=== PATIENT | female | born 1935 | race Caucasian/White ===

== ENCOUNTER → 2016-10-16 | Outpatient (CLI) | payer BC ==
[~2016-10-16] MED LIST: ALLO100T PO; ASCO500T16 PO; ASPCH81X PO; CHOL100010 PO; DRON400T PO; EZET10TA63 PO; FAMO1TAB47 PO; FURO-85 PO; GLYCDRO6 OPB; LACTTAB7 PO; LORA-741 PO; LPR25 PO; MULT-190 PO; MULT-845 PO; PRLSR20 PO
--- NOTE | 2016-10-16 12:29 | DIAGNOSTIC IMAGING REPORT ---
RENAL ULTRASOUND HISTORY: Acute renal injury. Acute renal failure. COMPARISON: Abdomen and pelvis CT 03/02/2014. FINDINGS: Right kidney: 8.2 cm. No hydronephrosis. The renal cortex is echogenic. A 7 mm upper pole cyst. Mild to moderate cortical thinning. Left kidney: 8.8 cm. No hydronephrosis. The renal cortex is diffusely echogenic. Mild to moderate cortical thinning. Bladder: No bladder wall thickening. The bilateral ureteral jets were identified. IMPRESSION: 1. No hydronephrosis. 2. Echogenic kidneys consistent with medical renal disease. 3. Mild to moderate cortical renal thinning. Electronically signed by: Klaus Moreno M.D. 10/16/2016 12:27 PM Dictated Date/Time: 10/16/2016 12:26 PM
[2016-10-16 12:34] LABS: CALCIUM 9.6 mg/dl (8.5-10.1)
[2016-10-16 12:35] LABS: BLOOD UREA NITROGEN 35 mg/dl (7-18); BUN/CREATININE RATIO 21.9 (10-20); CARBON DIOXIDE 30 mmol/L (21-32); CHLORIDE 103 mmol/L (98-107); GLUCOSE 73 mg/dl (70-99); POTASSIUM 4.1 mmol/L (3.5-5.1); SODIUM 137 mmol/L (136-145)
== END | disposition home or self-care (01) ==
LOC: C.ULTR 11:33
PROVIDERS: ATTEND Family Medicine
DX: N17.9 Acute kidney failure, unspecified (principal)

== ENCOUNTER 2016-12-08 17:59 | Emergency (ER) | payer BC ==
[~2016-12-08] VITALS: Ht 157.5 cm; Wt 84.3 kg
[~2016-12-08 17:59] MED LIST changes: -FAMO1TAB47 PO
[2016-12-08 18:10] VITALS: TEMP 36.7; Ht 157.5 cm; Wt 84.3 kg
--- NOTE | 2016-12-08 20:07 | EMERGENCY ROOM VISIT NOTE ---
History Report prepared by Raghav: Helena Brownlee Under the Supervision of: Dr. Darrion Vasquez M.D. First contact with patient: 19:44 Chief Complaint: OTHER COMPLAINT Stated Complaint: COLOSTOMY BAG CLOGGED History of Present Illness The patient is an 81 year old female who presents to the Emergency Room with complaints of an episode of a possible clog in her colostomy bag starting two days ago. The patient reports that she had the colostomy placed 3 years ago because stool was coming out her vagina. She states that it was placed by a Pat Doctor. The patient states that she has had stool come out her vagina before, but they stated that it was normal and it went away. She states that it has started again and won't go in the bag. She reports that she is having intermittent abdominal pain. She describes it as "feeling full." She complains of excessive burping. Source of History: patient Onset: two days ago Position: other (global) Quality: other (fullness) Timing: other (episode) Associated Symptoms: + abdominal pain Note: The patient complains of excessive burping. Review of Systems See HPI for pertinent positives & negatives. A total of 10 systems reviewed and were otherwise negative. Past Medical & Surgical Medical Problems: (1) Appendectomy (2) Asthma (3) Carpal tunnel syndrome (4) Diab Reyna Wo Compl, Type Ii Or Unspec Type, Not Uncntrld (5) Diverticulitis Colon (W/O Ment Of Hemorrhage) (6) ESOPHAGEAL REFLUX (7) HYPERTENSION NOS (8) Hysterectomy (9) LUMBAR DISC DISPLACEMENT (10) Pacemaker Family History Diabetes mellitus Hypertension Kidney disease Kidney stones Social History Smoking Status: Never Smoker Alcohol Use: none Drug Use: none Marital Status: single Housing Status: lives alone Occupation Status: retired Current/Historical Medications Scheduled Allopurinol (Zyloprim), 100 MG PO QAM Aspirin (Aspirin Chewable), 81 MG PO QAM Dronedarone Hcl (Multaq), 1 TAB PO BID Ezetimibe (Zetia), 10 MG PO QPM Famotidine (Famotidine), 20 MG PO DAILY Qciezban-Nlewzwtmpslq-Zrgdblzq (Artificial Tears), 1 DROP OPB QID Lactobacillus (Acidophilus), 20 MG PO QAM Lorazepam (Ativan), 0.5 MG PO HS Metoprolol Tartrate (Lopressor), 25 MG PO BID Multiple Vitamins W/ Minerals (Centrum Silver Adult 50+), 1 TAB PO QAM Ocuvite Preservision (Ocuvite Preservision), 1 TAB PO BID Scheduled PRN Furosemide (Lasix), 20 MG PO DAILY PRN for LEG SWELLING Allergies Coded Allergies: Iodinated Contrast Media (Verified Allergy, Severe, Difficulty Breathing, Severe Hives, 09/23/15) Sulfa Drugs (Verified Allergy, Mild, 09/23/15) Cephalexin (Verified Allergy, Unknown, Unknown, 09/23/15) Diphenhydramine (Verified Allergy, Unknown, DOES NOT REMEMBER, 09/23/15) Potassium Chloride (Verified Allergy, Unknown, unknown, 09/23/15) Uncoded Allergies: MUSHROOMS (Allergy, Unknown, ., 05/23/15) Physical Exam Vital Signs Date Time Temp Pulse Resp B/P (MAP) Pulse Ox O2 Delivery O2 Flow Rate FiO2 12/08/16 23:15 73 18 178/81 96 Room Air 12/08/16 21:49 67 12/08/16 21:15 70 18 190/80 96 Room Air 12/08/16 18:10 36.7 68 17 180/92 96 Room Air Physical Exam GENERAL: Patient is a healthy-appearing well-nourished HEAD: Normocephalic atraumatic EYES: Ocular movements intact pupils equal and react to light OROPHARYNX mucous membranes are moist no exudates present no erythema or edema present NECK: Supple no nuchal rigidity CHEST: Good equal expansion LUNGS: Clear and equal to auscultation CARDIAC: Normal S1 and S2 ABDOMEN: Soft nontender no guarding. Colostomy in place. BACK: No CVA tenderness EXTREMITIES: No pain upon palpation normal muscle strength in all groups no clubbing cyanosis or edema NEURO: Patient is following commands and answering questions appropriately. Alert and oriented x3 Cranial Nerves 2-12 grossly intact Medical Decision & Procedures ER Provider Diagnostic Interpretation: Radiology results as stated below per my review and radiologist interpretation: ABD/PELVIS ORAL CONT ONLY CLINICAL HISTORY: Abdominal pain. COMPARISON STUDY: CT of the abdomen and pelvis May 02, 2013 and renal ultrasound October 16, 2016. FINDINGS: Evaluation of the abdomen and pelvis is suboptimal on this unenhanced exam. Unenhanced images of the liver, spleen, adrenal glands, kidneys and pancreas are unremarkable. There is no biliary or pancreatic ductal dilatation. There is no peripancreatic or pericholecystic infiltration. There are small gallstones within the gallbladder. No hydronephrosis is present. There are postoperative findings consistent with a sigmoid resection and Tanika pouch and end colostomy. Oral contrast reaches the colostomy bag. There is no evidence for a bowel obstruction. A fat-containing umbilical hernia is present. The appendix is not visualized. No pelvic lymphadenopathy is present. No abscess or ascites is identified. IMPRESSION: 1. Status post sigmoid colon resection with formation of a Tanika pouch and end colostomy. No evidence for a bowel obstruction. Oral contrast reaches the colostomy bag. Fat-containing parastomal hernia. 2. Cholelithiasis. 3. Fat-containing umbilical hernia. Electronically signed by: Mike Zuniga M.D. 12/08/2016 11:11 PM Dictated Date/Time: 12/08/2016 11:00 PM Laboratory Results 12/08/16 20:11 Red Blood Count 4.09, Mean Corpuscular Volume 91.7, Mean Corpuscular Hemoglobin 32.0, Mean Corpuscular Hemoglobin Concent 34.9, Mean Platelet Volume 9.6, Neutrophils (%) (Auto) 58.4, Lymphocytes (%) (Auto) 21.3, Monocytes (%) (Auto) 17.5, Eosinophils (%) (Auto) 2.4, Basophils (%) (Auto) 0.2, Neutrophils # (Auto ) 5.07, Lymphocytes # (Auto) 1.85, Monocytes # (Auto) 1.52, Eosinophils # (Auto ) 0.21, Basophils # (Auto) 0.02 12/08/16 20:11 Test 12/08/16 20:11 White Blood Count 8.69 K/uL (4.8-10.8) Red Blood Count 4.09 M/uL (4.2-5.4) Hemoglobin 13.1 g/dL (12.0-16.0) Hematocrit 37.5 % (37-47) Mean Corpuscular Volume 91.7 fL (80-100) Mean Corpuscular Hemoglobin 32.0 pg (25-34) Mean Corpuscular Hemoglobin Concent 34.9 g/dl (32-36) Platelet Count 218 K/uL (130-400) Mean Platelet Volume 9.6 fL (7.4-10.4) Neutrophils (%) (Auto) 58.4 % Lymphocytes (%) (Auto) 21.3 % Monocytes (%) (Auto) 17.5 % Eosinophils (%) (Auto) 2.4 % Basophils (%) (Auto) 0.2 % Neutrophils # (Auto) 5.07 K/uL (1.4-6.5) Lymphocytes # (Auto) 1.85 K/uL (1.2-3.4) Monocytes # (Auto) 1.52 K/uL (0.11-0.59) Eosinophils # (Auto) 0.21 K/uL (0-0.5) Basophils # (Auto) 0.02 K/uL (0-0.2) RDW Standard Deviation 47.5 fL (36.4-46.3) RDW Coefficient of Variation 14.2 % (11.5-14.5) Immature Granulocyte % (Auto) 0.2 % Immature Granulocyte # (Auto) 0.02 K/uL (0.00-0.02) Urine Color YELLOW Urine Appearance CLEAR (CLEAR) Urine pH 6.5 (4.5-7.5) Urine Specific Catlin 1.014 (1.000-1.030) Urine Protein NEG (NEG) Urine Glucose (UA) NEG (NEG) Urine Ketones NEG (NEG) Urine Occult Blood NEG (NEG) Urine Nitrite NEG (NEG) Urine Bilirubin NEG (NEG) Urine Urobilinogen NEG (NEG) Urine Leukocyte Esterase MODERATE (NEG) Urine WBC (Auto) 10-30 /hpf (0-5) Urine RBC (Auto) 0-4 /hpf (0-4) Urine Hyaline Casts (Auto) 0 /lpf (0-5) Urine Epithelial Cells (Auto) 10-20 /lpf (0-5) Urine Bacteria (Auto) NEG (NEG) Anion Gap 9.0 mmol/L (3-11) Est Creatinine Clear Calc Drug Dose 26.8 ml/min Estimated GFR () 34.2 Estimated GFR (Non- 29.5 BUN/Creatinine Ratio 19.8 (10-20) Calcium Level 9.3 mg/dl (8.5-10.1) Total Bilirubin 0.5 mg/dl (0.2-1) Direct Bilirubin < 0.1 mg/dl (0-0.2) Aspartate Amino Transf (AST/SGOT) 17 U/L (15-37) Alanine Aminotransferase (ALT/SGPT) 18 U/L (12-78) Alkaline Phosphatase 120 U/L (45-117) Total Protein 7.8 gm/dl (6.4-8.2) Albumin 3.8 gm/dl (3.4-5.0) Lipase 193 U/L (73-393) Labs reviewed by ED physician. ED Course 1946: Past medical records reviewed. The patient was evaluated in room B6. A complete history and physical examination was performed. 2120: I reevaluated the patient and she was doing well. 2323: Upon reexamination the patient is resting comfortably. I discussed results and treatment plan with the patient. She verbalizes agreement and understanding. The patient is ready for discharge. Medical Decision Differential diagnosis: Etiologies such as appendicitis, diverticulitis, PUD, biliary pathology, UTI, pancreatitis, obstruction, mesenteric ischemia, aortic pathology, infections, inflammatory bowel disease, renal colic, as well as others were entertained. This is an 81-year-old female who presents emergency department complaining of colostomy bag being blocked. The patient believes she hasn't obstruction however has a normal examination. She was sent for CAT scan of the abdomen and pelvis which shows the contrast going all the way through the colostomy bag. She does not have an elevation in her white blood cell count. Her renal profile liver profile all normal at this point. I do believe that the patient can be safely discharged home for follow-up with her primary care physician. Patient was in agreement with the treatment plan. Medication Reconcilliation Current Medication List: was personally reviewed by me Blood Pressure Screening Patient's blood pressure: Elevated blood pressure Blood pressure disposition: Referred to PCP Impression Primary Impression: Abdominal pain Scribe Attestation The scribe's documentation has been prepared under my direction and personally reviewed by me in its entirety. I confirm that the note above accurately reflects all work, treatment, procedures, and medical decision making performed by me. Departure Information Dispostion Home / Self-Care Referrals Patti James M.D. (PCP) Forms HOME CARE DOCUMENTATION FORM, IMPORTANT VISIT INFORMATION, WORK / SCHOOL INSTRUCTIONS Patient Instructions My [facility] [place] Additional Instructions Clear liquid diet next 48 hours Follow up with DR Tejeda's office You were found to have an elevated blood pressure today (>120 sytolic or >90 diastolic). Per medicare guidelines, you need to follow up with this blood pressure screening with your Primary Care Physician (PCP). For a new PCP call [phone]. You have been examined and treated today on an emergency basis only. This is not a substitute for, or an effort to provide, complete comprehensive medical care. It is impossible to recognize and treat all injuries or illnesses in a single emergency department visit. It is therefore important that you follow up closely with Dr James. Call as soon as possible for an appointment. Thank you for your time and consideration. I look forward to speaking with you again soon. Please don't hesitate to call us if you have any questions. Problem Qualifiers Primary Impression: Abdominal pain Abdominal location: generalized Qualified Codes: R10.84 - Generalized abdominal pain
[2016-12-08 20:31] LABS: BASO % 0.2 %; BASO ABS # 0.02 K/uL (0-0.2); COMPLETE YES; EOS % 2.4 %; HEMATOCRIT 37.5 % (37-47); IG% 0.2 %; LYMPH % 21.3 %; LYMPH ABS # 1.85 K/uL (1.2-3.4); MEAN CELL VOLUME 91.7 fL (80-100); MEAN CORPUSCULAR HGB CONC 34.9 g/dl (32-36); MEAN PLATELET VOLUME 9.6 fL (7.4-10.4); MONO % 17.5 %; NEUT % 58.4 %; PLATELET COUNT 218 K/uL (130-400); RED BLOOD COUNT 4.09 M/uL (4.2-5.4); WHITE BLOOD COUNT 8.69 K/uL (4.8-10.8)
[2016-12-08 20:43] LABS: URINE APPEARANCE CLEAR (CLEAR); URINE BILIRUBIN NEG (NEG); URINE COLOR YELLOW; URINE NITRITE NEG (NEG); URINE PH 6.5 (4.5-7.5); URINE SPECIFIC GRAVITY 1.014 (1.000-1.030); UROBILINOGEN NEG (NEG)
[2016-12-08 20:52] LABS: MANUAL MICROSCOPIC REQUIRED? NO; REVIEW REQ? NO
[2016-12-08 20:58] LABS: ALT/SGPT 18 U/L (12-78); BLOOD UREA NITROGEN 32 mg/dl (7-18); BUN/CREATININE RATIO 19.8 (10-20); CALCIUM 9.3 mg/dl (8.5-10.1); CARBON DIOXIDE 28 mmol/L (21-32); CHLORIDE 102 mmol/L (98-107); GLUCOSE 102 mg/dl (70-99); SODIUM 139 mmol/L (136-145)
[2016-12-08 21:01] LABS: ALKALINE PHOSPHATASE 120 U/L (45-117); AST/SGOT 17 U/L (15-37)
[2016-12-08] MEDS ORDERED: FAMO1TAB47 PO (21:04)
--- NOTE | 2016-12-08 23:12 | DIAGNOSTIC IMAGING REPORT ---
ABD/PELVIS ORAL CONT ONLY CLINICAL HISTORY: Abdominal pain. COMPARISON STUDY: CT of the abdomen and pelvis May 02, 2013 and renal ultrasound October 16, 2016. FINDINGS: Evaluation of the abdomen and pelvis is suboptimal on this unenhanced exam. Unenhanced images of the liver, spleen, adrenal glands, kidneys and pancreas are unremarkable. There is no biliary or pancreatic ductal dilatation. There is no peripancreatic or pericholecystic infiltration. There are small gallstones within the gallbladder. No hydronephrosis is present. There are postoperative findings consistent with a sigmoid resection and Tanika pouch and end colostomy. Oral contrast reaches the colostomy bag. There is no evidence for a bowel obstruction. A fat-containing umbilical hernia is present. The appendix is not visualized. No pelvic lymphadenopathy is present. No abscess or ascites is identified. IMPRESSION: 1. Status post sigmoid colon resection with formation of a Tanika pouch and end colostomy. No evidence for a bowel obstruction. Oral contrast reaches the colostomy bag. Fat-containing parastomal hernia. 2. Cholelithiasis. 3. Fat-containing umbilical hernia. Electronically signed by: Mike Zuniga M.D. 12/08/2016 11:11 PM Dictated Date/Time: 12/08/2016 11:00 PM
[2016-12-08 23:15] VITALS: BP 178/81; PULSE 73; O2SAT 96
== END 2016-12-08 23:38 | disposition home or self-care (01) ==
LOC: C.EDB 18:01
DX: R10.84 Generalized abdominal pain (principal); J45.909 Unspecified asthma, uncomplicated; E11.9 Type 2 diabetes mellitus without complications; K21.9 Gastro-esophageal reflux disease without esophagitis; I10 Essential (primary) hypertension; Z83.3 Family history of diabetes mellitus; Z82.49 Family history of ischemic heart disease and other diseases of the circulatory system; Z79.82 Long term (current) use of aspirin

== ENCOUNTER 2019-06-20 17:52 | Inpatient (IN) ==
[2019-06-20] MEDS ORDERED: ALBUT/IPRATROP 3MG/0.5MG NEB 3 ML VIAL NEB STA (18:17)
[2019-06-20] MEDS ORDERED: SODIUM CHLORIDE 0.9% 250 ML IV ONE (18:22)
[2019-06-20] MEDS ORDERED: DEXAMETHASONE SOD PHOSPHATE 10 MG in SYRINGE 0 ML IV STA (18:22)
--- NOTE | 2019-06-20 18:45 | XRay Report ---
XR chest 1V portable CLINICAL HISTORY: SEPSIS dyspnea COMPARISON STUDY: 02/08/2019 FINDINGS: Moderate stable cardiomegaly. Lungs are clear. Diaphragms are smooth. Permanent bipolar car diac pacemaker. IMPRESSION: Moderate stable cardiomegaly. Otherwise negative study. ACT 112: Negative or not required by law. The above report was generated using voice recognition software. It may contain grammatical, syntax or spelling errors. Electronically signed by: Max Alatorre M.D. 06/20/2019 6:44 PM
[2019-06-20] MEDS ORDERED: DEXAMETHASONE **PF** INJ 10 MG/ML VIAL ONE (18:58)
[2019-06-20 19:10] LABS: INR 1.2 (0.9-1.1); Partial Thromboplastin Ratio 0.9; Partial Thromboplastin Time 25.1 Seconds (21.0-31.0); Prothrombin Time 12.3 Seconds (9.0-12.0)
[2019-06-20 19:20] LABS: Alanine Aminotransferase 42 U/L (12-78); Albumin Level 3.3 gm/dl (3.4-5.0); Aspartate Aminotransferase 31 U/L (15-37); BUN Creatinine Ratio 20.1 (10-20); Blood Urea Nitrogen 34 mg/dl (7-18); Calcium 8.5 mg/dl (8.5-10.1); Carbon Dioxide 25 mmol/L (21-32); Chloride 105 mmol/L (98-107); Creatinine Clr Calc Pharmacy 24.5 ml/min; Est GFR (African American) 31.1; Est GFR (Non-African American) 26.8; Glucose 119 mg/dl (70-99); Magnesium 2.4 mg/dl (1.8-2.4); Potassium 3.8 mmol/L (3.5-5.1); Sodium 137 mmol/L (136-145)
[2019-06-20 19:25] LABS: Albumin Globulin Ratio 0.9 (0.9-2); Alkaline Phosphatase 98 U/L (45-117); Bilirubin,Total 0.6 mg/dl (0.2-1); Globulin 3.6 gm/dl (2.5-4.0); NT Pro B Type Natriuretic Pept 8417 pg/ml (0-1800); Phosphorus 3.5 mg/dl (2.5-4.9); Total Protein 6.9 gm/dl (6.4-8.2); Troponin I < 0.015 ng/ml (0-0.045)
[2019-06-20 19:27] LABS: Basophils # (auto) 0.02 K/uL (0-0.2); Basophils % (auto) 0.2 %; Eosinophils # (auto) 0.11 K/uL (0-0.5); Eosinophils % (auto) 1.3 %; Hematocrit (blood only) 33.1 % (37-47); Hemoglobin 10.9 g/dL (12.0-16.0); Immature Granulocytes # (auto) 0.02 K/uL (0.00-0.02); Immature Granulocytes % (auto) 0.2 %; Lymphocytes # (auto) 0.49 K/uL (1.2-3.4); Lymphocytes % (auto) 5.9 %; Mean Corpuscular Hemoglobin 29.6 pg (25-34); Mean Corpuscular Hgb Conc 32.9 g/dL (32-36); Mean Corpuscular Volume 89.9 fL (80-100); Mean Platelet Volume 10.7 fL (7.4-10.4); Monocytes % (auto) 16.9 %; Neutrophils # (auto) 6.26 K/uL (1.4-6.5); Neutrophils % (auto) 75.5 %; Platelet Count 188 K/uL (130-400); RDW Coefficient of Variation 15.9 % (11.5-14.5); RDW Standard Deviation 52.3 fL (36.4-46.3); Red Blood Count 3.68 M/uL (4.2-5.4)
[2019-06-20 19:53] LABS: Influenza A virus by PCR Neg for Influ A (Neg); Influenza B virus by PCR Neg for Influ B (Neg)
[2019-06-20] MEDS ORDERED: FUROSEMIDE 40 MG/4 ML VIAL IV STA (21:07)
[2019-06-20] MEDS ORDERED: DOXYCYCLINE HYCLATE 100 MG in DEXTROSE 5% 100 ML IV STA (21:07)
[2019-06-20 23:14] LABS: Appearance Urine Slightly Cloudy (Clear); Bilirubin Urine Negative (Negative); Blood Urine Negative (Negative); Color Urine Yellow; Glucose Urine UA Negative (Negative); Ketones Urine Negative (Negative); Leukocyte Esterase Urine Trace (Negative); Nitrite Urine Negative (Negative); Protein Urine 1+ (Negative); Urobilinogen Urine Negative (Negative)
[2019-06-20 23:30] LABS: RBC Urine 0-4 /hpf (0-4)
[2019-06-20 23:31] LABS: Bacteria Urine 1+ (Negative)
--- NOTE | 2019-06-21 03:10 | Emergency Department Note ---
Entered by Lily Khan acting as a scribe for Bhavin Desai MD History of Present Illness General Chief complaint: Illness Stated complaint: FLU LIKE SX Time Seen by Provider: 06/20/19 18:13 Source: patient History of Present Illness Provider complaint: illness Onset (ago): week(s) 1 Location: left and right Pain Consistency: + constant Quality: + other (illness) Associated symptoms: + cough and + other (Positive congestion; Positive leg swelling;); no fever/chills (Positive slight chills; Negative fever;), no loss of appetite and no nausea/vomiting Treatments prior to arrival: other (Negative inhaler;) The patient, who is a 83 year old female with a medical history of atrial fibrillation, DJD, and osteoarthritis, presents to the Emergency Room with complaints of a constant illness that started one week ago. The patient confirms that she is experiencing a cough and congestion. The patient notes that she has bilateral lower extremity swelling that she has never experienced before. The patient denies fevers but states that she has been slightly cold. The patient denies loss of appetite, nausea or vomiting. The patient denies any visits to her PCP for her current condition. The patient confirms that she has a colostomy bag due to her diverticulitis. The patient denies the use of inhalers. The patient states that she is on a blood thinner but is unsure of the name. The patient states that she lives by herself. Home Medications Home Medications Medication Instructions Recorded Confirmed Type allopurinol 100 mg PO QAM 06/20/19 06/20/19 History artificial tears(hypromellose) 1 drp OPHTHALMIC (EYE) QID PRN 06/20/19 06/20/19 History dronedarone [Multaq] 400 mg PO BID 06/20/19 06/20/19 History ezetimibe 10 mg PO QAM 06/20/19 06/20/19 History furosemide 20 mg PO DAILY PRN 06/20/19 06/20/19 History lorazepam 0.5 mg PO HS 06/20/19 06/20/19 History meclizine 12.5 mg PO Q6H PRN 06/20/19 06/20/19 History metoprolol tartrate 25 mg PO BID 06/20/19 06/20/19 History tuyflrqr-qpw-kpwf-FA-lutein 1 tab PO QAM 06/20/19 06/20/19 History [Centrum Silver Women] nitroglycerin [Nitrostat] 0.4 mg SUBLINGUAL DIRECTED PRN 06/20/19 06/20/19 History omeprazole 20 mg PO QAM 06/20/19 06/20/19 History sertraline 25 mg PO HS 06/20/19 06/20/19 History vit C,B-Ie-rkfyb-lutein-zeaxan 1 tab PO BID 06/20/19 06/20/19 History [PreserVision AREDS-2] Allergies Allergy/AdvReac Type Severity Reaction Status Date / Time Iodinated Contrast Media Allergy Severe Difficulty Verified 06/20/19 20:50 Breathing, Severe Hives Sulfa (Sulfonamide Allergy Mild . Verified 06/20/19 20:50 Antibiotics) cephalexin Allergy Unknown Unknown Verified 06/20/19 20:50 diphenhydramine Allergy Unknown DOES NOT Verified 06/20/19 20:50 REMEMBER potassium chloride Allergy Unknown unknown Verified 06/20/19 20:50 MUSHROOMS Allergy Unknown . Uncoded 06/20/19 20:50 Past Med/Surg History Medical History Abnormal stress test Ambulatory dysfunction (Acute) Atrial fibrillation (Acute 04/24/13) Chest pain Contusion of left hip (Acute) Degenerative arthritis of knee (Acute 03/16/14) Dizziness (Acute) DJD (degenerative joint disease) (Acute) GI bleed (Acute) Gouty arthritis (Acute) Head trauma (Acute) Headache (Acute) Hemarthrosis (Acute) Hip hematoma, left (Acute) Left knee DJD (Acute) Left knee pain (Acute) Osteoarthritis (Acute) Pacemaker (Resolved) Rib fracture (Acute) Right rib fracture (Acute) Scalp hematoma (Acute) UTI (urinary tract infection) (Acute) Weakness (Acute) Social History Preferred Language: Norwegian Communication Ability: Effective Procurement Coordinator Required: No Beliefs That Will Affect Care: None Current Living Situation: Alone Feels Safe at Home: Yes Smoking Status: Never smoker Hx Alcohol Use: No Hx Substance Use: No Review of Systems See HPI for pertinent positives & negatives. and A total of 10 systems reviewed and were otherwise negative Physical Exam Vital Signs Vital Signs - 24 hr 06/20/19 18:00 06/20/19 18:09 06/20/19 18:10 Temperature 36.4 C L Temperature Source Oral Pulse Rate 113 H 108 H 110 H Pulse Rate [Right Finger] Pulse Rate from SpO2 Sensor Respiratory Rate 22 20 18 Respiratory Effort / Characteristics Respiratory Depth Blood Pressure 171/107 H 171/107 H Blood Pressure [Right Arm] Blood Pressure Mean 128 128 Blood Pressure Mean [Right Arm] Blood Pressure Position [Right Arm] Pulse Oximetry 97 Oxygen Delivery Method Room Air Sepsis Recent Fever Within 48 Hours No Sepsis New/Unexplained Change in Mental Status No Sepsis Action Taken by Nursing No Action Required 06/20/19 18:15 06/20/19 18:30 06/20/19 18:31 Temperature Temperature Source Pulse Rate 115 H 111 H Pulse Rate [Right Finger] 112 H Pulse Rate from SpO2 Sensor Respiratory Rate 22 20 20 Respiratory Effort / Characteristics Non-Labored Spontaneous Respiratory Depth Blood Pressure Blood Pressure [Right Arm] Blood Pressure Mean Blood Pressure Mean [Right Arm] Blood Pressure Position [Right Arm] Pulse Oximetry 100 Oxygen Delivery Method Room Air Sepsis Recent Fever Within 48 Hours Sepsis New/Unexplained Change in Mental Status Sepsis Action Taken by Nursing 06/20/19 18:37 06/20/19 18:45 06/20/19 19:00 Temperature Temperature Source Pulse Rate 124 H 122 H Pulse Rate [Right Finger] Pulse Rate from SpO2 Sensor 121 H 120 H Respiratory Rate 22 20 Respiratory Effort / Characteristics Respiratory Depth Blood Pressure Blood Pressure [Right Arm] Blood Pressure Mean Blood Pressure Mean [Right Arm] Blood Pressure Position [Right Arm] Pulse Oximetry 94 94 99 Oxygen Delivery Method Sepsis Recent Fever Within 48 Hours Sepsis New/Unexplained Change in Mental Status Sepsis Action Taken by Nursing 06/20/19 19:07 06/20/19 19:08 06/20/19 19:15 Temperature Temperature Source Pulse Rate 106 H 111 H 115 H Pulse Rate [Right Finger] Pulse Rate from SpO2 Sensor 118 H 115 H 116 H Respiratory Rate 15 18 18 Respiratory Effort / Characteristics Respiratory Depth Blood Pressure 169/108 H Blood Pressure [Right Arm] Blood Pressure Mean 150 Blood Pressure Mean [Right Arm] Blood Pressure Position [Right Arm] Pulse Oximetry 98 97 94 Oxygen Delivery Method Sepsis Recent Fever Within 48 Hours Sepsis New/Unexplained Change in Mental Status Sepsis Action Taken by Nursing 06/20/19 19:30 06/20/19 19:31 06/20/19 19:45 Temperature Temperature Source Pulse Rate 121 H 110 H 109 H Pulse Rate [Right Finger] Pulse Rate from SpO2 Sensor 114 H 108 H 109 H Respiratory Rate 16 19 12 Respiratory Effort / Characteristics Respiratory Depth Blood Pressure 156/83 H Blood Pressure [Right Arm] Blood Pressure Mean 111 Blood Pressure Mean [Right Arm] Blood Pressure Position [Right Arm] Pulse Oximetry 98 98 96 Oxygen Delivery Method Sepsis Recent Fever Within 48 Hours Sepsis New/Unexplained Change in Mental Status Sepsis Action Taken by Nursing 06/20/19 20:00 06/20/19 20:01 06/20/19 20:15 Temperature Temperature Source Pulse Rate 121 H 119 H 115 H Pulse Rate [Right Finger] Pulse Rate from SpO2 Sensor 125 H 121 H 124 H Respiratory Rate 16 17 13 Respiratory Effort / Characteristics Respiratory Depth Blood Pressure 125/78 Blood Pressure [Right Arm] Blood Pressure Mean 84 Blood Pressure Mean [Right Arm] Blood Pressure Position [Right Arm] Pulse Oximetry 93 95 98 Oxygen Delivery Method Sepsis Recent Fever Within 48 Hours Sepsis New/Unexplained Change in Mental Status Sepsis Action Taken by Nursing 06/20/19 20:30 06/20/19 20:31 06/20/19 20:45 Temperature Temperature Source Pulse Rate 122 H 121 H 103 H Pulse Rate [Right Finger] Pulse Rate from SpO2 Sensor 123 H 115 H 114 H Respiratory Rate 13 14 20 Respiratory Effort / Characteristics Respiratory Depth Blood Pressure 136/97 Blood Pressure [Right Arm] Blood Pressure Mean 110 Blood Pressure Mean [Right Arm] Blood Pressure Position [Right Arm] Pulse Oximetry 96 95 95 Oxygen Delivery Method Sepsis Recent Fever Within 48 Hours Sepsis New/Unexplained Change in Mental Status Sepsis Action Taken by Nursing 06/20/19 21:00 06/20/19 21:01 06/20/19 21:15 Temperature Temperature Source Pulse Rate 114 H 112 H 111 H Pulse Rate [Right Finger] Pulse Rate from SpO2 Sensor 111 H 113 H 109 H Respiratory Rate 24 20 20 Respiratory Effort / Characteristics Respiratory Depth Blood Pressure 140/101 H Blood Pressure [Right Arm] Blood Pressure Mean 107 Blood Pressure Mean [Right Arm] Blood Pressure Position [Right Arm] Pulse Oximetry 94 95 96 Oxygen Delivery Method Sepsis Recent Fever Within 48 Hours Sepsis New/Unexplained Change in Mental Status Sepsis Action Taken by Nursing 06/20/19 21:30 06/20/19 21:31 06/20/19 21:45 Temperature Temperature Source Pulse Rate 117 H 113 H 111 H Pulse Rate [Right Finger] Pulse Rate from SpO2 Sensor 120 H 110 H 116 H Respiratory Rate 19 17 20 Respiratory Effort / Characteristics Respiratory Depth Blood Pressure 134/101 H Blood Pressure [Right Arm] Blood Pressure Mean 110 Blood Pressure Mean [Right Arm] Blood Pressure Position [Right Arm] Pulse Oximetry 96 94 94 Oxygen Delivery Method Sepsis Recent Fever Within 48 Hours Sepsis New/Unexplained Change in Mental Status Sepsis Action Taken by Nursing 06/20/19 22:00 06/20/19 22:01 06/20/19 22:22 Temperature Temperature Source Pulse Rate 112 H 122 H 128 H Pulse Rate [Right Finger] Pulse Rate from SpO2 Sensor 117 H 119 H Respiratory Rate 21 17 19 Respiratory Effort / Characteristics Respiratory Depth Blood Pressure 136/88 Blood Pressure [Right Arm] Blood Pressure Mean 96 Blood Pressure Mean [Right Arm] Blood Pressure Position [Right Arm] Pulse Oximetry 95 96 Oxygen Delivery Method Sepsis Recent Fever Within 48 Hours Sepsis New/Unexplained Change in Mental Status Sepsis Action Taken by Nursing 06/20/19 22:30 06/21/19 00:15 Temperature Temperature Source Pulse Rate 120 H Pulse Rate [Right Finger] 97 H Pulse Rate from SpO2 Sensor Respiratory Rate 22 18 Respiratory Effort / Characteristics Respiratory Depth Normal Blood Pressure Blood Pressure [Right Arm] 139/91 Blood Pressure Mean Blood Pressure Mean [Right Arm] 107 Blood Pressure Position [Right Arm] Lying Pulse Oximetry 96 Oxygen Delivery Method Room Air Sepsis Recent Fever Within 48 Hours Sepsis New/Unexplained Change in Mental Status Sepsis Action Taken by Nursing GENERAL: Awake, alert, fatigue-appearing, in no distress HENT: Normocephalic, atraumatic. Oropharynx with dry mucous membranes and otherwise unremarkable. EYES: Normal conjunctiva. Sclera non-icteric. NECK: Supple. No nuchal rigidity. FROM. Mild JVD. RESPIRATORY: Scattered wheezes and rhonchi, diminished at bases. CARDIAC: Regular rate, irregular rhythm. Extremities warm and well perfused. Pulses equal. ABDOMEN: Soft, non-distended. No tenderness to palpation. No rebound or guarding. No masses. RECTAL: Deferred. MUSCULOSKELETAL: Chest examination reveals no tenderness. The back is symmetrical on inspection without obvious abnormality. There is no CVA tenderne ss to palpation. No joint edema. LOWER EXTREMITIES: Calves are equal size bilaterally and non-tender. 2+ bilateral pedal edema. No discoloration. NEURO: Normal sensorium. No sensory or motor deficits noted. SKIN: No rash or jaundice noted. Course Course 1815: Past medical records reviewed. The patient was evaluated in room C10. A complete history and physical exam was performed. 2103: I reasessed the patient and informed her labs and results at this time. 2124: I reviewed the patient's case with Dr. Morrison, [facility] Hospitalist. He will evaluate the patient for further management. Consultations Consultation #1: I reviewed the patient's case with Dr. Morrison, [facility] Hospitalist. He will evaluate the patient for further management. Time: 21:25 Administered Medications Discontinued Medications Albuterol (Duoneb) 3 ml NEB NOW STA Stop: 06/20/19 18:18 Last Admin: 06/20/19 18:31 Dose: 3 ml Documented by: [id number] Dexamethasone Sodium Phosphate (Decadron Pf) Confirm Administered Dose 10 mg .ROUTE .STK-MED ONE Stop: 06/20/19 18:59 Last Admin: 06/20/19 19:01 Dose: 10 mg Documented by: [id number] Furosemide (Lasix) 20 mg IV NOW STA Stop: 06/20/19 21:08 Last Admin: 06/20/19 22:02 Dose: 20 mg Documented by: [id number] Dexamethasone Sodium Phosphate (10 mg/ Syringe) 2.5 mls @ 1 mls/min IV NOW STA Stop: 06/20/19 18:24 Last Admin: 06/20/19 19:01 Dose: Not Given Documented by: [id number] Sodium Chloride (Nss) 250 mls @ 999 mls/hr IV .Q16M ONE Stop: 06/20/19 18:37 Last Infusion: 06/20/19 20:36 Dose: 0 mls/hr Documented by: [id number] Admin: 06/20/19 19:02 Dose: 999 mls/hr Documented by: [id number] Doxycycline Hyclate 100 mg/ (Dextrose) 110 mls @ 50 mls/hr IV NOW STA Stop: 06/20/19 23:18 Last Infusion: 06/21/19 03:47 Dose: 0 mls/hr Documented by: [id number] Admin: 06/20/19 22:04 Dose: 50 mls/hr Documented by: [id number] Medical Decision Making Differential Diagnosis Differential diagnosis includes: viral syndrome, otitis, pharyngitis, pneumonia, influenza, meningitis, urinary tract infection, sepsis, bacteremia, as well as others were entertained. Medical Records Attestation: I reviewed the patient's medical records. Home Medications Current Medication List: was personally reviewed by me Laboratory Data Attestation: I reviewed the patient's lab results. Result diagrams: 06/20/19 18:03 06/20/19 18:03 Lab Results 06/20/19 06/20/19 06/20/19 Range/Units 18:03 18:03 18:03 WBC 8.30 (4.8-10.8) K/uL RBC 3.68 L (4.2-5.4) M/uL Hgb 10.9 L (12.0-16.0) g/dL Hct 33.1 L (37-47) % MCV 89.9 (80-100) fL MCH 29.6 (25-34) pg MCHC 32.9 (32-36) g/dL RDW Std Deviation 52.3 H (36.4-46.3) fL RDW Coeff of Thee 15.9 H (11.5-14.5) % Plt Count 188 (130-400) K/uL MPV 10.7 H (7.4-10.4) fL Immature Gran % (Auto) 0.2 % Neut % (Auto) 75.5 % Lymph % (Auto) 5.9 % Converse % (Auto) 16.9 % Eos % (Auto) 1.3 % Baso % (Auto) 0.2 % Immature Gran # (Auto) 0.02 (0.00-0.02) K/uL Neut # (Auto) 6.26 (1.4-6.5) K/uL Lymph # (Auto) 0.49 L (1.2-3.4) K/uL [place] # (Auto) 1.40 H (0.11-0.59) K/uL Eos # (Auto) 0.11 (0-0.5) K/uL Baso # (Auto) 0.02 (0-0.2) K/uL PT 12.3 H (9.0-12.0) Seconds INR 1.2 H (0.9-1.1) APTT 25.1 (21.0-31.0) Seconds PTT Ratio 0.9 Sodium 137 (136-145) mmol/L Potassium 3.8 (3.5-5.1) mmol/L Chloride 105 (98-107) mmol/L Carbon Dioxide 25 (21-32) mmol/L Anion Gap 7.0 (3-11) BUN 34 H (7-18) mg/dl Creatinine 1.71 H (0.6-1.2) mg/dl Est Cr Clr Drug Dosing 24.5 ml/min Est GFR ( Amer) 31.1 Est GFR (Non-Af Amer) 26.8 BUN/Creatinine Ratio 20.1 H (10-20) Glucose 119 H (70-99) mg/dl Lactate (0.4-2.0) mmol/L Calcium 8.5 (8.5-10.1) mg/dl Phosphorus 3.5 (2.5-4.9) mg/dl Magnesium 2.4 (1.8-2.4) mg/dl Total Bilirubin 0.6 (0.2-1) mg/dl AST 31 (15-37) U/L ALT 42 (12-78) U/L Alkaline Phosphatase 98 (45-117) U/L Troponin I < 0.015 (0-0.045) ng/ml NT-Pro-B Natriuret Pep 8417 H (0-1800) pg/ml Total Protein 6.9 (6.4-8.2) gm/dl Albumin 3.3 L (3.4-5.0) gm/dl Globulin 3.6 (2.5-4.0) gm/dl Albumin/Globulin Ratio 0.9 (0.9-2) Urine Color Urine Appearance (Clear) Urine pH (4.5-7.5) Ur Specific [place] (1.000-1.030) Urine Protein (Negative) Urine Glucose (UA) (Negative) Urine Ketones (Negative) Urine Blood (Negative) Urine Nitrite (Negative) Urine Bilirubin (Negative) Urine Urobilinogen (Negative) Ur Leukocyte Esterase (Negative) Urine RBC (0-4) /hpf Urine WBC (0-5) /hpf Ur Epithelial Cells (0-5) /lpf Urine Bacteria (Negative) Influenza Type A (PCR) (Neg) Influenza Type B (PCR) (Neg) 06/20/19 06/20/19 06/20/19 Range/Units 19:03 19:16 22:00 WBC (4.8-10.8) K/uL RBC (4.2-5.4) M/uL Hgb (12.0-16.0) g/dL Hct (37-47) % MCV (80-100) fL MCH (25-34) pg MCHC (32-36) g/dL RDW Std Deviation (36.4-46.3) fL RDW Coeff of Thee (11.5-14.5) % Plt Count (130-400) K/uL MPV (7.4-10.4) fL Immature Gran % (Auto) % Neut % (Auto) % Lymph % (Auto) % [place] % (Auto) % Eos % (Auto) % Baso % (Auto) % Immature Gran # (Auto) (0.00-0.02) K/uL Neut # (Auto) (1.4-6.5) K/uL Lymph # (Auto) (1.2-3.4) K/uL [place] # (Auto) (0.11-0.59) K/uL Eos # (Auto) (0-0.5) K/uL Baso # (Auto) (0-0.2) K/uL PT (9.0-12.0) Seconds INR (0.9-1.1) APTT (21.0-31.0) Seconds PTT Ratio Sodium (136-145) mmol/L Potassium (3.5-5.1) mmol/L Chloride (98-107) mmol/L Carbon Dioxide (21-32) mmol/L Anion Gap (3-11) BUN (7-18) mg/dl Creatinine (0.6-1.2) mg/dl Est Cr Clr Drug Dosing ml/min Est GFR ( Amer) Est GFR (Non-Af Amer) BUN/Creatinine Ratio (10-20) Glucose (70-99) mg/dl Lactate 1.2 (0.4-2.0) mmol/L Calcium (8.5-10.1) mg/dl Phosphorus (2.5-4.9) mg/dl Magnesium (1.8-2.4) mg/dl Total Bilirubin (0.2-1) mg/dl AST (15-37) U/L ALT (12-78) U/L Alkaline Phosphatase (45-117) U/L Troponin I (0-0.045) ng/ml NT-Pro-B Natriuret Pep (0-1800) pg/ml Total Protein (6.4-8.2) gm/dl Albumin (3.4-5.0) gm/dl Globulin (2.5-4.0) gm/dl Albumin/Globulin Ratio (0.9-2) Urine Color Yellow Urine Appearance Slightly Cloudy (Clear) Urine pH 6.0 (4.5-7.5) Ur Specific [place] 1.020 (1.000-1.030) Urine Protein 1+ H (Negative) Urine Glucose (UA) Negative (Negative) Urine Ketones Negative (Negative) Urine Blood Negative (Negative) Urine Nitrite Negative (Negative) Urine Bilirubin Negative (Negative) Urine Urobilinogen Negative (Negative) Ur Leukocyte Esterase Trace H (Negative) Urine RBC 0-4 (0-4) /hpf Urine WBC 5-10 H (0-5) /hpf Ur Epithelial Cells 5-10 H (0-5) /lpf Urine Bacteria 1+ H (Negative) Influenza Type A (PCR) Neg for Influ A (Neg) Influenza Type B (PCR) Neg for Influ B (Neg) Imaging Data Radiologist's Impression: Radiology results as stated below per my review and the radiologist's interpretation: XR chest 1V portable CLINICAL HISTORY: SEPSIS dyspnea COMPARISON STUDY: 02/08/2019 FINDINGS: Moderate stable cardiomegaly. Lungs are clear. Diaphragms are smooth. Permanent bipolar cardiac pacemaker. IMPRESSION: Moderate stable cardiomegaly. Otherwise negative study. ACT 112: Negative or not required by law. The above report was generated using voice recognition software. It may contain grammatical, syntax or spelling errors. Electronically signed by: Max Alatorre M.D. 06/20/2019 6:44 PM ECG Data Attestation: I personally reviewed and interpreted this ECG as follows: Indication: + weakness Rate (beats per minute): 117 Rhythm: + atrial fibrillation ECG Intervals/blocks: + Right Bundle branch block ECG [place]: + Left axis deviation ECG ST segments: no ST elevation ECG Findings: + LVH and + Other (RVR; T-wave abnormality laterally; QTC is 499; QRS is 122) Comparison ECG Date: from (09/18/2017) Change: the following changes noted (Conduction delay similar to prior; ) Blood Pressure Blood Pressure Findings: Elevated blood pressure Blood Pressure Disposition: further management by hospitalist MDM Narrative The patient is a pleasant 83-year-old woman with a past medical history of paroxysmal atrial fibrillation, status post PPM, hypertension, hyperlipidemia, stage IV CKD who presents emergency department with cough congestion and generalized fatigue over the past week per HPI. On arrival patient is fatigued appearing but no acute distress, afebrile stable vital signs. She has scant wheezes and rhonchi and is diminished at the bases. She has 2+ bilateral lower extremity edema. EKG demonstrates A. fib with right bundle branch block without overt acute ischemia and otherwise similar to prior. Chest x-ray negative for acute process. WBC and platelets within normal limits. H/H 10.9/33.1 without recent values for comparison. Creatinine 1.7 approximate 2 prior range of values in the setting of history of CKD. Lactate within normal limits. Electrolytes and LFTs unremarkable. Troponin negative/undetectable. BNP 8400 prior values for comparison. UA with 5-10 WBCs and 1+ bacteria albeit with e pithelial cells. Flu negative. Patient did report some improvement after dexamethasone and DuoNeb and small 250 cc IV fluid bolus. However, the patient does overall appear overloaded and so was given a one-time dose of Lasix. Symptoms possibly related to a component of a bronchitis as well as her volume overload. Patient did feel improved she did report she feels too weak to go home where she lives by herself and has been unable to contact her daughters, only one who lives locally.. Given the patient's flulike illness in the setting of this frail elderly patient with medical comorbidities reasonable to to admit for observation. Case was discussed with Dr. Morrison, [facility] hospitalist, who will evaluate the patient for admission. Impression & Plan Bronchitis, Weakness, Volume overload, CKD (chronic kidney disease), Elevated brain natriuretic peptide (BNP) level Discharge Plan Visit Data Chief Complaint: Illness Stated Complaint: FLU LIKE SX ED Provider: Bhavin Desai Discharge Problem: Bronchitis, Weakness, Volume overload, CKD (chronic kidney disease), Elevated brain natriuretic peptide (BNP) level Patient Disposition: Being Evaluated by Hospitalist Discharge Instructions Interventions: ED Discharge Assessment Last Done: 06/21/19 03:14 Discharge Problem: Volume overload Qualifiers: Hypervolemia type: unspecified Qualified Code(s): E87.70 - Fluid overload, unspecified The scribe's documentation has been prepared under my direction and personally reviewed by me in its entirety. I confirm that the note above accurately reflects all work, treatment, procedures, and medical decision making performed by me.
[2019-06-21] MEDS ORDERED: ONDANSETRON INJ 2 MG/ML 2 ML VIAL IV PRN (03:45)
[2019-06-21] MEDS ORDERED: ACETAMINOPHEN 325 MG TAB PO PRN (03:45)
[2019-06-21] MEDS ORDERED: ALUMINUM/MAGNESIUM SUSP 30 ML UDC PO PRN (03:45)
[2019-06-21] MEDS ORDERED: MECLIZINE 12.5 MG TAB PO PRN (03:45)
[2019-06-21] MEDS ORDERED: NITROGLYCERIN SL 0.4 MG/TAB TAB SL PRN (03:45)
[2019-06-21] MEDS ORDERED: MAGNESIUM HYDROXIDE SUSP 30 ML UDC PO PRN (03:45)
[2019-06-21] MEDS ORDERED: LEVOFLOXACIN/D5W 500 MG/100 ML BAG IV SCH (04:00)
[2019-06-21] MEDS ORDERED: ARTIFICIAL TEARS OP PRN (04:24)
[2019-06-21] MEDS: methylPREDNISolone 40 MG in SYRINGE 0 ML IV SCH ×2 (04:34→11:35)
[2019-06-21] MEDS: DRONEDARONE HCL 400 MG TAB PO SCH ×3 (04:36→21:36)
[2019-06-21] MEDS: METOPROLOL TARTRATE 25 MG TAB PO SCH ×3 (04:36→21:37)
--- NOTE | 2019-06-21 06:43 | History & Physical Report ---
Date of Service June 21, 2019 Assessment & Plan (1) Bronchitis: Admit to monitored bed. Methylprednisolone 40 mg IV every 8 hours Pulmicort Respules 0.5 mg inhaled twice daily Levofloxacin 500 mg IV daily Likely contributing to her generalized weakness and ambulatory dysfunction Present on Admission?: Yes (2) Weakness: Generalized weakness/ambulatory dysfunction- Patient reportedly is living by herself. I suspect this is something which should be looked into further, as patient may be having difficulty taking care of herself Present on Admission?: Yes (3) CKD (chronic kidney disease): Creatinine of 1.71, with normal range 1.58-1.70 Present on Admission?: Yes (4) Atrial fibrillation: Atrial fibrillation/pacemaker/hypertension- The patient will be admitted to telemetry for serial cardiac enzymes, serial EKG's, cardiac rhythm monitoring and a 2-D echocardiogram with Dopplers. Continue dronedarone, and metoprolol tartrate. Present on Admission?: Yes (5) Pacemaker: See above Present on Admission?: Yes (6) Ambulatory dysfunction: See above Present on Admission?: Yes (7) Depression: Continue sertraline 25 mg at bedtime. Patient is showing some signs of worsening depression, and may need to have medications adjusted. Again as noted above living by herself may be getting to be too much for her. Present on Admission?: Yes History of Present Illness Chief Complaint: The patient presents to the emergency department with shortness of breath, generalized fatigue and weakness, cough and congestion that began 1 week prior to arrival. Primary Care Provider: Patti James MD The patient is an 83-year-old female with a past medical history including CKD, generalized weakness, UTI, atrial fibrillation, status post pacemaker, history of GI bleed, ambulatory dysfunction, dizziness, rib fractures, osteoarthritis and gouty arthritis. She presents to the emergency department with symptoms as noted above. She denies any dysfunctionality of her colostomy bag which was placed secondary to diverticulitis. Of note, the patient lives by herself, which may need to be assessed if appropriate prior to discharge. Allergies Allergy/AdvReac Type Severity Reaction Status Date / Time Iodinated Contrast Media Allergy Severe Difficulty Verified 06/20/19 20:50 Breathing, Severe Hives Sulfa (Sulfonamide Allergy Mild . Verified 06/20/19 20:50 Antibiotics) cephalexin Allergy Unknown Unknown Verified 06/20/19 20:50 diphenhydramine Allergy Unknown DOES NOT Verified 06/20/19 20:50 REMEMBER potassium chloride Allergy Unknown unknown Verified 06/20/19 20:50 MUSHROOMS Allergy Unknown . Uncoded 06/20/19 20:50 Home Medications Home Medications Medication Instructions Recorded Confirmed Type allopurinol 100 mg PO QAM 06/20/19 06/20/19 History artificial tears(hypromellose) 1 drp OPHTHALMIC (EYE) QID PRN 06/20/19 06/20/19 History dronedarone [Multaq] 400 mg PO BID 06/20/19 06/20/19 History ezetimibe 10 mg PO QAM 06/20/19 06/20/19 History furosemide 20 mg PO DAILY PRN 06/20/19 06/20/19 History lorazepam 0.5 mg PO HS 06/20/19 06/20/19 History meclizine 12.5 mg PO Q6H PRN 06/20/19 06/20/19 History metoprolol tartrate 25 mg PO BID 06/20/19 06/20/19 History oidhwugz-ldk-lbjr-FA-lutein 1 tab PO QAM 06/20/19 06/20/19 History [Centrum Silver Women] nitroglycerin [Nitrostat] 0.4 mg SUBLINGUAL DIRECTED PRN 06/20/19 06/20/19 History omeprazole 20 mg PO QAM 06/20/19 06/20/19 History sertraline 25 mg PO HS 06/20/19 06/20/19 History vit C,G-Uo-urpes-lutein-zeaxan 1 tab PO BID 06/20/19 06/20/19 History [PreserVision AREDS-2] Past Med/Surg History Medical History Abnormal stress test Ambulatory dysfunction (Acute) Atrial fibrillation (Acute 04/24/13) Chest pain Contusion of left hip (Acute) Degenerative arthritis of knee (Acute 03/16/14) Dizziness (Acute) DJD (degenerative joint disease) (Acute) GI bleed (Acute) Gouty arthritis (Acute) Head trauma (Acute) Headache (Acute) Hemarthrosis (Acute) Hip hematoma, left (Acute) Left knee DJD (Acute) Left knee pain (Acute) Osteoarthritis (Acute) Pacemaker (Resolved) Rib fracture (Acute) Right rib fracture (Acute) Scalp hematoma (Acute) UTI (urinary tract infection) (Acute) Weakness (Acute) Social History Preferred Language: Slovenian Communication Ability: Effective Account Analyst Required: No Beliefs That Will Affect Care: None Current Living Situation: Alone Feels Safe at Home: Yes Smoking Status: Never smoker Hx Alcohol Use: No Hx Substance Use: No Review of Systems Review of Systems: The patient denies lower extremity swelling, sore throat, fevers, chills, sweats, vomiting, diarrhea , constipation, abdominal pain, pelvic pain, blood in urine or stool, dysuria, urinary frequency or urgency, lightheadedness, dizziness, headache, loss of consciousness, rash, abnormal bruising or bleeding, focal weakness, numbness or tingling in arms or legs, back or neck pain, or night sweats. The review of systems is otherwise negative other than for that already noted above, and at least 10 systems have been reviewed. Physical Exam Physical Exam: The patient is awake, alert and oriented 3, looks chronically ill and fatigued, normocephalic and atraumatic, lying in bed and in no acute distress. HEENT--PERRL, EOMI, mucous membranes and oropharynx dry. Neck--supple. No JVD. No bruits. Thyroid normal, trachea midline, no adenopathy. Heart--normal S1 and S2. No murmurs, rubs or gallops. Lungs--clear bilaterally, no respiratory distress, no accessory muscle use. Abdomen--normal bowel sounds and soft. Nontender. Nondistended. Extremities--no cyanosis or clubbing. No edema. There are good distal pulses b/l. Dermatologic--normal skin turgor, normal color, no abnormal lymph nodes, no rash. Neurologic--cranial nerves II through XII grossly intact. Rheumatologic--normal range of motion. Psychiatric--normal affect. Results & Data Vital Signs (Past 12 Hours) Vital Signs Pulse Pulse Resp BP BP Pulse Ox 06/21/19 03:14 105 H 18 149/90 H 96 06/21/19 03:01 96 H 16 143/90 H 95 06/21/19 01:30 93 H 16 125/85 97 06/21/19 00:15 97 H 18 139/91 96 06/20/19 22:30 120 H 22 06/20/19 22:22 128 H 19 06/20/19 22:01 122 H 17 96 06/20/19 22:00 112 H 21 136/88 95 06/20/19 21:45 111 H 20 94 06/20/19 21:31 113 H 17 94 06/20/19 21:30 117 H 19 134/101 H 96 06/20/19 21:15 111 H 20 96 06/20/19 21:01 112 H 20 95 06/20/19 21:00 114 H 24 140/101 H 94 06/20/19 20:45 103 H 20 95 06/20/19 20:31 121 H 14 95 06/20/19 20:30 122 H 13 136/97 96 06/20/19 20:15 115 H 13 98 06/20/19 20:01 119 H 17 95 06/20/19 20:00 121 H 16 125/78 93 06/20/19 19:45 109 H 12 96 06/20/19 19:31 110 H 19 98 06/20/19 19:30 121 H 16 156/83 H 98 06/20/19 19:15 115 H 18 94 06/20/19 19:08 111 H 18 97 06/20/19 19:07 106 H 15 169/108 H 98 06/20/19 19:00 122 H 20 99 06/20/19 18:45 124 H 22 94 06/20/19 18:37 94 06/20/19 18:31 112 H 20 100 Laboratory Results Laboratory Results WBC 8.30 K/uL (4.8-10.8) 06/20/19 18:03 RBC 3.68 M/uL (4.2-5.4) L 06/20/19 18:03 Hgb 10.9 g/dL (12.0-16.0) L 06/20/19 18:03 Hct 33.1 % (37-47) L 06/20/19 18:03 MCV 89.9 fL (80-100) 06/20/19 18:03 MCH 29.6 pg (25-34) 06/20/19 18:03 MCHC 32.9 g/dL (32-36) 06/20/19 18:03 RDW Std Deviation 52.3 fL (36.4-46.3) H 06/20/19 18:03 RDW Coeff of Thee 15.9 % (11.5-14.5) H 06/20/19 18:03 Plt Count 188 K/uL (130-400) 06/20/19 18:03 MPV 10.7 fL (7.4-10.4) H 06/20/19 18:03 Immature Gran % (Auto) 0.2 % 06/20/19 18:03 Neut % (Auto) 75.5 % 06/20/19 18:03 Lymph % (Auto) 5.9 % 06/20/19 18:03 Mccone % (Auto) 16.9 % 06/20/19 18:03 Eos % (Auto) 1.3 % 06/20/19 18:03 Baso % (Auto) 0.2 % 06/20/19 18:03 Immature Gran # (Auto) 0.02 K/uL (0.00-0.02) 06/20/19 18:03 Neut # (Auto) 6.26 K/uL (1.4-6.5) 06/20/19 18:03 Lymph # (Auto) 0.49 K/uL (1.2-3.4) L 06/20/19 18:03 Mccone # (Auto) 1.40 K/uL (0.11-0.59) H 06/20/19 18:03 Eos # (Auto) 0.11 K/uL (0-0.5) 06/20/19 18:03 Baso # (Auto) 0.02 K/uL (0-0.2) 06/20/19 18:03 PT 12.3 Seconds (9.0-12.0) H 06/20/19 18:03 INR 1.2 (0.9-1.1) H 06/20/19 18:03 APTT 25.1 Seconds (21.0-31.0) 06/20/19 18:03 PTT Ratio 0.9 06/20/19 18:03 Sodium 137 mmol/L (136-145) 06/20/19 18:03 Potassium 3.8 mmol/L (3.5-5.1) 06/20/19 18:03 Chloride 105 mmol/L (98-107) 06/20/19 18:03 Carbon Dioxide 25 mmol/L (21-32) 06/20/19 18:03 Anion Gap 7.0 (3-11) 06/20/19 18:03 BUN 34 mg/dl (7-18) H 06/20/19 18:03 Creatinine 1.71 mg/dl (0.6-1.2) H 06/20/19 18:03 Est Cr Clr Drug Dosing 24.5 ml/min 06/20/19 18:03 Est GFR ( Amer) 31.1 06/20/19 18:03 Est GFR (Non-Af Amer) 26.8 06/20/19 18:03 BUN/Creatinine Ratio 20.1 (10-20) H 06/20/19 18:03 Glucose 119 mg/dl (70-99) H 06/20/19 18:03 Lactate 1.2 mmol/L (0.4-2.0) 06/20/19 19:16 Calcium 8.5 mg/dl (8.5-10.1) 06/20/19 18:03 Phosphorus 3.5 mg/dl (2.5-4.9) 06/20/19 18:03 Magnesium 2.4 mg/dl (1.8-2.4) 06/20/19 18:03 Total Bilirubin 0.6 mg/dl (0.2-1) 06/20/19 18:03 AST 31 U/L (15-37) 06/20/19 18:03 ALT 42 U/L (12-78) 06/20/19 18:03 Alkaline Phosphatase 98 U/L (45-117) 06/20/19 18:03 Troponin I < 0.015 ng/ml (0-0.045) 06/20/19 18:03 NT-Pro-B Natriuret Pep 8417 pg/ml (0-1800) H 06/20/19 18:03 Total Protein 6.9 gm/dl (6.4-8.2) 06/20/19 18:03 Albumin 3.3 gm/dl (3.4-5.0) L 06/20/19 18:03 Globulin 3.6 gm/dl (2.5-4.0) 06/20/19 18:03 Albumin/Globulin Ratio 0.9 (0.9-2) 06/20/19 18:03 Urine Color Yellow 06/20/19 22:00 Urine Appearance Slightly Cloudy (Clear) 06/20/19 22:00 Urine pH 6.0 (4.5-7.5) 06/20/19 22:00 Ur Specific [place] 1.020 (1.000-1.030) 06/20/19 22:00 Urine Protein 1+ (Negative) H 06/20/19 22:00 Urine Glucose (UA) Negative (Negative) 06/20/19 22:00 Urine Ketones Negative (Negative) 06/20/19 22:00 Urine Blood Negative (Negative) 06/20/19 22:00 Urine Nitrite Negative (Negative) 06/20/19 22:00 Urine Bilirubin Negative (Negative) 06/20/19 22:00 Urine Urobilinogen Negative (Negative) 06/20/19 22:00 Ur Leukocyte Esterase Trace (Negative) H 06/20/19 22:00 Urine RBC 0-4 /hpf (0-4) 06/20/19 22:00 Urine WBC 5-10 /hpf (0-5) H 06/20/19 22:00 Ur Epithelial Cells 5-10 /lpf (0-5) H 06/20/19 22:00 Urine Bacteria 1+ (Negative) H 06/20/19 22:00 Influenza Type A (PCR) Neg for Influ A (Neg) 06/20/19 19:03 Influenza Type B (PCR) Neg for Influ B (Neg) 06/20/19 19:03 Diagnostic Findings [place], [place] [phone] XRay Report Patient: JERRY LI DAdmit Date: 06/20/19 MR#: [id number]: [id number] Acct ID:[id number]: [facility] Zip: [place] [address] Age: 83Location: ED Sex: F Room/Bed: Att Phy:Diagnosis: FLU SX, EDEMA TO LEGS, & COLOSTOMY BLEEDING Tessa Phy: Patti James MDService Date: 06/20/19 Fam Phy: Darío Milligan, DOInterpreting Phy: Max Alatorre MD Admit Phy: Ordering Phy: Bhavin Desai M.D. cc: ~ XR chest 1V portable CLINICAL HISTORY: SEPSIS dyspnea COMPARISON STUDY: 02/08/2019 FINDINGS: Moderate stable cardiomegaly. Lungs are clear. Diaphragms are smooth. Permanent bipolar cardiac pacemaker. IMPRESSION: Moderate stable cardiomegaly. Otherwise negative study. ACT 112: Negative or not required by law. The above report was generated using voice recognition software. It may contain grammatical, syntax or spelling errors. Electronically signed by: Max Alatorre M.D. 06/20/2019 6:44 PM Dictated: 06/20/191842 Transcribed: 06/20/19 184 Code Status & VTE Plan Code Status Full code VTE Prophylaxis Plan VTE Prophylaxis will be ordered: Yes PG Care Time/CCT Total # of Minutes Spent Total Time Spent with Patient: Total time spent is greater than 50% in coordination of care (as documented) at patient's floor/unit and/or counseling patient: Coding Level of Care Code 52630 Initial Inpt Care Lvl 3 Diagnoses Bronchitis J40 Weakness R53.1 CKD (chronic kidney disease) N18.9 Atrial fibrillation I48.91 Pacemaker Z95.0 Ambulatory dysfunction R26.2 Depression F32.9
[2019-06-21] MEDS ORDERED: BUDESONIDE 0.5 MG/2 ML VIAL (PULMICORT) NEB SCH (07:00)
[2019-06-21] MEDS: PANTOprazole 40 MG TAB PO SCH (08:37)
[2019-06-21] MEDS: CEROVITE ADV FORMULA TAB PO SCH ×2 (08:37→21:37)
[2019-06-21] MEDS: EZETIMIBE 10 MG TABLET PO SCH (08:37)
[2019-06-21] MEDS: allopurinoL 100 MG TAB PO SCH (08:37)
[2019-06-21] MEDS ORDERED: NON-FORMULARY MEDICATION (Multivit-Min-Iron-Fa-Lutein [Centrum Silver Women] 1 TAB) PO SCH (09:00)
[2019-06-21 11:06] LABS: BUN Creatinine Ratio 21.1 (10-20); Calcium 8.5 mg/dl (8.5-10.1); Creatinine Clr Calc Pharmacy 22.2 ml/min; Est GFR (African American) 27.7; Est GFR (Non-African American) 23.9; Potassium 3.8 mmol/L (3.5-5.1)
--- NOTE | 2019-06-21 15:51 | Electrocardiogram Report ---
Test Reason : Blood Pressure : / mmHG Vent. Rate : 117 BPM Atrial Rate : 110 BPM P-R Int : 000 ms QRS Dur : 122 ms QT Int : 358 ms P-R-T Axes : 000 -64 094 degrees QTc Int : 499 ms Atrial fibrillation with rapid ventricular response with premature ventricular or aberrantly conducte d complexes Left axis deviation Right bundle branch block Voltage criteria for left ventricular hypertrophy Inferior infarct (cited on or before 18-SEP-2017) T wave abnormality, consider lateral ischemia Abnormal ECG When compared with ECG of 18-SEP-2017 10:34, Atrial fibrillation has replaced Sinus rhythm Vent. rate has increased BY 45 BPM T wave inversion more evident in Anterior leads Confirmed by Cesar Coelho ([id number]) on 06/21/2019 3:50:56 PM Referred By: REFERRED SELF Confirmed By:Cesar Coelho
[2019-06-21] MEDS ORDERED: ALBUT/IPRATROP 3MG/0.5MG NEB 3 ML VIAL NEB ONE (16:20)
[2019-06-21] MEDS ORDERED: FUROSEMIDE 20 MG in SYRINGE 0 ML IV STA (16:34)
--- NOTE | 2019-06-21 17:53 | Communication Note ---
Date of Service: June 21, 2019 Patient was seen and examined. Admitted same day therefore I will not be billing for this encounter. Leg swelling and increasing shortness of breath for 2 weeks. 1 week of bronchitis symptoms without fevers or chills. Procalcitonin negative. Worsening renal function today after negative balance and 20mg IV lasix given in ER. Non smoker, no history of asthma/COPD, never needed inhaler at home O/E JVD up to ear lobe. 3+ edema up to abdomen, no wheezing on lung auscultation but bibasal crackles present. A&P Suspect CHF (unknown EF) rather than bronchitis primarily driving her shortness of breath and general deterioration. Will consult Dr Milligan her highway patrol officer. Will continue lasix IV and monitor response. Possible Cr increase from IV fluids and antibiotics given. I&Os, daily weights. TTE. B/l lower extremity edema - unclear cause of worsening HF, suspect secondary to above but given significant right and not left sided heart failure will get US doppler to r/o DVT PNA - ruled out, stop antibiotics Bronchitis - unclear on admission presentation but suspect this is from pulmonary edema rather than underlying lung disease, will reduce steroids to a short steroid burst.
[2019-06-21] MEDS ORDERED: METOPROLOL TARTRATE 1 MG/ML VIAL IV PRN (18:01)
[2019-06-21] MEDS ORDERED: FUROSEMIDE 20 MG in SYRINGE 0 ML IV ONE (18:30)
--- NOTE | 2019-06-21 21:30 | Ultrasound Report ---
BILATERAL LOWER EXTREMITY VENOUS DOPPLER HISTORY: b/l leg pain and extremity swelling ?DVT COMPARISON STUDY: None. FINDINGS: There is normal compressibility, flow, and augmentation within the bilateral lower extremit y deep venous systems. IMPRESSION: No DVT within the right or left lower extremity. ACT 112: Negative or not required by law. Electronically signed by: Klaus Moreno M.D. 06/21/2019 9:29 PM
[2019-06-21] MEDS: SERTRALINE HCL 50 MG TABLET PO SCH (21:36)
[2019-06-21] MEDS: LORazepam 0.5 MG TAB PO SCH (21:36)
[2019-06-22] MEDS: allopurinoL 100 MG TAB PO SCH (08:06)
[2019-06-22] MEDS: predniSONE 20 MG TAB PO SCH (08:06)
[2019-06-22] MEDS: DRONEDARONE HCL 400 MG TAB PO SCH (08:07)
[2019-06-22] MEDS: EZETIMIBE 10 MG TABLET PO SCH (08:07)
[2019-06-22] MEDS: CEROVITE ADV FORMULA TAB PO SCH ×2 (08:07→21:14)
[2019-06-22] MEDS: PANTOprazole 40 MG TAB PO SCH (08:07)
[2019-06-22] MEDS: METOPROLOL TARTRATE 25 MG TAB PO SCH ×4 (08:07→21:14)
[2019-06-22] MEDS ORDERED: FUROSEMIDE 40 MG in SYRINGE 0 ML IV SCH (09:00)
--- NOTE | 2019-06-22 09:44 | Cardiology Consultation ---
Date of Consultation Mishel is admitted with progressive shortness of breath and dyspnea on exertion. She also notes progressive fatigue and worsening lower extremity edema. She also have a cough with yellowish-green sputum. She denies any fevers or chills or sweats. Her appetite's been stable she has not been weighing herself. She is been taking her diuretics intermittently due to her concern over her kidney disease. She has any chest tightness or chest pressure. She had a hard time getting into bed given the swelling in her legs she is propping herself up. She eats TV dinners on a regular basis as it is easy for her to put a meal together this way. She notes going to the grocery store causes her to be significantly short of breath. She has any lightheadedness dizziness presyncope or syncope. She has had a very good diuresis with IV Lasix. She is tearful and she notes there is some friction between her children. She does have somebody at home who helps clean for her every 2 weeks but otherwise she is basically on her own. The rest of a complete review of systems otherwise negative June 22, 2019 History of Present Illness Attending Physician: Adalid Lambert MD Allergies Allergy/AdvReac Type Severity Reaction Status Date / Time Iodinated Contrast Media Allergy Severe Difficulty Verified 06/20/19 20:50 Breathing, Severe Hives Sulfa (Sulfonamide Allergy Mild . Verified 06/20/19 20:50 Antibiotics) cephalexin Allergy Unknown Unknown Verified 06/20/19 20:50 diphenhydramine Allergy Unknown DOES NOT Verified 06/20/19 20:50 REMEMBER potassium chloride Allergy Unknown unknown Verified 06/20/19 20:50 MUSHROOMS Allergy Unknown . Uncoded 06/20/19 20:50 Home Medications Home Medications Medication Instructions Recorded Confirmed Type allopurinol 100 mg PO QAM 06/20/19 06/20/19 History artificial tears(hypromellose) 1 drp OPHTHALMIC (EYE) QID PRN 06/20/19 06/20/19 History dronedarone [Multaq] 400 mg PO BID 06/20/19 06/20/19 History ezetimibe 10 mg PO QAM 06/20/19 06/20/19 History furosemide 20 mg PO DAILY PRN 06/20/19 06/20/19 History lorazepam 0.5 mg PO HS 06/20/19 06/20/19 History meclizine 12.5 mg PO Q6H PRN 06/20/19 06/20/19 History metoprolol tartrate 25 mg PO BID 06/20/19 06/20/19 History iqchpoxt-msa-zkkc-FA-lutein 1 tab PO QAM 06/20/19 06/20/19 History [Centrum Silver Women] nitroglycerin [Nitrostat] 0.4 mg SUBLINGUAL DIRECTED PRN 06/20/19 06/20/19 History omeprazole 20 mg PO QAM 06/20/19 06/20/19 History sertraline 25 mg PO HS 06/20/19 06/20/19 History vit C,J-Yy-rqrpg-lutein-zeaxan 1 tab PO BID 06/20/19 06/20/19 History [PreserVision AREDS-2] Patient History Medical History Abnormal stress test Ambulatory dysfunction (Acute) Atrial fibrillation (Acute 04/24/13) Chest pain Contusion of left hip (Acute) Degenerative arthritis of knee (Acute 03/16/14) Depression Dizziness (Acute) DJD (degenerative joint disease) (Acute) GI bleed (Acute) Gouty arthritis (Acute) Head trauma (Acute) Headache (Acute) Hemarthrosis (Acute) Hip hematoma, left (Acute) Left knee DJD (Acute) Left knee pain (Acute) Osteoarthritis (Acute) Pacemaker (Resolved) Rib fracture (Acute) Right rib fracture (Acute) Scalp hematoma (Acute) UTI (urinary tract infection) (Acute) Weakness (Acute) Social History Preferred Language: Micronesian Communication Ability: Effective Special Effects Technician Required: No Beliefs That Will Affect Care: None Current Living Situation: Alone Feels Safe at Home: Yes Smoking Status: Never smoker Hx Alcohol Use: No Hx Substance Use: No Results & Data ([facility]) Vital Signs (Past 12 Hours) Vital Signs Temp Pulse Pulse Resp BP BP Pulse Ox 06/22/19 09:07 92 H 06/22/19 08:00 37.1 C 106 H 18 129/69 95 06/22/19 04:00 37.1 C 92 H 122/73 95 06/22/19 00:00 37.0 C 114 H 109 H 20 120/78 95 She is awake alert and oriented x3 she did appear short of breath talking in sentences. HEENT mildly reduced carotid upstrokes (tachycardic) there were no carotid bruits appreciated her sclera was anicteric her hearing is mildly diminished Lungs: Decreased breath sounds in the bases bilaterally she had expiratory rhonchi Heart: Irregular rate and rhythm (tachycardic) no appreciable murmurs Abdomen: Soft nontender distended positive bowel sounds Extremities moderate pitting edema to the knee bilaterally Psychiatric she was tearful at times Impressions: 1. Acute on chronic diastolic heart failure 2. Chronic kidney disease with a baseline creatinine of 1.7 3. Paroxysmal atrial fibrillation and atrial flutter 4. Dual-chamber pacemaker secondary to Syncope 5. Stress test in 2018 with moderate inferior wall ischemia and preserved left ventricular systolic function with an EF in the range of 64% I would stop her Multitak given her progressive diastolic heart failure as this cannot be used in patients with heart failure. She seems asymptomatic with regards to her atrial fibrillation she is unaware of any palpitations or fluttering even with heart rates as high as the 1 teens and 120s. I would increase her metoprolol to 25 mg every 6 hours. Hopefully this will allow us to slow her heart rate down without lowering her blood pressure. Her blood pressure today is acceptable. She is had a very good diuresis she was -2 L yesterday. She received IV diuretics this morning. I will check a BMP in the morning and then make an assessment as to her diuretic needs. She is always had larger lower extremities that were not necessarily edematous. She is not on anticoagulation due to the fact that she had a hemarthrosis in the past. And at this point she remains off anticoagulation. Case management should be consulted the question remains can she live at home by herself. Does she have the financial resources to have help come in that allows her to remain independent. And how much can her daughter who lives locally help her.
--- NOTE | 2019-06-22 11:32 | XCELERA ---
[id number] \\[id number]
--- NOTE | 2019-06-22 17:58 | Electrocardiogram Report ---
Test Reason : Blood Pressure : / mmHG Vent. Rate : 101 BPM Atrial Rate : 000 BPM P-R Int : 000 ms QRS Dur : 124 ms QT Int : 392 ms P-R-T Axes : 000 -62 -39 degrees QTc Int : 508 ms Atrial fibrillation with rapid ventricular response Left axis deviation Right bundle branch block Minimal voltage criteria for LVH, may be normal variant Inferior infarct (cited on or before 18-SEP-2017) T wave abnormality, consider lateral ischemia Abnormal ECG When compared with ECG of 20-JUN-2019 17:56, Premature ventricular complexes are no longer Present Confirmed by Efrain Díaz ([id number]) on 06/22/2019 5:57:41 PM Referred By: REFERRED SELF Confirmed By:Efrain Díaz
--- NOTE | 2019-06-22 19:29 | Hospitalist Progress Note ---
Date of Service June 22, 2019 Assessment & Plan (1) Acute on chronic systolic (congestive) heart failure: Mainly right sided heart failure. Unclear why this is worse than normal as no know lung disease, ?due to a. fib with mildly elevated HR. TTE with normal estimated ventricular systolic pressure but severe tricuspid regurg and global hypokinesis suggests this is a primary heart failure issue rather than lung pathology Diuresis so far has just lead to increasing creatinine therefore suspect limited efficacy with ongoing diuretics. Had IV lasix 40mg IV before it was discontinued this morning therefore suspect Cr to rise again tomorrow. Trend BNP Will avoid ACEi/ARB in setting of CKD stage IV. Appreciate cardiology consult. Anti-arrhythmic therapy stopped and now with rate controlling strategy. I am unsure how much time she spends in a. fib and perhaps her rates in the 90s-100s is too fast for her and lead her into this heart failure. (2) Bilateral leg edema: US doppler negative. Unclear baseline, but patient reports large difference over the last 2 weeks. Patient to trial OSMANY hose. Will also consult orthotics to fit with lower extremity stockings as TEDs unlikely to fit properly. Suspect venous insufficiency in setting of right heart failure (3) Bronchitis: Suspect mainly from pulmonary edema. Yellow sputum may suggest underlying viral process. Procalcitonin negative 3/4. Will continue short course of steroid burst although unclear if this is truly helping given lack of effectiveness of duoneb Lungs clear to auscultation. (4) Weakness: Generalized weakness/ambulatory dysfunction- Patient reportedly is living by herself. PT/OT, caser shoe parts for discharge planning. (5) Atrial fibrillation: Atrial fibrillation/pacemaker/hypertension Stop dronedarone as per Dr Milligan Increased metoprolol tartrate for better rate control. (6) Pacemaker: Noted placed for a. fib (7) Ambulatory dysfunction: Continue PT/OT (8) Depression: Continue sertraline 25 mg at bedtime. Patient is showing some signs of worsening depression, and may need to have medications adjusted. Again as noted above living by herself may be getting to be too much for her. (9) Chronic kidney disease, stage IV (severe): Baseline in March Cr 1.59. Increased to 1.88 with IV lasix given. Additional dose given today and will monitor for pre-renal LOBITO. Mildly increasing BUn with Cr would suggest pre-renal with lasix use. (10) DVT prophylaxis: SCDs Not on anticoagulation due to hemarthrosis previously. Patient also reports many falls with her legs giving way. Admission and Anticipated Discharge Date Admission Date: June 21, 2019 Subjective Patient reports no real difference in her shortness of breath, cough or leg swelling. She reports a wish to get out of hospital but also notes she isn't much better than when she initially came in. Review of Systems Review of Systems: All systems reviewed & are unremarkable except as noted in HPI & below Physical Exam Constitutional: well developed; no acute distress Eyes: + anicteric sclerae; normal pupil size ENMT: external ear and nose normal, oropharynx normal Neck: trachea midline, no thyromegaly Respiratory: normal respiratory effort, lungs clear to auscultation Cardiovascular: Rate/Rhythm: + tachycardic and + irregularly irregular Heart Sounds: no murmur Vessels: + JVD (up to ear lobe) Extremities: normal capillary refill, + calf tenderness (b/l equal) and + pedal edema (3+ to knees) Gastrointestinal (Abdomen): normal bowel sounds, soft, nontender, no hepatosplenomegaly Musculoskeletal: no cyanosis or clubbing, extremities motor strength 5/5 Skin: no rashes, warm and dry (no cellulitis) Neurologic: moves all extremities and awake; no focal motor deficits and not confused Speech / Cognition: normal speech Motor/Sensory: no tremor and no pronator drift Psychiatric: A+Ox3, euthymic affect Results & Data ([facility]) Vital Signs (Past 12 Hours) Vital Signs Temp Pulse Pulse Pulse Resp BP Pulse Ox 06/22/19 16:01 94 H 06/22/19 15:30 37.0 C 97 H 19 107/74 95 06/22/19 12:00 36.7 C 99 H 18 122/77 93 06/22/19 09:07 92 H 06/22/19 08:00 37.1 C 106 H 18 129/69 95 PG Care Time/CCT Total # of Minutes Spent Total Time Spent with Patient: Total time spent is greater than 50% in coordination of care (as documented) at patient's floor/unit and/or counseling patient: Coding Level of Care Code 49708 Subseq Hosp Care Lvl 3 Diagnoses Acute on chronic systolic (congestive) heart failure I50.23 Bilateral leg edema R60.0 Bronchitis J40 Weakness R53.1 Atrial fibrillation I48.91 Atrial fibrillation type: unspecified Pacemaker Z95.0 Ambulatory dysfunction R26.2 Depression F32.9 Depression Type: unspecified Chronic kidney disease, stage IV (severe) N18.4 DVT prophylaxis Z29.9 (1) Atrial fibrillation Atrial fibrillation type: unspecified Qualified Code(s): I48.91 - Unspecified atrial fibrillation (2) Depression Depression Type: unspecified Qualified Code(s): F32.9 - Major depressive disorder, single episode, unspecified
[2019-06-22] MEDS: LORazepam 0.5 MG TAB PO SCH (21:14)
[2019-06-22] MEDS: SERTRALINE HCL 50 MG TABLET PO SCH (21:14)
[2019-06-23 06:25] LABS: BUN Creatinine Ratio 29.3 (10-20); Calcium 8.4 mg/dl (8.5-10.1); Creatinine Clr Calc Pharmacy 18.2 ml/min; Est GFR (African American) 22.8; Est GFR (Non-African American) 19.7; Potassium 3.5 mmol/L (3.5-5.1)
[2019-06-23] MEDS: PANTOprazole 40 MG TAB PO SCH (07:40)
[2019-06-23] MEDS: EZETIMIBE 10 MG TABLET PO SCH (07:40)
[2019-06-23] MEDS: allopurinoL 100 MG TAB PO SCH (07:41)
[2019-06-23] MEDS: CEROVITE ADV FORMULA TAB PO SCH ×2 (07:41→21:54)
[2019-06-23] MEDS: predniSONE 20 MG TAB PO SCH (07:41)
[2019-06-23] MEDS: METOPROLOL TARTRATE 25 MG TAB PO SCH (07:42)
[2019-06-23] MEDS ORDERED: LACTATED RINGER'S 1,000 ML IV SCH (08:30)
--- NOTE | 2019-06-23 09:15 | Cardiology Progress Note ---
Date of Service June 23, 2019 Subjective She still has a productive cough which is yellow. She notes the cough really is not much better since she came to the hospital. Her weight is down approximately 6 kg. Her legs still feel heavy and swollen to her. Her appetite is stable she denies any palpitations or fluttering even though her rates while in atrial fibrillation remain fast. She has any dizziness getting up out of a chair and moving to the bedside commode. She does note that she needs help as she feels like her legs are just heavy and she has a hard time walking. She is not short of breath talking in sentences this morning like she was yesterday. She looks more comfortable. She is less tearful today. Results & Data Vital Signs (Past 12 Hours) Vital Signs Temp Pulse Resp BP BP Pulse Ox 06/23/19 07:36 36.8 C 98 H 19 125/74 95 06/23/19 04:00 36.5 C 104 H 20 129/83 95 06/22/19 23:46 36.5 C 109 H 20 122/81 96 She is awake alert and oriented x3 she did appear short of breath talking in sen tences. HEENT mildly reduced carotid upstrokes (tachycardic) there were no carotid bruits appreciated her sclera was anicteric her hearing is mildly diminished Lungs: Decreased breath sounds in the bases bilaterally she had expiratory rhonchi Heart: Irregular rate and rhythm (tachycardic) no appreciable murmurs Abdomen: Soft nontender distended positive bowel sounds Extremities moderate pitting edema to the knee bilaterally Psychiatric she was tearful at times Impressions: 1. Acute on chronic diastolic heart failure 2. Acute on chronic kidney disease with a baseline creatinine of 1.7 3. Paroxysmal atrial fibrillation and atrial flutter 4. Dual-chamber pacemaker secondary to Syncope 5. Stress test in 2018 with moderate inferior wall ischemia and preserved left ventricular systolic function with an EF in the range of 64% 6. Echocardiogram this admission with a dilated right ventricle with moderate RV dysfunction and severe tricuspid regurgitation with normal pulmonary artery pressures; 7. Mild left ventricular dysfunction with moderate left ventricular hypertrophy and ejection fraction range of 45% with global hypokinesis Her creatinine is risen to 2.2 this morning. I would hold off in any additional diuretics and allow her to equilibrate on her own. Her heart rate remains fast. My hope is by slowing her down further we can increase her stroke-volume and her diastolic filling and actually improve her renal perfusion. the difficulty is with her dilated right ventricle and moderate RV dysfunction she will be very preload dependent. We will increase her metoprolol to 50 mg 3 times daily. She should remain off Multitak. She is not on anticoagulation due to her previous bleed. I will add Tessalon Perles to see if this helps her cough. I would reassess her creatinine tomorrow to determine whether we can give her additional diuretics. I did discuss its a balancing act between drying her out but not making her excessively prerenal. I remain concerned that she may not be able to go home as she is going to have difficulty caring for herself in light of the fact that it is hard for her to walk and her legs feel heavy. If there are any questions over the weekend [facility] is available to assist in her care.
--- NOTE | 2019-06-23 10:19 | XRay Report ---
XR chest 2V PA/lateral CLINICAL HISTORY: 83 years-old Female presenting with shortness of breath. TECHNIQUE: PA and lateral views of the chest were obtained. COMPARISON: 06/20/[address] of abdomen and pelvis from 02/08/2019. FINDINGS: Left subclavian pacer with leads to the right atrium and right ventricular apex. Atherosclerosis of t he aortic arch. Cardiac silhouette moderately enlarged. Diffusely coarsened lung markings. Few calcif ied granulomata may be present at the left lung base. Suspected eventration of the left hemidiaphragm . No new focal opacity. Lungs are mildly hyperinflated resulting in blunted costophrenic sulci. No si gnificant pleural effusion or pneumothorax. Advanced degenerative changes of the right glenohumeral j oint. Suspected underlying osteopenia. Upper abdomen normal. IMPRESSION: 1. Cardiomegaly without evidence of volume overload or congestive change. 2. No focal infiltrate. 3. Possible underlying emphysema. ACT 112: Negative or not required by law. Results electronically sent 06/23/2019 10:18 AM to: Adalid Lambert MD Electronically signed by: Berhane Irwin M.D. 06/23/2019 10:18 AM
[2019-06-23] MEDS: BENZONATATE 100 MG CAPSULE PO SCH ×3 (11:14→21:54)
[2019-06-23] MEDS: HEPARIN SOD 5,000 UNIT/0.5 ML VIAL SQ SCH ×2 (11:21→21:55)
[2019-06-23] MEDS: METOPROLOL TARTRATE 50 MG TAB PO SCH ×2 (14:35→21:54)
--- NOTE | 2019-06-23 15:52 | Electrocardiogram Report ---
Test Reason : Blood Pressure : / mmHG Vent. Rate : 096 BPM Atrial Rate : 000 BPM P-R Int : 000 ms QRS Dur : 130 ms QT Int : 348 ms P-R-T Axes : 000 -66 145 degrees QTc Int : 439 ms Atrial fibrillation with premature ventricular or aberrantly conducted complexes Right bundle branch block Left anterior fascicular block Bifascicular block Minimal voltage criteria for LVH, may be normal variant ( R in aVL ) T wave abnormality, consider lateral ischemia Abnormal ECG When compared with ECG of 22-JUN-2019 06:30, T wave inversion more evident in Lateral leads QT has shortened Confirmed by Cesar Coelho ([id number]) on 06/23/2019 3:52:14 PM Referred By: REFERRED SELF Confirmed By:Cesar Coelho
[2019-06-23] MEDS: guaiFENesin 600 MG TABCR PO SCH (21:53)
[2019-06-23] MEDS: SERTRALINE HCL 50 MG TABLET PO SCH (21:54)
[2019-06-23] MEDS: LORazepam 0.5 MG TAB PO SCH (21:54)
--- NOTE | 2019-06-23 23:49 | Hospitalist Progress Note ---
Date of Service June 23, 2019 Assessment & Plan (1) Acute on chronic systolic (congestive) heart failure: Mainly right sided heart failure. TTE with normal estimated ventricular systolic pressure but severe tricuspid regurg and global hypokinesis suggests this is a primary heart failure issue rather than lung pathology. Diuresis so far has just lead to increasing creatinine therefore suspect limited efficacy with ongoing diuretics. Given IV fluids slow initially due to rise in Cr. Trend BNP Will avoid ACEi/ARB in setting of CKD stage IV. Appreciate cardiology consult. Anti-arrhythmic therapy stopped and now with rate controlling strategy with increasing metoprolol dosing therefore will continue to increase as able throughout the weekend. (2) Atrial fibrillation with RVR: Suspect this is the main courtesy driver of heart failure and possible she spends most of her time in NSR prior to being in this for the last 2 weeks. Stop dronedarone as per Dr Milligan Increased metoprolol tartrate for better rate control. Not on anticoagulation secondary to hemarthrosis. (3) Bilateral leg edema: US doppler negative. Unclear baseline, but patient reports large difference over the last 2 weeks. Usually large but not edematous legs as per Dr Milligan's note. Appreciate compression stocking from orthotics which hopefully will help with some of the leg edema given lasix largely unsuccessful. Suspect secondary to venous insufficiency in setting of right heart failure (4) Bronchitis: Suspect mainly from pulmonary edema. Yellow sputum may suggest underlying viral process. Procalcitonin negative 3/4. Will continue with last prednisone dose today. Lungs clear to auscultation. Repeat CXR today clear. (5) Weakness: Generalized weakness/ambulatory dysfunction. Patient living by herself. PT/OT, manager rn case for discharge planning. ?[facility] once medically stable. 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 (9) Chronic kidney disease, stage IV (severe): Baseline in March Cr 1.59. Increased to 2.21 with IV lasix. Now d/c lasix and initially given slow IV fluids but stopped based on Dr Milligan's note (only had approx 370ml) Repeat BMP daily. (10) DVT prophylaxis: SCDs Discussed with patient and will start heparin for VTE prophylaxis, not full anticogulation. Admission and Anticipated Discharge Date Admission Date: June 21, 2019 Subjective No real change. She still feels generally fatigued in atrial fibrillation with RVR. Tolerating compression stockings but she doesn't feel she can wear these at home. Ongoing yellow sputum cough which has not changed with steroids or duonebs. No chest pain or dizziness. No orthopnea or PND. Her main concern is her leg edema. I am not clear she is fully understanding the cause as she asks me the same questions as yesterday. Review of Systems Review of Systems: All systems reviewed & are unremarkable except as noted in HPI & below Physical Exam Constitutional: well developed; no acute distress Eyes: + anicteric sclerae; normal pupil size ENMT: external ear and nose normal, oropharynx normal Neck: trachea midline, no thyromegaly Respiratory: normal respiratory effort, lungs clear to auscultation Cardiovascular: Rate/Rhythm: + tachycardic and + irregularly irregular Heart Sounds: no murmur Vessels: + JVD (up to ear lobe) Extremities: normal capillary refill, + calf tenderness (b/l equal) and + pedal edema (3+ to knees) Gastrointestinal (Abdomen): normal bowel sounds, soft, nontender, no hepatosplenomegaly Musculoskeletal: no cyanosis or clubbing, extremities motor strength 5/5 Skin: no rashes, warm and dry (no cellulitis) Neurologic: moves all extremities and awake; no focal motor deficits and not confused Speech / Cognition: normal speech Psychiatric: A+Ox3, euthymic affect Results & Data ([facility]) Vital Signs (Past 12 Hours) Vital Signs Temp Pulse Resp BP BP Pulse Ox 06/23/19 19:50 36.8 C 112 H 21 137/88 94 06/23/19 15:59 36.7 C 104 H 16 132/86 94 PG Care Time/CCT Total # of Minutes Spent Total Time Spent with Patient: Total time spent is greater than 50% in coordination of care (as documented) at patient's floor/unit and/or counseling patient: Coding Level of Care Code 05397 Subseq Hosp Care Lvl 3 Diagnoses Acute on chronic systolic (congestive) heart failure I50.23 Atrial fibrillation with RVR I48.91 Bilateral leg edema R60.0 Bronchitis J40 Weakness R53.1 Pacemaker Z95.0 Ambulatory dysfunction R26.2 Depression F32.9 Depression Type: unspecified Chronic kidney disease, stage IV (severe) N18.4 DVT prophylaxis Z29.9 (1) Depression Depression Type: unspecified Qualified Code(s): F32.9 - Major depressive disorder, single episode, unspecified
[2019-06-24 07:12] LABS: BUN Creatinine Ratio 35.7 (10-20); Calcium 8.1 mg/dl (8.5-10.1); Creatinine Clr Calc Pharmacy 22.9 ml/min; Est GFR (Non-African American) 25.9; Potassium 3.7 mmol/L (3.5-5.1)
[2019-06-24] MEDS: METOPROLOL TARTRATE 50 MG TAB PO SCH (08:10)
[2019-06-24] MEDS: CEROVITE ADV FORMULA TAB PO SCH ×2 (08:10→20:37)
[2019-06-24] MEDS: BENZONATATE 100 MG CAPSULE PO SCH ×3 (08:11→20:38)
[2019-06-24] MEDS: guaiFENesin 600 MG TABCR PO SCH ×2 (08:11→20:39)
[2019-06-24] MEDS: allopurinoL 100 MG TAB PO SCH (08:11)
[2019-06-24] MEDS: EZETIMIBE 10 MG TABLET PO SCH (08:12)
[2019-06-24] MEDS: PANTOprazole 40 MG TAB PO SCH (08:12)
[2019-06-24] MEDS: HEPARIN SOD 5,000 UNIT/0.5 ML VIAL SQ SCH ×2 (08:12→20:39)
--- NOTE | 2019-06-24 09:32 | Cardiology Progress Note ---
Date of Service June 24, 2019 Assessment & Plan (1) Atrial fibrillation: She presents in atrial fibrillation, her atrial fibrillation is paroxysmal. She has had increasing frequency of atrial fibrillation over the last 3 months, and has been in it steadily for about 2 weeks which coincides very closely with her symptoms. Sometimes atrial fibrillation is very poorly tolerated hemodynamically, especially in people with left ventricular dysfunction and therefore this likely contributed to her presentation. Unfortunately she is not anticoagulated and therefore cardioversion is not a good option, although consideration could be given to transesophageal echocardiography followed by anticoagulation despite her potential risk, versus starting anticoagulation and waiting a month and performing cardioversion. That is certainly not something I would do this weekend. Rate control is a little bit of an issue, but not much, as her rate is not terribly abnormal, averaging about 100 on telemetry here (which I believe is on increased beta-blockade) and a little over 100 prior to presentation. I think we should adjust her rate control and I am going to increase her beta-william to metoprolol 100 mg twice a day. I am going to continue the short acting preparation, but if she tolerates that she should be converted to metoprolol succinate for her left ventricular dysfunction. Digoxin would be my next choice on top of the beta-blockade. (2) Acute on chronic systolic (congestive) heart failure: She has a long history of heart failure, she has some degree of left ventricular dysfunction as well as right ventricular dysfunction and she also has renal insufficiency which may in part be due to decreased cardiac performance including her atrial irregularity. Returning her to sinus rhythm may help control her heart failure but that does not seem to be an option at the moment based on my note above. Rate control is probably the best option, although I am not sure will make much difference since her rate is not terribly fast. Her creatinine is increased slightly but I would go ahead and diuresis to the point where her creatinine clearly rises, there is some fluctuation but I do not see a clear rise recently and she has longstanding renal insufficiency. (3) Pacemaker: She has a pacemaker, it is a Medtronic Versa model [id number] and is working well but does not need to pace in her current rhythm and even before atrial fibrillation and was not pacing much. This appears appropriate. Battery longevity is excellent at 5.5 years. Admission and Anticipated Discharge Date Admission Date: June 21, 2019 Subjective I was asked to see patient because of ongoing difficulty with shortness of breath and edema possibly related to atrial fibrillation. She is a poor historian. Based on records it appears that she has paroxysmal atrial fibrillation but is not on an anticoagulant reportedly due to hemarthrosis. Not sure when that was. She does not recognize the names of the anticoagulants other than possibly Xarelto and actually thought she was on one. She presents with worsening shortness of breath as well as edema. She is generally unaware of whether she is in atrial fibrillation or not. She has a pacemaker, she does not know what kind it is and does not recognize any of the brands, however we did call [employer] and she does have a Medtronic device. Interrogation of her pacemaker may help determine the onset of the atrial fibrillation to see whether the arrhythmia times to the onset of her symptoms. Physical Exam Physical Exam: Constitutional: Alert, cooperative and in no distress. HEENT: Unremarkable Neck: No jugular venous distention, carotid pulses are irregular but otherwise normal and equal bilaterally without bruits. Pulmonary: Rhonchi on auscultation bilaterally. Cardiac: Irregular rhythm with no murmur, gallop or rub. Abdomen: Soft, nontender with normal bowel sounds. Extremities: Her legs are large, she does have at least +1 or +2 edema. Distal pulses intact. Neurologic: No focal findings. Gait was not tested. Skin: No rash, ecchymoses or petechiae. Results & Data ([facility]) Vital Signs (Past 12 Hours) Vital Signs Temp Pulse Pulse Resp BP Pulse Ox 06/24/19 07:56 36.8 C 98 H 22 132/88 94 06/24/19 03:48 36.7 C 102 H 20 136/81 96 06/24/19 00:00 98 H 06/23/19 23:15 37.0 C 102 H 16 145/82 H 94 Laboratory Results Comprehensive Metabolic Panel 06/24/19 Range/Units 06:29 Sodium 138 (136-145) mmol/L Potassium 3.7 (3.5-5.1) mmol/L Chloride 103 (98-107) mmol/L Carbon Dioxide 29 (21-32) mmol/L BUN 63 H (7-18) mg/dl Creatinine 1.76 H D (0.6-1.2) mg/dl Glucose 97 (70-99) mg/dl Calcium 8.1 L (8.5-10.1) mg/dl Intake and Output 06/23/19 06/24/19 06/24/19 22:59 06:59 14:59 Intake Total 611.333 / 1301.333 50 / 1301.333 Output Total 200 / 950 550 / 950 Balance 411.333 / 351.333 -500 / 351.333 Intake: IV 371.333 / 371.333 Lr 1,000 ml @ 40 mls/hr IV . 371.333 / 371.333 Q24H SACHA Rx#:[id number] Oral 240 / 930 50 / 930 Output: Urine 200 / 950 550 / 950 Other: Weight 76.4 kg Diagnostic Findings Telemetry: Atrial fibrillation throughout, the rate is reasonably well controlled averaging right around 100 and in a fairly narrow heart rate band between about 90 and 110 bpm Pacemaker evaluation: I performed pacemaker evaluation myself today, she has had increasing frequency of atrial fibrillation since March, before that she had only rare episodes. Her current episode appears to have started about 2 weeks ago and her rate during atrial fibrillation averaging slightly over 100 prior to admission. Battery voltage is excellent at 5.5 years and she is very rarely pacing which is appropriate. PG Care Time/CCT Total # of Minutes Spent Total Time Spent with Patient: Total time spent is greater than 50% in coordination of care (as documented) at patient's floor/unit and/or counseling patient: Coding Level of Care Code 59265 Subseq Hosp Care Lvl 3 Diagnoses Atrial fibrillation I48.91 Acute on chronic systolic (congestive) heart failure I50.23 Pacemaker Z95.0
[2019-06-24] MEDS ORDERED: METOPROLOL TARTRATE 50 MG TAB PO STA (09:40)
[2019-06-24] MEDS: METOPROLOL TARTRATE 100 MG TAB PO SCH (20:36)
[2019-06-24] MEDS: SERTRALINE HCL 50 MG TABLET PO SCH (20:37)
--- NOTE | 2019-06-24 20:40 | Hospitalist Progress Note ---
Date of Service June 24, 2019 Assessment & Plan (1) Acute on chronic systolic (congestive) heart failure: Mainly right sided heart failure in setting of a. fib with RVR. Discussed with Dr Kee and as suspected she has been having increasing episodes of a. fib more recently and therefore suspect current episode purely down to a. fib with RVR. TTE with normal estimated ventricular systolic pressure but severe tricuspid regurg and global hypokinesis supports this. Diuresis just caused increasing Cr, improved today off Lasix without change in her lung exam or leg edema. I&Os appear accurate and reflect this. Trend BNP Avoid ACEi/ARB in setting of CKD stage IV. Continue to increase BB as HR/BP allows (at some point will need to convert to XL for heart failure). (2) Atrial fibrillation with RVR: Discontinued dronedarone as per Dr Milligan Continue to increase metoprolol tartrate for better rate control -> 100mg BID. Discussed prior hemarthrosis with patient and agreeable to starting full anticoagulation. Given age > 80 and Cr > 1.5 will start on lower dose 2.5mg BID. (3) Bilateral leg edema: US doppler negative. Unclear baseline, but patient reports large difference over the last 2 weeks. Usually large but not edematous legs as per Dr Milligan's note. Appreciate compression stocking from orthotics which appear to be helping but unsure if patient able to wear these at home. Suspect secondary to venous insufficiency in setting of right heart failure (4) Bronchitis: Yellow sputum - suspect viral. No indication for antibiotics without suspected pertussis. Procalcitonin negative 06/20. No change with prednisone or duonebs despite emphysematous changes on CXR, therefore discontinued Lungs clear to auscultation. Repeat CXR / clear. (5) Weakness: Generalized weakness/ambulatory dysfunction. Secondary to weight of legs from swelling. Patient living by herself. PT/OT, patient case coordinator for discharge planning. ?[facility] once medically stable. 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 Appreciate pacemaker check by Dr Kee. (8) Depression: Continue sertraline 25 mg at bedtime. (9) Chronic kidney disease, stage IV (severe): Baseline in March Cr 1.59. Increased to 2.21 with IV lasix. Now back to Cr 1.76 however BUN still elevated. Holding further lasix at this time. Repeat BMP daily. (10) DVT prophylaxis: SCDs Will start on lower dose of Eliquis given renal function and age. Admission and Anticipated Discharge Date Admission Date: June 21, 2019 Subjective Patient remains the same. Only real change in leg edema due to the stockings provided. Ongoing yellow sputum cough which has not changed with steroids or duonebs. No chest pain or dizziness. No orthopnea or PND. Her main issue remains her leg edema. Despite increasing metoprolol dosing her HR does not appear to have changed on telemetry over the last few days. Called her daughter to update in the evening but no answer at this time. Review of Systems Review of Systems: All systems reviewed & are unremarkable except as noted in HPI & below Physical Exam Constitutional: well developed; no acute distress Eyes: + anicteric sclerae; normal pupil size ENMT: external ear and nose normal, oropharynx normal Neck: trachea midline, no thyromegaly Respiratory: normal respiratory effort, lungs clear to auscultation Cardiovascular: Rate/Rhythm: + tachycardic and + irregularly irregular Heart Sounds: no murmur Vessels: + JVD (half way up to ear lobe) Extremities: normal capillary refill, + calf tenderness (b/l equal) and + pedal edema (2+ to knees, under stockings) Gastrointestinal (Abdomen): normal bowel sounds, soft, nontender, no hepatosplenomegaly Musculoskeletal: no cyanosis or clubbing, extremities motor strength 5/5 Skin: no rashes, warm and dry (no cellulitis) Neurologic: moves all extremities and awake; no focal motor deficits and not confused Speech / Cognition: normal speech Psychiatric: A+Ox3, euthymic affect Results & Data ([facility]) Vital Signs (Past 12 Hours) Vital Signs Temp Pulse Resp BP BP Pulse Ox 06/24/19 19:43 36.7 C 99 H 16 128/82 95 06/24/19 15:56 36.8 C 101 H 18 127/86 97 06/24/19 15:38 36.8 C 87 17 102/67 92 06/24/19 11:51 36.6 C 93 H 20 111/74 94 PG Care Time/CCT Total # of Minutes Spent Total Time Spent with Patient: Total time spent is greater than 50% in coordination of care (as documented) at patient's floor/unit and/or counseling patient: Coding Level of Care Code 64130 Subseq Hosp Care Lvl 3 Diagnoses Acute on chronic systolic (congestive) heart failure I50.23 Atrial fibrillation with RVR I48.91 Bilateral leg edema R60.0 Bronchitis J40 Weakness R53.1 Ambulatory dysfunction R26.2 Pacemaker Z95.0 Depression F32.9 Depression Type: unspecified Chronic kidney disease, stage IV (severe) N18.4 DVT prophylaxis Z29.9 (1) Depression Depression Type: unspecified Qualified Code(s): F32.9 - Major depressive disorder, single episode, unspecified
[2019-06-24] MEDS: LORazepam 0.5 MG TAB PO SCH (20:43)
[2019-06-25 06:43] LABS: Hemoglobin 10.6 g/dL (12.0-16.0); Mean Corpuscular Hemoglobin 29.9 pg (25-34); Mean Corpuscular Hgb Conc 33.1 g/dL (32-36); Mean Corpuscular Volume 90.1 fL (80-100); Mean Platelet Volume 9.9 fL (7.4-10.4); Platelet Count 195 K/uL (130-400); RDW Coefficient of Variation 15.5 % (11.5-14.5); RDW Standard Deviation 51.2 fL (36.4-46.3); Red Blood Count 3.55 M/uL (4.2-5.4); White Blood Count 7.53 K/uL (4.8-10.8)
[2019-06-25 07:24] LABS: BUN Creatinine Ratio 36.3 (10-20); Calcium 8.4 mg/dl (8.5-10.1); Creatinine Clr Calc Pharmacy 24.9 ml/min; Est GFR (African American) 33.2; Est GFR (Non-African American) 28.6; Potassium 3.9 mmol/L (3.5-5.1)
[2019-06-25] MEDS: APIXABAN 2.5 MG TAB PO SCH ×2 (08:31→21:31)
[2019-06-25] MEDS: guaiFENesin 600 MG TABCR PO SCH ×2 (08:32→21:30)
[2019-06-25] MEDS: PANTOprazole 40 MG TAB PO SCH (08:39)
[2019-06-25] MEDS: METOPROLOL TARTRATE 100 MG TAB PO SCH ×2 (08:39→21:28)
[2019-06-25] MEDS: BENZONATATE 100 MG CAPSULE PO SCH ×2 (08:40→13:35)
[2019-06-25] MEDS: EZETIMIBE 10 MG TABLET PO SCH (08:40)
[2019-06-25] MEDS: CEROVITE ADV FORMULA TAB PO SCH ×2 (08:41→21:28)
[2019-06-25] MEDS: allopurinoL 100 MG TAB PO SCH (08:41)
--- NOTE | 2019-06-25 11:43 | Cardiology Progress Note ---
Date of Service June 25, 2019 Assessment & Plan (1) Atrial fibrillation: She presents in atrial fibrillation, her atrial fibrillation has been paroxysmal. She has had increasing frequency of atrial fibrillation over the last 3 months based on pacemaker monitoring, and she has been in it continuously for about 2 weeks which coincides very closely with her symptoms. Sometimes atrial fibrillation is very poorly tolerated hemodynamically, especially in people with left ventricular dysfunction and therefore this likely contributed to her presentation. Unfortunately she was not anticoagulated and therefore cardioversion is not a good option, although consideration could be given to transesophageal echocardiography followed by anticoagulation despite her potential risk, versus starting anticoagulation and waiting a month and performing cardioversion. That is certainly not something I would do this weekend. Rate control is a little bit of an issue, but not much, as her rate is not terribly abnormal, averaging about 90-100 on telemetry here (on 100 mg twice daily of metoprolol) and a little over 100 prior to presentation based on pacemaker diagnostics. I think we should adjust her rate control and I did increase her beta-william to metoprolol 100 mg twice a day but she remains somewhat elevated. I am going to continue the short acting preparation, but if she tolerates that she should be converted to metoprolol succinate for her left ventricular dysfunction. I am going to add digoxin as a loading dose today, but not put her on a daily regimen as yet. (2) Acute on chronic systolic (congestive) heart failure: She has a long history of heart failure, she has some degree of left ventricular dysfunction as well as right ventricular dysfunction and she also has renal insufficiency which may in part be due to decreased cardiac performance including her atrial irregularity. Returning her to sinus rhythm may help control her heart failure but that does not seem to be an option at the moment based on my note above. Rate control is probably the best option, although I am not sure will make much difference since her rate is not terribly fast. Her creatinine is increased slightly but I would go ahead and diuresis to the point where her creatinine clearly rises, there is some fluctuation but I do not see a clear rise recently and she has longstanding renal insufficiency. (3) Pacemaker: She has a pacemaker, it is a [employer] Versa model [id number] and is working well but does not need to pace in her current rhythm and even before atrial fibrillation and was not pacing much. This appears appropriate. Battery longevity is excellent at 5.5 years. Admission and Anticipated Discharge Date Admission Date: June 21, 2019 Subjective She thinks she is feeling a little bit better today, she feels her breathing is still not normal. No cardiovascular complaints. No bleeding on anticoagulation. Physical Exam Physical Exam: Constitutional: Alert, cooperative and in no distress. HEENT: Unremarkable Neck: No jugular venous distention, carotid pulses are irregular but otherwise normal and equal bilaterally without bruits. Pulmonary: Rhonchi on auscultation bilaterally. Cardiac: Irregular rhythm with no murmur, gallop or rub. Abdomen: Soft, nontender with normal bowel sounds. Extremities: Her legs are large, she does have at least +1 or +2 edema. Distal pulses intact. Neurologic: No focal findings. Gait was not tested. Skin: No rash, ecchymoses or petechiae. Results & Data ([facility]) Vital Signs (Past 12 Hours) Vital Signs Temp Pulse Pulse Resp BP Pulse Ox 06/25/19 09:45 105 H 06/25/19 08:00 36.9 C 91 H 20 125/84 97 06/25/19 03:22 36.9 C 97 H 22 125/74 96 06/25/19 00:19 83 06/24/19 23:04 36.5 C 95 H 18 120/72 96 Laboratory Results CBC 06/25/19 Range/Units 06:17 WBC 7.53 (4.8-10.8) K/uL RBC 3.55 L (4.2-5.4) M/uL Hgb 10.6 L (12.0-16.0) g/dL Hct 32.0 L (37-47) % Plt Count 195 (130-400) K/uL Comprehensive Metabolic Panel 06/25/19 Range/Units 06:17 Sodium 138 (136-145) mmol/L Potassium 3.9 (3.5-5.1) mmol/L Chloride 103 (98-107) mmol/L Carbon Dioxide 29 (21-32) mmol/L BUN 59 H (7-18) mg/dl Creatinine 1.62 H (0.6-1.2) mg/dl Glucose 86 (70-99) mg/dl Calcium 8.4 L (8.5-10.1) mg/dl Intake and Output 06/24/19 06/25/19 06/25/19 21:59 06:59 14:59 Intake Total Output Total Balance Intake: Oral Output: Urine Other: Weight Diagnostic Findings Telemetry: Atrial fibrillation, heart rate generally 90-100 PG Care Time/CCT Total # of Minutes Spent Total Time Spent with Patient: Total time spent is greater than 50% in coordination of care (as documented) at patient's floor/unit and/or counseling patient: Coding Level of Care Code 28391 Subseq Hosp Care Lvl 2 Diagnoses Atrial fibrillation I48.91 Acute on chronic systolic (congestive) heart failure I50.23 Pacemaker Z95.0
[2019-06-25] MEDS ORDERED: DIGOXIN 0.125 MG TAB PO ONE ×2 (12:52→16:00)
[2019-06-25] MEDS: SERTRALINE HCL 50 MG TABLET PO SCH (21:29)
[2019-06-25] MEDS: LORazepam 0.5 MG TAB PO SCH (21:33)
--- NOTE | 2019-06-25 23:19 | Hospitalist Progress Note ---
Date of Service June 25, 2019 Assessment & Plan (1) Acute on chronic systolic (congestive) heart failure: Mainly right sided heart failure in setting of a. fib with RVR which has been having with increased frequency and now persistent. Currently undertaking rate control strategy although rate is not changing substantially and she may need cardioversion at some point. Will start digoxin today. TTE with normal estimated ventricular systolic pressure but severe tricuspid regurg and global hypokinesis supports this. Diuresis just caused increasing Cr. Cr continues to improve off lasix. Will go back to 20mg PO lasix daily. Trend BNP Avoid ACEi/ARB in setting of CKD stage IV. Continue to increase BB as HR/BP allows (at some point will need to convert to XL for heart failure). (2) Atrial fibrillation with RVR: Discontinued dronedarone as per Dr Milligan Continue to increase metoprolol tartrate for better rate control -> 100mg BID. Now adding digoxin as discussed with Dr Kee. Discussed prior hemarthrosis with patient and agreeable to starting full anticoagulation. Given age > 80 and Cr > 1.5 will start on lower dose 2.5mg BID. Uric acid normal therefore less concerned about gout occurring again as she is now on allopurinol. (3) Bilateral leg edema: US doppler negative. Unclear baseline, but patient reports large difference over the last 2 weeks. Usually large but not edematous legs as per Dr Milligan's note. Appreciate compression stocking from orthotics which appear to be helping but unsure if patient able to wear these at home. Suspect secondary to venous insufficiency in setting of right heart failure (4) Bronchitis: Yellow sputum - suspect viral. No indication for antibiotics without suspected pertussis. Will repeat CXR in AM given worsening lung auscultation. Procalcitonin negative 3/4. No change with prednisone or duonebs despite emphysematous changes on CXR, therefore discontinued (5) Weakness: Generalized weakness/ambulatory dysfunction. Secondary to weight of legs from swelling. Patient living by herself. PT/OT, telehealth case manager for discharge planning. ?[facility] once medically stable. 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 Appreciate pacemaker check by Dr Kee. (8) Depression: Continue sertraline 25 mg at bedtime. (9) Chronic kidney disease, stage IV (severe): Baseline in March Cr 1.59. Increased to 2.21 with IV lasix. Now back to Cr 1.76 however BUN still elevated. Holding further lasix at this time. Repeat BMP daily. (10) DVT prophylaxis: SCDs Started on lower dose of Eliquis given renal function and age 3/7. Admission and Anticipated Discharge Date Admission Date: June 21, 2019 Subjective Patient feels much the same. Still short of breath. No chest pain. Yellow sputum cough continues, she is adamant the duonebs did not help at all. Leg edema mildly improved just due to . No real change in heart rate on telemetry. No orthopnea or PND. Review of Systems Review of Systems: All systems reviewed & are unremarkable except as noted in HPI & below Physical Exam Constitutional: well developed; no acute distress Eyes: + anicteric sclerae; normal pupil size ENMT: external ear and nose normal, oropharynx normal Neck: trachea midline, no thyromegaly Respiratory: normal respiratory effort Auscultation: + crackles (bibasal R > L) and + wheezes (mild expiratory) Cardiovascular: Rate/Rhythm: + tachycardic and + irregularly irregular Heart Sounds: no murmur Vessels: + JVD (half way up to ear lobe) Extremities: normal capillary refill and + pedal edema (2+ to knees, under stockings) Gastrointestinal (Abdomen): normal bowel sounds, soft, nontender, no hepatosplenomegaly Musculoskeletal: no cyanosis or clubbing, extremities motor strength 5/5 Skin: no rashes, warm and dry (no cellulitis) Neurologic: moves all extremities and awake; not confused Psychiatric: A+Ox3, euthymic affect Results & Data ([facility]) Vital Signs (Past 12 Hours) Vital Signs Temp Pulse Pulse Resp BP BP Pulse Ox 06/25/19 19:17 36.6 C 109 H 22 134/74 94 06/25/19 16:28 92 H 06/25/19 15:11 36.6 C 99 H 19 117/80 98 06/25/19 13:35 94 H 06/25/19 11:53 36.8 C 85 20 121/78 95 PG Care Time/CCT Total # of Minutes Spent Total Time Spent with Patient: Total time spent is greater than 50% in coordin ation of care (as documented) at patient's floor/unit and/or counseling patient: Coding Level of Care Code 31873 Subseq Hosp Care Lvl 2 Diagnoses Acute on chronic systolic (congestive) heart failure I50.23 Atrial fibrillation with RVR I48.91 Bilateral leg edema R60.0 Bronchitis J40 Weakness R53.1 Ambulatory dysfunction R26.2 Pacemaker Z95.0 Depression F32.9 Depression Type: unspecified Chronic kidney disease, stage IV (severe) N18.4 DVT prophylaxis Z29.9 (1) Depression Depression Type: unspecified Qualified Code(s): F32.9 - Major depressive disorder, single episode, unspecified
[2019-06-26 06:15] LABS: Hematocrit (blood only) 33.2 % (37-47); Hemoglobin 11.1 g/dL (12.0-16.0); Mean Corpuscular Hgb Conc 33.4 g/dL (32-36); Mean Corpuscular Volume 89.7 fL (80-100); Mean Platelet Volume 9.5 fL (7.4-10.4); Platelet Count 195 K/uL (130-400); RDW Coefficient of Variation 15.4 % (11.5-14.5); RDW Standard Deviation 50.6 fL (36.4-46.3); White Blood Count 8.55 K/uL (4.8-10.8)
[2019-06-26 06:45] LABS: BUN Creatinine Ratio 31.6 (10-20); Calcium 8.6 mg/dl (8.5-10.1); Creatinine Clr Calc Pharmacy 25.4 ml/min; Est GFR (Non-African American) 29.3; Potassium 4.1 mmol/L (3.5-5.1)
[2019-06-26] MEDS: CEROVITE ADV FORMULA TAB PO SCH ×2 (08:38→20:30)
[2019-06-26] MEDS: FUROSEMIDE 20 MG TAB PO SCH (08:38)
[2019-06-26] MEDS: guaiFENesin 600 MG TABCR PO SCH ×2 (08:39→20:30)
[2019-06-26] MEDS: PANTOprazole 40 MG TAB PO SCH (08:39)
[2019-06-26] MEDS: APIXABAN 2.5 MG TAB PO SCH ×2 (08:39→20:29)
[2019-06-26] MEDS: METOPROLOL TARTRATE 100 MG TAB PO SCH ×2 (08:40→20:30)
[2019-06-26] MEDS: EZETIMIBE 10 MG TABLET PO SCH (08:41)
[2019-06-26] MEDS: allopurinoL 100 MG TAB PO SCH (08:41)
--- NOTE | 2019-06-26 09:11 | XRay Report ---
XR chest 2V PA/lateral CLINICAL HISTORY: productive cough, shortness of breath dyspnea COMPARISON STUDY: 06/23/2019 FINDINGS: Mild stable cardiomegaly. Bipolar cardiac pacemaker with leads in good position. Lungs are clear. Diaphragms are smooth but slightly flattened. IMPRESSION: Chronic and postoperative change. No acute process. ACT 112: Negative or not required by law. The above report was generated using voice recognition software. It may contain grammatical, syntax or spelling errors. Electronically signed by: Max Alatorre M.D. 06/26/2019 9:10 AM
--- NOTE | 2019-06-26 17:52 | Hospitalist Progress Note ---
Date of Service June 26, 2019 Assessment & Plan (1) Acute on chronic systolic (congestive) heart failure: Difficult to discern if her edema is from venous stasis/chronic, versus from predominantly right-sided CHF. She does not appear to have much of a decompensation of left-sided CHF given that she does not show or examine like pulmonary edema, she is not having significant orthopnea, and she is on room air. That said, neither right-sided CHF nor venous stasis would respond well to diuresisand I would anticipate a significant uptick in her creatinine if we try to fix the problem predominantly with diuresis. Given that she does have a low EF, we will add Entresto given that it seems to be very helpful in patients with a low EF, in the hopes that reducing afterload may allow better forward flow throughout her entire circulatory system. Start this tonight and follow cautiously. Low threshold to stop Lasix. Follow basic metabolic panel closely. Given that she does not have palpitations, and given that her symptoms mostly seem to be that of leg swelling, I doubt that the A. fib is the problem. Follow closely otherwise. (2) Atrial fibrillation with RVR: Rates are now reasonably controlled, continue anticoagulation. (3) Bilateral leg edema: US doppler negative. Unclear baseline, but patient reports large difference over the last 3-[address] Hines in todayshe notes that what he recalls is baseline her having fairly large legs. That said, in any acuity certainly could relate to her excess sodium intake which I educated her extensively about as far as how sodium leads to fluid retention, as well as some strategies on how to minimize salt intake. Set a goal of less than 1500 to 2000 mg. (4) Bronchitis: Yellow sputum - suspect viral. No indication for antibiotics without suspected pertussis. Pro-Fransisco reassuring, chest x-ray yet again negative. Continue off of antibiotics. Supportive care. (5) Weakness: Generalized weakness/ambulatory dysfunction. PT/OT eval and treat, possibly needing rehab. Long discussion about getting more help at home. 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 Appreciate pacemaker check by Dr Kee. (8) Depression: Continue sertraline 25 mg at bedtime. (9) Chronic kidney disease, stage IV (severe): Baseline in March Cr 1.59. Increased to 2.21 with IV lasix. No closer to baseline rangecontinue to follow closely with above-noted medications. (10) DVT prophylaxis: SCDs Started on lower dose of Eliquis given renal function and age 3/7. (11) Discharge planning issues: Continue med management as above, PT/OT eval and treat, home versus rehab as she continues to improve clinically. Admission and Anticipated Discharge Date Admission Date: June 21, 2019 Subjective Time in approximately 250, time out approximately 330, approximately 40 minutes [id number]. Patient notes her breathing feels better than when she first came in, overall she feels better than when she first came in. Does still have a yellow productive cough, no fevers chills or sweats. She denies any orthopnea, sleeps on 2 pillows but this is a chronic thing for her, notes legs are still swollen. Daughter notes that without extreme motivation/encouragement patient will not get up and do much of anything, daughter has been trying to get her to take a few walks, and she has at least done so twice today. Patient herself gets tearful and notes that she feels like she is not doing as well at home as she could be and would like to have more help at home. She does not want to give up her independence, but seems loosely interested in trying to hire more help. No palpitations. Extensive discussions with patient and daughter in regards to diagnoses, etiologies, differentials, and ongoing work-up. Review of Systems Review of Systems: All systems reviewed & are unremarkable except as noted in HPI & below Physical Exam Physical Exam: In general she is awake and alert pleasant no distress. HEENT normocephalic atraumatic mucous membranes moist. Cardio is rate controlled, lungs are clear to auscultation bilaterally no rales rhonchi or wheeze with good effort. Extremities show no cyanosis or clubbing, her legs are bilateral diffusely enlargedshe notes that they were not this big 3 or 4 weeks ago, she has scattered varicosities, it is difficult to truly gauge the edema degree because she is exquisitely tender to palpation of bilateral shins which she notes is chronic. Results & Data ([facility]) Vital Signs (Past 12 Hours) Vital Signs Temp Pulse Pulse Resp BP BP Pulse Ox 06/26/19 15:45 97.9 F 99 H 22 158/92 H 97 03/09/20 11:42 97.9 F 94 H 19 123/75 93 06/26/19 07:30 89 06/26/19 07:02 98.1 F 88 17 141/76 H 92 PG Care Time/CCT Total # of Minutes Spent Total Time Spent with Patient: Total time spent is greater than 50% in coordination of care (as documented) at patient's floor/unit and/or counseling patient: Coding Level of Care Code 86949 Subseq Hosp Care Lvl 3 Diagnoses Acute on chronic systolic (congestive) heart failure I50.23 Atrial fibrillation with RVR I48.91 Bilateral leg edema R60.0 Bronchitis J40 Weakness R53.1 Ambulatory dysfunction R26.2 Pacemaker Z95.0 Depression F32.9 Depression Type: unspecified Chronic kidney disease, stage IV (severe) N18.4 DVT prophylaxis Z29.9 Discharge planning issues Z02.9 (1) Depression Depression Type: unspecified Qualified Code(s): F32.9 - Major depressive disorder, single episode, unspecified
--- NOTE | 2019-06-26 17:53 | Billing Data ---
Date of Service June 26, 2019 Coding Level of Care Code 01800 Prolonged Care (int'l)
[2019-06-26] MEDS: SERTRALINE HCL 50 MG TABLET PO SCH (20:31)
[2019-06-26] MEDS: LORazepam 0.5 MG TAB PO SCH (20:33)
[2019-06-26] MEDS: SACUBITRIL-VALSARTAN 24-26 MG TAB PO SCH (21:15)
[2019-06-27 08:13] LABS: BUN Creatinine Ratio 30.6 (10-20); Calcium 8.8 mg/dl (8.5-10.1); Creatinine Clr Calc Pharmacy 28.6 ml/min; Est GFR (African American) 39.6; Est GFR (Non-African American) 34.2; Potassium 3.9 mmol/L (3.5-5.1)
[2019-06-27] MEDS: SACUBITRIL-VALSARTAN 24-26 MG TAB PO SCH ×2 (09:26→20:33)
[2019-06-27] MEDS: guaiFENesin 600 MG TABCR PO SCH ×2 (09:26→20:34)
[2019-06-27] MEDS: allopurinoL 100 MG TAB PO SCH (09:27)
[2019-06-27] MEDS: CEROVITE ADV FORMULA TAB PO SCH ×2 (09:27→20:35)
[2019-06-27] MEDS: FUROSEMIDE 20 MG TAB PO SCH (09:27)
[2019-06-27] MEDS: APIXABAN 2.5 MG TAB PO SCH ×2 (09:27→20:33)
[2019-06-27] MEDS: PANTOprazole 40 MG TAB PO SCH (09:27)
[2019-06-27] MEDS: METOPROLOL TARTRATE 100 MG TAB PO SCH ×2 (09:27→20:34)
[2019-06-27] MEDS: EZETIMIBE 10 MG TABLET PO SCH (09:27)
--- NOTE | 2019-06-27 10:10 | Internal Medicine Consult Note ---
Date of Consultation June 27, 2019 Assessment & Plan (1) Encounter for rehabilitation evaluation: She is a good candidate for the rehab hospital. Medical targets are moving in the right direction. We can continue close medical oversight during additional recovery before returning home. History of Present Illness Reason for Consultation: Rehab Hospital Medical Evaluation Attending Physician: Clovis Barrios DO History of Present Illness Admitted with decompensated CHF/Atrial Fib. Underlying chronic renal insu fficiency noted. Recovering from viral bronchial infection. She is weak and needs time to recover before return to independent living. She lives alone in her own home and desires to return. Her respiratory status is improved. Allergies Allergy/AdvReac Type Severity Reaction Status Date / Time Iodinated Contrast Media Allergy Severe Difficulty Verified 06/20/19 20:50 Breathing, Severe Hives Sulfa (Sulfonamide Allergy Mild . Verified 06/20/19 20:50 Antibiotics) cephalexin Allergy Unknown Unknown Verified 06/20/19 20:50 diphenhydramine Allergy Unknown DOES NOT Verified 06/20/19 20:50 REMEMBER potassium chloride Allergy Unknown unknown Verified 06/20/19 20:50 MUSHROOMS Allergy Unknown . Uncoded 06/20/19 20:50 Home Medications Home Medications Medication Instructions Recorded Confirmed Type allopurinol 100 mg PO QAM 06/20/19 06/20/19 History artificial tears(hypromellose) 1 drp OPHTHALMIC (EYE) QID PRN 06/20/19 06/20/19 History dronedarone [Multaq] 400 mg PO BID 06/20/19 06/20/19 History ezetimibe 10 mg PO QAM 06/20/19 06/20/19 History furosemide 20 mg PO DAILY PRN 06/20/19 06/20/19 History lorazepam 0.5 mg PO HS 06/20/19 06/20/19 History meclizine 12.5 mg PO Q6H PRN 06/20/19 06/20/19 History metoprolol tartrate 25 mg PO BID 06/20/19 06/20/19 History fyfhwvvl-ldh-qdht-FA-lutein 1 tab PO QAM 06/20/19 06/20/19 History [Centrum Silver Women] nitroglycerin [Nitrostat] 0.4 mg SUBLINGUAL DIRECTED PRN 06/20/19 06/20/19 History omeprazole 20 mg PO QAM 06/20/19 06/20/19 History sertraline 25 mg PO HS 06/20/19 06/20/19 History vit C,D-Ks-xljiq-lutein-zeaxan 1 tab PO BID 06/20/19 06/20/19 History [PreserVision AREDS-2] Patient History Medical History Abnormal stress test Ambulatory dysfunction (Acute) Atrial fibrillation (Acute 04/24/13) Chest pain Contusion of left hip (Acute) Degenerative arthritis of knee (Acute 03/16/14) Depression Dizziness (Acute) DJD (degenerative joint disease) (Acute) GI bleed (Acute) Gouty arthritis (Acute) Head trauma (Acute) Headache (Acute) Hemarthrosis (Acute) Hip hematoma, left (Acute) Left knee DJD (Acute) Left knee pain (Acute) Osteoarthritis (Acute) Pacemaker (Resolved) Rib fracture (Acute) Right rib fracture (Acute) Scalp hematoma (Acute) UTI (urinary tract infection) (Acute) Weakness (Acute) Social History Preferred Language: Korean Communication Ability: Effective Quality System Manager Required: No Beliefs That Will Affect Care: None Current Living Situation: Alone Feels Safe at Home: Yes Smoking Status: Never smoker Hx Alcohol Use: No Hx Substance Use: No Review of Systems Review of Systems: No new targets Physical Exam Physical Exam: Vitals stable. Weight is improved Exchange is comfortable Volume status looking ok GI--benign neuro--no focal Results & Data Vital Signs (Past 12 Hours) Vital Signs Temp Pulse Pulse Resp BP Pulse Ox 06/27/19 09:53 95 H 06/27/19 07:01 36.5 C 91 H 18 127/74 92 06/27/19 03:12 36.8 C 88 20 145/83 H 94 06/26/19 23:55 36.8 C 92 H 20 157/78 H 97
--- NOTE | 2019-06-27 19:05 | Hospitalist Progress Note ---
Date of Service June 27, 2019 Assessment & Plan (1) Acute on chronic systolic (congestive) heart failure: Difficult to discern if her edema is from venous stasis/chronic, versus from predominantly right-sided CHF. She does not appear to have much of a decompensation of left-sided CHF given that she does not show or examine like pulmonary edema, she is not having significant orthopnea, and she is on room air. That said, neither right-sided CHF nor venous stasis would respond well to diuresisand I would anticipate a significant uptick in her creatinine if we try to fix the problem predominantly with diuresis. Given that she does have a low EF, gave trial to Entresto given that it seems to be very helpful in patients with a low EF, in the hopes that reducing afterload may allow better forward flow throughout her entire circulatory system. seems to have affected a reasonable degree of improvement. Low threshold to stop Lasix. Follow basic metabolic panel closely. slowly titrate entresto up as tolerated. Given that she does not have palpitations, and given that her symptoms mostly seem to be that of leg swelling, I doubt that the A. fib is the problem as long as rate control stays reasonable. Follow closely otherwise. (2) Atrial fibrillation with RVR: Rates are now staying reasonably controlled, continue anticoagulation. (3) Bilateral leg edema: US doppler negative. Unclear baseline, but patient reports large difference over the last 3-4 weeks. Cardiology did note that she has relatively large legs at baseline. That said, in any acuity certainly could relate to her excess sodium intake which I educated her extensively about as far as how sodium leads to fluid retention, as well as some strategies on how to minimize salt intake. Set a goal of less than 1500 to 2000 mg. asked pumper gauger apprentice to help educate in this respect as well. (4) Bronchitis: Yellow sputum - suspect viral. No indication for antibiotics without suspected pertussis. Pro-Fransisco reassuring, chest x-ray yet again negative. Continue off of antibiotics. Supportive care. no complaints of this today - seems to be resolving (5) Weakness: Generalized weakness/ambulatory dysfunction. 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 Appreciate pacemaker check by Dr Kee. (8) Depression: Continue sertraline 25 mg at bedtime. (9) Chronic kidney disease, stage IV (severe): continue to follow BMP closely titrate lasix/entresto (10) DVT prophylaxis: SCDs Started on lower dose of Eliquis given renal function and age 3/7. (11) Discharge planning issues: Continue med management as above, PT/OT eval and treat, stable for med/surg, rehab once bed available Admission and Anticipated Discharge Date Admission Date: June 21, 2019 Anticipated date of discharge: 06/28/19 Subjective feeling ok - leg swelling down some although at first she notes they feel about the same. breathing is reasonable. no new complaints otherwise. amenable to rehab Review of Systems Review of Systems: All systems reviewed & are unremarkable except as noted in HPI & below Physical Exam Physical Exam: gen aao pleasant nad heent nc at mmm lungs cta b/l no rrw good effort cardio rates controlled neuro cn 2-12 grossly intact gross motor intact. good recent and remote recall, moderately anxious mood Results & Data ([facility]) Vital Signs (Past 12 Hours) Vital Signs Temp Pulse Pulse Pulse Resp BP BP 06/27/19 15:00 97.7 F 98 H 16 105/68 06/27/19 11:09 97.9 F 85 18 81/50 L 93/61 L 06/27/19 09:53 95 H 06/27/19 07:01 97.7 F 91 H 18 127/74 Pulse Ox 06/27/19 15:00 93 06/27/19 11:09 95 06/27/19 09:53 06/27/19 07:01 92 PG Care Time/CCT Total # of Minutes Spent Total Time Spent with Patient: Total time spent is greater than 50% in coordination of care (as documented) at patient's floor/unit and/or counseling patient: Coding Level of Care Code 50141 Subseq Hosp Care Lvl 3 Diagnoses Acute on chronic systolic (congestive) heart failure I50.23 Atrial fibrillation with RVR I48.91 Bilateral leg edema R60.0 Bronchitis J40 Weakness R53.1 Ambulatory dysfunction R26.2 Pacemaker Z95.0 Depression F32.9 Depression Type: unspecified Chronic kidney disease, stage IV (severe) N18.4 DVT prophylaxis Z29.9 Discharge planning issues Z02.9 (1) Depression Depression Type: unspecified Qualified Code(s): F32.9 - Major depressive disorder, single episode, unspecified
[2019-06-27] MEDS: LORazepam 0.5 MG TAB PO SCH (20:33)
[2019-06-27] MEDS: SERTRALINE HCL 50 MG TABLET PO SCH (20:35)
[2019-06-28 07:00] LABS: BUN Creatinine Ratio 24.8 (10-20); Calcium 8.6 mg/dl (8.5-10.1); Creatinine Clr Calc Pharmacy 22.2 ml/min; Est GFR (African American) 29.2; Est GFR (Non-African American) 25.2; Potassium 4.1 mmol/L (3.5-5.1)
[2019-06-28] MEDS: allopurinoL 100 MG TAB PO SCH (08:06)
[2019-06-28] MEDS: PANTOprazole 40 MG TAB PO SCH (08:06)
[2019-06-28] MEDS: FUROSEMIDE 20 MG TAB PO SCH (08:06)
[2019-06-28] MEDS: EZETIMIBE 10 MG TABLET PO SCH (08:06)
[2019-06-28] MEDS: CEROVITE ADV FORMULA TAB PO SCH ×2 (08:06→20:13)
[2019-06-28] MEDS: METOPROLOL TARTRATE 100 MG TAB PO SCH ×2 (08:07→20:13)
[2019-06-28] MEDS: APIXABAN 2.5 MG TAB PO SCH ×2 (08:07→20:14)
[2019-06-28] MEDS: SACUBITRIL-VALSARTAN 24-26 MG TAB PO SCH ×2 (08:07→20:16)
[2019-06-28] MEDS: guaiFENesin 600 MG TABCR PO SCH ×2 (08:07→20:15)
[2019-06-28] MEDS: SERTRALINE HCL 50 MG TABLET PO SCH (20:15)
--- NOTE | 2019-06-28 20:33 | Hospitalist Progress Note ---
Date of Service June 28, 2019 Assessment & Plan (1) Acute on chronic systolic (congestive) heart failure: Difficult to discern if her edema is from venous stasis/chronic, versus from predominantly right-sided CHF. I agree with previous provider that she does not appear to be decompensated left-sided CHF given that she does not show or examine like pulmonary edema, as she is not having significant orthopnea, and she is on room air. Will continue lasix at this time and monitor her creatinine closely Slowly titrate entresto up as tolerated. Given that she does not have palpitations, and given that her symptoms mostly seem to be that of leg swelling, I doubt that the A. fib is the problem as long as rate control stays reasonable. Follow closely otherwise. (2) Atrial fibrillation with RVR: Rates are now staying reasonably controlled, continue anticoagulation. (3) Bilateral leg edema: US doppler negative. Unclear baseline, but patient reports large difference over the last 3-4 weeks. Cardiology did note that she has relatively large legs at baseline. That said, in any acuity certainly could relate to her excess sodium intake which I educated her extensively about as far as how sodium leads to fluid retention, as well as some strategies on how to minimize salt intake. Set a goal of less than 1500 to 2000 mg. asked help desk intern to help educate in this respect as well. (4) Bronchitis: Yellow sputum - suspect viral. No indication for antibiotics without suspected pertussis. Pro-Fransisco reassuring, chest x-ray yet again negative. Continue off of antibiotics. Supportive care. no complaints of this today - seems to be resolving (5) Weakness: Generalized weakness/ambulatory dysfunction. 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 Appreciate pacemaker check by Dr Kee. (8) Depression: Continue sertraline 25 mg at bedtime. (9) Chronic kidney disease, stage IV (severe): continue to follow BMP closely titrate lasix/entresto (10) DVT prophylaxis: SCDs Started on lower dose of Eliquis given renal function and age 3/7. (11) Discharge planning issues: Continue med management as above, PT/OT eval and treat, stable for med/surg, rehab once bed available Awaiting insurance auth. Admission and Anticipated Discharge Date Admission Date: June 21, 2019 Subjective Patient reports no new symptoms at this time. Review of Systems Review of Systems: The patient denies lower extremity swelling, sore throat, fevers, chills, sweats, vomiting, diarrhea , constipation, abdominal pain, pelvic pain, blood in urine or stool, dysuria, urinary frequency or urgency, lightheadedness, dizziness, headache, loss of consciousness, rash, abnormal bruising or bleeding, focal weakness, numbness or tingling in arms or legs, back or neck pain, or night sweats. The review of systems is otherwise negative other than for that already noted above, and at least 10 systems have been reviewed. Physical Exam Physical Exam: Constitutional: well developed; no acute distress Eyes: + anicteric sclerae; normal pupil size ENMT: external ear and nose normal, oropharynx normal Neck: trachea midline, no thyromegaly Respiratory: normal respiratory effort Auscultation: decreased bibasilar breath sounds. Cardiovascular: Rate/Rhythm: + tachycardic and + irregularly irregular Heart Sounds: no murmur Vessels: no JVD. Extremities: normal capillary refill and + pedal edema (2+ to knees, under stockings) Gastrointestinal (Abdomen): normal bowel sounds, soft, nontender, no hepatosplenomegaly Musculoskeletal: no cyanosis or clubbing, extremities motor strength 5/5 Skin: no rashes, warm and dry (no cellulitis) Neurologic: moves all extremities and awake; not confused Psychiatric: A+Ox3, euthymic affect Results & Data ([facility]) Vital Signs (Past 12 Hours) Vital Signs Temp Pulse Resp BP Pulse Ox 06/28/19 15:09 36.5 C 96 H 18 118/63 95 PG Care Time/CCT Total # of Minutes Spent Total Time Spent with Patient: Total time spent is greater than 50% in coordination of care (as documented) at patient's floor/unit and/or counseling patient: Coding Level of Care Code 47360 Subseq Hosp Care Lvl 3 Diagnoses Acute on chronic systolic (congestive) heart failure I50.23 Atrial fibrillation with RVR I48.91 Bilateral leg edema R60.0 Bronchitis J40 Weakness R53.1 Ambulatory dysfunction R26.2 Pacemaker Z95.0 Depression F32.9 Depression Type: unspecified Chronic kidney disease, stage IV (severe) N18.4 DVT prophylaxis Z29.9 Discharge planning issues Z02.9 Time Spent (min) 35 (1) Depression Depression Type: unspecified Qualified Code(s): F32.9 - Major depressive disorder, single episode, unspecified
[2019-06-28] MEDS: LORazepam 0.5 MG TAB PO SCH (21:21)
[2019-06-29 05:50] LABS: Hematocrit (blood only) 35.8 % (37-47); Hemoglobin 11.7 g/dL (12.0-16.0); Mean Corpuscular Hemoglobin 29.4 pg (25-34); Mean Corpuscular Hgb Conc 32.7 g/dL (32-36); Mean Corpuscular Volume 89.9 fL (80-100); Mean Platelet Volume 9.6 fL (7.4-10.4); Platelet Count 268 K/uL (130-400); RDW Standard Deviation 49.5 fL (36.4-46.3); Red Blood Count 3.98 M/uL (4.2-5.4); White Blood Count 9.44 K/uL (4.8-10.8)
[2019-06-29] MEDS: SACUBITRIL-VALSARTAN 24-26 MG TAB PO SCH ×2 (09:13→20:11)
[2019-06-29] MEDS: APIXABAN 2.5 MG TAB PO SCH ×2 (09:13→20:10)
[2019-06-29] MEDS: FUROSEMIDE 20 MG TAB PO SCH (09:13)
[2019-06-29] MEDS: METOPROLOL TARTRATE 100 MG TAB PO SCH ×2 (09:13→20:11)
[2019-06-29] MEDS: guaiFENesin 600 MG TABCR PO SCH ×2 (09:14→20:10)
[2019-06-29] MEDS: EZETIMIBE 10 MG TABLET PO SCH (09:14)
[2019-06-29] MEDS: CEROVITE ADV FORMULA TAB PO SCH ×2 (09:14→20:11)
[2019-06-29] MEDS: PANTOprazole 40 MG TAB PO SCH (09:14)
[2019-06-29] MEDS: allopurinoL 100 MG TAB PO SCH (09:14)
[2019-06-29 10:44] LABS: BUN Creatinine Ratio 25.9 (10-20); Calcium 8.7 mg/dl (8.5-10.1); Creatinine Clr Calc Pharmacy 21.7 ml/min; Est GFR (African American) 28.5; Est GFR (Non-African American) 24.6; Potassium 4.3 mmol/L (3.5-5.1)
[2019-06-29] MEDS: SERTRALINE HCL 50 MG TABLET PO SCH (20:12)
[2019-06-29] MEDS: LORazepam 0.5 MG TAB PO SCH (20:15)
--- NOTE | 2019-06-29 22:55 | Hospitalist Progress Note ---
Date of Service June 29, 2019 Assessment & Plan (1) Acute on chronic systolic (congestive) heart failure: Difficult to discern if her edema is from venous stasis/chronic, versus from predominantly right-sided CHF. I agree with previous provider that she does not appear to be decompensated left-sided CHF given that she does not show or examine like pulmonary edema, as she is not having significant orthopnea, and she is on room air. Will continue lasix at this time and monitor her creatinine closely Slowly titrate entresto up as tolerated. Given that she does not have palpitations, and given that her symptoms mostly seem to be that of leg swelling, I doubt that the A. fib is the problem as long as rate control stays reasonable. Follow closely otherwise. (2) Atrial fibrillation with RVR: Rates are now staying reasonably controlled, continue anticoagulation. (3) Bilateral leg edema: US doppler negative. Unclear baseline, but patient reports large difference over the last 3-4 weeks. Cardiology did note that she has relatively large legs at baseline. That said, in any acuity certainly could relate to her excess sodium intake which I educated her extensively about as far as how sodium leads to fluid retention, as well as some strategies on how to minimize salt intake. Set a goal of less than 1500 to 2000 mg. asked petroleum geologist to help educate in this respect as well. (4) Bronchitis: Yellow sputum - suspect viral. No indication for antibiotics without suspected pertussis. Pro-Fransisco reassuring, chest x-ray yet again negative. Continue off of antibiotics. Supportive care. resolved. (5) Weakness: Generalized weakness/ambulatory dysfunction. 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 Appreciate pacemaker check by Dr Kee. (8) Depression: Continue sertraline 25 mg at bedtime. (9) Chronic kidney disease, stage IV (severe): continue to follow BMP closely titrate lasix/entresto (10) DVT prophylaxis: SCDs Started on lower dose of Eliquis given renal function and age 3/7. (11) Discharge planning issues: Continue med management as above, PT/OT eval and treat, stable for med/surg, rehab once bed available Awaiting insurance auth. Rehab was dneied after peer to peer review. SNF insurance auth is pending. Admission and Anticipated Discharge Date Admission Date: June 21, 2019 Anticipated date of discharge: 06/28/19 Subjective 83 yo female reports no new symptoms. Her swelling in her lower extremities has not worsened. Review of Systems Review of Systems: All systems reviewed & are unremarkable except as noted in HPI & below Physical Exam Physical Exam: Constitutional: well developed; no acute distress Eyes: + anicteric sclerae; normal pupil size ENMT: external ear and nose normal, oropharynx normal Neck: trachea midline, no thyromegaly Respiratory: normal respiratory effort Auscultation: decreased bibasilar breath sounds. Cardiovascular: Rate/Rhythm: + tachycardic and + irregularly irregular Heart Sounds: no murmur Vessels: no JVD. Extremities: normal capillary refill and + pedal edema (2+ to knees, under stockings) Gastrointestinal (Abdomen): normal bowel sounds, soft, nontender, no hepatosplenomegaly Musculoskeletal: no cyanosis or clubbing, extremities motor strength 5/5 Skin: no rashes, warm and dry (no cellulitis) Neurologic: moves all extremities and awake; not confused Psychiatric: A+Ox3, euthymic affect Results & Data ([facility]) Vital Signs (Past 12 Hours) Vital Signs Temp Pulse Resp BP Pulse Ox 06/29/19 20:15 66 116/74 06/29/19 19:20 36.7 C 98 H 16 102/67 92 06/29/19 16:01 36.6 C 99 H 20 100/58 L 99 06/29/19 10:58 36.3 C L 104 H 18 102/57 L 95 PG Care Time/CCT Total # of Minutes Spent Total Time Spent with Patient: Total time spent is greater than 50% in coordination of care (as documented) at patient's floor/unit and/or counseling patient: Coding Level of Care Code 50438 Subseq Hosp Care Lvl 2 Diagnoses Acute on chronic systolic (congestive) heart failure I50.23 Atrial fibrillation with RVR I48.91 Bilateral leg edema R60.0 Bronchitis J40 Weakness R53.1 Ambulatory dysfunction R26.2 Pacemaker Z95.0 Depression F32.9 Depression Type: unspecified Chronic kidney disease, stage IV (severe) N18.4 DVT prophylaxis Z29.9 Discharge planning issues Z02.9 Time Spent (min) 25 (1) Depression Depression Type: unspecified Qualified Code(s): F32.9 - Major depressive disorder, single episode, unspecified
[2019-06-30] MEDS: SACUBITRIL-VALSARTAN 24-26 MG TAB PO SCH ×2 (08:49→21:14)
[2019-06-30] MEDS: APIXABAN 2.5 MG TAB PO SCH ×2 (08:49→21:14)
[2019-06-30] MEDS: CEROVITE ADV FORMULA TAB PO SCH ×2 (08:50→21:14)
[2019-06-30] MEDS: allopurinoL 100 MG TAB PO SCH (08:50)
[2019-06-30] MEDS: PANTOprazole 40 MG TAB PO SCH (08:50)
[2019-06-30] MEDS: EZETIMIBE 10 MG TABLET PO SCH (08:50)
[2019-06-30] MEDS: guaiFENesin 600 MG TABCR PO SCH ×2 (08:50→21:14)
[2019-06-30] MEDS: METOPROLOL TARTRATE 100 MG TAB PO SCH ×2 (08:54→21:14)
[2019-06-30] MEDS: LORazepam 0.5 MG TAB PO SCH (21:14)
[2019-06-30] MEDS: SERTRALINE HCL 50 MG TABLET PO SCH (21:14)
--- NOTE | 2019-06-30 23:14 | Hospitalist Progress Note ---
Date of Service June 30, 2019 Assessment & Plan (1) Acute on chronic systolic (congestive) heart failure: Difficult to discern if her edema is from venous stasis/chronic, versus from predominantly right-sided CHF. I agree with previous provider that she does not appear to be decompensated left-sided CHF given that she does not show or examine like pulmonary edema, as she is not having significant orthopnea, and she is on room air. BP has been low, will hold lasix on 06/29 Slowly titrate entresto up as tolerated. Given that she does not have palpitations, and given that her symptoms mostly seem to be that of leg swelling, I doubt that the A. fib is the problem as long as rate control stays reasonable. Follow closely otherwise. (2) Atrial fibrillation with RVR: Rates are now staying reasonably controlled, continue anticoagulation. (3) Bilateral leg edema: US doppler negative. Unclear baseline, but patient reports large difference over the last 3-4 weeks. Cardiology did note that she has relatively large legs at baseline. That said, in any acuity certainly could relate to her excess sodium intake which I educated her extensively about as far as how sodium leads to fluid retention, as well as some strategies on how to minimize salt intake. Set a goal of less than 1500 to 2000 mg. asked group contract analyst to help educate in this respect as well. (4) Bronchitis: Yellow sputum - suspect viral. No indication for antibiotics without suspected pertussis. Pro-Fransisco reassuring, chest x-ray yet again negative. Continue off of antibiotics. Supportive care. resolved. (5) Weakness: Generalized weakness/ambulatory dysfunction. 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 Appreciate pacemaker check by Dr Kee. (8) Depression: Continue sertraline 25 mg at bedtime. (9) Chronic kidney disease, stage IV (severe): continue to follow BMP closely titrate lasix/entresto (10) DVT prophylaxis: SCDs Started on lower dose of Eliquis given renal function and age 3/7. (11) Discharge planning issues: Continue med management as above, PT/OT eval and treat, stable for med/surg, rehab once bed available Awaiting insurance auth. Rehab was dneied after peer to peer review. SNF insurance auth required a peer to peer. Waiting determination. Admission and Anticipated Discharge Date Admission Date: June 21, 2019 Anticipated date of discharge: 06/28/19 Subjective Patient reports no new symptoms. Review of Systems Review of Systems: All systems reviewed & are unremarkable except as noted in HPI & below Physical Exam Physical Exam: Constitutional: well developed; no acute distress Eyes: + anicteric sclerae; normal pupil size ENMT: external ear and nose normal, oropharynx normal Neck: trachea midline, no thyromegaly Respiratory: normal respiratory effort Auscultation: decreased bibasilar breath sounds. Cardiovascular: Rate/Rhythm: + tachycardic and + irregularly irregular Heart Sounds: no murmur Vessels: no JVD. Extremities: normal capillary refill and + pedal edema (2+ to knees, under stockings) Gastrointestinal (Abdomen): normal bowel sounds, soft, nontender, no hepatosplenomegaly Musculoskeletal: no cyanosis or clubbing, extremities motor strength 5/5 Skin: no rashes, warm and dry (no cellulitis) Neurologic: moves all extremities and awake; not confused Psychiatric: A+Ox3, euthymic affect Results & Data ([facility]) Vital Signs (Past 12 Hours) Vital Signs Temp Pulse Resp BP BP Pulse Ox 06/30/19 15:52 36.6 C 112 H 18 103/65 90 06/30/19 11:50 35.7 C L 98 H 20 105/51 L 92 PG Care Time/CCT Total # of Minutes Spent Total Time Spent with Patient: Total time spent is greater than 50% in coordination of care (as documented) at patient's floor/unit and/or counseling patient: Coding Level of Care Code 47469 Subseq Hosp Care Lvl 2 Diagnoses Acute on chronic systolic (congestive) heart failure I50.23 Atrial fibrillation with RVR I48.91 Bilateral leg edema R60.0 Bronchitis J40 Weakness R53.1 Ambulatory dysfunction R26.2 Pacemaker Z95.0 Depression F32.9 Depression Type: unspecified Chronic kidney disease, stage IV (severe) N18.4 DVT prophylaxis Z29.9 Discharge planning issues Z02.9 Time Spent (min) 25 (1) Depression Depression Type: unspecified Qualified Code(s): F32.9 - Major depressive disorder, single episode, unspecified
[2019-07-01] MEDS: METOPROLOL TARTRATE 100 MG TAB PO SCH ×2 (08:42→20:58)
[2019-07-01] MEDS: CEROVITE ADV FORMULA TAB PO SCH ×2 (08:42→21:00)
[2019-07-01] MEDS: SACUBITRIL-VALSARTAN 24-26 MG TAB PO SCH (08:42)
[2019-07-01] MEDS: APIXABAN 2.5 MG TAB PO SCH ×2 (08:42→20:59)
[2019-07-01] MEDS: guaiFENesin 600 MG TABCR PO SCH ×2 (08:42→20:59)
[2019-07-01] MEDS: PANTOprazole 40 MG TAB PO SCH (08:42)
[2019-07-01] MEDS: allopurinoL 100 MG TAB PO SCH (08:42)
[2019-07-01] MEDS: EZETIMIBE 10 MG TABLET PO SCH (08:42)
[2019-07-01] MEDS: LORazepam 0.5 MG TAB PO SCH (20:54)
[2019-07-01] MEDS: SERTRALINE HCL 50 MG TABLET PO SCH (20:59)
--- NOTE | 2019-07-01 22:19 | Hospitalist Progress Note ---
Date of Service July 01, 2019 Assessment & Plan (1) Acute on chronic systolic (congestive) heart failure: Difficult to discern if her edema is from venous stasis/chronic, versus from predominantly right-sided CHF. I agree with previous provider that she does not appear to be decompensated left-sided CHF given that she does not show or examine like pulmonary edema, as she is not having significant orthopnea, and she is on room air. resumed lasix. Slowly titrate entresto up as tolerated. Given that she does not have palpitations, and given that her symptoms mostly seem to be that of leg swelling, I doubt that the A. fib is the problem as long as rate control stays reasonable. Follow closely otherwise. (2) Atrial fibrillation with RVR: Rates are now staying reasonably controlled, continue anticoagulation. (3) Bilateral leg edema: US doppler negative. Unclear baseline, but patient reports large difference over the last 3-4 weeks. Cardiology did note that she has relatively large legs at baseline. That said, in any acuity certainly could relate to her excess sodium intake which I educated her extensively about as far as how sodium leads to fluid retention, as well as some strategies on how to minimize salt intake. Set a goal of less than 1500 to 2000 mg. asked calender let off helper to help educate in this respect as well. (4) Bronchitis: Yellow sputum - suspect viral. No indication for antibiotics without suspected pertussis. Pro-Fransisco reassuring, chest x-ray yet again negative. Continue off of antibiotics. Supportive care. resolved. (5) Weakness: Generalized weakness/ambulatory dysfunction. 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 Appreciate pacemaker check by Dr Kee. (8) Depression: Continue sertraline 25 mg at bedtime. (9) Chronic kidney disease, stage IV (severe): continue to follow BMP closely titrate lasix/entresto (10) DVT prophylaxis: SCDs Started on lower dose of Eliquis given renal function and age 3/7. (11) Discharge planning issues: Continue med management as above, PT/OT eval and treat, stable for med/surg, rehab once bed available Awaiting insurance auth. Rehab was dneied after peer to peer review. SNF insurance auth required a peer to peer. Waiting determination. Admission and Anticipated Discharge Date Admission Date: June 21, 2019 Anticipated date of discharge: 06/28/19 Subjective Patient has no new symptoms. Review of Systems Review of Systems: All systems reviewed & are unremarkable except as noted in HPI & below Physical Exam Physical Exam: Constitutional: well developed; no acute distress Eyes: + anicteric sclerae; normal pupil size ENMT: external ear and nose normal, oropharynx normal Neck: trachea midline, no thyromegaly Respiratory: normal respiratory effort Auscultation: decreased bibasilar breath sounds. Cardiovascular: Rate/Rhythm: + tachycardic and + irregularly irregular Heart Sounds: no murmur Vessels: no JVD. Extremities: normal capillary refill and + pedal edema (2+ to knees, under stockings) Gastrointestinal (Abdomen): normal bowel sounds, soft, nontender, no hepatosplenomegaly Musculoskeletal: no cyanosis or clubbing, extremities motor strength 5/5 Skin: no rashes, warm and dry (no cellulitis) Neurologic: moves all extremities and awake; not confused Psychiatric: A+Ox3, euthymic affect Results & Data ([facility]) Vital Signs (Past 12 Hours) Vital Signs Temp Pulse Resp BP BP Pulse Ox 07/01/19 21:03 101 H 105/58 L 07/01/19 14:40 36.3 C L 95 H 20 93/56 L 95 PG Care Time/CCT Total # of Minutes Spent Total Time Spent with Patient: Total time spent is greater than 50% in coordination of care (as documented) at patient's floor/unit and/or counseling patient: Coding Level of Care Code 45335 Subseq Hosp Care Lvl 1 Diagnoses Acute on chronic systolic (congestive) heart failure I50.23 Atrial fibrillation with RVR I48.91 Bilateral leg edema R60.0 Bronchitis J40 Weakness R53.1 Ambulatory dysfunction R26.2 Pacemaker Z95.0 Depression F32.9 Depression Type: unspecified Chronic kidney disease, stage IV (severe) N18.4 DVT prophylaxis Z29.9 Discharge planning issues Z02.9 (1) Depression Depression Type: unspecified Qualified Code(s): F32.9 - Major depressive disorder, single episode, unspecified
[2019-07-02 07:01] LABS: Hematocrit (blood only) 32.9 % (37-47); Hemoglobin 10.8 g/dL (12.0-16.0); Mean Corpuscular Hemoglobin 29.7 pg (25-34); Mean Corpuscular Hgb Conc 32.8 g/dL (32-36); Mean Corpuscular Volume 90.4 fL (80-100); Mean Platelet Volume 9.3 fL (7.4-10.4); Platelet Count 246 K/uL (130-400); RDW Coefficient of Variation 15.2 % (11.5-14.5); Red Blood Count 3.64 M/uL (4.2-5.4); White Blood Count 7.98 K/uL (4.8-10.8)
[2019-07-02] MEDS: METOPROLOL TARTRATE 100 MG TAB PO SCH ×2 (09:21→20:24)
[2019-07-02] MEDS: CEROVITE ADV FORMULA TAB PO SCH ×2 (09:21→20:24)
[2019-07-02] MEDS: guaiFENesin 600 MG TABCR PO SCH ×2 (09:21→20:22)
[2019-07-02] MEDS: APIXABAN 2.5 MG TAB PO SCH ×2 (09:21→20:22)
[2019-07-02] MEDS: EZETIMIBE 10 MG TABLET PO SCH (09:21)
[2019-07-02] MEDS: PANTOprazole 40 MG TAB PO SCH (09:21)
[2019-07-02] MEDS: allopurinoL 100 MG TAB PO SCH (09:22)
[2019-07-02] MEDS: FUROSEMIDE 20 MG TAB PO SCH (10:24)
--- NOTE | 2019-07-02 18:51 | XRay Report ---
XR chest 2V PA/lateral CLINICAL HISTORY: cough/ bilateral rhonchi COMPARISON STUDY: 06/26/2019 FINDINGS: The heart is mildly enlarged. There is a left subclavian dual-chamber central venous pacema ker. There is no failure. There is no focal pulmonary consolidation. There are no significant pleural effusions.[ IMPRESSION: No active disease in the chest. ACT 112: Negative or not required by law. Electronically signed by: Duglas Gambino M.D. 07/02/2019 6:49 PM
[2019-07-02] MEDS: LORazepam 0.5 MG TAB PO SCH (20:21)
[2019-07-02] MEDS: SERTRALINE HCL 50 MG TABLET PO SCH (20:23)
[2019-07-02] MEDS: LEVALBUTEROL HCL 1.25 MG/3 ML NEB NEB SCH (20:33)
--- NOTE | 2019-07-02 22:15 | Hospitalist Progress Note ---
Date of Service July 02, 2019 Assessment & Plan (1) Acute on chronic systolic (congestive) heart failure: Difficult to discern if her edema is from venous stasis/chronic, versus from predominantly right-sided CHF. I agree with previous provider that she does not appear to be decompensated left-sided CHF given that she does not show or examine like pulmonary edema, as she is not having significant orthopnea, and she is on room air. resumed her home dose of lasix. Initiallly she was on entresto, but this will be switched to a low dose of lisinopril given that her BP was low. Will need to monitor her cough, May just be due to her viral illness that is resolving (this appears to be more likely). First dose of lisinopril will be on 07/01 (so this wouldn't explain cough.) Given that she does not have palpitations, and given that her symptoms mostly seem to be that of leg swelling, I doubt that the A. fib is the problem as long as rate control stays reasonable. Follow closely otherwise. order nebs x2 and chest x ray. Chest x-ray was negative. (2) Atrial fibrillation with RVR: Rates are now staying reasonably controlled, continue anticoagulation. (3) Bilateral leg edema: US doppler negative. Unclear baseline, but patient reports large difference over the last 3-4 weeks. Cardiology did note that she has relatively large legs at baseline. That said, in any acuity certainly could relate to her excess sodium intake which I educated her extensively about as far as how sodium leads to fluid retention, as well as some strategies on how to minimize salt intake. Set a goal of less than 1500 to 2000 mg. asked gas station service attendant to help educate in this respect as well. (4) Bronchitis: Yellow sputum - suspect viral. No indication for antibiotics without suspected pertussis. Pro-Fransisco reassuring, chest x-ray yet again negative. Continue off of antibiotics. Supportive care. resolved. (5) Weakness: Generalized weakness/ambulatory dysfunction. 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 Appreciate pacemaker check by Dr Kee. (8) Depression: Continue sertraline 25 mg at bedtime. (9) Chronic kidney disease, stage IV (severe): continue to follow BMP closely (10) DVT prophylaxis: SCDs Started on lower dose of Eliquis given renal function and age 3/7. (11) Discharge planning issues: Continue med management as above, PT/OT eval and treat, stable for med/surg, rehab once bed available Awaiting insurance auth. Rehab was dneied after peer to peer review. SNF insurance auth required a peer to peer. Denied, awaiting family appeal.. Admission and Anticipated Discharge Date Admission Date: June 21, 2019 Anticipated date of discharge: 06/28/19 Subjective Patient reports feeling well. She has no new complaints. She states she is nlonger coughing today, but did have a "bad" bout of coughing the previous night (06/30). Thankfully, she states this is no longer the case. Review of Systems Review of Systems: All systems reviewed & are unremarkable except as noted in HPI & below Physical Exam Physical Exam: Constitutional: well developed; no acute distress Eyes: + anicteric sclerae; normal pupil size ENMT: external ear and nose normal, oropharynx normal Neck: trachea midline, no thyromegaly Respiratory: normal respiratory effort Auscultation: decreased bibasilar breath sounds with bilateral rhonichi. Cardiovascular: Rate/Rhythm: + tachycardic and + irregularly irregular Heart Sounds: no murmur Vessels: no JVD. Extremities: normal capillary refill and + pedal edema (2+ to knees, under stockings) Gastrointestinal (Abdomen): normal bowel sounds, soft, nontender, no hepatosplenomegaly Musculoskeletal: no cyanosis or clubbing, extremities motor strength 5/5 Skin: no rashes, warm and dry (no cellulitis) Neurologic: moves all extremities and awake; not confused Psychiatric: A+Ox3, euthymic affect Results & Data ([facility]) Vital Signs (Past 12 Hours) Vital Signs Temp Pulse Resp BP BP Pulse Ox 07/02/19 20:21 110 H 111/64 07/02/19 15:49 36.7 C 106 H 18 114/65 95 PG Care Time/CCT Total # of Minutes Spent Total Time Spent with Patient: Total time spent is greater than 50% in coordination of care (as documented) at patient's floor/unit and/or counseling patient: Coding Level of Care Code 78662 Subseq Hosp Care Lvl 2 Diagnoses Acute on chronic systolic (congestive) heart failure I50.23 Atrial fibrillation with RVR I48.91 Bilateral leg edema R60.0 Bronchitis J40 Weakness R53.1 Ambulatory dysfunction R26.2 Pacemaker Z95.0 Depression F32.9 Depression Type: unspecified Chronic kidney disease, stage IV (severe) N18.4 DVT prophylaxis Z29.9 Discharge planning issues Z02.9 Time Spent (min) 25 (1) Depression Depression Type: unspecified Qualified Code(s): F32.9 - Major depressive disorder, single episode, unspecified
[2019-07-03] MEDS: LEVALBUTEROL HCL 1.25 MG/3 ML NEB NEB SCH (00:52)
[2019-07-03] MEDS: METOPROLOL TARTRATE 100 MG TAB PO SCH ×2 (08:46→20:15)
[2019-07-03] MEDS: allopurinoL 100 MG TAB PO SCH (08:46)
[2019-07-03] MEDS: EZETIMIBE 10 MG TABLET PO SCH (08:46)
[2019-07-03] MEDS: guaiFENesin 600 MG TABCR PO SCH ×2 (08:46→20:16)
[2019-07-03] MEDS: FUROSEMIDE 20 MG TAB PO SCH (08:46)
[2019-07-03] MEDS: CEROVITE ADV FORMULA TAB PO SCH ×2 (08:46→20:16)
[2019-07-03] MEDS: APIXABAN 2.5 MG TAB PO SCH ×2 (08:46→20:15)
[2019-07-03] MEDS: PANTOprazole 40 MG TAB PO SCH (08:46)
--- NOTE | 2019-07-03 16:46 | Hospitalist Progress Note ---
Date of Service July 03, 2019 Assessment & Plan (1) Acute on chronic systolic (congestive) heart failure: - Her lower extremity edema is probably multifactorial - has a lymphedema appearance but some may be from venous stasis/maybe some right-sided CHF -- Overall does not appear to have much decompensation of L sided CHF - minus her legs she seems rather euvolemic/maybe slightly hypovolemic - She had an initial good response to diuresis however feel this will give minimal benefit at this point and likely contributing to the lower BPs - will hold Lasix at this time - likely can continue this PRN on D/C as previously prescribed - She was trialed on Entresto - as given her low EF this could reduce afterload allowing better forward flow however was having lower BPs - this was stopped and she was converted to Lisinopril 2.5 mg daily however given her CKD and low BP will hold this - maybe in the future some titration could occur pending BP readings/monitoring - She is about 7 Kg down from admission - Cardiology following - discussed briefly with Dr. Milligan - appreciate any further adjustments/recommendations (2) Atrial fibrillation with RVR: - Rates improved from beginning of admission - still ranging from 90-110 - Currently on Metoprolol 100 mg BID - possibility of conversion to Toprol XL on D/C? - Was restarted on renal/age adjusted Apixaban 2.5 mg BID this admission - no signs of bleeding (3) Bilateral leg edema: - U/S doppler negative for DVT - Appears baseline lower extremity edema - patient reporting the seemed improved since admission; may partially be due to dietary indiscretion however she does live at home alone and does report processed food intake given ease of prep - Discussed if she utilizes stockings however states she can't do this at home due to inability to put them on/off herself (4) Bronchitis: - IMPROVING - Reports her cough is lessening and denies SOB - Recent CXR negative for pneumonia; procalcitonin negative - no indication for Abx at this time (5) Weakness: - Likely multifactorial - Continue PT/OT - awaiting appeal process for SNF, patient is ambulating floors but reports multiple steps to get into her place and fatigues very easily (6) Ambulatory dysfunction: - As above (7) 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 Miller (8) Depression: - Continue sertraline 25 mg at bedtime. (9) Chronic kidney disease, stage IV (severe): - STABLE - baseline appears around 1.7 - Was higher during admission and possibly related to diuresis - Continue to monitor; avoid nephrotoxic agens (10) Discharge planning issues: -- Awaiting appeal for SNF - patient lives alone and multiple providers have expressed concern for her ability to independently care for herself adequately; especially in the setting of increased weakness/fatigue - Peer to peers have been denied; awaiting appeal Disposition: Will monitor BP now with medications adjustments; Await decision for safe disposition Admission and Anticipated Discharge Date Admission Date: June 21, 2019 Subjective Reports feeling well today. Feels that her legs are less edematous today. She also feels like your cough is improving and nursing reports her lungs sound better today compared to yesterday. She did have a lower BP this morning however asymptomatic. Reviewed her medications and she has had a few changes. Discussed with her mail processing equipment mechanic Dr. Milligan. Will continue the Metoprolol but will remove the ACEI; will hold Lasix right now as she does not appear in overt failure. She does endorse some weakness and awaiting to see if rehab will be approved. Review of Systems Constitutional: no fever and no chills Respiratory: + cough (improving); no dyspnea Cardiovascular: + edema (chronic - b/l legs but improving); no chest pain and no lightheadedness Gastrointestinal: no abdominal pain, no nausea, no vomiting, no constipation and no diarrhea/loose stools Genitourinary: no dysuria Integumentary: no rash Physical Exam Constitutional: WD/WN, vitals as above Eyes: + anicteric sclerae Neck: trachea midline Respiratory: normal respiratory effort Auscultation: + crackles (minimal in bases - seems to improve with further deep breaths); no wheezes Cardiovascular: Rate/Rhythm: regular rate and + irregularly irregular b/l lower extremity edema most prevelant in ankles/shins and non-pitting - more of a lymphedema appearance Gastrointestinal (Abdomen): Inspection/Auscultation: normal bowel sounds Percussion/Palpation: abdomen soft; abdomen nontender Musculoskeletal: Head/Neck/Chest: normocephalic and head atraumatic Skin: no rashes, warm and dry Neurologic: moves all extremities Psychiatric: A+Ox3, euthymic affect Results & Data ([facility]) Vital Signs (Past 12 Hours) Vital Signs Temp Pulse Resp BP Pulse Ox 07/03/19 11:22 36.3 C L 109 H 16 95/56 L 96 07/03/19 07:12 36.6 C 108 H 16 119/74 95 PG Care Time/CCT Total # of Minutes Spent Total Time Spent with Patient: Total time spent is greater than 50% in coordination of care (as documented) at patient's floor/unit and/or counseling patient: Coding Level of Care Code 45041 Subseq Hosp Care Lvl 2 Diagnoses Acute on chronic systolic (congestive) heart failure I50.23 Atrial fibrillation with RVR I48.91 Bilateral leg edema R60.0 Bronchitis J40 Weakness R53.1 Ambulatory dysfunction R26.2 Pacemaker Z95.0 Depression F32.9 Depression Type: unspecified Chronic kidney disease, stage IV (severe) N18.4 Discharge planning issues Z02.9 (1) Depression Depression Type: unspecified Qualified Code(s): F32.9 - Major depressive disorder, single episode, unspecified
[2019-07-03] MEDS: LORazepam 0.5 MG TAB PO SCH (20:15)
[2019-07-03] MEDS: SERTRALINE HCL 50 MG TABLET PO SCH (20:16)
[2019-07-04] MEDS: APIXABAN 2.5 MG TAB PO SCH ×2 (08:05→20:13)
[2019-07-04] MEDS: guaiFENesin 600 MG TABCR PO SCH ×2 (08:05→20:14)
[2019-07-04] MEDS: allopurinoL 100 MG TAB PO SCH (08:05)
[2019-07-04] MEDS: METOPROLOL TARTRATE 100 MG TAB PO SCH ×2 (08:05→20:13)
[2019-07-04] MEDS: EZETIMIBE 10 MG TABLET PO SCH (08:05)
[2019-07-04] MEDS: CEROVITE ADV FORMULA TAB PO SCH ×2 (08:05→20:14)
[2019-07-04] MEDS: PANTOprazole 40 MG TAB PO SCH (08:05)
[2019-07-04 09:00] LABS: Hematocrit (blood only) 34.8 % (37-47); Hemoglobin 11.5 g/dL (12.0-16.0); Mean Corpuscular Volume 90.9 fL (80-100); Mean Platelet Volume 9.6 fL (7.4-10.4); Platelet Count 270 K/uL (130-400); RDW Standard Deviation 49.5 fL (36.4-46.3); Red Blood Count 3.83 M/uL (4.2-5.4); White Blood Count 7.33 K/uL (4.8-10.8)
[2019-07-04 09:24] LABS: BUN Creatinine Ratio 30.1 (10-20); Calcium 9.1 mg/dl (8.5-10.1); Est GFR (African American) 27.4; Est GFR (Non-African American) 23.6; Potassium 4.2 mmol/L (3.5-5.1)
--- NOTE | 2019-07-04 16:20 | Hospitalist Progress Note ---
Date of Service July 04, 2019 Assessment & Plan (1) Acute on chronic systolic (congestive) heart failure: - Her lower extremity edema is probably multifactorial - has a lymphedema appearance but some may be from venous stasis/maybe some right-sided CHF -- Overall does not appear to have much decompensation of L sided CHF - minus her legs she seems rather euvolemic - She had an initial good response to diuresis however feel this will give minimal benefit at this point and likely contributing to the lower BPs - will hold Lasix at this time - likely can continue this PRN on D/C as previously prescribed - She was trialed on Entresto - as given her low EF this could reduce afterload allowing better forward flow however was having lower BPs - this was stopped and she was converted to Lisinopril 2.5 mg daily however given her CKD and low BP will hold this - maybe in the future some titration could occur pending BP readings/monitoring - She is about 7 Kg down from admission - Cardiology following - - appreciate any further adjustments/recommendations (2) Atrial fibrillation with RVR: - Rates improved from beginning of admission - still ranging from 90-110 denies symptoms with this - Currently on Metoprolol 100 mg BID - will convert to Toprol XL 100 mg BID as a little hesitant to do 200 mg daily given the BP however if BP stays stable with monitoring can continue - Was restarted on renal/age adjusted Apixaban 2.5 mg BID this admission - no signs of bleeding (3) Bilateral leg edema: - U/S doppler negative for DVT - Appears baseline lower extremity edema - patient reporting the seemed improved since admission; may partially be due to dietary indiscretion however she does live at home alone and does report processed food intake given ease of prep - Discussed if she utilizes stockings however states she can't do this at home due to inability to put them on/off herself (4) Bronchitis: - IMPROVING - Reports her cough is lessening and denies SOB - Recent CXR negative for pneumonia; procalcitonin negative - no indication for Abx at this time (5) Weakness: - Likely multifactorial - Continue PT/OT - awaiting appeal process for SNF, patient is ambulating floors but reports multiple steps to get into her place and fatigues very easily (6) Ambulatory dysfunction: - As above (7) 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 Miller (8) Depression: - Continue sertraline 25 mg at bedtime. (9) Chronic kidney disease, stage IV (severe): - STABLE - baseline appears around 1.7 - Was higher during admission and possibly related to diuresis - Continue to monitor; avoid nephrotoxic agens (10) Discharge planning issues: - Approved for rehab and planning on D/C tomorrow to [facility] Admission and Anticipated Discharge Date Admission Date: June 21, 2019 Anticipated date of discharge: 06/28/19 Subjective Reports feeling well today. Reports cough seems to be improving and no complaints of SOB. Continues with lower extremity edema. She was approved for a short rehab stay and [facility] can accept tomorrow. BP improved today. HR staying mostly low 100s and asymptomatic. BP limiting much titration. Will convert to Toprol XL and trial this BID and if tolerated can likely convert to daily dosing just want to be cautious with BP. Review of Systems Constitutional: no fever and no chills Respiratory: + cough; no dyspnea Cardiovascular: + edema; no chest pain, no palpitations and no lightheadedness Gastrointestinal: no abdominal pain, no nausea, no vomiting, no constipation and no diarrhea/loose stools Genitourinary: no dysuria Musculoskeletal: no body aches Integumentary: no rash Physical Exam Constitutional: WD/WN, vitals as above Eyes: + anicteric sclerae Neck: trachea midline Respiratory: normal respiratory effort Auscultation: + diminished lung sounds Cardiovascular: Rate/Rhythm: regular rate and + irregularly irregular Gastrointestinal (Abdomen): Inspection/Auscultation: normal bowel sounds Percussion/Palpation: abdomen soft; abdomen nontender Musculoskeletal: Head/Neck/Chest: normocephalic and head atraumatic Skin: no rashes, warm and dry Neurologic: moves all extremities Psychiatric: A+Ox3, euthymic affect Results & Data ([facility]) Vital Signs (Past 12 Hours) Vital Signs Temp Resp BP Pulse Ox 07/04/19 07:07 36.5 C 20 124/75 95 PG Care Time/CCT Total # of Minutes Spent Total Time Spent with Patient: Total time spent is greater than 50% in coordination of care (as documented) at patient's floor/unit and/or counseling patient: Coding Level of Care Code 05137 Subseq Hosp Care Lvl 2 Diagnoses Acute on chronic systolic (congestive) heart failure I50.23 Atrial fibrillation with RVR I48.91 Bilateral leg edema R60.0 Bronchitis J40 Weakness R53.1 Ambulatory dysfunction R26.2 Pacemaker Z95.0 Depression F32.9 Depression Type: unspecified Chronic kidney disease, stage IV (severe) N18.4 Discharge planning issues Z02.9 (1) Depression Depression Type: unspecified Qualified Code(s): F32.9 - Major depressive disorder, single episode, unspecified
[2019-07-04] MEDS: SERTRALINE HCL 50 MG TABLET PO SCH (20:14)
[2019-07-04] MEDS ORDERED: DIGOXIN 0.125 MG TAB PO ONE (20:15)
[2019-07-04] MEDS: LORazepam 0.5 MG TAB PO SCH (20:17)
[2019-07-05] MEDS: allopurinoL 100 MG TAB PO SCH (07:55)
[2019-07-05] MEDS: EZETIMIBE 10 MG TABLET PO SCH (07:55)
[2019-07-05] MEDS: CEROVITE ADV FORMULA TAB PO SCH (07:55)
[2019-07-05] MEDS: guaiFENesin 600 MG TABCR PO SCH (07:55)
[2019-07-05] MEDS: PANTOprazole 40 MG TAB PO SCH (07:55)
[2019-07-05] MEDS: APIXABAN 2.5 MG TAB PO SCH (07:55)
[2019-07-05 08:07] LABS: Hematocrit (blood only) 34.1 % (37-47); Hemoglobin 11.2 g/dL (12.0-16.0); Mean Corpuscular Hemoglobin 29.6 pg (25-34); Mean Corpuscular Hgb Conc 32.8 g/dL (32-36); Mean Corpuscular Volume 90.2 fL (80-100); Mean Platelet Volume 9.6 fL (7.4-10.4); Platelet Count 262 K/uL (130-400); RDW Standard Deviation 49.4 fL (36.4-46.3); Red Blood Count 3.78 M/uL (4.2-5.4); White Blood Count 7.05 K/uL (4.8-10.8)
[2019-07-05 08:36] LABS: BUN Creatinine Ratio 35.4 (10-20); Calcium 9.2 mg/dl (8.5-10.1); Creatinine Clr Calc Pharmacy 24.2 ml/min; Est GFR (African American) 32.5; Potassium 4.5 mmol/L (3.5-5.1)
[2019-07-05] MEDS ORDERED: METOPROLOL SUCC 50MG EXT REL TAB PO SCH (09:00)
--- NOTE | 2019-07-05 10:05 | Discharge Summary ---
Date of Service July 05, 2019 Admission HPI Per Admitting Provider The patient is an 83-year-old female with a past medical history including CKD, generalized weakness, UTI, atrial fibrillation, status post pacemaker, history of GI bleed, ambulatory dysfunction, dizziness, rib fractures, osteoarthritis and gouty arthritis. She presents to the emergency department with symptoms as noted above. She denies any dysfunctionality of her colostomy bag which was placed secondary to diverticulitis. Of note, the patient lives by herself, which may need to be assessed if appropriate prior to discharge. Principal Diagnosis Bronchitis/A Fib RVR Discharge Exam Constitutional WD/WN, vitals as above Eyes + anicteric sclerae Neck trachea midline Respiratory normal respiratory effort Auscultation: + diminished lung sounds Cardiovascular Rate/Rhythm: regular rate and + irregularly irregular Gastrointestinal (Abdomen) Inspection/Auscultation: normal bowel sounds Percussion/Palpation: abdomen soft; abdomen nontender Musculoskeletal Head/Neck/Chest: normocephalic and head atraumatic Skin no rashes, warm and dry Neurologic moves all extremities Psychiatric A+Ox3, euthymic affect Discharge Data Allergies Allergy/AdvReac Type Severity Reaction Status Date / Time Iodinated Contrast Media Allergy Severe Difficulty Verified 06/20/19 20:50 Breathing, Severe Hives Sulfa (Sulfonamide Allergy Mild . Verified 06/20/19 20:50 Antibiotics) cephalexin Allergy Unknown Unknown Verified 06/20/19 20:50 diphenhydramine Allergy Unknown DOES NOT Verified 06/20/19 20:50 REMEMBER potassium chloride Allergy Unknown unknown Verified 06/20/19 20:50 MUSHROOMS Allergy Unknown . Uncoded 06/20/19 20:50 Consultations 06/20/19 21:07 ED Decision to Admit Stat 06/21/19 03:45 Consult Case Management - Discharge Planning Routine 06/21/19 16:33 Consult Cardiology Routine Ordered Studies 06/21/19 19:17 US venous doppler [facility] Urgent Hospital Course (1) Acute on chronic systolic (congestive) heart failure: - Her lower extremity edema is probably multifactorial - has a lymphedema appearance but some may be from venous stasis/maybe some right-sided CHF -- Overall does not appear to have much decompensation of L sided CHF - minus her legs she seems rather euvolemic - She had an initial good response to diuresis however feel this will give minimal benefit at this point and likely contributing to the lower BPs - will continue this PRN on D/C as previously prescribed - She was trialed on Entresto - as given her low EF this could reduce afterload allowing better forward flow however was having lower BPs - this was stopped and she was converted to Lisinopril 2.5 mg daily however given her CKD and continued low BP will hold this - maybe in the future some titration could occur pending BP readings/monitoring - She is about 7 Kg down from admission - Cardiology followed - - appreciate any further adjustments/recommendations and outpatient F/U (2) Atrial fibrillation with RVR: - Rates improved from beginning of admission - still ranging from 90-110 denies symptoms with this - Currently on Metoprolol 100 mg BID - will convert to Toprol XL 100 mg BID as a little hesitant to do 200 mg daily given the BP however if BP stays stable with monitoring can convert possibly to the daily dosing - There were talks of possible [place] [facility] [place] they were [place] however would defer to her primary sole stapler welt - Did add Digoxin 0.125 mg Wednesday, , Wednesday with BMP and Dig level in 2 weeks - Was restarted on renal/age adjusted Apixaban 2.5 mg BID this admission - no signs of bleeding - discussed this with patient and daughter (3) Bilateral leg edema: - U/S doppler negative for DVT - Appears baseline lower extremity edema - patient reporting the seemed improved since admission; may partially be due to unintentional dietary indiscretion however she does live at home alone and does report processed food intake given ease of prep - discussed possibly adding frozen microwaveable vegetables to remove some processed foods - Discussed if she utilizes stockings however states she can't do this at home due to inability to put them on/off herself (4) Bronchitis: - IMPROVING - Reports her cough is lessening and denies SOB; had limited benefit from steroids or duonebs - could consider PRN albuterol in the future if needed - Recent CXR negative for pneumonia; procalcitonin negative - no indication for Abx at this time (5) Weakness: - Likely multifactorial - going to [facility] for rehab (6) Ambulatory dysfunction: - As above (7) 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 Miller (8) Depression: - Continue sertraline 25 mg at bedtime. (9) Chronic kidney disease, stage IV (severe): - STABLE - baseline appears around 1.7 - Was higher during admission and possibly related to diuresis (10) Discharge planning issues: - Approved for rehab and planning on D/C tomorrow to [facility]. Recommend PCP and Cardiology F/U Total Time Total Time Spent Total Time Spent (In Minutes): Greater than 30 minutes Discharge Plan Discharge Items Patient Disposition[facility] Reason For Visit: ACUTE RESP FAILURE W/ HYPOXIA, CHF, BRONCHITIS Discharge Diagnosis: Bronchitis; Atrial Fibrillation with RVR Activity: Resume your previous activity Non-emergency contact: Primary Care Provider Call non-emergency contact if: you have any medication questions, your symptoms worsen and you have a fever Follow-up/Referrals: Darío Milligan DO [Family Provider] - (Follow-up in 2-3 weeks) Patti James MD [Primary Care Provider] - (Prefer to be seen in 7-10 days if possible) Diet: Heart Healthy Addtl Attending Provider Instructions: Acute on chronic systolic (congestive) heart failure: - Her lower extremity edema is probably multifactorial - has a lymphedema appearance but some may be from venous stasis/maybe some right-sided CHF -- Overall does not appear to have much decompensation of L sided CHF - minus her legs she seems rather euvolemic - She had an initial good response to diuresis however feel this will give minimal benefit at this point and likely contributing to the lower BPs -- She is on PRN Lasix at home and would recommend that at this time given her renal function and likely daily use will dry her out more then lessen the swelling of the legs -- Recommend daily weights and monitoring output - She is about 7 Kg down from admission - Cardiology followed - recommend follow-up with Dr. Milligan in 2-3 weeks if able Atrial fibrillation with RVR: - Rates improved from beginning of admission - still ranging from 90-105 denies symptoms with this. Her HRs have been running like this and higher on pacemaker interrogation. Some changes have been made in regards to her medications to control this however some limitations due to normal/low normal blood pressures - Her beta william was titrated up and converted to Toprol XL 100 mg twice a day. Normally this is dosed daily but recommend monitoring blood pressure with this twice daily first as I would not want to cause a drop in blood pressure with once daily dosing. If this is tolerated moving to a Toprol XL 200 mg daily dose would be warranted. - She was resumed on Apixaban 2.5 mg twice a day (adjusted for renal/age) and tolerating. She has a history of hemarthosis but no issues so far with bleeding.. - There have been discussions about possible need for cardioversion in the future as it is possible she just doesn't tolerate this rhythm as well. Anticoagulation would help to safely do this if it is needed in the future. - Also started Digoxin 0.125 mg on Wednesday, , and Wednesday. Recommend digoxin level and BMP in two weeks to assess. Bilateral leg edema: - U/S doppler negative for DVT - Appears baseline lower extremity edema - patient reporting the seemed improved since admission; may partially be due to dietary indiscretion however she does live at home alone and does report processed food intake given ease of prep - Discussed if she utilizes stockings however states she can't do this at home due to inability to put them on/off herself but this would likely help Bronchitis: - IMPROVING - Reports her cough is lessening and denies SOB - Recent CXR negative for pneumonia; procalcitonin negative - no indication for Abx at this time - Had little response with Nebs/steroids. If needed could consider as needed Albuterol inhaler if wheezing would occur Weakness: - Likely multifactorial - Planning on rehab prior to return home. 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 Miller Depression: - Continue sertraline 25 mg at bedtime. Chronic kidney disease, stage IV (severe): - STABLE - baseline appears around 1.7 - Was higher during admission and possibly related to diuresis but stabilized - BMP in 2 weeks given addition of digoxin Disposition: - Recommend PCP F/U in 7-10 days if possible given closures as she does have multiple comorbidities - Recommend Dr. Milligan F/U in 2-3 weeks - Recommend Digoxin level and BMP in 2 weeks Pending Studies at Discharge: No Stand-Alone Forms: My [facility] Skilled Items Patient informed of condition?: Yes DNR: No Discharge Level of Care: Skilled Communicable Disease: No Discharge Prognosis: Stable Lines: None Urinary Catheter: No Medications and DC Order Prescriptions: New metoprolol succinate 50 mg Tablet Extended Release 24 Hr 100 mg PO BID 30 Days Qty: 120 RF: 0 Eliquis 2.5 mg Tablet 2.5 mg PO BID 30 Days Qty: 60 RF: 0 digoxin 125 mcg (0.125 mg) tablet 125 mcg PO DIRECTED 30 Days Qty: 12 RF: 0 lorazepam 0.5 mg tablet 0.5 mg PO HS 3 Days Qty: 3 RF: 0 Continued furosemide 20 mg tablet 20 mg PO DAILY PRN (Reason: Swelling) RF: 0 allopurinol 100 mg tablet 100 mg PO QAM RF: 0 omeprazole 20 mg capsule,delayed release(DR/EC) 20 mg PO QAM RF: 0 ezetimibe 10 mg tablet 10 mg PO QAM RF: 0 sertraline 50 mg tablet 25 mg PO HS RF: 0 meclizine 12.5 mg Tablet 12.5 mg PO Q6H PRN (Reason: Dizziness) RF: 0 Centrum Silver Women 8 mg iron-400 mcg-300 mcg Tablet 1 tab PO QAM RF: 0 PreserVision AREDS-2 [id number] Capsule 1 tab PO BID RF: 0 nitroglycerin [Nitrostat] 0.4 mg Tablet, Sublingual 0.4 mg sublingual DIRECTED PRN (Reason: Chest Pain) RF: 0 artificial tears(hypromellose) 0.3 % Drops 1 drp OPHTHALMIC (EYE) QID PRN (Reason: Dry Eye(S)) RF: 0 Discontinued metoprolol tartrate 25 mg tablet 25 mg PO BID RF: 0 Multaq 400 mg tablet 400 mg PO BID RF: 0 Discharge Orders: Discharge Order (Routine); Ordered 07/05/19 Ordered By: Petra Moody Admission Data Admit Date/Time: 06/21/19 00:59 Attending Provider: Alessandro Norton Admit Provider: López Morrison Primary Care Provider: Patti James Other Providers: [facility] ; Adalid Lambert ; López Morrison ; Darío Milligan ; Shelly Archer [facility] Other Interventions: Discharge Summary Assessment (RN) Last Done: 07/05/19 10:10 DC Date/Time DO NOT enter until pt leaves facility: 07/05/19 10:54 Supervising Physician Co-Signing Physician Notes Attending note: patient seen and examined with Petra Moody PA-C. I agree with her discharge summary. I personally reviewed the labs and imaging findings. patient doing well, breathing comfortably, eating well HR in the 90-100 range, appreciate cardiology input ready to go to SNF - Atrial fibrillation, periods of RVR: d/c on Digoxin and Toprol 100mg BID, HR in the 90-100 range, follow up closely with cardiology - Acute on chronic systolic heart failure: resolved with aggressive diuresis, examines euvolemic Coding Level of Care Code D/C Day Management >30 mins Diagnoses Acute on chronic systolic (congestive) heart failure I50.23 Atrial fibrillation with RVR I48.91 Bilateral leg edema R60.0 Bronchitis J40 Weakness R53.1 Ambulatory dysfunction R26.2 Pacemaker Z95.0 Depression F32.9 Depression Type: unspecified Chronic kidney disease, stage IV (severe) N18.4 Discharge planning issues Z02.9
== END 2019-07-05 10:54 | DRG 291 ==
LOC: ED 17:52 → 2S 06-21 00:59 → SUATTDRO 06-21 00:59 → 2S 06-21 03:14 → 2N 06-27 13:58 → 2W 06-29 10:34

== ENCOUNTER 2019-10-06 11:04 | Inpatient (IN) ==
[2019-10-06] MEDS ORDERED: ACETAMINOPHEN 500 MG TAB PO STA (11:52)
--- NOTE | 2019-10-06 12:28 | XRay Report ---
XR ankle RT min 3V routine CLINICAL HISTORY: pain fall trauma. Pain. COMPARISON: None. DISCUSSION: Generalized osteopenia/osteoporosis. Oblique nondisplaced fracture distal fibular shaft. Ankle mortise is aligned anatomically. Generalized soft tissue edema. Heel spur. IMPRESSION: 1. Oblique nondisplaced fracture distal fibular shaft. 2. Heel spur. 3. Generalized soft tissue edema. ACT 112: Negative or not required by law. The above report was generated using voice recognition software. It may contain grammatical, syntax or spelling errors. Electronically signed by: Max Alatorre M.D. 10/06/2019 12:27 PM
--- NOTE | 2019-10-06 12:30 | XRay Report ---
XR tibia fibula RT 2V CLINICAL HISTORY: pain fall COMPARISON: None. DISCUSSION: Nondisplaced oblique fracture distal fibular shaft. All remaining bony structures are neg ative for an additional acute bony abnormality. Generalized soft tissue edematous change. Degenerative change of the knee as well as ankle. IMPRESSION: 1. Oblique fracture distal fibular shaft considered nondisplaced. 2. Moderate generalized soft tissue edema. ACT 112: Negative or not required by law. The above report was generated using voice recognition software. It may contain grammatical, syntax or spelling errors. Electronically signed by: Max Alatorre M.D. 10/06/2019 12:28 PM
--- NOTE | 2019-10-06 13:46 | History & Physical Report ---
Date of Service October 06, 2019 Assessment & Plan (1) Nondisplaced fracture of right fibula: - Admit to med surg - Imaging reviewed showing RLE nondisplaced distal fibular fracture - Ortho consulted for splinting/immobilizer, patient reports she would not want surgical procedure if possible - Pain control with tylenol aneudy, tramadol 5- mg Q4H and morphine 2 mg IV prn - Bowel regimen - Checking cbc and bmp now (2) Systolic CHF, chronic: - Appears euvolemic, no changes in weight - Edema in the RLE appears to be due to acute trauma and fracture, nonpitting, LLE without significant pitting edema - last Echo 06/22/2019 with EF =30 to 35%, moderate concentric LVH, moderate MR, severe TR, mild pulmonic insufficiency, trace aortic regurg - Continue metoprolol succinate 100 mg BID, digoxin 125 mcg TuThSat (3) Atrial fibrillation: -Permanent, rate controlled on admission -Continue rate controlling agents including digoxin and metoprolol as above -Anticoagulated on Eliquis (4) Pacemaker: - Follows with Dr. Miller as outpatient - [employer] versa model, last check was in June 2019, battery longevity was 5.5 years at the time (5) Chronic kidney disease, stage IV (severe): - appears her baseline is 1.6-1.9 - Checking BMP now (6) Depression: -History of such, continue Zoloft 25 mg HS, very anxious on exam, consider sleep aid this evening (7) Osteoarthritis: -Noted, stable (8) Gouty arthritis: -Noted, continue allopurinol 100 mg daily (9) Ambulatory dysfunction: -PT/OT consults -Uses a walker at baseline, fall precautions, as above (10) DVT prophylaxis: -Eliquis 2.5 mg BID CODE: DNR Dispo: From home, likely to remain in the hospital x 1-2 days. Called both daughters and left messages, will try again later today. Left main hospital number on both voice mail. History of Present Illness Primary Care Provider: Patti James MD This is an 84 yo F with PMhx of CKD, generalized weakness, UTI, atrial fibrillation, status post pacemaker, history of GI bleed, ambulatory dysfunction, dizziness, rib fractures, osteoarthritis and gouty arthritis who presents 3 days after a fall she sustained while trying to get out of bed. She reports today her pain was so bad, that she couldn't walk and called EMS. In the past 3 days she has taken tylenol for pain relief. Today she was scheduled to see her PCP at [facility], but was unable to due to pain. She has been using a walker at baseline to get about her home, lives alone, and has a cleaning person come in every other week. She denies any other acute complaints but wants to eat something as she is starving, and would like her daughters to be made aware that she is here. Allergies Allergy/AdvReac Type Severity Reaction Status Date / Time Iodinated Contrast Media Allergy Severe Difficulty Verified 10/06/19 13:25 Breathing, Severe Hives Sulfa (Sulfonamide Allergy Mild . Verified 10/06/19 13:25 Antibiotics) cephalexin Allergy Unknown Unknown Verified 10/06/19 13:25 diphenhydramine Allergy Unknown DOES NOT Verified 10/06/19 13:25 REMEMBER potassium chloride Allergy Unknown unknown Verified 10/06/19 13:25 mushroom Allergy Unknown Verified 10/06/19 15:49 Home Medications Home Medications Medication Instructions Recorded Confirmed Type Centrum Silver Women 1 tab PO QAM 06/20/19 10/06/19 History PreserVision AREDS-2 1 tab PO BID 06/20/19 10/06/19 History allopurinol 100 mg PO QAM 06/20/19 10/06/19 History artificial tears(hypromellose) 1 drp OPB QID PRN 06/20/19 10/06/19 History nitroglycerin [Nitrostat] 0.4 mg SUBLINGUAL DIRECTED PRN 06/20/19 10/06/19 History omeprazole 20 mg PO QAM 06/20/19 10/06/19 History lorazepam 0.5 mg PO HS 3 Days #3 tab 07/05/19 10/06/19 Rx apixaban [Eliquis] 2.5 mg PO BID 10/06/19 10/06/19 History digoxin 125 mcg PO TUTHSA 10/06/19 10/06/19 History furosemide 20 mg PO DAILY PRN 10/06/19 10/06/19 History metoprolol succinate 100 mg PO BID 10/06/19 10/06/19 History sertraline 25 mg PO HS 10/06/19 10/06/19 History Past Med/Surg History Medical History Abnormal stress test Ambulatory dysfunction (Acute) Atrial fibrillation (Acute 04/24/13) Chest pain Contusion of left hip (Acute) Degenerative arthritis of knee (Acute 03/16/14) Depression Dizziness (Acute) DJD (degenerative joint disease) (Acute) GI bleed (Acute) Gouty arthritis (Acute) Head trauma (Acute) Headache (Acute) Hemarthrosis (Acute) Hip hematoma, left (Acute) Left knee DJD (Acute) Left knee pain (Acute) Osteoarthritis (Acute) Pacemaker (Resolved) Rib fracture (Acute) Right rib fracture (Acute) Scalp hematoma (Acute) UTI (urinary tract infection) (Acute) Weakness (Acute) Social History Preferred Language: Danish Communication Ability: Effective Environmental Health Aide Required: No Beliefs That Will Affect Care: None Current Living Situation: Alone Other Information That Helps Us Care for You: Yes Feels Safe at Home: Yes Safety Concerns: Feels Safe At This Time Smoking Status: Never smoker Hx Alcohol Use: No Hx Substance Use: No Review of Systems Review of Systems: Constitutional: No fever, sweats or chills Eyes: No diplopia, no worsening or blurred vision ENT: normal hearing, no trouble swallowing Respiratory: No cough, sputum, dyspnea at rest or on exertion Cardiovascular: No chest pain, tightness or palpitations Abdomen: No pain, nausea, vomiting, diarrhea or constipation Musculoskeletal: + RLE pain in foot and ankle, increased bruising and swelling, + toenails long and requested cutting, Otherwise no calf pain, swelling Neurologic: No weakness, + RLE numbness compared to the left, uses a walker at baseline, + falls Psychiatric: No anxiety or depression Skin: No rash or itch Physical Exam Physical Exam: General: awake, alert, tearful at times and anxious throughout exam Head: Normocephalic, atraumatic ENT: PERRL, EOMI, no pharyngeal exudate, mucous membranes moist Chest: Clear to auscultation, on room air, no adventitious breath sounds Cardiac: Irregularly irregular, + JAMAAL, no JVD, normal peripheral pulses, good capillary refill Abdominal: NABS x 4 quadrants, soft, nondistended, + colostomy LLQ, nontender to palpation, no rebound, guarding or tenderness Extremities: +RLE with increased erythema and edema involving the foot, ankle and up middle of the calf, tenderness with palpation, nonpitting edema, + toe nails are long, Otherwise normal inspection, no peripheral edema or erythema, calfs nontender to palpation Psych: anxious mood and tearful affect Neuro: AAO x 3, strength intact bilaterally in LE and rated 4/5 BLE, 3/4 in RLE ankle and foot, no gross motor deficits, speech is clear, + sensory deficit in RLE to light touch Results & Data Results & Data ([facility]) Vital Signs (Past 12 Hours) Vital Signs Temp Pulse Resp BP Pulse Ox 10/06/19 13:01 104 H 21 133/90 96 10/06/19 13:00 102 H 20 98 10/06/19 12:31 101 H 18 145/89 H 96 10/06/19 12:30 101 H 24 97 10/06/19 12:01 101 H 18 133/99 96 10/06/19 12:00 95 H 14 96 10/06/19 11:31 101 H 12 136/81 98 10/06/19 11:30 96 H 23 97 10/06/19 11:08 37.3 C 109 H 20 143/86 H 98 10/06/19 11:07 103 H 22 97 10/06/19 11:05 110 H 19 143/86 H 98 Diagnostic Findings XR ankle RT min 3V routine CLINICAL HISTORY: pain fall trauma. Pain. COMPARISON: None. DISCUSSION: Generalized osteopenia/osteoporosis. Oblique nondisplaced fracture distal fibular shaft. Ankle mortise is aligned anatomically. Generalized soft tissue edema. Heel spur. IMPRESSION: 1. Oblique nondisplaced fracture distal fibular shaft. 2. Heel spur. 3. Generalized soft tissue edema. ACT 112: Negative or not required by law. The above report was generated using voice recognition software. It may contain grammatical, syntax or spelling errors. Electronically signed by: Max Alatorre M.D. 10/06/2019 12:27 PM XR tibia fibula RT 2V CLINICAL HISTORY: pain fall COMPARISON: None. DISCUSSION: Nondisplaced oblique fracture distal fibular shaft. All remaining bony structures are negative for an additional acute bony abnormality. Generalized soft tissue edematous change. Degenerative change of the knee as well as ankle. IMPRESSION: 1. Oblique fracture distal fibular shaft considered nondisplaced. 2. Moderate generalized soft tissue edema. ACT 112: Negative or not required by law. The above report was generated using voice recognition software. It may contain grammatical, syntax or spelling errors. Electronically signed by: Max Alatorre M.D. 10/06/2019 12:28 PM Code Status & VTE Plan Code Status DNR - discussed with pt at bedside Supervising Physician Co-Signing Physician Notes I personally saw and examined the patient. I verified all rodriguez points and agree with KEENA Webster with the following exceptions and/or additions: 84 yo F well known to me from her last admission in June for CHF. Distal fibula # after falling out of bed 2 nights previously. Unable to currently manage at home and possible need for placement. O/E Chest CTAB, HS Irregularly irregular rhythm, regular rate, systolic ejection murmur present, 2+ b/l LE swelling (similar to previous in June), ecchymosis around lateral ankle, NV intact distally. Skin intact. A/P Distal fib # - suspect conservative management, consult orthopedics Chronic CHF - previously weight decreased from 82 to 75kg with diuresis and mildly improved rate control last admission with addition of digoxin and metoprolol succinate. Will likely need some lasix dosing in AM but will defer this to next physician after repeating BMP in AM as her leg edema is mostly felt to be venous stasis rather than heart failure as attempts at diuresis usually makes her renal function worse. Persistent a. fib - consider increasing digoxin dosing if rate doesn't improve, continue anticoagulation with reduced dosing of apixaban Chronic gout - no acute flare, continue allopurinol PG Care Time/CCT Total # of Minutes Spent Total Time Spent with Patient: Total time spent is greater than 50% in coordination of care (as documented) at patient's floor/unit and/or counseling patient: Coding Level of Care Code 09691 Initial Inpt Care Lvl 3 Diagnoses Nondisplaced fracture of right fibula S82.401A Systolic CHF, chronic I50.22 Atrial fibrillation I48.91 Pacemaker Z95.0 Chronic kidney disease, stage IV (severe) N18.4 Depression F32.9 Depression Type: unspecified Osteoarthritis M19.90 Gouty arthritis M10.9 Ambulatory dysfunction R26.2 DVT prophylaxis Z29.9 (1) Depression Depression Type: unspecified Qualified Code(s): F32.9 - Major depressive disorder, single episode, unspecified
--- NOTE | 2019-10-06 15:27 | Emergency Department Note ---
Impression & Plan Closed fracture of right distal fibula, Ambulatory dysfunction, Fall ED Provider Note NAME: JERRY LI AGE: 84 SEX: F ARRIVES VIA: Ambulance INFORMANT: [Patient][, ] ED PROVIDER(S): Bhavin Desai MD CHIEF COMPLAINT: Fall, Right ankle pain. PLAN: Disposition: Admit MEDICAL DECISION MAKING: The patient is a pleasant 84-year-old woman with a past medical history of systolic heart failure, history of A. fib, s/p PPM, CKD, arthritis, h/o colectomy s/p colostomy who presents emergency department with right ankle pain for the past several days after she reports slipping out of her bed several days ago and catching her leg underneath her with subsequent pain with movement and ambulation though she has been able to get by at home however today her pain became worse and so presented to the emergency department for evaluation. She denies head strike or LOC.She reports almost having another fall yesterday related to the pain but she caught herself. Denies fevers, chills, cough, congestion, CP, SOB, n/v, change in ostomy output, urinary sx. On arrival the patient is uncomfortable no acute distress, afebrile stable vital signs. On exam the patient has mild swelling and ecchymosis, and tenderness to the lateral malleolus. She does have range of motion intact. Distal PMS intact. Range of motion of the knee is preserved. Pelvis is stable with full range of motion of the hips bilaterally. Plain films were performed and does demonstrate a nondisplaced fracture of the distal fibula. Patient was ordered for a fracture boot. However, given the patient's discomfort in the setting of this fracture and the fact that she lives alone she is considered to be a fall risk. Therefore we did attempt to see if we could obtain placement and rehab/long term facility directly from the ED but this is not possible due to her insurance. Therefore will need admission for pain control with PT OT evaluation and placement. She is agreeable with this plan. I also reviewed the plan with her daughter over the phone. Case was d/w CALVIN Rust PAC, with ARISTEO Cameron hospitalist who will evaluate the patient for admission. Will defer additional testing to admitting team. Triage Nursing notes reviewed and agree them. [Prior medical records reviewed] [] Vital Signs: reviewed and remarkable for hypertension. Differential diagnosis: Fracture, subluxation, dislocation, contusion, ligamentous injury, neurovascular, compartment syndrome, rhabdomyolysis, as well as other pathologies. ER treatment provided: See below. Imaging studies: XR tibia fibula RT 2V CLINICAL HISTORY: pain fall COMPARISON: None. DISCUSSION: Nondisplaced oblique fracture distal fibular shaft. All remaining bony structures are negative for an additional acute bony abnormality. Generalized soft tissue edematous change. Degenerative change of the knee as well as ankle. IMPRESSION: 1. Oblique fracture distal fibular shaft considered nondisplaced. 2. Moderate generalized soft tissue edema. -- XR ankle RT min 3V routine CLINICAL HISTORY: pain fall trauma. Pain. COMPARISON: None. DISCUSSION: Generalized osteopenia/osteoporosis. Oblique nondisplaced fracture distal fibular shaft. Ankle mortise is aligned anatomically. Generalized soft tissue edema. Heel spur. IMPRESSION: 1. Oblique nondisplaced fracture distal fibular shaft. Consultation(s): Case was d/w Steffany Webster [facility], with Dr. Lambert, [place] hospitalist who will evaluate the patient for admission. HPI: The patient is a pleasant 84-year-old woman with a past medical history of systolic heart failure, history of A. fib, s/p PPM, CKD, arthritis, h/o colectomy s/p colostomy who presents emergency department with right ankle pain for the past several days after she reports slipping out of her bed several days ago and catching her leg underneath her with subsequent pain with movement and ambulation though she has been able to get by at home however today her pain became worse and so presented to the emergency department for evaluation. She denies head strike or LOC. She reports almost having another fall yesterday related to the pain but she caught herself. Denies fevers, chills, cough, congestion, CP, SOB, n/v, change in ostomy output, urinary sx. ROS: See above HPI for pertinent positives & negatives. A total of [10] systems reviewed and were otherwise negative. PAST MEDICAL HISTORY:[See Below] PAST SURGICAL HISTORY:[See Below] FAMILY HISTORY:[See Below] SOCIAL HISTORY:[See Below] HOME MEDICATIONS:[See Below] ALLERGIES:[See Below] VITALS:[See Below] PHYSICAL EXAMINATION: GENERAL: Awake, alert, uncomfortable-appearing, in no distress HENT: Normocephalic, atraumatic. Oropharynx with dry mucous membranes and otherwise unremarkable. EYES: Normal conjunctiva. Sclera non-icteric. NECK: Supple. No nuchal rigidity. FROM. No JVD. RESPIRATORY: Clear to auscultation. CARDIAC: Regular rate, normal rhythm. Extremities warm and well perfused. Pulses equal. ABDOMEN: Soft, non-distended. No tenderness to palpation. No rebound or guarding. No masses. RECTAL: Deferred. MUSCULOSKELETAL: Chest examination reveals no tenderness. The back is symmetrical on inspection without obvious abnormality. There is no CVA tenderness to palpation. Pelvis stable. Bilateral hips with FROM. LOWER EXTREMITIES: LLE 1+ edema with no discoloration. RLE with 2+ distal lower leg/ankle edema with ecchymosis and tenderness of lateral malleolus without bony crepitus or gross deformity. Distal PMS intact. NEURO: Normal sensorium. No sensory or motor deficits noted. SKIN: No rash or jaundice noted. Bhavin Desai MD Past Med/Surg History Medical History Abnormal stress test Ambulatory dysfunction (Acute) Atrial fibrillation (Acute 04/24/13) Chest pain Contusion of left hip (Acute) Degenerative arthritis of knee (Acute 03/16/14) Depression Dizziness (Acute) DJD (degenerative joint disease) (Acute) GI bleed (Acute) Gouty arthritis (Acute) Head trauma (Acute) Headache (Acute) Hemarthrosis (Acute) Hip hematoma, left (Acute) Left knee DJD (Acute) Left knee pain (Acute) Osteoarthritis (Acute) Pacemaker (Resolved) Rib fracture (Acute) Right rib fracture (Acute) Scalp hematoma (Acute) UTI (urinary tract infection) (Acute) Weakness (Acute) Social History Preferred Language: Bulgarian Communication Ability: Effective 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 Verified 10/06/19 13:25 Antibiotics) cephalexin Allergy Unknown Unknown Verified 10/06/19 13:25 diphenhydramine Allergy Unknown DOES NOT Verified 10/06/19 13:25 REMEMBER potassium chloride Allergy Unknown unknown Verified 10/06/19 13:25 mushroom Allergy Unknown Verified 10/06/19 15:49 Home Meds Home Medications Medication Instructions Recorded Confirmed Centrum Silver Women 1 tab PO QAM 06/20/19 10/06/19 PreserVision AREDS-2 1 tab PO BID 06/20/19 10/06/19 allopurinol 100 mg PO QAM 06/20/19 10/06/19 artificial tears(hypromellose) 1 drp OPB QID PRN 06/20/19 10/06/19 nitroglycerin [Nitrostat] 0.4 mg SUBLINGUAL DIRECTED PRN 06/20/19 10/06/19 omeprazole 20 mg PO QAM 06/20/19 10/06/19 apixaban [Eliquis] 2.5 mg PO BID 10/06/19 10/06/19 digoxin 125 mcg PO TUTHSA 10/06/19 10/06/19 furosemide 20 mg PO DAILY PRN 10/06/19 10/06/19 metoprolol succinate 100 mg PO BID 10/06/19 10/06/19 sertraline 25 mg PO HS 10/06/19 10/06/19 Previous Rx's Medication Instructions Recorded lorazepam 0.5 mg PO HS 3 Days #3 tab 07/05/19 Results & Data (ED) Vital Signs Vital Signs - 24 hr 10/06/19 11:05 10/06/19 11:07 10/06/19 11:08 Temperature 37.3 C Temperature Source Oral Pulse Rate 110 H 103 H 109 H Pulse Rate from SpO2 Sensor 110 H 110 H Respiratory Rate 19 22 20 Respiratory Effort / Characteristics Non-Labored Spontaneous Respiratory Depth Normal Respiratory Pattern Regular Blood Pressure 143/86 H 143/86 H Blood Pressure Mean 92 105 Pulse Oximetry 98 97 98 Oxygen Delivery Method Room Air Sepsis Recent Fever Within 48 Hours No Sepsis Action Taken by Nursing No Action Required 10/06/19 11:30 10/06/19 11:31 10/06/19 12:00 Temperature Temperature Source Pulse Rate 96 H 101 H 95 H Pulse Rate from SpO2 Sensor 103 H 100 H 95 H Respiratory Rate 23 12 14 Respiratory Effort / Characteristics Respiratory Depth Respiratory Pattern Blood Pressure 136/81 Blood Pressure Mean 98 Pulse Oximetry 97 98 96 Oxygen Delivery Method Sepsis Recent Fever Within 48 Hours Sepsis Action Taken by Nursing 10/06/19 12:01 10/06/19 12:30 10/06/19 12:31 Temperature Temperature Source Pulse Rate 101 H 101 H 101 H Pulse Rate from SpO2 Sensor 103 H 103 H 99 H Respiratory Rate 18 24 18 Respiratory Effort / Characteristics Respiratory Depth Respiratory Pattern Blood Pressure 133/99 145/89 H Blood Pressure Mean 118 116 Pulse Oximetry 96 97 96 Oxygen Delivery Method Sepsis Recent Fever Within 48 Hours Sepsis Action Taken by Nursing 10/06/19 13:00 10/06/19 13:01 10/06/19 13:02 Temperature Temperature Source Pulse Rate 102 H 104 H 106 H Pulse Rate from SpO2 Sensor 103 H 103 H 107 H Respiratory Rate 20 21 30 H Respiratory Effort / Characteristics Respiratory Depth Respiratory Pattern Blood Pressure 133/90 Blood Pressure Mean 97 Pulse Oximetry 98 96 98 Oxygen Delivery Method Sepsis Recent Fever Within 48 Hours Sepsis Action Taken by Nursing 10/06/19 13:30 10/06/19 13:31 10/06/19 13:32 Temperature Temperature Source Pulse Rate 97 H 108 H 95 H Pulse Rate from SpO2 Sensor 98 H 98 H 100 H Respiratory Rate 19 19 22 Respiratory Effort / Characteristics Respiratory Depth Respiratory Pattern Blood Pressure 153/89 H Blood Pressure Mean 114 Pulse Oximetry 95 95 96 Oxygen Delivery Method Sepsis Recent Fever Within 48 Hours Sepsis Action Taken by Nursing Laboratory Data Result diagrams: 10/06/19 15:34 10/06/19 15:34 Administered Medications Acetaminophen (Tylenol) 1,000 mg PO Q8H [facility] Stop: 11/05/19 21:59 Last Admin: 10/06/19 21:23 Dose: 1,000 mg Documented by: [id number] Apixaban (Eliquis) 2.5 mg PO BID [facility] Stop: 11/05/19 20:59 Last Admin: 10/06/19 21:21 Dose: 2.5 mg Documented by: [id number] Lorazepam (Ativan) 0.5 mg PO HS [facility]ACHA Stop: 11/05/19 20:59 Last Admin: 10/06/19 21:25 Dose: 0.5 mg Documented by: [id number] Metoprolol Succinate (Toprol Xl) 100 mg PO BID SACHA Stop: 11/05/19 20:59 Last Admin: 10/06/19 21:22 Dose: 100 mg Documented by: [id number] Miscellaneous (Order Awaiting Action) 1 ea N/A QS [facility] Stop: 11/05/19 15:59 Last Admin: 10/06/19 20:42 Dose: Not Given Documented by: [id number] Sertraline HCl (Zoloft) 25 mg PO HS SACHA Stop: 11/05/19 20:59 Last Admin: 10/06/19 21:22 Dose: 25 mg Documented by: [id number] Discontinued Medications Acetaminophen (Tylenol) 1,000 mg PO NOW STA Stop: 10/06/19 11:53 Last Admin: 10/06/19 12:41 Dose: 1,000 mg Documented by: [id number] Blood Pressure Blood Pressure Findings: Elevated blood pressure Discharge Plan Visit Data *Final* Discharge Date/Time: 10/06/19 14:42 Chief Complaint: Ankle Pain Stated Complaint: fall/ R ankle pain, swelling ED Provider: Bhavin Desai Discharge Problem: Closed fracture of right distal fibula, Ambulatory dysfunction, Fall Patient Disposition: Admitted As Inpatient Discharge Instructions Interventions: ED Discharge Assessment Last Done: 10/06/19 14:42 Discharge Problem: Closed fracture of right distal fibula Qualifiers: Encounter type: initial encounter Fracture morphology: unspecified fracture morphology Qualified Code(s): S82.831A - Other fracture of upper and lower end of right fibula, initial encounter for closed fracture
[2019-10-06] MEDS ORDERED: SENNOSIDES 8.8 MG/5 ML UDC PO PRN (15:34)
[2019-10-06] MEDS ORDERED: bisacodyL 5 MG TABEC PO PRN (15:34)
[2019-10-06] MEDS ORDERED: NITROGLYCERIN SL 0.4 MG/TAB TAB SL PRN (15:34)
[2019-10-06] MEDS ORDERED: MoRPHine SULFATE 2 MG/ML CARP IV PRN (15:34)
[2019-10-06] MEDS ORDERED: FUROSEMIDE 20 MG TAB PO PRN (15:34)
[2019-10-06] MEDS ORDERED: TRAMADOL HCL 50 MG TABLET PO PRN (15:34)
[2019-10-06] MEDS ORDERED: ONDANSETRON INJ 2 MG/ML 2 ML VIAL IV PRN (15:34)
[2019-10-06 15:51] LABS: White Blood Count 8.13 K/uL (4.8-10.8)
[2019-10-06] MEDS ORDERED: ARTIFICIAL TEARS OP PRN (15:57)
[2019-10-06 16:11] LABS: Albumin Level 3.3 gm/dl (3.4-5.0); BUN Creatinine Ratio 21.9 (10-20); Calcium 8.8 mg/dl (8.5-10.1); Creatinine Clr Calc Pharmacy 25.4 ml/min; Est GFR (African American) 34.8; Potassium 3.5 mmol/L (3.5-5.1)
[2019-10-06 16:14] LABS: Albumin Globulin Ratio 0.8 (0.9-2); Bilirubin,Total 1.3 mg/dl (0.2-1); Globulin 4.1 gm/dl (2.5-4.0); Total Protein 7.4 gm/dl (6.4-8.2)
[2019-10-06 16:17] LABS: Basophils # (auto) 0.01 K/uL (0-0.2); Basophils % (auto) 0.1 %; Eosinophils # (auto) 0.08 K/uL (0-0.5); Hematocrit (blood only) 35.6 % (37-47); Hemoglobin 11.7 g/dL (12.0-16.0); Immature Granulocytes # (auto) 0.03 K/uL (0.00-0.02); Immature Granulocytes % (auto) 0.4 %; Lymphocytes # (auto) 0.99 K/uL (1.2-3.4); Lymphocytes % (auto) 12.6 %; Mean Corpuscular Hemoglobin 29.7 pg (25-34); Mean Platelet Volume 10.7 fL (7.4-10.4); Monocytes # (auto) 1.62 K/uL (0.11-0.59); Monocytes % (auto) 20.6 %; Neutrophils # (auto) 5.15 K/uL (1.4-6.5); Neutrophils % (auto) 65.3 %; Platelet Count 156 K/uL (130-400); RDW Coefficient of Variation 15.8 % (11.5-14.5); RDW Standard Deviation 52.7 fL (36.4-46.3); Red Blood Count 3.94 M/uL (4.2-5.4)
[2019-10-06 16:35] LABS: Mean Corpuscular Hgb Conc 33.1 g/dL (32-36); Mean Corpuscular Volume 90.5 fL (80-100)
--- NOTE | 2019-10-06 17:05 | Orthopedic Consultation ---
Date of Consultation October 06, 2019 Assessment & Plan (1) Closed fracture of right distal fibula: She was seen and examined by Dr. Harper today. Would recommend continued conservative management. She has a walking boot that had been ordered already we attempted to place her in this but this boot did not fit her appropriately. After discussion with the patient we decided to place her into a short leg cast. A well-padded cast was applied. We will order a cast shoe for her. She can be touch weightbearing in the cast shoe on the right lower extremity. We did cut the toenails on the third and fourth toes for her some but we will also order a podiatry consult for this per the patient's request. We should see her back in clinic in approximately 2 weeks for x-rays of the right ankle. Present on Admission?: Yes History of Present Illness Reason for Consultation: Right ankle fracture Attending Physician: Adalid Lambert MD History of Present Illness 84-year-old female who we are asked to see regarding right ankle fracture. She states that she fell out of bed 2 or 3 days ago injuring her ankle. She has been admitted for due to the ankle pain as well as edema in her lower extremities. She normally ambulates with the use of a walker. She describes pain in the medial and lateral aspects of her ankle. She has a remote history of an ankle fracture that was treated in a cast. She has no other orthopedic complaints at this time. She does have a toenail that is rubbing against another toe and irritating it. She normally sees [facility] for this. Allergies Allergy/AdvReac Type Severity Reaction Status Date / Time Iodinated Contrast Media Allergy Severe Difficulty Verified 10/06/19 13:25 Breathing, Severe Hives Sulfa (Sulfonamide Allergy Mild . Verified 10/06/19 13:25 Antibiotics) cephalexin Allergy Unknown Unknown Verified 10/06/19 13:25 diphenhydramine Allergy Unknown DOES NOT Verified 10/06/19 13:25 REMEMBER potassium chloride Allergy Unknown unknown Verified 10/06/19 13:25 mushroom Allergy Unknown Verified 10/06/19 15:49 Home Medications Home Medications Medication Instructions Recorded Confirmed Type Centrum Silver Women 1 tab PO QAM 06/20/19 10/06/19 History PreserVision AREDS-2 1 tab PO BID 06/20/19 10/06/19 History allopurinol 100 mg PO QAM 06/20/19 10/06/19 History artificial tears(hypromellose) 1 drp OPB QID PRN 06/20/19 10/06/19 History nitroglycerin [Nitrostat] 0.4 mg SUBLINGUAL DIRECTED PRN 06/20/19 10/06/19 History omeprazole 20 mg PO QAM 06/20/19 10/06/19 History lorazepam 0.5 mg PO HS 3 Days #3 tab 07/05/19 10/06/19 Rx apixaban [Eliquis] 2.5 mg PO BID 10/06/19 10/06/19 History digoxin 125 mcg PO TUTHSA 10/06/19 10/06/19 History furosemide 20 mg PO DAILY PRN 10/06/19 10/06/19 History metoprolol succinate 100 mg PO BID 10/06/19 10/06/19 History sertraline 25 mg PO HS 10/06/19 10/06/19 History Patient History Medical History Abnormal stress test Ambulatory dysfunction (Acute) Atrial fibrillation (Acute 04/24/13) Chest pain Contusion of left hip (Acute) Degenerative arthritis of knee (Acute 03/16/14) Depression Dizziness (Acute) DJD (degenerative joint disease) (Acute) GI bleed (Acute) Gouty arthritis (Acute) Head trauma (Acute) Headache (Acute) Hemarthrosis (Acute) Hip hematoma, left (Acute) Left knee DJD (Acute) Left knee pain (Acute) Osteoarthritis (Acute) Pacemaker (Resolved) Rib fracture (Acute) Right rib fracture (Acute) Scalp hematoma (Acute) UTI (urinary tract infection) (Acute) Weakness (Acute) Social History Preferred Language: Kittitian Communication Ability: Effective Activity Coordinator Required: No Beliefs That Will Affect Care: None Current Living Situation: Alone Other Information That Helps Us Care for You: Yes Feels Safe at Home: Yes Safety Concerns: Feels Safe At This Time Smoking Status: Never smoker Hx Alcohol Use: No Hx Substance Use: No Review of Systems Musculoskeletal: as per Subjective / HPI Integumentary: no wounds Neurologic: no loss of sensation and no tingling Physical Exam Physical Exam: Elderly female in no distress. She is alert and oriented. On exam of the right lower extremity, she does have diffuse edema throughout her lower leg. She has ecchymosis around the lateral aspect of the ankle mostly. She is tender to palpation around the medial and lateral aspects of her ankle. She is able to dorsiflex and plantar flex appropriately. She is neurovascular intact. Her toenails are fairly long particularly on the third and fourth toes and rubbing against her other adjacent toes.No open areas, wounds or rashes noted. Skin is intact. Results & Data ([facility]) Vital Signs (Past 12 Hours) Vital Signs Temp Pulse Pulse Resp BP BP Pulse Ox 10/06/19 15:35 36.5 C 102 H 14 146/94 H 96 10/06/19 14:31 95 H 19 160/94 H 96 10/06/19 14:30 98 H 17 95 10/06/19 14:01 94 H 22 152/91 H 97 10/06/19 14:00 97 H 23 97 10/06/19 13:32 95 H 22 96 10/06/19 13:31 108 H 19 153/89 H 95 10/06/19 13:30 97 H 19 95 10/06/19 13:02 106 H 30 H 98 10/06/19 13:01 104 H 21 133/90 96 10/06/19 13:00 102 H 20 98 10/06/19 12:31 101 H 18 145/89 H 96 10/06/19 12:30 101 H 24 97 10/06/19 12:01 101 H 18 133/99 96 10/06/19 12:00 95 H 14 96 10/06/19 11:31 101 H 12 136/81 98 10/06/19 11:30 96 H 23 97 10/06/19 11:08 37.3 C 109 H 20 143/86 H 98 10/06/19 11:07 103 H 22 97 10/06/19 11:05 110 H 19 143/86 H 98 Diagnostic Findings Right ankle x-rays were reviewed taken here at [facility] which shows a minimally displaced distal fibula fracture. Ankle mortise is fairly well maintained on the oblique film. On the lateral there is some joint space narrowing posteriorly of the tibiotalar joint. PG Care Time/CCT Total # of Minutes Spent Total Time Spent with Patient: Total time spent is greater than 50% in coordination of care (as documented) at patient's floor/unit and/or counseling patient: Coding Level of Care Code 44438 Initial Inpt Care Lvl 3 Diagnoses Closed fracture of right distal fibula S82.831A
[2019-10-06] MEDS: [UNRECOGNIZED DRUG - REMARK] SCH ×2 (20:42→23:58)
[2019-10-06] MEDS: APIXABAN 2.5 MG TAB PO SCH (21:21)
[2019-10-06] MEDS: SERTRALINE HCL 50 MG TABLET PO SCH (21:22)
[2019-10-06] MEDS: METOPROLOL SUCC 50MG EXT REL TAB PO SCH (21:22)
[2019-10-06] MEDS: ACETAMINOPHEN 500 MG TAB PO SCH (21:23)
[2019-10-06] MEDS: LORazepam 0.5 MG TAB PO SCH (21:25)
[2019-10-07] MEDS: ACETAMINOPHEN 500 MG TAB PO SCH ×3 (05:58→21:03)
[2019-10-07 05:59] LABS: Hematocrit (blood only) 33.9 % (37-47); Hemoglobin 11.1 g/dL (12.0-16.0); Mean Corpuscular Hemoglobin 29.8 pg (25-34); Mean Corpuscular Hgb Conc 32.7 g/dL (32-36); Mean Corpuscular Volume 90.9 fL (80-100); Mean Platelet Volume 10.4 fL (7.4-10.4); Platelet Count 137 K/uL (130-400); RDW Coefficient of Variation 15.9 % (11.5-14.5); RDW Standard Deviation 52.8 fL (36.4-46.3); Red Blood Count 3.73 M/uL (4.2-5.4); White Blood Count 5.86 K/uL (4.8-10.8)
[2019-10-07 06:25] LABS: Albumin Level 2.9 gm/dl (3.4-5.0); BUN Creatinine Ratio 19.4 (10-20); Calcium 8.4 mg/dl (8.5-10.1); Creatinine Clr Calc Pharmacy 25.3 ml/min; Est GFR (African American) 29.4; Est GFR (Non-African American) 25.4; Potassium 3.4 mmol/L (3.5-5.1)
[2019-10-07 06:28] LABS: Albumin Globulin Ratio 0.8 (0.9-2); Bilirubin,Total 0.9 mg/dl (0.2-1); Globulin 3.9 gm/dl (2.5-4.0); Total Protein 6.8 gm/dl (6.4-8.2)
[2019-10-07] MEDS ORDERED: CEROVITE ADV FORMULA TAB PO SCH ×2 (09:00→21:00)
[2019-10-07] MEDS: PANTOprazole 40 MG TAB PO SCH (09:00)
[2019-10-07] MEDS: APIXABAN 2.5 MG TAB PO SCH ×2 (09:00→21:05)
[2019-10-07] MEDS: allopurinoL 100 MG TAB PO SCH (09:00)
[2019-10-07] MEDS: [UNRECOGNIZED DRUG - REMARK] SCH (09:00)
[2019-10-07] MEDS: METOPROLOL SUCC 50MG EXT REL TAB PO SCH ×2 (09:00→21:04)
--- NOTE | 2019-10-07 11:25 | Electrocardiogram Report ---
Test Reason : Blood Pressure : / mmHG Vent. Rate : 091 BPM Atrial Rate : 208 BPM P-R Int : 000 ms QRS Dur : 124 ms QT Int : 380 ms P-R-T Axes : 000 -65 253 degrees QTc Int : 467 ms Atrial fibrillation Left axis deviation Right bundle branch block with repolarization abnormality Voltage criteria for left ventricular hypertrophy Inferior infarct , age undetermined T wave abnormality, consider lateral ischemia Abnormal ECG When compared with ECG of 23-JUN-2019 06:25, Nonspecific T wave abnormality, worse in Inferior leads Confirmed by Cesar Coelho ([id number]) on 10/07/2019 11:25:19 AM Referred By: REFERRED SELF Confirmed By:Cesar Coelho
[2019-10-07] MEDS ORDERED: DIGOXIN 0.125 MG TAB PO SCH (16:00)
--- NOTE | 2019-10-07 17:59 | Hospitalist Progress Note ---
Date of Service October 07, 2019 Assessment & Plan (1) Nondisplaced fracture of right fibula: - Imaging showed right nondisplaced distal fibular fracture - Ortho consulted-appreciate recommendations-and short cast, toe-touch weightbearing, follow-up with Ortho in 2 weeks -Pain control as needed (2) Atrial fibrillation: -Paroxysmal, has pacemaker in place With mild tachycardia here-review of the chart shows that this has been a chronic issue for her -Continue rate controlling agents with Toprol-XL 100 mg p.o. twice daily, digoxin 0.125 mcg is ordered for 3 times a week-may increase to daily but cautious due to renal function being impaired given uncontrolled rates -Anticoagulated on Eliquis, renally dosed (3) Pacemaker: - Follows with Dr. Miller as outpatient - [employer] versa model, last check was in June 2019, battery longevity was 5.5 years at the time (4) Chronic kidney disease, stage IV (severe): - appears her baseline is 1.6-1.9 -At baseline today at 1.78 -Avoid nephrotoxins -renally dose meds when appropriate -follow BMP (5) Acute on chronic systolic (congestive) heart failure: Acute on chronic diastolic heart failure with mildly low LVEF Echo performed in 06/2019 with EF 40-45%, diastolic heart failure With JVD, lower extremity edema here, with rapid A. fib. Difficult to assess weight as her weight is now being done with a heavy cast on her right leg and weight is inaccurate -We will give Lasix 40 mg p.o. x1 now Potassium mildly low, but has an allergy to potassium chloride due to an adverse reaction while receiving IV potassium at hospitalization many years ago as per granddaughter -We will avoid giving potassium pills at this point and replace with dietary potassium as much as possible -Follow BMP -Daily weights -I's and O's (6) Depression: Doing well -Continue Zoloft 25 mg HS (7) Osteoarthritis: -Noted, stable (8) Gouty arthritis: -Noted, continue allopurinol 100 mg daily (9) Ambulatory dysfunction: -PT/OT consults appreciated-having great difficulty ambulating due to pre- existing general deconditioning and now with heavy cast on right foot Toe-touch weightbearing on the right due to fracture -Highly recommend acute rehab placement especially given that she has a tendency for rapid A. fib, volume overload from CHF -Uses a walker at baseline, fall precautions (10) DVT prophylaxis: -Eliquis 2.5 mg BID CODE: DNR Dispo: Continued stay, awaiting rehab placement COVID 19 test sent away for screening purposes for rehab placement Admission and Anticipated Discharge Date Admission Date: October 06, 2019 Subjective Patient feeling well today. She has no pain in the right ankle. She was placed in a short cast of the right leg yesterday by orthopedic surgery. She denies chest pain or shortness of breath. No nausea and is eating well. She is making urine. Review of Systems Review of Systems: All systems reviewed & are unremarkable except as noted in HPI & below Physical Exam Constitutional: WD/WN, vitals as above Eyes: + anicteric sclerae Neck: trachea midline, no thyromegaly Respiratory: normal respiratory effort, lungs clear to auscultation Cardiovascular: Rate/Rhythm: + tachycardic and + irregularly irregular Heart Sounds: + murmur (2/6 systolic murmur at the apex) Vessels: + JVD Extremities: + edema (Left leg with 2+ edema, right leg not visible due to cast) Chest (Breasts): Chest: normal inspection of chest Gastrointestinal (Abdomen): normal bowel sounds, soft, nontender, no hepatosplenomegaly Inspection/Auscultation: + abdomen abnormal to inspection (Colostomy bag in place with gas and stool) Musculoskeletal: Extremities: + extremities abnormal to inspection (Right leg with short cast in place), no cyanosis and no clubbing Skin: no rashes, warm and dry Neurologic: awake; no focal motor deficits Psychiatric: A+Ox3, euthymic affect Lymphatic: no lymphedema Results & Data Results & Data ([facility]) Vital Signs (Past 12 Hours) Vital Signs Temp Pulse Pulse Resp BP Pulse Ox 10/07/19 16:34 108 H 10/07/19 16:29 36.4 C L 108 H 18 129/78 95 10/07/19 10:08 93 H 133/99 10/07/19 07:26 36.6 C 85 16 149/83 H 96 Laboratory Results 10/07/19 10/07/19 10/07/19 Range/Units 14:32 05:37 05:37 WBC (4.8-10.8) K/uL RBC (4.2-5.4) M/uL Hgb (12.0-16.0) g/dL Hct (37-47) % MCV (80-100) fL MCH (25-34) pg MCHC (32-36) g/dL RDW Std Deviation (36.4-46.3) fL RDW Coeff of Thee (11.5-14.5) % Plt Count (130-400) K/uL MPV (7.4-10.4) fL Sodium 138 (136-145) mmol/L Potassium 3.4 L (3.5-5.1) mmol/L Chloride 104 (98-107) mmol/L Carbon Dioxide 28 (21-32) mmol/L Anion Gap 6.0 (3-11) BUN 35 H (7-18) mg/dl Creatinine 1.78 H (0.6-1.2) mg/dl Est Cr Clr Drug Dosing 25.3 ml/min Est GFR ( Amer) 29.4 Est GFR (Non-Af Amer) 25.4 BUN/Creatinine Ratio 19.4 (10-20) Glucose 105 H (70-99) mg/dl Calcium 8.4 L (8.5-10.1) mg/dl Total Bilirubin 0.9 (0.2-1) mg/dl AST 18 (15-37) U/L ALT 18 (12-78) U/L Alkaline Phosphatase 89 (45-117) U/L Total Protein 6.8 (6.4-8.2) gm/dl Albumin 2.9 L (3.4-5.0) gm/dl Globulin 3.9 (2.5-4.0) gm/dl Albumin/Globulin Ratio 0.8 L (0.9-2) 25-OH Vitamin D Total 43.0 (30-100) ng/ml SARS-CoV-2 RNA (RT-PCR) Pending 10/07/19 Range/Units 05:37 WBC 5.86 (4.8-10.8) K/uL RBC 3.73 L (4.2-5.4) M/uL Hgb 11.1 L (12.0-16.0) g/dL Hct 33.9 L (37-47) % MCV 90.9 (80-100) fL MCH 29.8 (25-34) pg MCHC 32.7 (32-36) g/dL RDW Std Deviation 52.8 H (36.4-46.3) fL RDW Coeff of Thee 15.9 H (11.5-14.5) % Plt Count 137 (130-400) K/uL MPV 10.4 (7.4-10.4) fL Sodium (136-145) mmol/L Potassium (3.5-5.1) mmol/L Chloride (98-107) mmol/L Carbon Dioxide (21-32) mmol/L Anion Gap (3-11) BUN (7-18) mg/dl Creatinine (0.6-1.2) mg/dl Est Cr Clr Drug Dosing ml/min Est GFR ( Amer) Est GFR (Non-Af Amer) BUN/Creatinine Ratio (10-20) Glucose (70-99) mg/dl Calcium (8.5-10.1) mg/dl Total Bilirubin (0.2-1) mg/dl AST (15-37) U/L ALT (12-78) U/L Alkaline Phosphatase (45-117) U/L Total Protein (6.4-8.2) gm/dl Albumin (3.4-5.0) gm/dl Globulin (2.5-4.0) gm/dl Albumin/Globulin Ratio (0.9-2) 25-OH Vitamin D Total (30-100) ng/ml SARS-CoV-2 RNA (RT-PCR) PG Care Time/CCT Total # of Minutes Spent Total Time Spent with Patient: Total time spent is greater than 50% in coordination of care (as documented) at patient's floor/unit and/or counseling patient: Coding Level of Care Code 60740 Subseq Hosp Care Lvl 3 Diagnoses Nondisplaced fracture of right fibula S82.401A Atrial fibrillation I48.91 Pacemaker Z95.0 Chronic kidney disease, stage IV (severe) N18.4 Acute on chronic systolic (congestive) heart failure I50.23 Depression F32.9 Depression Type: unspecified Osteoarthritis M19.90 Gouty arthritis M10.9 Ambulatory dysfunction R26.2 DVT prophylaxis Z29.9 (1) Depression Depression Type: unspecified Qualified Code(s): F32.9 - Major depressive disorder, single episode, unspecified
[2019-10-07] MEDS ORDERED: FUROSEMIDE 40 MG TAB PO ONE (18:05)
[2019-10-07] MEDS: SERTRALINE HCL 50 MG TABLET PO SCH (21:05)
[2019-10-07] MEDS: LORazepam 0.5 MG TAB PO SCH (21:08)
[2019-10-07] MEDS: PRESERVISION AREDS PO SCH (21:08)
[2019-10-08] MEDS: ACETAMINOPHEN 500 MG TAB PO SCH ×3 (05:46→21:08)
[2019-10-08 06:26] LABS: Calcium 8.2 mg/dl (8.5-10.1); Creatinine Clr Calc Pharmacy 24.8 ml/min; Est GFR (African American) 28.3; Est GFR (Non-African American) 24.4; Potassium 3.6 mmol/L (3.5-5.1)
--- NOTE | 2019-10-08 08:26 | Progress Notes ---
DATE: 10/08/2019 SUBJECTIVE: An 84-year-old white female admitted with a right ankle fracture from a fall. She is doing pretty well this morning. She is saying she has got some global pain, but seems to be improved in the cast. The cast seems to be fitting okay. OBJECTIVE: VITAL SIGNS: Temperature 36.5. Vital signs stable. GENERAL: Shows a pleasant elderly female. I had to awake her this morning. EXTREMITIES: Examination of the right leg reveals the cast is fitting reasonably well. Her swelling has actually decreased some, so the cast is a little bit loose. She can flex and extend her toes appropriately. ASSESSMENT: An 84-year-old white female with multiple medical comorbidities and lower extremity edema with a right stable ankle fracture. She is doing okay in the cast. We do need to be very careful to prevent heel ulcers. PLAN: At this point, we will keep her in the cast. We are going to keep her touch weightbearing for the first 2 weeks. We will change her cast likely in 2 weeks. We need to keep all pressure off her heel. I will need to see her back in 2 weeks. Any orthopedic questions can be directed to me at [phone].
[2019-10-08] MEDS: PRESERVISION AREDS PO SCH ×2 (08:49→21:08)
[2019-10-08] MEDS: APIXABAN 2.5 MG TAB PO SCH ×2 (08:50→21:09)
[2019-10-08] MEDS: PANTOprazole 40 MG TAB PO SCH (08:50)
[2019-10-08] MEDS: allopurinoL 100 MG TAB PO SCH (08:50)
[2019-10-08] MEDS: METOPROLOL SUCC 50MG EXT REL TAB PO SCH ×2 (08:51→21:10)
--- NOTE | 2019-10-08 15:16 | Hospitalist Progress Note ---
Date of Service October 08, 2019 Assessment & Plan (1) Nondisplaced fracture of right fibula: - Imaging showed right nondisplaced distal fibular fracture - Ortho consulted-appreciate recommendations-and short cast, toe-touch weightbearing, follow-up with Ortho in 2 weeks -Pain control as needed but really not having much pain at all PT/OT recommending rehab placement (2) Atrial fibrillation: -Paroxysmal, has pacemaker in place With mild tachycardia here-review of the chart shows that this has been a chronic issue for her -Continue rate controlling agents with Toprol-XL 100 mg p.o. twice daily, digoxin 0.125 mcg is ordered for 3 times a week -could consider increasing digoxin to daily dosing for better rate control, however will hold off on doing this due to renal function being impaired -Anticoagulated on Eliquis, renally dosed (3) Pacemaker: - Follows with Dr. Miller as outpatient - [employer] versa model, last check was in June 2019, battery longevity was 5.5 years at the time (4) Chronic kidney disease, stage IV (severe): - appears her baseline is 1.6-1.9 -Slightly increased today at 1.84 from previous after giving p.o. Lasix for volume overload -Avoid nephrotoxins -renally dose meds when appropriate -follow BMP (5) Acute on chronic systolic (congestive) heart failure: Acute on chronic diastolic heart failure with mildly low LVEF Echo performed in 06/2019 with EF 40-45%, diastolic heart failure With JVD, lower extremity edema here, with rapid A. fib. On hospital day #1 Now much improved clinically after giving her a one-time dose of Lasix 40 mg p.o. x1 on 10/06 Difficult to assess weight as her weight is now being done with a heavy cast on her right leg and weight is inaccurate Potassium was mildly low, but has an allergy to potassium chloride due to an adverse reaction while receiving IV potassium at hospitalization many years ago as per granddaughter. Patient also absolutely refuses to take any potassium orally. -We will avoid giving potassium pills at this point and replace with dietary potassium as much as possible with bananas with each meal -Follow BMP -Daily weights -I's and O's (6) Depression: Doing well -Continue Zoloft 25 mg HS (7) Osteoarthritis: -Noted, stable (8) Gouty arthritis: -Noted, continue allopurinol 100 mg daily (9) Ambulatory dysfunction: -PT/OT consults appreciated-having great difficulty ambulating due to pre- existing general deconditioning and now with heavy cast on right foot Toe-touch weightbearing on the right due to fracture -Highly recommend acute rehab placement especially given that she has a tendency for rapid A. fib, volume overload from CHF -Uses a walker at baseline, fall precautions (10) DVT prophylaxis: -Eliquis 2.5 mg BID CODE: DNR Dispo: Continued stay, awaiting rehab placement COVID 19 test sent away for screening purposes for rehab placement-still pending Admission and Anticipated Discharge Date Admission Date: October 06, 2019 Subjective Patient was urinating frequently last night after receiving Lasix and is very tired today. She was out of bed to chair all day. She only has some pain in the ankle when she is out of bed, but currently lying in bed and has no pain. She denies chest pain or shortness of breath. She is eating well. No other concerns. Review of Systems Review of Systems: All systems reviewed & are unremarkable except as noted in HPI & below Physical Exam Constitutional: WD/WN, vitals as above Eyes: + anicteric sclerae Neck: trachea midline, no thyromegaly Respiratory: normal respiratory effort, lungs clear to auscultation Cardiovascular: Rate/Rhythm: regular rate (To mildly tachycardic at times) and + irregularly irregular Heart Sounds: + murmur (2/6 systolic murmur at the apex) Vessels: no JVD Extremities: + edema (Left leg with 1+ edema, right leg not visible due to cast, improved from previous) Chest (Breasts): Chest: normal inspection of chest Gastrointestinal (Abdomen): normal bowel sounds, soft, nontender, no hepatosplenomegaly Inspection/Auscultation: + abdomen abnormal to inspection (Colostomy bag in place with gas and stool) Musculoskeletal: Extremities: + extremities abnormal to inspection (Right leg with short cast in place), no cyanosis and no clubbing Skin: no rashes, warm and dry Neurologic: awake; no focal motor deficits (Can wiggle toes on the right, sensation in right toes is intact compared to left) Psychiatric: A+Ox3, euthymic affect Lymphatic: no lymphedema Results & Data Results & Data ([facility]) Vital Signs (Past 12 Hours) Vital Signs Temp Pulse Resp BP BP Pulse Ox 10/08/19 10:41 99 H 122/67 10/08/19 06:30 36.5 C 92 H 21 153/90 H 97 Laboratory Results 10/08/19 Range/Units 05:40 Sodium 139 (136-145) mmol/L Potassium 3.6 (3.5-5.1) mmol/L Chloride 103 (98-107) mmol/L Carbon Dioxide 32 (21-32) mmol/L Anion Gap 4.0 (3-11) BUN 42 H (7-18) mg/dl Creatinine 1.84 H (0.6-1.2) mg/dl Est Cr Clr Drug Dosing 24.8 ml/min Est GFR ( Amer) 28.3 Est GFR (Non-Af Amer) 24.4 BUN/Creatinine Ratio 23.0 H (10-20) Glucose 104 H (70-99) mg/dl Calcium 8.2 L (8.5-10.1) mg/dl PG Care Time/CCT Total # of Minutes Spent Total Time Spent with Patient: Total time spent is greater than 50% in coordination of care (as documented) at patient's floor/unit and/or counseling patient: Coding Level of Care Code 78043 Subseq Hosp Care Lvl 2 Diagnoses Nondisplaced fracture of right fibula S82.401A Atrial fibrillation I48.91 Pacemaker Z95.0 Chronic kidney disease, stage IV (severe) N18.4 Acute on chronic systolic (congestive) heart failure I50.23 Depression F32.9 Depression Type: unspecified Osteoarthritis M19.90 Gouty arthritis M10.9 Ambulatory dysfunction R26.2 DVT prophylaxis Z29.9 (1) Depression Depression Type: unspecified Qualified Code(s): F32.9 - Major depressive disorder, single episode, unspecified
[2019-10-08] MEDS: SERTRALINE HCL 50 MG TABLET PO SCH (21:09)
[2019-10-08] MEDS: LORazepam 0.5 MG TAB PO SCH (21:27)
[2019-10-09] MEDS: ACETAMINOPHEN 500 MG TAB PO SCH ×3 (04:42→21:20)
[2019-10-09 05:51] LABS: BUN Creatinine Ratio 25.2 (10-20); Calcium 8.2 mg/dl (8.5-10.1); Creatinine Clr Calc Pharmacy 29.7 ml/min; Est GFR (African American) 35.6; Est GFR (Non-African American) 30.7; Potassium 4.1 mmol/L (3.5-5.1)
[2019-10-09] MEDS: PANTOprazole 40 MG TAB PO SCH (09:25)
[2019-10-09] MEDS: METOPROLOL SUCC 50MG EXT REL TAB PO SCH ×2 (09:25→21:19)
[2019-10-09] MEDS: APIXABAN 2.5 MG TAB PO SCH ×2 (09:26→21:17)
[2019-10-09] MEDS: PRESERVISION AREDS PO SCH ×2 (09:26→21:18)
[2019-10-09] MEDS: allopurinoL 100 MG TAB PO SCH (09:26)
--- NOTE | 2019-10-09 13:44 | Hospitalist Progress Note ---
Date of Service October 09, 2019 Assessment & Plan (1) Nondisplaced fracture of right fibula: X-ray of tib/fib on 10/05 showed right nondisplaced distal fibular fracture. - Ortho consulted - appreciate recommendations -> short cast, toe-touch weightbearing, follow-up with ortho in 2 weeks. - Pain control as needed but really not having much pain at all. - PT/OT recommending rehab placement -> Insurance rejected acute rehab; will work on SNF tomorrow. (2) Acute on chronic systolic (congestive) heart failure: Acute on chronic diastolic heart failure with mildly low LVEF. Echo performed in 06/2019 with EF 40-45%, diastolic heart failure. - With JVD, lower extremity edema here, with rapid A. fib. On hospital day #1. - Now much improved clinically after giving her a one-time dose of Lasix 40 mg p.o. x1 on 10/06. - On 10/08, weight is 98.5 kg which is dramatically higher than earlier this year, but with heavy cast on. Appears near euvolemic from symptoms and exam. - Daily weights - I's and O's (3) Atrial fibrillation: Paroxysmal, has pacemaker in place. With mild tachycardia here - review of the chart shows that this has been a chronic issue for her. - Continue rate controlling agents with Toprol XL 100 mg PO BID & digoxin 0.125 mcg PO 3XWK - Could consider increasing digoxin to daily dosing for better rate control, however will hold off on doing this due to renal function being impaired. - Anticoagulated on Eliquis, renally dosed (4) Pacemaker: Follows with Dr. Miller as outpatient. [employer] Versa model, last check was in June 2019, battery longevity was 5.5 years at the time. - No inpatient needs (5) Chronic kidney disease, stage IV (severe): Appears her baseline is 1.6-1.9. - Cr today is 1.5. - Follow BMP (6) Depression: Doing well. - Continue Zoloft 25 mg HS (7) Gouty arthritis: - Continue allopurinol 100 mg daily (8) DVT prophylaxis: Eliquis 2.5 mg PO BID Admission and Anticipated Discharge Date Admission Date: October 06, 2019 Subjective Relatively little pain today. Reports no fevers/chills, chest pain, shortness of breath, abdominal pain, nausea, or vomiting. Physical Exam Constitutional: WD/WN, vitals as above Eyes: EOM intact bilaterally; no conjunctival abnormality ENMT: external ear and nose normal, oropharynx normal Neck: trachea midline, no thyromegaly normal visual inspection Respiratory: normal respiratory effort, lungs clear to auscultation no respiratory distress Cardiovascular: Rate/Rhythm: + irregularly irregular Heart Sounds: normal S1 and normal S2 Gastrointestinal (Abdomen): Inspection/Auscultation: abdomen normal to inspection; abdomen not distended Musculoskeletal: no cyanosis or clubbing, extremities motor strength 5/5 Skin: no rashes, warm and dry Neurologic: moves all extremities and awake Psychiatric: Orientation: alert, oriented to person and cooperative Results & Data Results & Data ([facility]) Vital Signs (Past 12 Hours) Vital Signs Temp Pulse Resp BP Pulse Ox 10/09/19 07:46 36.5 C 106 H 16 133/83 95 PG Care Time/CCT Total # of Minutes Spent Total Time Spent with Patient: Total time spent is greater than 50% in coordination of care (as documented) at patient's floor/unit and/or counseling patient: Coding Level of Care Code 34149 Subseq Hosp Care Lvl 2 Diagnoses Nondisplaced fracture of right fibula S82.401A Acute on chronic systolic (congestive) heart failure I50.23 Atrial fibrillation I48.91 Pacemaker Z95.0 Chronic kidney disease, stage IV (severe) N18.4 Depression F32.9 Depression Type: unspecified Gouty arthritis M10.9 DVT prophylaxis Z29.9 (1) Depression Depression Type: unspecified Qualified Code(s): F32.9 - Major depressive disorder, single episode, unspecified
[2019-10-09] MEDS: SERTRALINE HCL 50 MG TABLET PO SCH (21:17)
[2019-10-09] MEDS: LORazepam 0.5 MG TAB PO SCH (21:22)
[2019-10-10] MEDS: ACETAMINOPHEN 500 MG TAB PO SCH ×2 (07:04→15:47)
[2019-10-10] MEDS: allopurinoL 100 MG TAB PO SCH (08:57)
[2019-10-10] MEDS: APIXABAN 2.5 MG TAB PO SCH (08:57)
[2019-10-10] MEDS: PANTOprazole 40 MG TAB PO SCH (08:58)
[2019-10-10] MEDS: PRESERVISION AREDS PO SCH (08:58)
[2019-10-10] MEDS: METOPROLOL SUCC 50MG EXT REL TAB PO SCH (09:02)
--- NOTE | 2019-10-10 15:54 | Discharge Summary ---
Date of Service October 10, 2019 Admission HPI Per Admitting Provider This is an 84 yo F with PMhx of CKD, generalized weakness, UTI, atrial fibrillation, status post pacemaker, history of GI bleed, ambulatory dysfunction, dizziness, rib fractures, osteoarthritis and gouty arthritis who pr esents 3 days after a fall she sustained while trying to get out of bed. She reports today her pain was so bad, that she couldn't walk and called EMS. In the past 3 days she has taken tylenol for pain relief. Today she was scheduled to see her PCP at [facility], but was unable to due to pain. She has been using a walker at baseline to get about her home, lives alone, and has a cleaning person come in every other week. She denies any other acute complaints but wants to eat something as she is starving, and would like her daughters to be made aware that she is here. Principal Diagnosis Right fibula fracture Discharge Exam Constitutional WD/WN, vitals as above Eyes EOM intact bilaterally; no conjunctival abnormality ENMT external ear and nose normal, oropharynx normal Neck trachea midline, no thyromegaly normal visual inspection Respiratory normal respiratory effort, lungs clear to auscultation no respiratory distress Cardiovascular Rate/Rhythm: + irregularly irregular Heart Sounds: normal S1 and normal S2 Gastrointestinal (Abdomen) Inspection/Auscultation: abdomen normal to inspection; abdomen not distended Musculoskeletal no cyanosis or clubbing, extremities motor strength 5/5 Skin no rashes, warm and dry Neurologic moves all extremities and awake Psychiatric Orientation: alert, oriented to person and cooperative Discharge Data Allergies Allergy/AdvReac Type Severity Reaction Status Date / Time Iodinated Contrast Media Allergy Severe Difficulty Verified 10/06/19 13:25 Breathing, Severe Hives Sulfa (Sulfonamide Allergy Mild . Verified 10/06/19 13:25 Antibiotics) cephalexin Allergy Unknown Unknown Verified 10/06/19 13:25 diphenhydramine Allergy Unknown DOES NOT Verified 10/06/19 13:25 REMEMBER potassium chloride Allergy Unknown unknown Verified 10/06/19 13:25 mushroom Allergy Unknown Verified 10/06/19 15:49 Consultations 10/06/19 13:49 Consult Case Management - Discharge Planning Routine 10/06/19 14:03 ED Decision to Admit Stat 10/06/19 14:18 Consult Orthopedic Surgery Routine 10/06/19 15:34 Consult Case Management - Discharge Planning Routine Hospital Course (1) Nondisplaced fracture of right fibula: X-ray of tib/fib on 10/05 showed right non-displaced distal fibular fracture. - Ortho consulted - appreciate recommendations -> short cast, toe-touch weightbearing, follow-up with ortho in 2 weeks. See discharge instructions for instructions. (2) Acute on chronic systolic (congestive) heart failure: Acute on chronic diastolic heart failure with mildly low LVEF. Echo performed in 06/2019 with EF 40-45%, diastolic heart failure. - With JVD, lower extremity edema here, with rapid A. fib. On hospital day #1. - Now much improved clinically after giving her a one-time dose of Lasix 40 mg p.o. x1 on 10/06. - On 10/08, weight is 98.5 kg which is dramatically higher than earlier this year, but with heavy cast on. Appears near euvolemic from symptoms and exam. - Daily weights -> Will need weight at [facility] daily and adjust Lasix if she starts to gain weight. (3) Atrial fibrillation: Paroxysmal, has pacemaker in place. With mild tachycardia here - review of the chart shows that this has been a chronic issue for her. - Continue rate controlling agents with Toprol XL 100 mg PO BID & digoxin 0.125 mcg PO 3XWK - Anticoagulated on Eliquis, renally dosed (4) Pacemaker: Follows with Dr. Miller as outpatient. [employer] Versa model, last check was in June 2019, battery longevity was 5.5 years at the time. - No inpatient needs (5) Chronic kidney disease, stage IV (severe): Appears her baseline is 1.6-1.9. - Cr was 1.5 on 10/08 - Follow BMP in a week or two. (6) Depression: Doing well. - Continue Zoloft 25 mg HS (7) Gouty arthritis: - Continue allopurinol 100 mg daily (8) DVT prophylaxis: Eliquis 2.5 mg PO BID Total Time Total Time Spent Total Time Spent (In Minutes): 35 Discharge Plan Discharge Items Patient Disposition: Transfer [facility] Fac Reason For Visit: RT FIBULAR FRACTURE Discharge Diagnosis: Right fibular fracture Activity: Per Instructions section Activity Comment: Toe-touch WB right Leg Bathing Comment: Keep cast clean and dry at all times. Weightbearing: Right toe touch Non-emergency contact: Primary Care Provider and Surgeon Call non-emergency contact if: your symptoms worsen Follow-up/Referrals: George Harper MD [Physician] - (Follow-up with Orthopedics in 2 weeks.) Patti James MD [Primary Care Provider] - Diet: Heart Healthy and Low Sodium (2gm) Addtl Attending Provider Instructions: Keep all pressure off heel while in bed. Please weigh daily. If she starts to gain weight (> 2 lbs in 2 days), please give Lasix 20 mg PO daily until her weight returns to baseline. Our hospital scale showed 222 lbs on discharge. Pending Studies at Discharge: No Stand-Alone Forms: My [facility] Skilled Items Patient informed of condition?: Yes DNR: Yes Discharge Level of Care: Skilled Communicable Disease: No Discharge Prognosis: Stable Lines: None Urinary Catheter: No Medications and DC Order Prescriptions: Continued allopurinol 100 mg tablet 100 mg PO QAM RF: 0 omeprazole 20 mg capsule,delayed release(DR/EC) 20 mg PO QAM RF: 0 Centrum Silver Women 8 mg iron-400 mcg-300 mcg Tablet 1 tab PO QAM RF: 0 PreserVision AREDS-2 [id number] Capsule 1 tab PO BID RF: 0 nitroglycerin [Nitrostat] 0.4 mg Tablet, Sublingual 0.4 mg sublingual DIRECTED PRN (Reason: Chest Pain) RF: 0 artificial tears(hypromellose) 0.3 % Drops 1 drp OPB QID PRN (Reason: Dry Eye(S)) RF: 0 metoprolol succinate 100 mg tablet extended release 24 hr 100 mg PO BID RF: 0 sertraline 25 mg tablet 25 mg PO HS RF: 0 digoxin 125 mcg (0.125 mg) tablet 125 mcg PO TUTHSA RF: 0 Eliquis 2.5 mg tablet 2.5 mg PO BID RF: 0 furosemide 20 mg tablet 20 mg PO DAILY PRN (Reason: Edema) RF: 0 lorazepam 0.5 mg tablet 0.5 mg PO HS 3 Days Qty: 3 RF: 0 Discharge Orders: Discharge Order (Routine); Ordered 10/10/19 Ordered By: Andre Miranda Admission Data Admit Date/Time: 10/06/19 13:48 Attending Provider: Andre Miranda Admit Provider: Adalid Lambert Primary Care Provider: Patti James Other Providers: Joby Lopez ; [facility] ; Andre Miranda ; Kaleigh Benton ; Shelly Archer at [facility] Other Interventions: Discharge Summary Assessment (RN) Last Done: 10/10/19 13:55 Coding Level of Care Code D/C Day Management >30 mins Diagnoses Nondisplaced fracture of right fibula S82.401A Acute on chronic systolic (congestive) heart failure I50.23 Atrial fibrillation I48.91 Pacemaker Z95.0 Chronic kidney disease, stage IV (severe) N18.4 Depression F32.9 Depression Type: unspecified Gouty arthritis M10.9 DVT prophylaxis Z29.9
== END 2019-10-10 16:54 | DRG 542 ==
LOC: ED 11:04 → SUATTDRO 13:48 → 3E 13:48

== ENCOUNTER 2020-11-19 14:43 | Inpatient (IN) ==
[2020-11-19] MEDS ORDERED: SODIUM CHLORIDE 0.9% 500 ML IV SCH (15:30)
[2020-11-19 16:04] LABS: Basophils # (auto) 0.01 K/uL (0-0.2); Basophils % (auto) 0.2 %; Eosinophils # (auto) 0.11 K/uL (0-0.5); Eosinophils % (auto) 1.7 %; Hematocrit (blood only) 43.2 % (37-47); Hemoglobin 14.9 g/dL (12.0-16.0); Immature Granulocytes # (auto) 0.06 K/uL (0.00-0.02); Immature Granulocytes % (auto) 0.9 %; Lymphocytes # (auto) 1.07 K/uL (1.2-3.4); Lymphocytes % (auto) 16.4 %; Mean Corpuscular Hgb Conc 34.5 g/dL (32-36); Mean Corpuscular Volume 92.7 fL (80-100); Mean Platelet Volume 10.7 fL (7.4-10.4); Monocytes # (auto) 1.13 K/uL (0.11-0.59); Monocytes % (auto) 17.3 %; Neutrophils # (auto) 4.16 K/uL (1.4-6.5); Neutrophils % (auto) 63.5 %; Platelet Count 209 K/uL (130-400); RDW Coefficient of Variation 14.2 % (11.5-14.5); Red Blood Count 4.66 M/uL (4.2-5.4); White Blood Count 6.54 K/uL (4.8-10.8)
[2020-11-19 16:21] LABS: Albumin Level 3.9 gm/dl (3.4-5.0); BUN Creatinine Ratio 27.7 (10-20); Calcium 9.7 mg/dl (8.5-10.1); Creatinine Clr Calc Pharmacy 24.4 ml/min; Est GFR (African American) 37.7 ml/min; Est GFR (Non-African American) 32.6 ml/min; Magnesium 2.6 mg/dl (1.8-2.4); Potassium 4.2 mmol/L (3.5-5.1)
[2020-11-19 16:22] LABS: Appearance Urine Clear (Clear); Bacteria Urine Automated Negative (Negative); Bilirubin Urine Negative (Negative); Blood Urine Negative (Negative); Color Urine Yellow; Glucose Urine UA Negative (Negative); Ketones Urine Negative (Negative); Leukocyte Esterase Urine Negative (Negative); Nitrite Urine Negative (Negative); Protein Urine Trace (Negative); RBC Urine Automated 0-4 /hpf (0-4); Specific Gravity Urine 1.011 (1.000-1.030); Urobilinogen Urine Negative (Negative); pH Urine 6.5 (4.5-7.5)
--- NOTE | 2020-11-19 16:22 | Emergency Department Note ---
Impression & Plan Syncope, Fall, Contusion of knee, right ED Provider Note NAME: JERRY LI AGE: 85 SEX: F : 1935 ARRIVES VIA: Ambulance INFORMANT: Patient, ED PROVIDER(S): Cesar Sumner DO CHIEF COMPLAINT: Fall HPI: The patient is an 85-year-old female who presented to the emergency department by ambulance after having a fall. The patient had fallen. She does relate that she was on the ground with her walker on top of her but she is not completely sure what exactly happened. She denies having any nausea or vomiting. She does complain of headache as well as pain in both legs. She has most pain in her right knee. She was not able to stand. She denies having any nausea or vomiting. She is awake and alert at this time. She normally lives at home alone. She states that she has been compliant with all of her usual out patient medications. She does have a history of kidney disease as well as frequent falls. The patient uses a walker. She states her pain is moderate at this time. She states pain is worsened with trying to ambulate but relieves mostly with holding still. She does take antiplatelet medication. ROS: See above HPI for pertinent positives & negatives. A total of 10 systems reviewed and were otherwise negative. PAST MEDICAL HISTORY: See Below PAST SURGICAL HISTORY: See Below FAMILY HISTORY: See Below SOCIAL HISTORY: See Below HOME MEDICATIONS: See Below ALLERGIES: See Below VITALS: See Below PHYSICAL EXAMINATION: GENERAL: Patient is awake and alert. She is somewhat anxious appearing but overall comfortable. EYES: The conjunctivae are clear. The pupils are round and reactive. EARS, NOSE, MOUTH AND THROAT: The nose is without any evidence of any deformity. NECK: The neck is nontender and supple. RESPIRATORY: Normal respiratory effort is noted there is no evidence of wheezing rhonchi or rales CARDIOVASCULAR: Regular rate and rhythm was noted to auscultation. Systolic murmur was suggested. GASTROINTESTINAL: The abdomen is soft. Abdomen is nontender. BACK: Tenderness was noted. MUSCULOSKELETAL/EXTREMITIES: There is diffuse tenderness over both lower e xtremities. Most of the pain appears to be over the right knee and right femur. There is ecchymosis over the right lower leg. SKIN: There is no obvious evidence of any rash. Pedal edema was noted b ilaterally. NEUROLOGIC: Patient is awake alert and oriented x3 strength is symmetric. MEDICAL DECISION MAKING: The patient is an 85-year-old female who presented to the emergency department for evaluation of leg pain. The patient describes an episode where she fell. She is unsure exactly what happened and I do feel it is possible the patient may have had a syncopal episode. The patient states that she was on the floor after her legs gave way and patient's walker was on top of her. The patient was reevaluated multiple times. She appeared to have some musculoskeletal injuries. I discussed the patient's laboratory and radiographic studies with her. She does have a pacemaker which was interrogated. No dysrhythmia was noted but the patient was found to have a detectable troponin. I discussed the patient's condition with her. At this time I would feel unsafe if the patient went home alone so we tried to contact the patient's family member to see if somebody can stay with her until she can follow-up with her family doctor for outpatient w ork-up. The patient was unable to find a family number that would be willing to stay with her. For this reason I [facility] have agreed to evaluate the patient in the emergency department for further management and disposition. The patient was able to ambulate with a walker. Triage Nursing notes reviewed. Prior medical records reviewed Vital Signs: reviewed and remarkable for elevated blood pressure. Differential diagnosis: Vasovagal event, dehydration, infection, hypoglycemia, electrolyte abnormalities, cardiac sources, intracerebral event, pulmonary embolism, seizure, toxicologic, neurologic, as well as other pathologies. ER treatment provided: See below Diagnostics interpreted by me: ECG: EKG was obtained in the emergency department. My interpretation is dual- chamber pacemaker at 60 bpm. There were no [place] beats. Left bundle branch block pattern was noted. LVH was noted by voltage criteria. This was compared to a tracing from October 06, 2019. The pacemaker is new and has replaced atrial fibrillation. Cardiac Monitoring: An order was placed for continuous cardiac monitoring. The monitor shows a rate of 60 bpm with Paced rhythm. Laboratory studies: As stated above and show below. Imaging studies: See below Consultation(s): I discussed this case with Dr. Hicks who [facility]. Past Med/Surg History Medical History (Updated 11/19/20 @ 21:29 by Daphnie Jain MD) Abnormal stress test Ambulatory dysfunction Atrial fibrillation Bilateral leg edema Chronic kidney disease, stage IV (severe) Closed fracture of right distal fibula Depression Dizziness DJD (degenerative joint disease) Fall GI bleed Gouty arthritis Hemarthrosis Hip hematoma, left Left knee DJD Osteoarthritis Pacemaker Right rib fracture Systolic CHF, chronic Weakness Social History Smoking Status: Never smoker Hx Alcohol Use: No Hx Substance Use: No Preferred Language: Georgian Communication Ability: Effective 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 Verified 11/19/20 16:34 Antibiotics) cephalexin Allergy Unknown Unknown Verified 11/19/20 16:34 diphenhydramine Allergy Unknown DOES NOT Verified 11/19/20 16:34 REMEMBER potassium chloride Allergy Unknown unknown Verified 11/19/20 16:34 mushroom Allergy Unknown Verified 11/19/20 16:34 Home Meds Home Medications Medication Instructions Recorded Confirmed allopurinol 100 mg tablet 100 mg PO QAM 06/20/19 11/19/20 artificial tears(hypromellose) 0.3 1 drp OPB QID PRN 06/20/19 11/19/20 % eye drops multivit with 1 tab PO QAM 06/20/19 11/19/20 tvldltwo-whlc-AU-lutein 8 mg iron-400 mcg-300 mcg tablet (Centrum Silver Women) nitroglycerin 0.4 mg sublingual 0.4 mg SUBLINGUAL DIRECTED PRN 06/20/19 11/19/20 tablet (Nitrostat) omeprazole 20 mg capsule,delayed 20 mg PO QAM 06/20/19 11/19/20 release vit C 250 mg-vit E 90 mg-zinc 40 1 tab PO BID 06/20/19 11/19/20 mg-copper 1 [id number]-thqoks capsule (PreserVision AREDS-2) apixaban 2.5 mg tablet (Eliquis) 2.5 mg PO BID 10/06/19 11/19/20 digoxin 125 mcg (0.125 mg) tablet 125 mcg PO 3XWK 10/06/19 11/19/20 furosemide 20 mg tablet 20 mg PO Q OTHER DAY 10/06/19 11/19/20 metoprolol succinate 100 mg 100 mg PO BID 10/06/19 11/19/20 tablet,extended release 24 hr sertraline 25 mg tablet 25 mg PO HS 10/06/19 11/19/20 metoprolol succinate 25 mg 25 mg PO AMPM 11/19/20 11/19/20 tablet,extended release 24 hr Previous Rx's Medication Instructions Recorded lorazepam 0.5 mg tablet 0.5 mg PO HS 3 Days #3 tab 10/10/19 Results & Data (ED) Vital Signs Vital Signs - 24 hr 11/19/20 14:58 11/19/20 15:44 11/19/20 17:33 Temperature 36.7 C Temperature Source Oral Pulse Rate 60 68 Pulse Rate [Apical] 60 60 Pulse Rhythm Regular Regular Pulse Strength Normal Respiratory Rate 21 20 20 Respiratory Effort / Characteristics Non-Labored Spontaneous Respiratory Depth Normal Respiratory Pattern Regular Blood Pressure 193/84 H Blood Pressure [Left Arm] 193/84 H 210/91 H Blood Pressure Mean 120 Blood Pressure Mean [Left Arm] 120 130 Blood Pressure Position Lying Pulse Oximetry 94 90 95 Oxygen Delivery Method Room Air Room Air Room Air Sepsis Recent Fever Within 48 Hours No Sepsis New/Unexplained Change in Mental Status N/A Sepsis Action Taken by Nursing No Action Required 11/19/20 20:38 Temperature Temperature Source Pulse Rate Pulse Rate [Apical] 60 Pulse Rhythm Pulse Strength Respiratory Rate 20 Respiratory Effort / Characteristics Respiratory Depth Respiratory Pattern Blood Pressure Blood Pressure [Left Arm] Blood Pressure Mean Blood Pressure Mean [Left Arm] Blood Pressure Position Pulse Oximetry 95 Oxygen Delivery Method Room Air Sepsis Recent Fever Within 48 Hours Sepsis New/Unexplained Change in Mental Status Sepsis Action Taken by [facility] Medications Current Medication List: was personally reviewed by me Laboratory Data Attestation: I reviewed the patient's lab results. Result diagrams: 11/19/20 15:41 11/19/20 15:41 Lab Results 11/19/20 11/19/20 11/19/20 Range/Units 15:41 15:41 15:41 WBC 6.54 (4.8-10.8) K/uL RBC 4.66 (4.2-5.4) M/uL Hgb 14.9 (12.0-16.0) g/dL Hct 43.2 (37-47) % MCV 92.7 (80-100) fL MCH 32.0 (25-34) pg MCHC 34.5 (32-36) g/dL RDW Std Deviation 48.0 H (36.4-46.3) fL RDW Coeff of Thee 14.2 (11.5-14.5) % Plt Count 209 (130-400) K/uL MPV 10.7 H (7.4-10.4) fL Immature Gran % (Auto) 0.9 % Neut % (Auto) 63.5 % Lymph % (Auto) 16.4 % Bent % (Auto) 17.3 % Eos % (Auto) 1.7 % Baso % (Auto) 0.2 % Neut # (Auto) 4.16 (1.4-6.5) K/uL Lymph # (Auto) 1.07 L (1.2-3.4) K/uL Bent # (Auto) 1.13 H (0.11-0.59) K/uL Eos # (Auto) 0.11 (0-0.5) K/uL Baso # (Auto) 0.01 (0-0.2) K/uL Immature Gran # (Auto) 0.06 H (0.00-0.02) K/uL PT 10.5 (9.0-12.0) Seconds INR 1.0 (0.9-1.1) APTT 30.6 (21.0-31.0) Seconds PTT Ratio 1.2 Sodium 135 L (136-145) mmol/L Potassium 4.2 (3.5-5.1) mmol/L Chloride 101 (98-107) mmol/L Carbon Dioxide 30 (21-32) mmol/L Anion Gap 4.0 (3-11) BUN 40 H (7-18) mg/dl Creatinine 1.44 H (0.6-1.2) mg/dl Est Cr Clr Drug Dosing 24.4 ml/min Est GFR ( Amer) 37.7 ml/min Est GFR (Non-Af Amer) 32.6 ml/min BUN/Creatinine Ratio 27.7 H (10-20) Glucose 77 (70-99) mg/dl Calcium 9.7 (8.5-10.1) mg/dl Magnesium 2.6 H (1.8-2.4) mg/dl Total Bilirubin 0.7 (0.2-1) mg/dl AST 31 (15-37) U/L ALT 25 (12-78) U/L Alkaline Phosphatase 123 H (45-117) U/L Troponin I 0.038 (0-0.045) ng/ml Total Protein 8.8 H (6.4-8.2) gm/dl Albumin 3.9 (3.4-5.0) gm/dl Globulin 4.9 H (2.5-4.0) gm/dl Albumin/Globulin Ratio 0.8 L (0.9-2) TSH 2.940 (0.300-4.500) uIu/ml Urine Color Urine Appearance (Clear) Urine pH (4.5-7.5) Ur Specific [place] (1.000-1.030) Urine Protein (Negative) Urine Glucose (UA) (Negative) Urine Ketones (Negative) Urine Blood (Negative) Urine Nitrite (Negative) Urine Bilirubin (Negative) Urine Urobilinogen (Negative) Ur Leukocyte Esterase (Negative) Urine WBC (Auto) (0-5) /hpf Urine RBC (Auto) (0-4) /hpf U Hyaline Cast (Auto) (0-5) /lpf U Epithel Cells (Auto) (0-5) /lpf Urine Bacteria (Auto) (Negative) Digoxin (0.8-2.0) ng/ml COVID-19 Eval Order SARS-CoV-2 (PCR) (Negative) 11/19/20 11/19/20 11/19/20 Range/Units 15:41 16:06 17:31 WBC (4.8-10.8) K/uL RBC (4.2-5.4) M/uL Hgb (12.0-16.0) g/dL Hct (37-47) % MCV (80-100) fL MCH (25-34) pg MCHC (32-36) g/dL RDW Std Deviation (36.4-46.3) fL RDW Coeff of Thee (11.5-14.5) % Plt Count (130-400) K/uL MPV (7.4-10.4) fL Immature Gran % (Auto) % Neut % (Auto) % Lymph % (Auto) % Bent % (Auto) % Eos % (Auto) % Baso % (Auto) % Neut # (Auto) (1.4-6.5) K/uL Lymph # (Auto) (1.2-3.4) K/uL Bent # (Auto) (0.11-0.59) K/uL Eos # (Auto) (0-0.5) K/uL Baso # (Auto) (0-0.2) K/uL Immature Gran # (Auto) (0.00-0.02) K/uL PT (9.0-12.0) Seconds INR (0.9-1.1) APTT (21.0-31.0) Seconds PTT Ratio Sodium (136-145) mmol/L Potassium (3.5-5.1) mmol/L Chloride (98-107) mmol/L Carbon Dioxide (21-32) mmol/L Anion Gap (3-11) BUN (7-18) mg/dl Creatinine (0.6-1.2) mg/dl Est Cr Clr Drug Dosing ml/min Est GFR ( Amer) ml/min Est GFR (Non-Af Amer) ml/min BUN/Creatinine Ratio (10-20) Glucose (70-99) mg/dl Calcium (8.5-10.1) mg/dl Magnesium (1.8-2.4) mg/dl Total Bilirubin (0.2-1) mg/dl AST (15-37) U/L ALT (12-78) U/L Alkaline Phosphatase (45-117) U/L Troponin I (0-0.045) ng/ml Total Protein (6.4-8.2) gm/dl Albumin (3.4-5.0) gm/dl Globulin (2.5-4.0) gm/dl Albumin/Globulin Ratio (0.9-2) TSH (0.300-4.500) uIu/ml Urine Color Yellow Urine Appearance Clear (Clear) Urine pH 6.5 (4.5-7.5) Ur Specific [place] 1.011 (1.000-1.030) Urine Protein Trace H (Negative) Urine Glucose (UA) Negative (Negative) Urine Ketones Negative (Negative) Urine Blood Negative (Negative) Urine Nitrite Negative (Negative) Urine Bilirubin Negative (Negative) Urine Urobilinogen Negative (Negative) Ur Leukocyte Esterase Negative (Negative) Urine WBC (Auto) 1-5 (0-5) /hpf Urine RBC (Auto) 0-4 (0-4) /hpf U Hyaline Cast (Auto) 1-5 (0-5) /lpf U Epithel Cells (Auto) 5-10 H (0-5) /lpf Urine Bacteria (Auto) Negative (Negative) Digoxin 1.1 (0.8-2.0) ng/ml COVID-19 Eval Order Covid19 at [facility] SARS-CoV-2 (PCR) (Negative) 11/19/20 Range/Units 17:31 WBC (4.8-10.8) K/uL RBC (4.2-5.4) M/uL Hgb (12.0-16.0) g/dL Hct (37-47) % MCV (80-100) fL MCH (25-34) pg MCHC (32-36) g/dL RDW Std Deviation (36.4-46.3) fL RDW Coeff of Thee (11.5-14.5) % Plt Count (130-400) K/uL MPV (7.4-10.4) fL Immature Gran % (Auto) % Neut % (Auto) % Lymph % (Auto) % Bent % (Auto) % Eos % (Auto) % Baso % (Auto) % Neut # (Auto) (1.4-6.5) K/uL Lymph # (Auto) (1.2-3.4) K/uL Bent # (Auto) (0.11-0.59) K/uL Eos # (Auto) (0-0.5) K/uL Baso # (Auto) (0-0.2) K/uL Immature Gran # (Auto) (0.00-0.02) K/uL PT (9.0-12.0) Seconds INR (0.9-1.1) APTT (21.0-31.0) Seconds PTT Ratio Sodium (136-145) mmol/L Potassium (3.5-5.1) mmol/L Chloride (98-107) mmol/L Carbon Dioxide (21-32) mmol/L Anion Gap (3-11) BUN (7-18) mg/dl Creatinine (0.6-1.2) mg/dl Est Cr Clr Drug Dosing ml/min Est GFR ( Amer) ml/min Est GFR (Non-Af Amer) ml/min BUN/Creatinine Ratio (10-20) Glucose (70-99) mg/dl Calcium (8.5-10.1) mg/dl Magnesium (1.8-2.4) mg/dl Total Bilirubin (0.2-1) mg/dl AST (15-37) U/L ALT (12-78) U/L Alkaline Phosphatase (45-117) U/L Troponin I (0-0.045) ng/ml Total Protein (6.4-8.2) gm/dl Albumin (3.4-5.0) gm/dl Globulin (2.5-4.0) gm/dl Albumin/Globulin Ratio (0.9-2) TSH (0.300-4.500) uIu/ml Urine Color Urine Appearance (Clear) Urine pH (4.5-7.5) Ur Specific [place] (1.000-1.030) Urine Protein (Negative) Urine Glucose (UA) (Negative) Urine Ketones (Negative) Urine Blood (Negative) Urine Nitrite (Negative) Urine Bilirubin (Negative) Urine Urobilinogen (Negative) Ur Leukocyte Esterase (Negative) Urine WBC (Auto) (0-5) /hpf Urine RBC (Auto) (0-4) /hpf U Hyaline Cast (Auto) (0-5) /lpf U Epithel Cells (Auto) (0-5) /lpf Urine Bacteria (Auto) (Negative) Digoxin (0.8-2.0) ng/ml COVID-19 Eval Order SARS-CoV-2 (PCR) NEGATIVE (Negative) Administered Medications Discontinued Medications Acetaminophen (Acetaminophen 325 Mg Tab) 650 mg PO NOW STA Stop: 11/19/20 20:10 Last Admin: 11/19/20 20:21 Dose: 650 mg Documented by: [id number] Sodium Chloride (Nss) 500 mls @ 999 mls/hr IV .Q31M SACHA Stop: 11/19/20 16:00 Last Infusion: 11/19/20 16:37 Dose: 0 mls/hr Documented by: [id number] Admin: 11/19/20 15:43 Dose: 999 mls/hr Documented by: [id number] Imaging Data Radiologist's Impression: Cervical Spine CT 11/19/20 15:22 CT OF THE CERVICAL SPINE WITHOUT CONTRAST CLINICAL HISTORY: Fall. COMPARISON STUDY: Cervical spine CT August 19, 2014. TECHNIQUE: Helical axial images of the cervical spine were obtained without IV contrast. Sagittal and coronal reconstructions were viewed. Automated exposure control was utilized for the study. A dose lowering technique was utilized adhering to the principles of ALARA. FINDINGS: Mild reversal the normal cervical lordosis is unchanged since prior CT. Vertebral body heights are maintained. No acute cervical spine fracture or subluxation is present. There is no prevertebral edema. Facet joints are intact. Severe degenerative changes at the C1-C2 articulation are noted as well as severe multilevel facet arthrosis and moderate multilevel degenerative disc disease. This exam is mildly compromised by artifact. IMPRESSION: No acute cervical spine fracture or subluxation. ACT 112: Negative or not required by law. Electronically signed by: Mike Zuniga M.D. 11/19/2020 4:43 PM Femur X-Ray 11/19/20 15:22 SINGLE VIEW PELVIS; 3 VIEWS RIGHT FEMUR CLINICAL HISTORY: Fall with right leg pain. FINDINGS: An AP view of the pelvis with AP, frog-leg, and lateral views of the right femur are compared to pelvic x-ray dated 03/29/2015. The skeletal structures are osteopenic. There is no radiographic evidence of acute fracture involving the hips or bony pelvis. There is no radiographic evidence of right femoral fracture. Moderate degenerative joint space narrowing is present in both hips. Degenerative sclerosis is seen in the sacroiliac joints. Lumbosacral spondylosis is partially visualized. Arthritic change is noted in the right knee. The overlying soft tissues are normal as imaged. Advanced atherosclerotic calcification is seen in the femoral arteries. There is no evidence of bowel obstruction. An ostomy is suggested in the left lower quadrant. IMPRESSION: 1. There is no radiographic evidence of acute fracture involving the hips or bony pelvis. 2. There is no radiographic evidence of right femoral fracture. Electronically signed by: Jose Rodrigues M.D. 11/19/2020 4:[address] 11/19/20 15:22 CT OF THE HEAD WITHOUT CONTRAST CLINICAL HISTORY: syncope COMPARISON STUDY: Head CT September 18, 2017. CT DOSE: 638.56 mGycm TECHNIQUE: Helical axial images of the head were obtained without IV contrast. Automated exposure control was utilized for the study. A dose lowering techn ique was utilized adhering to the principles of ALARA. FINDINGS: No acute intracranial hemorrhage, midline shift or mass effect is present. White matter hypodensities are similar to exam of September 18, 2017. The appearance of the brain is unchanged. The ventricular system is unremarkable. The basal cisterns are patent. No extra-axial collections are present. There are no findings to suggest acute dural sinus thrombosis or acute territorial infarct. No significant calvarial abnormalities are present. Visualized portions of the sinuses and mastoid air cells are clear. IMPRESSION: 1. No acute intracranial findings. No change in appearance of the brain. 2. No calvarial fracture. ACT 112: Negative or not required by law. Electronically signed by: Mike Zuniga M.D. 11/19/2020 4:40 PM Knee X-Ray 11/19/20 15:22 XR knee RT 1 or 2V routine CLINICAL HISTORY: fall COMPARISON: Knee radiographs January 22, 2014. FINDINGS: No acute fracture is noted. There is no joint effusion. There is severe lateral compartment and medial compartment osteoarthritis of the right knee. There is valgus deformity. Extensive vascular calcification is noted. IMPRESSION: 1. No acute fracture or joint effusion of the right knee. 2. Severe lateral and patellofemoral compartment osteoarthritis of the right knee. ACT 112: Negative or not required by law. Electronically signed by: Mike Zuniga M.D. 11/19/2020 4:57 PM Pelvis X-Ray 11/19/20 15:22 SINGLE VIEW PELVIS; 3 VIEWS RIGHT FEMUR CLINICAL HISTORY: Fall with right leg pain. FINDINGS: An AP view of the pelvis with AP, frog-leg, and lateral views of the right femur are compared to pelvic x-ray dated 03/29/2015. The skeletal structures are osteopenic. There is no radiographic evidence of acute fracture involving the hips or bony pelvis. There is no radiographic evidence of right femoral fracture. Moderate degenerative joint space narrowing is present in both hips. Degenerative sclerosis is seen in the sacroiliac joints. Lumbosacral spondylosis is partially visualized. Arthritic change is noted in the right knee. The overlying soft tissues are normal as imaged. Advanced atherosclerotic calcification is seen in the femoral arteries. There is no evidence of bowel obs truction. An ostomy is suggested in the left lower quadrant. IMPRESSION: 1. There is no radiographic evidence of acute fracture involving the hips or bony pelvis. 2. There is no radiographic evidence of right femoral fracture. Electronically signed by: Jose Rodrigues M.D. 11/19/2020 4:58 PM Tibia/Fibula X-Ray 11/19/20 15:22 RIGHT TIBIA AND FIBULA 2 VIEWS CLINICAL HISTORY: Fall with right leg injury. FINDINGS: AP and lateral views of the right tibia and fibula are compared to study dated 10/06/2019. The skeletal structures are osteopenic. There is no radiographic evidence of right tibial or fibular fracture. The knee and ankle joints are grossly maintained noting degenerative change. Soft tissue edema is present in the right calf. There are numerous small phleboliths, as well as atherosclerotic calcification of the regional arteries. IMPRESSION: Soft tissue swelling with no radiographic evidence of right tibial or fibular fracture. Electronically signed by: Jose Rodrigues M.D. 11/19/2020 4:59 PM Tibia/Fibula X-Ray 11/19/20 15:22 LEFT TIBIA AND FIBULA 2 VIEWS CLINICAL HISTORY: Fall with left leg injury. FINDINGS: AP and lateral views of the left tibia and fibula are correlated with radiographs of the left knee dated 03/29/2015. The skeletal structures are osteopenic. There is no radiographic evidence of left tibial or fibular fracture. The knee and ankle joints are grossly maintained noting degenerative change. Soft tissue edema is present in the calf. There is atherosclerotic calcification of the regional arteries. IMPRESSION: Soft tissue swelling with no radiographic evidence of left tibial or fibular fracture. Electronically signed by: Jose Rodrigues M.D. 11/19/2020 5:01 PM Chest X-Ray 11/19/20 17:20 XR chest 1V portable CLINICAL HISTORY: fall COMPARISON STUDY: Chest radiograph July 02, 2019. FINDINGS: Dual-lead left subclavian pacemaker is in place. Moderate cardiomegaly is unchanged. No evidence for pulmonary edema. No consolidation is present. Degenerative changes of both shoulders are incidentally noted. There is no pneumothorax. Possible trace right pleural effusion. IMPRESSION: No acute cardiopulmonary findings. Irregular. ACT 112: Negative or not required by law. Electronically signed by: Mike Zuniga M.D. 11/19/2020 5:37 PM Discharge Plan Visit Data Chief Complaint: Fall Stated Complaint: FALL ED Provider: Cesar Sumner Discharge Problem: Syncope, Fall, Contusion of knee, right Patient Disposition: Being Evaluated by Hospitalist Condition: Good Forms Stand Alone Forms: My [facility] Prescriptions Prescriptions: No Action allopurinol 100 mg tablet 100 mg PO QAM RF: 0 omeprazole 20 mg capsule,delayed release(DR/EC) 20 mg PO QAM RF: 0 Centrum Silver Women 8 mg iron-400 mcg-300 mcg Tablet 1 tab PO QAM RF: 0 PreserVision AREDS-2 [phone] gm-txqn-zp-mg Capsule 1 tab PO BID RF: 0 nitroglycerin [Nitrostat] 0.4 mg Tablet, Sublingual 0.4 mg sublingual DIRECTED PRN (Reason: Chest Pain) RF: 0 artificial tears(hypromellose) 0.3 % Drops 1 drp OPB QID PRN (Reason: Dry Eye(S)) RF: 0 metoprolol succinate 100 mg tablet extended release 24 hr 100 mg PO BID RF: 0 sertraline 25 mg tablet 25 mg PO HS RF: 0 digoxin 125 mcg (0.125 mg) tablet 125 mcg PO 3XWK RF: 0 Eliquis 2.5 mg tablet 2.5 mg PO BID RF: 0 furosemide 20 mg tablet 20 mg PO Q OTHER DAY RF: 0 lorazepam 0.5 mg tablet 0.5 mg PO HS 3 Days Qty: 3 RF: 0 metoprolol succinate 25 mg tablet extended release 24 hr 25 mg PO AMPM RF: 0 Referrals Referrals: Patti James MD [Primary Care Provider] -
[2020-11-19 16:24] LABS: Partial Thromboplastin Ratio 1.2; Partial Thromboplastin Time 30.6 Seconds (21.0-31.0); Prothrombin Time 10.5 Seconds (9.0-12.0)
[2020-11-19 16:32] LABS: Albumin Globulin Ratio 0.8 (0.9-2); Bilirubin,Total 0.7 mg/dl (0.2-1); Globulin 4.9 gm/dl (2.5-4.0); Thyroid Stimulating Hormone 2.94 uIu/ml (0.300-4.500); Total Protein 8.8 gm/dl (6.4-8.2); Troponin I 0.038 ng/ml (0-0.045)
--- NOTE | 2020-11-19 16:41 | CT Scan Report ---
CT OF THE HEAD WITHOUT CONTRAST CLINICAL HISTORY: syncope COMPARISON STUDY: Head CT September 18, 2017. CT DOSE: 638.56 mGycm TECHNIQUE: Helical axial images of the head were obtained without IV contrast. Automated exposure con trol was utilized for the study. A dose lowering technique was utilized adhering to the principles o f ALARA. FINDINGS: No acute intracranial hemorrhage, midline shift or mass effect is present. White matter hyp odensities are similar to exam of September 18, 2017. The appearance of the brain is unchanged. The ventric ular system is unremarkable. The basal cisterns are patent. No extra-axial collections are present. T here are no findings to suggest acute dural sinus thrombosis or acute territorial infarct. No signifi cant calvarial abnormalities are present. Visualized portions of the sinuses and mastoid air cells ar e clear. IMPRESSION: 1. No acute intracranial findings. No change in appearance of the brain. 2. No calvarial fracture. ACT 112: Negative or not required by law. Electronically signed by: Mike Zuniga M.D. 11/19/2020 4:40 PM
--- NOTE | 2020-11-19 16:44 | CT Scan Report ---
CT OF THE CERVICAL SPINE WITHOUT CONTRAST CLINICAL HISTORY: Fall. COMPARISON STUDY: Cervical spine CT August 19, 2014. TECHNIQUE: Helical axial images of the cervical spine were obtained without IV contrast. Sagittal a nd coronal reconstructions were viewed. Automated exposure control was utilized for the study. A do se lowering technique was utilized adhering to the principles of ALARA. FINDINGS: Mild reversal the normal cervical lordosis is unchanged since prior CT. Vertebral body heig hts are maintained. No acute cervical spine fracture or subluxation is present. There is no preverteb ral edema. Facet joints are intact. Severe degenerative changes at the C1-C2 articulation are noted as well as severe multilevel facet arthrosis and moderate multilevel degenerative disc disease. This exam is mildly compromised by artifact. IMPRESSION: No acute cervical spine fracture or subluxation. ACT 112: Negative or not required by law. Electronically signed by: Mike Zuniga M.D. 11/19/2020 4:43 PM
--- NOTE | 2020-11-19 16:58 | XRay Report ---
XR knee RT 1 or 2V routine CLINICAL HISTORY: fall COMPARISON: Knee radiographs January 22, 2014. FINDINGS: No acute fracture is noted. There is no joint effusion. There is severe lateral compartmen t and medial compartment osteoarthritis of the right knee. There is valgus deformity. Extensive vascu lar calcification is noted. IMPRESSION: 1. No acute fracture or joint effusion of the right knee. 2. Severe lateral and patellofemoral compartment osteoarthritis of the right knee. ACT 112: Negative or not required by law. Electronically signed by: Mike Zuniga M.D. 11/19/2020 4:57 PM
--- NOTE | 2020-11-19 16:59 | XRay Report ---
SINGLE VIEW PELVIS; 3 VIEWS RIGHT FEMUR CLINICAL HISTORY: Fall with right leg pain. FINDINGS: An AP view of the pelvis with AP, frog-leg, and lateral views of the right femur are compar ed to pelvic x-ray dated 03/29/2015. The skeletal structures are osteopenic. There is no radiographic evidence of acute fracture involving the hips or bony pelvis. There is no radiographic evidence of r ight femoral fracture. Moderate degenerative joint space narrowing is present in both hips. Degenerat consuelo sclerosis is seen in the sacroiliac joints. Lumbosacral spondylosis is partially visualized. Arth ritic change is noted in the right knee. The overlying soft tissues are normal as imaged. Advanced at herosclerotic calcification is seen in the femoral arteries. There is no evidence of bowel obstructio n. An ostomy is suggested in the left lower quadrant. IMPRESSION: 1. There is no radiographic evidence of acute fracture involving the hips or bony pelvis. 2. There is no radiographic evidence of right femoral fracture. Electronically signed by: Jose Rodrigues M.D. 11/19/2020 4:58 PM
--- NOTE | 2020-11-19 17:01 | XRay Report ---
RIGHT TIBIA AND FIBULA 2 VIEWS CLINICAL HISTORY: Fall with right leg injury. FINDINGS: AP and lateral views of the right tibia and fibula are compared to study dated 10/06/2019. T he skeletal structures are osteopenic. There is no radiographic evidence of right tibial or fibular f racture. The knee and ankle joints are grossly maintained noting degenerative change. Soft tissue emerson ma is present in the right calf. There are numerous small phleboliths, as well as atherosclerotic abby cification of the regional arteries. IMPRESSION: Soft tissue swelling with no radiographic evidence of right tibial or fibular fracture. Electronically signed by: Jose Rodrigues M.D. 11/19/2020 4:59 PM
--- NOTE | 2020-11-19 17:02 | XRay Report ---
LEFT TIBIA AND FIBULA 2 VIEWS CLINICAL HISTORY: Fall with left leg injury. FINDINGS: AP and lateral views of the left tibia and fibula are correlated with radiographs of the le ft knee dated 03/29/2015. The skeletal structures are osteopenic. There is no radiographic evidence o f left tibial or fibular fracture. The knee and ankle joints are grossly maintained noting degenerati ve change. Soft tissue edema is present in the calf. There is atherosclerotic calcification of the re gional arteries. IMPRESSION: Soft tissue swelling with no radiographic evidence of left tibial or fibular fracture. Electronically signed by: Jose Rodrigues M.D. 11/19/2020 5:01 PM
--- NOTE | 2020-11-19 17:38 | XRay Report ---
XR chest 1V portable CLINICAL HISTORY: fall COMPARISON STUDY: Chest radiograph July 02, 2019. FINDINGS: Dual-lead left subclavian pacemaker is in place. Moderate cardiomegaly is unchanged. No svitlana dence for pulmonary edema. No consolidation is present. Degenerative changes of both shoulders are in cidentally noted. There is no pneumothorax. Possible trace right pleural effusion. IMPRESSION: No acute cardiopulmonary findings. Irregular. ACT 112: Negative or not required by law. Electronically signed by: Mike Zuniga M.D. 11/19/2020 5:37 PM
[2020-11-19] MEDS ORDERED: ACETAMINOPHEN 325 MG TAB PO STA (20:09)
--- NOTE | 2020-11-19 20:15 | History & Physical Report ---
Date of Service November 19, 2020 Assessment & Plan (1) Fall: Plan: Mrs. Truong is an 85 yo woman with a PHMx of atrial fibrillation who presented to [facility] after sustaining a fall in her home. - As for the etiology of the fall, mechanical seems to be unlikely. - Likely represents a syncopal episode. - Given history of A-fib, transient arrhythmia is possible. Pacer Interrogation ordered. Cardiac Monitoring. - Hypotension unlikley, as patient's BP was elevated on arrival to department - Orthostasis is possible, however patient denied any preceding lightheadedness, graying of vision - QT interval was not prolonged - No apparent post-ictal state on exam, no seizure history. Neurologic syncope unlikely - BG was slightly low at 77 on admission -patient is not on any anti- glycemics, although she reported no having consumed any food prior to falling - fortunately imaging was all negative, no acute injuries sustained - PT/OT consults ordered - suspect patient has a great deal of underlying deconditioning and may benefit from rehab stay vs. personal fci placement, as she currently lives alone. - Recommend [facility]. (2) Chronic kidney disease, stage IV (severe): Plan: - Cr 1.44 on admission; baseline value Cr 1.5-1.8 - renally dose meds as appropriate (3) Atrial fibrillation: Plan: - not in RVR; pacemaker in place - anticoagulated on Eliquis - rate controlled with metoprolol succinate - digoxin level WNL, continue home dose (4) Systolic CHF, chronic: Plan: - continue home lasix and beta william - conservative IV hydration (5) Troponin level elevated: Plan: - trop level detectable (but not above normal threshold) at 0.038 on admission - patient denied chest pain - EKG showing some ST segment depression and T wave inversions, however this appears unchanged from EKG on 10/14/20 - trend levels (6) Elevated serum protein level: Plan: - serum protein level elevated to 8.8 - consider work up for multiple myeloma as outpatient (7) Depression: Plan: - continue home dose sertraline DVT ppx: on Eliquis Diet: Low sodium Dispo: Med/Surg with tele Code: DNR/DNI, I discussed with patient History of Present Illness Primary Care Provider: Patti James MD Mrs. Truong is an 85 yo F with a PMHx of A-fib on anticoagulation with Lydia who was brought to the [facility] ED after falling in her home today. She was making lunch for herself in the kitchen, and the next instant she realized she had fallen to the ground and her walker was laying atop her. She does not recall tripping over anything. She does not recall being lightheaded or dizzy; she did not notice any graying of her vision, nor did she feel any palpitations prior to going down. She is unsure if she lost consciousness. She did strike her head, and reported bilateral leg pain on arrival to the ED. She insists she was in her usual state of health leading up until this fall - no cold symptoms. Her legs did feel heavy for the past few days - she believes they simply gave way on her. She has a PMHx of frequent falls - she does use a walker for ambulation around her house. She lives alone at home; she denies any sick contacts. She was fully vaccinated against COVID 19. In the ED, she was afebrile; HR was 60, BP was elevated to 193/84. RR was 20, O2 sat 95% on room air. Her blood sugar was 77. Her CBC and coags were normal. Her Na was mildly low at 135. Her Cr was 1.44, BUN at 40. Trop was detectable at 0.038. Total protein was elevated to 8.8. TSH was normal. UA was not concerning for infection. Digoxin level was WNL. COVID neg. Her EKG did show a LBBB with some ST segment depression and T wave inversions - however it appears to be unchanged from study on 10/14/20. CXR showed a possible trace R pleural effusion. Head CT was negative for acute bleed or fracture. C-spine CT showing no acute fracture or dislocation. Femur, knee, pelvis, and b/l tib/fib xrays showed no evidence of acute fractures or dislocations. Patient was given a 500ml normal saline bolus and 650mg tylenol. Allergies Allergy/AdvReac Type Severity Reaction Status Date / Time Iodinated Contrast Media Allergy Severe Difficulty Verified 11/19/20 16:34 Breathing, Severe Hives Sulfa (Sulfonamide Allergy Mild . Verified 11/19/20 16:34 Antibiotics) cephalexin Allergy Unknown Unknown Verified 11/19/20 16:34 diphenhydramine Allergy Unknown DOES NOT Verified 11/19/20 16:34 REMEMBER potassium chloride Allergy Unknown unknown Verified 11/19/20 16:34 mushroom Allergy Unknown Verified 11/19/20 16:34 Home Medications Medication Instructions Recorded Confirmed Type allopurinol 100 mg tablet 100 mg PO QAM 06/20/19 11/19/20 History artificial tears(hypromellose) 0.3 1 drp OPB QID PRN 06/20/19 11/19/20 History % eye drops multivit with 1 tab PO QAM 06/20/19 11/19/20 History zhasnxhk-fzyf-GA-lutein 8 mg iron-400 mcg-300 mcg tablet (Centrum Silver Women) nitroglycerin 0.4 mg sublingual 0.4 mg SUBLINGUAL DIRECTED PRN 06/20/19 11/19/20 History tablet (Nitrostat) omeprazole 20 mg capsule,delayed 20 mg PO QAM 06/20/19 11/19/20 History release vit C 250 mg-vit E 90 mg-zinc 40 1 tab PO BID 06/20/19 11/19/20 History mg-copper 1 vv-jkyiho-rfjoql capsule (PreserVision AREDS-2) apixaban 2.5 mg tablet (Eliquis) 2.5 mg PO BID 10/06/19 11/19/20 History digoxin 125 mcg (0.125 mg) tablet 125 mcg PO 3XWK 10/06/19 11/19/20 History furosemide 20 mg tablet 20 mg PO Q OTHER DAY 10/06/19 11/19/20 History metoprolol succinate 100 mg 100 mg PO BID 10/06/19 11/19/20 History tablet,extended release 24 hr sertraline 25 mg tablet 25 mg PO HS 10/06/19 11/19/20 History lorazepam 0.5 mg tablet 0.5 mg PO HS 3 Days #3 tab 10/10/19 11/19/20 Rx metoprolol succinate 25 mg 25 mg PO AMPM 11/19/20 11/19/20 History tablet,extended release 24 hr Past Med/Surg History Medical History (Updated 11/19/20 @ 21:56 by Daphnie Jain MD) Abnormal stress test Ambulatory dysfunction Atrial fibrillation Bilateral leg edema Chronic kidney disease, stage IV (severe) Closed fracture of right distal fibula Depression Dizziness DJD (degenerative joint disease) Fall GI bleed Gouty arthritis Hemarthrosis Hip hematoma, left Left knee DJD Osteoarthritis Pacemaker Right rib fracture Systolic CHF, chronic Weakness Social History Smoking Status: Never smoker Hx Alcohol Use: No Hx Substance Use: No Preferred Language: Welsh Communication Ability: Effective College Director Required: No Beliefs That Will Affect Care: None marital status: / Current Living Situation: Alone Other Information That Helps Us Care for You: No Feels Safe at Home: Yes Safety Concerns: Feels Safe At This Time Assistive Devices: Walker Review of Systems Musculoskeletal: + bilateral leg pain Neurologic: + headache Physical Exam Constitutional: WD/WN, vitals as above cooperative; no acute distress Eyes: + anicteric sclerae ENMT: external ear and nose normal, oropharynx normal Neck: trachea midline Respiratory: normal respiratory effort, lungs clear to auscultation no cough Auscultation: + crackles (fine, RLL) Cardiovascular: Rate/Rhythm: regular rate and regular rhythm Heart Sounds: normal S1, normal S2 and + murmur (systolic ejection) Extremities: + pedal edema (trace, b/l) Chest (Breasts): Chest: + pacemaker Gastrointestinal (Abdomen): normal bowel sounds, soft, nontender, no hepatosplenomegaly + Colostomy bag in place, functioning Musculoskeletal: Head/Neck/Chest: normocephalic and head atraumatic b/l lower extremities tender to palpation Skin: no rashes, warm and dry Psychiatric: A+Ox3, euthymic affect Results & Data Results & Data ([facility]) Vital Signs (Past 12 Hours) Vital Signs Temp Pulse Pulse Resp BP BP Pulse Ox 11/19/20 17:33 60 20 210/91 H 95 11/19/20 15:44 68 60 20 193/84 H 90 11/19/20 14:58 36.7 C 60 21 193/84 H 94 Supervising Physician Co-Signing Physician Notes Attending addendum: I have physically seen this patient, have supervised the medical residents activities, and agree with the H&P unless as otherwise noted. Assessment and Plan: Status post fall/generalized weakness- Mechanical fall versus syncope The patient will be admitted to telemetry for serial cardiac enzymes, serial EKG's, cardiac rhythm monitoring and a 2-D echocardiogram with Dopplers. Pacer interrogation pending, history of A. fib Hypoglycemia as potential cause, with entrance blood sugar 77, will follow serially Consult PT and OT micrographics services supervisor consult to assess current living situation whether he she would be acceptable to return CKD stage IV- Creatinine 1.44 upon admission, slightly better than baseline of 1.5-1.8 Follow serially Chronic HFrEF/atrial fibrillation/detectable troponin level- The patient will be admitted to telemetry for serial cardiac enzymes, serial EKG's, cardiac rhythm monitoring and a 2-D echocardiogram with Dopplers. Continue Eliquis, metoprolol succinate, digoxin, furosemide. Follow serial laboratories Remaining orders and notations as noted Resident Activity Tracking Resident Involvement: Resident Care Provided Care Provided: Adult Hospital Medicine (1) Depression Depression Type: unspecified Qualified Code(s): F32.9 - Major depressive disorder, single episode, unspecified
[2020-11-19] MEDS ORDERED: ONDANSETRON INJ 2 MG/ML 2 ML VIAL IV PRN (23:07)
[2020-11-19] MEDS ORDERED: POLYETHYLENE (MIRALAX) 17 GM PACK PO PRN (23:07)
[2020-11-20] MEDS: LORazepam 0.5 MG TAB PO SCH ×2 (00:36→21:34)
[2020-11-20] MEDS: APIXABAN 2.5 MG TAB PO SCH ×3 (00:37→21:34)
[2020-11-20] MEDS: METOPROLOL SUCC 50MG EXT REL TAB PO SCH ×3 (00:39→21:34)
[2020-11-20] MEDS: METOPROLOL SUCC 25MG EXT REL TAB PO SCH ×3 (00:40→21:34)
[2020-11-20] MEDS: SERTRALINE HCL 50 MG TABLET PO SCH ×2 (00:41→21:34)
[2020-11-20] MEDS: DICLOFENAC SOD 1% GEL 100 GM TUBE EXT PRN (02:45)
[2020-11-20 06:59] LABS: BUN Creatinine Ratio 32.4 (10-20); Calcium 8.7 mg/dl (8.5-10.1); Creatinine Clr Calc Pharmacy 27.6 ml/min; Est GFR (African American) 42.7 ml/min; Est GFR (Non-African American) 36.9 ml/min; Potassium 3.9 mmol/L (3.5-5.1)
[2020-11-20 07:15] LABS: Troponin I 0.052 ng/ml (0-0.045)
[2020-11-20] MEDS: FUROSEMIDE 20 MG TAB PO SCH (08:57)
[2020-11-20] MEDS: allopurinoL 100 MG TAB PO SCH (08:57)
[2020-11-20] MEDS: PANTOprazole 40 MG TAB PO SCH (08:59)
[2020-11-20] MEDS: ACETAMINOPHEN 325 MG TAB PO PRN (08:59)
[2020-11-20] MEDS ORDERED: DIGOXIN 0.125 MG TAB PO SCH (09:00)
--- NOTE | 2020-11-20 14:15 | Hospitalist Progress Note ---
Date of Service November 20, 2020 Assessment & Plan (1) Fall: Plan: Sounds mechanical in nature to me. She can describe the fall to me, reports getting tangled in her walker at home. She remembers striking her head. Possible short loss of consciousness after that, but patient isn't sure. No prodrome to indicate arrhythmia, vasovagal. - PT/OT recommend SNF or inpatient rehab. (2) Atrial fibrillation: Plan: HR presently on the lower end of normal (but paced). I do wonder if her HR may not be elevating appropriately with exertion. - Continue beta-william for now - Continue digoxin (3) Systolic CHF, chronic: Plan: Echo in 06/2019 showed EF 40 - 45% with global hypokinesis. Moderate LVH. - Presently appears euvolemic. - Continue furosemide 20 mg PO every other day (4) Chronic kidney disease, stage IV (severe): Plan: Baseline Cr is ~ 1.4 - 1.8. - Presently at/better than baseline at 1.3. - Monitor (5) Depression: Plan: - Continue sertraline (6) DVT prophylaxis: Plan: Apixaban Admission and Anticipated Discharge Date Admission Date: November 19, 2020 Subjective Very pleasant. No major pain at this time. Reports no fevers/chills, chest pain, shortness of breath, abdominal pain, nausea, or vomiting. Physical Exam Constitutional: WD/WN, vitals as above Eyes: EOM intact bilaterally; no conjunctival abnormality ENMT: external ear and nose normal, oropharynx normal Neck: trachea midline, no thyromegaly normal visual inspection Respiratory: normal respiratory effort, lungs clear to auscultation no respiratory distress Cardiovascular: RRR, no murmur, no edema Gastrointestinal (Abdomen): Inspection/Auscultation: abdomen normal to inspection; abdomen not distended Musculoskeletal: no cyanosis or clubbing, extremities motor strength 5/5 Skin: no rashes, warm and dry Neurologic: moves all extremities and awake Psychiatric: Orientation: alert, oriented to person and cooperative Results & Data Results & Data ([facility]) Vital Signs (Past 12 Hours) Vital Signs Temp Pulse Pulse Pulse Resp BP BP 11/20/20 12:00 36.7 C 59 L 18 164/76 H 11/20/20 11:20 60 11/20/20 08:57 60 08/04/21 07:50 36.6 C 60 18 184/78 H 185/81 H 11/20/20 03:07 36.3 C L 60 144/68 H Pulse Ox 11/20/20 12:00 97 11/20/20 11:20 11/20/20 08:57 11/20/20 07:50 95 11/20/20 03:07 96 PG Care Time/CCT Total # of Minutes Spent Total Time Spent with Patient: Total time spent is greater than 50% in coordination of care (as documented) at patient's floor/unit and/or counseling patient: Coding Level of Care Code 87526 Subseq Hosp Care Lvl 3 Diagnoses Fall W19.XXXA Atrial fibrillation I48.91 Systolic CHF, chronic I50.22 Chronic kidney disease, stage IV (severe) N18.4 Depression F32.9 Depression Type: unspecified DVT prophylaxis Z29.9 (1) Depression Depression Type: unspecified Qualified Code(s): F32.9 - Major depressive disorder, single episode, unspecified
--- NOTE | 2020-11-20 22:53 | Billing Data ---
Date of Service November 20, 2020 Coding Level of Care Code INT OBSERVATION CARE 70M LVL 3
[2020-11-21] MEDS: allopurinoL 100 MG TAB PO SCH (08:28)
[2020-11-21] MEDS: APIXABAN 2.5 MG TAB PO SCH ×2 (08:28→20:54)
[2020-11-21] MEDS: METOPROLOL SUCC 50MG EXT REL TAB PO SCH ×2 (08:29→20:54)
[2020-11-21] MEDS: METOPROLOL SUCC 25MG EXT REL TAB PO SCH ×2 (08:29→20:54)
[2020-11-21] MEDS: PANTOprazole 40 MG TAB PO SCH (08:30)
--- NOTE | 2020-11-21 14:33 | Hospitalist Progress Note ---
Date of Service November 21, 2020 Assessment & Plan (1) Fall: Plan: Sounds mechanical in nature to me. She can describe the fall to me, reports getting tangled in her walker at home. She remembers striking her head. Remembers her cup of water not spilling. Possible short loss of consciousness after that, but patient isn't sure. No prodrome to indicate arrhythmia, vasovagal. - PT/OT recommend SNF or inpatient rehab. (2) Atrial fibrillation: Plan: HR presently on the lower end of normal (but paced). I do wonder if her HR may not be elevating appropriately with exertion. - Continue beta-william for now - Hold digoxin (3) Systolic CHF, chronic: Plan: Echo in 06/2019 showed EF 40 - 45% with global hypokinesis. Moderate LVH. - Presently appears euvolemic. - Continue furosemide 20 mg PO every other day (4) Chronic kidney disease, stage IV (severe): Plan: Baseline Cr is ~ 1.4 - 1.8. - Presently at/better than baseline at 1.3. - Monitor (5) Depression: Plan: - Continue sertraline (6) DVT prophylaxis: Plan: Apixaban Admission and Anticipated Discharge Date Admission Date: November 21, 2020 Subjective Doing well today. No major pain today. Reports no fevers/chills, chest pain, shortness of breath, abdominal pain, nausea, or vomiting. Physical Exam Constitutional: WD/WN, vitals as above Eyes: EOM intact bilaterally; no conjunctival abnormality ENMT: external ear and nose normal, oropharynx normal Neck: trachea midline, no thyromegaly normal visual inspection Respiratory: normal respiratory effort, lungs clear to auscultation no respiratory distress Cardiovascular: RRR, no murmur, no edema Gastrointestinal (Abdomen): Inspection/Auscultation: abdomen normal to inspection; abdomen not distended Musculoskeletal: no cyanosis or clubbing, extremities motor strength 5/5 Skin: no rashes, warm and dry Neurologic: moves all extremities and awake Psychiatric: Orientation: alert, oriented to person and cooperative Results & Data Results & Data ([facility]) Vital Signs (Past 12 Hours) Vital Signs Temp Pulse Pulse Resp BP BP Pulse Ox 11/21/20 11:34 36.5 C 60 18 174/75 H 97 11/21/20 07:55 60 11/21/20 07:42 36.8 C 63 18 181/85 H 182/81 H 96 11/21/20 04:00 36.5 C 59 L 18 177/76 H 95 PG Care Time/CCT Total # of Minutes Spent Total Time Spent with Patient: Total time spent is greater than 50% in coordination of care (as documented) at patient's floor/unit and/or counseling patient: Coding Level of Care Code 82168 Subseq Hosp Care Lvl 2 Diagnoses Fall W19.XXXA Atrial fibrillation I48.91 Systolic CHF, chronic I50.22 Chronic kidney disease, stage IV (severe) N18.4 Depression F32.9 Depression Type: unspecified DVT prophylaxis Z29.9 (1) Depression Depression Type: unspecified Qualified Code(s): F32.9 - Major depressive disorder, single episode, unspecified
[2020-11-21] MEDS: LORazepam 0.5 MG TAB PO SCH (20:54)
[2020-11-21] MEDS: SERTRALINE HCL 50 MG TABLET PO SCH (20:55)
[2020-11-21] MEDS: ACETAMINOPHEN 325 MG TAB PO PRN (20:55)
[2020-11-22] MEDS: DICLOFENAC SOD 1% GEL 100 GM TUBE EXT PRN ×2 (01:02→20:50)
[2020-11-22] MEDS: ACETAMINOPHEN 325 MG TAB PO PRN (01:02)
--- NOTE | 2020-11-22 06:11 | Electrocardiogram Report ---
Test Reason : Blood Pressure : / mmHG Vent. Rate : 060 BPM Atrial Rate : 060 BPM P-R Int : 186 ms QRS Dur : 160 ms QT Int : 446 ms P-R-T Axes : 118 -69 100 degrees QTc Int : 446 ms AV dual-paced rhythm Abnormal ECG When compared with ECG of 06-OCT-2019 21:57, AV dual-paced rhythm has replaced Atrial fibrillation Vent. rate has decreased BY 31 BPM Confirmed by Efrain Díaz ([id number]) on 11/22/2020 6:11:20 AM Referred By: Confirmed By:Efrain Díaz
[2020-11-22] MEDS: FUROSEMIDE 20 MG TAB PO SCH (08:05)
[2020-11-22] MEDS: METOPROLOL SUCC 50MG EXT REL TAB PO SCH ×2 (08:05→20:47)
[2020-11-22] MEDS: allopurinoL 100 MG TAB PO SCH (08:05)
[2020-11-22] MEDS: PANTOprazole 40 MG TAB PO SCH (08:05)
[2020-11-22] MEDS: METOPROLOL SUCC 25MG EXT REL TAB PO SCH (08:05)
[2020-11-22] MEDS: APIXABAN 2.5 MG TAB PO SCH ×2 (08:05→20:46)
--- NOTE | 2020-11-22 09:48 | Cardiology Consultation ---
Date of Consultation November 22, 2020 History of Present Illness Reason for Consultation: Syncope versus fall history of pacemaker and atrial arrhythmias Attending Physician: Andre Miranda MD History of Present Illness Patient was admitted with what appears to be a fall as best we can tell. She was walking with her walker she had a cup of water in her hand she put the cup of water down she believes in the next thing she knows she was on the floor with a walker on top of her. Interestingly the couple water did not spill at all. She had no prodrome that she is aware of prior to the episode she denies any seizure activity. She denies any tunnel vision prior to the episode palpitations or fluttering. We did interrogate her pacemaker which is working normally her heart rate h istograms look appropriate for someone who really does not do a lot during the day in fact she sits most of the day. She notes occasional orthostatic symptoms when she gets up out of bed at night. But during the day she denies any significant lightheadedness or dizziness on a regular basis. She denies any increasing shortness of breath. She has any chest pain. She does have significant pain in her legs which she describes as [id number] and a burning sensation. This was present even before she came in the hospital. She denies any bleeding bruising dark stools or black stools on low-dose anticoagulation. Her appetites been stable her weight has been stable. She does live at home by herself and does not wish to consider assisted living. She does have a woman who comes in every other week who does her laundry and cleans for her. Her daughter does her grocery shopping. She does not leave the house otherwise. The rest of a complete review of systems is otherwise negative Allergies Allergy/AdvReac Type Severity Reaction Status Date / Time Iodinated Contrast Media Allergy Severe Difficulty Verified 11/19/20 16:34 Breathing, Severe Hives Sulfa (Sulfonamide Allergy Mild . Verified 11/19/20 16:34 Antibiotics) cephalexin Allergy Unknown Unknown Verified 11/19/20 16:34 diphenhydramine Allergy Unknown DOES NOT Verified 11/19/20 16:34 REMEMBER potassium chloride Allergy Unknown unknown Verified 11/19/20 16:34 mushroom Allergy Unknown Verified 11/19/20 16:34 Home Medications Medication Instructions Recorded Confirmed Type allopurinol 100 mg tablet 100 mg PO QAM 06/20/19 11/19/20 History artificial tears(hypromellose) 0.3 1 drp OPB QID PRN 06/20/19 11/19/20 History % eye drops multivit with 1 tab PO QAM 06/20/19 11/19/20 History yryvjjyn-irib-CE-lutein 8 mg iron-400 mcg-300 mcg tablet (Centrum Silver Women) nitroglycerin 0.4 mg sublingual 0.4 mg SUBLINGUAL DIRECTED PRN 06/20/19 11/19/20 History tablet (Nitrostat) omeprazole 20 mg capsule,delayed 20 mg PO QAM 06/20/19 11/19/20 History release vit C 250 mg-vit E 90 mg-zinc 40 1 tab PO BID 06/20/19 11/19/20 History mg-copper 1 [id number]-[id number] capsule (PreserVision AREDS-2) apixaban 2.5 mg tablet (Eliquis) 2.5 mg PO BID 10/06/19 11/19/20 History digoxin 125 mcg (0.125 mg) tablet 125 mcg PO 3XWK 10/06/19 11/19/20 History furosemide 20 mg tablet 20 mg PO Q OTHER DAY 10/06/19 11/19/20 History metoprolol succinate 100 mg 100 mg PO BID 10/06/19 11/19/20 History tablet,extended release 24 hr sertraline 25 mg tablet 25 mg PO HS 10/06/19 11/19/20 History lorazepam 0.5 mg tablet 0.5 mg PO HS 3 Days #3 tab 10/10/19 11/19/20 Rx metoprolol succinate 25 mg 25 mg PO AMPM 11/19/20 11/19/20 History tablet,extended release 24 hr Patient History Medical History Abnormal stress test Ambulatory dysfunction Atrial fibrillation Bilateral leg edema Chronic kidney disease, stage IV (severe) Closed fracture of right distal fibula Depression Dizziness DJD (degenerative joint disease) Fall GI bleed Gouty arthritis Hemarthrosis Hip hematoma, left Left knee DJD Osteoarthritis Pacemaker Right rib fracture Systolic CHF, chronic Weakness Social History Smoking Status: Never smoker Hx Alcohol Use: No Hx Substance Use: No Preferred Language: [place] Citizen Communication Ability: Effective Document Control Associate Required: No Beliefs That Will Affect Care: None marital status: / Current Living Situation: Alone Other Information That Helps Us Care for You: No Feels Safe at Home: Yes Safety Concerns: Feels Safe At This Time Assistive Devices: Walker Results & Data ([facility]) Vital Signs (Past 12 Hours) Vital Signs Temp Pulse Pulse Resp BP Pulse Ox 11/22/20 07:40 60 11/22/20 04:00 36.6 C 60 20 180/77 H 94 11/21/20 23:51 60 11/21/20 22:46 36.5 C 60 20 184/75 H 93 She is awake alert and oriented x3. She was in no acute distress HEENT 2+ carotid upstrokes Lungs: Clear to auscultation bilaterally no rales rhonchi or wheezing Heart: Regular rate and rhythm no appreciable murmurs rubs or gallops Abdomen: Soft nontender distended positive bowel sounds Extremities trace bilateral lower extremity edema Impressions: 1A. Syncope versus fall 1b. chronic diastolic heart failure 2. Chronic kidney disease with a baseline creatinine of 1.7 3. Paroxysmal atrial fibrillation and atrial flutter 4. Dual-chamber pacemaker secondary to Syncope 5. Stress test in 2018 with moderate inferior wall ischemia and preserved left ventricular systolic function with an EF in the range of 64% 6. Mild LV dysfunction in 2020 but today her carotid upstrokes feel normal I did review her device interrogation she had no significant arrhythmias her heart rate histograms look appropriate given the fact she does not do a lot of activity the device is otherwise functioning normally. On teletypesetter monitor she is AV paced. There is been no documented atrial arrhythmias since she has been here in the hospital. I did discuss with Dr. Miranda that we could increase her heart rate from a paced rhythm of 60 bpm to a paced rhythm of 70 bpm. [employer] to do this while she is in the hospital if not we can do it as an outpatient. She has had some episodes of hypertension in the hospital I think this is related to anxiety. Outside of the hospital her blood pressures tend to be well controlled and I would avoid aggressively lowering her blood pressure given the concern that we would make her orthostatic. The plan is for her to go to rehab I also discussed with her that she may benefit from a walker with a seat such that if she has any lightheadedness or dizziness she can sit down. She remains on low-dose apixaban. This is the first fall she has had an extended period of time. I do wonder if the peripheral neuropathy in her legs is not substantially contributing to her gait instability. Dr. Miranda and I discussed stopping her digoxin and I feel that is appropriate. She can otherwise remain on Toprol 100 mg twice daily. Thank you for allowing us to participate in her care
--- NOTE | 2020-11-22 16:09 | Hospitalist Progress Note ---
Date of Service November 22, 2020 Assessment & Plan (1) Fall: Plan: Sounds mechanical in nature to me. She can describe the fall to me, reports getting tangled in her walker at home. She remembers striking her head. Remembers her cup of water not spilling. Possible short loss of consciousness after that, but patient isn't sure. No prodrome to indicate arrhythmia, vasovagal. - PT/OT recommend SNF or inpatient rehab. (2) Atrial fibrillation: Plan: HR presently on the lower end of normal (but paced). I do wonder if her HR may not be elevating appropriately with exertion. - Continue beta-william (Toprol XL 100 mg PO BID) - Hold digoxin - Discussed with Dr. Milligan. Will have [employer] rep increase baseline rate to 70 bpm. (3) Systolic CHF, chronic: Plan: Echo in 06/2019 showed EF 40 - 45% with global hypokinesis. Moderate LVH. - Presently appears euvolemic. - Continue furosemide 20 mg PO every other day (4) Chronic kidney disease, stage IV (severe): Plan: Baseline Cr is ~ 1.4 - 1.8. - Presently at/better than baseline at 1.3. - Monitor (5) Depression: Plan: - Continue sertraline (6) DVT prophylaxis: Plan: Apixaban Admission and Anticipated Discharge Date Admission Date: November 21, 2020 Subjective Doing well today. No major issues. Reports no fevers/chills, chest pain, shortness of breath, abdominal pain, nausea, or vomiting. Physical Exam Constitutional: WD/WN, vitals as above Eyes: EOM intact bilaterally; no conjunctival abnormality ENMT: external ear and nose normal, oropharynx normal Neck: trachea midline, no thyromegaly normal visual inspection Respiratory: normal respiratory effort, lungs clear to auscultation no respiratory distress Cardiovascular: RRR, no murmur, no edema Gastrointestinal (Abdomen): Inspection/Auscultation: abdomen normal to inspection; abdomen not distended Musculoskeletal: no cyanosis or clubbing, extremities motor strength 5/5 Skin: no rashes, warm and dry Neurologic: moves all extremities and awake Psychiatric: Orientation: alert, oriented to person and cooperative Results & Data Results & Data ([facility]) Vital Signs (Past 12 Hours) Vital Signs Temp Pulse Pulse Resp BP BP Pulse Ox 11/22/20 15:03 60 11/22/20 14:55 36.5 C 60 20 169/71 H 93 11/22/20 11:30 36.5 C 60 18 128/76 96 11/22/20 07:40 60 PG Care Time/CCT Total # of Minutes Spent Total Time Spent with Patient: Total time spent is greater than 50% in coordination of care (as documented) at patient's floor/unit and/or counseling patient: Coding Level of Care Code 42524 Subseq Hosp Care Lvl 3 Diagnoses Fall W19.XXXA Atrial fibrillation I48.91 Systolic CHF, chronic I50.22 Chronic kidney disease, stage IV (severe) N18.4 Depression F32.9 Depression Type: unspecified DVT prophylaxis Z29.9 (1) Depression Depression Type: unspecified Qualified Code(s): F32.9 - Major depressive disorder, single episode, unspecified
[2020-11-22] MEDS: LORazepam 0.5 MG TAB PO SCH (20:46)
[2020-11-22] MEDS: SERTRALINE HCL 50 MG TABLET PO SCH (20:48)
[2020-11-23 06:59] LABS: Hematocrit (blood only) 39.9 % (37-47); Hemoglobin 13.6 g/dL (12.0-16.0); Mean Corpuscular Hemoglobin 31.6 pg (25-34); Mean Corpuscular Hgb Conc 34.1 g/dL (32-36); Mean Corpuscular Volume 92.6 fL (80-100); Mean Platelet Volume 10.1 fL (7.4-10.4); Platelet Count 185 K/uL (130-400); RDW Coefficient of Variation 14.3 % (11.5-14.5); RDW Standard Deviation 48.3 fL (36.4-46.3); Red Blood Count 4.31 M/uL (4.2-5.4); White Blood Count 6.96 K/uL (4.8-10.8)
[2020-11-23 07:26] LABS: Creatinine Clr Calc Pharmacy 24.1 ml/min; Est GFR (African American) 38.4 ml/min; Est GFR (Non-African American) 33.1 ml/min; Magnesium 1.7 mg/dl (1.8-2.4); Potassium 3.9 mmol/L (3.5-5.1)
[2020-11-23] MEDS: PANTOprazole 40 MG TAB PO SCH (08:17)
[2020-11-23] MEDS: allopurinoL 100 MG TAB PO SCH (08:17)
[2020-11-23] MEDS: METOPROLOL SUCC 50MG EXT REL TAB PO SCH (08:17)
[2020-11-23] MEDS: APIXABAN 2.5 MG TAB PO SCH (08:17)
--- NOTE | 2020-11-23 09:20 | Discharge Summary ---
Date of Service November 23, 2020 Admission HPI Per Admitting Provider Mrs. Truong is an 85 yo F with a PMHx of A-fib on anticoagulation with Lydia who was brought to the [facility] ED after falling in her home today. She was making lunch for herself in the kitchen, and the next instant she realized she had fallen to the ground and her walker was laying atop her. She does not recall tripping over anything. She does not recall being lightheaded or dizzy; she did not notice any graying of her vision, nor did she feel any palpitations prior to going down. She is unsure if she lost consciousness. She did strike her head, and reported bilateral leg pain on arrival to the ED. She insists she was in her usual state of health leading up until this fall - no cold symptoms. Her legs did feel heavy for the past few days - she believes they simply gave way on her. She has a PMHx of frequent falls - she does use a walker for ambulation around her house. She lives alone at home; she denies any sick contacts. She was fully vaccinated against COVID 19. In the ED, she was afebrile; HR was 60, BP was elevated to 193/84. RR was 20, O2 sat 95% on room air. Her blood sugar was 77. Her CBC and coags were normal. Her Na was mildly low at 135. Her Cr was 1.44, BUN at 40. Trop was detectable at 0.038. Total protein was elevated to 8.8. TSH was normal. UA was not concerning for infection. Digoxin level was WNL. COVID neg. Her EKG did show a LBBB with some ST segment depression and T wave inversions - however it appears to be unchanged from study on 10/14/20. CXR showed a possible trace R pleural effusion. Head CT was negative for acute bleed or fracture. C-spine CT showing no acute fracture or dislocation. Femur, knee, pelvis, and b/l tib/fib xrays showed no evidence of acute fractures or dislocations. Patient was given a 500ml normal saline bolus and 650mg tylenol. Admission Exam Per Admitting Provider Constitutional: WD/WN, vitals as above cooperative; no acute distress Eyes: + anicteric sclerae ENMT: external ear and nose normal, oropharynx normal Neck: trachea midline Respiratory: normal respiratory effort, lungs clear to auscultation no cough Auscultation: + crackles (fine, RLL) Cardiovascular: Rate/Rhythm: regular rate and regular rhythm Heart Sounds: normal S1, normal S2 and + murmur (systolic ejection) Extremities: + pedal edema (trace, b/l) Chest (Breasts): Chest: + pacemaker Gastrointestinal (Abdomen): normal bowel sounds, soft, nontender, no hepatosplenomegaly + Colostomy bag in place, functioning Musculoskeletal: Head/Neck/Chest: normocephalic and head atraumatic b/l lower extremities tender to palpation Skin: no rashes, warm and dry Psychiatric: A+Ox3, euthymic affect Principal Diagnosis mechanical fall Discharge Exam Temp Pulse Resp BP Pulse Ox 36.4 C L 60 20 157/76 H 96 11/23/20 02:55 11/23/20 07:19 11/23/20 02:55 11/23/20 02:55 11/23/20 02:55 Patient is afebrile. She is hypertensive at 157/76, but is asymptomatic. Constitutional average body habitus; no acute distress ENMT Ears: no hearing impairment Neck normal visual inspection Respiratory normal respiratory effort, lungs clear to auscultation Cardiovascular Rate/Rhythm: regular rate and regular rhythm Vessels: no JVD Extremities: + edema (non-pitting BLE ) Gastrointestinal (Abdomen) Inspection/Auscultation: normal bowel sounds Percussion/Palpation: abdomen soft; abdomen nontender stoma is red with liquid brown stool output Musculoskeletal Head/Neck/Chest: normocephalic Skin no rashes, warm and dry Psychiatric A+Ox3, euthymic affect Discharge Data Allergies Allergy/AdvReac Type Severity Reaction Status Date / Time Iodinated Contrast Media Allergy Severe Difficulty Verified 11/19/20 16:34 Breathing, Severe Hives Sulfa (Sulfonamide Allergy Mild . Verified 11/19/20 16:34 Antibiotics) cephalexin Allergy Unknown Unknown Verified 11/19/20 16:34 diphenhydramine Allergy Unknown DOES NOT Verified 11/19/20 16:34 REMEMBER potassium chloride Allergy Unknown unknown Verified 11/19/20 16:34 mushroom Allergy Unknown Verified 11/19/20 16:34 Consultations 11/19/20 19:55 ED Decision to Admit Stat 11/21/20 17:02 Consult Cardiology Routine Ordered Studies 11/19/20 15:22 CT cervical spine wo con Stat CT head/brain wo con Stat Hospital Course (1) Fall: Sounds mechanical in nature to me. Patient reports getting tangled in her walker at home. She remembers striking her head. Remembers her cup of water not spilling. Possible short loss of consciousness after that, but patient isn't sure. No prodrome to indicate arrhythmia, vasovagal. - PT/OT recommend SNF or inpatient rehab. Plan for discharge to [facility] today for rehab. (2) Atrial fibrillation: HR presently on the lower end of normal (but paced). HR ? may not be elevating appropriately with exertion. - Continue beta-william (Toprol XL 100 mg PO BID) - Hold digoxin on discharge. Defer to Dr. Milligan as an outpatient if patient is to resume. - Discussed with Dr. Milligan. Will have [employer] rep increase baseline rate to 70 bpm. If cannot be done prior to discharge, will plan for outpatient follow-up at his office for rate change. (3) Systolic CHF, chronic: Echo in 06/2019 showed EF 40 - 45% with global hypokinesis. Moderate LVH. - Presently appears euvolemic. - Continue furosemide 20 mg PO every other day - Does have some baseline non-pitting BLE edema. Discussed elevating her legs several times daily throughout the daily. Would probably benefit from compression stockings, but she lives alone and would likely have difficulty getting them on herself. (4) Chronic kidney disease, stage IV (severe): Baseline Cr is ~ 1.4 - 1.8. - at baseline - 1.42 today (5) Depression: - Continue sertraline (6) DVT prophylaxis: Apixaban Discharge to [facility] today for rehab. Follow-up with event host Dr. Milligan and PCP Dr. James in 1 week. Total Time Total Time Spent Total Time Spent (In Minutes): >30 minutes Total Time Includes: Examination of the Patient, Discharge Planning, Medication Reconciliation and Communication With Other Providers Discharge Plan Discharge Items Patient Disposition: Transfer Inpatient Rehab Fac Reason For Visit: FALL Discharge Diagnosis: Fall Condition on Discharge: Good Activity: Resume your previous activity Activity Comment: Per PT recommendations Bathing: No limitations Exercise/Sports: Gradually increase as tolerated Weightbearing: Full weightbearing Non-emergency contact: Primary Care Provider Call non-emergency contact if: you have any medication questions and your symptoms worsen Follow-up/Referrals: Patti James MD [Primary Care Provider] - Diet: Low Sodium (2gm) Addtl Attending Provider Instructions: Follow-up with Dr. Milligan in 1 week. Follow-up with Dr. James in 1 week. Pending Studies at Discharge: No Stand-Alone Forms: [facility] Skilled Items Patient informed of condition?: Yes DNR: Yes Discharge Level of Care: Acute rehab Communicable Disease: No Discharge Prognosis: Improving Lines: None Urinary Catheter: No Medications and DC Order Prescriptions: New lorazepam 0.5 mg Tablet 0.5 mg PO HS 14 Days Qty: 14 RF: 0 Continued allopurinol 100 mg tablet 100 mg PO QAM RF: 0 omeprazole 20 mg capsule,delayed release(DR/EC) 20 mg PO QAM RF: 0 Centrum Silver Women 8 mg iron-400 mcg-300 mcg Tablet 1 tab PO QAM RF: 0 PreserVision AREDS-2 [id number] xj-vdeu-[id number]-mg Capsule 1 tab PO BID RF: 0 nitroglycerin [Nitrostat] 0.4 mg Tablet, Sublingual 0.4 mg sublingual DIRECTED PRN (Reason: Chest Pain) RF: 0 artificial tears(hypromellose) 0.3 % Drops 1 drp OPB QID PRN (Reason: Dry Eye(S)) RF: 0 metoprolol succinate 100 mg tablet extended release 24 hr 100 mg PO BID RF: 0 sertraline 25 mg tablet 25 mg PO HS RF: 0 Eliquis 2.5 mg tablet 2.5 mg PO BID RF: 0 furosemide 20 mg tablet 20 mg PO Q OTHER DAY RF: 0 lorazepam 0.5 mg tablet 0.5 mg PO HS 3 Days Qty: 3 RF: 0 Discontinued digoxin 125 mcg (0.125 mg) tablet 125 mcg PO 3XWK RF: 0 metoprolol succinate 25 mg tablet extended release 24 hr 25 mg PO AMPM RF: 0 Discharge Orders: Discharge Order (Routine); Ordered 11/23/20 Ordered By: Miri Dawson Admission Data Admit Date/Time: 11/21/20 12:12 Attending Provider: Alessandro Norton Admit Provider: Daphnie Jain Primary Care Provider: Patti James Other Providers: Andre Miranda ; [facility] ; [facility] ; Shelly [facility] at [place] ; Darío Milligan Supervising Physician Co-Signing Physician Notes Patient seen and examined on the day of discharge. I agree with the discharge summary by Miri MILLS. I have reviewed the chart including labs, imaging and plans for discharge. patient has done fine while here, no syncope, no falls likely a mechanical fall with her tripping plans made for SNF rehab - Fall: likely mechanical, never lost consciousness, go to SNF rehab - Atrial fibrillation: continue Toprol, will have pacemaker adjusted to 70bpm as outpatient to provide faster rates when walking follow up with Dr. Milligan Coding Level of Care Code D/C DAY MANAGEMENT >30 MINS Medical Decision Making Moderate Complexity Diagnoses Fall W19.XXXA Atrial fibrillation I48.91 Systolic CHF, chronic I50.22 Chronic kidney disease, stage IV (severe) N18.4 Depression F32.9 Depression Type: unspecified DVT prophylaxis Z29.9
--- NOTE | 2020-12-04 10:38 | Coding Query ---
CODING QUERY To promote full compliance with coding requirements relating to patient care, provider participation is requested in all cases of sand wheeler uncertainty. Please assist us with the question(s) below: Coding Question(s): The Discharge Summary documents in the Principal Diagnosis area, "mechanical fall" with documentation in the Hospital Course of, "Fall: Sounds mechanical in nature to me. Patient reports getting tangled in her walker at home. She remembers striking her head. Remembers her cup of water not spilling. Possible short loss of consciousness after that, but patient isn't sure. No prodrome to indicate arrhythmia, vasovagal. - PT/OT recommend SNF or inpatient rehab. Plan for discharge to [facility] for rehab". Please specify below, in your clinical opinion. ( x ) Mechanical Fall - Admission for patient who had recently fallen and the reason for the fall was investigated ( ) Mechanical Fall - Other: Please specify ( ) Fall due to Other: Please Specify ( ) Other: Please Specify Physician's Response(s): Thank you Jeannine Williamson Principal Diagnosis: "that condition established after study, to be chiefly responsible for occasioning the admission of the patient to the hospital for care." Co-Existing Principal Diagnosis: "when two or more diagnoses equally meet the criteria for principal diagnosis as determined by the circumstances of admission, diagnostic work up, and/or therapy provided, and the Alphabetic Index, Tabular List, or another coding guideline does not provide sequencing direction, any one of the diagnoses may be sequenced first." "When the physician has documented what appears to be a current diagnosis in the body of the record, but has not included the diagnosis in the final diagnostic statement, the physician should be asked whether the diagnosis should be added." (Source Coding Clinic 2 QTR90. p3-4) [place]
== END 2020-11-23 10:17 | DRG 92 ==
LOC: ED 14:43 → 2N 14:43 → SUATTDRO 20:09 → 2N 21:41 → SUATTDRO 11-21 12:12
DX: Z95.0 Presence of cardiac pacemaker; Z79.899 Other long term (current) drug therapy; Z79.01 Long term (current) use of anticoagulants; I50.22 Chronic systolic (congestive) heart failure; Y92.010 Kitchen of single-family (private) house as the place of occurrence of the external cause; Z88.1 Allergy status to other antibiotic agents; W18.39XA Other fall on same level, initial encounter; Z91.041 Radiographic dye allergy status; R79.89 Other specified abnormal findings of blood chemistry; Z88.8 Allergy status to other drugs, medicaments and biological substances; R51.9 Headache, unspecified; Z91.81 History of falling; Z51.81 Encounter for therapeutic drug level monitoring; F32.9 Major depressive disorder, single episode, unspecified; E16.2 Hypoglycemia, unspecified; S80.01XA Contusion of right knee, initial encounter; R29.6 Repeated falls; N18.4 Chronic kidney disease, stage 4 (severe); G62.9 Polyneuropathy, unspecified; Z66 Do not resuscitate; I48.0 Paroxysmal atrial fibrillation; Z91.018 Allergy to other foods; R55 Syncope and collapse; Y99.8 Other external cause status; I15.8 Other secondary hypertension; Z60.2 Problems related to living alone; M10.9 Gout, unspecified; Z88.2 Allergy status to sulfonamides

== ENCOUNTER 2021-05-16 11:17 | Observation (INO) ==
[2021-05-16] MEDS ORDERED: ACETAMINOPHEN 500 MG TAB PO STA (11:36)
--- NOTE | 2021-05-16 11:52 | Emergency Department Note ---
Impression & Plan Hematoma of left lower extremity, Frequent falls ED Provider Note CHIEF COMPLAINT: Fall HISTORY OF PRESENT ILLNESS: Mishel Truong is an 85 year old female with history of a-fib on Eliquis, pacer in situ, CHF, CKD4, GI bleed, colostomy, OA among others listed below who presents to the Emergency Department via EMS for evaluation after suffering a fall 6 days prior to arrival. At the time of onset, the patient was attempting to pull herself up a step into her home when she states that her legs gave out on her causing her to twist and fall on the cement. The patient states that she struck her right head but denies losing consciousness. She mainly injured her legs and was unable to get up until EMS arrived to help her. After being helped back inside, the patient declined transport for additional medical evaluation. The patient lives alone, and since then, she states that she has been using her walker to ambulate about her home, however the pain to her legs has continued to worsen and she has since developed large bruises to her left holland which has made it harder for her to get around. Due to her worsening symptoms, she called EMS to bring her to the ED for further evaluation today. Currently, the patient is noting pain to her entire bilateral legs, especially over her left holland. She otherwise denies pain to her head, neck, chest, abdomen, pelvis, back, or BUE. No numbness/tingling. She also denies recent fevers/chills, lightheadedness, dizziness, cough, shortness of breath, nausea, vomiting, diarrhea or urinary symptoms. REVIEW OF SYSTEMS: 10 systems were reviewed and were negative unless otherwise stated in HPI as above PHYSICAL EXAM: VITALS: Vitals are noted on the nurse's note and reviewed by myself. Hypertensive, additional vital signs stable. General: Resting in bed, no acute distress HEENT: Normocephalic, atraumatic, pupils 2mm and reactive to light with EOMI bilaterally, mucous membranes moist, oropharynx clear Neck: No mid-line cervical tenderness, ROM intact without pain Resp: Good inspiratory effort on room air, lung sounds clear bilaterally, no tenderness to palpation of the chest wall CV: Regular rate and rhythm, peripheral pulses palpated Back: No midline tenderness to the thoracic spine, no midline tenderness to the lumbar spine, no obvious step-offs or deformities Abd: Colostomy in place, soft, non-tender to palpation MSK/Integumentary: Large areas of ecchymosis and edema to the anterior, medial and lateral left holland with tenderness to palpation. Also with tenderness to palpation over the bilateral thighs, knees and right holland. ROM of the BLE intact but limited secondary to pain. Sensation and d/p pulses intact bilaterally. No tenderness (above baseline hx of arthritis) to the BUE, ROM, sensation and radial pulses intact Neuro: Awake, alert and oriented x 3, interacting and answering questions appropriately Differential diagnosis includes skull fracture, intracranial hemorrhage, cervical spine injury, intrathoracic injury, hematoma, musculoskeletal among others were considered EMERGENCY DEPARTMENT COURSE: Physical exam and history were performed. Nursing triage notes, EMR, and medication list were personally reviewed. Patient is an 85 year old female with history of a-fib on Eliquis, pacer in situ, CHF, CKD4, GI bleed, colostomy, OA among others listed below who presents to the Emergency Department via EMS for evaluation after suffering a fall 6 days prior to arrival with complaints of bilateral leg pain, especially over the left holland. On exam she did have large areas of ecchymosis and edema to the anterior, medial, and lateral left holland with tenderness to palpation. Also with tenderness to palpation over the bilateral thighs, knees and right holland. Range of motion of the BLE intact but limited secondary to pain. Sensation and d/p pulses intact bilaterally. No other significant findings on exam. The patient was offered pain medication and was given Tylenol 1000 mg. EKG was performed and did show an atrial paced rhythm competing with a sinus rhythm with first-degree AV block and PACs. Left axis deviation. Right bundle branch block. When compared to study from 11/19/2020, sinus rhythm has replaced pacing. The patient's pacemaker was interrogated and did not show any acute problems. Labs were obtained and reviewed by myself as below. Of note, no leukocytosis with a WBC of 8.18. No concern for anemia with hemoglobin 12.2. Coagulation studies WNL. Very mild hyponatremia at 135 and hypochloremia at 97, potassium WNL. Elevation in creatinine at 1.53 and BUN at 44 consistent with history of CKD 4. LFTs nondiagnostic. Troponin not elevated at 0.03. UA was obtained and was likely contaminated with >30 epithelial cells, no concern for acute infection. CT head and C-spine were obtained and reviewed by radiologist and myself as below. Images were negative for acute fractures, subluxation or intracranial abnormality. X-rays were also obtained of the chest, pelvis, bilateral femurs, knees and tib/fibs. Images were reviewed by radiologist and myself as below, negative for acute bony abnormalities. Upon reevaluation, the patient was more resting comfortably in bed. I discussed the results of the above findings with her as well as my attending, Dr. Sumner, who was involved throughout the patient's course of care. The patient states that she lives alone and does not have anybody to help care for her. She states that she has suffered frequent falls. I am worried that if she does suffer a fall, she is going to sustain additional injury. I am also concerned that if she bumps the hematoma on her left holland it will open up and she will not be able to control the bleeding by herself at home. This wound should also be monitored very closely as there are also risks of developing a possible infection here as well. For these reasons, I do not feel that the patient is safe to return home by herself without additional assistance. I did contact Dr. River who agreed to evaluate the patient for further management and disposition. The patient verbalized understanding and agreement with this treatment plan. The chart was completed utilizing [employer] Speech Voice Recognition Software. Grammatical errors, random word insertions, pronoun errors, and incomplete sentences are an occasional consequence of this system due to software limitations, ambient noise, and hardware issues. Any formal questions or concerns about the content, text, or information contained within the body of this dictation should be directly addressed to the provider for clarification. 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) Dizziness DJD (degenerative joint disease) Fall GI bleed Gouty arthritis Hemarthrosis Hip hematoma, left Left knee DJD Osteoarthritis Pacemaker Right rib fracture Systolic CHF, chronic Weakness Surgical History H/O: hysterectomy (03/28/12) Social History Smoking Status: Never smoker Hx Alcohol Use: No Hx Substance Use: No Preferred Language: Marshallese Communication Ability: Effective Conference Planning Manager Required: No Beliefs That Will Affect Care: None marital status: / Current Living Situation: Alone Feels Safe at Home: Yes Assistive Devices: Walker Allergies Allergies Allergy/AdvReac Type Severity Reaction Status Date / Time Iodinated Contrast Media Allergy Severe Difficulty Verified 05/16/21 14:33 Breathing, Severe Hives Sulfa (Sulfonamide Allergy Mild . Verified 05/16/21 14:33 Antibiotics) cephalexin Allergy Unknown Unknown Verified 05/16/21 14:33 diphenhydramine Allergy Unknown DOES NOT Verified 05/16/21 14:33 REMEMBER potassium chloride Allergy Unknown unknown Verified 05/16/21 14:33 mushroom Allergy Unknown Verified 05/16/21 14:33 Home Meds Home Medications Medication Instructions Recorded Confirmed allopurinol 100 mg tablet 100 mg PO QAM 06/20/19 05/16/21 multivit with 1 tab PO QAM 06/20/19 05/16/21 [id number]-lutein 8 mg iron-400 mcg-300 mcg tablet (Centrum Silver Women) nitroglycerin 0.4 mg sublingual 0.4 mg SUBLINGUAL DIRECTED PRN 06/20/19 05/16/21 tablet (Nitrostat) omeprazole 20 mg capsule,delayed 20 mg PO QAM 06/20/19 05/16/21 release vit C 250 mg-vit E 90 mg-zinc 40 1 tab PO BID 06/20/19 05/16/21 mg-copper 1 [id number]-[id number] capsule (PreserVision AREDS-2) apixaban 2.5 mg tablet (Eliquis) 2.5 mg PO BID 10/06/19 05/16/21 furosemide 20 mg tablet 20 mg PO Q OTHER DAY 10/06/19 05/16/21 metoprolol succinate 100 mg 100 mg PO BID 10/06/19 05/16/21 tablet,extended release 24 hr sertraline 25 mg tablet 25 mg PO HS 10/06/19 05/16/21 Previous Rx's Medication Instructions Recorded lorazepam 0.5 mg tablet 0.5 mg PO HS 3 Days #3 tab 10/10/19 Results & Data (ED) Vital Signs Vital Signs - 24 hr 05/16/21 11:55 05/16/21 14:19 05/16/21 16:00 Temperature 36.8 C Temperature Source Oral Pulse Rate 73 Pulse Rate [Apical] 60 61 Pulse Rhythm Regular Pulse Rhythm [Apical] Regular Regular Pulse Strength Normal Pulse Strength [Apical] Normal Respiratory Rate 20 18 16 Respiratory Effort / Characteristics Non-Labored Non-Labored Non-Labored Respiratory Depth Normal Normal Normal Respiratory Pattern Regular Blood Pressure 197/77 H Blood Pressure [Left Arm] 184/99 H 192/87 H Blood Pressure Mean 117 Blood Pressure Mean [Left Arm] 127 122 Blood Pressure Position Lying Blood Pressure Position [Left Arm] Lying Lying Pulse Oximetry 100 98 98 Oxygen Delivery Method Room Air Room Air Room Air Sepsis Recent Fever Within 48 Hours No Sepsis New/Unexplained Change in Mental Status No Sepsis Action Taken by Nursing No Action Required Laboratory Data Result diagrams: 05/16/21 11:56 05/16/21 11:56 Lab Results 05/16/21 05/16/21 05/16/21 Range/Units 11:56 11:56 11:56 WBC 8.18 (4.8-10.8) K/uL RBC 3.88 L (4.2-5.4) M/uL Hgb 12.2 (12.0-16.0) g/dL Hct 36.9 L (37-47) % MCV 95.1 (80-100) fL MCH 31.4 (25-34) pg MCHC 33.1 (32-36) g/dL RDW Std Deviation 49.8 H (36.4-46.3) fL RDW Coeff of Thee 14.5 (11.5-14.5) % Plt Count 217 (130-400) K/uL MPV 10.1 (7.4-10.4) fL Immature Gran % (Auto) 0.5 % Neut % (Auto) 75.9 % Lymph % (Auto) 8.4 % [place] % (Auto) 14.1 % Eos % (Auto) 0.9 % Baso % (Auto) 0.2 % Neut # (Auto) 6.21 (1.4-6.5) K/uL Lymph # (Auto) 0.69 L (1.2-3.4) K/uL [place] # (Auto) 1.15 H (0.11-0.59) K/uL Eos # (Auto) 0.07 (0-0.5) K/uL Baso # (Auto) 0.02 (0-0.2) K/uL Immature Gran # (Auto) 0.04 H (0.00-0.02) K/uL PT 10.4 (9.0-12.0) Seconds INR 1.0 (0.9-1.1) APTT 30.3 (21.0-31.0) Seconds PTT Ratio 1.2 Sodium 135 L (136-145) mmol/L Potassium 4.1 (3.5-5.1) mmol/L Chloride 97 L (98-107) mmol/L Carbon Dioxide 32 (21-32) mmol/L Anion Gap 6 (3-11) BUN 44 H (6-23) mg/dl Creatinine 1.53 H (0.6-1.2) mg/dl Est Cr Clr Drug Dosing 23.9 ml/min Est GFR ( Amer) 35.1 ml/min Est GFR (Non-Af Amer) 30.3 ml/min BUN/Creatinine Ratio 28.8 H (10-20) Glucose 196 H (70-99(Fasting)) mg/dl Calcium 9.7 (8.5-10.1) mg/dl Total Bilirubin 1.0 (0.2-1.0) mg/dl AST 19 (13-39) U/L ALT 9 (7-52) U/L Alkaline Phosphatase 100 (34-104) U/L Troponin I 0.03 (0-0.04) ng/ml Total Protein 8.1 (6.0-8.3) gm/dl Albumin 4.1 (3.4-5.0) gm/dl Globulin 4.0 (2.5-4.0) gm/dl Albumin/Globulin Ratio 1.0 (0.9-2) Urine Color Urine Appearance (Clear) Urine pH (4.5-7.5) Ur Specific [place] (1.000-1.030) Urine Protein (Negative) Urine Glucose (UA) (Negative) Urine Ketones (Negative) Urine Blood (Negative) Urine Nitrite (Negative) Urine Bilirubin (Negative) Urine Urobilinogen (Negative) Ur Leukocyte Esterase (Negative) Urine WBC (Auto) (0-5) /hpf Urine RBC (Auto) (0-4) /hpf U Hyaline Cast (Auto) (0-5) /lpf U Epithel Cells (Auto) (0-5) /lpf Urine Bacteria (Auto) (Negative) Waxy Casts (0) /lpf Urine Yeast SARS-CoV-2, RNA, NAAT (NEGATIVE) 05/16/21 05/16/21 Range/Units 12:38 16:15 WBC (4.8-10.8) K/uL RBC (4.2-5.4) M/uL Hgb (12.0-16.0) g/dL Hct (37-47) % MCV (80-100) fL MCH (25-34) pg MCHC (32-36) g/dL RDW Std Deviation (36.4-46.3) fL RDW Coeff of Thee (11.5-14.5) % Plt Count (130-400) K/uL MPV (7.4-10.4) fL Immature Gran % (Auto) % Neut % (Auto) % Lymph % (Auto) % [place] % (Auto) % Eos % (Auto) % Baso % (Auto) % Neut # (Auto) (1.4-6.5) K/uL Lymph # (Auto) (1.2-3.4) K/uL [place] # (Auto) (0.11-0.59) K/uL Eos # (Auto) (0-0.5) K/uL Baso # (Auto) (0-0.2) K/uL Immature Gran # (Auto) (0.00-0.02) K/uL PT (9.0-12.0) Seconds INR (0.9-1.1) APTT (21.0-31.0) Seconds PTT Ratio Sodium (136-145) mmol/L Potassium (3.5-5.1) mmol/L Chloride (98-107) mmol/L Carbon Dioxide (21-32) mmol/L Anion Gap (3-11) BUN (6-23) mg/dl Creatinine (0.6-1.2) mg/dl Est Cr Clr Drug Dosing ml/min Est GFR ( Amer) ml/min Est GFR (Non-Af Amer) ml/min BUN/Creatinine Ratio (10-20) Glucose (70-99(Fasting)) mg/dl Calcium (8.5-10.1) mg/dl Total Bilirubin (0.2-1.0) mg/dl AST (13-39) U/L ALT (7-52) U/L Alkaline Phosphatase (34-104) U/L Troponin I (0-0.04) ng/ml Total Protein (6.0-8.3) gm/dl Albumin (3.4-5.0) gm/dl Globulin (2.5-4.0) gm/dl Albumin/Globulin Ratio (0.9-2) Urine Color Yellow Urine Appearance Clear (Clear) Urine pH 7.0 (4.5-7.5) Ur Specific [place] 1.013 (1.000-1.030) Urine Protein Trace H (Negative) Urine Glucose (UA) Negative (Negative) Urine Ketones Negative (Negative) Urine Blood Negative (Negative) Urine Nitrite Negative (Negative) Urine Bilirubin Negative (Negative) Urine Urobilinogen Negative (Negative) Ur Leukocyte Esterase Trace H (Negative) Urine WBC (Auto) 5-10 H (0-5) /hpf Urine RBC (Auto) 0-4 (0-4) /hpf U Hyaline Cast (Auto) 1-5 (0-5) /lpf U Epithel Cells (Auto) >30 H (0-5) /lpf Urine Bacteria (Auto) Negative (Negative) Waxy Casts 5-10 H (0) /lpf Urine Yeast Not Reportable SARS-CoV-2, RNA, NAAT NEGATIVE (NEGATIVE) Administered Medications Discontinued Medications Acetaminophen (Acetaminophen 500 Mg Tab) 1,000 mg PO NOW STA Stop: 05/16/21 11:37 Last Admin: 05/16/21 12:24 Dose: 1,000 mg Documented by: [id number] Imaging Data Radiologist's Impression: Cervical Spine CT 05/16/21 11:36 CT OF THE CERVICAL SPINE WITHOUT CONTRAST CLINICAL HISTORY: Fall on eliquis. COMPARISON STUDY: Cervical spine CT November 19, 2020. TECHNIQUE: Helical axial images of the cervical spine were obtained without IV contrast. Sagittal and coronal reconstructions were viewed. Automated exposure control was utilized for the study. A dose lowering technique was utilized adhering to the principles of ALARA. FINDINGS: Reversal of the normal cervical lordosis is unchanged. Craniocervical junction is intact. Degenerative changes at the C1-C2 articulation are noted. There is severe multilevel facet arthrosis and moderate to severe multilevel degenerative disc disease. No acute cervical spine fracture is identified. The appearance of the cervical spine is similar to prior exam. IMPRESSION: No acute cervical spine fracture or subluxation. ACT 112: Negative or not required by law. Electronically signed by: Mike Zuniga M.D. 05/16/2021 1:26 PM Chest X-Ray 05/16/21 11:36 XR chest 1V not portable HISTORY: 85 years-old Female Fall acute chest trauma status post fall COMPARISON: Chest radiograph 11/19/2020, CT abdomen and pelvis 02/08/2019 TECHNIQUE: Portable upright AP view of the chest FINDINGS: Cardiac silhouette is enlarged. Left subclavian pacer. Atherosclerotic plaque of the thoracic aorta. Chronic blunting of the costophrenic angles with chronic interstitial coarsening. No pneumothorax, large pleural effusion or overt pulmonary edema. Degenerative changes of the shoulders and spine. 5.6 cm round retrocardiac opacity correlates with the previously seen Bochdalek hernia. IMPRESSION: 1. Cardiomegaly without acute process. 2. Left Bochdalek hernia. ACT 112: Negative or not required by law. The above report was generated using voice recognition software. It may contain grammatical, syntax or spelling errors. Electronically signed by: Doc Gordon M.D. 05/16/2021 2:05 PM Femur X-Ray 05/16/21 11:36 XR femur RT 2V routine, XR tibia fibula RT 2V, XR pelvis 1-2V routine, XR femur LT 2V routine, XR knee LT 3V, XR tibia fibula LT 2V CLINICAL HISTORY: Fall, pain TECHNIQUE: 2 radiographic views of the bilateral femurs were obtained. Single frontal view of the pelvis was obtained. Radiographs of the bilateral knees and tibia/fibulas were obtained. Comparison: None available at the time of this dictation. FINDINGS: Severe degenerative changes are seen in the bilateral knees most prominent in the patellofemoral and lateral compartments. Degenerative changes are also seen in the bilateral ankles. There is irregularity in the distal right fibula. There is normal anatomic alignment of the bones. The visualized portion of the hip and knee joints are unremarkable. There is normal bone mineralization. Vascular calcifications are noted. Bilateral soft tissue swelling is seen most prominent in the ankles. IMPRESSION: No evidence of acute fracture in the pelvis, bilateral femurs, bilateral knees, and bilateral lower legs. Soft tissue swelling is seen most prominently about the bilateral ankles. If there is concern for ankle fracture, dedicated radiographs of the ankle are recommended. Severe degenerative changes are seen in the knees and ankles. ACT 112: Negative or not required by law. Electronically signed by: Alessandro Castro M.D. 05/16/2021 2:08 PM Femur X-Ray 05/16/21 11:36 XR femur RT 2V routine, XR tibia fibula RT 2V, XR pelvis 1-2V routine, XR femur LT 2V routine, XR knee LT 3V, XR tibia fibula LT 2V CLINICAL HISTORY: Fall, pain TECHNIQUE: 2 radiographic views of the bilateral femurs were obtained. Single frontal view of the pelvis was obtained. Radiographs of the bilateral knees and tibia/fibulas were obtained. Comparison: None available at the time of this dictation. FINDINGS: Severe degenerative changes are seen in the bilateral knees most prominent in the patellofemoral and lateral compartments. Degenerative changes are also seen in the bilateral ankles. There is irregularity in the distal right fibula. There is normal anatomic alignment of the bones. The visualized portion of the hip and knee joints are unremarkable. There is normal bone mineralization. Vascular calcifications are noted. Bilateral soft tissue swelling is seen most prominent in the ankles. IMPRESSION: No evidence of acute fracture in the pelvis, bilateral femurs, bilateral knees, and bilateral lower legs. Soft tissue swelling is seen most prominently about the bilateral ankles. If there is concern for ankle fracture, dedicated ra diographs of the ankle are recommended. Severe degenerative changes are seen in the knees and ankles. ACT 112: Negative or not required by law. Electronically signed by: Alessandro Castro M.D. 05/16/2021 2:[address] 05/16/21 11:36 CT OF THE HEAD WITHOUT CONTRAST CLINICAL HISTORY: Fall on Eliquis. COMPARISON STUDY: Head CT November 19, 2020. TECHNIQUE: Helical axial images of the head were obtained without IV contrast. Automated exposure control was utilized for the study. A dose lowering technique was utilized adhering to the principles of ALARA. FINDINGS: No acute intracranial hemorrhage, midline shift or mass effect is present. White matter hypodensities are unchanged and suggest small vessel disease. The ventricular system is unremarkable. The basal cisterns are patent. No extra-axial collections are present. There are no findings to suggest acute dural sinus thrombosis or acute territorial infarct. No significant calvarial abnormalities are present. Visualized portions of the sinuses and mastoid air cells are clear. IMPRESSION: 1. No acute intracranial findings. No change in appearance of the brain. 2. No calvarial fracture. ACT 112: Negative or not required by law. Electronically signed by: Mike Zuniga M.D. 05/16/2021 1:18 PM Knee X-Ray 05/16/21 11:36 XR femur RT 2V routine, XR tibia fibula RT 2V, XR pelvis 1-2V routine, XR femur LT 2V routine, XR knee LT 3V, XR tibia fibula LT 2V CLINICAL HISTORY: Fall, pain TECHNIQUE: 2 radiographic views of the bilateral femurs were obtained. Single f rontal view of the pelvis was obtained. Radiographs of the bilateral knees and tibia/fibulas were obtained. Comparison: None available at the time of this dictation. FINDINGS: Severe degenerative changes are seen in the bilateral knees most prominent in the patellofemoral and lateral compartments. Degenerative changes are also seen in the bilateral ankles. There is irregularity in the distal right fibula. There is normal anatomic alignment of the bones. The visualized portion of the hip and knee joints are unremarkable. There is normal bone mineralization. Vascular calcifications are noted. Bilateral soft tissue swelling is seen most prominent in the ankles. IMPRESSION: No evidence of acute fracture in the pelvis, bilateral femurs, bilateral knees, and bilateral lower legs. Soft tissue swelling is seen most prominently about the bilateral ankles. If there is concern for ankle fracture, dedicated radiographs of the ankle are recommended. Severe degenerative changes are seen in the knees and ankles. ACT 112: Negative or not required by law. Electronically signed by: Alessandro Castro M.D. 05/16/2021 2:08 PM Knee X-Ray 05/16/21 11:36 XR knee RT 3V HISTORY: 85 years-old Female Fall, pain acute right knee pain status post fall COMPARISON: Right tibia and fibula radiographs of same day TECHNIQUE: [place] views of the bilateral knees with crosstable lateral and AP views of the right knee FINDINGS: Demineralized appearance of the bones. No acute fracture or dislocation identified. Tricompartmental osteoarthritis of the knee is severe within the patellofemoral joint, moderate within the lateral compartment and mild within the medial compartment. Vascular calcifications are noted. IMPRESSION: No acute fracture identified. ACT 112: Negative or not required by law. The above report was generated using voice recognition software. It may contain grammatical, syntax or spelling errors. Electronically signed by: Doc Gordon M.D. 05/16/2021 2:02 PM Pelvis X-Ray 05/16/21 11:36 XR femur RT 2V routine, XR tibia fibula RT 2V, XR pelvis 1-2V routine, XR femur LT 2V routine, XR knee LT 3V, XR tibia fibula LT 2V CLINICAL HISTORY: Fall, pain TECHNIQUE: 2 radiographic views of the bilateral femurs were obtained. Single frontal view of the pelvis was obtained. Radiographs of the bilateral knees and tibia/fibulas were obtained. Comparison: None available at the time of this dictation. FINDINGS: Severe degenerative changes are seen in the bilateral knees most prominent in the patellofemoral and lateral compartments. Degenerative changes are also seen in the bilateral ankles. There is irregularity in the distal right fibula. There is normal anatomic alignment of the bones. The visualized portion of the hip and knee joints are unremarkable. There is normal bone mineralization. Vascular calcifications are noted. Bilateral soft tissue swelling is seen most prominent in the ankles. IMPRESSION: No evidence of acute fracture in the pelvis, bilateral femurs, bilateral knees, and bilateral lower legs. Soft tissue swelling is seen most prominently about the bilateral ankles. If there is concern for ankle fracture, dedicated radiographs of the ankle are recommended. Severe degenerative changes are seen in the knees and ankles. ACT 112: Negative or not required by law. Electronically signed by: Alessandro Castro M.D. 05/16/2021 2:08 PM Tibia/Fibula X-Ray 05/16/21 11:36 XR femur RT 2V routine, XR tibia fibula RT 2V, XR pelvis 1-2V routine, XR femur LT 2V routine, XR knee LT 3V, XR tibia fibula LT 2V CLINICAL HISTORY: Fall, pain TECHNIQUE: 2 radiographic views of the bilateral femurs were obtained. Single frontal view of the pelvis was obtained. Radiographs of the bilateral knees and tibia/fibulas were obtained. Comparison: None available at the time of this dictation. FINDINGS: Severe degenerative changes are seen in the bilateral knees most prominent in the patellofemoral and lateral compartments. Degenerative changes are also seen in the bilateral ankles. There is irregularity in the distal right fibula. There is normal anatomic alignment of the bones. The visualized portion of the hip and knee joints are unremarkable. There is normal bone mineralization. Vascular calcifications are noted. Bilateral soft tissue swelling is seen most prominent in the ankles. IMPRESSION: No evidence of acute fracture in the pelvis, bilateral femurs, bilateral knees, and bilateral lower legs. Soft tissue swelling is seen most prominently about the bilateral ankles. If there is concern for ankle fracture, dedicated radiographs of the ankle are recommended. Severe degenerative changes are seen in the knees and ankles. ACT 112: Negative or not required by law. Electronically signed by: Alessandro Castro M.D. 05/16/2021 2:08 PM Tibia/Fibula X-Ray 05/16/21 11:36 XR femur RT 2V routine, XR tibia fibula RT 2V, XR pelvis 1-2V routine, XR femur LT 2V routine, XR knee LT 3V, XR tibia fibula LT 2V CLINICAL HISTORY: Fall, pain TECHNIQUE: 2 radiographic views of the bilateral femurs were obtained. Single frontal view of the pelvis was obtained. Radiographs of the bilateral knees and tibia/fibulas were obtained. Comparison: None available at the time of this dictation. FINDINGS: Severe degenerative changes are seen in the bilateral knees most prominent in the patellofemoral and lateral compartments. Degenerative changes are also seen in the bilateral ankles. There is irregularity in the distal right fibula. There is normal anatomic alignment of the bones. The visualized portion of the hip and knee joints are unremarkable. There is normal bone mineralization. Vascular calcifications are noted. Bilateral soft tissue swelling is seen most prominent in the ankles. IMPRESSION: No evidence of acute fracture in the pelvis, bilateral femurs, bilateral knees, and bilateral lower legs. Soft tissue swelling is seen most prominently about the bilateral ankles. If there is concern for ankle fracture, dedicated radiographs of the ankle are recommended. Severe degenerative changes are seen in the knees and ankles. ACT 112: Negative or not required by law. Electronically signed by: Alessandro Castro M.D. 05/16/2021 2:08 PM Discharge Plan Visit Data Chief Complaint: Leg Injury/Pain ED Provider: Cesar Sumner ED Midlevel Provider: Kirstie Mann Discharge Problem: Hematoma of left lower extremity, Frequent falls Patient Disposition: Admitted As Inpatient Discharge Instructions Interventions: ED Discharge Assessment Last Done: 05/16/21 17:40
[2021-05-16 12:05] LABS: Basophils # (auto) 0.02 K/uL (0-0.2); Basophils % (auto) 0.2 %; Eosinophils # (auto) 0.07 K/uL (0-0.5); Eosinophils % (auto) 0.9 %; Hematocrit (blood only) 36.9 % (37-47); Hemoglobin 12.2 g/dL (12.0-16.0); Immature Granulocytes # (auto) 0.04 K/uL (0.00-0.02); Immature Granulocytes % (auto) 0.5 %; Lymphocytes # (auto) 0.69 K/uL (1.2-3.4); Lymphocytes % (auto) 8.4 %; Mean Corpuscular Hemoglobin 31.4 pg (25-34); Mean Corpuscular Hgb Conc 33.1 g/dL (32-36); Mean Corpuscular Volume 95.1 fL (80-100); Mean Platelet Volume 10.1 fL (7.4-10.4); Monocytes # (auto) 1.15 K/uL (0.11-0.59); Monocytes % (auto) 14.1 %; Neutrophils # (auto) 6.21 K/uL (1.4-6.5); Neutrophils % (auto) 75.9 %; Platelet Count 217 K/uL (130-400); RDW Coefficient of Variation 14.5 % (11.5-14.5); RDW Standard Deviation 49.8 fL (36.4-46.3); Red Blood Count 3.88 M/uL (4.2-5.4); White Blood Count 8.18 K/uL (4.8-10.8)
[2021-05-16 12:16] LABS: Partial Thromboplastin Ratio 1.2; Partial Thromboplastin Time 30.3 Seconds (21.0-31.0); Prothrombin Time 10.4 Seconds (9.0-12.0)
[2021-05-16 12:28] LABS: Albumin Level 4.1 gm/dl (3.4-5.0); BUN Creatinine Ratio 28.8 (10-20); Calcium 9.7 mg/dl (8.5-10.1); Creatinine Clr Calc Pharmacy 23.9 ml/min; Est GFR (African American) 35.1 ml/min; Est GFR (Non-African American) 30.3 ml/min; Potassium 4.1 mmol/L (3.5-5.1); Total Protein 8.1 gm/dl (6.0-8.3); Troponin I 0.03 ng/ml (0-0.04)
--- NOTE | 2021-05-16 13:19 | CT Scan Report ---
CT OF THE HEAD WITHOUT CONTRAST CLINICAL HISTORY: Fall on Eliquis. COMPARISON STUDY: Head CT November 19, 2020. TECHNIQUE: Helical axial images of the head were obtained without IV contrast. Automated exposure con trol was utilized for the study. A dose lowering technique was utilized adhering to the principles o f ALARA. FINDINGS: No acute intracranial hemorrhage, midline shift or mass effect is present. White matter hyp odensities are unchanged and suggest small vessel disease. The ventricular system is unremarkable. Th e basal cisterns are patent. No extra-axial collections are present. There are no findings to suggest acute dural sinus thrombosis or acute territorial infarct. No significant calvarial abnormalities ar e present. Visualized portions of the sinuses and mastoid air cells are clear. IMPRESSION: 1. No acute intracranial findings. No change in appearance of the brain. 2. No calvarial fracture. ACT 112: Negative or not required by law. Electronically signed by: Mike Zuniga M.D. 05/16/2021 1:18 PM
--- NOTE | 2021-05-16 13:27 | CT Scan Report ---
CT OF THE CERVICAL SPINE WITHOUT CONTRAST CLINICAL HISTORY: Fall on eliquis. COMPARISON STUDY: Cervical spine CT November 19, 2020. TECHNIQUE: Helical axial images of the cervical spine were obtained without IV contrast. Sagittal a nd coronal reconstructions were viewed. Automated exposure control was utilized for the study. A do se lowering technique was utilized adhering to the principles of ALARA. FINDINGS: Reversal of the normal cervical lordosis is unchanged. Craniocervical junction is intact. D egenerative changes at the C1-C2 articulation are noted. There is severe multilevel facet arthrosis a nd moderate to severe multilevel degenerative disc disease. No acute cervical spine fracture is ident ified. The appearance of the cervical spine is similar to prior exam. IMPRESSION: No acute cervical spine fracture or subluxation. ACT 112: Negative or not required by law. Electronically signed by: Mike Zuniga M.D. 05/16/2021 1:26 PM
--- NOTE | 2021-05-16 14:03 | XRay Report ---
XR knee RT 3V HISTORY: 85 years-old Female Fall, pain acute right knee pain status post fall COMPARISON: Right tibia and fibula radiographs of same day TECHNIQUE: [place] views of the bilateral knees with crosstable lateral and AP views of the right kne e FINDINGS: Demineralized appearance of the bones. No acute fracture or dislocation identified. Tricompartmental osteoarthritis of the knee is severe within the patellofemoral joint, moderate within the lateral com partment and mild within the medial compartment. Vascular calcifications are noted. IMPRESSION: No acute fracture identified. ACT 112: Negative or not required by law. The above report was generated using voice recognition software. It may contain grammatical, syntax o r spelling errors. Electronically signed by: Doc Gordon M.D. 05/16/2021 2:02 PM
--- NOTE | 2021-05-16 14:07 | XRay Report ---
XR chest 1V not portable HISTORY: 85 years-old Female Fall acute chest trauma status post fall COMPARISON: Chest radiograph 11/19/2020, CT abdomen and pelvis 02/08/2019 TECHNIQUE: Portable upright AP view of the chest FINDINGS: Cardiac silhouette is enlarged. Left subclavian pacer. Atherosclerotic plaque of the thoracic aorta. Chronic blunting of the costophrenic angles with chronic interstitial coarsening. No pneumothorax, la rge pleural effusion or overt pulmonary edema. Degenerative changes of the shoulders and spine. 5.6 c m round retrocardiac opacity correlates with the previously seen Bochdalek hernia. IMPRESSION: 1. Cardiomegaly without acute process. 2. Left Bochdalek hernia. ACT 112: Negative or not required by law. The above report was generated using voice recognition software. It may contain grammatical, syntax o r spelling errors. Electronically signed by: Doc Gordon M.D. 05/16/2021 2:05 PM
--- NOTE | 2021-05-16 14:10 | XRay Report ---
XR femur RT 2V routine, XR tibia fibula RT 2V, XR pelvis 1-2V routine, XR femur LT 2V routine, XR kne e LT 3V, XR tibia fibula LT 2V CLINICAL HISTORY: Fall, pain TECHNIQUE: 2 radiographic views of the bilateral femurs were obtained. Single frontal view of the pel vis was obtained. Radiographs of the bilateral knees and tibia/fibulas were obtained. Comparison: None available at the time of this dictation. FINDINGS: Severe degenerative changes are seen in the bilateral knees most prominent in the patellofemoral and lateral compartments. Degenerative changes are also seen in the bilateral ankles. There is irregulari ty in the distal right fibula. There is normal anatomic alignment of the bones. The visualized portio n of the hip and knee joints are unremarkable. There is normal bone mineralization. Vascular calcific ations are noted. Bilateral soft tissue swelling is seen most prominent in the ankles. IMPRESSION: No evidence of acute fracture in the pelvis, bilateral femurs, bilateral knees, and bilateral lower l egs. Soft tissue swelling is seen most prominently about the bilateral ankles. If there is concern fo r ankle fracture, dedicated radiographs of the ankle are recommended. Severe degenerative changes are seen in the knees and ankles. ACT 112: Negative or not required by law. Electronically signed by: Alessandro Castro M.D. 05/16/2021 2:08 PM
--- NOTE | 2021-05-16 14:10 | Electrocardiogram Report ---
Test Reason : Blood Pressure : / mmHG Vent. Rate : 066 BPM Atrial Rate : 066 BPM P-R Int : 260 ms QRS Dur : 154 ms QT Int : 450 ms P-R-T Axes : 095 -61 021 degrees QTc Int : 471 ms Atrial paced rhythm competing with Sinus rhythm with 1st degree A-V block with Premature atrial complexes Left axis deviation Right bundle branch block Abnormal ECG When compared with ECG of 19-NOV-2020 15:26, Sinus rhythm has replaced Electronic ventricular pacemaker Confirmed by Gelacio Duke ([id number]) on 05/16/2021 2:09:43 PM Referred By: Confirmed By:John Duke
[2021-05-16 14:33] LABS: Appearance Urine Clear (Clear); Bacteria Urine Automated Negative (Negative); Bilirubin Urine Negative (Negative); Blood Urine Negative (Negative); Color Urine Yellow; Epithelial Cell Urine Auto >30 /lpf (0-5); Glucose Urine UA Negative (Negative); Ketones Urine Negative (Negative); Leukocyte Esterase Urine Trace (Negative); Nitrite Urine Negative (Negative); Protein Urine Trace (Negative); RBC Urine Automated 0-4 /hpf (0-4); Specific Gravity Urine 1.013 (1.000-1.030); Urobilinogen Urine Negative (Negative)
[2021-05-16] MEDS ORDERED: NITROGLYCERIN SL 0.4 MG/TAB TAB SL PRN (16:50)
[2021-05-16] MEDS ORDERED: NON-FORMULARY MEDICATION (Vit C,E-Zn-Coppr-Lutein-Zeaxan [Preservision Areds-2] 250-200-40 PO SCH (21:00)
[2021-05-16] MEDS: LORazepam 0.5 MG TAB PO SCH (21:47)
[2021-05-16] MEDS: ACETAMINOPHEN 325 MG TAB PO PRN (21:47)
[2021-05-16] MEDS: SERTRALINE HCL 50 MG TABLET PO SCH (21:48)
[2021-05-16] MEDS: APIXABAN 2.5 MG TAB PO SCH (21:48)
[2021-05-16] MEDS: METOPROLOL SUCC 50MG EXT REL TAB PO SCH (21:51)
--- NOTE | 2021-05-16 23:57 | History & Physical Report ---
Date of Service May 16, 2021 Assessment & Plan (1) Hematoma of left lower extremity: Plan: No fracture on x ray will check CK in AM. will monitor overnight. for now will continue Eliquis for stroke prevention as patient has elevated CHADVASC 2 score. will obtain PT E and OT E consults. may consider ortho consult in AM. (2) Fall: Plan: -PT/OT consults -Uses a walker at baseline, fall precautions, as above (3) Chronic kidney disease, stage IV (severe): Plan: - appears her baseline is 1.6-1.9 - Checking BMP (4) Atrial fibrillation: Plan: -Permanent, rate controlled on admission -Continue rate controlling agents including digoxin and metoprolol as above -Anticoagulated on Eliquis Admission and Anticipated Discharge Date Admission Date: May 16, 2021 History of Present Illness Chief Complaint: fall Primary Care Provider: Patti James MD 85 yo female presents after sustaining a fall where her left leg hit a step of he rstaircase. This occured last Wednesday. Since then her leg has been painful and has been brusing. Allergies Allergy/AdvReac Type Severity Reaction Status Date / Time Iodinated Contrast Media Allergy Severe Difficulty Verified 05/16/21 14:33 Breathing, Severe Hives Sulfa (Sulfonamide Allergy Mild . Verified 05/16/21 14:33 Antibiotics) cephalexin Allergy Unknown Unknown Verified 05/16/21 14:33 diphenhydramine Allergy Unknown DOES NOT Verified 05/16/21 14:33 REMEMBER potassium chloride Allergy Unknown unknown Verified 05/16/21 14:33 mushroom Allergy Unknown Verified 05/16/21 14:33 Home Medications Medication Instructions Recorded Confirmed Type allopurinol 100 mg tablet 100 mg PO QAM 06/20/19 05/16/21 History multivit with 1 tab PO QAM 06/20/19 05/16/21 History vwgubfef-buhq-DE-lutein 8 mg iron-400 mcg-300 mcg tablet (Centrum Silver Women) nitroglycerin 0.4 mg sublingual 0.4 mg SUBLINGUAL DIRECTED PRN 06/20/19 05/16/21 History tablet (Nitrostat) omeprazole 20 mg capsule,delayed 20 mg PO QAM 06/20/19 05/16/21 History release vit C 250 mg-vit E 90 mg-zinc 40 1 tab PO BID 06/20/19 05/16/21 History mg-copper 1 pp-uqbfxe-mwaujy capsule (PreserVision AREDS-2) apixaban 2.5 mg tablet (Eliquis) 2.5 mg PO BID 10/06/19 05/16/21 History furosemide 20 mg tablet 20 mg PO Q OTHER DAY 10/06/19 05/16/21 History metoprolol succinate 100 mg 100 mg PO BID 10/06/19 05/16/21 History tablet,extended release 24 hr sertraline 25 mg tablet 25 mg PO HS 10/06/19 05/16/21 History lorazepam 0.5 mg tablet 0.5 mg PO HS 3 Days #3 tab 10/10/19 05/16/21 Rx 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) Dizziness DJD (degenerative joint disease) Fall GI bleed Gouty arthritis Hemarthrosis Hip hematoma, left Left knee DJD Osteoarthritis Pacemaker Right rib fracture Systolic CHF, chronic Weakness Surgical History H/O: hysterectomy (03/28/12) Social History Smoking Status: Never smoker Hx Alcohol Use: No Hx Substance Use: No Preferred Language: Yoruba Communication Ability: Effective Lens Inserter Required: No Beliefs That Will Affect Care: None marital status: / Current Living Situation: Alone Other Information That Helps Us Care for You: No Feels Safe at Home: Yes Safety Concerns: Feels Safe At This Time Assistive Devices: Glasses and Walker Review of Systems Review of Systems: All systems reviewed & are unremarkable except as noted in HPI & below Physical Exam Physical Exam: General: awake, alert Head: Normocephalic, atraumatic ENT: PERRL, EOMI, no pharyngeal exudate, mucous membranes moist Chest: Clear to auscultation, on room air, no adventitious breath sounds Cardiac: Irregularly irregular, + JAMAAL, no JVD, normal peripheral pulses, good capillary refill Abdominal: NABS x 4 quadrants, soft, nondistended, + colostomy LLQ, nontender to palpation, no rebound, guarding or tenderness Extremities: large ecchymosis noted on anterior left lower leg Psych: normal affect Neuro: AAO x 3, Results & Data Results & Data ([facility]) Vital Signs (Past 12 Hours) Vital Signs Temp Pulse Pulse Resp BP BP BP 05/16/21 22:16 36.3 C L 17 164/72 H 05/16/21 19:40 36.8 C 60 16 170/75 H 05/16/21 18:24 60 18 185/63 H 05/16/21 17:38 60 16 185/63 H 05/16/21 16:00 61 16 192/87 H 05/16/21 14:19 60 18 184/99 H 05/16/21 11:55 36.8 C 73 20 197/77 H Pulse Ox 05/16/21 22:16 96 05/16/21 19:40 97 05/16/21 18:24 98 05/16/21 17:38 98 05/16/21 16:00 98 05/16/21 14:19 98 05/16/21 11:55 100 PG Care Time/CCT Total # of Minutes Spent Total Time Spent with Patient: Total time spent is greater than 50% in coordination of care (as documented) at patient's floor/unit and/or counseling patient: Coding Level of Care Code 87813 Initial Inpt Care Lvl 3 Diagnoses Hematoma of left lower extremity S80.12XA Fall W19.XXXA Chronic kidney disease, stage IV (severe) N18.4 Atrial fibrillation I48.91 Atrial fibrillation type: unspecified (1) Atrial fibrillation Atrial fibrillation type: unspecified Qualified Code(s): I48.91 - Unspecified atrial fibrillation
[2021-05-17] MEDS: DICLOFENAC SOD 1% GEL 100 GM TUBE EXT PRN ×2 (00:33→20:00)
[2021-05-17] MEDS: HYDROCORTISONE 1% OINT 30 GM TUBE EXT PRN ×2 (00:36→19:59)
--- NOTE | 2021-05-17 07:35 | Hospitalist Progress Note ---
Date of Service May 17, 2021 Assessment & Plan (1) Hematoma of left lower extremity: Plan: (1) Hematoma of left lower extremity: Plan: No fracture on x ray for b/l knee, tibia/fibula, femur, pelvis Pain present on palpation, movement, hematoma in stages of healing -ordered ice pack (2) Fall: Plan: Heat CT neg -PT/OT consulted --> recommend SNF rehab -Uses a walker at baseline, fall precautions, as above -had extensive discussion with patient regarding her fall risk, risk of readmission and possible should she go home without supervision. Patient adamant she does not want SNF rehab, wants home PT, lives alone at home. Daughter lives nearby but is currently on vacation for 3 wks -patient had discussion with case management, is now ok with going to [facility] (3) Chronic kidney disease, stage IV (severe): - appears her baseline is 1.6-1.9 -current creat 1.53 - Checking BMP (4) Atrial fibrillation: -Permanent, rate controlled on admission -Continue rate controlling agents metoprolol -Anticoagulated on Eliquis (5) CHF -continue lasix every other day ()Gout -continue allopurinol ()Depression -continue sertraline, ativan FENa: regular Code Status: DNR/DNI DVT PPX: eliquis PT/OT: recommend SNF Case Management: [facility] Dispo: med/Lis Murray Do PGY 1, FCM (2) Frequent falls: (3) Chronic kidney disease, stage IV (severe): (4) Atrial fibrillation: (5) Systolic CHF, chronic: (6) Depression: Admission and Anticipated Discharge Date Admission Date: May 16, 2021 Supervising Physician Co-Signing Physician Notes Attending attestation Pt seen and examined in concert with Dr. Willson. In agreement with the documented findings as noted in the resident documentation with any exceptions or additions as noted here. Resting in chair with ongoing aching pain of the LLE well controlled on present medication with activity modification. On examination, S1/S2 nl IRR. CTAB. LLE with diffuse swelling and ecchymosis c/w hematoma with considerable TTP and gait hesitance. Hematoma of the LLE with recurrent falls - no sign of fracture or overyling infection. PT assessment recs rehabilitation with strong medical agreement to prevent further injury. 35 minutes spent at bedside with this patient reviewing the indications for rehab, supporting therapy, need for ongoing support during return of strength and stability in the setting of injury. Discussion with case management to follow. CKD IV - at baseline, daily BMP, avoid nephrotoxic medications Atrial fibrillation - continue Eliquis, metoprolol Else see resident documentation as noted. Subjective 85yo Female here for left leg hematoma, weakness and recurrent falls, seen at bedside calm comfortable cooperative. Patient states she did not want to come to the hospital, her insurance made her some to check for fracture, she would like to go home. Patient injured her leg last wednesday after a sudden bought of weakness on the stairs, may have tripped on the stairs, fell but did not hit her head, she was able to ambulate afterwards but the pain in her leg got worse and she developed a large hematoma. Patient states she lives at home alone, her daughter lives nearby but is gone on a 3 week vacation. Patient states she has beent o [facility] for SNF rehab 4 times in the past and states she does not want to return, says they are understaffed. Patient is adament she wants to continue living in her own house, she is open to home PT. Patient understands she is a large fall risk, she states home assistance is expensive, patient agreeable to speak with case management regarding possibility of home assistance. She states her left leg is painful on light touch, denies calf tenderness, denies weakness at foot, sensation is intact. She denies any recent illness or weakness in other extremities, states she does not drive, has a chair lift inside her house. She states she broke her right leg last year. Review of Systems Review of Systems: Negative fever chills Negative headache dizziness Negative chest pain palpitations SOB Negative nausea vomitting diarrhea constipation Physical Exam Constitutional: WD/WN, vitals as above cooperative and comfortable Eyes: PERRL, conjunctivae normal, anicteric sclerae ENMT: external ear and nose normal, oropharynx normal Neck: trachea midline, no thyromegaly Respiratory: normal respiratory effort, lungs clear to auscultation Cardiovascular: Rate/Rhythm: regular rate and regular rhythm Heart Sounds: + murmur (systolic) Chest (Breasts): Chest: normal inspection of chest Gastrointestinal (Abdomen): Inspection/Auscultation: abdomen normal to inspection (colostomy bag present no erythema) Percussion/Palpation: abdomen soft; abdomen nontender Musculoskeletal: b/l dorsiflexion of foot 4/5, plantarflexion 5/5, sensation intact throughout. Hematoma across anterior left leg sparing foot, knee and calf in stages of healing, swollen and tender, skin intact Skin: no rashes, warm and dry Results & Data Results & Data ([facility]) Vital Signs (Past 12 Hours) Vital Signs Temp Pulse Resp BP BP Pulse Ox 05/16/21 22:16 36.3 C L 17 164/72 H 96 05/16/21 19:40 36.8 C 60 16 170/75 H 97 Laboratory Results 05/17/21 05/17/21 05/16/21 Range/Units 07:40 07:40 16:15 WBC 7.45 (4.8-10.8) K/uL RBC 3.51 L (4.2-5.4) M/uL Hgb 11.0 L (12.0-16.0) g/dL Hct 33.1 L (37-47) % MCV 94.3 (80-100) fL MCH 31.3 (25-34) pg MCHC 33.2 (32-36) g/dL RDW Std Deviation 49.5 H (36.4-46.3) fL RDW Coeff of Thee 14.4 (11.5-14.5) % Plt Count 186 (130-400) K/uL MPV 9.8 (7.4-10.4) fL Immature Gran % (Auto) 0.4 % Neut % (Auto) 67.7 % Lymph % (Auto) 11.4 % [place] % (Auto) 19.1 % Eos % (Auto) 1.3 % Baso % (Auto) 0.1 % Neut # (Auto) 5.04 (1.4-6.5) K/uL Lymph # (Auto) 0.85 L (1.2-3.4) K/uL [place] # (Auto) 1.42 H (0.11-0.59) K/uL Eos # (Auto) 0.10 (0-0.5) K/uL Baso # (Auto) 0.01 (0-0.2) K/uL Immature Gran # (Auto) 0.03 H (0.00-0.02) K/uL Sodium 134 L (136-145) mmol/L Potassium 4.0 (3.5-5.1) mmol/L Chloride 98 (98-107) mmol/L Carbon Dioxide 29 (21-32) mmol/L Anion Gap 7 (3-11) BUN 43 H (6-23) mg/dl Creatinine 1.45 H (0.6-1.2) mg/dl Est Cr Clr Drug Dosing 25.3 ml/min Est GFR ( Amer) 37.4 ml/min Est GFR (Non-Af Amer) 32.3 ml/min BUN/Creatinine Ratio 29.7 H (10-20) Glucose 106 H (70-99(Fasting)) mg/dl Calcium 9.0 (8.5-10.1) mg/dl SARS-CoV-2, RNA, NAAT NEGATIVE (NEGATIVE) Diagnostic Findings Impressions Cervical Spine CT 05/16/21 11:36 CT OF THE CERVICAL SPINE WITHOUT CONTRAST CLINICAL HISTORY: Fall on eliquis. COMPARISON STUDY: Cervical spine CT November 19, 2020. TECHNIQUE: Helical axial images of the cervical spine were obtained without IV contrast. Sagittal and coronal reconstructions were viewed. Automated exposure control was utilized for the study. A dose lowering technique was utilized adhering to the principles of ALARA. FINDINGS: Reversal of the normal cervical lordosis is unchanged. Craniocervical junction is intact. Degenerative changes at the C1-C2 articulation are noted. There is severe multilevel facet arthrosis and moderate to severe multilevel degenerative disc disease. No acute cervical spine fracture is identified. The appearance of the cervical spine is similar to prior exam. IMPRESSION: No acute cervical spine fracture or subluxation. ACT 112: Negative or not required by law. Electronically signed by: Mike Zuniga M.D. 05/16/2021 1:26 PM Chest X-Ray 05/16/21 11:36 XR chest 1V not portable HISTORY: 85 years-old Female Fall acute chest trauma status post fall COMPARISON: Chest radiograph 11/19/2020, CT abdomen and pelvis 02/08/2019 TECHNIQUE: Portable upright AP view of the chest FINDINGS: Cardiac silhouette is enlarged. Left subclavian pacer. Atherosclerotic plaque of the thoracic aorta. Chronic blunting of the costophrenic angles with chronic interstitial coarsening. No pneumothorax, large pleural effusion or overt pulmonary edema. Degenerative changes of the shoulders and spine. 5.6 cm round retrocardiac opacity correlates with the previously seen Bochdalek hernia. IMPRESSION: 1. Cardiomegaly without acute process. 2. Left Bochdalek hernia. ACT 112: Negative or not required by law. The above report was generated using voice recognition software. It may contain grammatical, syntax or spelling errors. Electronically signed by: Doc Gordon M.D. 05/16/2021 2:05 PM Femur X-Ray 05/16/21 11:36 XR femur RT 2V routine, XR tibia fibula RT 2V, XR pelvis 1-2V routine, XR femur LT 2V routine, XR knee LT 3V, XR tibia fibula LT 2V CLINICAL HISTORY: Fall, pain TECHNIQUE: 2 radiographic views of the bilateral femurs were obtained. Single frontal view of the pelvis was obtained. Radiographs of the bilateral knees and tibia/fibulas were obtained. Comparison: None available at the time of this dictation. FINDINGS: Severe degenerative changes are seen in the bilateral knees most prominent in the patellofemoral and lateral compartments. Degenerative changes are also seen in the bilateral ankles. There is irregularity in the distal right fibula. There is normal anatomic alignment of the bones. The visualized portion of the hip and knee joints are unremarkable. There is normal bone mineralization. Vascular calcifications are noted. Bilateral soft tissue swelling is seen most prominent in the ankles. IMPRESSION: No evidence of acute fracture in the pelvis, bilateral femurs, bilateral knees, and bilateral lower legs. Soft tissue swelling is seen most prominently about the bilateral ankles. If there is concern for ankle fracture, dedicated radiographs of the ankle are recommended. Severe degenerative changes are seen in the knees and ankles. ACT 112: Negative or not required by law. Electronically signed by: Alessandro Castro M.D. 05/16/2021 2:[address] 05/16/21 11:36 CT OF THE HEAD WITHOUT CONTRAST CLINICAL HISTORY: Fall on Eliquis. COMPARISON STUDY: Head CT November 19, 2020. TECHNIQUE: Helical axial images of the head were obtained without IV contrast. Automated exposure control was utilized for the study. A dose lowering technique was utilized adhering to the principles of ALARA. FINDINGS: No acute intracranial hemorrhage, midline shift or mass effect is present. White matter hypodensities are unchanged and suggest small vessel disease. The ventricular system is unremarkable. The basal cisterns are patent. No extra-axial collections are present. There are no findings to suggest acute dural sinus thrombosis or acute territorial infarct. No significant calvarial abnormalities are present. Visualized portions of the sinuses and mastoid air cells are clear. IMPRESSION: 1. No acute intracranial findings. No change in appearance of the brain. 2. No calvarial fracture. ACT 112: Negative or not required by law. Electronically signed by: Mike Zuniga M.D. 05/16/2021 1:18 PM Knee X-Ray 05/16/21 11:36 XR femur RT 2V routine, XR tibia fibula RT 2V, XR pelvis 1-2V routine, XR femur LT 2V routine, XR knee LT 3V, XR tibia fibula LT 2V CLINICAL HISTORY: Fall, pain TECHNIQUE: 2 radiographic views of the bilateral femurs were obtained. Single frontal view of the pelvis was obtained. Radiographs of the bilateral knees and tibia/fibulas were obtained. Comparison: None available at the time of this dictation. FINDINGS: Severe degenerative changes are seen in the bilateral knees most prominent in the patellofemoral and lateral compartments. Degenerative changes are also seen in the bilateral ankles. There is irregularity in the distal right fibula. There is normal anatomic alignment of the bones. The visualized portion of the hip and knee joints are unremarkable. There is normal bone mineralization. Vascular calcifications are noted. Bilateral soft tissue swelling is seen most prominent in the ankles. IMPRESSION: No evidence of acute fracture in the pelvis, bilateral femurs, bilateral knees, and bilateral lower legs. Soft tissue swelling is seen most prominently about the bilateral ankles. If there is concern for ankle fracture, dedicated radiographs of the ankle are recommended. Severe degenerative changes are seen in the knees and ankles. ACT 112: Negative or not required by law. Electronically signed by: Alessandro Castro M.D. 05/16/2021 2:08 PM Pelvis X-Ray 05/16/21 11:36 XR femur RT 2V routine, XR tibia fibula RT 2V, XR pelvis 1-2V routine, XR femur LT 2V routine, XR knee LT 3V, XR tibia fibula LT 2V CLINICAL HISTORY: Fall, pain TECHNIQUE: 2 radiographic views of the bilateral femurs were obtained. Single frontal view of the pelvis was obtained. Radiographs of the bilateral knees and tibia/fibulas were obtained. Comparison: None available at the time of this dictation. FINDINGS: Severe degenerative changes are seen in the bilateral knees most prominent in the patellofemoral and lateral compartments. Degenerative changes are also seen in the bilateral ankles. There is irregularity in the distal right fibula. There is normal anatomic alignment of the bones. The visualized portion of the hip and knee joints are unremarkable. There is normal bone mineralization. Vascular calcifications are noted. Bilateral soft tissue swelling is seen most prominent in the ankles. IMPRESSION: No evidence of acute fracture in the pelvis, bilateral femurs, bilateral knees, and bilateral lower legs. Soft tissue swelling is seen most prominently about the bilateral ankles. If there is concern for ankle fracture, dedicated radiographs of the ankle are recommended. Severe degenerative changes are seen in the knees and ankles. ACT 112: Negative or not required by law. Electronically signed by: Alessandro Castro M.D. 05/16/2021 2:08 PM Tibia/Fibula X-Ray 05/16/21 11:36 XR femur RT 2V routine, XR tibia fibula RT 2V, XR pelvis 1-2V routine, XR femur LT 2V routine, XR knee LT 3V, XR tibia fibula LT 2V CLINICAL HISTORY: Fall, pain TECHNIQUE: 2 radiographic views of the bilateral femurs were obtained. Single frontal view of the pelvis was obtained. Radiographs of the bilateral knees and tibia/fibulas were obtained. Comparison: None available at the time of this dictation. FINDINGS: Severe degenerative changes are seen in the bilateral knees most prominent in the patellofemoral and lateral compartments. Degenerative changes are also seen in the bilateral ankles. There is irregularity in the distal right fibula. There is normal anatomic alignment of the bones. The visualized portion of the hip and knee joints are unremarkable. There is normal bone mineralization. Vascular calcifications are noted. Bilateral soft tissue swelling is seen most prominent in the ankles. IMPRESSION: No evidence of acute fracture in the pelvis, bilateral femurs, bilateral knees, and bilateral lower legs. Soft tissue swelling is seen most prominently about the bilateral ankles. If there is concern for ankle fracture, dedicated radiographs of the ankle are recommended. Severe degenerative changes are seen in the knees and ankles. ACT 112: Negative or not required by law. Electronically signed by: Alessandro Castro M.D. 05/16/2021 2:08 PM Medications Administered Current Inpatient Medications Acetaminophen (Acetaminophen 325 Mg Tab) 650 mg PO Q4H PRN PRN Reason: pain/fever Stop: 06/15/21 16:28 Last Admin: 05/16/21 21:47 Dose: 325 mg Documented by: Allopurinol (Allopurinol 100 Mg Tab) 100 mg PO QAM [facility] Stop: 06/16/21 08:59 Last Admin: 05/17/21 08:48 Dose: 100 mg Documented by: Apixaban (Apixaban 2.5 Mg Tab) 2.5 mg PO BID [facility] Stop: 06/15/21 20:59 Last Admin: 05/17/21 08:47 Dose: 2.5 mg Documented by: Diclofenac Sodium (Diclofenac Sod 1% Gel 100 Gm Tube) 2 gm EXT Q4H PRN PRN Reason: shoulder pain Stop: 06/15/21 22:29 Last Admin: 05/17/21 00:33 Dose: 2 gm Documented by: Furosemide (Furosemide 20 Mg Tab) 20 mg PO Q2D@0900 [facility] Stop: 06/16/21 08:59 Last Admin: 05/17/21 08:47 Dose: 20 mg Documented by: Hydrocortisone (Hydrocortisone 1% Oint 30 Gm Tube) 1 appln EXT Q4H PRN PRN Reason: Itching Stop: 06/15/21 21:42 Last Admin: 05/17/21 00:36 Dose: 1 appln Documented by: Lorazepam (Lorazepam 0.5 Mg Tab) 0.5 mg PO HS [facility] Stop: 06/15/21 20:59 Last Admin: 05/16/21 21:47 Dose: 0.5 mg Documented by: Metoprolol Succinate (Metoprolol Succ 50mg Ext Rel Tab) 100 mg PO BID [facility] Stop: 06/15/21 20:59 Last Admin: 05/17/21 08:47 Dose: 100 mg Documented by: Multivitamins/Minerals (Cerovite Adv Formula Tab) [facility] [place]: 06/16/21 08:59 Last Admin: 05/17/21 08:48 Dose: 1 tab Documented by: Nitroglycerin (Nitroglycerin Sl 0.4 Mg/Tab Tab) 0.4 mg SL UD PRN PRN Reason: Chest Pain Stop: 06/15/21 16:49 Pantoprazole Sodium (Pantoprazole 40 Mg Tab) 40 mg PO [facility] Stop: 06/16/21 08:59 Last Admin: 05/17/21 08:48 Dose: 40 mg Documented by: Sertraline HCl (Sertraline Hcl 50 Mg Tablet) 25 mg PO HS [facility] Stop: 06/15/21 20:59 Last Admin: 05/16/21 21:48 Dose: 25 mg Documented by: Resident Activity Tracking Resident Involvement: Resident Care Provided Care Provided: Adult Hospital Medicine (1) Depression Depression Type: unspecified Qualified Code(s): F32.9 - Major depressive disorder, single episode, unspecified
[2021-05-17 07:53] LABS: Basophils # (auto) 0.01 K/uL (0-0.2); Basophils % (auto) 0.1 %; Eosinophils % (auto) 1.3 %; Hematocrit (blood only) 33.1 % (37-47); Immature Granulocytes # (auto) 0.03 K/uL (0.00-0.02); Immature Granulocytes % (auto) 0.4 %; Lymphocytes # (auto) 0.85 K/uL (1.2-3.4); Lymphocytes % (auto) 11.4 %; Mean Corpuscular Hemoglobin 31.3 pg (25-34); Mean Corpuscular Hgb Conc 33.2 g/dL (32-36); Mean Corpuscular Volume 94.3 fL (80-100); Mean Platelet Volume 9.8 fL (7.4-10.4); Monocytes # (auto) 1.42 K/uL (0.11-0.59); Monocytes % (auto) 19.1 %; Neutrophils # (auto) 5.04 K/uL (1.4-6.5); Neutrophils % (auto) 67.7 %; Platelet Count 186 K/uL (130-400); RDW Coefficient of Variation 14.4 % (11.5-14.5); RDW Standard Deviation 49.5 fL (36.4-46.3); Red Blood Count 3.51 M/uL (4.2-5.4); White Blood Count 7.45 K/uL (4.8-10.8)
[2021-05-17 08:15] LABS: BUN Creatinine Ratio 29.7 (10-20); Creatinine Clr Calc Pharmacy 25.3 ml/min; Est GFR (African American) 37.4 ml/min; Est GFR (Non-African American) 32.3 ml/min
[2021-05-17] MEDS: METOPROLOL SUCC 50MG EXT REL TAB PO SCH ×2 (08:47→19:58)
[2021-05-17] MEDS: APIXABAN 2.5 MG TAB PO SCH ×2 (08:47→20:58)
[2021-05-17] MEDS: FUROSEMIDE 20 MG TAB PO SCH (08:47)
[2021-05-17] MEDS: allopurinoL 100 MG TAB PO SCH (08:48)
[2021-05-17] MEDS: PANTOprazole 40 MG TAB PO SCH (08:48)
[2021-05-17] MEDS: CEROVITE ADV FORMULA TAB PO SCH (08:48)
[2021-05-17] MEDS: LORazepam 0.5 MG TAB PO SCH (19:57)
[2021-05-17] MEDS: SERTRALINE HCL 50 MG TABLET PO SCH (19:58)
[2021-05-18 05:53] LABS: Hemoglobin 10.7 g/dL (12.0-16.0); Mean Corpuscular Hemoglobin 31.4 pg (25-34); Mean Corpuscular Hgb Conc 33.4 g/dL (32-36); Mean Corpuscular Volume 93.8 fL (80-100); Mean Platelet Volume 9.9 fL (7.4-10.4); Platelet Count 193 K/uL (130-400); RDW Coefficient of Variation 14.3 % (11.5-14.5); RDW Standard Deviation 48.7 fL (36.4-46.3); Red Blood Count 3.41 M/uL (4.2-5.4); White Blood Count 7.43 K/uL (4.8-10.8)
[2021-05-18 06:20] LABS: BUN Creatinine Ratio 32.3 (10-20); Calcium 8.8 mg/dl (8.5-10.1); Creatinine Clr Calc Pharmacy 23.2 ml/min; Est GFR (African American) 33.7 ml/min; Est GFR (Non-African American) 29.1 ml/min; Potassium 3.9 mmol/L (3.5-5.1)
--- NOTE | 2021-05-18 07:40 | Hospitalist Progress Note ---
Date of Service May 18, 2021 Assessment & Plan (1) Hematoma of left lower extremity: Plan: (1) Hematoma of left lower extremity: Plan: Obtained after fall on the single step to her front door No fracture on x ray for b/l knee, tibia/fibula, femur, pelvis Pain present on palpation, movement, hematoma in stages of healing Ordered ice pack (2) Fall: Plan: Patient has history of multiple falls, last year fell broke her right leg, this time fell on 1st step to house due to weakness/tripped -Baseline weakness severe osteoarthritis with limited mobility, requires chair lift to go upstairs, lives alone -Head CT neg -PT/OT consulted --> recommend SNF rehab -Uses a walker at baseline, fall precautions, as above -had extensive discussion with patient regarding her fall risk, risk of readmission and possible should she go home without supervision. Patient adamant she does not want SNF rehab, wants home PT, lives alone at home. Daughter lives nearby but is currently on vacation for 3 wks, other daughter lives in [facility] -patient had discussion with case management, is now ok with going to [facility] --> next day changed her mind denying inpatient rehab -after extensive discussion, patient to go home with daughter on Wednesday, will have home health and home PT -Case management updated (3) Chronic kidney disease, stage IV (severe): - appears her baseline is 1.6-1.9 - current creat 1.58 - Checking BMP (4) Atrial fibrillation: -Permanent, rate controlled on admission -Continue rate controlling agents metoprolol -Anticoagulated on Eliquis (5) CHF -continue lasix every other day ()Gout -continue allopurinol ()Depression -continue sertraline, ativan FENa: regular Code Status: DNR/DNI DVT PPX: eliquis PT/OT: recommend SNF Case Management: home with home health and home PT, daughter to bring her home Wednesday Dispo: med/tele Lis Willson Do PGY 1, FCM (2) Frequent falls: (3) Chronic kidney disease, stage IV (severe): (4) Atrial fibrillation: (5) Systolic CHF, chronic: (6) Depression: Admission and Anticipated Discharge Date Admission Date: May 16, 2021 Supervising Physician Co-Signing Physician Notes Attending attestation Pt seen and examined in concert with Dr. Willson. In agreement with the documented findings as noted in the resident documentation with any exceptions or additions as noted here. Resting in chair with improvement in LLE pain with elevation, ice, pain medications. Worsens with ambulation/standing with requirement of assist. On examination, S1/S2 nl IRR. CTAB. LLE with diffuse swelling and ecchymosis c/w hematoma with considerable TTP and gait hesitance. Hematoma of the LLE with recurrent falls - no sign of fracture or overlying infection. PT assessment recs rehabilitation with strong medical agreement to prevent further injury. Yesterday, patient agreed to rehab in what she reports was "a moment of weakness". 35 ADDITIONAL minutes spent at bedside with this patient reviewing the indications for rehab, supporting therapy, need for support during return of strength and stability in the setting of injury as well as the potential home barriers including - step to get into the house (same one she fell on prompting this injury and discussion) and tasks to do. No family local to help out, though daughter may be available for a short stint this week. No available transport through friends/family. Despite strong recommendations towards medical support, patient continues to refuse placement. Medical team will d/w case management re: options for appropriate levels of home care. CKD IV - at baseline, daily BMP, avoid nephrotoxic medications Atrial fibrillation - continue Eliquis, metoprolol Else see resident documentation as noted. Subjective 85yo Female here for left leg hematoma, weakness and recurrent falls, seen at bedside. Patient states she slept poorly last night and has changed her mind regarding inpatient rehab, states her decision yesterday was made in a moment of weakness and now insists upon returning home, she refuses inpatient rehab. Discussed with patient her plan of getting home, patient states she expected the hospital to provide transportation home, she will get in the house by using a house rodriguez and will ride her chairlift to get to the upper floor of the house where she expects her walker to be. Discussed with patient how she will navigate the single step to her front door that she initially tripped on to cause her current injury, patient does not recognize this as a problem despite lengthy discussion. Discussed with patient what she expects to do when she inevitably falls again, patient states "if it's my time, I'll go", otherwise states she will call 911 to help her get off the floor. Discussed with patient what she will do if she gets stuck on the toilet, patient states she has a chair nearby to help her get up. Per PT note and her history she does not have the arm strength to pull herself up. When questioned, patient states she is very independent and does not want inpatient rehab. Patient states she has life a lert but does not wear it because it goes off too easily, states she carries her phone everywhere with her. Discussed with patient we feel unsafe letting her go home alone but patient could go home against medical advice if she found her own transportation, patient is less interested in that option. Discussed with patient we would be more comfortable if she had family or friends bring her home and ensure her house is in order for her to navigate. Patient agreeable to home health, when asked repeatedly about getting family assistance she states they are too busy. Had extensive conversation regarding contacting family for assistance, case management has reached out to daughter in [place] who can pick her up on Wednesday. Patient later became tearful about being troublesome but insists not wanting inpatient facility. Review of Systems Review of Systems: Negative fever chills Negative headache dizziness Negative chest pain palpitations SOB Negative nausea vomitting diarrhea constipation Physical Exam Constitutional: WD/WN, vitals as above cooperative and comfortable Eyes: PERRL, conjunctivae normal, anicteric sclerae ENMT: external ear and nose normal, oropharynx normal Neck: trachea midline, no thyromegaly Respiratory: normal respiratory effort, lungs clear to auscultation Cardiovascular: Rate/Rhythm: regular rate and regular rhythm Heart Sounds: + murmur (systolic) Chest (Breasts): Chest: normal inspection of chest Gastrointestinal (Abdomen): Inspection/Auscultation: abdomen normal to inspection (colostomy bag present no erythema) Percussion/Palpation: abdomen soft; abdomen nontender Skin: no rashes, warm and dry Results & Data Results & Data ([facility]) Vital Signs (Past 12 Hours) Vital Signs Temp Pulse Pulse Resp BP Pulse Ox 05/17/21 22:51 36.7 C 61 17 165/71 H 96 05/17/21 19:56 62 146/57 H Laboratory Results 05/18/21 05/18/21 Range/Units 05:37 05:37 WBC 7.43 (4.8-10.8) K/uL RBC 3.41 L (4.2-5.4) M/uL Hgb 10.7 L (12.0-16.0) g/dL Hct 32.0 L (37-47) % MCV 93.8 (80-100) fL MCH 31.4 (25-34) pg MCHC 33.4 (32-36) g/dL RDW Std Deviation 48.7 H (36.4-46.3) fL RDW Coeff of Thee 14.3 (11.5-14.5) % Plt Count 193 (130-400) K/uL MPV 9.9 (7.4-10.4) fL Sodium 133 L (136-145) mmol/L Potassium 3.9 (3.5-5.1) mmol/L Chloride 96 L (98-107) mmol/L Carbon Dioxide 28 (21-32) mmol/L Anion Gap 9 (3-11) BUN 51 H (6-23) mg/dl Creatinine 1.58 H (0.6-1.2) mg/dl Est Cr Clr Drug Dosing 23.2 ml/min Est GFR ( Amer) 33.7 ml/min Est GFR (Non-Af Amer) 29.1 ml/min BUN/Creatinine Ratio 32.3 H (10-20) Glucose 116 H (70-99(Fasting)) mg/dl Calcium 8.8 (8.5-10.1) mg/dl Medications Administered Current Inpatient Medications Acetaminophen (Acetaminophen 325 Mg Tab) 650 mg PO Q4H PRN PRN Reason: pain/fever Stop: 06/15/21 16:28 Last Admin: 05/16/21 21:47 Dose: 325 mg Documented by: Allopurinol (Allopurinol 100 Mg Tab) 100 mg PO QAM [facility] Stop: 06/16/21 08:59 Last Admin: 05/18/21 08:11 Dose: 100 mg Documented by: Apixaban (Apixaban 2.5 Mg Tab) 2.5 mg PO BID [facility] Stop: 06/15/21 20:59 Last Admin: 05/18/21 08:10 Dose: 2.5 mg Documented by: Diclofenac Sodium (Diclofenac Sod 1% Gel 100 Gm Tube) 2 gm EXT Q4H PRN PRN Reason: shoulder pain Stop: 06/15/21 22:29 Last Admin: 05/17/21 20:00 Dose: 2 gm Documented by: Furosemide (Furosemide 20 Mg Tab) 20 mg PO Q2D@0900 [facility] Stop: 06/16/21 08:59 Last Admin: 05/17/21 08:47 Dose: 20 mg Documented by: Hydrocortisone (Hydrocortisone 1% Oint 30 Gm Tube) 1 appln EXT Q4H PRN PRN Reason: Itching Stop: 06/15/21 21:42 Last Admin: 05/17/21 19:59 Dose: 1 appln Documented by: Lorazepam (Lorazepam 0.5 Mg Tab) 0.5 mg PO [facility] Stop: 06/15/21 20:59 Last Admin: 05/17/21 19:57 Dose: 0.5 mg Documented by: Metoprolol Succinate (Metoprolol Succ 50mg Ext Rel Tab) 100 mg PO BID [facility] Stop: 06/15/21 20:59 Last Admin: 05/18/21 08:12 Dose: 100 mg Documented by: Multivitamins/Minerals (Cerovite Adv Formula Tab) 1 tab PO QAM [facility] Stop: 06/16/21 08:59 Last Admin: 05/18/21 08:10 Dose: 1 tab Documented by: Nitroglycerin (Nitroglycerin Sl 0.4 Mg/Tab Tab) 0.4 mg SL UD PRN PRN Reason: Chest Pain Stop: 06/15/21 16:49 Pantoprazole Sodium (Pantoprazole 40 Mg Tab) 40 mg PO QAM [facility] Stop: 06/16/21 08:59 Last Admin: 05/18/21 08:10 Dose: 40 mg Documented by: Sertraline HCl (Sertraline Hcl 50 Mg Tablet) 25 mg PO [facility] Stop: 06/15/21 20:59 Last Admin: 05/17/21 19:58 Dose: 25 mg Documented by: Resident Activity Tracking Resident Involvement: Resident Care Provided Care Provided: Adult Hospital Medicine (1) Depression Depression Type: unspecified Qualified Code(s): F32.9 - Major depressive disorder, single episode, unspecified
[2021-05-18] MEDS: PANTOprazole 40 MG TAB PO SCH (08:10)
[2021-05-18] MEDS: APIXABAN 2.5 MG TAB PO SCH ×2 (08:10→21:27)
[2021-05-18] MEDS: CEROVITE ADV FORMULA TAB PO SCH (08:10)
[2021-05-18] MEDS: allopurinoL 100 MG TAB PO SCH (08:11)
[2021-05-18] MEDS: METOPROLOL SUCC 50MG EXT REL TAB PO SCH ×2 (08:12→21:28)
[2021-05-18] MEDS: LORazepam 0.5 MG TAB PO SCH (21:27)
[2021-05-18] MEDS: SERTRALINE HCL 50 MG TABLET PO SCH (21:27)
[2021-05-19 07:10] LABS: BUN Creatinine Ratio 32.3 (10-20); Creatinine Clr Calc Pharmacy 23.6 ml/min; Est GFR (African American) 34.5 ml/min; Est GFR (Non-African American) 29.8 ml/min; Potassium 3.9 mmol/L (3.5-5.1)
[2021-05-19] MEDS: APIXABAN 2.5 MG TAB PO SCH ×2 (08:21→20:18)
[2021-05-19] MEDS: allopurinoL 100 MG TAB PO SCH (08:21)
[2021-05-19] MEDS: CEROVITE ADV FORMULA TAB PO SCH (08:21)
[2021-05-19] MEDS: METOPROLOL SUCC 50MG EXT REL TAB PO SCH ×2 (08:21→20:19)
[2021-05-19] MEDS: FUROSEMIDE 20 MG TAB PO SCH (08:21)
[2021-05-19] MEDS: PANTOprazole 40 MG TAB PO SCH (08:21)
--- NOTE | 2021-05-19 10:29 | Hospitalist Progress Note ---
Date of Service May 19, 2021 Assessment & Plan (1) Hematoma of left lower extremity: Plan: (1) Fall, ambulatory dysfunction -H/o multiple falls; fell on steps to house due to weakness/tripped -Baseline weakness severe osteoarthritis with limited mobility, requires chair lift to go upstairs, lives alone -Head CT neg -XR negative for fracture -PT/OT --> recommend SNF -Uses a walker at baseline, fall precautions -Patient adamant she does not want SNF rehab, wants home PT, lives alone at home. 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 Case management following. (2) Hematoma of left lower extremity -s/p fall on the single step to her front door, see above -Pain present on palpation, movement, hematoma in stages of healing -Can use ice packs treatment (3) Chronic kidney disease, stage IV (severe), stable - appears her baseline is 1.6-1.9 - current creat 1.55 - monitor BMP (4) Atrial fibrillation -Permanent, rate controlled on admission -Cont. rate controlling agents metoprolol -Anticoagulated on Eliquis (5) CHF -continue lasix every other day (6) Gout -continue allopurinol (7) Depression -continue sertraline, ativan FENa: regular Code Status: DNR/DNI DVT PPX: Eliquis PT/OT: recommend SNF Case Management: home with home health and home PT, daughter to bring her home Wednesday Dispo: med/tele (2) Frequent falls: (3) Chronic kidney disease, stage IV (severe): (4) Atrial fibrillation: (5) Systolic CHF, chronic: (6) Depression: Admission and Anticipated Discharge Date Admission Date: May 18, 2021 Supervising Physician Co-Signing Physician Notes I personally examined the patient and verified all rodriguez points of history and exam, discussed case, and agree with decision making with Dr Lakia shah. for home w dtr tomorrow as she refuses placement/rehab vitals noted nad breathing unlabored no accessory muscles good effort skin no rashes no pallor or icterus fall/weakness/leg hematoma - ideally would go to inpt facility for PT/OT and ultimate goal for return home more safely but refuses. fortunately at least dtr coming so for short term pt will not be alone; possibly dtr will make more headway on convincing her that rehab might be a better option otherwise as above Subjective No overnight events. Laying comfortably in bed. She is adamant about plan of going home tomorrow with daughter with home health. She would like some more PT/OT before begin discharged. She thinks the hematoma on her left lower leg is improving. Review of Systems Review of Systems: Constitutional: denies fevers, chills CV: denies chest pain Resp: denies shortness of breath, cough GI: denies abdominal pain, nausea, vomiting, constipation, diarrhea Physical Exam Physical Exam: General: awake, alert Head: Normocephalic Chest: Lungs clear to auscultation Cardiac: Irregularly irregular, +systolic murmur, no JVD Abdominal: soft, nondistended, +colostomy LLQ, no guarding Extremities: large ecchymosis on anterior left lower leg with mild tenderness to palpation, not warm to touch, calf soft; no signs of compartment syndrome Neuro: AAO x 3 Results & Data Results & [facility] ([facility]) Vital Signs (Past 12 Hours) Vital Signs Temp Pulse Resp BP Pulse Ox 05/19/21 07:39 36.6 C 67 18 181/75 H 69 L Resident Activity Tracking Resident Involvement: Resident Care Provided Care Provided: Adult Hospital Medicine (1) Depression Depression Type: unspecified Qualified Code(s): F32.9 - Major depressive disorder, single episode, unspecified
[2021-05-19] MEDS: ACETAMINOPHEN 325 MG TAB PO PRN (11:39)
--- NOTE | 2021-05-19 16:34 | Billing Data ---
Date of Service May 19, 2021 Coding Level of Care Code 60911 Subseq Hosp Care Lvl 1
[2021-05-19] MEDS: LORazepam 0.5 MG TAB PO SCH (20:12)
[2021-05-19] MEDS: SERTRALINE HCL 50 MG TABLET PO SCH (20:18)
[2021-05-19] MEDS: DICLOFENAC SOD 1% GEL 100 GM TUBE EXT PRN (20:28)
[2021-05-20 06:43] LABS: BUN Creatinine Ratio 42.6 (10-20); Est GFR (African American) 38.7 ml/min; Est GFR (Non-African American) 33.4 ml/min; Potassium 4.2 mmol/L (3.5-5.1)
[2021-05-20] MEDS: METOPROLOL SUCC 50MG EXT REL TAB PO SCH (07:52)
[2021-05-20] MEDS: APIXABAN 2.5 MG TAB PO SCH (07:52)
[2021-05-20] MEDS: allopurinoL 100 MG TAB PO SCH (07:53)
[2021-05-20] MEDS: CEROVITE ADV FORMULA TAB PO SCH (07:53)
[2021-05-20] MEDS: PANTOprazole 40 MG TAB PO SCH (07:53)
--- NOTE | 2021-05-20 16:31 | Discharge Summary ---
Date of Service May 20, 2021 Admission HPI Per Admitting Provider 85 yo female presents after sustaining a fall where her left leg hit a step of the staircase. This occurred last Wednesday. Since then her leg has been painful and has been bruising. Principal Diagnosis Fall, Ambulatory Dysfunction Discharge Exam General: awake, alert Head: Normocephalic Chest: Lungs clear to auscultation Cardiac: Irregularly irregular, +systolic murmur, no JVD Abdominal: soft, nondistended, +colostomy LLQ, no guarding Extremities: large ecchymosis on anterior left lower leg with mild tenderness to palpation, not warm to touch, calf soft; no signs of compartment syndrome Neuro: AAO x 3 Discharge Data Allergies Allergy/AdvReac Type Severity Reaction Status Date / Time Iodinated Contrast Media Allergy Severe Difficulty Verified 05/16/21 14:33 Breathing, Severe Hives Sulfa (Sulfonamide Allergy Mild . Verified 05/16/21 14:33 Antibiotics) cephalexin Allergy Unknown Unknown Verified 05/16/21 14:33 diphenhydramine Allergy Unknown DOES NOT Verified 05/16/21 14:33 REMEMBER potassium chloride Allergy Unknown unknown Verified 05/16/21 14:33 mushroom Allergy Unknown Verified 05/16/21 14:33 Consultations 05/16/21 16:03 ED Decision to Admit Stat Ordered Studies Laboratory Results WBC 7.43 K/uL (4.8-10.8) 05/18/21 05:37 RBC 3.41 M/uL (4.2-5.4) L 05/18/21 05:37 Hgb 10.7 g/dL (12.0-16.0) L 05/18/21 05:37 Hct 32.0 % (37-47) L 05/18/21 05:37 MCV 93.8 fL (80-100) 05/18/21 05:37 MCH 31.4 pg (25-34) 05/18/21 05:37 MCHC 33.4 g/dL (32-36) 05/18/21 05:37 RDW Std Deviation 48.7 fL (36.4-46.3) H 05/18/21 05:37 RDW Coeff of Thee 14.3 % (11.5-14.5) 05/18/21 05:37 Plt Count 193 K/uL (130-400) 05/18/21 05:37 MPV 9.9 fL (7.4-10.4) 05/18/21 05:37 Immature Gran % (Auto) 0.4 % 05/17/21 07:40 Neut % (Auto) 67.7 % 05/17/21 07:40 Lymph % (Auto) 11.4 % 05/17/21 07:40 [place] % (Auto) 19.1 % 05/17/21 07:40 Eos % (Auto) 1.3 % 05/17/21 07:40 Baso % (Auto) 0.1 % 05/17/21 07:40 Neut # (Auto) 5.04 K/uL (1.4-6.5) 05/17/21 07:40 Lymph # (Auto) 0.85 K/uL (1.2-3.4) L 05/17/21 07:40 [place] # (Auto) 1.42 K/uL (0.11-0.59) H 05/17/21 07:40 Eos # (Auto) 0.10 K/uL (0-0.5) 05/17/21 07:40 Baso # (Auto) 0.01 K/uL (0-0.2) 05/17/21 07:40 Immature Gran # (Auto) 0.03 K/uL (0.00-0.02) H 05/17/21 07:40 PT 10.4 Seconds (9.0-12.0) 05/16/21 11:56 INR 1.0 (0.9-1.1) 05/16/21 11:56 APTT 30.3 Seconds (21.0-31.0) 05/16/21 11:56 PTT Ratio 1.2 05/16/21 11:56 Sodium 134 mmol/L (136-145) L 05/20/21 05:22 Potassium 4.2 mmol/L (3.5-5.1) 05/20/21 05:22 Chloride 100 mmol/L (98-107) 05/20/21 05:22 Carbon Dioxide 27 mmol/L (21-32) 05/20/21 05:22 Anion Gap 7 (3-11) 05/20/21 05:22 BUN 60 mg/dl (6-23) H 05/20/21 05:22 Creatinine 1.41 mg/dl (0.6-1.2) H 05/20/21 05:22 Est Cr Clr Drug Dosing 26.0 ml/min 05/20/21 05:22 Est GFR ( Amer) 38.7 ml/min 05/20/21 05:22 Est GFR (Non-Af Amer) 33.4 ml/min 05/20/21 05:22 BUN/Creatinine Ratio 42.6 (10-20) H 05/20/21 05:22 Glucose 96 mg/dl (70-99(Fasting)) 05/20/21 05:22 Calcium 9.0 mg/dl (8.5-10.1) 05/20/21 05:22 Total Bilirubin 1.0 mg/dl (0.2-1.0) 05/16/21 11:56 AST 19 U/L (13-39) 05/16/21 11:56 ALT 9 U/L (7-52) 05/16/21 11:56 Alkaline Phosphatase 100 U/L (34-104) 05/16/21 11:56 Troponin I 0.03 ng/ml (0-0.04) 05/16/21 11:56 Total Protein 8.1 gm/dl (6.0-8.3) 05/16/21 11:56 Albumin 4.1 gm/dl (3.4-5.0) 05/16/21 11:56 Globulin 4.0 gm/dl (2.5-4.0) 05/16/21 11:56 Albumin/Globulin Ratio 1.0 (0.9-2) 05/16/21 11:56 Urine Color Yellow 05/16/21 12:38 Urine Appearance Clear (Clear) 05/16/21 12:38 Urine pH 7.0 (4.5-7.5) 05/16/21 12:38 Ur Specific [place] 1.013 (1.000-1.030) 05/16/21 12:38 Urine Protein Trace (Negative) H 05/16/21 12:38 Urine Glucose (UA) Negative (Negative) 05/16/21 12:38 Urine Ketones Negative (Negative) 05/16/21 12:38 Urine Blood Negative (Negative) 05/16/21 12:38 Urine Nitrite Negative (Negative) 05/16/21 12:38 Urine Bilirubin Negative (Negative) 05/16/21 12:38 Urine Urobilinogen Negative (Negative) 05/16/21 12:38 Ur Leukocyte Esterase Trace (Negative) H 05/16/21 12:38 Urine WBC (Auto) 5-10 /hpf (0-5) H 05/16/21 12:38 Urine RBC (Auto) 0-4 /hpf (0-4) 05/16/21 12:38 U Hyaline Cast (Auto) 1-5 /lpf (0-5) 05/16/21 12:38 U Epithel Cells (Auto) >30 /lpf (0-5) H 05/16/21 12:38 Urine Bacteria (Auto) Negative (Negative) 05/16/21 12:38 Waxy Casts 5-10 /lpf (0) H 05/16/21 12:38 Urine Yeast Not Reportable 05/16/21 12:38 SARS-CoV-2, RNA, NAAT NEGATIVE (NEGATIVE) 05/16/21 16:[address] 05/16/21 11:36 CT OF THE CERVICAL SPINE WITHOUT CONTRAST CLINICAL HISTORY: Fall on eliquis. COMPARISON STUDY: Cervical spine CT November 19, 2020. TECHNIQUE: Helical axial images of the cervical spine were obtained without IV contrast. Sagittal and coronal reconstructions were viewed. Automated exposure control was utilized for the study. A dose lowering technique was utilized adhering to the principles of ALARA. FINDINGS: Reversal of the normal cervical lordosis is unchanged. Craniocervical junction is intact. Degenerative changes at the C1-C2 articulation are noted. There is severe multilevel facet arthrosis and moderate to severe multilevel degenerative disc disease. No acute cervical spine fracture is identified. The appearance of the cervical spine is similar to prior exam. IMPRESSION: No acute cervical spine fracture or subluxation. ACT 112: Negative or not required by law. Electronically signed by: Mike Zuniga M.D. 05/16/2021 1:26 PM Chest X-Ray 05/16/21 11:36 XR chest 1V not portable HISTORY: 85 years-old Female Fall acute chest trauma status post fall COMPARISON: Chest radiograph 11/19/2020, CT abdomen and pelvis 02/08/2019 TECHNIQUE: Portable upright AP view of the chest FINDINGS: Cardiac silhouette is enlarged. Left subclavian pacer. Atherosclerotic plaque of the thoracic aorta. Chronic blunting of the costophrenic angles with chronic interstitial coarsening. No pneumothorax, large pleural effusion or overt pulmonary edema. Degenerative changes of the shoulders and spine. 5.6 cm round retrocardiac opacity correlates with the previously seen Bochdalek hernia. IMPRESSION: 1. Cardiomegaly without acute process. 2. Left Bochdalek hernia. ACT 112: Negative or not required by law. The above report was generated using voice recognition software. It may contain grammatical, syntax or spelling errors. Electronically signed by: Doc Gordon M.D. 05/16/2021 2:05 PM Femur X-Ray 05/16/21 11:36 XR femur RT 2V routine, XR tibia fibula RT 2V, XR pelvis 1-2V routine, XR femur LT 2V routine, XR knee LT 3V, XR tibia fibula LT 2V CLINICAL HISTORY: Fall, pain TECHNIQUE: 2 radiographic views of the bilateral femurs were obtained. Single frontal view of the pelvis was obtained. Radiographs of the bilateral knees and tibia/fibulas were obtained. Comparison: None available at the time of this dictation. FINDINGS: Severe degenerative changes are seen in the bilateral knees most prominent in the patellofemoral and lateral compartments. Degenerative changes are also seen in the bilateral ankles. There is irregularity in the distal right fibula. There is normal anatomic alignment of the bones. The visualized portion of the hip and knee joints are unremarkable. There is normal bone mineralization. Vascular calcifications are noted. Bilateral soft tissue swelling is seen most prominent in the ankles. IMPRESSION: No evidence of acute fracture in the pelvis, bilateral femurs, bilateral knees, and bilateral lower legs. Soft tissue swelling is seen most prominently about the bilateral ankles. If there is concern for ankle fracture, dedicated radiographs of the ankle are recommended. Severe degenerative changes are seen in the knees and ankles. ACT 112: Negative or not required by law. Electronically signed by: Alessandro Castro M.D. 05/16/2021 2:[address] 05/16/21 11:36 CT OF THE HEAD WITHOUT CONTRAST CLINICAL HISTORY: Fall on Eliquis. COMPARISON STUDY: Head CT November 19, 2020. TECHNIQUE: Helical axial images of the head were obtained without IV contrast. Automated exposure control was utilized for the study. A dose lowering technique was utilized adhering to the principles of ALARA. FINDINGS: No acute intracranial hemorrhage, midline shift or mass effect is present. White matter hypodensities are unchanged and suggest small vessel disease. The ventricular system is unremarkable. The basal cisterns are patent. No extra-axial collections are present. There are no findings to suggest acute dural sinus thrombosis or acute territorial infarct. No significant calvarial abnormalities are present. Visualized portions of the sinuses and mastoid air cells are clear. IMPRESSION: 1. No acute intracranial findings. No change in appearance of the brain. 2. No calvarial fracture. ACT 112: Negative or not required by law. Electronically signed by: Mike Zuniga M.D. 05/16/2021 1:18 PM Knee X-Ray 05/16/21 11:36 XR femur RT 2V routine, XR tibia fibula RT 2V, XR pelvis 1-2V routine, XR femur LT 2V routine, XR knee LT 3V, XR tibia fibula LT 2V CLINICAL HISTORY: Fall, pain TECHNIQUE: 2 radiographic views of the bilateral femurs were obtained. Single frontal view of the pelvis was obtained. Radiographs of the bilateral knees and tibia/fibulas were obtained. Comparison: None available at the time of this dictation. FINDINGS: Severe degenerative changes are seen in the bilateral knees most prominent in the patellofemoral and lateral compartments. Degenerative changes are also seen in the bilateral ankles. There is irregularity in the distal right fibula. There is normal anatomic alignment of the bones. The visualized portion of the hip and knee joints are unremarkable. There is normal bone mineralization. Vascular calcifications are noted. Bilateral soft tissue swelling is seen most prominent in the ankles. IMPRESSION: No evidence of acute fracture in the pelvis, bilateral femurs, bilateral knees, and bilateral lower legs. Soft tissue swelling is seen most prominently about the bilateral ankles. If there is concern for ankle fracture, dedicated radiographs of the ankle are recommended. Severe degenerative changes are seen in the knees and ankles. ACT 112: Negative or not required by law. Electronically signed by: Alessandro Castro M.D. 05/16/2021 2:08 PM Pelvis X-Ray 05/16/21 11:36 XR femur RT 2V routine, XR tibia fibula RT 2V, XR pelvis 1-2V routine, XR femur LT 2V routine, XR knee LT 3V, XR tibia fibula LT 2V CLINICAL HISTORY: Fall, pain TECHNIQUE: 2 radiographic views of the bilateral femurs were obtained. Single frontal view of the pelvis was obtained. Radiographs of the bilateral knees and tibia/fibulas were obtained. Comparison: None available at the time of this dictation. FINDINGS: Severe degenerative changes are seen in the bilateral knees most prominent in the patellofemoral and lateral compartments. Degenerative changes are also seen in the bilateral ankles. There is irregularity in the distal right fibula. There is normal anatomic alignment of the bones. The visualized portion of the hip and knee joints are unremarkable. There is normal bone mineralization. Vascular calcifications are noted. Bilateral soft tissue swelling is seen most prominent in the ankles. IMPRESSION: No evidence of acute fracture in the pelvis, bilateral femurs, bilateral knees, and bilateral lower legs. Soft tissue swelling is seen most prominently about the bilateral ankles. If there is concern for ankle fracture, dedicated radiographs of the ankle are recommended. Severe degenerative changes are seen in the knees and ankles. ACT 112: Negative or not required by law. Electronically signed by: Alessandro Castro M.D. 05/16/2021 2:08 PM Tibia/Fibula X-Ray 05/16/21 11:36 XR femur RT 2V routine, XR tibia fibula RT 2V, XR pelvis 1-2V routine, XR femur LT 2V routine, XR knee LT 3V, XR tibia fibula LT 2V CLINICAL HISTORY: Fall, pain TECHNIQUE: 2 radiographic views of the bilateral femurs were obtained. Single frontal view of the pelvis was obtained. Radiographs of the bilateral knees and tibia/fibulas were obtained. Comparison: None available at the time of this dictation. FINDINGS: Severe degenerative changes are seen in the bilateral knees most prominent in the patellofemoral and lateral compartments. Degenerative changes are also seen in the bilateral ankles. There is irregularity in the distal right fibula. There is normal anatomic alignment of the bones. The visualized portion of the hip and knee joints are unremarkable. There is normal bone mineralization. Vascular calcifications are noted. Bilateral soft tissue swelling is seen most prominent in the ankles. IMPRESSION: No evidence of acute fracture in the pelvis, bilateral femurs, bilateral knees, and bilateral lower legs. Soft tissue swelling is seen most prominently about the bilateral ankles. If there is concern for ankle fracture, dedicated radiographs of the ankle are recommended. Severe degenerative changes are seen in the knees and ankles. ACT 112: Negative or not required by law. Electronically signed by: Alessandro Castro M.D. 05/16/2021 2:08 PM Hospital Course (1) Hematoma of left lower extremity: (1) Fall, ambulatory dysfunction -H/o multiple falls; fell on steps to house due to weakness/tripped on step -Baseline weakness severe osteoarthritis with limited mobility, requires chair lift to go upstairs, lives alone, uses a walker at baseline -Head CT neg -XR negative for fracture -PT/OT --> recommended SNF -Patient adamant she does not want SNF or acute rehab, wants home health and PT, lives alone at home. It was at large discussed with the patient several times that her current condition puts her at risk for more falls in the future and that her best option would be SNF. Patient still declines and would rather be at home. 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 (2) Hematoma of left lower extremity -s/p fall on the single step to her front door, see above -mild pain present on palpation, movement, hematoma in stages of healing; no signs of compartment syndrome -Can use ice packs treatment (3) Chronic kidney disease, stage IV (severe), stable - appears her baseline is 1.6-1.9 - current creat 1.41 (4) Atrial fibrillation -Permanent, rate controlled on admission -Cont. rate controlling agents metoprolol -cont. anticoagulation with Eliquis (5) CHF -continue lasix every other day (6) Gout -continue allopurinol (7) Depression -continue sertraline, Ativan (2) Frequent falls: (3) Chronic kidney disease, stage IV (severe): (4) Atrial fibrillation: (5) Systolic CHF, chronic: (6) Depression: Total Time Total Time Spent Total Time Spent (In Minutes): 30 Discharge Plan Discharge Items Patient Disposition: Home - Home Health Services Reason For Visit: FALL Discharge Diagnosis: Fall, Ambulatory Dysfunction Activity: Per Instructions section Non-emergency contact: Primary Care Provider Call non-emergency contact if: you have any medication questions and your symptoms worsen Follow-up/Referrals: Patti James MD [Primary Care Provider] - 05/28/21 3:00 pm (You will be seeing Dr. Bosch) Diet: Regular Addtl Attending Provider Instructions: You were admitted to the hospital for a fall. No fractures were present on imaging. You were mainly treated with PT/OT in the hospital. As discussed, we highly recommended you participate in acute rehab or a senior living facility where you could get physical therapy and 24 hour care. You have requested to be discharged home instead with transportation from your daughter. You will be set up with home health and home PT for treatment going forward. Please be extremely careful when ambulating around your house especially going up that single step which you originally fell from. Do not be afraid to ask for help and know that if you feel that you can no longer live on your own, there are resources readily available in the area. A discharge summary will be sent to your primary care physician to ensure continuity of care. Please bring this discharge summary with you to your next office appointment so that your provider can review it at that time. Follow-up appointments: Make a follow-up appointment with your PCP within the next week. It is very important that you follow up with them shortly after discharge from the hospital. We have requested a follow-up appointment with your primary care physician within one week of discharge. Please call their office if you do not hear from them. Keep all your follow-up appointments as already scheduled. If you cannot make an appointment, notify your provider. Medications: Your medication list has been reviewed and reconciled upon discharge to ensure accuracy and continuity of care. An updated list of all your medications is included with your hospital discharge paperwork. Please review this list closely,and make note of any changes. Take your medications as instructed; do not skip a dose of your medicines. Make sure all of your doctors know every medicine you are taking (including [id number] medicines, vitamins,and supplements). Call your primary care provider before taking any new medicines (including [id number] medicines, vitamins, and supplements),because some of these may interact with your current medications, or may make your symptoms worse. Tell your primary care provider if you cannot afford your medications. CONTACT YOUR PRIMARY CARE PROVIDER if you experience any of the following: Fever Left lower leg becomes extremely painful, hot, or red Difficulty following your treatment plan, or difficulty taking medications. CALL 911 OR GO TO THE EMERGENCY DEPARTMENT if you experience any of the following: Sudden, severe abdominal pain or nausea/vomiting Severe chest pain, or chest pain that radiates (moves)to your jaw or arm Sudden, severe shortness of breath or difficulty breathing Thank you for allowing us to participate in your care. Pending Studies at Discharge: No Stand-Alone Forms: My [facility] Medications and DC Order Prescriptions: Continued allopurinol 100 mg tablet 100 mg PO QAM RF: 0 omeprazole 20 mg capsule,delayed release(DR/EC) 20 mg PO QAM RF: 0 Centrum Silver Women 8 mg iron-400 mcg-300 mcg Tablet 1 tab PO QAM RF: 0 PreserVision AREDS-2 [id number] Capsule 1 tab PO BID RF: 0 nitroglycerin [Nitrostat] 0.4 mg Tablet, Sublingual 0.4 mg sublingual DIRECTED PRN (Reason: Chest Pain) RF: 0 metoprolol succinate 100 mg tablet extended release 24 hr 100 mg PO BID RF: 0 sertraline 25 mg tablet 25 mg PO HS RF: 0 Eliquis 2.5 mg tablet 2.5 mg PO BID RF: 0 furosemide 20 mg tablet 20 mg PO Q OTHER DAY RF: 0 lorazepam 0.5 mg tablet 0.5 mg PO HS 3 Days Qty: 3 RF: 0 Discharge Orders: Discharge Order (Routine); Ordered 05/20/21 Ordered By: Getachew Sykes/Other Patient Handouts: Preventing Deep Vein Thrombosis Admission Data Admit Date/Time: 05/18/21 08:44 Attending Provider: Clovis Barrios Admit Provider: [place] Primary Care Provider: Patti James Other Providers: [place] ; [place],[facility], [place] ; [facility] Other Interventions: Discharge Summary Assessment (RN) Last Done: 05/20/21 16:26 Supervising Physician Co-Signing Physician Notes I personally examined the patient and verified all rodriguez points of history and exam, discussed case, and agree with decision making with Dr Dorman wants to go home. no acute complaints vitals noted nad nc at mmm breathing unlabored no accessory muscles good effort skin no rashes no pallor or icterus fall/weakness/leg hematoma - ideally would go to inpt facility for PT/OT and ultimate goal for return home more safely but refuses. for home w dtr today. cautioned about prioritizing safety / using caution to minimize fall risk; risk of fx and forever-loss of independence and/or risk of catastrophic fall and reviewed -- for home cautiously - also outlined if she gets home and does not feel safe, we are open / able to care for her and work on rehab rather than her risking catastrophe at home otherwise as above Resident Activity Tracking Resident Involvement: Resident Care Provided Care Provided: Adult Hospital Medicine
--- NOTE | 2021-05-20 17:09 | Billing Data ---
Date of Service May 20, 2021 Coding Level of Care Code D/C DAY MANAGEMENT <30 MINS
== END 2021-05-20 18:25 | disposition home health service (06) ==
LOC: EDINP 11:17 → ED 11:17 → SUATTDRO 16:35 → 3N 17:40 → SUATTDRO 05-18 08:44

== ENCOUNTER 2021-07-26 00:35 | Observation (INO) ==
--- NOTE | 2021-07-26 00:44 | Emergency Department Note ---
Impression & Plan Fall, Ankle injury ADMIT ED Provider Note HPI: The patient is a very pleasant 85-year-old female with history of atrial fibrillation, on Eliquis, who presents emergency department tonight after a fall. Patient states that she was using her walker to ambulate to the restroom tonight when she lost control of her walker and fell. She complains of right ankle and foot pain on arrival where she does have some mild swelling. Patient denies any hip pain, maintains flexion at the hips bilaterally, denies hitting her head, she is otherwise alert and oriented on arrival, she is in no acute distress on my initial assessment. She arrives via EMS in stable condition. ROS: -MSK: Right foot and ankle pain/swelling status post mechanical fall *10 point review systems was conducted and is otherwise negative unless stated above *Outpatient medications and allergy history reviewed PE: General: Alert, NAD HEENT: Normocephalic, atraumatic Eyes: Extraocular eye movement is intact, no scleral erythema Pulmonary: Clear to auscultation bilaterally, no wheezing Cardio: Regular rate and rhythm GI: Abdomen is soft, nontender : No suprapubic tenderness MSK: Moderate swelling of the right ankle/foot area, range of motion is intact distally in the digits of the right foot, palpable dorsalis pedis pulse in the right foot is appreciated Skin: No evidence of rash Neuro: Alert, no focal deficits 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 CT imaging of the head is unremarkable, x-ray imaging of the right lower extremity including tibia and fibula as well as right ankle and right foot do not show any evidence of obvious fracture per my interpretation. Patient is however having a fairly significant amount of pain with attempted ambulation, she has some ambulatory dysfunction at baseline, she will be placed in an Aircast over concern for a suspected soft tissue injury, lab work shows a slight elevation in creatinine above baseline at 1.62, otherwise her lab work is generally unremarkable, medically I do not feel that she needs to be admitted however she is 85 years old, has ambulatory dysfunction and multiple falls, I feel that she is not safe for discharge back home tonight, I did discuss this with the patient's daughter, Madeline, on the phone, at this time it is thought that the patient would benefit from admission with PT/OT services and possible placement in a rehabilitation facility if her ambulatory dysfunction continues. Patient was advised of the above, she is in agreement for admission, case was discussed with the on-call hospitalist Dr. Harper and the patient was admitted in stable condition. Diagnosis: 1. Ambulatory dysfunction, mechanical fall 2. Right ankle injury 3. Pain with ambulation/difficulty with ambulation 4. 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) Dizziness DJD (degenerative joint disease) Fall GI bleed Gouty arthritis Hemarthrosis Hip hematoma, left Left knee DJD Osteoarthritis Pacemaker Right rib fracture Systolic CHF, chronic Weakness Surgical History H/O: hysterectomy (03/28/12) Social History Smoking Status: Never smoker Hx Alcohol Use: No Hx Substance Use: No Preferred Language: Azeri Communication Ability: Effective 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 Verified 05/16/21 14:33 Antibiotics) cephalexin Allergy Unknown Unknown Verified 05/16/21 14:33 diphenhydramine Allergy Unknown DOES NOT Verified 05/16/21 14:33 REMEMBER potassium chloride Allergy Unknown unknown Verified 05/16/21 14:33 mushroom Allergy Unknown Verified 05/16/21 14:33 Home Meds Home Medications Medication Instructions Recorded Confirmed allopurinol 100 mg tablet 100 mg PO QAM 06/20/19 05/16/21 multivit with 1 tab PO QAM 06/20/19 05/16/21 owxyxddl-kkjy-ZN-lutein 8 mg iron-400 mcg-300 mcg tablet (Centrum Silver Women) nitroglycerin 0.4 mg sublingual 0.4 mg SUBLINGUAL DIRECTED PRN 06/20/19 05/16/21 tablet (Nitrostat) omeprazole 20 mg capsule,delayed 20 mg PO QAM 06/20/19 05/16/21 release vit C 250 mg-vit E 90 mg-zinc 40 1 tab PO BID 06/20/19 05/16/21 mg-copper 1 fu-poiubl-txxvgn capsule (PreserVision AREDS-2) apixaban 2.5 mg tablet (Eliquis) 2.5 mg PO BID 10/06/19 05/16/21 furosemide 20 mg tablet 20 mg PO Q OTHER DAY 10/06/19 05/16/21 metoprolol succinate 100 mg 100 mg PO BID 10/06/19 05/16/21 tablet,extended release 24 hr sertraline 25 mg tablet 25 mg PO HS 10/06/19 05/16/21 Previous Rx's Medication Instructions Recorded lorazepam 0.5 mg tablet 0.5 mg PO HS 3 Days #3 tab 10/10/19 Results & Data (ED) Vital Signs Vital Signs - 24 hr 07/26/21 00:40 07/26/21 01:05 07/26/21 02:31 Temperature 36.6 C Temperature Source Oral Pulse Rate 66 68 Pulse Rate [Apical] 67 66 Pulse Rhythm Regular Regular Pulse Rhythm [Apical] Regular Regular Pulse Strength Normal Pulse Strength [Apical] Normal Normal Respiratory Rate 18 18 18 Respiratory Effort / Characteristics Non-Labored Spontaneous Non-Labored Spontaneous Respiratory Depth Normal Normal Respiratory Pattern Regular Blood Pressure 193/89 H Blood Pressure [Left Arm] 193/89 H 182/73 H Blood Pressure Mean 123 Blood Pressure Mean [Left Arm] 123 109 Blood Pressure Position Lying Blood Pressure Position [Left Arm] Lying Lying Pulse Oximetry 99 98 96 Oxygen Delivery Method Room Air Room Air Room Air Sepsis Recent Fever Within 48 Hours No Sepsis New/Unexplained Change in Mental Status No Sepsis Action Taken by Nursing No Action Required Laboratory Data Result diagrams: 07/26/21 01:16 07/26/21 01:16 Lab Results 07/26/21 07/26/2107/26/22 Range/Units 01:16 01:16 01:16 WBC 6.61 (4.8-10.8) K/uL RBC 4.04 L (4.2-5.4) M/uL Hgb 12.7 (12.0-16.0) g/dL Hct 37.5 (37-47) % MCV 92.8 (80-100) fL MCH 31.4 (25-34) pg MCHC 33.9 (32-36) g/dL RDW Std Deviation 48.5 H (36.4-46.3) fL RDW Coeff of Thee 14.2 (11.5-14.5) % Plt Count 242 (130-400) K/uL MPV 10.4 (7.4-10.4) fL Immature Gran % (Auto) 0.5 % Neut % (Auto) 63.6 % Lymph % (Auto) 14.2 % [place] % (Auto) 19.1 % Eos % (Auto) 2.3 % Baso % (Auto) 0.3 % Neut # (Auto) 4.21 (1.4-6.5) K/uL Lymph # (Auto) 0.94 L (1.2-3.4) K/uL [place] # (Auto) 1.26 H (0.11-0.59) K/uL Eos # (Auto) 0.15 (0-0.5) K/uL Baso # (Auto) 0.02 (0-0.2) K/uL Immature Gran # (Auto) 0.03 H (0.00-0.02) K/uL PT 11.1 (9.0-12.0) Seconds INR 1.0 (0.9-1.1) Sodium 135 L (136-145) mmol/L Potassium 4.7 (3.5-5.1) mmol/L Chloride 99 (98-107) mmol/L Carbon Dioxide 30 (21-32) mmol/L Anion Gap 6 (3-11) BUN 52 H (6-23) mg/dl Creatinine 1.62 H (0.6-1.2) mg/dl Est Cr Clr Drug Dosing 19.3 ml/min Est GFR ( Amer) 32.7 ml/min Est GFR (Non-Af Amer) 28.2 ml/min BUN/Creatinine Ratio 32.1 H (10-20) Glucose 80 (70-99(Fasting)) mg/dl Calcium 9.3 (8.5-10.1) mg/dl Total Bilirubin 0.5 (0.2-1.0) mg/dl AST 23 (13-39) U/L ALT 10 (7-52) U/L Alkaline Phosphatase 101 (34-104) U/L Total Protein 7.8 (6.0-8.3) gm/dl Albumin 3.9 (3.4-5.0) gm/dl Globulin 3.9 (2.5-4.0) gm/dl Albumin/Globulin Ratio 1.0 (0.9-2) Administered Medications Discontinued Medications Acetaminophen (Acetaminophen 500 Mg Tab) 1,000 mg PO NOW STA Stop: 07/26/21 01:34 Last Admin: 07/26/21 02:04 Dose: 1,000 mg Documented by: [id number] Discharge Plan Visit Data Chief Complaint: Fall Stated Complaint: Fall ED Provider: Max Quintanilla Discharge Problem: Fall, Ankle injury Forms Stand Alone Forms: [facility] Prescriptions Prescriptions: No Action allopurinol 100 mg tablet 100 mg PO QAM RF: 0 omeprazole 20 mg capsule,delayed release(DR/EC) 20 mg PO QAM RF: 0 Centrum Silver Women 8 mg iron-400 mcg-300 mcg Tablet 1 tab PO QAM RF: 0 PreserVision AREDS-2 [phone] mr-wudr-bk-mg Capsule 1 tab PO BID RF: 0 nitroglycerin [Nitrostat] 0.4 mg Tablet, Sublingual 0.4 mg sublingual DIRECTED PRN (Reason: Chest Pain) RF: 0 metoprolol succinate 100 mg tablet extended release 24 hr 100 mg PO BID RF: 0 sertraline 25 mg tablet 25 mg PO HS RF: 0 Eliquis 2.5 mg tablet 2.5 mg PO BID RF: 0 furosemide 20 mg tablet 20 mg PO Q OTHER DAY RF: 0 lorazepam 0.5 mg tablet 0.5 mg PO HS 3 Days Qty: 3 RF: 0 Referrals Referrals: Patti James MD [Primary Care Provider] - Discharge Problem: Fall Qualifiers: Encounter type: initial encounter Qualified Code(s): W19.XXXA - Unspecified fall, initial encounter Ankle injury Qualifiers: Encounter type: initial encounter Laterality: right Qualified Code(s): S99.911A - Unspecified injury of right ankle, initial encounter
[2021-07-26 01:25] LABS: Basophils # (auto) 0.02 K/uL (0-0.2); Basophils % (auto) 0.3 %; Eosinophils # (auto) 0.15 K/uL (0-0.5); Eosinophils % (auto) 2.3 %; Hematocrit (blood only) 37.5 % (37-47); Hemoglobin 12.7 g/dL (12.0-16.0); Immature Granulocytes # (auto) 0.03 K/uL (0.00-0.02); Immature Granulocytes % (auto) 0.5 %; Lymphocytes # (auto) 0.94 K/uL (1.2-3.4); Lymphocytes % (auto) 14.2 %; Mean Corpuscular Hemoglobin 31.4 pg (25-34); Mean Corpuscular Hgb Conc 33.9 g/dL (32-36); Mean Corpuscular Volume 92.8 fL (80-100); Mean Platelet Volume 10.4 fL (7.4-10.4); Monocytes # (auto) 1.26 K/uL (0.11-0.59); Monocytes % (auto) 19.1 %; Neutrophils # (auto) 4.21 K/uL (1.4-6.5); Neutrophils % (auto) 63.6 %; Platelet Count 242 K/uL (130-400); RDW Coefficient of Variation 14.2 % (11.5-14.5); RDW Standard Deviation 48.5 fL (36.4-46.3); Red Blood Count 4.04 M/uL (4.2-5.4); White Blood Count 6.61 K/uL (4.8-10.8)
[2021-07-26] MEDS ORDERED: ACETAMINOPHEN 500 MG TAB PO STA (01:33)
[2021-07-26 01:50] LABS: Albumin Level 3.9 gm/dl (3.4-5.0); BUN Creatinine Ratio 32.1 (10-20); Bilirubin,Total 0.5 mg/dl (0.2-1.0); Calcium 9.3 mg/dl (8.5-10.1); Creatinine Clr Calc Pharmacy 19.3 ml/min; Est GFR (African American) 32.7 ml/min; Est GFR (Non-African American) 28.2 ml/min; Globulin 3.9 gm/dl (2.5-4.0); Potassium 4.7 mmol/L (3.5-5.1); Total Protein 7.8 gm/dl (6.0-8.3)
[2021-07-26 01:54] LABS: Prothrombin Time 11.1 Seconds (9.0-12.0)
[2021-07-26] MEDS ORDERED: SODIUM CHLORIDE 0.9% 1000ML 250 ML IV ONE (03:01)
--- NOTE | 2021-07-26 03:08 | History & Physical Report ---
Date of Service July 26, 2021 Assessment & Plan (1) Fall: Plan: 85yo female presenting after ground level fall resulting in left ankle injury. No obvious fracture on imaging. Pain well controlled after PO Tylenol. Patient denies head/neck trauma or LOC, fully recalls the event. No CP/Palpitations/Syncope. She lives alone and frequently falls. -Observation to medical -PT/OT evaluation -Maintain ankle splint for comfort -Tylenol as needed for pain -Will hold PM Ativan - may contribute to falls (2) Atrial fibrillation: Plan: Rate controlled. Patient anticoagulated on Eliquis 2.5mg po BID -Continue Eliquis -Continue Metoprolol 100mg po BID (3) Chronic kidney disease, stage IV (severe): Plan: BUN and Cr near baseline -Avoid nephrotoxic agents -LR at 75mL/hr x 1 liter (4) Depression: Plan: Stable. Well controlled with medications -Continue Sertraline 25mg po qHS Plan: F/E/N - LR at 75mL/hr x 1 liter, electrolytes WNL, regular diet with aspiration precautions as needed Ppx - On Eliquis for AF - will continue Code - DNR/DNI per discussion with patient Dispo - Observation to medical History of Present Illness Chief Complaint: fall, right ankle injury Primary Care Provider: Patti James MD Mishel Truong is an 85yo female with history of AF on Eliquis, CKD-IV, CHF presenting from home after a fall. Patient was recently hospitalized following a fall from 05/18/21 - 05/20/21. This evening she got up to use the bathroom. She ambulates with her walker. She tripped and the walker "went flying". Patient was unable to get up so she scooted to her bed and called 911. She denies head or neck trauma, loss of c onsciousness, she has full recollection of the entire event. She denies chest pain, palpitations, cough, SOB, abdominal pain, nausea, vomiting, diarrhea, constipation. She does get dizzy occasionally. Otherwise, no complaints. Pain in the ankle is well controlled. In the ER she is afebrile, Hypertensive otherwise HD stable. No respiratory complaints. Imaging is NEGATIVE for acute fracture. Labs are largely unremarkable and at baseline values. Patient lives alone. Has a daughter that lives locally. ER Course: Tylenol Allergies Allergy/AdvReac Type Severity Reaction Status Date / Time Iodinated Contrast Media Allergy Severe Difficulty Verified 05/16/21 14:33 Breathing, Severe Hives Sulfa (Sulfonamide Allergy Mild . Verified 05/16/21 14:33 Antibiotics) cephalexin Allergy Unknown Unknown Verified 05/16/21 14:33 diphenhydramine Allergy Unknown DOES NOT Verified 05/16/21 14:33 REMEMBER potassium chloride Allergy Unknown unknown Verified 05/16/21 14:33 mushroom Allergy Unknown Verified 05/16/21 14:33 Home Medications Medication Instructions Recorded Confirmed Type allopurinol 100 mg tablet 100 mg PO QAM 06/20/19 07/26/21 History multivit with 1 tab PO QAM 06/20/19 07/26/21 History rfbiyepi-asbc-VU-lutein 8 mg iron-400 mcg-300 mcg tablet (Centrum Silver Women) nitroglycerin 0.4 mg sublingual 0.4 mg SUBLINGUAL DIRECTED PRN 06/20/19 07/26/21 History tablet (Nitrostat) omeprazole 20 mg capsule,delayed 20 mg PO QAM 06/20/19 07/26/21 History release vit C 250 mg-vit E 90 mg-zinc 40 1 tab PO BID 06/20/19 07/26/21 History mg-copper 1 cc-pyhbtc-jbtcaf capsule (PreserVision AREDS-2) apixaban 2.5 mg tablet (Eliquis) 2.5 mg PO BID 10/06/19 07/26/21 History furosemide 20 mg tablet 20 mg PO Q OTHER DAY 10/06/19 07/26/21 History metoprolol succinate 100 mg 100 mg PO BID 10/06/19 07/26/21 History tablet,extended release 24 hr sertraline 25 mg tablet 25 mg PO HS 10/06/19 07/26/21 History lorazepam 0.5 mg tablet 0.5 mg PO HS 3 Days #3 tab 10/10/19 07/26/21 Rx 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) Dizziness DJD (degenerative joint disease) Fall GI bleed Gouty arthritis Hemarthrosis Hip hematoma, left Left knee DJD Osteoarthritis Pacemaker Right rib fracture Systolic CHF, chronic Weakness Surgical History H/O: hysterectomy (03/28/12) Social History Smoking Status: Never smoker Hx Alcohol Use: No Hx Substance Use: No Preferred Language: Yakut Communication Ability: Effective Donation Specialist Required: No Beliefs That Will Affect Care: None marital status: / Current Living Situation: Alone Feels Safe at Home: Yes Assistive Devices: Glasses and Walker Review of Systems Review of Systems: All systems reviewed & are unremarkable except as noted in HPI & below Physical Exam Physical Exam: General: elderly female patient resting comfortably, NAD, non- toxic in appearance, AA&O x 4 Skin: warm, dry, small lesion on left holland with a small amount of purulent drainage HEENT: NC/AT, PERRL, EOMI, anicteric sclera, conjunctiva without injection, external ear normal to inspection and nontender, nares patent, moist mucus membranes, dentition intact, no oropharyngeal lesions, neck supple, trachea midline, no LAD, no thyromegaly, no JVD Heart: +S1/S2, irregularly irregular, 3/6 JAMAAL across precordium Lungs: equal air entry bilaterally, no rales/rhonchi/wheezes Abd: +BS, soft, NT/ND, no masses/organomegaly/ascites, +colostomy in place Ext: RLE in immobilizer, LLE with wound as above Neuro: nonfocal, patient AA&O x 4, speech intact, no facial droop, moving all extremities on command with equal strength 5/5 Results & Data Results & Data (MN) Vital Signs (Past 12 Hours) Vital Signs Temp Pulse Pulse Resp BP BP Pulse Ox 07/26/21 02:31 66 18 182/73 H 96 07/26/21 01:05 68 18 98 07/26/21 00:40 36.6 C 66 67 18 193/89 H 193/89 H 99 Laboratory Results Laboratory Results WBC 6.61 K/uL (4.8-10.8) 07/26/21 01:16 RBC 4.04 M/uL (4.2-5.4) L 04/09/22 01:16 Hgb 12.7 g/dL (12.0-16.0) 07/26/21 01:16 Hct 37.5 % (37-47) 07/26/21 01:16 MCV 92.8 fL (80-100) 07/26/21 01:16 MCH 31.4 pg (25-34) 07/26/21 01:16 MCHC 33.9 g/dL (32-36) 07/26/21 01:16 RDW Std Deviation 48.5 fL (36.4-46.3) H 07/26/21 01:16 RDW Coeff of Thee 14.2 % (11.5-14.5) 07/26/21 01:16 Plt Count 242 K/uL (130-400) 07/26/21 01:16 MPV 10.4 fL (7.4-10.4) 07/26/21 01:16 Immature Gran % (Auto) 0.5 % 07/26/21 01:16 Neut % (Auto) 63.6 % 07/26/21 01:16 Lymph % (Auto) 14.2 % 07/26/21 01:16 [place] % (Auto) 19.1 % 07/26/21 01:16 Eos % (Auto) 2.3 % 07/26/21 01:16 Baso % (Auto) 0.3 % 07/26/21 01:16 Neut # (Auto) 4.21 K/uL (1.4-6.5) 07/26/21 01:16 Lymph # (Auto) 0.94 K/uL (1.2-3.4) L 07/26/21 01:16 [place] # (Auto) 1.26 K/uL (0.11-0.59) H 07/26/21 01:16 Eos # (Auto) 0.15 K/uL (0-0.5) 07/26/21 01:16 Baso # (Auto) 0.02 K/uL (0-0.2) 07/26/21 01:16 Immature Gran # (Auto) 0.03 K/uL (0.00-0.02) H 07/26/21 01:16 PT 11.1 Seconds (9.0-12.0) 07/26/21 01:16 INR 1.0 (0.9-1.1) 07/26/21 01:16 Sodium 135 mmol/L (136-145) L 07/26/21 01:16 Potassium 4.7 mmol/L (3.5-5.1) 07/26/21 01:16 Chloride 99 mmol/L (98-107) 07/26/21 01:16 Carbon Dioxide 30 mmol/L (21-32) 07/26/21 01:16 Anion Gap 6 (3-11) 07/26/21 01:16 BUN 52 mg/dl (6-23) H 07/26/21 01:16 Creatinine 1.62 mg/dl (0.6-1.2) H 07/26/21 01:16 Est Cr Clr Drug Dosing 19.3 ml/min 07/26/21 01:16 Est GFR ( Amer) 32.7 ml/min 07/26/21 01:16 Est GFR (Non-Af Amer) 28.2 ml/min 07/26/21 01:16 BUN/Creatinine Ratio 32.1 (10-20) H 07/26/21 01:16 Glucose 80 mg/dl (70-99(Fasting)) 07/26/21 01:16 Calcium 9.3 mg/dl (8.5-10.1) 07/26/21 01:16 Total Bilirubin 0.5 mg/dl (0.2-1.0) 07/26/21 01:16 AST 23 U/L (13-39) 07/26/21 01:16 ALT 10 U/L (7-52) 07/26/21 01:16 Alkaline Phosphatase 101 U/L (34-104) 07/26/21 01:16 Total Protein 7.8 gm/dl (6.0-8.3) 07/26/21 01:16 Albumin 3.9 gm/dl (3.4-5.0) 07/26/21 01:16 Globulin 3.9 gm/dl (2.5-4.0) 07/26/21 01:16 Albumin/Globulin Ratio 1.0 (0.9-2) 07/26/21 01:16 Diagnostic Findings Per STAT rad: CT Head - no acute intracranial abnormality Right foot x-ray/ Right Tib/fib x-ray/Right ankle - by my interpretation, no acute fractures Code Status & VTE Plan VTE Prophylaxis Plan VTE Prophylaxis will be ordered: Yes PG Care Time/CCT Total # of Minutes Spent Total Time Spent with Patient: Total time spent is greater than 50% in coordination of care (as documented) at patient's floor/unit and/or counseling patient: Coding Level of Care Code INT OBSERVATION CARE 50M LVL 2 Diagnoses Fall W19.XXXA Encounter type: initial encounter Atrial fibrillation I48.91 Atrial fibrillation type: unspecified Chronic kidney disease, stage IV (severe) N18.4 Depression F32.9 Depression Type: unspecified (1) Atrial fibrillation Atrial fibrillation type: unspecified Qualified Code(s): I48.91 - Unspecified atrial fibrillation (2) Depression Depression Type: unspecified Qualified Code(s): F32.9 - Major depressive disorder, single episode, unspecified (3) Fall Encounter type: initial encounter Qualified Code(s): W19.XXXA - Unspecified fall, initial encounter
[2021-07-26] MEDS ORDERED: LACTATED RINGER'S 1,000 ML IV SCH (06:40)
[2021-07-26] MEDS ORDERED: DOCUSATE SODIUM 100 MG CAP PO PRN (06:40)
[2021-07-26] MEDS ORDERED: ONDANSETRON INJ 2 MG/ML 2 ML VIAL IV PRN (06:40)
--- NOTE | 2021-07-26 07:05 | XRay Report ---
XR ankle RT min 3V routine, XR foot RT min 3V routine, XR tibia fibula RT 2V CLINICAL HISTORY: Fall. Right lower leg, ankle, and foot pain. COMPARISON STUDY: Right tibia 05/16/2021. FINDINGS: Old, healed distal right fibular fracture, unchanged. No acute fracture or dislocation with in the right tibia, fibula, ankle, or right foot. There is soft tissue swelling within the ankle. Chantel ntar and posterior calcaneal spurs are noted. Vascular calcifications are present. Severe osteoarthri tis within the lateral right knee. The bones are osteopenic. Soft tissue swelling within the dorsum o f the foot. Questionable slight offset at the second and third tarsometatarsal joints. IMPRESSION: 1. Questionable slight offset at the second and third tarsometatarsal joints. This could be chronic. If the patient is complaining of mid foot pain then consider repeat radiograph to evaluate for the pr esence of a Lisfranc injury. 2. No acute fractures within the right lower leg or right ankle. ACT 112: Negative or not required by law. Electronically signed by: Klaus Moreno M.D. 07/26/2021 7:03 AM
--- NOTE | 2021-07-26 07:33 | CT Scan Report ---
HEAD CT NONCONTRAST CT DOSE: 537.48 mGy.cm HISTORY: Fall. Trauma TECHNIQUE: Multiaxial CT images of the head were performed without the use of intravenous contrast. A utomated exposure control was utilized for this study. A dose lowering technique was utilized adheri ng to the principles of ALARA. Comparison: Head CT 05/16/2021. Findings: The paranasal sinuses and mastoid air cells are clear. The calvarium and skull base are int act. There is no mass, hematoma, midline shift, acute infarct. White matter hypodensity is nonspecifi c but suggestive of microvascular ischemic change. The ventricles and sulci demonstrate mild age-rela checo involutional changes. Impression: No acute intracranial abnormality. ACT 112: Negative or not required by law. Electronically signed by: Klaus Moreno M.D. 07/26/2021 7:31 AM
[2021-07-26] MEDS: FUROSEMIDE 20 MG TAB PO SCH (07:42)
[2021-07-26] MEDS: allopurinoL 100 MG TAB PO SCH (07:42)
[2021-07-26] MEDS: METOPROLOL SUCC 50MG EXT REL TAB PO SCH ×2 (07:42→21:13)
[2021-07-26] MEDS: PANTOprazole 40 MG TAB PO SCH (07:43)
[2021-07-26] MEDS ORDERED: APIXABAN 2.5 MG TAB PO SCH (09:00)
--- NOTE | 2021-07-26 11:27 | CT Scan Report ---
LEFT TIBIA/FIBULA CT CT DOSE: 362.60 mGy.cm HISTORY: Left lower leg wound - ? osteo TECHNIQUE: Multiaxial CT images of the left lower leg were performed and reformatted in the sagittal and coronal plane without the use of contrast. A dose lowering technique was utilized adhering to e principles of ALARA. COMPARISON: Left tibia/fibula 05/16/2021. FINDINGS: No acute fracture or dislocation within the left tibia or fibula. Small left knee effusion. Degenerative changes again noted within the left knee. No cortical destruction or erosions identifie d within the left lower leg to suggest an osteomyelitis. Vascular calcifications are present. There i s mild skin thickening within the lower leg and multiple superficial varicosities. Mild pretibial sub cutaneous fat stranding proximally. There is a focal skin ulceration within the anterolateral mid low er leg measuring approximately 1.8 cm. No underlying fluid collections to suggest an abscess. No radi opaque foreign bodies. IMPRESSION: 1. A 1.8 cm focal skin ulceration within the anterolateral mid left lower leg. No underlying abscess. 2. No evidence for osteomyelitis within the left lower leg. ACT 112: Negative or not required by law. Electronically signed by: Klaus Moreno M.D. 07/26/2021 11:26 AM
--- NOTE | 2021-07-26 13:17 | Electrocardiogram Report ---
Test Reason : Blood Pressure : / mmHG Vent. Rate : 067 BPM Atrial Rate : 067 BPM P-R Int : 266 ms QRS Dur : 134 ms QT Int : 430 ms P-R-T Axes : 077 -60 016 degrees QTc Int : 454 ms Sinus rhythm with 1st degree A-V block Right bundle branch block Left anterior fascicular block Bifascicular block Voltage criteria for left ventricular hypertrophy Abnormal ECG When compared with ECG of 16-MAY-2021 11:55, Premature atrial complexes are no longer Present Confirmed by Andrew Kee ([id number]) on 07/26/2021 1:17:26 PM Referred By: REFERRED SELF Confirmed By:Andrew Kee
[2021-07-26 13:21] LABS: Appearance Urine Clear (Clear); Bacteria Urine Automated Negative (Negative); Bilirubin Urine Negative (Negative); Blood Urine Negative (Negative); Color Urine Yellow; Glucose Urine UA Negative (Negative); Ketones Urine Negative (Negative); Leukocyte Esterase Urine Trace (Negative); Nitrite Urine Negative (Negative); Protein Urine Negative (Negative); RBC Urine Automated 0-4 /hpf (0-4); Specific Gravity Urine 1.012 (1.000-1.030); Urobilinogen Urine Negative (Negative); pH Urine 5.5 (4.5-7.5)
[2021-07-26] MEDS: ACETAMINOPHEN 325 MG TAB PO PRN ×2 (14:10→21:17)
--- NOTE | 2021-07-26 15:05 | Hospitalist Progress Note ---
Date of Service July 26, 2021 Assessment & Plan (1) Fall: Plan: 85yo female presenting after ground level fall and right foot pain -In talking with patient, she has had frequent falls. She lives alone in a two- story home. Is independent. Utilizes a wheeled walker -Sounds as if she has a history of orthostatic hypotension as she states she supposed to "stand after sitting and let her blood pressure can drop before walking" -Did not do this yesterday and attributes this to her fall -Patient reports intermittent dizziness (described as lightheadedness)-- see below (2) Near syncope: Plan: -Exact etiology unclear -Moved to patient monitor -Obtain pacemaker interrogation -Obtain urinalysis -Obtain carotid Dopplers -Obtain echocardiogram -Obtain orthostatic vital signs -Described as lightheaded feeling. Not vertigo. Continue to follow clinically (3) Right foot pain: Plan: -Right foot pain s/p fall -Radiographic concern for offset of the second and third metatarsalquestionable Lisfranc fracture -Nonweightbearing status to right lower extremity -Consult orthopedicsappreciate recommendations (4) Venous stasis ulcer: Plan: -Some drainagequestion mucopurulent drainage versus granulation sloughing -No superimposed or surrounding cellulitis. Patient afebrile with a normal white blood cell count -Hold off on IV/oral antibiotics -Wound culture obtained -Consult wound nurseappreciate recommendations -CT ordered given undermining and tunneling when obtaining culture data. No evidence of abscess or osteomyelitis seen (5) Atrial fibrillation: Plan: Currently in a normal sinus rhythm with controlled ventricular rate -Continue metoprolol as prior to hospitalization -Hold Eliquis. Fractures unlikely surgical but hold for now until seen by orthopedics. In addition, risk of hematoma/bleeding. Last, would like recommendations from physical therapy given frequent falls, advanced age and risk of intracranial hemorrhage (6) Chronic kidney disease, stage IV (severe): Plan: BUN and Cr near baseline -Avoid nephrotoxic agents -LR at 75mL/hr x 1 liter (7) Depression: Plan: Stable. Well controlled with medications -Continue Sertraline 25mg po qHS Plan: d/w Dr. Driver Admission and Anticipated Discharge Date Admission Date: July 26, 2021 Subjective Patient seen on daily rounds today. Hospitalized in the overnight hours with r ight foot pain after a fall. Is a good historian. Reports falling while walking to the bathroom yesterday. She has been feeling dizzy over the past week. Seems to come and go. Describes it as a lightheaded feeling rather than spinning. Claims that she is to stand slowly and pause before walking but did not do this yesterday. She started walking to the bathroom as she had to urinate and sustained a ground-level fall. She did not trip over anything or lose consciousness but reports she was dizzy and her "walker came out from under her" causing her to fall. She was unable to stand but scooted herself over towards her bed and grabbed her phone to call EMS services. She is now complaining of right foot pain and an inability to bear weight. Work-up in the ED showed questionable offset of the second and third metatarsal concerning for a Lisfranc's fracture. Patient denies fevers, chills, any change in her vision, headache, vertigo, sinus congestion/pain, chest pain, respiratory symptoms, chest pain, shortness of breath, abdominal pain, nausea or vomiting. Denies dysuria, hematuria or frequency. She lives alone in a two-story home and is fairly independent. She takes her medications independently. Her daughter fills her pill funeral planner once a week and she independently takes from the pill funeral planner 3 times daily. She denies missing any of her medications. Review of Systems Review of Systems: All systems reviewed and are unremarkable except as noted in HPI and below Denies fevers, chills, headache, nasal congestion, sore throat, cough, chest pain, shortness of breath, palpitations, orthopnea, PND, abdominal pain, nausea, vomiting, diarrhea, constipation, dysuria, hematuria, frequency, back pain, joint pain or swelling, easy bruising or bleeding, Physical Exam Physical Exam: General: Resting comfortably in her hospital bed. Pleasant. NAD. HEENT: Head is AT/NC. Buccal mucosa is moist and pink Neck: No JVD. Negative hepatojugular reflex Cardiac: currently in a NSR with 2/6 JAMAAL Lungs: CTA without W/R/R Abdomen: Normoactive X4. Soft and nontender in all quadrants. Extremities: Bilateral lower extremities are very edematous but more so adiposity than true pitting edema. Vascular changes noted bilaterally. Patient has edema over the top of her right foot with exquisite tenderness. Pulses are palpable. Capillary refill +2. Her left anterior holland has a dime size open wound with some mucopurulent drainage/sloughing but no periwound erythema. Chronic vascular changes noted but no superimposed cellulitis apparent Neuro: A&O X4. Cranial nerves II through XII are grossly intact. No focal neuro deficits Skin: No obvious skin lesions or rashes Psych: Appropriate affect. Pleasant and cooperative Results & Data Results & Data ([facility]) Vital Signs (Past 12 Hours) Vital Signs Temp Pulse Resp BP BP Pulse Ox 07/26/21 11:33 36.5 C 60 18 124/64 97 07/26/21 09:59 115/62 07/26/21 07:51 36.4 C L 70 16 211/75 H 98 07/26/21 06:00 36.9 C 62 16 184/77 H 97 07/26/21 04:00 36.8 C 60 16 182/73 H 96 Laboratory Results 07/26/21 01:16 07/26/21 01:16 PG Care Time/CCT Total # of Minutes Spent Total Time Spent with Patient: Total time spent is greater than 50% in coordination of care (as documented) at patient's floor/unit and/or counseling patient: Coding Level of Care Code None Diagnoses Fall W19.XXXA Encounter type: initial encounter Atrial fibrillation I48.91 Atrial fibrillation type: unspecified Chronic kidney disease, stage IV (severe) N18.4 Depression F32.9 Depression Type: unspecified Near syncope R55 Venous stasis ulcer I83.009; L97.909 Right foot pain M79.671 (1) Fall Encounter type: initial encounter Qualified Code(s): W19.XXXA - Unspecified fall, initial encounter (2) Atrial fibrillation Atrial fibrillation type: unspecified Qualified Code(s): I48.91 - Unspecified atrial fibrillation (3) Depression Depression Type: unspecified Qualified Code(s): F32.9 - Major depressive disorder, single episode, unspecified
--- NOTE | 2021-07-26 16:33 | XCELERA ---
[id number]
--- NOTE | 2021-07-26 18:39 | Orthopedic Consultation ---
Date of Consultation July 26, 2021 Assessment & Plan (1) Lisfranc fracture: I discussed with the patient that she does appear to have a Lisfranc injury with of her foot and likely fracture. She has hematoma in her foot and ankle secondary to the injury as well as her being on anticoagulation with Eliquis. Treatment options were discussed. Because of her age medical comorbidities and the minimal amount of displacement nonsurgical treatment is recommended. Patient agrees with this stating that she does not want surgery anyways. She will need to be nonweightbearing on this right lower extremity for 6 weeks. Because of her recent left ankle injury which appears to be a left ankle sprain I do not think she is going to be able to tolerate anything other than a wheelchair. I do think she can bear weight on her left lower extremity for transfers. Because of her social situation of living alone I strongly recommend she go to a [facility] facility for at least 6 to 8 weeks because I do not think it safe for her to return to her previous living situation of being at home alone in a wheelchair. In terms of immobilization at present I recommend we keep her bed rest and elevate her foot. Because of her blood blister I do not want to put her into a cast right away. We may want to consider a cam boot instead. We will see how her swelling evolves over the next couple days with elevation, ice, and bedrest. She can resume her Eliquis from an orthopedic standpoint for DVT prophylaxis so long as her foot and ankle hematoma are not enlarging. We will plan on placing her into a cast or a walking boot on Wednesday or Wednesday of this week. Feel free to contact orthopedics with any questions. History of Present Illness Reason for Consultation: Right foot and ankle pain Attending Physician: Errol Driver MD History of Present Illness Mishel Truong is an 85yo female with history of AF on Eliquis, CKD-IV, CHF presenting from home after a fall. Patient was recently hospitalized following a fall from 05/18/21 - 05/20/21. This evening she got up to use the bathroom. She ambulates with her walker. She tripped and the walker "went flying". Patient was unable to get up so she scooted to her bed and called 911. She denies head or neck trauma, loss of consciousness, she has full recollection of the entire event. She denies chest pain, palpitations, cough, SOB, abdominal pain, nausea, vomiting, diarrhea, constipation. She does get dizzy occasionally. Otherwise, no complaints. Pain in the ankle is well controlled with Tylenol. Orthopedics was consulted given x-ray findings concerning for possible Lisfranc fracture of her right foot. Patient was seen and examined on the floor. She currently has an ankle splint in place. She says she is relatively comfortable at rest. She reports that her left ankle is still bothering her from her previous fall that resulted in her h ospitalization from May 18 to May 20. However she was able to walk on the left ankle. She has not been able to bear any weight on the right lower extremity. Denies numbness and tingling. Patient points to her midfoot is where she feels the pain. Allergies Allergy/AdvReac Type Severity Reaction Status Date / Time Iodinated Contrast Media Allergy Severe Difficulty Verified 05/16/21 14:33 Breathing, Severe Hives Sulfa (Sulfonamide Allergy Mild . Verified 05/16/21 14:33 Antibiotics) cephalexin Allergy Unknown Unknown Verified 05/16/21 14:33 diphenhydramine Allergy Unknown DOES NOT Verified 05/16/21 14:33 REMEMBER potassium chloride Allergy Unknown unknown Verified 05/16/21 14:33 mushroom Allergy Unknown Verified 05/16/21 14:33 Home Medications Medication Instructions Recorded Confirmed Type allopurinol 100 mg tablet 100 mg PO QAM 06/20/19 07/26/21 History multivit with 1 tab PO QAM 06/20/19 07/26/21 History eqvfdnqi-nfhh-KB-lutein 8 mg iron-400 mcg-300 mcg tablet (Centrum [place] [facility]) nitroglycerin 0.4 mg sublingual 0.4 mg SUBLINGUAL DIRECTED PRN 06/20/19 07/26/21 History tablet (Nitrostat) omeprazole 20 mg capsule,delayed 20 mg PO QAM 06/20/19 07/26/21 History release vit C 250 mg-vit E 90 mg-zinc 40 1 tab PO BID 06/20/19 07/26/21 History mg-copper 1 tv-msmibq-upaoen capsule (PreserVision AREDS-2) apixaban 2.5 mg tablet (Eliquis) 2.5 mg PO BID 10/06/19 07/26/21 History furosemide 20 mg tablet 20 mg PO Q OTHER DAY 10/06/19 07/26/21 History metoprolol succinate 100 mg 100 mg PO BID 10/06/19 07/26/21 History tablet,extended release 24 hr sertraline 25 mg tablet 25 mg PO HS 10/06/19 07/26/21 History lorazepam 0.5 mg tablet 0.5 mg PO HS 3 Days #3 tab 10/10/19 07/26/21 Rx Patient History Medical History Abnormal stress test Ambulatory dysfunction Atrial fibrillation Atrial fibrillation (04/24/13) Bilateral leg edema Chronic kidney disease, stage IV (severe) Closed fracture of right distal fibula Depression Disc displacement, 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) Dizziness DJD (degenerative joint disease) Fall GI bleed Gouty arthritis Hemarthrosis Hip hematoma, left Left knee DJD Osteoarthritis Pacemaker Right rib fracture Systolic CHF, chronic Weakness Surgical History H/O: hysterectomy (03/28/12) Social History Smoking Status: Never smoker Hx Alcohol Use: No Hx Substance Use: No Preferred Language: [place] Communication Ability: Effective Velvet Steamer Required: No Beliefs That Will Affect Care: None marital status: / Current Living Situation: Alone Feels Safe at Home: Yes Assistive Devices: Walker Physical Exam Physical Exam: Pleasant female, resting comfortably in bed in no acute distress. Appropriately conversant and answers all questions. Right foot and ankle exam reveals the patient have significant swelling in her bilateral lower extremities. She has significant bruising noted over the lateral aspect of the right ankle approximately 7 cm x 10 cm. She also has a blood blister on the dorsal aspect of her foot oval-shaped approximately 4 x 2- 1/2 cm overlying her second through fourth metatarsals. The skin is not broken however it is very thin overlying this blood blister. No abrasions or lacerations to the skin. She is able to wiggle her toes. She fires ankle dorsi and plantar flexors although with limited ankle range of motion secondary to pain. Not able to invert and grace her ankle secondary to pain. She is maxim ally tender to palpation over the Lisfranc joint but also has tenderness diffusely around her foot and ankle including medial lateral malleoli deltoid and ATFL ligaments, CFL ligament, as well as some mild tenderness over toes. I did not forcibly palpate over the blood blister for concern of rupturing it. Results & Data ([facility]) Vital Signs (Past 12 Hours) Vital Signs Temp Pulse Pulse Pulse Resp BP BP 07/26/21 16:46 62 07/26/21 15:00 36.4 C 60 18 138/70 07/26/21 11:33 36.5 C 60 18 124/64 07/26/21 09:59 115/62 07/26/21 07:51 36.4 C L 70 16 211/75 H Pulse Ox 07/26/21 16:46 07/26/21 15:00 97 07/26/21 11:33 97 07/26/21 09:59 07/26/21 07:51 98 Diagnostic Findings Results reviewed: Foot x-rays that were done earlier today are reviewed. I agree with the radiologist interpretation that there is some small step-off of the second and third metatarsals seen on the oblique view. On my read there may be a small nondisplaced fracture of the second and possibly third metatarsals. No displacement is noted on the lateral view although the blood blister overlying the metatarsals and MTP joints is readily visible. Soft tissue swelling about the ankles also visible on her ankle films.
[2021-07-26] MEDS: SERTRALINE HCL 50 MG TABLET PO SCH (21:13)
--- NOTE | 2021-07-26 21:33 | Ultrasound Report ---
ULTRASOUND OF THE CAROTID ARTERIES CLINICAL HISTORY: near syncope COMPARISON: None available at the time of this dictation. TECHNIQUE: Real-time, grayscale, and color Doppler sonography of the carotid arteries is performed. I mages are reviewed in the transverse and longitudinal planes. FINDINGS: The carotid arteries are patent bilaterally and demonstrate antegrade flow. There is large atheroscle rotic plaque on the right and moderate atherosclerotic plaque on the left. Normal doppler arterial wa veforms are seen throughout. Velocity measurements are listed below. Common carotid peak systolic velocity (cm/sec): RIGHT: 69 LEFT: 75 ICA peak systolic velocity (cm/sec): RIGHT: 114 LEFT: 161 ICA/CC peak systolic ratio: RIGHT: 1.7 LEFT: 2.1 Antegrade flow was shown in the vertebral arteries. The external carotid arteries are patent. IMPRESSION: 1. The right carotid artery demonstrates less than 50% stenosis. The left carotid artery demonstrate s 50-69% stenosis. Bilateral atherosclerotic disease is seen. 2. Antegrade flow is shown in the vertebral arteries. Society of Radiologists in Ultrasound consensus guidelines: Normal: ICA PSV is <125 cm/sec and no plaque or intimal thickening is visible sonographically additional criteria include ICA/CCA PSV ratio <2.0 and ICA EDV <40 cm/sec <50% ICA stenosis: ICA PSV is <125 cm/sec and plaque or intimal thickening is visible sonographically additional criteria include ICA/CCA PSV ratio <2.0 and ICA EDV <40 cm/sec 50-69% ICA stenosis: ICA PSV is 125-230 cm/sec and plaque is visible sonographically additional criteria include ICA/CCA PSV ratio of 2.0-4.0 and ICA EDV of 40-100 cm/sec ?70% ICA stenosis but less than near occlusion: ICA PSV is >230 cm/sec and visible plaque and luminal narrowing are seen at [place]-scale and color Dopp ler ultrasound (the higher the Doppler parameters lie above the threshold of 230 cm/sec, the greater the likelihood of severe disease) additional criteria include ICA/CCA PSV ratio >4 and ICA EDV >100 cm/sec ACT 112: Negative or not required by law. Electronically signed by: Alessandro Castro M.D. 07/26/2021 9:31 PM
[2021-07-27 06:54] LABS: Basophils # (auto) 0.01 K/uL (0-0.2); Basophils % (auto) 0.1 %; Eosinophils # (auto) 0.18 K/uL (0-0.5); Eosinophils % (auto) 2.5 %; Hematocrit (blood only) 32.3 % (37-47); Hemoglobin 10.8 g/dL (12.0-16.0); Immature Granulocytes # (auto) 0.04 K/uL (0.00-0.02); Immature Granulocytes % (auto) 0.6 %; Lymphocytes # (auto) 0.71 K/uL (1.2-3.4); Lymphocytes % (auto) 9.8 %; Mean Corpuscular Hemoglobin 31.1 pg (25-34); Mean Corpuscular Hgb Conc 33.4 g/dL (32-36); Mean Corpuscular Volume 93.1 fL (80-100); Mean Platelet Volume 10.4 fL (7.4-10.4); Monocytes # (auto) 1.12 K/uL (0.11-0.59); Monocytes % (auto) 15.4 %; Neutrophils % (auto) 71.6 %; Platelet Count 176 K/uL (130-400); RDW Coefficient of Variation 14.1 % (11.5-14.5); Red Blood Count 3.47 M/uL (4.2-5.4); White Blood Count 7.26 K/uL (4.8-10.8)
[2021-07-27 07:10] LABS: BUN Creatinine Ratio 30.3 (10-20); Calcium 8.7 mg/dl (8.5-10.1); Creatinine Clr Calc Pharmacy 25.1 ml/min; Est GFR (African American) 37.4 ml/min; Est GFR (Non-African American) 32.3 ml/min; Potassium 3.9 mmol/L (3.5-5.1)
--- NOTE | 2021-07-27 08:18 | Hospitalist Progress Note ---
Date of Service July 27, 2021 Assessment & Plan (1) Fall: Plan: 85yo female presenting after ground level fall and right foot pain - In talking with patient, she has had frequent falls. She lives alone in a two-story home. Is independent. Utilizes a wheeled walker - has been c/o intermittent dizziness without syncope and reports this was the cause of her fall (without LOC-- see below) - This GLF has resulted in a Lisfranc fracture of the right foot and sprained left ankle. Is now NWB. CM on board looking into placement/rehab (2) Near syncope: Plan: -Exact etiology unclear but suspect d/t her A.Fib with variable rate control - patient has been on a cardiac monitoring showing variable response and tachycardia with limited exertion (sitting up in bed or getting washed). Adjust meds as outlined below - pacemaker interrogation ordered-- not done yet - not vertiginous in its description - carotid doppler: Right- 50% stenosis. Left 50-69% stenosis. No HD significant stenosis with patent flow. --not on any antiplatelet agents. Does take Eliquis for A.Fib. With frequent falls and current hematoma in the foot, would stop Eliquis. With Carotid Stenosis, will consider addition of ASA --can consider vascular referral as an OP; however, guidlines for repair are >/=70% with stroke like symptoms or 50-70% with TIA symptoms. - echocardiogram: concentric LVH. Normal systolic function. Mild-mod MR. No - Orthostatic VS ordered, no yet obtained. (3) Lisfranc fracture: Plan: - 2/2 to recent fall with associated hematoma (mild) - splint in place (by ED) - Ortho on board: appreciate assistance. --recommendations are for NWB status to RLE x6 weeks. Avoiding cast right away given the hematoma. May consider cam boot instead. Will reassess and place Wednesday or Wednesday (4) Carotid stenosis: Plan: - carotid doppler: Right- 50% stenosis. Left 50-69% stenosis. No HD significant stenosis with patent flow. - takes chronic Eliquis for her A.Fib (however, consider stopping this given frequent falls) - would not add ASA in addition to the Eliquis on board but with consideration of stopping the Eliquis all together, would consider starting ASA (5) Venous stasis ulcer: Plan: - Some drainagequestion mucopurulent drainage versus granulation sloughing - No superimposed or surrounding cellulitis. Patient afebrile with a normal white blood cell count - Wound culture obtained but myself (wound with some undermining). WC showing 2 different gram negative organisms - start Rocephin. Does have reported allergy to keflex but uncertain of reaction. Would prefer to avoid Quinolones in her given her age and risk of AMS with this - Consult wound nurseappreciate recommendations - CT ordered given undermining and tunneling when obtaining culture data. No evidence of abscess or osteomyelitis seen (6) Atrial fibrillation: Plan: Currently in a normal sinus rhythm with controlled ventricular rate at rest but variable reponse in the monitor (up to 110's with limited exertion such as leaning foward) - Continue metoprolol as prior to hospitalization (this is maxed out as she is taking Succinate 100mg BID) - given variable response, suspect that this may be contributing to her near syncope. - will add cardizem (EF normal and there is room with BP) for added HR control. Ideally, she would be permanently placed (does have PPM) --start Cardizem 30mg q6h with plan to transition to long acting if she tolerated this - Holding Eliquis. Fractures nonsurgical but does have small hematoma - consider stopping Eliquis permanently and transitioning to ASA given frequent falls --HASBLED score=3. ChadVasc2 score=3 (7) Chronic kidney disease, stage IV (severe): Plan: BUN and Cr near baseline -Avoid nephrotoxic agents (8) Depression: Plan: Stable. Well controlled with medications -Continue Sertraline 25mg po qHS Plan: d/w Dr. Driver Admission and Anticipated Discharge Date Admission Date: July 26, 2021 Subjective Patient seen on daily rounds today. Has since been seen by Ortho for the Lisfranc fracture and is to be NWB x6 weeks. Also, because of a recent falls s everal weeks ago resulting in a sprain of the Left ankle, ambulation is a struggle. Patient lives alone. Also, since being placed on the monitor, she has had intermittent A.Fib/Sinus with variable response. HR for the most part at rest is in the 70's. She has been mostly bedbound and with limited exertion (such as leaning forward or the nurse helping her get washed up), she is getting slightly tachycardic into the 110's. BP has remained elevated (165/68) Review of Systems Review of Systems: All systems reviewed and are unremarkable except as noted in HPI and below Denies fevers, chills, headache, nasal congestion, sore throat, cough, chest pain, shortness of breath, palpitations, orthopnea, PND, abdominal pain, nausea, vomiting, diarrhea, constipation, dysuria, hematuria, frequency, back pain, joint pain or swelling, easy bruising or bleeding, Physical Exam Physical Exam: General: Resting comfortably in her hospital bed. Pleasant. NAD. HEENT: Head is AT/NC. Buccal mucosa is moist and pink Neck: No JVD. Negative hepatojugular reflex Cardiac: currently in a NSR with 2/6 JAMAAL Lungs: CTA without W/R/R Abdomen: Normoactive X4. Soft and nontender in all quadrants. Extremities: Bilateral lower extremities are very edematous but more so adiposity than true pitting edema. Vascular changes noted bilaterally. Wound on the left holland is covered. Right foot remains in a splint. Small hematoma over the top of the foot. DP and PT pulses intact and symmetrical. Neuro: A&O X4. Cranial nerves II through XII are grossly intact. No focal neuro deficits Skin: No obvious skin lesions or rashes Psych: Appropriate affect. Pleasant and cooperative Results & Data Results & Data ([facility]) Vital Signs (Past 12 Hours) Vital Signs Temp Pulse Pulse Resp BP BP Pulse Ox 07/27/21 07:19 75 07/27/21 07:12 36.7 C 66 16 165/68 H 96 07/27/21 03:15 36.9 C 65 16 172/67 H 96 07/26/21 22:44 36.7 C 67 20 147/73 H 91 07/26/21 22:17 68 Laboratory Results 07/27/21 06:20 07/27/21 06:20 Gram Stain Final 07/26/21-1236 Gram Stain Result Many Polys Moderate Gram Positive Cocci Few Gram Negative Bacilli Deep Wound Culture Preliminary 07/27/21-31 Organism 1 Gram negative bacilli Quantity Moderate Sens Sensitivities to Follow Organism 2 Gram negative bacilli#2 Quantity Moderate Sens Sensitivities to Follow PG Care Time/CCT Total # of Minutes Spent Total Time Spent with Patient: Total time spent is greater than 50% in coordination of care (as documented) at patient's floor/unit and/or counseling patient: Coding Level of Care Code 09244 Subseq Hosp Care Lvl 3 Diagnoses Fall W19.XXXA Encounter type: initial encounter Near syncope R55 Venous stasis ulcer I83.009; L97.909 Atrial fibrillation I48.91 Atrial fibrillation type: unspecified Chronic kidney disease, stage IV (severe) N18.4 Depression F32.9 Depression Type: unspecified Carotid stenosis I65.29 Lisfranc fracture (1) Atrial fibrillation Atrial fibrillation type: unspecified Qualified Code(s): I48.91 - Unspecified atrial fibrillation (2) Depression Depression Type: unspecified Qualified Code(s): F32.9 - Major depressive disorder, single episode, unspecified (3) Fall Encounter type: initial encounter Qualified Code(s): W19.XXXA - Unspecified fall, initial encounter
[2021-07-27] MEDS ORDERED: cefTRIAXone SODIUM 1,000 MG in DEXTROSE 5% 50 ML IV SCH (09:00)
[2021-07-27] MEDS: ACETAMINOPHEN 325 MG TAB PO PRN (09:56)
[2021-07-27] MEDS: dilTIAZem HCL 30 MG TAB PO SCH ×3 (09:57→20:41)
[2021-07-27] MEDS: METOPROLOL SUCC 50MG EXT REL TAB PO SCH ×2 (09:57→20:41)
[2021-07-27] MEDS: allopurinoL 100 MG TAB PO SCH (09:57)
[2021-07-27] MEDS: PANTOprazole 40 MG TAB PO SCH (09:58)
[2021-07-27] MEDS: SERTRALINE HCL 50 MG TABLET PO SCH (20:41)
[2021-07-28 07:08] LABS: Hematocrit (blood only) 30.9 % (37-47); Hemoglobin 10.2 g/dL (12.0-16.0); Mean Corpuscular Hemoglobin 30.7 pg (25-34); Mean Corpuscular Volume 93.1 fL (80-100); Mean Platelet Volume 9.8 fL (7.4-10.4); Platelet Count 162 K/uL (130-400); RDW Coefficient of Variation 14.1 % (11.5-14.5); RDW Standard Deviation 48.4 fL (36.4-46.3); Red Blood Count 3.32 M/uL (4.2-5.4); White Blood Count 9.49 K/uL (4.8-10.8)
[2021-07-28 07:35] LABS: BUN Creatinine Ratio 26.9 (10-20); Calcium 8.7 mg/dl (8.5-10.1); Creatinine Clr Calc Pharmacy 25.1 ml/min; Est GFR (African American) 37.4 ml/min; Est GFR (Non-African American) 32.3 ml/min; Potassium 4.2 mmol/L (3.5-5.1)
[2021-07-28] MEDS ORDERED: cefTRIAXone SODIUM 1,000 MG in DEXTROSE 5% 50 ML IV SCH (09:00)
--- NOTE | 2021-07-28 09:17 | Orthopedic Progress Note ---
Date of Service July 28, 2021 Assessment & Plan (1) Lisfranc fracture: Plan: - NWB x 6 weeks - Posterior U splint applied today - Xeroform placed over fracture blister - Change dressing on left holland today and reinforce as needed, last changed by RN on 07/26 - Bed rest with RLE elevated - Ice RLE - Pt will need wheelchair due to her left ankle sprain and NWB status on RLE - Strongly recommend long term facility for at least 6 to 8 weeks - She can resume her Eliquis from an orthopedic standpoint for DVT prophylaxis so long as her foot and ankle hematoma are not enlarging Admission and Anticipated Discharge Date Admission Date: July 27, 2021 Subjective Pt seen and examined bedside. She says that she had a rough night and was unable to sleep. She says that her pain is overall controlled. She denies any numbness or tingling in her right foot. Physical Exam Physical Exam: General: Pt laying in hospital bed AA&O, in NAD, calm and cooperative during exam Lower Extremity: Moderate amount of swelling and ecchymosis noted on right dist al extremity. Fracture blister measuring approx 2.5 inches in diameter on distal aspect of forefoot. Pt has full ROM of all 5 digits. Strength deferred due to injury. SLR in tact. Calf supple and non tender. NVI with sensation to light touch distally and good distal pulses present. Lower extremity noted to have good color and temperature with no signs of vascular or lymphatic insufficiency. Posterior U splint was applied to right lower extremity. NV status unchanged after splint application. Pt reports splint is comfortable and fitting appropriately. Results & Data ([facility]) Vital Signs (Past 12 Hours) Vital Signs Temp Pulse Pulse Pulse Resp BP Pulse Ox 07/28/21 07:35 37.2 C 66 18 149/69 H 91 07/28/21 03:58 37.1 C 61 18 136/67 94 07/27/21 23:07 36.9 C 67 18 152/63 H 91 07/27/21 22:17 67 Laboratory Results 07/28/21 07/28/21 Range/Units 06:43 06:43 WBC 9.49 (4.8-10.8) K/uL RBC 3.32 L (4.2-5.4) M/uL Hgb 10.2 L (12.0-16.0) g/dL Hct 30.9 L (37-47) % MCV 93.1 (80-100) fL MCH 30.7 (25-34) pg MCHC 33.0 (32-36) g/dL RDW Std Deviation 48.4 H (36.4-46.3) fL RDW Coeff of Thee 14.1 (11.5-14.5) % Plt Count 162 (130-400) K/uL MPV 9.8 (7.4-10.4) fL Sodium 134 L (136-145) mmol/L Potassium 4.2 (3.5-5.1) mmol/L Chloride 100 (98-107) mmol/L Carbon Dioxide 29 (21-32) mmol/L Anion Gap 5 (3-11) BUN 39 H (6-23) mg/dl Creatinine 1.45 H (0.6-1.2) mg/dl Est Cr Clr Drug Dosing 25.1 ml/min Est GFR ( Amer) 37.4 ml/min Est GFR (Non-Af Amer) 32.3 ml/min BUN/Creatinine Ratio 26.9 H (10-20) Glucose 119 H (70-99(Fasting)) mg/dl Calcium 8.7 (8.5-10.1) mg/dl
[2021-07-28] MEDS: ACETAMINOPHEN 325 MG TAB PO PRN ×2 (09:31→18:39)
[2021-07-28] MEDS: dilTIAZem HCL 30 MG TAB PO SCH ×3 (09:32→20:24)
[2021-07-28] MEDS: ENOXAPARIN INJ 30 MG/0.3 ML SYR SQ SCH (09:32)
[2021-07-28] MEDS: allopurinoL 100 MG TAB PO SCH (09:32)
[2021-07-28] MEDS: PANTOprazole 40 MG TAB PO SCH (09:33)
[2021-07-28] MEDS: METOPROLOL SUCC 50MG EXT REL TAB PO SCH ×2 (09:33→20:24)
[2021-07-28] MEDS: FUROSEMIDE 20 MG TAB PO SCH (09:33)
[2021-07-28] MEDS ORDERED: CEFEPIME 2,000 MG in SYRINGE 0 ML IV SCH (11:00)
--- NOTE | 2021-07-28 16:22 | Hospitalist Progress Note ---
Date of Service July 28, 2021 Assessment & Plan (1) Fall: Plan: 85yo female presenting after ground level fall and right foot pain - In talking with patient, she has had frequent falls. She lives alone in a two-story home. Is independent. Utilizes a wheeled walker - has been c/o intermittent dizziness without syncope and reports this was the cause of her fall (without LOC-- see below) - This GLF has resulted in a Lisfranc fracture of the right foot and sprained left ankle. Is now NWB. CM on board looking into placement/rehab (2) Near syncope: Plan: -Exact etiology unclear but suspect d/t her A.Fib with variable rate control - patient has been on a cardiac monitoring showing variable response and tachycardia with limited exertion (sitting up in bed or getting washed). Adjust meds as outlined below - pacemaker interrogation ordered-- not done yet - not vertiginous in its description - carotid doppler: Right- 50% stenosis. Left 50-69% stenosis. No HD significant stenosis with patent flow. --not on any antiplatelet agents. Does take Eliquis for A.Fib. With frequent falls and current hematoma in the foot, would stop Eliquis. With Carotid Stenosis, add ASA --can consider vascular referral as an OP; however, guidlines for repair are >/=70% with stroke like symptoms or 50-70% with TIA symptoms With advanced age, would not recommend surgery - echocardiogram: concentric LVH. Normal systolic function. Mild-mod MR. No - Orthostatic VS ordered: no evidence of orthostatic hypotension (3) Lisfranc fracture: Plan: - 2/2 to recent fall with associated hematoma (mild) - initial splint placed by ED with subsequent splint today by ortho - Ortho on board: appreciate assistance. --recommendations are for NWB status to RLE x6 weeks. Avoiding cast right away given the hematoma. --given NBW status, ideally would have something on board for DVT prophylaxis. 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 --currently has lovenox ordered for DVT prophylaxis while monitoring the hematoma. May consider placing back on Eliquis SHORT TERM just for prophylaxis with plan to stop given frequent falls (4) SunDown syndrome: Plan: - overnight (07/27 - 07/28) awoke ~0200 confused. Thought she was home and called 911 as she was confused. - after fully awake and reoriented, did well. Completely aware of the situation and not confused today - add melatonin. Can consider Seroquel (5) Carotid stenosis: Plan: - carotid doppler: Right- 50% stenosis. Left 50-69% stenosis. No HD significant stenosis with patent flow. 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 Patient afebrile with a normal white blood cell count - Wound culture showing Enterobacter and Acinetobacterboth sensitive to Cipro. Transition Rocephin to Cipro with renal adjustment for creatinine clearance of 23 --watch mentation closely but limited oral options. Needs 7 days of Tx - wound nurse on board-- appreciate recommendations --Discharge recommendations include: Aquacel Ag, cover with Optifoam. Change every other day and as needed. Follow-up with wound clinic if does not close in 1 week (7) Atrial fibrillation: Plan: Currently in a normal sinus rhythm with controlled ventricular rate at rest but variable reponse in the monitor (up to 110's with limited exertion such as leaning foward) - Continue metoprolol as prior to hospitalization (this is maxed out as she is taking Succinate 100mg BID) - given variable response, suspect that this may be contributing to her near syncope. - added Cardizem (EF normal and there is room with BP) for added HR control. Since this addition, has been mostly paced - Holding Eliquis. Fractures nonsurgical but does have small hematoma --on lovenox for DVT prophyl to ensure stability of hematoma. can resume Eliquis TEMPORARILY for DVT prophylaxis but uncertain if this should be continue [facility] given frequent falls. Can FU with Cardiology --HASBLED score=3. ChadVasc2 score=3 (8) Chronic kidney disease, stage IV (severe): Plan: BUN and Cr near baseline -Avoid nephrotoxic agents (9) Depression: Plan: Stable. Well controlled with medications -Continue Sertraline 25mg po qHS Plan: plan of care to be d/w Dr. 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 Vocalizes no complaints or concerns. Is able to tell me that last evening she felt somewhat confused. Awoke around 2 AM and thought she was at home. Got very paranoid and called the police. Then later realized that she was in the hospital. She is awake and alert. Oriented to details of last night. Orthopedics did place a splint on the right foot. She does have a blood blister/hematoma to the top of the foot. since addition of Cardizem-- has been mostly paced. Review of Systems Review of Systems: All systems reviewed and are unremarkable except as noted in HPI and below Denies fevers, chills, headache, nasal congestion, sore throat, cough, chest pain, shortness of breath, palpitations, orthopnea, PND, abdominal pain, nausea, vomiting, diarrhea, constipation, dysuria, hematuria, frequency, back pain, joint pain or swelling, easy bruising or bleeding, skin lesions or rashes. Physical Exam Physical Exam: General: Resting comfortably in her hospital bed. Pleasant. NAD. HEENT: Head is AT/NC. Buccal mucosa is moist and pink Neck: No JVD. Negative hepatojugular reflex Cardiac: currently in a NSR with 2/6 JAMAAL Lungs: CTA without W/R/R Abdomen: Normoactive X4. Soft and nontender in all quadrants. Extremities: + adiposity. blood blister and hematoma to the top of the right feet. Cap RF +2. Neuro: A&O X4. Cranial nerves II through XII are grossly intact. No focal neuro deficits Skin:left holland wound covered. Psych: Appropriate affect. Pleasant and cooperative Results & Data Results & Data ([facility]) Vital Signs (Past 12 Hours) Vital Signs Temp Pulse Pulse Resp BP Pulse Ox 07/28/21 15:34 36.8 C 62 18 128/69 95 07/28/21 10:57 36.8 C 60 18 121/62 91 07/28/21 08:00 62 04/11/22 07:35 37.2 C 66 18 149/69 H 91 07/28/21 03:58 37.1 C 61 18 136/67 94 Laboratory Results 07/28/21 06:43 07/28/21 06:43 Deep Wound Culture Preliminary 07/28/21-1214 Organism 1 Enterobacter cloacae Quantity Moderate Sens Sensitivities to Follow +MixWound Plus Moderate Counts of Probable Skin Agnieszka Organism 2 Acinetobacter baumannii/haemol Quantity Moderate Sens Sensitivities to Follow E cloacae Ac bau/hae RX M.I.C. RX M.I.C. --- --------- --- --------- Amp/Sul S <=8/4 Cefepime S <=2 S <=2 Ceftazidime S 4 Ceftriaxone S <=1 Ciprofloxacin S <=0.25 S <=0.25 Ertapenem S <=0.5 Gentamicin S <=4 S <=4 Levofloxacin S <=0.5 S <=0.5 Meropenem S <=1 S <=1 Tobramycin S <=4 S <=4 Trimeth/Sulfa S <=2/38 S <=2/38 Pip/Tazo R >64 S = SENSITIVE I = INTERMEDIATE R = RESISTANT PG Care Time/CCT Total # of Minutes Spent Total Time Spent with Patient: Total time spent is greater than 50% in coordination of care (as documented) at patient's floor/unit and/or counseling patient: Coding Level of Care Code 99061 Subseq Hosp Care Lvl 2 Diagnoses Fall W19.XXXA Encounter type: initial encounter Near syncope R55 Lisfranc fracture Carotid stenosis I65.29 Venous stasis ulcer I83.009; L97.909 Atrial fibrillation I48.91 Atrial fibrillation type: unspecified Chronic kidney disease, stage IV (severe) N18.4 Depression F32.9 Depression Type: unspecified SunDown syndrome F05 (1) Fall Encounter type: initial encounter Qualified Code(s): W19.XXXA - Unspecified fall, initial encounter (2) Atrial fibrillation Atrial fibrillation type: unspecified Qualified Code(s): I48.91 - Unspecified atrial fibrillation (3) Depression Depression Type: unspecified Qualified Code(s): F32.9 - Major depressive disorder, single episode, unspecified
[2021-07-28] MEDS ORDERED: DICLOFENAC SOD 1% GEL 100 GM TUBE EXT PRN (18:46)
[2021-07-28] MEDS: MELATONIN 3 MG TAB PO SCH (20:23)
[2021-07-28] MEDS: SERTRALINE HCL 50 MG TABLET PO SCH (20:24)
[2021-07-29 07:29] LABS: Creatinine Clr Calc Pharmacy 19.7 ml/min; Est GFR (African American) 27.9 ml/min; Est GFR (Non-African American) 24.1 ml/min
[2021-07-29] MEDS: allopurinoL 100 MG TAB PO SCH (08:41)
[2021-07-29] MEDS: METOPROLOL SUCC 50MG EXT REL TAB PO SCH ×2 (08:42→21:09)
[2021-07-29] MEDS: ASPIRIN 81 MG ECTAB PO SCH (08:42)
[2021-07-29] MEDS: dilTIAZem HCL 120 MG CAPCR PO SCH (08:42)
[2021-07-29] MEDS: PANTOprazole 40 MG TAB PO SCH (08:42)
[2021-07-29] MEDS: CIPROFLOXACIN 500 MG TAB PO SCH (08:42)
[2021-07-29] MEDS: ENOXAPARIN INJ 30 MG/0.3 ML SYR SQ SCH ×2 (08:43→08:44)
[2021-07-29] MEDS ORDERED: PANTOprazole 40 MG TAB PO SCH (09:00)
--- NOTE | 2021-07-29 10:21 | Orthopedic Progress Note ---
Date of Service July 29, 2021 Assessment & Plan (1) Lisfranc fracture: Plan: - NWB x 6 weeks - Posterior U splint Is comfortable clean dry and intact - Patient has a small piece of Xeroform lying over the fracture blister. - Ice, elevate RLE - Pt will need wheelchair due to her left ankle sprain and NWB status on RLE - Strongly recommend senior living facility for at least 6 to 8 weeks - She can resume her Eliquis from an orthopedic standpoint for DVT prophylaxis so long as her foot and ankle hematoma are not enlarging - Patient will need a follow-up at [facility] orthopedics in [address] West or ANDREW Hyman PA-C. Admission and Anticipated Discharge Date Admission Date: July 27, 2021 Subjective This pleasant 85-year-old female was seen this morning during rounds for a Lisfranc injury to her right foot. Patient states she had a splint placed on it yesterday. She states it is very comfortable. She states that she does have some pain in the foot but states it is much better than yesterday. She denies any numbness or tingling. She denies chest pain, shortness of breath, fever, chills, sweats, lethargy, nausea, vomiting or diarrhea. Review of Systems Review of Systems: All systems reviewed & are unremarkable except as noted in Subjective Physical Exam Physical Exam: Right foot: Splint is clean dry and intact. Patient has a significant Fracture blister on the dorsum of the foot that is approximately 2- 1/2 inches x 1 and three-quarter inches just proximal to the base of her digits. There is no drainage from the blister. Patient does have some tenderness to palpation just distal to the talus on the dorsum of the foot. She is able to detect light sensation to touch over the pads of her digits. She is able to move the digits. Capillary refill is slightly greater than 2 seconds. Patient has no tenderness over the anterior lower leg. She is able to perform a straight leg raise test. She is able to flex her knee to 90 degrees. She is neurovascularly intact in the right lower extremity. Results & Data ([facility]) Vital Signs (Past 12 Hours) Vital Signs Temp Pulse Pulse Pulse Resp BP Pulse Ox 07/29/21 07:52 36.4 C L 58 L 20 167/69 H 97 04/12/22 06:15 60 07/29/21 03:04 36.5 C 60 18 150/70 H 94 07/28/21 23:08 36.5 C 61 18 122/50 L 94 07/28/21 22:18 61 Diagnostic Findings Laboratory Results WBC 9.49 K/uL (4.8-10.8) 07/28/21 06:43 RBC 3.32 M/uL (4.2-5.4) L 07/28/21 06:43 Hgb 10.2 g/dL (12.0-16.0) L 07/28/21 06:43 Hct 30.9 % (37-47) L 07/28/21 06:43 MCV 93.1 fL (80-100) 07/28/21 06:43 MCH 30.7 pg (25-34) 07/28/21 06:43 MCHC 33.0 g/dL (32-36) 07/28/21 06:43 RDW Std Deviation 48.4 fL (36.4-46.3) H 07/28/21 06:43 RDW Coeff of Thee 14.1 % (11.5-14.5) 07/28/21 06:43 Plt Count 162 K/uL (130-400) 07/28/21 06:43 MPV 9.8 fL (7.4-10.4) 07/28/21 06:43 Immature Gran % (Auto) 0.6 % 07/27/21 06:20 Neut % (Auto) 71.6 % 07/27/21 06:20 Lymph % (Auto) 9.8 % 07/27/21 06:20 Wise % (Auto) 15.4 % 07/27/21 06:20 Eos % (Auto) 2.5 % 07/27/21 06:20 Baso % (Auto) 0.1 % 07/27/21 06:20 Neut # (Auto) 5.20 K/uL (1.4-6.5) 07/27/21 06:20 Lymph # (Auto) 0.71 K/uL (1.2-3.4) L 07/27/21 06:20 Wise # (Auto) 1.12 K/uL (0.11-0.59) H 07/27/21 06:20 Eos # (Auto) 0.18 K/uL (0-0.5) 07/27/21 06:20 Baso # (Auto) 0.01 K/uL (0-0.2) 07/27/21 06:20 Immature Gran # (Auto) 0.04 K/uL (0.00-0.02) H 07/27/21 06:20 ESR 65 mm/hr (0-30) H 07/26/21 09:28 PT 11.1 Seconds (9.0-12.0) 07/26/21 01:16 INR 1.0 (0.9-1.1) 07/26/21 01:16 Sodium 134 mmol/L (136-145) L 07/28/21 06:43 Potassium 4.2 mmol/L (3.5-5.1) 07/28/21 06:43 Chloride 100 mmol/L (98-107) 07/28/21 06:43 Carbon Dioxide 29 mmol/L (21-32) 07/28/21 06:43 Anion Gap 5 (3-11) 07/28/21 06:43 BUN 39 mg/dl (6-23) H 07/28/21 06:43 Creatinine 1.85 mg/dl (0.6-1.2) H D 07/29/21 06:25 Est Cr Clr Drug Dosing 19.7 ml/min 07/29/21 06:25 Est GFR ( Amer) 27.9 ml/min 07/29/21 06:25 Est GFR (Non-Af Amer) 24.1 ml/min 07/29/21 06:25 BUN/Creatinine Ratio 26.9 (10-20) H 07/28/21 06:43 Glucose 119 mg/dl (70-99(Fasting)) H 07/28/21 06:43 Calcium 8.7 mg/dl (8.5-10.1) 07/28/21 06:43 Magnesium 2.0 mg/dl (1.7-2.4) 07/27/21 06:20 Total Bilirubin 0.5 mg/dl (0.2-1.0) 07/26/21 01:16 AST 23 U/L (13-39) 07/26/21 01:16 ALT 10 U/L (7-52) 07/26/21 01:16 Alkaline Phosphatase 101 U/L (34-104) 07/26/21 01:16 C-Reactive Protein < 0.50 mg/dl (0-0.5) 07/26/21 09:28 Total Protein 7.8 gm/dl (6.0-8.3) 07/26/21 01:16 Albumin 3.9 gm/dl (3.4-5.0) 07/26/21 01:16 Globulin 3.9 gm/dl (2.5-4.0) 07/26/21 01:16 Albumin/Globulin Ratio 1.0 (0.9-2) 07/26/21 01:16 Urine Color Yellow 07/26/21 12:45 Urine Appearance Clear (Clear) 07/26/21 12:45 Urine pH 5.5 (4.5-7.5) 07/26/21 12:45 Ur Specific Kyle 1.012 (1.000-1.030) 07/26/21 12:45 Urine Protein Negative (Negative) 07/26/21 12:45 Urine Glucose (UA) Negative (Negative) 07/26/21 12:45 Urine Ketones Negative (Negative) 07/26/21 12:45 Urine Blood Negative (Negative) 07/26/21 12:45 Urine Nitrite Negative (Negative) 07/26/21 12:45 Urine Bilirubin Negative (Negative) 07/26/21 12:45 Urine Urobilinogen Negative (Negative) 07/26/21 12:45 Ur Leukocyte Esterase Trace (Negative) H 07/26/21 12:45 Urine WBC (Auto) 1-5 /hpf (0-5) 07/26/21 12:45 Urine RBC (Auto) 0-4 /hpf (0-4) 07/26/21 12:45 U Hyaline Cast (Auto) 1-5 /lpf (0-5) 07/26/21 12:45 U Epithel Cells (Auto) 10-20 /lpf (0-5) H 07/26/21 12:45 Urine Bacteria (Auto) Negative (Negative) 07/26/21 12:45 SARS-CoV-2, RNA, NAAT NEGATIVE (NEGATIVE) 07/26/21 02:40 Impressions Ankle X-Ray 07/26/21 00:40 XR ankle RT min 3V routine, XR foot RT min 3V routine, XR tibia fibula RT 2V CLINICAL HISTORY: Fall. Right lower leg, ankle, and foot pain. COMPARISON STUDY: Right tibia 05/16/2021. FINDINGS: Old, healed distal right fibular fracture, unchanged. No acute fracture or dislocation within the right tibia, fibula, ankle, or right foot. There is soft tissue swelling within the ankle. Plantar and posterior calcaneal spurs are noted. Vascular calcifications are present. Severe osteoarthritis within the lateral right knee. The bones are osteopenic. Soft tissue swelling within the dorsum of the foot. Questionable slight offset at the second and third tarsometatarsal joints. IMPRESSION: 1. Questionable slight offset at the second and third tarsometatarsal joints. This could be chronic. If the patient is complaining of mid foot pain then consider repeat radiograph to evaluate for the presence of a Lisfranc injury. 2. No acute fractures within the right lower leg or right ankle. ACT 112: Negative or not required by law. Electronically signed by: Klaus Moreno M.D. 07/26/2021 7:03 AM Foot X-Ray 07/26/21 00:40 XR ankle RT min 3V routine, XR foot RT min 3V routine, XR tibia fibula RT 2V CLINICAL HISTORY: Fall. Right lower leg, ankle, and foot pain. COMPARISON STUDY: Right tibia 05/16/2021. FINDINGS: Old, healed distal right fibular fracture, unchanged. No acute fracture or dislocation within the right tibia, fibula, ankle, or right foot. There is soft tissue swelling within the ankle. Plantar and posterior calcaneal spurs are noted. Vascular calcifications are present. Severe osteoarthritis within the lateral right knee. The bones are osteopenic. Soft tissue swelling within the dorsum of the foot. Questionable slight offset at the second and third tarsometatarsal joints. IMPRESSION: 1. Questionable slight offset at the second and third tarsometatarsal joints. This could be chronic. If the patient is complaining of mid foot pain then consider repeat radiograph to evaluate for the presence of a Lisfranc injury. 2. No acute fractures within the right lower leg or right ankle. ACT 112: Negative or not required by law. Electronically signed by: Klaus Moreno M.D. 07/26/2021 7:03 AM Tibia/Fibula X-Ray 07/26/21 00:40 XR ankle RT min 3V routine, XR foot RT min 3V routine, XR tibia fibula RT 2V CLINICAL HISTORY: Fall. Right lower leg, ankle, and foot pain. COMPARISON STUDY: Right tibia 05/16/2021. FINDINGS: Old, healed distal right fibular fracture, unchanged. No acute fracture or dislocation within the right tibia, fibula, ankle, or right foot. There is soft tissue swelling within the ankle. Plantar and posterior calcaneal spurs are noted. Vascular calcifications are present. Severe osteoarthritis within the lateral right knee. The bones are osteopenic. Soft tissue swelling within the dorsum of the foot. Questionable slight offset at the second and third tarsometatarsal joints. IMPRESSION: 1. Questionable slight offset at the second and third tarsometatarsal joints. This could be chronic. If the patient is complaining of mid foot pain then consider repeat radiograph to evaluate for the presence of a Lisfranc injury. 2. No acute fractures within the right lower leg or right ankle. ACT 112: Negative or not required by law. Electronically signed by: Klaus Moreno M.D. 07/26/2021 7:[address] 07/26/21 00:[address] DOSE: 537.48 mGy.cm HISTORY: Fall. Trauma TECHNIQUE: Multiaxial CT images of the head were performed without the use of intravenous contrast. Automated exposure control was utilized for this study. A dose lowering technique was utilized adhering to the principles of ALARA. Comparison: Head CT 05/16/2021. Findings: The paranasal sinuses and mastoid air cells are clear. The calvarium and skull base are intact. There is no mass, hematoma, midline shift, acute infarct. White matter hypodensity is nonspecific but suggestive of microvascular ischemic change. The ventricles and sulci demonstrate mild age-related involutional changes. Impression: No acute intracranial abnormality. ACT 112: Negative or not required by law. Electronically signed by: Klaus Moreno M.D. 07/26/2021 7:[address] 07/26/21 09:17 LEFT TIBIA/FIBULA CT CT DOSE: 362.60 mGy.cm HISTORY: Left lower leg wound - ? osteo TECHNIQUE: Multiaxial CT images of the left lower leg were performed and reformatted in the sagittal and coronal plane without the use of contrast. A dose lowering technique was utilized adhering to the principles of ALARA. COMPARISON: Left tibia/fibula 05/16/2021. FINDINGS: No acute fracture or dislocation within the left tibia or fibula. Small left knee effusion. Degenerative changes again noted within the left knee. No cortical destruction or erosions identified within the left lower leg to suggest an osteomyelitis. Vascular calcifications are present. There is mild skin thickening within the lower leg and multiple superficial varicosities. Mild pretibial subcutaneous fat stranding proximally. There is a focal skin ulceration within the anterolateral mid lower leg measuring approximately 1.8 cm. No underlying fluid collections to suggest an abscess. No radiopaque foreign bodies. IMPRESSION: 1. A 1.8 cm focal skin ulceration within the anterolateral mid left lower leg. No underlying abscess. 2. No evidence for osteomyelitis within the left lower leg. ACT 112: Negative or not required by law. Electronically signed by: Klaus Moreno M.D. 07/26/2021 11:26 AM Carotid Doppler Study 07/26/21 12:32 ULTRASOUND OF THE CAROTID ARTERIES CLINICAL HISTORY: near syncope COMPARISON: None available at the time of this dictation. TECHNIQUE: Real-time, grayscale, and color Doppler sonography of the carotid arteries is performed. Images are reviewed in the transverse and longitudinal planes. FINDINGS: The carotid arteries are patent bilaterally and demonstrate antegrade flow. There is large atherosclerotic plaque on the right and moderate atherosclerotic plaque on the left. Normal doppler arterial waveforms are seen throughout. Velocity measurements are listed below. Common carotid peak systolic velocity (cm/sec): RIGHT: 69 LEFT: 75 ICA peak systolic velocity (cm/sec): RIGHT: 114 LEFT: 161 ICA/CC peak systolic ratio: RIGHT: 1.7 LEFT: 2.1 Antegrade flow was shown in the vertebral arteries. The external carotid arteries are patent. IMPRESSION: 1. The right carotid artery demonstrates less than 50% stenosis. The left carotid artery demonstrates 50-69% stenosis. Bilateral atherosclerotic disease is seen. 2. Antegrade flow is shown in the vertebral arteries. Society of Radiologists in Ultrasound consensus guidelines: Normal: ICA PSV is <125 cm/sec and no plaque or intimal thickening is visible sonographically additional criteria include ICA/CCA PSV ratio <2.0 and ICA EDV <40 cm/sec <50% ICA stenosis: ICA PSV is <125 cm/sec and plaque or intimal thickening is visible sonographically additional criteria include ICA/CCA PSV ratio <2.0 and ICA EDV <40 cm/sec 50-69% ICA stenosis: ICA PSV is 125-230 cm/sec and plaque is visible sonographically additional criteria include ICA/CCA PSV ratio of 2.0-4.0 and ICA EDV of 40-100 cm/sec ?70% ICA stenosis but less than near occlusion: ICA PSV is >230 cm/sec and visible plaque and luminal narrowing are seen at [place]-scale and color Doppler ultrasound (the higher the Doppler parameters lie above the threshold of 230 cm/sec, the greater the likelihood of severe disease) additional criteria include ICA/CCA PSV ratio >4 and ICA EDV >100 cm/sec ACT 112: Negative or not required by law. Electronically signed by: Alessandro Castro M.D. 07/26/2021 9:31 PM
[2021-07-29] MEDS ORDERED: SODIUM CHLORIDE 0.9% 500 ML IV SCH (14:45)
--- NOTE | 2021-07-29 15:06 | Hospitalist Progress Note ---
Date of Service July 29, 2021 Assessment & Plan (1) Fall: Plan: 85yo female presenting after ground level fall and right foot pain - In talking with patient, she has had frequent falls. She lives alone in a two-story home. Is independent. Utilizes a wheeled walker - has been c/o intermittent dizziness without syncope and reports this was the cause of her fall (without LOC-- see below) - This GLF has resulted in a Lisfranc fracture of the right foot and sprained left ankle. Is now NWB. CM on board looking into placement/rehab (2) Near syncope: Plan: -Exact etiology unclear but suspect d/t her A.Fib with variable rate control - patient has been on a cardiac monitoring showing variable response and tachycardia with limited exertion (sitting up in bed or getting washed). Adjusted medication as outlined below. Has been primarily paced now - pacemaker interrogation ordered-- not done yet - not vertiginous in its description - carotid doppler: Right- 50% stenosis. Left 50-69% stenosis. No HD significant stenosis with patent flow. --not on any antiplatelet agents. Does take Eliquis for A.Fib. With frequent falls and current hematoma in the foot-- Eliquis held. With Carotid Stenosis, added ASA (not ideal to have on both ASA and Eliquis) --can consider vascular referral as an OP; however, guidelines for repair are >/=70% with stroke like symptoms or 50-70% with TIA symptoms. With advanced age, would not recommend surgery - echocardiogram: concentric LVH. Normal systolic function. Mild-mod MR. No - Orthostatic VS : no evidence of orthostatic hypotension (3) Lisfranc fracture: Plan: - 2/2 to recent fall with associated hematoma (mild) - initial splint placed by ED with subsequent splint done 07/28 by ortho - Ortho on board: appreciate assistance. --recommendations are for NWB status to RLE x6 weeks. Avoiding cast right away given the hematoma. --given NBW status, ideally would have something on board for DVT prophylaxis. Was on Eliquis prior to this hospitalization which was stopped given frequent falls and hematoma/blood blister --currently has lovenox ordered for DVT prophylaxis while monitoring the hematoma/bleeding but she refuses. hematoma/blood blister stable. can resume Eliquis for DVT prophyl SHORT TERM. WOULD NOT USE ANESTHESIOLOGY PHYSICIAN ASSISTANT. (4) SunDown syndrome: Plan: - overnight (07/27 - 07/28) awoke ~0200 confused. Thought she was home and called 911 as she was confused. - after fully awake and reoriented, did well. Completely aware of the situation and not confused today - added melatonin. Can consider Seroquel (5) Carotid stenosis: Plan: - carotid doppler: Right- 50% stenosis. Left 50-69% stenosis. No HD significant stenosis with patent flow. - takes chronic Eliquis for her A.Fib (however, on hold given hematoma/blood blister and frequent falls) - added ASA 81mg daily - would not utilize ASA in addition to the Eliquis ocean transportation intermediary given age (again, Eliquis on hold) --This was D/W her established canning machine operator (who denotes CAD) and agrees with this plan --add Protonix for GI prophylaxis (6) Venous stasis ulcer: Plan: - infected venous stasis ulcer with undermining and tunneling - CT shows no evidence of abscess or osteomyelitis - No superimposed or surrounding cellulitis. Patient afebrile with a normal white blood cell count - Wound culture showing Enterobacter and Acinetobacterboth sensitive to Cipro. Transitioned Rocephin to Cipro with renal adjustment for creatinine clearance of 23 --watch mentation closely but limited oral options given allergies and sensitivities. Needs 7 days of Tx (to complete 08/03) - wound nurse on board-- appreciate recommendations --Discharge recommendations include: Aquacel Ag, cover with Optifoam. Change every other day and as needed. Follow-up with wound clinic if does not close in 1 week (7) Atrial fibrillation: Plan: variable response on the monitor up front (up to 110's with limited exertion such as leaning forward) - Continue metoprolol as prior to hospitalization (this is maxed out as she is taking Succinate 100mg BID) - given variable response, suspected that this may be contributing to her near syncope. - PPM interrogation ordered days ago-- still awaiting this - added Cardizem (EF normal and there is room with BP) for added HR control. Since this addition, has been mostly paced - Holding Eliquis. Fractures nonsurgical but does have small hematoma/blood blister --on lovenox for DVT prophyl to ensure stability of hematoma. can resume Eliquis TEMPORARILY for DVT prophylaxis but uncertain if this should be continue ocean transportation intermediary given frequent falls. Can FU with Cardiology --HASBLED score=3. ChadVasc2 score=3 (8) Chronic kidney disease, stage IV (severe): Plan: BUN and Cr uptrending slightly (1.83 with baseline on 1.3-1.8) - suspect related to Lasix and Abx on board - start gentle IV hydration with FU labs tomorrow (9) Depression: Plan: Stable. Well controlled with medications -Continue Sertraline 25mg po qHS patient also has anxiety, now asking for her Ativan that she takes at night. This is not an ideal medication given her advanced age. Did investigate the [place] drug monitoring system and it seems as if she does take this routinely at bedtime. Will resume but should consider down taper of this medication and discontinuation in the near future as benzodiazepines not ideal in elderly. Plan: plan of care to be d/w Dr. Driver Case management on board. Patient is medically and hemodynamically stable for discharge[facility] and Anticipated Discharge Date Admission Date: July 27, 2021 Subjective Patient seen on daily rounds today. Vocalizes no significant medical complaints or concerns. She is upset that her family doctor has not been in to visit. She is upset that her canning machine operator has not been in to visit. I assured her that Dr. James (her PCP) was in to see her on Wednesday and I have discussed her care with her. In addition, I reached out to her canning machine operator and spoke to the [employer] SUPERVISOR. Despite this, she feels as if her canning machine operator and family doctor should begin daily to visit. She was given melatonin last night and slept well. Despite that, she is having increased anxiety. She does take lorazepam at night and is requesting this be resumed. I did investigate the [place] drug monitoring system and she does take this medication pretty routine. She is frustrated that she is in the hospital awaiting placement and "she has n ot gone anywhere yet". Otherwise, she denies fevers, chills, chest pain, shortness breath, abdominal pain, nausea or vomiting. Review of Systems Review of Systems: All systems reviewed and are unremarkable except as noted in HPI and below Denies fevers, chills, headache, nasal congestion, sore throat, cough, chest pain, shortness of breath, palpitations, orthopnea, PND, abdominal pain, nausea, vomiting, diarrhea, constipation, dysuria, hematuria, frequency, back pain, joint pain or swelling, easy bruising or bleeding, skin lesions or rashes. Physical Exam Physical Exam: General: Resting comfortably in her hospital bed. Pleasant. NAD. HEENT: Head is AT/NC. Buccal mucosa is moist and pink Neck: No JVD. Negative hepatojugular reflex Cardiac: currently in a NSR with 2/6 JAMAAL Lungs: CTA without W/R/R Abdomen: Normoactive X4. Soft and nontender in all quadrants. Extremities: + adiposity. blood blister and hematoma to the top of the right feet. Cap RF +2. Neuro: A&O X4. Cranial nerves II through XII are grossly intact. No focal neuro deficits Skin: left holland wound covered. Psych: Appropriate affect. Pleasant and cooperative Results & Data Results & Data ([facility]) Vital Signs (Past 12 Hours) Vital Signs Temp Pulse Pulse Pulse Resp BP BP 07/29/21 11:43 36.4 C L 60 20 168/69 H 07/29/21 07:52 36.4 C L 58 L 20 167/69 H 07/29/21 06:15 60 07/29/21 03:04 36.5 C 60 18 150/70 H Pulse Ox 07/29/21 11:43 96 07/29/21 07:52 97 07/29/21 06:15 07/29/21 03:04 94 Laboratory Results Deep Wound Culture Preliminary 07/29/21-1225 Organism 1 Enterobacter cloacae Quantity Moderate Sens Sensitivities to Follow +MixWound Plus Moderate Counts of Probable Skin Agnieszka Organism 2 Acinetobacter baumannii/haemol Quantity Moderate Sens Sensitivities to Follow E cloacae Ac bau/hae RX M.I.C. RX M.I.C. --- --------- --- --------- Amp/Sul S <=8/4 Cefepime S <=2 S <=2 Ceftazidime S 4 Ceftriaxone S <=1 Ciprofloxacin S <=0.25 S <=0.25 Ertapenem S <=0.5 Gentamicin S <=4 S <=4 Levofloxacin S <=0.5 S <=0.5 Meropenem S <=1 S <=1 Tobramycin S <=4 S <=4 Trimeth/Sulfa S <=2/38 S <=2/38 Pip/Tazo R >64 S = SENSITIVE I = INTERMEDIATE R = RESISTANT 07/28/21 06:43 07/29/21 06:25 PG Care Time/CCT Total # of Minutes Spent Total Time Spent with Patient: Total time spent is greater than 50% in coordination of care (as documented) at patient's floor/unit and/or counseling patient: Coding Level of Care Code 06342 Subseq Hosp Care Lvl 2 Diagnoses Fall W19.XXXA Encounter type: initial encounter Near syncope R55 Lisfranc fracture SunDown syndrome F05 Carotid stenosis I65.29 Venous stasis ulcer I83.009; L97.909 Atrial fibrillation I48.91 Atrial fibrillation type: unspecified Chronic kidney disease, stage IV (severe) N18.4 Depression F32.9 Depression Type: unspecified (1) Fall Encounter type: initial encounter Qualified Code(s): W19.XXXA - Unspecified fall, initial encounter (2) Atrial fibrillation Atrial fibrillation type: unspecified Qualified Code(s): I48.91 - Unspecified atrial fibrillation (3) Depression Depression Type: unspecified Qualified Code(s): F32.9 - Major depressive disorder, single episode, unspecified
[2021-07-29] MEDS: APIXABAN 2.5 MG TAB PO SCH (21:07)
[2021-07-29] MEDS: LORazepam 0.5 MG TAB PO PRN (21:07)
[2021-07-29] MEDS: SERTRALINE HCL 50 MG TABLET PO SCH (21:08)
[2021-07-29] MEDS: MELATONIN 3 MG TAB PO SCH (21:09)
[2021-07-30] MEDS: ACETAMINOPHEN 325 MG TAB PO PRN ×3 (00:51→21:17)
[2021-07-30] MEDS ORDERED: ALBUT/IPRATROP 3MG/0.5MG NEB 3 ML VIAL ONE (06:56)
[2021-07-30] MEDS: PANTOprazole 40 MG TAB PO SCH (07:51)
[2021-07-30] MEDS: dilTIAZem HCL 120 MG CAPCR PO SCH (07:51)
[2021-07-30] MEDS: CIPROFLOXACIN 500 MG TAB PO SCH (07:51)
[2021-07-30] MEDS: ASPIRIN 81 MG ECTAB PO SCH (07:51)
[2021-07-30] MEDS: allopurinoL 100 MG TAB PO SCH (07:51)
[2021-07-30 07:55] LABS: Anion Gap 4 (3-11); BUN Creatinine Ratio 27.6 (10-20); Blood Urea Nitrogen 40 mg/dl (6-23); Calcium 9.4 mg/dl (8.5-10.1); Carbon Dioxide 33 mmol/L (21-32); Chloride 99 mmol/L (98-107); Creatinine Clr Calc Pharmacy 25.9 ml/min; Est GFR (African American) 37.4 ml/min; Est GFR (Non-African American) 32.3 ml/min; Glucose 98 mg/dl (70-99(Fasting)); Sodium 136 mmol/L (136-145)
[2021-07-30] MEDS: METOPROLOL SUCC 50MG EXT REL TAB PO SCH ×2 (08:35→21:14)
[2021-07-30] MEDS: APIXABAN 2.5 MG TAB PO SCH ×2 (08:35→21:14)
--- NOTE | 2021-07-30 11:56 | Orthopedic Progress Note ---
Date of Service July 30, 2021 Assessment & Plan (1) Lisfranc fracture: Plan: - NWB x 6 weeks - Posterior U splint Is comfortable clean dry and intact, Padded the proximal end of the splint. Opened up to the web roll and Paulino bandage and rewrapped loosely to help with some of the pressure. - Patient has a small piece of Xeroform lying over the fracture blister. - Ice, elevate RLE - Pt will need wheelchair due to her left ankle sprain and NWB status on RLE - Strongly recommend senior care facility for at least 6 to 8 weeks - Plan for discharge to [facility] medically stable and bed available. Possibly today. - She can resume her Eliquis from an orthopedic standpoint for DVT prophylaxis so long as her foot and ankle hematoma are not enlarging - Patient will need a follow-up at [facility] orthopedics in [address] West or ANDREW Hyman PA-C. Admission and Anticipated Discharge Date Admission Date: July 27, 2021 Subjective Patient is resting in bed today. She states that her pain and tightness of the splint has drastically increased since last night. She states that everything just feel so tight. She says that she has been keeping it elevated but just feels very swollen. She is concerned about the blister and thinks it needs to be "opened up." She states that she is most likely going to [facility] today. Physical Exam Musculoskeletal: Splint clean, dry and intact. There is a superficial blood fracture blister on the top of her right foot. It is not tense. It is soft. Toes move well with some increased pain in the midfoot. Capillary fill is brisk. Distal sensation is normal. Her splint and web roll was opened up throughout the middle. The top of the splint was padded with some ABDs. Calf is supple. She has some mild tenderness around the splint edges proximally. No skin breakdown. The splint and dressings were rewrapped with an Paulino bandage loosely. Distal pulses of her foot are 1+. She has positive skin wrinkles with no significant tense edema into her foot. She does have some edema, As expected. Results & Data ([facility]) Vital Signs (Past 12 Hours) Vital Signs Temp Pulse Pulse Resp BP BP Pulse Ox 07/30/21 11:02 36.8 C 65 18 151/63 H 96 07/30/21 07:22 73 07/30/21 07:00 37.0 C 73 16 184/78 H 171/77 H 96 07/30/21 04:44 169/78 H 07/30/21 03:33 36.6 C 87 18 182/75 H 96
--- NOTE | 2021-07-30 12:12 | Hospitalist Progress Note ---
Date of Service July 30, 2021 Assessment & Plan (1) Fall: Plan: 85yo female presenting after ground level fall and right foot pain - In talking with patient, she has had frequent falls. She lives alone in a two-story home. Is independent. Utilizes a wheeled walker - has been c/o intermittent dizziness without syncope and reports this was the cause of her fall (without LOC-- see below) - This GLF has resulted in a Lisfranc fracture of the right foot and sprained left ankle. Is now NWB to right lower extremity. CM on board looking into placement/rehab (2) Near syncope: Plan: -Exact etiology unclear but suspect d/t her A.Fib with variable rate control - patient has been on a cardiac monitoring showing variable response and tachycardia with limited exertion (sitting up in bed or getting washed). Adjusted medication as outlined below. Has been primarily paced now without further complaints of near syncope - pacemaker interrogation ordered--done. not yet scanned in computer. no report for me to look at. payroll secretary asking for it to be re-faxed. - not vertiginous in its description - carotid doppler: carotid stenosis noted-- see below - echocardiogram: concentric LVH. Normal systolic function. Mild-mod MR. No - Orthostatic VS : no evidence of orthostatic hypotension (3) Lisfranc fracture: Plan: - 2/2 to recent fall with associated hematoma (mild) - initial splint placed by ED with subsequent splint done 07/28 by ortho - Ortho on board: appreciate assistance. --recommendations are for NWB status to RLE x6 weeks. Avoiding cast right away given the hematoma. --given NBW status, ideally would have something on board for DVT prophylaxis. Was on Eliquis prior to this hospitalization which was held given frequent falls and hematoma/blood blister --was going to utilize lovenox for DVT prophl given NBW status and fracture but she refused. at this time, hematoma/blood blister stable. can resumed Eliquis for DVT prophyl SHORT TERM. WOULD NOT USE BASS SINGER. (Ortho gave blessing despite this hematoma and blood blister) (4) SunDown syndrome: Plan: - overnight (07/27 - 07/28) awoke ~0200 confused. Thought she was home and called 911 as she was confused. - after fully awake and reoriented, did well. Completely aware of the situation and not confused today - added melatonin. Can consider Seroquel (5) Carotid stenosis: Plan: - carotid doppler: Right- 50% stenosis. Left 50-69% stenosis. No HD significant stenosis with patent flow. --not on any antiplatelet agents prior to this hospitalization. Does take Eliquis for A.Fib which was on hold upfront given hematoma/blood blister in the foot-- Eliquis was held but has since been resumed SHORT TERM for DVT prophylaxis --can consider vascular referral as an OP; however, guidelines for repair are >/=70% with stroke like symptoms or 50-70% with TIA symptoms. With advanced age, would not recommend surgery - takes chronic Eliquis for her A.Fib (which I would use in the short term for DVT prophylaxis but then stop given advanced age and frequent falls) - Ideally would add ASA but do not want to have her on ASA and Eliquis concurrently - would add ASA after completion of the Eliquis for DVT prophylaxis --This was D/W her established bagger meat (who denotes CAD) and agrees with this plan --added Protonix for GI prophylaxis (given age and risk of GI irritation) (6) Venous stasis ulcer: Plan: - infected venous stasis ulcer with undermining and tunneling - CT shows no evidence of abscess or osteomyelitis - No superimposed or surrounding cellulitis. Patient afebrile with a normal white blood cell count - Wound culture showing Enterobacter and Acinetobacterboth sensitive to Cipro. Transitioned Rocephin to Cipro with renal adjustment for creatinine clearance of 23 --watch mentation closely but limited oral options given allergies and sensitivities. Needs 7 days of Tx (to complete 08/03) - wound nurse on board-- appreciate recommendations --Discharge recommendations include: Aquacel Ag, cover with Optifoam. Change every other day and as needed. Follow-up with wound clinic if does not close in 1 week (7) Atrial fibrillation: Plan: variable response on the monitor up front (up to 110's with limited exertion such as leaning forward) - Continue metoprolol as prior to hospitalization (this is maxed out as she is taking Succinate 100mg BID) - given variable response, suspected that this may be contributing to her near syncope. - PPM interrogation ordered days ago-- still awaiting this - added Cardizem (EF normal and room in BP for this) for added HR control. Since this addition, has been mostly paced - Does take Eliquis long-term. Held upfront given hematoma/blood blister but has since been resumed mostly for DVT prophylaxis. --Would recommend continuation of Eliquis X 30 days for DVT prophylaxis given these fractures and her nonweightbearing status. Following 30 days, would transition to aspirin --HASBLED score=3. ChadVasc2 score=3 (8) Chronic kidney disease, stage IV (severe): Plan: baseline on 1.3-1.8 -Slight increase in creatinine to 1.8 on 07/29. Suspect this was secondary to antibiotics and her chronic Lasix -She was given very gentle IV hydration and her Lasix dose held X1. Follow-up creatinine is back to baseline at 1.4 (9) Depression: Plan: Stable. Well controlled with medications -Continue Sertraline 25mg po qHS patient also has anxiety, takes chronic Ativan at bedtime. This is not an ideal medication given her advanced age. Did investigate the [place] drug monitoring system and it seems as if she does take this routinely at bedtime. This has been continued throughout this hospital stay but would consider down taper of this medication and discontinuation in the near future as benzodiazepines not ideal in elderly. Plan: plan of care to be d/w Dr River Case management on board. Patient is medically and hemodynamically stable for discharge. [facility] and Anticipated Discharge Date Admission Date: July 27, 2021 Subjective Patient seen on daily rounds today. Vocalizes no complaints or concerns. Denies fevers, chills, chest pain, shortness breath, abdominal pain, nausea or vomiting. Seen by orthopedics this morning. No change in treatment plan At this point, has been medically and hemodynamically stable for discharge. Awaiting authorization for placement. Has been accepted to [facility]. Review of Systems Review of Systems: All systems reviewed and are unremarkable except as noted in HPI and below Denies fevers, chills, headache, nasal congestion, sore throat, cough, chest pain, shortness of breath, palpitations, orthopnea, PND, abdominal pain, nausea, vomiting, diarrhea, constipation, dysuria, hematuria, frequency, back pain, joint pain or swelling, easy bruising or bleeding, skin lesions or rashes. Physical Exam Physical Exam: General: Resting comfortably in her hospital bed. Pleasant. NAD. HEENT: Head is AT/NC. Buccal mucosa is moist and pink Neck: No JVD. Negative hepatojugular reflex Cardiac: currently in a NSR with 2/6 JAMAAL Lungs: CTA without W/R/R Abdomen: Normoactive X4. Soft and nontender in all quadrants. Extremities: + adiposity. blood blister and hematoma to the top of the right feet. Cap RF +2. Neuro: A&O X4. Cranial nerves II through XII are grossly intact. No focal neuro deficits Skin: left holland wound covered. Psych: Appropriate affect. Pleasant and cooperative Results & Data Results & Data ([facility]) Vital Signs (Past 12 Hours) Vital Signs Temp Pulse Pulse Resp BP BP Pulse Ox 07/30/21 11:02 36.8 C 65 18 151/63 H 96 07/30/21 07:22 73 07/30/21 07:00 37.0 C 73 16 184/78 H 171/77 H 96 07/30/21 04:44 169/78 H 07/30/21 03:33 36.6 C 87 18 182/75 H 96 Laboratory Results 07/28/21 06:43 07/30/21 07:58 PG Care Time/CCT Total # of Minutes Spent Total Time Spent with Patient: Total time spent is greater than 50% in coordination of care (as documented) at patient's floor/unit and/or counseling patient: Coding Level of Care Code 56744 Subseq Hosp Care Lvl 2 Diagnoses Fall W19.XXXA Encounter type: initial encounter Near syncope R55 Lisfranc fracture SunDown syndrome F05 Carotid stenosis I65.29 Venous stasis ulcer I83.009; L97.909 Atrial fibrillation I48.91 Atrial fibrillation type: unspecified Chronic kidney disease, stage IV (severe) N18.4 Depression F32.9 Depression Type: unspecified (1) Atrial fibrillation Atrial fibrillation type: unspecified Qualified Code(s): I48.91 - Unspecified atrial fibrillation (2) Depression Depression Type: unspecified Qualified Code(s): F32.9 - Major depressive disorder, single episode, unspecified (3) Fall Encounter type: initial encounter Qualified Code(s): W19.XXXA - Unspecified fall, initial encounter
[2021-07-30] MEDS: traMADol HCL 50 MG TABLET PO PRN ×2 (13:26→21:17)
[2021-07-30] MEDS: SERTRALINE HCL 50 MG TABLET PO SCH (21:14)
[2021-07-30] MEDS: MELATONIN 3 MG TAB PO SCH (21:17)
[2021-07-30] MEDS: LORazepam 0.5 MG TAB PO PRN (21:17)
[2021-07-31] MEDS: CIPROFLOXACIN 500 MG TAB PO SCH (08:24)
[2021-07-31] MEDS: METOPROLOL SUCC 50MG EXT REL TAB PO SCH (08:24)
[2021-07-31] MEDS: APIXABAN 2.5 MG TAB PO SCH (08:24)
[2021-07-31] MEDS: PANTOprazole 40 MG TAB PO SCH (08:24)
[2021-07-31] MEDS: allopurinoL 100 MG TAB PO SCH (08:24)
[2021-07-31] MEDS: dilTIAZem HCL 120 MG CAPCR PO SCH (08:24)
--- NOTE | 2021-07-31 16:47 | Discharge Summary ---
Date of Service July 31, 2021 Admission HPI Per Admitting Provider Mishel Truong is an 85yo female with history of AF on Eliquis, CKD-IV, CHF presenting from home after a fall. Patient was recently hospitalized following a fall from 05/18/21 - 05/20/21. This evening she got up to use the bathroom. She ambulates with her walker. She tripped and the walker "went flying". Patient was unable to get up so she scooted to her bed and called 911. She denies head or neck trauma, loss of consciousness, she has full recollection of the entire event. She denies chest pain, palpitations, cough, SOB, abdominal pain, nausea, vomiting, diarrhea, constipation. She does get dizzy occasionally. Otherwise, no complaints. Pain in the ankle is well controlled. In the ER she is afebrile, Hypertensive otherwise HD stable. No respiratory complaints. Imaging is NEGATIVE for acute fracture. Labs are largely unremarkable and at baseline values. Patient lives alone. Has a daughter that lives locally. ER Course: Tylenol Principal Diagnosis 1. Lisfranc right lower extremity secondary to fall 2. Near syncopelikely due to A. fib with variable responsenow mostly paced 3. Venous stasis wound of the left lower extremityAcinetobacter/Enterobacter 4. AKIback to baseline 5. Carotid artery stenosis Discharge Exam General: Resting comfortably in her hospital bed. Pleasant. NAD. HEENT: Head is AT/NC. Buccal mucosa is moist and pink Neck: No JVD. Negative hepatojugular reflex Cardiac: currently in a NSR with 2/6 JAMAAL Lungs: CTA without W/R/R Abdomen: Normoactive X4. Soft and nontender in all quadrants. Extremities: + adiposity. blood blister and hematoma to the top of the right feet. Cap RF +2. Neuro: A&O X4. Cranial nerves II through XII are grossly intact. No focal neuro deficits Skin: left holland wound covered. Psych: Appropriate affect. Pleasant and cooperative Discharge Data Allergies Allergy/AdvReac Type Severity Reaction Status Date / Time Iodinated Contrast Media Allergy Severe Difficulty Verified 05/16/21 14:33 Breathing, Severe Hives Sulfa (Sulfonamide Allergy Mild . Verified 05/16/21 14:33 Antibiotics) cephalexin Allergy Unknown Unknown Verified 05/16/21 14:33 diphenhydramine Allergy Unknown DOES NOT Verified 05/16/21 14:33 REMEMBER potassium chloride Allergy Unknown unknown Verified 05/16/21 14:33 mushroom Allergy Unknown Verified 05/16/21 14:33 Consultations 07/26/21 02:39 ED Decision to Admit Stat 07/26/21 08:56 Consult Orthopedic Surgery Routine Ordered Studies 07/26/21 00:41 CT head/brain wo con Urgent 07/26/21 09:17 CT tib/fib LT wo con Routine 07/26/21 12:32 US carotid doppler BI Routine Hospital Course (1) Fall: 85yo female presenting after ground level fall and right foot pain - In talking with patient, she has had frequent falls. She lives alone in a two-story home. Is independent. Utilizes a wheeled walker - has been c/o intermittent dizziness without syncope and reports this was the cause of her fall (without LOC-- see below) - This GLF has resulted in a Lisfranc fracture of the right foot and sprained left ankle. Is now NWB to right lower extremity. CM on board --to [facility] today for continued inpatient rehabilitation (2) Near syncope: -Exact etiology unclear but suspect d/t her A.Fib with variable rate control - patient has been on a cardiac monitoring showing variable response and tachycardia with limited exertion (sitting up in bed or getting washed). Adjusted medication as outlined below. Has been primarily paced now without further complaints of near syncope - pacemaker interrogation ordered--done. not yet scanned in computer. no report for me to look at. confidential secretary asking for it to be re-faxed. - not vertiginous in its description - carotid doppler: carotid stenosis noted-- see below - echocardiogram: concentric LVH. Normal systolic function. Mild-mod MR. No - Orthostatic VS : no evidence of orthostatic hypotension (3) Lisfranc fracture: - 2/2 to recent fall with associated hematoma (mild) - initial splint placed by ED with subsequent splint done 07/28 by ortho - Ortho on board: appreciate assistance. --recommendations are for NWB status to RLE x6 weeks. Avoiding cast right away given the hematoma. --given NBW status, ideally would have something on board for DVT prophylaxis. Was on Eliquis prior to this hospitalization which was held given frequent falls and hematoma/blood blister --was going to utilize lovenox for DVT prophl given NBW status and fracture but she refused. at this time, hematoma/blood blister stable. can resumed Eliquis for DVT prophyl SHORT TERM. WOULD NOT USE [facility]. (Ortho gave blessing despite this hematoma and blood blister) -Temporary splint in place for now. Will follow up with orthopedics and either convert to cast or cam boot depending on blood blister/hematoma. In discussion with orthopedics, this may rupture. Would watch closely for signs and symptoms of infection if it does. (4) SunDown syndrome: - overnight (07/27 - 07/28) awoke ~0200 confused. Thought she was home and called 911 as she was confused. - after fully awake and reoriented, did well. Completely aware of the situation and not confused today - added melatonin. Can consider Seroquel (5) Carotid stenosis: - carotid doppler: Right- 50% stenosis. Left 50-69% stenosis. No HD significant stenosis with patent flow. --not on any antiplatelet agents prior to this hospitalization. Does take Eliquis for A.Fib which was on hold upfront given hematoma/blood blister in the foot-- Eliquis was held but has since been resumed SHORT TERM for DVT prophylaxis --can consider vascular referral as an OP; however, guidelines for repair are >/=70% with stroke like symptoms or 50-70% with TIA symptoms. With advanced age, would not recommend surgery - takes chronic Eliquis for her A.Fib (which I would use in the short term for DVT prophylaxis but then stop given advanced age and frequent falls) - Ideally would add ASA but do not want to have her on ASA and Eliquis concurrently - would add ASA after completion of the Eliquis for DVT prophylaxis --This was D/W her established publicity agent (who denotes CAD) and agrees with this plan --added Protonix for GI prophylaxis (given age and risk of GI irritation) (6) Venous stasis ulcer: - infected venous stasis ulcer with undermining and tunneling - CT shows no evidence of abscess or osteomyelitis - No superimposed or surrounding cellulitis. Patient afebrile with a normal white blood cell count - Wound culture showing Enterobacter and Acinetobacterboth sensitive to Cipro. Transitioned Rocephin to Cipro with renal adjustment for creatinine clearance of 23 --watch mentation closely but limited oral options given allergies and sensitivities. Needs 7 days of Tx (to complete 08/03) - wound nurse on board-- appreciate recommendations --Discharge recommendations include: Aquacel Ag, cover with Optifoam. Change every other day and as needed. Follow-up with wound clinic if does not close in 1 week (7) Atrial fibrillation: variable response on the monitor up front (up to 110's with limited exertion such as leaning forward) - Continue metoprolol as prior to hospitalization (this is maxed out as she is taking Succinate 100mg BID) - given variable response, suspected that this may be contributing to her near syncope. - PPM interrogation ordered days ago-- still awaiting this - added Cardizem (EF normal and room in BP for this) for added HR control. Since this addition, has been mostly paced - Does take Eliquis long-term. Held upfront given hematoma/blood blister but has since been resumed mostly for DVT prophylaxis. --Would recommend continuation of Eliquis X 30 days for DVT prophylaxis given these fractures and her nonweightbearing status. Following 30 days, would transition to aspirin --HASBLED score=3. ChadVasc2 score=3 (8) Chronic kidney disease, stage IV (severe): baseline on 1.3-1.8 -Slight increase in creatinine to 1.8 on 07/29. Suspect this was secondary to antibiotics and her chronic Lasix -She was given very gentle IV hydration and her Lasix dose held X1. Follow-up creatinine is back to baseline at 1.4 (9) Depression: Stable. Well controlled with medications -Continue Sertraline 25mg po qHS patient also has anxiety, takes chronic Ativan at bedtime. This is not an ideal medication given her advanced age. Did investigate the [place] drug monitoring system and it seems as if she does take this routinely at bedtime. This has been continued throughout this hospital stay but would consider down taper of this medication and discontinuation in the near future as benzodiazepines not ideal in elderly. plan of care to be d/w Dr. Barrios Total Time Total Time Spent Total Time Spent (In Minutes): 45 minutes including time spent with patient, coordination of care, preparation of documentation, discussion with attending provider Discharge Plan Discharge Items Patient Disposition: Transfer Inpatient Rehab Fac Reason For Visit: FALL, RIGHT ANKLE PAIN Discharge Diagnosis: 1. Lisfranc fracture of the right lower extremity secondary to fall 2. Near syncopelikely due to A. fib with variable responsenow mostly paced 3. Venous stasis wound of the left lower extremityAcinetobacter/Enterobacter 4. AKIback to baseline 5. Carotid artery stenosis Activity: As commented below Activity Comment: Nonweightbearing to Right LE until cleared by ortho Non-emergency contact: Primary Care Provider and Specialist Call non-emergency contact if: you have any medication questions and your symptoms worsen Follow-up/Referrals: Darío Milligan DO [Physician] - Patti James MD [Primary Care Provider] - Berhane West MD [Physician] - 08/12/21 11:00 am Diet: Heart Healthy Addtl Attending Provider Instructions: You presented to the hospital following a ground-level fall that occurred secondary to dizziness. You were found to have a fracture of your right foot (Lisfranc fracture) and need to remain nonweightbearing to the right lower extremity X 6 weeks and until cleared by orthopedics. You have a temporary splint to the right lower extremity given the amount of swelling in the blood blister to the top of the foot. He will follow up with Ortho on 08/12 (as scheduled) and potentially be transitioned to a cast or walking boot at that time. Continue to utilize Ultram as needed for pain. You reported intermittent dizziness as the cause of your fall. You were worked up extensively and found to have elevated heart rates on the monitor and your pacemaker interrogation. Continue to take metoprolol 100 mg twice daily as prior to hospitalization. We have added Cardizem 120 mg daily. Your heart rate has improved greatly as did your symptoms of dizziness. During the work-up for dizziness, you were found to have carotid stenosis (blockages in the carotid arteries in your neck). Ideally, you would be started on aspirin but we are holding off on this for now as we do not want to have you on both aspirin and Eliquis at your age given your risk of bleeding. Would continue Eliquis 2.5 mg twice daily X 30 days to help prevent blood clots in the lower extremities given this recent fracture and your nonweightbearing status. Consider transition from Eliquis to a baby aspirin at that time. You were on Eliquis longstanding prior to this hospitalization but given your frequent falls and your advanced age, I do not feel it safe for you to be on this medication long-term. You can follow-up with your publicity agent regarding this. You have a wound of your left leg. A CT scan was done showing no underlying abscess or bone infection. You are on antibiotics based on the bacteria growing in the wound. You need to complete Cipro 500 mg once daily (next dose due 08/01, to conclude on 08/07). I recommend follow-up wound care at the facility. Wound care recommendations: Clean with soap and water. Pat dry. Apply Aquacel Ag. Cover with Optifoam. Change every other day and as needed If wound does not heal/close within 7 to 10 days, follow-up with wound clinic. Follow-up with house physician within 24 to 48 hours Follow-up with orthopedics on 08/10 as scheduled Consider wound clinic follow-upas outlined above Follow-up with Dr. Milligan within 2 to 4 weeks Return to the emergency department for any new or worsening symptoms Addtl [employer] Provider Instructions: Nonweightbearing right lower extremity. Use walker, wheelchair to assist with ambulation. May be out of bed as tolerated with assistance. Keep splint and dressings on right foot at all times.Encourage wiggling her toes and bending Ice and elevation of her right ankle frequently throughout the day to help with swelling. Follow-up with Dr. Scott as scheduled on August 13 at 11 AM. Call [phone] To reschedule or change appointment if necessary. Pending Studies at Discharge: No Stand-Alone Forms: My [facility] Skilled Items Patient informed of condition?: Yes DNR: Yes Discharge Level of Care: Skilled Communicable Disease: No Discharge Prognosis: Stable Lines: None Urinary Catheter: No Medications and DC Order Prescriptions: New melatonin 3 mg Tablet 3 mg PO HS Qty: 30 RF: 0 ciprofloxacin HCl 500 mg Tablet 500 mg PO DAILY Qty: 7 RF: 0 tramadol 50 mg Tablet 50 mg PO Q4H PRN (Reason: pain) Qty: 30 RF: 0 diltiazem HCl 120 mg Capsule,Extended Release 24hr 120 mg PO QAM Qty: 30 RF: 0 diclofenac sodium [Voltaren Arthritis Pain] 1 % Gel 4 g EXT Q6 PRN (Reason: pain) Qty: 100 RF: 0 Continued allopurinol 100 mg tablet 100 mg PO QAM RF: 0 omeprazole 20 mg capsule,delayed release(DR/EC) 20 mg PO QAM RF: 0 Centrum Silver Women 8 mg iron-400 mcg-300 mcg Tablet 1 tab PO QAM RF: 0 PreserVision AREDS-2 [id number]-[id number]-mg Capsule 1 tab PO BID RF: 0 nitroglycerin [Nitrostat] 0.4 mg Tablet, Sublingual 0.4 mg sublingual DIRECTED PRN (Reason: Chest Pain) RF: 0 metoprolol succinate 100 mg tablet extended release 24 hr 100 mg PO BID RF: 0 sertraline 25 mg tablet 25 mg PO HS RF: 0 Eliquis 2.5 mg tablet 2.5 mg PO BID RF: 0 furosemide 20 mg tablet 20 mg PO Q OTHER DAY RF: 0 lorazepam 0.5 mg tablet 0.5 mg PO HS 3 Days Qty: 3 RF: 0 Discharge Orders: Discharge Order (Routine); Ordered 07/31/21 Ordered By: Radha Reyes Admission Data Admit Date/Time: 07/27/21 08:30 Attending Provider: Berhane Oscar Admit Provider: Aria Harper Primary Care Provider: Patti James Other Providers: Aria Harper ; Berhane West ; Shelly Archer [facility] ; [facility] Other Interventions: Discharge Summary Assessment (RN) Last Done: 07/31/21 13:11 Supervising Physician Co-Signing Physician Notes I personally examined the patient and verified all rodriguez points of history and exam, discussed case, and agree with decision making with Stephen Reyes PAC feels up to going to SNF vitals noted nad heent nc at mmm breathing unlabored no accessory muscles R leg wrapped for rehab, as above Coding Level of Care Code D/C DAY MANAGEMENT >30 MINS Diagnoses Fall W19.XXXA Encounter type: initial encounter Near syncope R55 Lisfranc fracture SunDown syndrome F05 Carotid stenosis I65.29 Venous stasis ulcer I83.009; L97.909 Atrial fibrillation I48.91 Atrial fibrillation type: unspecified Chronic kidney disease, stage IV (severe) N18.4 Depression F32.9 Depression Type: unspecified
== END 2021-07-31 13:16 | DRG 563 ==
LOC: 3E 00:35 → ED 00:35 → SUATTDRO 02:55 → 3E 06:49 → 2N 09:20 → SUATTDRO 07-27 08:30 → 2N 07-29 22:10

== ENCOUNTER 2022-05-12 15:06 | Inpatient (IN) ==
[2022-05-12] MEDS ORDERED: ACETAMINOPHEN 1,000 MG/100 ML VIAL IV STA (15:22)
--- NOTE | 2022-05-12 15:29 | Emergency Department Note ---
Impression & Plan Weakness, Anemia, Lower extremity pain, Coagulopathy, Hematoma of lower leg ED Provider Note NAME: JERRY LI AGE: 86 SEX: F : 1935 ARRIVES VIA: Ambulance INFORMANT: [Patient][ems, nursing] ED PROVIDER(S): [Jose Mcmahon MD] CHIEF COMPLAINT: Leg pain, needs rehab HISTORY OF PRESENT ILLNESS: The patient is an 86-year-old female who fell on the , 3 days ago. She suf fered hematomas to both legs, the left leg is quite a bit worse. She reported back to the ED yesterday for increasing pain and swelling. She refused inpatient rehab and only wanted outpatient care. Despite all attempts, outpatient care has not been arranged. There is no company able to take on a new patient. Patient's doctor did speak with her today and she is now at our hospital asking for inpatient rehab and care. She cannot function at home in her current condition. There has been no fever, no cough or congestion or shortness of breath. No abdominal pain. The leg pain is moderate to severity and worse on the left. PMHx/PSHx: See Below SOCIAL HISTORY: See Below. PHYSICAL EXAM: GENERAL: Patient is in no acute distress. HEENT: No acute trauma, normocephalic atraumatic, mucous membranes moist, no nasal congestion. NECK: No stridor, no adenopathy, no meningismus, trachea is midline. LUNGS: Clear to auscultation bilaterally, no wheeze, no rhonchi, breath sounds equal. HEART: Irregular, no obvious murmur, normal rate ABDOMEN: Soft, nontender, bowel sounds positive, no peritonitis. Left-sided colostomy noted. EXTREMITIES: No cyanosis. The patient has bilateral pedal edema worse on the left. There are contusions and hematomas to both lower legs, worse on the left. There is some bloody drainage noted to the left leg hematoma. No significant erythema to the lower extremities. NEUROLOGIC: Oriented x 3, no acute motor or sensory deficits, no focal weakness. SKIN: No jaundice, no diaphoresis. DIFFERENTIAL DIAGNOSIS: Hematoma, cellulitis, abscess, debilitation, anemia, electrolyte imbalance, rehab need, among others. EMERGENCY DEPARTMENT COURSE/PROCEDURES: Prior/Outside records reviewed: Previous ED visit, EMS records. MEDICAL DECISION MAKING: There is no leukocytosis. The patient is anemic. She has been anemic before but this value is below her baseline and likely a result of all her lower extremity hematomas. There is a normal platelet count. INR is elevated at 1.2 likely from her Eliquis use. Creatinine was elevated at 1.78, this appears baseline for the patient. There were a few subtle liver enzyme elevations. The TSH was elevated however, the T4 was normal. There was a negative COVID result. On exam, the patient had significantly large hematomas to her lower extrem ities. The hematoma on the left was leaking some bloody fluid. The patient was given IV Tylenol for pain, she is currently resting comfortably. The patient is in need of a hospital stay, possibly a blood transfusion if her hemoglobin were to drop further, she will eventually require rehab. I do think the hematomas are large enough that an orthopedic or surgical consult would be warranted, drainage may be required. I spoke with the patient and case management, the on-call hospitalist was con sulted. Patient is in no condition for discharge home. DISPOSITION: The patient's findings and presentation warrant a hospital stay. 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) Dizziness DJD (degenerative joint disease) Fall GI bleed Gouty arthritis Hemarthrosis Hip hematoma, left Left knee DJD Osteoarthritis Pacemaker Right rib fracture Systolic CHF, chronic Weakness Surgical History H/O: hysterectomy (03/28/12) Family History Other Family history non-contributory Social History Smoking Status: Never smoker Hx Alcohol Use: No Hx Substance Use: No Preferred Language: Samoan Communication Ability: Effective [employer] Required: No Beliefs That Will Affect Care: None marital status: / Current Living Situation: Alone Feels Safe at Home: Yes Assistive Devices: Walker Allergies Allergies Allergy/AdvReac Type Severity Reaction Status Date / Time Iodinated Contrast Media Allergy Severe Difficulty Verified 05/12/22 16:49 Breathing, Severe Hives cephalexin Allergy Unknown Unknown Verified 05/12/22 16:49 diphenhydramine Allergy Unknown DOES NOT Verified 05/12/22 16:49 REMEMBER mushroom Allergy Unknown Unknown Verified 05/12/22 16:49 potassium chloride Allergy Unknown unknown Verified 05/12/22 16:49 Sulfa (Sulfonamide Allergy Unknown Unknown Verified 05/12/22 16:49 Antibiotics) Home Meds Home Medications Medication Instructions Recorded Confirmed allopurinol 100 mg tablet 100 mg PO QAM 06/20/19 05/12/22 multivit with 1 tab PO QAM 06/20/19 05/12/22 [id number]-OB-lutein 8 mg iron-400 mcg-300 mcg tablet (Centrum Silver Women) nitroglycerin 0.4 mg sublingual 0.4 mg sublingual DIRECTED PRN 06/20/19 05/12/22 tablet (Nitrostat) Chest Pain omeprazole 20 mg capsule,delayed 20 mg PO QAM 06/20/19 05/12/22 release vit C 250 mg-vit E 90 mg-zinc 40 1 tab PO BID 06/20/19 05/12/22 mg-copper 1 [id number] capsule (PreserVision AREDS-2) apixaban 2.5 mg tablet (Eliquis) 2.5 mg PO BID 10/06/19 05/12/22 furosemide 20 mg tablet 20 mg PO 2XWK 10/06/19 05/12/22 sertraline 25 mg tablet 25 mg PO HS 10/06/19 05/12/22 metoprolol succinate 50 mg 50 mg PO BID 05/09/22 05/12/22 tablet,extended release 24 hr Previous Rx's Medication Instructions Recorded lorazepam 0.5 mg tablet 0.5 mg PO HS 3 days #3 tabs 10/10/19 diclofenac sodium 1 % topical gel 4 g EXT Q6 PRN pain #100 grams 07/31/21 (Voltaren Arthritis Pain) diltiazem HCl 120 mg 120 mg PO QAM #30 caps 07/31/21 capsule,extended release 24 hr melatonin 3 mg tablet 3 mg PO HS #30 tabs 07/31/21 Results & Data (ED) Vital Signs Vital Signs - 24 hr 05/12/22 15:21 05/12/22 15:21 05/12/22 15:26 Temperature 37.3 C Temperature Source Oral Oral Pulse Rate 99 H 98 H Pulse Rate from SpO2 Sensor 99 H Respiratory Rate 16 16 Respiratory Effort / Characteristics Non-Labored Respiratory Depth Normal Blood Pressure 128/74 Blood Pressure Mean 92 Blood Pressure Position Sitting Pulse Oximetry 98 99 Oxygen Delivery Method Room Air Sepsis Recent Fever Within 48 Hours No Sepsis New/Unexplained Change in Mental Status No Sepsis Action Taken by Nursing No Action Required 05/12/22 15:30 05/12/22 15:30 05/12/22 15:40 Temperature Temperature Source Pulse Rate 95 H 101 H Pulse Rate from SpO2 Sensor 96 H 101 H Respiratory Rate 16 22 Respiratory Effort / Characteristics Respiratory Depth Blood Pressure 137/75 Blood Pressure Mean 95 Blood Pressure Position Pulse Oximetry 99 99 Oxygen Delivery Method Sepsis Recent Fever Within 48 Hours Sepsis New/Unexplained Change in Mental Status Sepsis Action Taken by Nursing 05/12/22 15:50 05/12/22 16:00 05/12/22 16:00 Temperature Temperature Source Pulse Rate 98 H 93 H Pulse Rate from SpO2 Sensor 99 H 93 H Respiratory Rate 19 20 Respiratory Effort / Characteristics Respiratory Depth Blood Pressure 140/89 Blood Pressure Mean 106 Blood Pressure Position Pulse Oximetry 99 99 Oxygen Delivery Method Sepsis Recent Fever Within 48 Hours Sepsis New/Unexplained Change in Mental Status Sepsis Action Taken by Nursing 05/12/22 16:10 05/12/22 16:20 05/12/22 16:30 Temperature Temperature Source Pulse Rate 88 91 H Pulse Rate from SpO2 Sensor 92 H 86 Respiratory Rate 15 17 Respiratory Effort / Characteristics Respiratory Depth Blood Pressure 143/81 H Blood Pressure Mean 101 Blood Pressure Position Pulse Oximetry 97 92 Oxygen Delivery Method Sepsis Recent Fever Within 48 Hours Sepsis New/Unexplained Change in Mental Status Sepsis Action Taken by Nursing 05/12/22 16:30 05/12/22 16:40 Temperature Temperature Source Pulse Rate 91 H 94 H Pulse Rate from SpO2 Sensor 98 H Respiratory Rate 21 17 Respiratory Effort / Characteristics Respiratory Depth Blood Pressure Blood Pressure Mean Blood Pressure Position Pulse Oximetry 95 Oxygen Delivery Method Sepsis Recent Fever Within 48 Hours Sepsis New/Unexplained Change in Mental Status Sepsis Action Taken by Detention Medications Current Medication List: was personally reviewed by me Laboratory Data Attestation: I reviewed the patient's lab results. 05/12/22 19:51 05/12/22 17:00 Lab Results 05/12/22 05/12/22 05/12/22 Range/Units 15:40 15:40 15:40 WBC 10.58 (4.8-10.8) K/ul RBC 2.49 L (3.93-5.22) M/uL Hgb 7.4 L (12.0-16.0) g/dl Hct 22.2 L (34.1-44.9) % MCV 89.2 (80.0-100.0) fL MCH 29.7 (25.0-34.0) pg MCHC 33.3 (32.0-36.0) g/dL RDW Std Deviation 46.7 H (36.4-46.3) fL RDW Coeff of Thee 14.5 (11.5-14.5) % Plt Count 206 (130-400) K/uL MPV 10.2 (9.4-12.3) fL Immature Gran % (Auto) 0.9 % Neut % (Auto) 73.7 % Lymph % (Auto) 7.0 % Waldo % (Auto) 17.9 % Eos % (Auto) 0.2 % Baso % (Auto) 0.3 % Neut # (Auto) 7.81 H (1.4-6.5) K/uL Lymph # (Auto) 0.74 L (1.2-3.4) K/uL Waldo # (Auto) 1.89 H (0.24-0.82) K/uL Eos # (Auto) 0.02 (0-0.50) K/uL Baso # (Auto) 0.03 (0-0.2) K/uL Immature Gran # (Auto) 0.09 H (0.00-0.02) K/uL Polychromasia 1+ Hypochromasia Present PT Cancelled INR Cancelled APTT Cancelled PTT Ratio Cancelled Sodium 136 (136-145) mmol/L Potassium TNP Chloride 100 (98-107) mmol/L Carbon Dioxide 28 (21-32) mmol/L Anion Gap 8 (3-11) BUN 39 H (6-23) mg/dl Creatinine 1.78 H (0.6-1.2) mg/dl Est Cr Clr Drug Dosing Not Reportable Est GFR ( Amer) 29.0 ml/min Est GFR (Non-Af Amer) 25.0 ml/min BUN/Creatinine Ratio 21.9 H (10-20) Glucose 121 H (70-99(Fasting)) mg/dl Calcium 9.0 (8.5-10.1) mg/dl Magnesium 2.2 (1.7-2.4) mg/dl Total Bilirubin 1.1 H (0.2-1.0) mg/dl AST TNP ALT 14 (7-52) U/L Alkaline Phosphatase 130 H (34-104) U/L Total Protein 7.4 (6.0-8.3) gm/dl Albumin 3.8 (3.4-5.0) gm/dl Globulin 3.6 (2.5-4.0) gm/dl Albumin/Globulin Ratio 1.1 (0.9-2) TSH (0.300-4.500) uIu/ml Free T4 (0.61-1.60) ng/dl SARS-CoV-2, RNA, NAAT (NEGATIVE) 05/12/22 05/12/22 Range/Units 15:40 15:40 WBC (4.8-10.8) K/ul RBC (3.93-5.22) M/uL Hgb (12.0-16.0) g/dl Hct (34.1-44.9) % MCV (80.0-100.0) fL MCH (25.0-34.0) pg MCHC (32.0-36.0) g/dL RDW Std Deviation (36.4-46.3) fL RDW Coeff of Thee (11.5-14.5) % Plt Count (130-400) K/uL MPV (9.4-12.3) fL Immature Gran % (Auto) % Neut % (Auto) % Lymph % (Auto) % Waldo % (Auto) % Eos % (Auto) % Baso % (Auto) % Neut # (Auto) (1.4-6.5) K/uL Lymph # (Auto) (1.2-3.4) K/uL Waldo # (Auto) (0.24-0.82) K/uL Eos # (Auto) (0-0.50) K/uL Baso # (Auto) (0-0.2) K/uL Immature Gran # (Auto) (0.00-0.02) K/uL Polychromasia Hypochromasia PT INR APTT PTT Ratio Sodium (136-145) mmol/L Potassium Chloride (98-107) mmol/L Carbon Dioxide (21-32) mmol/L Anion Gap (3-11) BUN (6-23) mg/dl Creatinine (0.6-1.2) mg/dl Est Cr Clr Drug Dosing Est GFR ( Amer) ml/min Est GFR (Non-Af Amer) ml/min BUN/Creatinine Ratio (10-20) Glucose (70-99(Fasting)) mg/dl Calcium (8.5-10.1) mg/dl Magnesium (1.7-2.4) mg/dl Total Bilirubin (0.2-1.0) mg/dl AST ALT (7-52) U/L Alkaline Phosphatase (34-104) U/L Total Protein (6.0-8.3) gm/dl Albumin (3.4-5.0) gm/dl Globulin (2.5-4.0) gm/dl Albumin/Globulin Ratio (0.9-2) TSH 4.661 H (0.300-4.500) uIu/ml Free T4 1.32 (0.61-1.60) ng/dl SARS-CoV-2, RNA, NAAT NEGATIVE (NEGATIVE) Administered Medications Lactated Ringer's (Lr) 1,000 mls @ 80 mls/hr IV .[id number] [facility] Stop: 05/13/22 07:56 Last Admin: 05/12/22 21:55 Dose: 80 mls/hr Documented By: DMAngelina Lorazepam (Lorazepam 0.5 Mg Tab) 0.5 mg PO HS [facility] Stop: 06/11/22 20:59 Last Admin: 05/12/22 22:08 Dose: 0.5 mg Documented By: DMM Melatonin (Melatonin 3 Mg Tab) 3 mg PO HS [facility] Stop: 06/11/22 20:59 Last Admin: 05/12/22 22:08 Dose: 3 mg Documented By: DMM Metoprolol Succinate (Metoprolol Succ 50mg Ext Rel Tab) 50 mg PO BID [facility] Stop: 06/11/22 20:59 Last Admin: 05/12/22 22:07 Dose: 50 mg Documented By: ABBY Sertraline HCl (Sertraline Hcl 50 Mg Tablet) 25 mg PO HS [facility] Stop: 06/11/22 20:59 Last Admin: 05/12/22 22:08 Dose: 25 mg Documented By: ABBY Discontinued Medications Acetaminophen (Ofirmev) 1,000 mg in 100 mls @ 400 mls/hr IV NOW STA Stop: 05/12/22 15:36 Last Infusion: 05/12/22 16:04 Dose: 0 mls/hr Documented By: Admin: 05/12/22 15:49 Dose: 400 mls/hr Documented By: MARYANNE Discharge Plan Visit Data Chief Complaint: Referred by Doctor Stated Complaint: S/P FALL, NEED OF PLACEMENT ED Provider: Jose Mcmahon Discharge Problem: Weakness, Anemia, Lower extremity pain, Coagulopathy, Hematoma of lower leg Patient Disposition: Admitted As Inpatient Condition: Fair Discharge Instructions Interventions: ED Discharge Assessment Last Done: 05/12/22 19:28
[2022-05-12 16:02] LABS: Basophils # (auto) 0.03 K/uL (0-0.2); Basophils % (auto) 0.3 %; Eosinophils # (auto) 0.02 K/uL (0-0.50); Eosinophils % (auto) 0.2 %; Hematocrit (blood only) 22.2 % (34.1-44.9); Hemoglobin 7.4 g/dl (12.0-16.0); Immature Granulocytes # (auto) 0.09 K/uL (0.00-0.02); Immature Granulocytes % (auto) 0.9 %; Lymphocytes # (auto) 0.74 K/uL (1.2-3.4); Mean Corpuscular Hemoglobin 29.7 pg (25.0-34.0); Mean Corpuscular Hgb Conc 33.3 g/dL (32.0-36.0); Mean Corpuscular Volume 89.2 fL (80.0-100.0); Mean Platelet Volume 10.2 fL (9.4-12.3); Monocytes # (auto) 1.89 K/uL (0.24-0.82); Monocytes % (auto) 17.9 %; Neutrophils # (auto) 7.81 K/uL (1.4-6.5); Neutrophils % (auto) 73.7 %; Platelet Count 206 K/uL (130-400); RDW Coefficient of Variation 14.5 % (11.5-14.5); RDW Standard Deviation 46.7 fL (36.4-46.3); Red Blood Count 2.49 M/uL (3.93-5.22); White Blood Count 10.58 K/ul (4.8-10.8)
[2022-05-12 16:20] LABS: Alanine Aminotransferase 14 U/L (7-52); Albumin Globulin Ratio 1.1 (0.9-2); Albumin Level 3.8 gm/dl (3.4-5.0); Alkaline Phosphatase 130 U/L (34-104); Anion Gap 8 (3-11); BUN Creatinine Ratio 21.9 (10-20); Bilirubin,Total 1.1 mg/dl (0.2-1.0); Blood Urea Nitrogen 39 mg/dl (6-23); Carbon Dioxide 28 mmol/L (21-32); Chloride 100 mmol/L (98-107); Globulin 3.6 gm/dl (2.5-4.0); Glucose 121 mg/dl (70-99(Fasting)); Magnesium 2.2 mg/dl (1.7-2.4); Sodium 136 mmol/L (136-145); Total Protein 7.4 gm/dl (6.0-8.3)
--- NOTE | 2022-05-12 16:25 | History & Physical Report ---
Date of Service May 12, 2022 Assessment & Plan (1) Hematoma of left lower leg: Plan: Anemia Suspect due to continued bleeding from left lower extremity hematoma Hemoglobin on admission 7.4, prior was 9.6. Suspect left lower extremity hematoma as source of bleeding. General surgery consulted for potential evacuation and treatment Hemoglobin trended every 6 hours Transfuse for hemoglobin less than 7 Currently hemodynamically stable, BP normotensive and pulse 99 - Iron studies pending Frequent falls Patient was alone, previously used a wheeled walker PT/OT consulted. CM consulted. Previously recommended for placement which patient is now agreeable, would prefer encompass Fall precautions Patient has had no additional falls since returning home this past week Carotid stenosis 50% right, left 50-70%. No hemodynamically significant stenosis Patient not on aspirin therapy due to hematomas and bleeding, has been on Eliquis this is been held in the setting of anemia with hemoglobin near 7 Once hematomas are stable, can resume Eliquis +/- aspirin Atrial fibrillation Continue metoprolol Continue diltiazem Eliquis held due to hematomas and anemia. Patient last took this approximately 9 days ago CKD Baseline 1.31.8 Admitting creatinine 1.78, at baseline Renally adjust medications for kidney function Depression Continue sertraline 25 mg p.o. nightly S/p pacemaker placement Patient reports this was more than 10 years ago, thinks was due to slow heart rate. No problems since. DVT prophylaxis: Pharmacal prophylaxis deferred due to active bleeding, SCDs not able to be used due to hematomas on legs. Follow clinically for signs of DVT, resume PPx as soon as able Disposition: Telemetry for active bleeding/anemia Diet: N.p.o. pending surgical eval for hematomas CODE STATUS: DNR/DNI discussed with patient (2) Anemia: (3) Atrial fibrillation: (4) Chronic kidney disease, stage IV (severe): (5) Atrial fibrillation: (6) Systolic CHF, chronic: (7) Acute on chronic systolic (congestive) heart failure: (8) Pacemaker: History of Present Illness Primary Care Provider: Patti James MD Mishel is an 86-year-old female with past medical history of A. fib on Eliquis, CHF, anemia, pacemaker placement, and arthritis who presents to the emergency department on recommendation of her primary care provider who reportedly saw patient in her home and found patient with large hematomas, difficulty ambulating, and who has not been able to have home health services set up for care. She had previously refused discharge to rehab/SNFWas discharged home to hopefully get set up with [facility], however no services have been available with no local companies able to take on new patients. Patient had a fall on the and her hematomas on both legs continue to worsen. Left hematoma is oozing and at high risk of infection, although no erythema has been noted to date. Patient is continued on Eliquis for A. fib stroke prophylaxis. Patient reports she is not able to function with her legs the way they are at home, and is now agreeable to admission for additional care and placement. Has also been re commended for surgical evaluation of hematomas with potential drainage. On eliquis fell on Hematomas to both legs Back yesterday with increasing hematoma and more pain Told woaurelio dneed rehab, refused Homecare unable to take her and was denied on multiple attempts PCP went to her house an dcalled EMS for care through the hospital Pt now consents to rehab Bilat lower L>R extremities. Left draining fluid and blood. No active cellulitis Hgb 7.4 Ortho: Needs to see for hematomas Patient seen at bedside. She reports that she has not been able to function at home and since returning to home has been weaker, unable to ambulate, and feels globally washed out. Her left leg is continued to ooze although has not had any sudden gush of bleeding. No other bleeding other than her left leg, continues to have a large hematoma on her right leg which is not as bad. She has not had shortness of breath, dizziness, syncope, presyncope, or chest pain. She has not felt her heart racing. She is agreeable to rehab, risk/benefits of blood were also discussed and patient consented to blood should her levels fall below 7. Otherwise patient confirms history as noted above Medical History: Reviewed Medications: Reviewed Surgical History: Reviewed Allergies: Reviewed Social History: No tobacco/etoh Code Status: DNR Allergies Allergy/AdvReac Type Severity Reaction Status Date / Time Iodinated Contrast Media Allergy Severe Difficulty Verified 05/09/22 18:39 Breathing, Severe Hives cephalexin Allergy Unknown Unknown Verified 05/09/22 18:39 diphenhydramine Allergy Unknown DOES NOT Verified 05/09/22 18:39 REMEMBER mushroom Allergy Unknown Unknown Verified 05/09/22 18:39 potassium chloride Allergy Unknown unknown Verified 05/09/22 18:39 Sulfa (Sulfonamide Allergy Unknown Unknown Verified 05/09/22 18:39 Antibiotics) Home Medications Medication Instructions Recorded Confirmed Type allopurinol 100 mg tablet 100 mg PO QAM 06/20/19 05/09/22 History multivit with 1 tab PO QAM 06/20/19 05/09/22 History rqaspkyt-nhju-DH-lutein 8 mg iron-400 mcg-300 mcg tablet (Centrum Silver Women) nitroglycerin 0.4 mg sublingual 0.4 mg sublingual DIRECTED PRN 06/20/19 05/09/22 History tablet (Nitrostat) Chest Pain omeprazole 20 mg capsule,delayed 20 mg PO QAM 06/20/19 05/09/22 History release vit C 250 mg-vit E 90 mg-zinc 40 1 tab PO BID 06/20/19 05/09/22 History mg-copper 1 [id number]-oaibsw-ybwrqs capsule (PreserVision AREDS-2) apixaban 2.5 mg tablet (Eliquis) 2.5 mg PO BID 10/06/19 05/09/22 History furosemide 20 mg tablet 20 mg PO 2XWK 10/06/19 05/09/22 History sertraline 25 mg tablet 25 mg PO HS 10/06/19 05/09/22 History lorazepam 0.5 mg tablet 0.5 mg PO HS 3 days #3 tabs 10/10/19 05/09/22 Rx diclofenac sodium 1 % topical gel 4 g EXT Q6 PRN pain #100 grams 07/31/2105/09 Rx (Voltaren Arthritis Pain) diltiazem HCl 120 mg 120 mg PO QAM #30 caps 07/31/21 05/09/22 Rx capsule,extended release 24 hr melatonin 3 mg tablet 3 mg PO HS #30 tabs 07/31/21 05/09/22 Rx metoprolol succinate 50 mg 50 mg PO BID 05/09/22 05/09/22 History tablet,extended release 24 hr 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) Dizziness DJD (degenerative joint disease) Fall GI bleed Gouty arthritis Hemarthrosis Hip hematoma, left Left knee DJD Osteoarthritis Pacemaker Right rib fracture Systolic CHF, chronic Weakness Surgical History H/O: hysterectomy (03/28/12) Family History Other Family history non-contributory Social History Smoking Status: Never smoker Hx Alcohol Use: No Hx Substance Use: No Preferred Language: Bangladeshi Communication Ability: Effective [employer] Required: No Beliefs That Will Affect Care: None marital status: / Current Living Situation: Alone Feels Safe at Home: Yes Assistive Devices: Walker Review of Systems Review of Systems: All systems reviewed & are unremarkable except as noted in HPI & below Physical Exam Physical Exam: General: A&Ox3. NAD. Cooperative. HEENT: Atraumatic, normocephalic. Pulm: CTAB A&P. -wheezes, -rales, -rhonchi. Symmetrical chest rise. No increased work of breathing. No respiratory distress. Cardiac: Irregularly irregular, mildly tachycardic, soft systolic murmur. Radial pulses intact and symmetrical. Abdominal: Nontender, nondistended, soft. BS present. Extremities: Left lower extremity with anterior holland large hematoma draining dark red blood. Sensation soft touch is intact in feet bilaterally. Right lower extremity anterior holland with closed hematoma not actively draining. Neither leg with any surrounding warmth/erythema Results & Data Results & Data ([facility]) Vital Signs (Past 12 Hours) Vital Signs Temp Pulse Resp BP Pulse Ox O2 Del Method 05/12/22 15:21 37.3 C 99 H 16 128/74 98 Room Air PG Care Time/CCT Total # of Minutes Spent Total Time Spent with Patient: Total time spent is greater than 50% in coordination of care (as documented) at patient's floor/unit and/or counseling patient: Coding Level of Care Code 85862 INT INP/OBS CARE 2/55MIN Diagnoses Hematoma of left lower leg S80.12XA Anemia D64.9 Atrial fibrillation I48.91 Atrial fibrillation type: unspecified Chronic kidney disease, stage IV (severe) N18.4 Atrial fibrillation I48.91 Systolic CHF, chronic I50.22 Acute on chronic systolic (congestive) heart failure I50.23 Pacemaker Z95.0 (1) Atrial fibrillation Atrial fibrillation type: unspecified Qualified Code(s): I48.91 - Unspecified atrial fibrillation
[2022-05-12 16:27] LABS: Hypochromasia Present; Polychromasia 1+
[2022-05-12 16:33] LABS: Thyroid Stimulating Hormone 4.661 uIu/ml (0.300-4.500)
[2022-05-12 17:10] LABS: T4 Free Thyroxine 1.32 ng/dl (0.61-1.60)
[2022-05-12 17:37] LABS: Potassium 4.1 mmol/L (3.5-5.1)
[2022-05-12 17:51] LABS: INR 1.2 (0.9-1.1); Partial Thromboplastin Ratio 1.1; Partial Thromboplastin Time 31.1 Seconds (21.0-31.0); Prothrombin Time 12.8 Seconds (9.0-12.0)
[2022-05-12] MEDS ORDERED: LACTATED RINGER'S 1,000 ML IV SCH (19:27)
--- NOTE | 2022-05-12 19:36 | Surgery Consultation ---
Date of Consultation May 12, 2022 Assessment & Plan (1) Hematoma of left lower leg: The patient has been admitted on the hospitalist service. Concerning patient's lower extremity hematomas we recommend proceeding as follows: The patient takes Eliquis as an outpatient. She believes that she has not taken in 3 days. Would recommend continuing to hold this medication Continue to follow serial hemoglobin and hematocrits as you are doing with transfusion as clinically indicated At the present time there is no role for surgical drainage of the patient's hematomas particularly in the setting of recent recent Eliquis use. There is no evidence of compartment syndrome as patient has palpable pulses she does not have any numbness or tingling of the lower extremities and there is no pain with passive or active range of motion of her ankle. Patient is also afebrile with no leukocytosis which argues against the possibility that the hematomas are infected.At the present time we would recommend local wound care with loose bandages placed around the patient's hematomas. The patient be followed closely for the need for surgical drainage should this arise. Further care as directed by the primary service (2) Hematoma of right lower leg: History of Present Illness History of Present Illness This is an 86-year-old female who presented to the emergency department for the third time since 05/09/2022. During the patient's initial visit on 05/09/2022 she presented secondary to a fall. During this visit the patient was noted to have a contusion to the left anterior holland. In addition she had a CT scan of the head that was negative for acute intracranial hemorrhage or skull fracture. An x-ray of the left knee did not show any acute injuries. Patient also had a left tib/fib x-ray that did not show any evidence of fracture. The patient was discharged home from the emergency department with instructions to apply an Paulino bandage to patient's left lower extremity hematoma. The patient was again discharged from the emergency department. After this visit was instructed to the patient that she not take her Eliquis for approximately 1 week. The patient represented to the emergency department today at the recommendation of her primary care physician as the patient was noted to have ambulatory dysfunction along with the large hematomas of her left lower and right lower extremity as noted previously. Patient notes that she has been unable to have home health services arranged and was felt the patient would require rehab or detention facility for ongoing care. The patient reports that she fell several days ago as noted above by the emergency department visits and was instructed to hold her Eliquis. She believes that she has not taken her Eliquis in approximately 3 days. She was unable to delineate how she fell but notes that since she has fallen she has had a great deal of difficulty caring for self. At the time of my interview she did not have any abdominal pain. She denied any nausea or vomiting. She denied any fevers, shakes, or chills. She does note that her legs are more swollen and somewhat painful. The patient represented to the emergency department on 05/11/2022 secondary to worsening swelling of the lower extremities. During this visit the patient was noted to have large hematomas to both legs with the left being worse than the right. Since arrival to the emergency department the patient has had labs with a CBC revealed white blood cell count was normal. The patient's hemoglobin and hematocrit are 7.4 and 22.2. (Review of patient's records show that her hemoglobin was 9.63 days ago) the patient's platelet count is noted to be normal. Chemistry profile showed sodium and potassium are normal. Her BUN and creatinine are 39 and 1.7. (Review of records show the patient's baseline creatinine runs between 1.3 and 1.8) coagulation studies show the INR is 1.2. A COVID test was performed and was negative. At the time of my interview the patient was resting comfortably in bed and she was in no distress. Allergies Allergy/AdvReac Type Severity Reaction Status Date / Time Iodinated Contrast Media Allergy Severe Difficulty Verified 05/12/22 16:49 Breathing, Severe Hives cephalexin Allergy Unknown Unknown Verified 05/12/22 16:49 diphenhydramine Allergy Unknown DOES NOT Verified 05/12/22 16:49 REMEMBER mushroom Allergy Unknown Unknown Verified 05/12/22 16:49 potassium chloride Allergy Unknown unknown Verified 05/12/22 16:49 Sulfa (Sulfonamide Allergy Unknown Unknown Verified 05/12/22 16:49 Antibiotics) Home Medications Medication Instructions Recorded Confirmed Type allopurinol 100 mg tablet 100 mg PO QAM 06/20/19 05/12/22 History multivit with 1 tab PO QAM 06/20/19 05/12/22 History cjhxqzbb-iwez-FQ-lutein 8 mg iron-400 mcg-300 mcg tablet (Centrum Silver Women) nitroglycerin 0.4 mg sublingual 0.4 mg sublingual DIRECTED PRN 06/20/19 05/12/22 History tablet (Nitrostat) Chest Pain omeprazole 20 mg capsule,delayed 20 mg PO QAM 06/20/19 05/12/22 History release vit C 250 mg-vit E 90 mg-zinc 40 1 tab PO BID 06/20/19 05/12/22 History mg-copper 1 [id number] capsule (PreserVision AREDS-2) apixaban 2.5 mg tablet (Eliquis) 2.5 mg PO BID 10/06/19 05/12/22 History furosemide 20 mg tablet 20 mg PO 2XWK 10/06/19 05/12/22 History sertraline 25 mg tablet 25 mg PO HS 10/06/19 05/12/22 History lorazepam 0.5 mg tablet 0.5 mg PO HS 3 days #3 tabs 10/10/19 05/12/22 Rx diclofenac sodium 1 % topical gel 4 g EXT Q6 PRN pain #100 grams 07/31/21 05/12/22 Rx (Voltaren Arthritis Pain) diltiazem HCl 120 mg 120 mg PO QAM #30 caps 07/31/21 05/12/22 Rx capsule,extended release 24 hr melatonin 3 mg tablet 3 mg PO HS #30 tabs 07/31/21 05/12/22 Rx metoprolol succinate 50 mg 50 mg PO BID 05/09/22 05/12/22 History tablet,extended release 24 hr Patient History Medical History Abnormal stress test Ambulatory dysfunction Atrial fibrillation Atrial fibrillation (04/24/13) Bilateral leg edema Chronic kidney disease, stage IV (severe) Closed fracture of right distal fibula Depression Disc displacement, 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) Dizziness DJD (degenerative joint disease) Fall GI bleed Gouty arthritis Hemarthrosis Hip hematoma, left Left knee DJD Osteoarthritis Pacemaker Right rib fracture Systolic CHF, chronic Weakness Surgical History H/O: hysterectomy (03/28/12) Family History Other Family history non-contributory Social History Smoking Status: Never smoker Hx Alcohol Use: No Hx Substance Use: No Preferred Language: Cameroonian Communication Ability: Effective 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 Required: No Beliefs That Will Affect Care: None marital status: / Current Living Situation: Alone Feels Safe at Home: Yes Safety Concerns: Feels Safe At This Time Assistive Devices: Glasses and Walker Assistive Devices Comment: chair lift Review of Systems Constitutional: no fever and no chills Eyes: + corrective lenses Ear, Nose, Mouth, Throat: no ear pain Respiratory: no cough and no dyspnea Cardiovascular: no chest pain Gastrointestinal: no abdominal pain, no nausea and no vomiting Genitourinary: no dysuria Musculoskeletal: no back pain Integumentary: no rash Neurologic: + generalized weakness Physical Exam Constitutional: well developed and well nourished; no acute distress Eyes: no conjunctival abnormality Wears glasses ENMT: Ears: no hearing impairment and no external ear abnormality Mouth: no oropharynx abnormality Neck: trachea midline Respiratory: normal respiratory effort; no respiratory distress and no labored breathing Cardiovascular: Rate/Rhythm: regular rate and regular rhythm Gastrointestinal (Abdomen): Soft and nonrigid. There is no tenderness to palpation Musculoskeletal: Patient's lower extremities were examined bilaterally. The patient had a large hematoma encompassing almost the entire aspect of the anterior lateral aspect of the left holland. On this extremity there is a small amount of serous drainage but no open areas of bleeding she had a smaller hematoma on the anterior lateral aspect of her right holland. On this side there were no open areas of bleeding. The patient's dorsalis pedis pulses were palpable bilaterally with the right being greater than the left. There is no pain with active or passive dorsi or plantarflexion of the feet. The hematomas in question were both soft and non-tense. There is also no areas of tense muscle compartments by palpation on the lower extremities bilaterally Skin: no rashes Neurologic: moves all extremities Psychiatric: A+Ox3, euthymic affect Results & Data ([place]) Vital Signs (Past 12 Hours) Vital Signs Temp Pulse Resp BP Pulse Ox O2 Del Method 05/12/22 18:30 92 H 21 95 05/12/22 18:30 146/79 H 05/12/22 18:20 104 H 21 05/12/22 18:10 88 20 96 05/12/22 18:00 89 22 98 05/12/22 18:00 151/80 H 05/12/22 17:50 94 H 19 97 05/12/22 17:40 86 26 H 96 05/12/22 17:30 95 H 19 96 05/12/22 17:30 150/83 H 05/12/22 17:20 96 H 19 98 05/12/22 17:10 90 17 99 05/12/22 17:00 93 H 18 98 05/12/22 17:00 155/92 H 05/12/22 16:50 95 H 20 05/12/22 16:40 94 H 17 05/12/22 16:30 91 H 21 95 05/12/22 16:30 143/81 H 05/12/22 16:20 91 H 17 92 05/12/22 16:10 88 15 97 05/12/22 16:00 93 H 20 99 05/12/22 16:00 140/89 05/12/22 15:50 98 H 19 99 05/12/22 15:40 101 H 22 99 05/12/22 15:30 95 H 16 99 05/12/22 15:30 137/75 05/12/22 15:26 98 H 16 99 05/12/22 15:21 37.3 C 99 H 16 128/74 98 Room Air PG Care Time/CCT Total # of Minutes Spent Total Time Spent with Patient: Total time spent is greater than 50% in coordination of care (as documented) at patient's floor/unit and/or counseling patient: Coding Level of Care Code 94591 INT INP/OBS CARE 75MIN Diagnoses Hematoma of left lower leg S80.12XA Hematoma of right lower leg S80.11XA
[2022-05-12] MEDS ORDERED: SODIUM CHLORIDE 0.9% 250 ML IV PRN (21:12)
[2022-05-12 21:17] LABS: Hematocrit (blood only) 20.9 % (34.1-44.9)
[2022-05-12] MEDS: METOPROLOL SUCC 50MG EXT REL TAB PO SCH (22:07)
[2022-05-12] MEDS: MELATONIN 3 MG TAB PO SCH (22:08)
[2022-05-12] MEDS: LORazepam 0.5 MG TAB PO SCH (22:08)
[2022-05-12] MEDS: SERTRALINE HCL 50 MG TABLET PO SCH (22:08)
[2022-05-13 05:14] LABS: Basophils # (auto) 0.02 K/uL (0-0.2); Basophils % (auto) 0.3 %; Eosinophils # (auto) 0.07 K/uL (0-0.50); Eosinophils % (auto) 1.1 %; Hematocrit (blood only) 22.1 % (34.1-44.9); Hemoglobin 7.7 g/dl (12.0-16.0); Immature Granulocytes # (auto) 0.05 K/uL (0.00-0.02); Immature Granulocytes % (auto) 0.8 %; Lymphocytes # (auto) 0.48 K/uL (1.2-3.4); Lymphocytes % (auto) 7.5 %; Mean Corpuscular Hemoglobin 29.6 pg (25.0-34.0); Mean Corpuscular Hgb Conc 34.8 g/dL (32.0-36.0); Monocytes % (auto) 20.2 %; Neutrophils % (auto) 70.1 %; Platelet Count 172 K/uL (130-400); RDW Coefficient of Variation 14.5 % (11.5-14.5); RDW Standard Deviation 44.7 fL (36.4-46.3); White Blood Count 6.42 K/ul (4.8-10.8)
[2022-05-13 05:32] LABS: Anion Gap 8 (3-11); BUN Creatinine Ratio 21.8 (10-20); Blood Urea Nitrogen 37 mg/dl (6-23); Calcium 8.6 mg/dl (8.5-10.1); Carbon Dioxide 26 mmol/L (21-32); Chloride 103 mmol/L (98-107); Est GFR (African American) 30.7 ml/min; Est GFR (Non-African American) 26.5 ml/min; Glucose 112 mg/dl (70-99(Fasting)); Potassium 3.9 mmol/L (3.5-5.1); Sodium 137 mmol/L (136-145)
[2022-05-13 06:33] LABS: RBC Morphology Unremarkable
[2022-05-13] MEDS: METOPROLOL SUCC 50MG EXT REL TAB PO SCH ×2 (07:50→21:22)
[2022-05-13] MEDS: dilTIAZem HCL 120 MG CAPCR PO SCH (07:50)
[2022-05-13] MEDS: PANTOprazole 40 MG TAB PO SCH (07:51)
[2022-05-13] MEDS: allopurinoL 100 MG TAB PO SCH (07:51)
[2022-05-13] MEDS: ACETAMINOPHEN 325 MG TAB PO PRN ×2 (07:56→22:07)
--- NOTE | 2022-05-13 08:43 | Hospitalist Progress Note ---
Date of Service May 13, 2022 Assessment & Plan (1) Hematoma of left lower leg: Plan: Hematoma of Left Lower Leg/Anemia/Falls -- suspect Hematoma 2nd to falls, anemia from bleeding from such. Denied any lightheadedness/dizziness prior to falls and tripped on a step through threshold in door * Eliquis on hold (has been on hold ~10 days currently) * Surgery on consult -- continue to hold eliquis * Wound RN consult -- see imaging/recs * Per discussion with general surgery/concerns for needing I&D evacuation for healing -- deferring need for intervention currently but they will follow along to monitor for any need/infection Hgb stable 7.7 (7.0 last evening, 7.4 on admit) -- baseline appears in the 10-12s Checking iron studies/B12 given falls/folate as well Transfuse PRBC for Hgb <7 or if hemodynamically unstable PT/OT consulted -- likely will need some degree of rehab, official consults pending. Fall precautions Continue to monitor Carotid stenosis 50% right, left 50-70%. No hemodynamically significant stenosis Patient not on aspirin therapy due to hematomas and bleeding, has been on Eliquis this is been held in the setting of anemia with hemoglobin near 7 Once hematomas are stable, can resume Eliquis +/- aspirin -- prior notes HAASBLED score 3, CHADsvasc 3 -- consider continued discussions/discussion w/ cards (she states it has been a while since seen) Atrial fibrillation Continue metoprolol 50mg BID, diltiazem 120mg daily Eliquis on hold given bleeding/hematomas as above (held x 10 days thus far) TSH is elevated, ?reactive from bleeding. T4 wnl. Will check t3 w/ AM labs for completeness - rec repeat TFT outpatient w/ PCP Continue to monitor on telemetry keep K~4, mag ~2 CKD Baseline 1.31.8 Cr 1.78 on admit, currently 1.7 Renal dose meds/avoid nephrotoxic agents BMP in AM Depression Continue sertraline 25 mg p.o. nightly S/p pacemaker placement Patient reports this was more than 10 years ago, thinks was due to slow heart rate. No problems since. DVT prophylaxis Pharmacal prophylaxis deferred due to active bleeding, SCDs not able to be used due to hematomas on legs. Follow clinically for signs of DVT, resume PPx as soon as able (2) Anemia: Plan: check iron/b12/folate levels, monitor CBC (3) Atrial fibrillation: (4) Chronic kidney disease, stage IV (severe): (5) Systolic CHF, chronic: (6) Acute on chronic systolic (congestive) heart failure: (7) Pacemaker: Admission and Anticipated Discharge Date Admission Date: May 12, 2022 Supervising Physician Co-Signing Physician Notes PA Supervision Note: I did not personally see or examine the patient today, but I verified all rodriguez points of KEENA Valdes's assessment and plan with the following exceptions/additions: Should be on a statin for TONYA-will see if reason why not on statin for TONYA Continue to follow Hgb. If drops lower would transfuse given tachycardia Subjective Evaluated this morning. Doing alright, she states she had been dealing w/ the hematomas for a while and was told to be off her eliquis for about a week, which she did. Continues to have weeping from the left leg, wound currently to see. Discussed with surgery PA, no plans for I&D at present unless develops infection, but they will continue to monitor. No fever/chills, chest pain, shortness of breath, abdominal pain, nausea or vomiting. She notes no prior discussion about stopping her eliquis and continuing just aspirin daily given bleeding risk, but remains on eliquis given her afib. Does have carotid stenosis as well, but denied lightheaded/dizziness prior to falls (frequently at home). Needs PT/OT evals as well as likely to need some degree of rehab. Denies bleeding in stool/urine. Discussed hemoglobin levels lower likely from bleeding, but will check iron studies for completeness as well as B12 given neuropathy. Questions/concerns addressed at this time. Review of Systems Review of Systems: All systems reviewed & are unremarkable except as noted in HPI & below Physical Exam Physical Exam: General: WD chronically ill appearing female sitting up in bed, no acute distress HEENT: head normocephalic, trachea midline Resp: CTA, no w/c, diminished in the bases, on room air CV: irregularly irregular, +systolic murmur, pulses diminished but palpable GI: +BS, soft/NT MSK/Neuro/skin: moves extremities on command, no facial droop/slurred speech, hematoma to bilateral LE, significant hematoma to lateral left lower leg with serous seepage on chucks pad, sensation intact to light touch Psych: AOx3, pleasant and cooperative, fatigued appearing Results & Data Results & Data ([facility]) Vital Signs (Past 12 Hours) Vital Signs Temp Pulse Pulse Pulse Resp BP BP 05/13/22 07:56 37.0 C 65 18 134/76 05/12/22 22:59 87 05/13/22 03:14 36.8 C 89 18 05/12/22 21:20 05/12/22 21:20 37.2 C 97 H 97 H 18 05/13/22 02:44 36.8 C 89 18 126/76 05/13/22 02:10 36.8 C 86 18 121/71 05/13/22 01:10 36.9 C 83 18 119/74 05/13/22 00:10 36.7 C 91 H 18 122/74 05/12/22 23:40 37.0 C 95 H 18 117/72 05/12/22 23:25 36.7 C 91 H 18 124/75 05/12/22 23:05 37.0 C 90 18 135/77 05/12/22 22:50 37.2 C 97 H 18 BP Pulse Ox O2 Del Method 05/13/22 07:56 94 Room Air 05/12/22 22:59 05/13/22 03:14 126/76 96 Room Air 05/12/22 21:20 Room Air 05/12/22 21:20 150/76 H 97 Room Air 05/13/22 02:44 96 05/13/22 02:10 95 05/13/22 01:10 93 05/13/22 00:10 95 05/12/22 23:40 93 05/12/22 23:25 94 05/12/22 23:05 96 05/12/22 22:50 150/76 H 97 Room Air Laboratory Results 05/13/22 05/13/22 05/12/22 Range/Units 04:19 04:19 21:49 WBC 6.42 (4.8-10.8) K/ul RBC 2.60 L (3.93-5.22) M/uL Hgb 7.7 L (12.0-16.0) g/dl Hct 22.1 L (34.1-44.9) % MCV 85.0 (80.0-100.0) fL MCH 29.6 (25.0-34.0) pg MCHC 34.8 (32.0-36.0) g/dL RDW Std Deviation 44.7 (36.4-46.3) fL RDW Coeff of Thee 14.5 (11.5-14.5) % Plt Count 172 (130-400) K/uL MPV 10.0 (9.4-12.3) fL Immature Gran % (Auto) 0.8 % Neut % (Auto) 70.1 % Lymph % (Auto) 7.5 % Clark % (Auto) 20.2 % Eos % (Auto) 1.1 % Baso % (Auto) 0.3 % Neut # (Auto) 4.50 (1.4-6.5) K/uL Lymph # (Auto) 0.48 L (1.2-3.4) K/uL Clark # (Auto) 1.30 H (0.24-0.82) K/uL Eos # (Auto) 0.07 (0-0.50) K/uL Baso # (Auto) 0.02 (0-0.2) K/uL Immature Gran # (Auto) 0.05 H (0.00-0.02) K/uL RBC Morphology Unremarkable Polychromasia Hypochromasia PT INR APTT PTT Ratio Sodium 137 (136-145) mmol/L Potassium 3.9 Chloride 103 (98-107) mmol/L Carbon Dioxide 26 (21-32) mmol/L Anion Gap 8 (3-11) BUN 37 H (6-23) mg/dl Creatinine 1.70 H (0.6-1.2) mg/dl Est Cr Clr Drug Dosing Not Reportable Est GFR ( Amer) 30.7 ml/min Est GFR (Non-Af Amer) 26.5 ml/min BUN/Creatinine Ratio 21.8 H (10-20) Glucose 112 H (70-99(Fasting)) mg/dl Calcium 8.6 (8.5-10.1) mg/dl Magnesium (1.7-2.4) mg/dl Total Bilirubin (0.2-1.0) mg/dl AST ALT (7-52) U/L Alkaline Phosphatase (34-104) U/L Total Protein (6.0-8.3) gm/dl Albumin (3.4-5.0) gm/dl Globulin (2.5-4.0) gm/dl Albumin/Globulin Ratio (0.9-2) TSH (0.300-4.500) uIu/ml Free T4 (0.61-1.60) ng/dl SARS-CoV-2, RNA, NAAT (NEGATIVE) Blood Type Blood Type Recheck A Positive Antibody Screen Crossmatch 05/12/22 05/12/22 05/12/22 Range/Units 19:51 17:01 17:00 WBC (4.8-10.8) K/ul RBC (3.93-5.22) M/uL Hgb 7.0 L (12.0-16.0) g/dl Hct 20.9 L* (34.1-44.9) % MCV (80.0-100.0) fL MCH (25.0-34.0) pg MCHC (32.0-36.0) g/dL RDW Std Deviation (36.4-46.3) fL RDW Coeff of Thee (11.5-14.5) % Plt Count (130-400) K/uL MPV (9.4-12.3) fL Immature Gran % (Auto) % Neut % (Auto) % Lymph % (Auto) % Clark % (Auto) % Eos % (Auto) % Baso % (Auto) % Neut # (Auto) (1.4-6.5) K/uL Lymph # (Auto) (1.2-3.4) K/uL Clark # (Auto) (0.24-0.82) K/uL Eos # (Auto) (0-0.50) K/uL Baso # (Auto) (0-0.2) K/uL Immature Gran # (Auto) (0.00-0.02) K/uL RBC Morphology Polychromasia Hypochromasia PT 12.8 H INR 1.2 H APTT 31.1 H PTT Ratio 1.1 Sodium (136-145) mmol/L Potassium Chloride (98-107) mmol/L Carbon Dioxide (21-32) mmol/L Anion Gap (3-11) BUN (6-23) mg/dl Creatinine (0.6-1.2) mg/dl Est Cr Clr Drug Dosing Est GFR ( Amer) ml/min Est GFR (Non-Af Amer) ml/min BUN/Creatinine Ratio (10-20) Glucose (70-99(Fasting)) mg/dl Calcium (8.5-10.1) mg/dl Magnesium (1.7-2.4) mg/dl Total Bilirubin (0.2-1.0) mg/dl AST ALT (7-52) U/L Alkaline Phosphatase (34-104) U/L Total Protein (6.0-8.3) gm/dl Albumin (3.4-5.0) gm/dl Globulin (2.5-4.0) gm/dl Albumin/Globulin Ratio (0.9-2) TSH (0.300-4.500) uIu/ml Free T4 (0.61-1.60) ng/dl SARS-CoV-2, RNA, NAAT (NEGATIVE) Blood Type A Positive Blood Type Recheck Antibody Screen NEGATIVE Crossmatch See Detail 05/12/22 05/12/22 05/12/22 Range/Units 17:00 15:40 15:40 WBC (4.8-10.8) K/ul RBC (3.93-5.22) M/uL Hgb (12.0-16.0) g/dl Hct (34.1-44.9) % MCV (80.0-100.0) fL MCH (25.0-34.0) pg MCHC (32.0-36.0) g/dL RDW Std Deviation (36.4-46.3) fL RDW Coeff of Thee (11.5-14.5) % Plt Count (130-400) K/uL MPV (9.4-12.3) fL Immature Gran % (Auto) % Neut % (Auto) % Lymph % (Auto) % Clark % (Auto) % Eos % (Auto) % Baso % (Auto) % Neut # (Auto) (1.4-6.5) K/uL Lymph # (Auto) (1.2-3.4) K/uL Clark # (Auto) (0.24-0.82) K/uL Eos # (Auto) (0-0.50) K/uL Baso # (Auto) (0-0.2) K/uL Immature Gran # (Auto) (0.00-0.02) K/uL RBC Morphology Polychromasia Hypochromasia PT INR APTT PTT Ratio Sodium (136-145) mmol/L Potassium 4.1 Chloride (98-107) mmol/L Carbon Dioxide (21-32) mmol/L Anion Gap (3-11) BUN (6-23) mg/dl Creatinine (0.6-1.2) mg/dl Est Cr Clr Drug Dosing Est GFR ( Amer) ml/min Est GFR (Non-Af Amer) ml/min BUN/Creatinine Ratio (10-20) Glucose (70-99(Fasting)) mg/dl Calcium (8.5-10.1) mg/dl Magnesium (1.7-2.4) mg/dl Total Bilirubin (0.2-1.0) mg/dl AST 19 ALT (7-52) U/L Alkaline Phosphatase (34-104) U/L Total Protein (6.0-8.3) gm/dl Albumin (3.4-5.0) gm/dl Globulin (2.5-4.0) gm/dl Albumin/Globulin Ratio (0.9-2) TSH 4.661 H (0.300-4.500) uIu/ml Free T4 1.32 (0.61-1.60) ng/dl SARS-CoV-2, RNA, NAAT NEGATIVE (NEGATIVE) Blood Type Blood Type Recheck Antibody Screen Crossmatch 05/12/22 05/12/22 05/12/22 Range/Units 15:40 15:40 15:40 WBC 10.58 (4.8-10.8) K/ul RBC 2.49 L (3.93-5.22) M/uL Hgb 7.4 L (12.0-16.0) g/dl Hct 22.2 L (34.1-44.9) % MCV 89.2 (80.0-100.0) fL MCH 29.7 (25.0-34.0) pg MCHC 33.3 (32.0-36.0) g/dL RDW Std Deviation 46.7 H (36.4-46.3) fL RDW Coeff of Thee 14.5 (11.5-14.5) % Plt Count 206 (130-400) K/uL MPV 10.2 (9.4-12.3) fL Immature Gran % (Auto) 0.9 % Neut % (Auto) 73.7 % Lymph % (Auto) 7.0 % Clark % (Auto) 17.9 % Eos % (Auto) 0.2 % Baso % (Auto) 0.3 % Neut # (Auto) 7.81 H (1.4-6.5) K/uL Lymph # (Auto) 0.74 L (1.2-3.4) K/uL Clark # (Auto) 1.89 H (0.24-0.82) K/uL Eos # (Auto) 0.02 (0-0.50) K/uL Baso # (Auto) 0.03 (0-0.2) K/uL Immature Gran # (Auto) 0.09 H (0.00-0.02) K/uL RBC Morphology Polychromasia 1+ Hypochromasia Present PT Cancelled INR Cancelled APTT Cancelled PTT Ratio Cancelled Sodium 136 (136-145) mmol/L Potassium TNP Chloride 100 (98-107) mmol/L Carbon Dioxide 28 (21-32) mmol/L Anion Gap 8 (3-11) BUN 39 H (6-23) mg/dl Creatinine 1.78 H (0.6-1.2) mg/dl Est Cr Clr Drug Dosing Not Reportable Est GFR ( Amer) 29.0 ml/min Est GFR (Non-Af Amer) 25.0 ml/min BUN/Creatinine Ratio 21.9 H (10-20) Glucose 121 H (70-99(Fasting)) mg/dl Calcium 9.0 (8.5-10.1) mg/dl Magnesium 2.2 (1.7-2.4) mg/dl Total Bilirubin 1.1 H (0.2-1.0) mg/dl AST TNP ALT 14 (7-52) U/L Alkaline Phosphatase 130 H (34-104) U/L Total Protein 7.4 (6.0-8.3) gm/dl Albumin 3.8 (3.4-5.0) gm/dl Globulin 3.6 (2.5-4.0) gm/dl Albumin/Globulin Ratio 1.1 (0.9-2) TSH (0.300-4.500) uIu/ml Free T4 (0.61-1.60) ng/dl SARS-CoV-2, RNA, NAAT (NEGATIVE) Blood Type Blood Type Recheck Antibody Screen Crossmatch PG Care Time/CCT Total # of Minutes Spent Total Time Spent with Patient: Total time spent is greater than 50% in coordination of care (as documented) at patient's floor/unit and/or counseling patient: Coding Level of Care Code 95627 SUB INP/OBS CARE 3/50MIN Diagnoses Hematoma of left lower leg S80.12XA Anemia D64.9 Atrial fibrillation I48.91 Atrial fibrillation type: unspecified Chronic kidney disease, stage IV (severe) N18.4 Systolic CHF, chronic I50.22 Acute on chronic systolic (congestive) heart failure I50.23 Pacemaker Z95.0 (1) Atrial fibrillation Atrial fibrillation type: unspecified Qualified Code(s): I48.91 - Unspecified atrial fibrillation
[2022-05-13 12:30] LABS: Hemoglobin 7.5 g/dl (12.0-16.0)
--- NOTE | 2022-05-13 12:43 | Surgery Progress Note ---
Date of Service May 13, 2022 Assessment & Plan (1) Hematoma of lower leg: Plan: Patient here with bilateral lower extremity hematoma's, L>R hbg 7.7 (7). WBC 6.4. vitals stable and patient afebrile no plans for surgical I&D of these at this time unless become infected continue local wound care, can dress with dry gauze/loose kerlex wrapping unless wound care has any other opinions Continue to hold blood thinner for now PT/OT for disposition planning given history of recent falls We will continue to follow along as above. large ecchymotic area with hematoma. pain manageable. no sign of infection. opening what is essentially a sterile blister type hematoma would likely result in more bleeding/potential infection. will follow along. I & D if pain worsens or signs of infection. Admission and Anticipated Discharge Date Admission Date: May 12, 2022 Subjective Patient doing okay. Offers no complaints. Sitting up in bed eating breakfast Physical Exam Physical Exam: awake/alert, no distress Skin: bilateral lower extremities with hematoma's noted on anterior shins; Left side greater than R. some bloody drainage noted on chucks. Results & Data ([facility]) Vital Signs (Past 12 Hours) Vital Signs Temp Pulse Pulse Resp BP BP BP 05/13/22 11:27 36.4 C L 76 18 104/63 05/13/22 07:56 37.0 C 65 18 134/76 05/13/22 03:14 36.8 C 89 18 126/76 05/13/22 02:44 36.8 C 89 18 126/76 05/13/22 02:10 36.8 C 86 18 121/71 05/13/22 01:10 36.9 C 83 18 119/74 Pulse Ox O2 Del Method 05/13/22 11:27 97 Room Air 05/13/22 07:56 94 Room Air 05/13/22 03:14 96 Room Air 05/13/22 02:44 96 05/13/22 02:10 95 05/13/22 01:10 93 PG Care Time/CCT Total # of Minutes Spent Total Time Spent with Patient: Total time spent is greater than 50% in coordination of care (as documented) at patient's floor/unit and/or counseling patient: Coding Level of Care Code 96630 SUB INP/OBS CARE 2/35MIN Diagnoses Hematoma of lower leg S80.10XA
[2022-05-13 12:59] LABS: Vitamin B12 1466 pg/ml (180-914)
[2022-05-13] MEDS ORDERED: NYSTATIN POWDER 15GM BTL EXT PRN (13:56)
[2022-05-13 15:59] LABS: Hemoglobin 8.1 g/dl (12.0-16.0)
--- NOTE | 2022-05-13 19:53 | Communication Note ---
Date of Service: May 13, 2022 Addendum to progress note: Also will trend troponin this evening given elevated trop of 18 on admission
[2022-05-13] MEDS: LORazepam 0.5 MG TAB PO SCH (21:21)
[2022-05-13] MEDS: MELATONIN 3 MG TAB PO SCH (21:22)
[2022-05-13] MEDS: SERTRALINE HCL 50 MG TABLET PO SCH (21:23)
[2022-05-14 06:47] LABS: Basophils # (auto) 0.02 K/uL (0-0.2); Basophils % (auto) 0.2 %; Eosinophils # (auto) 0.08 K/uL (0-0.50); Hematocrit (blood only) 23.3 % (37.0-47.0); Hemoglobin 7.9 g/dl (12.0-16.0); Immature Granulocytes # (auto) 0.09 K/uL (0.01-0.20); Immature Granulocytes % (auto) 1.1 %; Lymphocytes % (auto) 7.2 %; Mean Corpuscular Hemoglobin 29.3 pg (25.0-34.0); Mean Corpuscular Hgb Conc 33.9 g/dL (32.0-36.0); Mean Corpuscular Volume 86.3 fL (80.0-100.0); Mean Platelet Volume 10.2 fL (9.4-12.4); Monocytes # (auto) 1.54 K/uL (0.11-0.59); Monocytes % (auto) 18.4 %; Neutrophils # (auto) 6.02 K/uL (1.40-6.50); Neutrophils % (auto) 72.1 %; Platelet Count 192 K/uL (130-400); RDW Coefficient of Variation 14.8 % (11.5-14.5); White Blood Count 8.35 K/ul (4.8-10.8)
[2022-05-14 06:57] LABS: Albumin Level 3.1 gm/dl (3.4-5.0); BUN Creatinine Ratio 24.4 (10-20); Bilirubin,Total 1.2 mg/dl (0.2-1.0); Calcium 8.3 mg/dl (8.5-10.1); Creatinine Clr Calc Pharmacy 23.3 ml/min; Est GFR (Non-African American) 28.5 ml/min; Magnesium 1.9 mg/dl (1.7-2.4); Potassium 3.9 mmol/L (3.5-5.1); Total Protein 6.1 gm/dl (6.0-8.3)
--- NOTE | 2022-05-14 08:20 | Hospitalist Progress Note ---
Date of Service May 14, 2022 Assessment & Plan (1) Hematoma of left lower leg: Plan: Hematoma of Left Lower Leg/Anemia/Falls suspect Hematoma 2nd to falls, anemia from bleeding from such. Denied any lightheadedness/dizziness prior to falls and tripped on a step through threshold in door Eliquis on hold (has been on hold ~11 days currently) Wound RN consult -- see imaging/recs Surgery on consult Per discussion with general surgery/concerns for needing I&D evacuation for healing -- deferring need for intervention currently but they will follow along to monitor for any need/infection Hgb 7.9 and stable (7.4 on admit down to 7.0), baseline in 10-12s Iron studies w/o acute iron deficiency, more chronic disease Type/screen ordered, no transfusion currently (she denies ever having transfusion, would like to hold off) Transfuse if having any worsening tachycardia/SOB, or for hgb drop further PT/OT consulted -- likely needing some rehab. CM to follow up tomorrow Heart Failure Reported history of such, on furosemide 20mg 2x/week listed in chart, patient states she takes this every other day Weight UP --> 77-79kg on admit, appears was in the upper 58-67kg last year around this time -- Will order lasix 20mg IV x 1, check BNP w/ labs, also repeating ECHO Prior echo 55-60%, grade II diastolic dysfunction Discussed w/ PCP, her gas inspector is Dr Milligan, will consult while inpatient Carotid stenosis 50% right, left 50-70%. No hemodynamically significant stenosis Patient not on aspirin therapy due to hematomas and bleeding, has been on Eliquis this is been held in the setting of anemia with hemoglobin near 7 Once hematomas are stable, can resume Eliquis +/- aspirin -- prior notes HAASBLED score 3, CHADsvasc 3 -- consider continued discussions/discussion w/ cards (she states it has been a while since seen) -- do not see any recent cards office visits. Will ask CM to help arrange outpt f/u with [facility] Should be on a statin Atrial fibrillation Continue metoprolol 50mg BID, diltiazem 120mg daily Eliquis on hold given bleeding/hematomas as above TSH is elevated, ?reactive from bleeding. T4/t3 wnl Rec repeat TFT outpatient w/ PCP Monitor on telemetry Keep mag ~2/K~4 CKD Baseline 1.31.8 Cr 1.78 on admit, currently 1.6 Renal dose meds/avoid nephrotoxic agents BMP in AM Depression Continue sertraline 25 mg p.o. nightly S/p pacemaker placement Patient reports this was more than 10 years ago, thinks was due to slow heart rate. No problems since. Pacemaker interrogation ordered DVT prophylaxis Pharmacal prophylaxis deferred due to active bleeding, SCDs not able to be used due to hematomas on legs. Follow clinically for signs of DVT, resume PPx as soon as able (2) Anemia: (3) Atrial fibrillation: (4) Chronic kidney disease, stage IV (severe): (5) Systolic CHF, chronic: (6) Acute on chronic systolic (congestive) heart failure: (7) Pacemaker: Admission and Anticipated Discharge Date Admission Date: May 12, 2022 Supervising Physician Co-Signing Physician Notes PA Supervision Note: I did not personally see or examine the patient today, but I verified all rodriguez points of KEENA Valdes's assessment and plan with the following exceptions/additions: None Subjective evaluated this morning, has not seen surgery yet reports she is doing well, no increased shortness of breath, no chest pain. HR 90-100s afib, denies palpitations. Discussed lower leg/hematomas -- she states pain controlled, but occasional sharp jab. On exam, having increased drainage/some bloody, some yellowish. Discussed possibility of needing I&D and evacuation/possible need for wound vac but will contact surgery to see their thoughts once seen today. Denies fever/chills, abdominal pain, nausea or vomiting. Reports moving her bowels without issues. [place] able to take, she asked about place in [place]. Will ask CM to discuss. Of note, some increased LE edema, takes lasix per patient "every other day". She notes she doesn't recall any issues with oral potassium replacement, as listed on her medication list. Questions/concerns addressed at this time. Review of Systems Review of Systems: All systems reviewed & are unremarkable except as noted in HPI & below Physical Exam Physical Exam: General: WD chronically ill appearing female sitting up in bed, no acute distress HEENT: head normocephalic, trachea midline Resp: CTA, no w/c, diminished in the bases, on room air CV: irregularly irregular, +systolic murmur, pulses diminished but palpable, 1+ LE edema GI: +BS, soft/NT, colostomy w/ thickened brown stool LLQ MSK/Neuro/skin: moves extremities on command, no facial droop/slurred speech, hematoma to bilateral LE, significant hematoma to lateral left lower leg with serous seepage, purulent yellow drainage on gauze, sensation intact, painful to palpation Psych: AOx3, pleasant and cooperative, fatigued appearing Results & Data Results & Data ([facility]) Vital Signs (Past 12 Hours) Vital Signs Temp Pulse Pulse Resp BP Pulse Ox O2 Del Method 05/14/22 06:15 36.7 C 90 18 128/63 95 Room Air 05/14/22 04:14 36.8 C 80 20 127/63 96 Room Air 05/14/22 00:48 88 05/13/22 22:51 36.8 C 89 18 129/61 95 Room Air Laboratory Results 05/14/22 05/14/22 05/14/22 Range/Units 05:35 05:35 05:35 WBC 8.35 (4.8-10.8) K/ul RBC 2.70 L (4.20-5.40) M/uL Hgb 7.9 L (12.0-16.0) g/dl Hct 23.3 L (37.0-47.0) % MCV 86.3 (80.0-100.0) fL MCH 29.3 (25.0-34.0) pg MCHC 33.9 (32.0-36.0) g/dL RDW Std Deviation 46.0 (36.4-46.3) fL RDW Coeff of Thee 14.8 H (11.5-14.5) % Plt Count 192 (130-400) K/uL MPV 10.2 (9.4-12.4) fL Immature Gran % (Auto) 1.1 % Neut % (Auto) 72.1 % Lymph % (Auto) 7.2 % Ulster % (Auto) 18.4 % Eos % (Auto) 1.0 % Baso % (Auto) 0.2 % Neut # (Auto) 6.02 (1.40-6.50) K/uL Lymph # (Auto) 0.60 L (1.2-3.4) K/uL Ulster # (Auto) 1.54 H (0.11-0.59) K/uL Eos # (Auto) 0.08 (0-0.50) K/uL Baso # (Auto) 0.02 (0-0.2) K/uL Immature Gran # (Auto) 0.09 (0.01-0.20) K/uL Polychromasia 1+ Sodium 137 (136-145) mmol/L Potassium 3.9 (3.5-5.1) mmol/L Chloride 104 (98-107) mmol/L Carbon Dioxide 28 (21-32) mmol/L Anion Gap 5 (3-11) BUN 39 H (6-23) mg/dl Creatinine 1.60 H (0.6-1.2) mg/dl Est Cr Clr Drug Dosing 23.3 ml/min Est GFR ( Amer) 33.0 ml/min Est GFR (Non-Af Amer) 28.5 ml/min BUN/Creatinine Ratio 24.4 H (10-20) Glucose 125 H (70-99(Fasting)) mg/dl Calcium 8.3 L (8.5-10.1) mg/dl Magnesium 1.9 (1.7-2.4) mg/dl Total Bilirubin 1.2 H (0.2-1.0) mg/dl AST 14 (13-39) U/L ALT 9 (7-52) U/L Alkaline Phosphatase 107 H (34-104) U/L Troponin I High Sens (0-14) pg/ml Total Protein 6.1 (6.0-8.3) gm/dl Albumin 3.1 L (3.4-5.0) gm/dl Globulin 3.0 (2.5-4.0) gm/dl Albumin/Globulin Ratio 1.0 (0.9-2) Free T3 2.45 (2.3-4.2) pg/ml 05/13/22 Range/Units 20:24 WBC (4.8-10.8) K/ul RBC (4.20-5.40) M/uL Hgb (12.0-16.0) g/dl Hct (37.0-47.0) % MCV (80.0-100.0) fL MCH (25.0-34.0) pg MCHC (32.0-36.0) g/dL RDW Std Deviation (36.4-46.3) fL RDW Coeff of Thee (11.5-14.5) % Plt Count (130-400) K/uL MPV (9.4-12.4) fL Immature Gran % (Auto) % Neut % (Auto) % Lymph % (Auto) % Ulster % (Auto) % Eos % (Auto) % Baso % (Auto) % Neut # (Auto) (1.40-6.50) K/uL Lymph # (Auto) (1.2-3.4) K/uL Ulster # (Auto) (0.11-0.59) K/uL Eos # (Auto) (0-0.50) K/uL Baso # (Auto) (0-0.2) K/uL Immature Gran # (Auto) (0.01-0.20) K/uL Polychromasia Sodium (136-145) mmol/L Potassium (3.5-5.1) mmol/L Chloride (98-107) mmol/L Carbon Dioxide (21-32) mmol/L Anion Gap (3-11) BUN (6-23) mg/dl Creatinine (0.6-1.2) mg/dl Est Cr Clr Drug Dosing ml/min Est GFR ( Amer) ml/min Est GFR (Non-Af Amer) ml/min BUN/Creatinine Ratio (10-20) Glucose (70-99(Fasting)) mg/dl Calcium (8.5-10.1) mg/dl Magnesium (1.7-2.4) mg/dl Total Bilirubin (0.2-1.0) mg/dl AST (13-39) U/L ALT (7-52) U/L Alkaline Phosphatase (34-104) U/L Troponin I High Sens 19.0 H (0-14) pg/ml Total Protein (6.0-8.3) gm/dl Albumin (3.4-5.0) gm/dl Globulin (2.5-4.0) gm/dl Albumin/Globulin Ratio (0.9-2) Free T3 (2.3-4.2) pg/ml PG Care Time/CCT Total # of Minutes Spent Total Time Spent with Patient: Total time spent is greater than 50% in coordination of care (as documented) at patient's floor/unit and/or counseling patient: Coding Level of Care Code 44542 SUB INP/OBS CARE 3/50MIN Diagnoses Hematoma of left lower leg S80.12XA Anemia D64.9 Atrial fibrillation I48.91 Atrial fibrillation type: unspecified Chronic kidney disease, stage IV (severe) N18.4 Systolic CHF, chronic I50.22 Acute on chronic systolic (congestive) heart failure I50.23 Pacemaker Z95.0 (1) Atrial fibrillation Atrial fibrillation type: unspecified Qualified Code(s): I48.91 - Unspecified atrial fibrillation
--- NOTE | 2022-05-14 09:06 | Electrocardiogram Report ---
Test Reason : Blood Pressure : / mmHG Vent. Rate : 108 BPM Atrial Rate : 110 BPM P-R Int : 000 ms QRS Dur : 118 ms QT Int : 304 ms P-R-T Axes : 000 -55 135 degrees QTc Int : 407 ms Atrial fibrillation with rapid ventricular response Left axis deviation Left ventricular hypertrophy with QRS widening Incomplete right bundle branch block Abnormal ECG Confirmed by Gelacio Duke ([id number] on 05/14/2022 9:06:18 AM Referred By: REFERRED SELF Confirmed By:John Duke
[2022-05-14 09:27] LABS: Polychromasia 1+
[2022-05-14] MEDS: dilTIAZem HCL 120 MG CAPCR PO SCH (09:37)
[2022-05-14] MEDS: allopurinoL 100 MG TAB PO SCH (09:38)
[2022-05-14] MEDS: METOPROLOL SUCC 50MG EXT REL TAB PO SCH ×2 (09:38→21:10)
[2022-05-14] MEDS: PANTOprazole 40 MG TAB PO SCH (09:38)
--- NOTE | 2022-05-14 14:10 | Surgery Progress Note ---
Date of Service May 14, 2022 Assessment & Plan (1) Hematoma of lower leg: Plan: Patient here with bilateral lower extremity hematoma's, L>R hbg 7.9. WBC 8. Vitals stable and she is afebrile R LE hematoma unchanged. L LE hematoma with some superficial skin sloughing w/ mild serous/bloody drainage. Adaptic dressing overtop. no expansion of hematoma size no plans for surgical I&D of these at this time continue local wound care blood thinner is on hold PT/OT for disposition planning given history of recent falls We will continue to follow along as above. afebrile. normal wbc. continue current care. if develops into an abcess will drain...currently drainage not indicated. will continue to follow along. Admission and Anticipated Discharge Date Admission Date: May 12, 2022 Subjective Patient appears to be doing well. No new complaints. Said her wounds we just re- dressed. Physical Exam Physical Exam: awake/alert, no distress Respiratory: normal respiratory effort Skin: Right lower extremity hematoma stable without change. Left lower extremity hematoma with some superficial skin sloughing. adaptic dressing overtop with ABD pads. minimal serous/bloody drainage noted. Results & Data ([facility]) Vital Signs (Past 12 Hours) Vital Signs Temp Pulse Pulse Resp BP Pulse Ox O2 Del Method 05/14/22 07:00 94 H 05/14/22 06:15 36.7 C 90 18 128/63 95 Room Air 05/14/22 04:14 36.8 C 80 20 127/63 96 Room Air PG Care Time/CCT Total # of Minutes Spent Total Time Spent with Patient: Total time spent is greater than 50% in coordination of care (as documented) at patient's floor/unit and/or counseling patient: Coding Level of Care Code 26622 SUB INP/OBS CARE 05/13MIN Diagnoses Hematoma of lower leg S80.10XA
[2022-05-14] MEDS ORDERED: MAGNESIUM SULFATE / D5W 1 GM/100 ML BAG IV ONE (17:29)
[2022-05-14] MEDS ORDERED: POTASSIUM CHLORIDE CRTAB 20 MEQ TABCR PO STA (17:32)
[2022-05-14] MEDS ORDERED: FUROSEMIDE INJ 20 MG/2 ML VIAL IV ONE (17:40)
[2022-05-14] MEDS ORDERED: FUROSEMIDE 20 MG TAB PO SCH (17:45)
[2022-05-14] MEDS: LORazepam 0.5 MG TAB PO SCH (21:10)
[2022-05-14] MEDS: ACETAMINOPHEN 325 MG TAB PO PRN (21:10)
[2022-05-14] MEDS: MELATONIN 3 MG TAB PO SCH (21:10)
[2022-05-14] MEDS: SERTRALINE HCL 50 MG TABLET PO SCH (21:11)
[2022-05-15 06:00] LABS: Hematocrit (blood only) 24.1 % (37.0-47.0); Hemoglobin 8.3 g/dl (12.0-16.0); Mean Corpuscular Hemoglobin 29.6 pg (25.0-34.0); Mean Corpuscular Hgb Conc 34.4 g/dL (32.0-36.0); Mean Corpuscular Volume 86.1 fL (80.0-100.0); Mean Platelet Volume 9.8 fL (9.4-12.4); Platelet Count 204 K/uL (130-400); RDW Coefficient of Variation 14.8 % (11.5-14.5)
[2022-05-15 06:19] LABS: Calcium 8.7 mg/dl (8.5-10.1); Magnesium 1.9 mg/dl (1.7-2.4)
[2022-05-15 06:25] LABS: BUN Creatinine Ratio 24.1 (10-20); Creatinine Clr Calc Pharmacy 23.6 ml/min; Est GFR (African American) 33.5 ml/min; Est GFR (Non-African American) 28.9 ml/min
--- NOTE | 2022-05-15 08:01 | Hospitalist Progress Note ---
Date of Service May 15, 2022 Assessment & Plan (1) Hematoma of left lower leg: Plan: Hematoma of Left Lower Leg/Anemia/Falls suspect Hematoma 2nd to falls, anemia from bleeding from such. Denied any lightheadedness/dizziness prior to falls and tripped on a step through threshold in door Wound RN consult -- see imaging/recs Surgery on consult Per discussion with general surgery/concerns for needing I&D evacuation for healing -- deferring need for intervention currently but they will follow along to monitor for any need/infection. Wound RN following -- seen w/ RN 05/15, surgery to see this afternoon given concerns necrotic tissue --> per surgery, no intervention unless WBC elevation/fever, will monitor Hgb down to 7.0 on admit, did actually get 1U PRBC on admit Iron studies w/o acute EUFEMIA, chronic in nature Transfuse additional if needed Given dose IV lasix 20mg last evening -- see below Hgb currently stable 8.3 Remains off her Eliquis (~11-12 days at this point) -- discussed w/ janae and given falls, would NOT resume this at discharge Monitor CBC PT/OT consulted -- likely needing some rehab. CM to follow up/send for auth which should be good for 4-5 days Heart Failure Reported history of such, on furosemide 20mg 2x/week listed in chart, patient states she takes this every other day Weight UP --> 77-79kg on admit, appears was in the upper 58-67kg last year around this time -- Ordered lasix 20mg IV x 1 evening 05/14, scheduled for daily given BNP 652 Repeat ECHO pending (Prior echo 55-60%, grade II diastolic dysfunction) Per discussion w/ [employer], to see this afternoon from cards office, prior BNPs actually much higher Discussed w/ PCP, her chief lending officer is Dr Blandon, will consult while inpatient Carotid stenosis 50% right, left 50-70%. No hemodynamically significant stenosis Patient not on aspirin therapy due to hematomas and bleeding, has been on Eliquis this is been held in the setting of anemia with hemoglobin near 7 Once hematomas are stable, can resume Eliquis +/- aspirin -- prior notes HAASBLED score 3, CHADsvasc 3 -- consider continued discussions/discussion w/ cards (she states it has been a while since seen) -- do not see any recent cards office visits. Will ask CM to help arrange outpt f/u with [facility] Should be on a statin, discussed w/ dr blandon, doubts benefit for begining in 86yo patient, will await consult Atrial fibrillation Continue metoprolol 50mg BID, diltiazem 120mg daily Eliquis on hold given bleeding/hematomas as above --per discussion w/ cards, would not resume TSH is elevated, ?reactive from bleeding. T4/t3 wnl Rec repeat TFT outpatient w/ PCP Monitor on telemetry Keep mag ~2/K~4 CKD Baseline 1.31.8 Cr 1.78 on admit, currently 1.6 Lasix 20mg IV evening 05/14, Cr 1.58 this AM, BUN 39-->38 Additional 20mg IV this morning Renal dose meds/avoid nephrotoxic agents as able BMP in AM Depression Continue sertraline 25 mg p.o. nightly S/p pacemaker placement Patient reports this was more than 10 years ago, thinks was due to slow heart rate. No problems since. Pacemaker interrogation ordered, doesn't appear to have significant issue, appreciate cards input DVT prophylaxis Pharmacal prophylaxis deferred due to active bleeding, SCDs not able to be used due to hematomas on legs. Follow clinically for signs of DVT -- unclear if would be able to get good/any imaging w/ current hematoma to leg, sensation and pulse currently intact, but will need close monitoring (2) Anemia: (3) Atrial fibrillation: (4) Chronic kidney disease, stage IV (severe): (5) Systolic CHF, chronic: (6) Acute on chronic systolic (congestive) heart failure: (7) Pacemaker: Admission and Anticipated Discharge Date Admission Date: May 14, 2022 Supervising Physician Co-Signing Physician Notes The patient was not seen by me. Chart reviewed. Case discussed with KEENA Lin. Agree with assessment and plan Subjective eval this morning, patient states she thinks she is doing fairly well. pain/drainage from LE, examined with wound RN today w/ necrotic tissue and concerns for needing debridement. Messaged general surgery regarding concerns. Decreased edema after resuming lasix and discussed having Dr Blandon also see her while inpatient as well. No chest pain/shortness of breath, abdominal pain. Reports appetite fair but to cut her portions in half. Questions/concerns addressed at this time. Surgery to see patient this afternoon. Review of Systems Review of Systems: All systems reviewed & are unremarkable except as noted in HPI & below Physical Exam Physical Exam: General: WD chronically ill appearing female laying in bed, NAD HEENT: head normocephalic, trachea midline Resp: CTA, no w/c, diminished in the bases, on room air CV: irregularly irregular, +systolic murmur, pulses diminished but palpable, + LE edema GI: +BS, soft/NT, colostomy w/ less thick brown stool LLQ, MSK/Neuro/skin: moves extremities on command, no facial droop/slurred speech, hematoma to bilateral LE, significant hematoma to lateral left lower leg , necrotic tissue present (see imaging), bloody drainage, fluctuant, no abscess appreciated, painful to palpation Psych: AOx3, pleasant and cooperative, fatigued appearing Results & Data Results & Data ([facility]) Vital Signs (Past 12 Hours) Vital Signs Temp Pulse Pulse Resp BP BP Pulse Ox 05/15/22 07:51 37.0 C 108 H 20 138/81 96 05/15/22 04:51 106 H 05/15/22 04:00 36.8 C 106 H 20 142/81 H 98 05/14/22 23:34 36.9 C 107 H 20 127/77 96 O2 Del Method 05/15/22 07:51 Room Air 05/15/22 04:51 05/15/22 04:00 Room Air 05/14/22 23:34 Room Air Laboratory Results 05/15/22 05/15/22 05/14/22 Range/Units 05:22 05:22 18:12 WBC 8.30 (4.8-10.8) K/ul RBC 2.80 L (4.20-5.40) M/uL Hgb 8.3 L (12.0-16.0) g/dl Hct 24.1 L (37.0-47.0) % MCV 86.1 (80.0-100.0) fL MCH 29.6 (25.0-34.0) pg MCHC 34.4 (32.0-36.0) g/dL RDW Std Deviation 46.0 (36.4-46.3) fL RDW Coeff of Thee 14.8 H (11.5-14.5) % Plt Count 204 (130-400) K/uL MPV 9.8 (9.4-12.4) fL Sodium 136 (136-145) mmol/L Potassium 4.0 (3.5-5.1) mmol/L Chloride 101 (98-107) mmol/L Carbon Dioxide 28 (21-32) mmol/L Anion Gap 7 (3-11) BUN 38 H (6-23) mg/dl Creatinine 1.58 H (0.6-1.2) mg/dl Est Cr Clr Drug Dosing 23.6 ml/min Est GFR ( Amer) 33.5 ml/min Est GFR (Non-Af Amer) 28.9 ml/min BUN/Creatinine Ratio 24.1 H (10-20) Glucose 116 H (70-99(Fasting)) mg/dl Calcium 8.7 (8.5-10.1) mg/dl Magnesium 1.9 (1.7-2.4) mg/dl B-Natriuretic Peptide 652 H (0-100) pg/ml PG Care Time/CCT Total # of Minutes Spent Total Time Spent with Patient: Total time spent is greater than 50% in coordination of care (as documented) at patient's floor/unit and/or counseling patient: Coding Level of Care Code 19319 SUB INP/OBS CARE 3/50MIN Diagnoses Hematoma of left lower leg S80.12XA Anemia D64.9 Atrial fibrillation I48.91 Atrial fibrillation type: unspecified Chronic kidney disease, stage IV (severe) N18.4 Systolic CHF, chronic I50.22 Acute on chronic systolic (congestive) heart failure I50.23 Pacemaker Z95.0 (1) Atrial fibrillation Atrial fibrillation type: unspecified Qualified Code(s): I48.91 - Unspecified atrial fibrillation
[2022-05-15] MEDS: METOPROLOL SUCC 50MG EXT REL TAB PO SCH ×2 (08:21→21:09)
[2022-05-15] MEDS: dilTIAZem HCL 120 MG CAPCR PO SCH (08:21)
[2022-05-15] MEDS: allopurinoL 100 MG TAB PO SCH (08:21)
[2022-05-15] MEDS: PANTOprazole 40 MG TAB PO SCH (08:21)
[2022-05-15] MEDS: FUROSEMIDE INJ 20 MG/2 ML VIAL IV SCH (08:22)
--- NOTE | 2022-05-15 12:01 | Surgery Progress Note ---
Date of Service May 15, 2022 Assessment & Plan (1) Hematoma of lower leg: Plan: Pain manageable. H&H stable. Once hematoma organizes we could consider evacuating it but currently no urgent indication. There is no sign of infection. Currently it is a sterile hematoma and I would prefer to leave it as is if she can tolerate the discomfort. We will continue to follow along while she is in the hospital. [facility] covering for the weekend. (2) Fall (on) (from) other stairs and steps, initial encounter: (3) Contusion of left leg: Admission and Anticipated Discharge Date Admission Date: May 14, 2022 Subjective Patient seen. No new complaints. Does have some discomfort at her hematoma site. Physical Exam Constitutional: WD/WN, vitals as above no acute distress and not ill appearing Eyes: PERRL, conjunctivae normal, anicteric sclerae EOM intact bilaterally ENMT: external ear and nose normal, oropharynx normal Ears: no hearing impairment Neck: trachea midline, no thyromegaly Respiratory: normal respiratory effort; no respiratory distress and does not use accessory muscles Cardiovascular: Rate/Rhythm: regular rate and regular rhythm Gastrointestinal (Abdomen): normal bowel sounds, soft, nontender, no hepatosplenomegaly Skin: Hematoma essentially unchanged. There are 2 small necrotic areas of skin. There is currently no sign of infection. The hematoma itself is very fluctuant. Psychiatric: Orientation: alert, oriented x 3 and cooperative Results & Data ([facility]) Vital Signs (Past 12 Hours) Vital Signs Temp Pulse Pulse Resp BP BP Pulse Ox 05/15/22 07:51 37.0 C 108 H 20 138/81 96 05/15/22 04:51 106 H 05/15/22 04:00 36.8 C 106 H 20 142/81 H 98 O2 Del Method 05/15/22 07:51 Room Air 05/15/22 04:51 05/15/22 04:00 Room Air PG Care Time/CCT Total # of Minutes Spent Total Time Spent with Patient: Total time spent is greater than 50% in coordination of care (as documented) at patient's floor/unit and/or counseling patient: Coding Level of Care Code 31870 SUB INP/OBS CARE 2/35MIN Diagnoses Hematoma of lower leg S80.10XA Fall (on) (from) other stairs and steps, initial encounter W10.8XXA Contusion of left leg S80.12XA
--- NOTE | 2022-05-15 16:59 | XCELERA ---
[id number]
--- NOTE | 2022-05-15 17:12 | Cardiology Consultation ---
Date of Consultation May 15, 2022 Assessment & Plan (1) Hematoma of lower leg: Plan Impression: 1. Chronic atrial fibrillation with rate control strategy 2. Chronic diastolic heart failure 3. History of pacemaker 4. 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 History of mechanical falls 6. Echo 05/15/2021 showing EF of 55%, Grade III diastolic dysfunction, right ventricle moderate to severely dilated, mildly reduced right ventricular systolic function, severe tricuspid regurgitation, elevated RVSP 50-60 mmHg 7. Anemia secondary to hematoma requiring 1u PRBCs this visit. Ms. Truong continues to be in a rate controlled atrial fibrillation. She has slightly higher rates likely due to anemia and injury. I would not recommending adjusting her rate control as long as she is maintained under 110 bpm. She has thus far been on reduced dose Eliquis. She has a history of frequent falls. I think at this point with her frailty and significant injury requiring blood replacement, I would recommend that she stay off anticoagulation. She has a history of chronic heart failure as well as chronic lower extremity edema. Her BNP is somewhat elevated but is also chronically so. Her last NT-Pro BNP in the office was 5,000. She is intravascularly dry at baseline. She had a dose of IV furosemide yesterday evening and today. This can be continued but I would check daily kidney function and not allow her BUN and creatinine to go too much higher. If they increase, would back down 20 mg of daily oral furosemide with close monitoring at discharge. Ms. Truong is frail and has demonstrated that she is having a hard time caring for herself at home and is at risk for further falls. Hopefully case management can help her find a safer situation for further care after discharge. History of Present Illness Attending Physician: Trenton Rogers MD History of Present Illness Ms. Truong is admitted for hematoma of her left lower leg. She fell on 05/09 and suffered a hematoma to both legs, left leg having the worse injury. She had refused inpatient rehab previously and outpatient care was arranged but there was no home care available to take her case. She was found to have a hgb of 7.4. She had previously injured herself with a fall. She has a history of frequent falls. Today she appears comfortable in bed. She denies sob or chest pain. She is in afib on the monitor with rates in the 90s. Allergies Allergy/AdvReac Type Severity Reaction Status Date / Time Iodinated Contrast Media Allergy Severe Difficulty Verified 05/12/22 16:49 Breathing, Severe Hives cephalexin Allergy Unknown Unknown Verified 05/12/22 16:49 diphenhydramine Allergy Unknown DOES NOT Verified 05/12/22 16:49 REMEMBER mushroom Allergy Unknown Unknown Verified 05/12/22 16:49 potassium chloride Allergy Unknown unknown Verified 05/12/22 16:49 Sulfa (Sulfonamide Allergy Unknown Unknown Verified 05/12/22 16:49 Antibiotics) Home Medications Medication Instructions Recorded Confirmed Type allopurinol 100 mg tablet 100 mg PO QAM 06/20/19 05/12/22 History multivit with 1 tab PO QAM 06/20/19 05/12/22 History lfibadhz-fuoc-SK-lutein 8 mg iron-400 mcg-300 mcg tablet (Centrum Silver Women) nitroglycerin 0.4 mg sublingual 0.4 mg sublingual DIRECTED PRN 06/20/19 05/12/22 History tablet (Nitrostat) Chest Pain omeprazole 20 mg capsule,delayed 20 mg PO QAM 06/20/19 05/12/22 History release vit C 250 mg-vit E 90 mg-zinc 40 1 tab PO BID 06/20/19 05/12/22 History mg-copper 1 ul-iblfmt-jesywo capsule (PreserVision AREDS-2) apixaban 2.5 mg tablet (Eliquis) 2.5 mg PO BID 10/06/19 05/12/22 History furosemide 20 mg tablet 20 mg PO 2XWK 10/06/19 05/12/22 History sertraline 25 mg tablet 25 mg PO HS 10/06/19 05/12/22 History lorazepam 0.5 mg tablet 0.5 mg PO HS 3 days #3 tabs 10/10/19 05/12/22 Rx diclofenac sodium 1 % topical gel 4 g EXT Q6 PRN pain #100 grams 07/31/21 05/12/22 Rx (Voltaren Arthritis Pain) diltiazem HCl 120 mg 120 mg PO QAM #30 caps 07/31/21 05/12/22 Rx capsule,extended release 24 hr melatonin 3 mg tablet 3 mg PO HS #30 tabs 07/31/21 05/12/22 Rx metoprolol succinate 50 mg 50 mg PO BID 05/09/22 05/12/22 History tablet,extended release 24 hr Patient History Medical History Abnormal stress test Ambulatory dysfunction Atrial fibrillation Atrial fibrillation (04/24/13) Bilateral leg edema Chronic kidney disease, stage IV (severe) Closed fracture of right distal fibula Depression Disc displacement, 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) Dizziness DJD (degenerative joint disease) Fall GI bleed Gouty arthritis Hemarthrosis Hip hematoma, left Left knee DJD Osteoarthritis Pacemaker Right rib fracture Systolic CHF, chronic Weakness Surgical History H/O: hysterectomy (03/28/12) Family History Other Family history non-contributory Social History Smoking Status: Never smoker Hx Alcohol Use: No Hx Substance Use: No Preferred Language: Togolese Communication Ability: [employer] In[employer] Required: No Beliefs That Will Affect Care: None marital status: / Current Living Situation: Alone Feels Safe at Home: Yes Safety Concerns: Feels Safe At This Time Assistive Devices: Glasses and Walker Assistive Devices Comment: chair lift Review of Systems Review of Systems: All systems reviewed & are unremarkable except as noted in HPI & below Physical Exam Constitutional: WD/WN, vitals as above Respiratory: normal respiratory effort, lungs clear to auscultation Cardiovascular: Rate/Rhythm: + abnormal rate and + abnormal rhythm Extremities: + edema (significant bilateral LE edema) Skin: bilateral LE edema Neurologic: moves all extremities and awake Psychiatric: A+Ox3, euthymic affect Results & Data ([facility]) Vital Signs (Past 12 Hours) Vital Signs Temp Pulse Pulse Resp BP Pulse Ox O2 Del Method 05/15/22 16:00 91 H 05/15/22 15:05 37.1 C 85 20 122/72 95 Room Air 05/15/22 08:00 112 H 05/15/22 11:33 36.4 C L 99 H 20 137/83 98 Room Air 05/15/22 07:51 37.0 C 108 H 20 138/81 96 Room Air
[2022-05-15] MEDS: LORazepam 0.5 MG TAB PO SCH (21:07)
[2022-05-15] MEDS: MELATONIN 3 MG TAB PO SCH (21:07)
[2022-05-15] MEDS: ACETAMINOPHEN 325 MG TAB PO PRN (21:07)
[2022-05-15] MEDS: SERTRALINE HCL 50 MG TABLET PO SCH (21:08)
[2022-05-16 05:50] LABS: Hematocrit (blood only) 23.8 % (37.0-47.0); Hemoglobin 8.2 g/dl (12.0-16.0); Mean Corpuscular Hemoglobin 29.9 pg (25.0-34.0); Mean Corpuscular Hgb Conc 34.5 g/dL (32.0-36.0); Mean Corpuscular Volume 86.9 fL (80.0-100.0); Mean Platelet Volume 9.8 fL (9.4-12.4); Platelet Count 232 K/uL (130-400); RDW Coefficient of Variation 14.8 % (11.5-14.5); RDW Standard Deviation 45.8 fL (36.4-46.3); Red Blood Count 2.74 M/uL (4.20-5.40); White Blood Count 8.34 K/ul (4.8-10.8)
[2022-05-16 06:17] LABS: Albumin Level 3.2 gm/dl (3.4-5.0); Bilirubin,Total 1.3 mg/dl (0.2-1.0); Calcium 8.5 mg/dl (8.5-10.1); Magnesium 1.8 mg/dl (1.7-2.4); Potassium 3.9 mmol/L (3.5-5.1)
[2022-05-16 06:23] LABS: Albumin Globulin Ratio 1.1 (0.9-2); BUN Creatinine Ratio 25.6 (10-20); Creatinine Clr Calc Pharmacy 23.5 ml/min; Est GFR (Non-African American) 28.5 ml/min; Total Protein 6.2 gm/dl (6.0-8.3)
[2022-05-16] MEDS ORDERED: MAGNESIUM SULFATE / D5W 1 GM/100 ML BAG IV ONE (08:47)
--- NOTE | 2022-05-16 08:49 | Hospitalist Progress Note ---
Date of Service May 16, 2022 Assessment & Plan (1) Hematoma of left lower leg: Plan: Hematoma of Left Lower Leg/Anemia/Falls suspect Hematoma 2nd to falls, anemia from bleeding from such. Denied any lightheadedness/dizziness prior to falls and tripped on a step through threshold in door Wound RN consult -- see imaging/recs Surgery on consult Per discussion with general surgery/concerns for needing I&D evacuation for healing -- deferring need for intervention currently but they will follow along to monitor for any need/infection. Wound RN following -- seen w/ RN 05/15, surgery to see this afternoon given concerns necrotic tissue --> per surgery, no intervention unless WBC elevation/fever, will monitor Hgb 7.0, given 1u PRBC on admit. Acute blood loss anemia from LE hematomas/fall on eliquis Hgb stable at 8.2 currently, transfuse <7 or w/ symptoms Eliquis continues on hold, per cards would NOT resume at dc -- voicemail left for daughter General surgery seen AM 05/16, rec to start abx although cx surface w/ +MRSA. Will order Dapto. If evidence for cellulitis/abscess she will take to OR Continue to monitor CBC PT/OT consulted --SNF rehab planned Heart Failure Reported history of such, on furosemide 20mg 2x/week listed in chart, patient states she takes this every other day Weight UP --> 77-79kg on admit, appears was in the upper 58-67kg last year around this time-- Ordered lasix 20mg IV x 1 evening 05/14, scheduled for daily given BNP 652 Repeat ECHO (Prior echo 55-60%, grade II diastolic dysfunction) * Left ventricular systolic function is normal. Mild concentric LVH. Diastolic dysfunction grade III c/w marked congestive heart failure. RV moderate to severely dilated. RV systolic function mildly reduced. LA/RA mod-severely dilated. SEVERE tricuspid regurgitation. RVSP elevated at 50-60mmHg. IVC severely dilated Will continue Lasix 20mg IV daily given CHF, close monitoring of BUN/Cr--> Diuresis for 1.6L yesterday, continue to monitor. Is + fluid balance on admit overall Cardiology consulted Cannot r/o underlying PE/DVT given ability to perform US doppler w/ her hematomas. Denies SOB/no hypotension/hypoxia. Could entertain V/Q, but antic oagulation would be difficult given above Carotid stenosis 50% right, left 50-70%. No hemodynamically significant stenosis Patient not on aspirin therapy due to hematomas and bleeding, has been on Eliquis this is been held in the setting of anemia with hemoglobin near 7 Once hematomas are stable, likely would only continue ASA 81mg daily Should be on a statin, discussed w/ dr blandon, doubts benefit for beginning in 86yo patient-- defer to cards in f/u Atrial fibrillation Continue metoprolol 50mg BID, diltiazem 120mg daily Eliquis on hold given bleeding/hematomas as above --per discussion w/ cards, would not resume TSH is elevated, ?reactive from bleeding. T4/t3 wnl. Rec repeat TFT outpatient w/ PCP Monitor on telemetry Keep mag ~2/K~4 CKD Baseline 1.31.8 Cr 1.78 on admit Cr UNCHANGED w/ diuretics, continued as above Renal dose meds as able/avoid nephrotoxic agents BMP in AM Depression Continue sertraline 25 mg p.o. nightly S/p pacemaker placement Patient reports this was more than 10 years ago, thinks was due to slow heart rate. No problems since. Pacemaker interrogation ordered, doesn't appear to have significant issue, appreciate cards input DVT prophylaxis Pharmacal prophylaxis deferred due to active bleeding, SCDs not able to be used due to hematomas on legs. Follow clinically for signs of DVT -- unclear if would be able to get good/any imaging w/ current hematoma to leg, sensation and pulse currently intact, but will need close monitoring (2) Anemia: (3) Atrial fibrillation: (4) Chronic kidney disease, stage IV (severe): (5) Systolic CHF, chronic: (6) Acute on chronic systolic (congestive) heart failure: (7) Pacemaker: Admission and Anticipated Discharge Date Admission Date: May 14, 2022 Supervising Physician Co-Signing Physician Notes The patient was not seen by me. Chart reviewed. Case discussed with Ava Valdes, physicians assistant produce manager. Agree with assessment and plan Subjective Eval this morning, seen by surgery and to start abx and continued to monitor for need for any surgical intervention. Appetite fair, ostomy w/ output. States breathing stable. Discussed no further Eliquis -- wanting to touch base w/ daughter as she takes care of those pills. Will call either later today or tomorrow. No fever/chills. Having to go to the bathroom, RN to get on bedpan for more accurate sample prior to starting abx given multiple falls prior to admit to r/o UTI. Alert to person/place/time, intermittent forgetfulness at times but easily reoriented. Questions/concerns addressed at this time. Review of Systems Review of Systems: All systems reviewed & are unremarkable except as noted in HPI & below Physical Exam Physical Exam: General: WD chronically ill appearing female laying flat in bed, NAD HEENT: head normocephalic, trachea midline Resp: CTA, no w/c, diminished in the bases, on room air CV: irregularly irregular (rates 80-100s), +systolic murmur, +S3 pulses diminished but palpable, + LE edema decreased slightly GI: +BS, soft/NT, colostomy w/ stool in bag MSK/Neuro/skin: moves extremities on command, no facial droop/slurred speech, hematoma to bilateral LE, significant hematoma to lateral left lower leg , necrotic tissue present (see imaging), bloody drainage, fluctuant, no abscess appreciated, painful to palpation (dressing changed by surgery this morning, c/d/i) Psych: AOx3, intermittent forgetfulness but reoriented easily, pleasant and cooperative, fatigued appearing Results & Data Results & Data ([facility]) Vital Signs (Past 12 Hours) Vital Signs Temp Pulse Pulse Resp BP BP Pulse Ox 05/16/22 07:50 37.0 C 104 H 20 126/80 96 05/16/22 07:00 101 H 05/16/22 02:50 36.4 C L 99 H 16 121/72 95 05/16/22 01:10 99 H O2 Del Method 05/16/22 07:50 Room Air 05/16/22 07:00 05/16/22 02:50 Room Air 05/16/22 01:10 Laboratory Results 05/16/22 05/16/22 05/16/22 Range/Units 10:45 09:08 05:10 WBC (4.8-10.8) K/ul RBC (4.20-5.40) M/uL Hgb (12.0-16.0) g/dl Hct (37.0-47.0) % MCV (80.0-100.0) fL MCH (25.0-34.0) pg MCHC (32.0-36.0) g/dL RDW Std Deviation (36.4-46.3) fL RDW Coeff of Thee (11.5-14.5) % Plt Count (130-400) K/uL MPV (9.4-12.4) fL Sodium (136-145) mmol/L Potassium (3.5-5.1) mmol/L Chloride (98-107) mmol/L Carbon Dioxide (21-32) mmol/L Anion Gap (3-11) BUN (6-23) mg/dl Creatinine (0.6-1.2) mg/dl Est Cr Clr Drug Dosing ml/min Est GFR ( Amer) ml/min Est GFR (Non-Af Amer) ml/min BUN/Creatinine Ratio (10-20) Glucose (70-99(Fasting)) mg/dl Calcium (8.5-10.1) mg/dl Magnesium (1.7-2.4) mg/dl Total Bilirubin (0.2-1.0) mg/dl AST (13-39) U/L ALT (7-52) U/L Alkaline Phosphatase (34-104) U/L Total Creatine Kinase 32 (26-192) U/L Total Protein (6.0-8.3) gm/dl Albumin (3.4-5.0) gm/dl Globulin (2.5-4.0) gm/dl Albumin/Globulin Ratio (0.9-2) 25-OH Vitamin D Total 29.4 L (30-100) ng/ml Urine Color Yellow Urine Appearance Clear (Clear) Urine pH 6.5 (4.5-7.5) Ur Specific [place] 1.011 (1.000-1.030) Urine Protein Trace H (Negative) Urine Glucose (UA) Negative (Negative) Urine Ketones Negative (Negative) Urine Blood Negative (Negative) Urine Nitrite Negative (Negative) Urine Bilirubin Negative (Negative) Urine Urobilinogen Negative (Negative) Ur Leukocyte Esterase Negative (Negative) Urine WBC (Auto) 1-5 (0-5) /hpf Urine RBC (Auto) 0-4 (0-4) /hpf U Hyaline Cast (Auto) 1-5 (0-5) /lpf U Epithel Cells (Auto) 5-10 H (0-5) /lpf Urine Bacteria (Auto) Negative (Negative) 05/16/22 05/16/22 Range/Units 05:10 05:10 WBC 8.34 (4.8-10.8) K/ul RBC 2.74 L (4.20-5.40) M/uL Hgb 8.2 L (12.0-16.0) g/dl Hct 23.8 L (37.0-47.0) % MCV 86.9 (80.0-100.0) fL MCH 29.9 (25.0-34.0) pg MCHC 34.5 (32.0-36.0) g/dL RDW Std Deviation 45.8 (36.4-46.3) fL RDW Coeff of Thee 14.8 H (11.5-14.5) % Plt Count 232 (130-400) K/uL MPV 9.8 (9.4-12.4) fL Sodium 135 L (136-145) mmol/L Potassium 3.9 (3.5-5.1) mmol/L Chloride 99 (98-107) mmol/L Carbon Dioxide 32 (21-32) mmol/L Anion Gap 4 (3-11) BUN 41 H (6-23) mg/dl Creatinine 1.60 H (0.6-1.2) mg/dl Est Cr Clr Drug Dosing 23.5 ml/min Est GFR ( Amer) 33.0 ml/min Est GFR (Non-Af Amer) 28.5 ml/min BUN/Creatinine Ratio 25.6 H (10-20) Glucose 117 H (70-99(Fasting)) mg/dl Calcium 8.5 (8.5-10.1) mg/dl Magnesium 1.8 (1.7-2.4) mg/dl Total Bilirubin 1.3 H (0.2-1.0) mg/dl AST 13 (13-39) U/L ALT 9 (7-52) U/L Alkaline Phosphatase 108 H (34-104) U/L Total Creatine Kinase (26-192) U/L Total Protein 6.2 (6.0-8.3) gm/dl Albumin 3.2 L (3.4-5.0) gm/dl Globulin 3.0 (2.5-4.0) gm/dl Albumin/Globulin Ratio 1.1 (0.9-2) 25-OH Vitamin D Total (30-100) ng/ml Urine Color Urine Appearance (Clear) Urine pH (4.5-7.5) Ur Specific [place] (1.000-1.030) Urine Protein (Negative) Urine Glucose (UA) (Negative) Urine Ketones (Negative) Urine Blood (Negative) Urine Nitrite (Negative) Urine Bilirubin (Negative) Urine Urobilinogen (Negative) Ur Leukocyte Esterase (Negative) Urine WBC (Auto) (0-5) /hpf Urine RBC (Auto) (0-4) /hpf U Hyaline Cast (Auto) (0-5) /lpf U Epithel Cells (Auto) (0-5) /lpf Urine Bacteria (Auto) (Negative) Diagnostic Findings ECHOCARDIOGRAM Left ventricular systolic function is normal. Mild concentric LVH. Diastolic dysfunction grade III c/w marked congestive heart failure. RV moderate to severely dilated. RV systolic function mildly reduced. LA/RA mod-severely dilated. SEVERE tricuspid regurgitation. RVSP elevated at 50-60mmHg. IVC severely dilated PG Care Time/CCT Total # of Minutes Spent Total Time Spent with Patient: Total time spent is greater than 50% in coordination of care (as documented) at patient's floor/unit and/or counseling patient: Coding Level of Care Code 46036 SUB INP/OBS CARE 3/50MIN Diagnoses Hematoma of left lower leg S80.12XA Anemia D64.9 Atrial fibrillation I48.91 Atrial fibrillation type: unspecified Chronic kidney disease, stage IV (severe) N18.4 Systolic CHF, chronic I50.22 Acute on chronic systolic (congestive) heart failure I50.23 Pacemaker Z95.0 (1) Atrial fibrillation Atrial fibrillation type: unspecified Qualified Code(s): I48.91 - Unspecified atrial fibrillation
--- NOTE | 2022-05-16 09:22 | Surgery Progress Note ---
Date of Service May 16, 2022 Assessment & Plan (1) Hematoma of lower leg: Plan: Wound culture growing MRSA but this was a superficial swab. No sign of abscess or spreading cellulitis on clinical exam. Discussed with PA. Would recommend starting antibiotics. If worsens, may need OR drainage. Unfortunately, given the size of this hematoma, will likely have a large wound on her lower extremity following surgery. Also with risk of persistent bleeding. Admission and Anticipated Discharge Date Admission Date: May 14, 2022 Subjective Has pain in left leg with movement. Right leg also feeling "pinchy". Physical Exam Skin: left leg dressing changed: large tense hematoma with necrotic eschar over the entire holland (15 x 8 cm), no fluctuance, no purulent drainage although there is thick yellow serosanguinous drainage on gauze Right leg with smaller hematoma, no necrotic changes Results & Data ([facility]) Vital Signs (Past 12 Hours) Vital Signs Temp Pulse Pulse Resp BP BP Pulse Ox 05/16/22 07:50 37.0 C 104 H 20 126/80 96 05/16/22 07:00 101 H 05/16/22 02:50 36.4 C L 99 H 16 121/72 95 05/16/22 01:10 99 H O2 Del Method 05/16/22 07:50 Room Air 05/16/22 07:00 05/16/22 02:50 Room Air 05/16/22 01:10 Laboratory Results 05/16/22 05/16/22 05/16/22 Range/Units 09:08 05:10 05:10 WBC (4.8-10.8) K/ul RBC (4.20-5.40) M/uL Hgb (12.0-16.0) g/dl Hct (37.0-47.0) % MCV (80.0-100.0) fL MCH (25.0-34.0) pg MCHC (32.0-36.0) g/dL RDW Std Deviation (36.4-46.3) fL RDW Coeff of Thee (11.5-14.5) % Plt Count (130-400) K/uL MPV (9.4-12.4) fL Sodium 135 L (136-145) mmol/L Potassium 3.9 (3.5-5.1) mmol/L Chloride 99 (98-107) mmol/L Carbon Dioxide 32 (21-32) mmol/L Anion Gap 4 (3-11) BUN 41 H (6-23) mg/dl Creatinine 1.60 H (0.6-1.2) mg/dl Est Cr Clr Drug Dosing 23.5 ml/min Est GFR ( Amer) 33.0 ml/min Est GFR (Non-Af Amer) 28.5 ml/min BUN/Creatinine Ratio 25.6 H (10-20) Glucose 117 H (70-99(Fasting)) mg/dl Calcium 8.5 (8.5-10.1) mg/dl Magnesium 1.8 (1.7-2.4) mg/dl Total Bilirubin 1.3 H (0.2-1.0) mg/dl AST 13 (13-39) U/L ALT 9 (7-52) U/L Alkaline Phosphatase 108 H (34-104) U/L Total Creatine Kinase Pending Total Protein 6.2 (6.0-8.3) gm/dl Albumin 3.2 L (3.4-5.0) gm/dl Globulin 3.0 (2.5-4.0) gm/dl Albumin/Globulin Ratio 1.1 (0.9-2) 25-OH Vitamin D Total Pending 05/16/22 Range/Units 05:10 WBC 8.34 (4.8-10.8) K/ul RBC 2.74 L (4.20-5.40) M/uL Hgb 8.2 L (12.0-16.0) g/dl Hct 23.8 L (37.0-47.0) % MCV 86.9 (80.0-100.0) fL MCH 29.9 (25.0-34.0) pg MCHC 34.5 (32.0-36.0) g/dL RDW Std Deviation 45.8 (36.4-46.3) fL RDW Coeff of Thee 14.8 H (11.5-14.5) % Plt Count 232 (130-400) K/uL MPV 9.8 (9.4-12.4) fL Sodium (136-145) mmol/L Potassium (3.5-5.1) mmol/L Chloride (98-107) mmol/L Carbon Dioxide (21-32) mmol/L Anion Gap (3-11) BUN (6-23) mg/dl Creatinine (0.6-1.2) mg/dl Est Cr Clr Drug Dosing ml/min Est GFR ( Amer) ml/min Est GFR (Non-Af Amer) ml/min BUN/Creatinine Ratio (10-20) Glucose (70-99(Fasting)) mg/dl Calcium (8.5-10.1) mg/dl Magnesium (1.7-2.4) mg/dl Total Bilirubin (0.2-1.0) mg/dl AST (13-39) U/L ALT (7-52) U/L Alkaline Phosphatase (34-104) U/L Total Creatine Kinase Total Protein (6.0-8.3) gm/dl Albumin (3.4-5.0) gm/dl Globulin (2.5-4.0) gm/dl Albumin/Globulin Ratio (0.9-2) 25-OH Vitamin D Total
[2022-05-16] MEDS ORDERED: DAPTOmycin 250 MG in SYRINGE 0 ML IV SCH (09:45)
[2022-05-16] MEDS: ACETAMINOPHEN 325 MG TAB PO PRN ×2 (09:50→20:17)
[2022-05-16] MEDS: allopurinoL 100 MG TAB PO SCH (09:51)
[2022-05-16] MEDS: PANTOprazole 40 MG TAB PO SCH (09:51)
[2022-05-16] MEDS: METOPROLOL SUCC 50MG EXT REL TAB PO SCH ×2 (09:51→20:17)
[2022-05-16] MEDS: dilTIAZem HCL 120 MG CAPCR PO SCH (09:51)
[2022-05-16] MEDS: FUROSEMIDE INJ 20 MG/2 ML VIAL IV SCH (09:51)
[2022-05-16] MEDS: DAPTOmycin 250 MG in SYRINGE 0 ML IV SCH (10:41)
[2022-05-16 11:02] LABS: Appearance Urine Clear (Clear); Bacteria Urine Automated Negative (Negative); Bilirubin Urine Negative (Negative); Blood Urine Negative (Negative); Color Urine Yellow; Glucose Urine UA Negative (Negative); Ketones Urine Negative (Negative); Leukocyte Esterase Urine Negative (Negative); Nitrite Urine Negative (Negative); Protein Urine Trace (Negative); RBC Urine Automated 0-4 /hpf (0-4); Specific Gravity Urine 1.011 (1.000-1.030); Urobilinogen Urine Negative (Negative); pH Urine 6.5 (4.5-7.5)
[2022-05-16] MEDS ORDERED: POTASSIUM CHLORIDE CRTAB 20 MEQ TABCR PO STA (14:00)
--- NOTE | 2022-05-16 15:31 | XRay Report ---
XR chest 1V portable HISTORY: eval volume status, fall on admit COMPARISON: Chest 05/16/2021. FINDINGS: No pneumothorax. The heart remains mildly enlarged. Is left-sided dual-chamber pacemaker. A dvanced degenerative changes again noted within the shoulders. No acute fractures identified. No evid ence for pulmonary edema. Probable trace left pleural effusion. IMPRESSION: 1. Probable trace left pleural effusion. 2. Stable cardiomegaly. ACT 112: Negative or not required by law. Electronically signed by: Klaus Moreno M.D. 05/16/2022 3:29 PM
[2022-05-16] MEDS: LORazepam 0.5 MG TAB PO SCH (20:17)
[2022-05-16] MEDS: MELATONIN 3 MG TAB PO SCH (20:17)
[2022-05-16] MEDS: SERTRALINE HCL 50 MG TABLET PO SCH (20:17)
--- NOTE | 2022-05-17 07:37 | Ultrasound Report ---
ABDOMINAL ULTRASOUND, RIGHT UPPER QUADRANT HISTORY: Right upper quadrant pain. weakness, falls, eval jean pierre. COMPARISON: Abdomen and pelvis CT 03/30/2022. FINDINGS: Pancreas: The pancreatic tail is obscured by overlying bowel gas. The remaining portions of the pancr eas are within normal limits. Liver: Unremarkable. Gallbladder: The gallbladder is contracted. No gallbladder wall thickening. The gallbladder contains a few small stones/sludge. Negative sonographic Calvillo sign. CBD: 3 mm. Right kidney: No hydronephrosis. A 14 mm cyst. IMPRESSION: 1. Cholelithiasis/sludge. 2. No gallbladder wall thickening. 3. Right renal cyst. ACT 112: Negative or not required by law. Electronically signed by: Klaus Moreno M.D. 05/17/2022 7:36 AM
[2022-05-17 07:46] LABS: Hematocrit (blood only) 25.2 % (37.0-47.0); Hemoglobin 8.4 g/dl (12.0-16.0); Mean Corpuscular Hemoglobin 29.5 pg (25.0-34.0); Mean Corpuscular Hgb Conc 33.3 g/dL (32.0-36.0); Mean Corpuscular Volume 88.4 fL (80.0-100.0); Mean Platelet Volume 9.6 fL (9.4-12.4); Platelet Count 253 K/uL (130-400); RDW Coefficient of Variation 14.8 % (11.5-14.5); Red Blood Count 2.85 M/uL (4.20-5.40); White Blood Count 8.31 K/ul (4.8-10.8)
--- NOTE | 2022-05-17 08:04 | Hospitalist Progress Note ---
Date of Service May 17, 2022 Assessment & Plan (1) Hematoma of left lower leg: Plan: Hematoma of Left Lower Leg/Anemia/Falls suspect Hematoma 2nd to falls, anemia from bleeding from such. Denied any lightheadedness/dizziness prior to falls and tripped on a step through threshold in door Wound RN consult -- see imaging/recs Surgery on consult Per discussion with general surgery/concerns for needing I&D evacuation for healing -- deferring need for intervention currently but they will follow along to monitor for any need/infection. Wound RN following -- seen w/ RN 05/15, surgery to see this afternoon given concerns necrotic tissue --> per surgery, no intervention unless WBC elevation/fever, will monitor Hgb 7.0, given 1u PRBC on admit. Acute blood loss anemia from LE hematomas/fall on eliquis Hgb stable at 8.2 currently, transfuse <7 or w/ symptoms Eliquis continues on hold, per cards would NOT resume at dc -- voicemail left for daughter General surgery seen AM 05/16, rec to start abx although cx surface w/ +MRSA. Started Dapto IV 05/16, continues Discussed w/ surgery and continue current plan but may eventually need debridement next week. Wound RN following as well -- appreciate recs/assistance Monitor CBC on repeat w/ diuresis. PT/OT consulted --SNF rehab planned (2) Acute on chronic systolic (congestive) heart failure: Plan: History of such, on furosemide 20mg 2x/week listed in chart, patient states she was taking this every other day Weight UP on admit, 77-79kg -- appears was in the upper 58-67kg last year around this time Ordered lasix 20mg IV x 1 evening 05/14, scheduled for daily given BNP 652 Repeat ECHO (Prior echo 55-60%, grade II diastolic dysfunction) * Left ventricular systolic function is normal. Mild concentric LVH. Diastolic dysfunction grade III c/w marked congestive heart failure. RV moderate to severely dilated. RV systolic function mildly reduced. LA/RA mod-severely dilated. SEVERE tricuspid regurgitation. RVSP elevated at 50-60mmHg. IVC severely dilated Continues on lasix 20mg IV DAILY for CHF BUN/Cr stable Net output 1.6L 05/16 --> finally -295cc for admission when she had been net positive up until 1/29 Monitor daily weights, I&Os Cards consulted Cannot r/o underlying PE/DVT given ability to perform US doppler w/ her hematomas. Denies SOB/no hypotension/hypoxia. Could entertain V/Q, but anticoagulation would be difficult given above (3) Anemia: Plan: acute blood loss anemia --2nd to fall/leg hematoma and Eliquis use 1u PRBC on admit Hgb stable w/ continued diuresis Planning to STOP eliquis at discharge (4) Atrial fibrillation: Plan: afib rates 90-low 100s on monitor Continue metoprolol 50mg BID, diltiazem 120mg daily Eliquis on hold given bleeding/hematomas as above --per discussion w/ cards, would not resume TSH is elevated -- ?reactive from bleeding. T4/t3 wnl. Rec repeat TFT outpatient w/ PCP 4-6wks to ensure stable Keep mag ~2, K~4 they also rec keeping her metoprolol at current dosing unless HRs elevated further (5) Systolic CHF, chronic: (6) Chronic kidney disease, stage IV (severe): Plan: Baseline 1.31.8 Cr 1.78 on admit Cr 1.6--> 1.53 w/ continued diuretics and will continue Renal dose meds as able/avoid nephrotoxic agents BMP in AM (7) Pacemaker: Plan: Noted, pacemaker interrogation w/o issue Carotid stenosis 50% right, left 50-70%. No hemodynamically significant stenosis Patient not on aspirin therapy due to hematomas and bleeding, has been on Eliquis this is been held in the setting of anemia with hemoglobin near 7 Once hematomas are stable, likely would only continue ASA 81mg daily Should be on a statin, discussed w/ dr blandon, doubts benefit for beginning in 86yo patient-- defer to cards in f/u With regards to falls, checked RUQ US given TB/ALP elevation --> sludge/stones but no GB wall thickening. No RUQ pain on exam, could be from vol overload status? ALP normalized on repeat w/ diuretics as above (8) Depression: Plan: Continue sertraline 25 mg p.o. nightly DVT prophylaxis Pharmacal prophylaxis deferred due to active bleeding, SCDs not able to be used due to hematomas on legs. Follow clinically for signs of DVT -- unclear if would be able to get good/any imaging w/ current hematoma to leg, sensation and pulse currently intact, but will need close monitoring Plan continued inpatient stay Admission and Anticipated Discharge Date Admission Date: May 14, 2022 Supervising Physician Co-Signing Physician Notes The patient was not seen by me. Chart reviewed. Case discussed with KEENA Lewis. Agree with assessment and plan Subjective eval this morning, doing alright. eating breakfast. pain to leg but controlled w/ Tylenol currently. Discussed to let us know if any issues w/ increased pain or uncontrolled level with Tylenol. No chest pain or shortness of breath but discussed continued diuretics for volume overload, still with JVD on exam and Cr stable w/ continued diuretics. No fever/chills. Dressing removed with nursing, more eschar present but less drainage and swelling overall. Physical Exam Physical Exam: General: WD chronically ill appearing female laying flat in bed, NAD, reports feeling ok HEENT: head normocephalic, trachea midline, +JVD upright in bed Resp: CTA, no w/c, diminished in the bases, on room air CV: irregularly irregular (rates 80-100s), +systolic murmur, +S3 pulses diminished but palpable, + LE edema decreased slightly GI: +BS, soft/NT, colostomy w/ stool in bag MSK/Neuro/skin: moves extremities on command, no facial droop/slurred speech, hematoma to bilateral LE, significant hematoma to lateral left lower leg , necrotic tissue present and almost covering entire area (see imaging), less bloody drainage, yellow drainage noted to adaptic, less edema, decreased turgor, pulses palpable, tender to palpation around hematomas, no abscess appreciated Psych: AOx3, intermittent forgetfulness but reoriented easily, pleasant and cooperative, fatigued appearing Results & Data Results & Data ([facility]) Vital Signs (Past 12 Hours) Vital Signs Temp Pulse Pulse Resp BP Pulse Ox O2 Del Method 05/17/22 07:29 36.7 C 105 H 20 133/76 96 Room Air 05/17/22 03:51 36.9 C 76 18 137/80 98 Room Air 05/17/22 00:17 84 05/16/22 23:14 36.7 C 99 H 20 118/71 96 Room Air Laboratory Results 05/17/22 05/17/22 Range/Units 07:10 07:10 WBC 8.31 (4.8-10.8) K/ul RBC 2.85 L (4.20-5.40) M/uL Hgb 8.4 L (12.0-16.0) g/dl Hct 25.2 L (37.0-47.0) % MCV 88.4 (80.0-100.0) fL MCH 29.5 (25.0-34.0) pg MCHC 33.3 (32.0-36.0) g/dL RDW Std Deviation 47.0 H (36.4-46.3) fL RDW Coeff of Thee 14.8 H (11.5-14.5) % Plt Count 253 (130-400) K/uL MPV 9.6 (9.4-12.4) fL Sodium 137 (136-145) mmol/L Potassium 4.1 (3.5-5.1) mmol/L Chloride 99 (98-107) mmol/L Carbon Dioxide 30 (21-32) mmol/L Anion Gap 8 (3-11) BUN 42 H (6-23) mg/dl Creatinine 1.53 H (0.6-1.2) mg/dl Est Cr Clr Drug Dosing 24.4 ml/min Est GFR ( Amer) 34.8 ml/min Est GFR (Non-Af Amer) 30.1 ml/min BUN/Creatinine Ratio 27.5 H (10-20) Glucose 115 H (70-99(Fasting)) mg/dl Calcium 8.8 (8.5-10.1) mg/dl Magnesium 2.0 (1.7-2.4) mg/dl Total Bilirubin 1.1 H (0.2-1.0) mg/dl Direct Bilirubin Pending AST 13 (13-39) U/L ALT 9 (7-52) U/L Alkaline Phosphatase 104 (34-104) U/L Total Protein 6.5 (6.0-8.3) gm/dl Albumin 3.2 L (3.4-5.0) gm/dl PG Care Time/CCT Total # of Minutes Spent Total Time Spent with Patient: Total time spent is greater than 50% in coordination of care (as documented) at patient's floor/unit and/or counseling patient: Coding Level of Care Code 51538 SUB INP/OBS CARE 3/50MIN Diagnoses Hematoma of left lower leg S80.12XA Acute on chronic systolic (congestive) heart failure I50.23 Anemia D64.9 Atrial fibrillation I48.91 Atrial fibrillation type: unspecified Systolic CHF, chronic I50.22 Chronic kidney disease, stage IV (severe) N18.4 Pacemaker Z95.0 Depression F32.A (1) Atrial fibrillation Atrial fibrillation type: unspecified Qualified Code(s): I48.91 - Unspecified atrial fibrillation
[2022-05-17 08:05] LABS: Albumin Level 3.2 gm/dl (3.4-5.0); Bilirubin,Total 1.1 mg/dl (0.2-1.0); Calcium 8.8 mg/dl (8.5-10.1); Potassium 4.1 mmol/L (3.5-5.1)
[2022-05-17 08:11] LABS: BUN Creatinine Ratio 27.5 (10-20); Creatinine Clr Calc Pharmacy 24.4 ml/min; Est GFR (African American) 34.8 ml/min; Est GFR (Non-African American) 30.1 ml/min; Total Protein 6.5 gm/dl (6.0-8.3)
[2022-05-17] MEDS: allopurinoL 100 MG TAB PO SCH (09:35)
[2022-05-17] MEDS: METOPROLOL SUCC 50MG EXT REL TAB PO SCH ×2 (09:35→20:32)
[2022-05-17] MEDS: dilTIAZem HCL 120 MG CAPCR PO SCH (09:36)
[2022-05-17] MEDS: PANTOprazole 40 MG TAB PO SCH (09:36)
[2022-05-17] MEDS: FUROSEMIDE INJ 20 MG/2 ML VIAL IV SCH (09:36)
[2022-05-17] MEDS: ACETAMINOPHEN 325 MG TAB PO PRN ×2 (09:59→18:21)
--- NOTE | 2022-05-17 13:47 | Surgery Progress Note ---
Date of Service May 17, 2022 Assessment & Plan (1) Hematoma of lower leg: Plan: On antibiotics as superficial wound culture grew MRSA. Overall, clinical picture unchanged. May need debridement of eschar vs aspiration as hematoma liquifies. No new recommendations - continue dressings. Admission and Anticipated Discharge Date Admission Date: May 14, 2022 Subjective Pt still with pain in both lower extremities, worse in the knees today also. Dressing changed by nursing. Photo examined - less swelling today. No cellulitic changes Physical Exam Skin: large left lower leg hematoma with eschar, softening, still very painful/ tender. no abscess or purulent drainage smaller right sided lower leg hematoma Results & Data ([facility]) Vital Signs (Past 12 Hours) Vital Signs Temp Pulse Resp BP BP Pulse Ox O2 Del Method 05/17/22 11:04 36.7 C 105 H 20 120/72 96 Room Air 05/17/22 07:29 36.7 C 105 H 20 133/76 96 Room Air 05/17/22 03:51 36.9 C 76 18 137/80 98 Room Air Laboratory Results 05/17/22 05/17/22 Range/Units 07:10 07:10 WBC 8.31 (4.8-10.8) K/ul RBC 2.85 L (4.20-5.40) M/uL Hgb 8.4 L (12.0-16.0) g/dl Hct 25.2 L (37.0-47.0) % MCV 88.4 (80.0-100.0) fL MCH 29.5 (25.0-34.0) pg MCHC 33.3 (32.0-36.0) g/dL RDW Std Deviation 47.0 H (36.4-46.3) fL RDW Coeff of Thee 14.8 H (11.5-14.5) % Plt Count 253 (130-400) K/uL MPV 9.6 (9.4-12.4) fL Sodium 137 (136-145) mmol/L Potassium 4.1 (3.5-5.1) mmol/L Chloride 99 (98-107) mmol/L Carbon Dioxide 30 (21-32) mmol/L Anion Gap 8 (3-11) BUN 42 H (6-23) mg/dl Creatinine 1.53 H (0.6-1.2) mg/dl Est Cr Clr Drug Dosing 24.4 ml/min Est GFR ( Amer) 34.8 ml/min Est GFR (Non-Af Amer) 30.1 ml/min BUN/Creatinine Ratio 27.5 H (10-20) Glucose 115 H (70-99(Fasting)) mg/dl Calcium 8.8 (8.5-10.1) mg/dl Magnesium 2.0 (1.7-2.4) mg/dl Total Bilirubin 1.1 H (0.2-1.0) mg/dl Direct Bilirubin Pending AST 13 (13-39) U/L ALT 9 (7-52) U/L Alkaline Phosphatase 104 (34-104) U/L Total Protein 6.5 (6.0-8.3) gm/dl Albumin 3.2 L (3.4-5.0) gm/dl
[2022-05-17 14:55] LABS: Bilirubin Direct 0.2 mg/dl (0-0.2)
[2022-05-17] MEDS: MELATONIN 3 MG TAB PO SCH (20:32)
[2022-05-17] MEDS: SERTRALINE HCL 50 MG TABLET PO SCH (20:32)
[2022-05-17] MEDS: LORazepam 0.5 MG TAB PO SCH (20:32)
[2022-05-18 06:36] LABS: Basophils # (auto) 0.03 K/uL (0-0.2); Basophils % (auto) 0.4 %; Eosinophils # (auto) 0.18 K/uL (0-0.50); Eosinophils % (auto) 2.4 %; Hematocrit (blood only) 23.7 % (37.0-47.0); Immature Granulocytes # (auto) 0.17 K/uL (0.01-0.20); Immature Granulocytes % (auto) 2.3 %; Lymphocytes # (auto) 0.54 K/uL (1.2-3.4); Lymphocytes % (auto) 7.3 %; Mean Corpuscular Hemoglobin 29.5 pg (25.0-34.0); Mean Corpuscular Hgb Conc 33.8 g/dL (32.0-36.0); Mean Corpuscular Volume 87.5 fL (80.0-100.0); Mean Platelet Volume 9.7 fL (9.4-12.4); Monocytes # (auto) 1.34 K/uL (0.11-0.59); Monocytes % (auto) 18.1 %; Neutrophils # (auto) 5.15 K/uL (1.40-6.50); Neutrophils % (auto) 69.5 %; Platelet Count 257 K/uL (130-400); RDW Coefficient of Variation 14.7 % (11.5-14.5); RDW Standard Deviation 46.1 fL (36.4-46.3); Red Blood Count 2.71 M/uL (4.20-5.40); White Blood Count 7.41 K/ul (4.8-10.8)
[2022-05-18 06:52] LABS: Albumin Level 2.9 gm/dl (3.4-5.0); Calcium 8.6 mg/dl (8.5-10.1); Magnesium 1.8 mg/dl (1.7-2.4)
[2022-05-18 06:58] LABS: Albumin Globulin Ratio 0.9 (0.9-2); BUN Creatinine Ratio 29.1 (10-20); Creatinine Clr Calc Pharmacy 24.9 ml/min; Est GFR (African American) 35.4 ml/min; Est GFR (Non-African American) 30.5 ml/min; Globulin 3.2 gm/dl (2.5-4.0); Total Protein 6.1 gm/dl (6.0-8.3)
--- NOTE | 2022-05-18 08:14 | Hospitalist Progress Note ---
Date of Service May 18, 2022 Assessment & Plan (1) Hematoma of left lower leg: Plan: Hematoma of Left Lower Leg/Anemia/Falls suspect Hematoma 2nd to falls, anemia from bleeding from such. Denied any lightheadedness/dizziness prior to falls and tripped on a step through threshold in door Wound RN consult -- see imaging/recs Surgery on consult Per discussion with general surgery/concerns for needing I&D evacuation for healing -- deferring need for intervention currently but they will follow along to monitor for any need/infection. Wound RN following -- seen w/ RN 05/15, surgery to see this afternoon given concerns necrotic tissue --> per surgery, no intervention unless WBC elevation/fever, will monitor Hgb 7.0, given 1u PRBC on admit. Acute blood loss anemia from LE hematomas/fall on eliquis Hgb stable at 8.0, continues w/ some bleeding to LE, transfuse <7 or w/ symptoms Eliquis continues on hold, per cards would NOT resume at dc --discussed with daughter Annamaria General surgery seen AM 05/16, rec to start abx although cx surface w/ +MRSA --> Dapto IV continues Per discussion with general surgery today, planning for OR tomorrow for debridement. Will need to be NPO at midnight Added oxycodone prn for pain control, monitor response/additional meds as needed Wound RN to continue to follow//wound vac/etc Monitor labs on repeat Per prior PT/OT, SNF already in works, CM to follow (2) Acute on chronic systolic (congestive) heart failure: Plan: History of such, on furosemide 20mg 2x/week listed in chart, patient states she was taking this every other day Weight UP on admit, 77-79kg -- appears was in the upper 58-67kg last year around this time Ordered lasix 20mg IV x 1 evening 05/14, scheduled for daily given BNP 652 Repeat ECHO (Prior echo 55-60%, grade II diastolic dysfunction) * Left ventricular systolic function is normal. Mild concentric LVH. Diastolic dysfunction grade III c/w marked congestive heart failure. RV moderate to severely dilated. RV systolic function mildly reduced. LA/RA mod-severely dilated. SEVERE tricuspid regurgitation. RVSP elevated at 50-60mmHg. IVC severely dilated Continues on lasix 20mg IV DAILY for CHF BUN/Cr stable Net output 1.6L 05/16 --> finally -295cc for admission 05/17 and now net negative -1.3L Monitor daily weights, I&Os Cards consulted -- high risk for surgery. WILL NEED MAGNET OVER PACER Cannot r/o underlying PE/DVT given ability to perform US doppler w/ her hematomas. Denies SOB/no hypotension/hypoxia. Could entertain V/Q, but anticoagulation would be difficult given above (3) Anemia: Plan: acute blood loss anemia --2nd to fall/leg hematoma and Eliquis use 1u PRBC on admit Hgb stable w/ continued diuresis Planning to STOP eliquis at discharge (4) Atrial fibrillation: Plan: afib rates 80-100s on monitor Continue metoprolol 50mg BID, diltiazem 120mg daily Eliquis on hold given bleeding/hematomas as above --per discussion w/ cards, would not resume TSH is elevated -- ?reactive from bleeding. T4/t3 wnl. Rec repeat TFT outpatient w/ PCP 4-6wks to ensure stable Keep mag ~2, K~4 -- 1gm IV mag for today, monitor on repeat they also rec keeping her metoprolol at current dosing unless HRs elevated further (5) Systolic CHF, chronic: (6) Chronic kidney disease, stage IV (severe): Plan: Baseline 1.31.8 Cr 1.78 on admit Cr 1.6--> 1.53--> 1.51 w/ continued diuretics and will continue Renal dose meds as able/avoid nephrotoxic agents BMP in AM (7) Pacemaker: Plan: Noted, pacemaker interrogation w/o issue Carotid stenosis 50% right, left 50-70%. No hemodynamically significant stenosis Patient not on aspirin therapy due to hematomas and bleeding, has been on Eliquis this is been held in the setting of anemia with hemoglobin near 7 Once hematomas are stable, likely would only continue ASA 81mg daily Should be on a statin, discussed w/ dr blandon, doubts benefit for beginning in 86yo patient-- defer to cards in f/u With regards to falls, checked RUQ US given TB/ALP elevation --> sludge/stones but no GB wall thickening. No RUQ pain on exam, could be from vol overload status? ALP normalized on repeat w/ diuretics as above (8) Depression: Plan: Continue sertraline 25 mg p.o. nightly DVT prophylaxis Pharmacal prophylaxis deferred due to active bleeding, SCDs not able to be used due to hematomas on legs. Follow clinically for signs of DVT -- unclear if would be able to get good/any imaging w/ current hematoma to leg, sensation and pulse currently intact, but will need close monitoring Plan continued inpatient stay NPO at midnight for OR tomorrow for debridement Admission and Anticipated Discharge Date Admission Date: May 14, 2022 Supervising Physician Co-Signing Physician Notes The patient was not seen by me. Chart reviewed. Case discussed with KEENA Lewis. Agree with assessment and plan Subjective Eval this morning, seen by surgery. leg painful but medications helping some. to alert for any increased need. Wound RN to also follow w/ surgery. Denies fever/chills, no chest pain or shortness of breath. Discussed continuing Lasix for now to optimize volume status. Wants us to let her daughter Annamaria know about need for surgery for tomorrow. Physical Exam Physical Exam: General: WD chronically ill appearing female laying flat in bed, NAD, reports feeling ok but fatigued and having some LE pain at site of hematoma on the left LE HEENT: head normocephalic, trachea midline, +JVD upright in bed slightly improved Resp: CTA, no w/c, diminished in the bases, on room air CV: irregularly irregular (rates 80-100s), +systolic murmur, +S3 pulses diminished but palpable, + LE edema decreased slightly GI: +BS, soft/NT, colostomy w/ stool in bag MSK/Neuro/skin: moves extremities on command, no facial droop/slurred speech, hematoma to b/l LE, stable on the RLE, but increased necrotic tissue covering entire wound to the lateral RLE, tender to palpation, warm, pulses palpable but diminished, Psych: AOx3, intermittent forgetfulness but reoriented easily, pleasant and cooperative, fatigued appearing Results & Data Results & Data ([facility]) Vital Signs (Past 12 Hours) Vital Signs Temp Pulse Pulse Resp BP BP Pulse Ox 05/18/22 07:40 36.9 C 91 H 18 139/76 95 05/18/22 07:17 87 05/18/22 02:42 36.7 C 85 18 119/66 97 05/17/22 23:52 90 01/29/23 22:51 36.7 C 86 18 110/63 93 O2 Del Method 05/18/22 07:40 Room Air 05/18/22 07:17 05/18/22 02:42 Room Air 05/17/22 23:52 05/17/22 22:51 Room Air Laboratory Results 05/18/22 05/18/22 05/17/22 Range/Units 05:28 05:28 07:10 WBC 7.41 (4.8-10.8) K/ul RBC 2.71 L (4.20-5.40) M/uL Hgb 8.0 L (12.0-16.0) g/dl Hct 23.7 L (37.0-47.0) % MCV 87.5 (80.0-100.0) fL MCH 29.5 (25.0-34.0) pg MCHC 33.8 (32.0-36.0) g/dL RDW Std Deviation 46.1 (36.4-46.3) fL RDW Coeff of Thee 14.7 H (11.5-14.5) % Plt Count 257 (130-400) K/uL MPV 9.7 (9.4-12.4) fL Immature Gran % (Auto) 2.3 % Neut % (Auto) 69.5 % Lymph % (Auto) 7.3 % [place] % (Auto) 18.1 % Eos % (Auto) 2.4 % Baso % (Auto) 0.4 % Neut # (Auto) 5.15 (1.40-6.50) K/uL Lymph # (Auto) 0.54 L (1.2-3.4) K/uL [place] # (Auto) 1.34 H (0.11-0.59) K/uL Eos # (Auto) 0.18 (0-0.50) K/uL Baso # (Auto) 0.03 (0-0.2) K/uL Immature Gran # (Auto) 0.17 (0.01-0.20) K/uL Sodium 136 (136-145) mmol/L Potassium 4.0 (3.5-5.1) mmol/L Chloride 99 (98-107) mmol/L Carbon Dioxide 31 (21-32) mmol/L Anion Gap 6 (3-11) BUN 44 H (6-23) mg/dl Creatinine 1.51 H (0.6-1.2) mg/dl Est Cr Clr Drug Dosing 24.9 ml/min Est GFR ( Amer) 35.4 ml/min Est GFR (Non-Af Amer) 30.5 ml/min BUN/Creatinine Ratio 29.1 H (10-20) Glucose 112 H (70-99(Fasting)) mg/dl Calcium 8.6 (8.5-10.1) mg/dl Magnesium 1.8 (1.7-2.4) mg/dl Total Bilirubin 1.0 (0.2-1.0) mg/dl Direct Bilirubin 0.2 (0-0.2) mg/dl AST 12 L (13-39) U/L ALT 9 (7-52) U/L Alkaline Phosphatase 98 (34-104) U/L Total Protein 6.1 (6.0-8.3) gm/dl Albumin 2.9 L (3.4-5.0) gm/dl Globulin 3.2 (2.5-4.0) gm/dl Albumin/Globulin Ratio 0.9 (0.9-2) PG Care Time/CCT Total # of Minutes Spent Total Time Spent with Patient: Total time spent is greater than 50% in coordination of care (as documented) at patient's floor/unit and/or counseling patient: Coding Level of Care Code 64508 SUB INP/OBS CARE 3/50MIN Diagnoses Hematoma of left lower leg S80.12XA Acute on chronic systolic (congestive) heart failure I50.23 Anemia D64.9 Atrial fibrillation I48.91 Atrial fibrillation type: unspecified Systolic CHF, chronic I50.22 Chronic kidney disease, stage IV (severe) N18.4 Pacemaker Z95.0 Depression F32.A (1) Atrial fibrillation Atrial fibrillation type: unspecified Qualified Code(s): I48.91 - Unspecified atrial fibrillation
--- NOTE | 2022-05-18 08:21 | Surgery Progress Note ---
Date of Service May 18, 2022 Assessment & Plan (1) Hematoma of lower leg: Plan: This is a dramatic change from when I had seen her last week. The skin is now necrotic and will need debrided. I will evacuate hematoma at the same time. We will plan on having the wound nurse place a wound VAC following debridement. I discussed the options and risks with the patient and she is agreeable. We will put her on the OR schedule for tomorrow. Admission and Anticipated Discharge Date Admission Date: May 14, 2022 Subjective Patient seen. Her leg is actually starting to feel a little bit better. No new complaints. Physical Exam Constitutional: WD/WN, vitals as above no acute distress and not ill appearing Eyes: PERRL, conjunctivae normal, anicteric sclerae EOM intact bilaterally ENMT: external ear and nose normal, oropharynx normal Ears: no hearing impairment Neck: trachea midline, no thyromegaly Respiratory: normal respiratory effort; no respiratory distress and does not use accessory muscles Cardiovascular: Rate/Rhythm: regular rate and regular rhythm Gastrointestinal (Abdomen): normal bowel sounds, soft, nontender, no hepatosplenomegaly Skin: The hematoma is perhaps a little smaller with less swelling however now all of the skin overlying the hematoma has become necrotic. There is no sign of infection. Small amount of hematoma oozing from around the edges of the necrotic skin. Psychiatric: Orientation: alert, oriented x 3 and cooperative Results & Data ([place]) Vital Signs (Past 12 Hours) Vital Signs Temp Pulse Pulse Resp BP BP Pulse Ox 05/18/22 07:40 36.9 C 91 H 18 139/76 95 05/18/22 07:17 87 05/18/22 02:42 36.7 C 85 18 119/66 97 05/17/22 23:52 90 05/17/22 22:51 36.7 C 86 18 110/63 93 O2 Del Method 05/18/22 07:40 Room Air 05/18/22 07:17 05/18/22 02:42 Room Air 05/17/22 23:52 05/17/22 22:51 Room Air PG Care Time/CCT Total # of Minutes Spent Total Time Spent with Patient: Total time spent is greater than 50% in coordination of care (as documented) at patient's floor/unit and/or counseling patient: Coding Level of Care Code 17549 SUB INP/OBS CARE 2/35MIN Diagnoses Hematoma of lower leg S80.10XA
[2022-05-18] MEDS: METOPROLOL SUCC 50MG EXT REL TAB PO SCH ×2 (08:46→22:06)
[2022-05-18] MEDS: FUROSEMIDE INJ 20 MG/2 ML VIAL IV SCH (08:47)
[2022-05-18] MEDS: PANTOprazole 40 MG TAB PO SCH (08:47)
[2022-05-18] MEDS: allopurinoL 100 MG TAB PO SCH (08:47)
[2022-05-18] MEDS: dilTIAZem HCL 120 MG CAPCR PO SCH (08:47)
--- NOTE | 2022-05-18 08:57 | Palliative Care Consultation ---
Date of Consultation May 18, 2022 Assessment & Plan (1) Pain: with b/l LE wounds and hematomas Continue tylenol as needed. She expresses concern about pain control and tells me that she's worried about suffering. Discussed with her daughters by phone and with hospitalist. Will add prn oxycodone if tylenol ineffective for pain. (2) Anxiety: She is on routine and prn lorazepam. Per her daughters, she is generally an anxious person. (3) Palliative care encounter: Due to her anxiety, Mrs. Truong is not able to discuss goals of care at this time. I did speak with her daughters about whether she had discussed her wishes in the past. They tell me that she has completed an advance directive and read it to me on the phone. It is actually a POLST form that was completed in 2020 by a [employer], though daughters are not sure where. The POLST indicates that she would not want resuscitation but would want limited interventions, including medications, cardiac monitoring and return to the hospital. They would determine antibiotics at the time of the illness. They feel that this accurately reflects her current wishes and would like this to remain as is. Discussed with hospitalist. History of Present Illness Reason for Consultation: goals of care Requesting Physician: OBED Lewis Attending Physician: Trenton Rogers MD History of Present Illness 86yo lady with history of afib on Eliquis, heart failure and pacemaker who presented with large bilateral LE hematomas after a fall. She has had difficulty with ambulation and managing at home. She is being followed by surgery for possible I&D and will be going to OR tomorrow for evacuation of hematoma and debridement of necrotic tissue. She is drowsy but easily arousable. She is very anxious. She denies pain but does say that she has some discomfort in her legs. She is concerned about pain with surgery tomorrow. Allergies Allergy/AdvReac Type Severity Reaction Status Date / Time Iodinated Contrast Media Allergy Severe Difficulty Verified 05/12/22 16:49 Breathing, Severe Hives cephalexin Allergy Unknown Unknown Verified 05/12/22 16:49 diphenhydramine Allergy Unknown DOES NOT Verified 05/12/22 16:49 REMEMBER mushroom Allergy Unknown Unknown Verified 05/12/22 16:49 potassium chloride Allergy Unknown unknown Verified 05/12/22 16:49 Sulfa (Sulfonamide Allergy Unknown Unknown Verified 05/12/22 16:49 Antibiotics) Home Medications Medication Instructions Recorded Confirmed Type allopurinol 100 mg tablet 100 mg PO QAM 06/20/19 05/12/22 History multivit with 1 tab PO QAM 06/20/19 05/12/22 History mivigitw-uxox-SX-lutein 8 mg iron-400 mcg-300 mcg tablet (Centrum Silver Women) nitroglycerin 0.4 mg sublingual 0.4 mg sublingual DIRECTED PRN 06/20/19 05/12/22 History tablet (Nitrostat) Chest Pain omeprazole 20 mg capsule,delayed 20 mg PO QAM 06/20/19 05/12/22 History release vit C 250 mg-vit E 90 mg-zinc 40 1 tab PO BID 06/20/19 05/12/22 History mg-copper 1 fw-nzwkxe-edyjvk capsule (PreserVision AREDS-2) apixaban 2.5 mg tablet (Eliquis) 2.5 mg PO BID 10/06/19 05/12/22 History furosemide 20 mg tablet 20 mg PO 2XWK 10/06/19 05/12/22 History sertraline 25 mg tablet 25 mg PO HS 10/06/19 05/12/22 History lorazepam 0.5 mg tablet 0.5 mg PO HS 3 days #3 tabs 10/10/19 05/12/22 Rx diclofenac sodium 1 % topical gel 4 g EXT Q6 PRN pain #100 grams 07/31/21 05/12/22 Rx (Voltaren Arthritis Pain) diltiazem HCl 120 mg 120 mg PO QAM #30 caps 07/31/21 05/12/22 Rx capsule,extended release 24 hr melatonin 3 mg tablet 3 mg PO HS #30 tabs 07/31/21 05/12/22 Rx metoprolol succinate 50 mg 50 mg PO BID 05/09/22 05/12/22 History tablet,extended release 24 hr Patient History Medical History Abnormal stress test Ambulatory dysfunction Atrial fibrillation Atrial fibrillation (04/24/13) Bilateral leg edema Chronic kidney disease, stage IV (severe) Closed fracture of right distal fibula Depression Disc displacement, 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) Dizziness DJD (degenerative joint disease) Fall GI bleed Gouty arthritis Hemarthrosis Hip hematoma, left Left knee DJD Osteoarthritis Pacemaker Right rib fracture Systolic CHF, chronic Weakness Surgical History H/O: hysterectomy (03/28/12) Family History Other Family history non-contributory Social History Smoking Status: Never smoker Hx Alcohol Use: No Hx Substance Use: No Preferred Language: Danish Communication Ability: Effective Technical Adjuster Required: No Beliefs That Will Affect Care: None marital status: / Current Living Situation: Alone Feels Safe at Home: Yes Safety Concerns: Feels Safe At This Time Assistive Devices: Glasses and Walker Assistive Devices Comment: chair lift Review of Systems Review of Systems: ESAS Pain 1/3 Dyspnea 0/3 Anxiety 2/3 Nausea 0/3 Drowsiness 1/3 Physical Exam Constitutional: no acute distress ENMT: Mouth: + dry oral mucous membranes Respiratory: normal respiratory effort; no labored breathing Cardiovascular: Rate/Rhythm: + irregularly irregular Gastrointestinal (Abdomen): colostomy Musculoskeletal: dressing b/l LEs Neurologic: mild confusion Genitourinary: incontinent Results & Data ([facility]) Vital Signs (Past 12 Hours) Vital Signs Temp Pulse Pulse Resp BP BP Pulse Ox 05/18/22 07:40 98.4 F 91 H 18 139/76 95 05/18/22 07:17 87 05/18/22 02:42 98.1 F 85 18 119/66 97 05/17/22 23:52 90 05/17/22 22:51 98.1 F 86 18 110/63 93 O2 Del Method 05/18/22 07:40 Room Air 05/18/22 07:17 05/18/22 02:42 Room Air 05/17/22 23:52 05/17/22 22:51 Room Air PG Care Time/CCT Total # of Minutes Spent Total Time Spent with Patient: Total time spent is greater than 50% in coordination of care (as documented) at patient's floor/unit and/or counseling patient: Coding Level of Care Code 97010 INT INP/OBS CARE 1/40MIN Diagnoses Pain R52 Anxiety F41.9 Palliative care encounter Z51.5
--- NOTE | 2022-05-18 09:34 | Cardiology Progress Note ---
Date of Service May 18, 2022 Assessment & Plan (1) Hematoma of lower leg: Plan Impression: 1. Chronic atrial fibrillation with rate control strategy 2. Chronic diastolic heart failure 3. History of pacemaker 4. 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 History of mechanical falls 6. Echo 05/15/2021 showing EF of 55%, Grade III diastolic dysfunction, right ventricle moderate to severely dilated, mildly reduced right ventricular systolic function, severe tricuspid regurgitation, elevated RVSP 50-60 mmHg 7. Anemia secondary to hematoma requiring 1u PRBCs this visit. Ms. Truong continues to be in a rate controlled atrial fibrillation. She has g enerally been maintaining rates below 100 bpm. I would not recommending adjusting her rate control as long as she is maintained under 110 bpm. Discussed Eliquis with hospitalist, and I would recommend she stay off of anticoagulation. She is frail and has had frequent falls, now with significant injury requiring blood transfusion. She has a history of chronic heart failure as well as chronic lower extremity edema. Her BNP was elevated on admission.Her last NT-Pro BNP in the office was 5,000. She is intravascularly dry at baseline. She can continue gentle diuresis with IV furosemide. She does have a negative fluid balance today. Continue to check daily kidney function and discontinue IV furosemide when BUN and creat start to trend higher than baseline. Currently she is below her baseline. She can be transitioned to daily 20 mg furosemide po when IV diuresis discontinued. I agree with the palliative care consult placed by the hospitalists given Ms. Truong's progressive diastolic heart failure. Admission and Anticipated Discharge Date Admission Date: May 14, 2022 Physical Exam Constitutional: WD/WN, vitals as above Respiratory: normal respiratory effort, lungs clear to auscultation Cardiovascular: Rate/Rhythm: + abnormal rate and + abnormal rhythm Heart Sounds: + murmur (3/6 systoli llsb) Extremities: + edema (significant bilateral LE edema) Neurologic: moves all extremities and awake Psychiatric: A+Ox3, euthymic affect Results & Data ([facility]) Vital Signs (Past 12 Hours) Vital Signs Temp Pulse Pulse Resp BP BP Pulse Ox 05/18/22 07:40 36.9 C 91 H 18 139/76 95 05/18/22 07:17 87 05/18/22 02:42 36.7 C 85 18 119/66 97 05/17/22 23:52 90 05/17/22 22:51 36.7 C 86 18 110/63 93 O2 Del Method 05/18/22 07:40 Room Air 05/18/22 07:17 05/18/22 02:42 Room Air 05/17/22 23:52 05/17/22 22:51 Room Air
[2022-05-18] MEDS: DAPTOmycin 250 MG in SYRINGE 0 ML IV SCH (09:50)
[2022-05-18] MEDS: ACETAMINOPHEN 325 MG TAB PO PRN (09:59)
[2022-05-18] MEDS: oxyCODONE HCL IR 5 MG TAB (IMMEDIATE RELEASE) PO SCH ×2 (11:51→15:05)
[2022-05-18] MEDS ORDERED: MAGNESIUM SULFATE / D5W 1 GM/100 ML BAG IV ONE (12:11)
[2022-05-18] MEDS: SERTRALINE HCL 50 MG TABLET PO SCH (22:06)
[2022-05-18] MEDS: LORazepam 0.5 MG TAB PO SCH (22:06)
[2022-05-18] MEDS: MELATONIN 3 MG TAB PO SCH (22:06)
[2022-05-19 06:48] LABS: Hematocrit (blood only) 24.3 % (37.0-47.0); Hemoglobin 8.2 g/dl (12.0-16.0); Mean Corpuscular Hemoglobin 29.5 pg (25.0-34.0); Mean Corpuscular Hgb Conc 33.7 g/dL (32.0-36.0); Mean Corpuscular Volume 87.4 fL (80.0-100.0); Mean Platelet Volume 9.5 fL (9.4-12.4); Platelet Count 279 K/uL (130-400); RDW Coefficient of Variation 14.6 % (11.5-14.5); RDW Standard Deviation 45.9 fL (36.4-46.3); Red Blood Count 2.78 M/uL (4.20-5.40); White Blood Count 7.31 K/ul (4.8-10.8)
[2022-05-19 07:06] LABS: BUN Creatinine Ratio 30.1 (10-20); Calcium 8.7 mg/dl (8.5-10.1); Creatinine Clr Calc Pharmacy 23.1 ml/min; Est GFR (African American) 32.3 ml/min; Est GFR (Non-African American) 27.8 ml/min; Magnesium 2.1 mg/dl (1.7-2.4)
[2022-05-19] MEDS: PANTOprazole 40 MG TAB PO SCH (08:04)
[2022-05-19] MEDS: CHOLECALCIFEROL 1,000 UNITS 25 MCG TAB PO SCH (08:04)
[2022-05-19] MEDS: METOPROLOL SUCC 50MG EXT REL TAB PO SCH ×2 (08:04→23:00)
[2022-05-19] MEDS: dilTIAZem HCL 120 MG CAPCR PO SCH (08:05)
[2022-05-19] MEDS: allopurinoL 100 MG TAB PO SCH (08:05)
--- NOTE | 2022-05-19 08:16 | Hospitalist Progress Note ---
Date of Service May 19, 2022 Assessment & Plan (1) Hematoma of left lower leg: Plan: Hematoma of Left Lower Leg/Anemia/Falls suspect Hematoma 2nd to falls, anemia from bleeding from such. Denied any lightheadedness/dizziness prior to falls and tripped on a step through threshold in door Wound RN consult -- see imaging/recs has received 1u PRBC, hgb stable (on diuresis as below), holding ELiquis (not to be resumed at d/c per cards) *Worsening necrotic appearance over the weekend, cx (although noted to be surface, +MRSA) and placed on Daptomycin -- continues on Dapto Per surgery eval 05/18, agreed w/ worsening and need for debridement which is planned for today NPO for surgery Did ask RN to hold AM dose of lasix (had been scheduled IV 20mg daily, "2x/week" on med recs, per discussion w/ daughter patient to have been ideally taking daily but unable to /not wanting to get up/use bathroom as frequently w/ her balance and falls and had been taking QOD). Cr has remained stable Type/screen for additional unit depending if needed w/ surgery and can give the dose of lasix then. Wound RN to follow/wound vac following evacuation fo hematoma and debridement of necrotic tissue Updated daughter Annamaria via voicemail this morning, Madeline via phone Monitor labs in AM (2) Acute on chronic systolic (congestive) heart failure: Plan: History of such, on furosemide 20mg 2x/week listed in chart, patient states she was taking this every other day Weight UP on admit, 77-79kg -- appears was in the upper 58-67kg last year around this time Ordered lasix 20mg IV x 1 evening 05/14, scheduled for daily given BNP 652 Repeat ECHO (Prior echo 55-60%, grade II diastolic dysfunction) * Left ventricular systolic function is normal. Mild concentric LVH. Diastolic dysfunction grade III c/w marked congestive heart failure. RV moderate to severely dilated. RV systolic function mildly reduced. LA/RA mod-severely dilated. SEVERE tricuspid regurgitation. RVSP elevated at 50-60mmHg. IVC severely dilated Continues on lasix 20mg IV DAILY for CHF Net negative -1.7 L since admission, Cr stable -- held AM dose IV lasix for surgery and can be given if needed w/ blood Cards consulted -- high risk for surgery, needs magnet over pacer for surgery -- RN to pass along to anesthesia as well Monitor weights/I&O Cannot r/o underlying PE/DVT given ability to perform US doppler w/ her hematomas. Denies SOB/no hypotension/hypoxia. Could entertain V/Q, but anticoagulation would be difficult given above (3) Anemia: Plan: acute blood loss anemia --2nd to fall/leg hematoma and Eliquis use 1u PRBC on admit Hgb stable w/ continued diuresis -- 8.2 currently Planning to STOP eliquis at discharge (4) Atrial fibrillation: Plan: afib rates 80-100s on monitor Continue metoprolol 50mg BID, diltiazem 120mg daily Eliquis on hold given bleeding/hematomas as above --per discussion w/ cards, would not resume TSH is elevated -- ?reactive from bleeding. T4/t3 wnl. Rec repeat TFT outpatient w/ PCP 4-6wks to ensure stable Keep mag ~2, K~4 -- stable on AM labs they also rec keeping her metoprolol at current dosing unless HRs elevated further (5) Systolic CHF, chronic: Plan: diuresis as above w/ good response and continuing daily w/ exception of pre-op (would give if needing to give unit of blood however) (6) Chronic kidney disease, stage IV (severe): Plan: Baseline 1.31.8 Cr 1.78 on admit Cr 1.6--> 1.53--> 1.51--> 1.63 w/ continued diuretics as above Renal dose meds as able/avoid nephrotoxic agents BMP in AM (7) Pacemaker: Plan: Noted, pacemaker interrogation w/o issue Carotid stenosis 50% right, left 50-70%. No hemodynamically significant stenosis Patient not on aspirin therapy due to hematomas and bleeding, has been on Eliquis this is been held in the setting of anemia with hemoglobin near 7 Once hematomas are stable, would only continue ASA 81mg daily Should be on a statin, discussed w/ dr blandon, doubts benefit for beginning in 86yo patient-- defer to cards in f/u With regards to falls, checked RUQ US given TB/ALP elevation --> sludge/stones but no GB wall thickening. No RUQ pain on exam, could be from vol overload status? ALP normalized on repeat w/ diuretics as above (8) Depression: Plan: Continue sertraline 25 mg p.o. nightly DVT prophylaxis Pharmacal prophylaxis deferred due to active bleeding, SCDs not able to be used due to hematomas on legs. Follow clinically for signs of DVT -- unclear if would be able to get good/any imaging w/ current hematoma to leg, sensation and pulse currently intact, but will need close monitoring (9) History of creation of ostomy: Plan: present, functioning. has parastomal hernia, wound RN following and may be able to get belt per discussion w/ daughter and her prior discussion w dr estrella Plan NPO for OR this morning for evacuation of hematoma and debridement of necrotic tissue continues on dapto PT/OT consults and patient will need rehab at d/c (agreeable to such) Updated daughters via plan by phone this morning (Annamaria helps w/ pills, but Madeline is primary contact) Palliative following -- pain control ordered w/ oxycodone prn. Patient does have POLST confirmed with daughters and is a DNR Admission and Anticipated Discharge Date Admission Date: May 14, 2022 Supervising Physician Co-Signing Physician Notes Attending Attestation - Chart reviewed, care plan d/w KEENA Valdes. I agree w/ the rodriguez components of her documentation. Adalid Balbuena MD Subjective Evaluated this morning, doing alright. She is aware she is going to surgery this morning, inquiring whether this will hurt or not. Discussed may have some pain but will medicate and hopefully by relieving the pressure with the hematoma she will feel improvement. No fever/chills, does have fatigue but no chest pain or shortness of breath. Mild headache this morning - discussed IV Tylenol, oxycodone or other IV can be ordered if not effective. Called to ray Annamaria per her request as she thought maybe someone would be here this morning with her. Also call to ray clay. Physical Exam Physical Exam: General: WD chronically ill appearing female laying flat in bed, NAD, reports feeling ok but fatigued and having some LE pain at site of hem atoma on the left LE HEENT: head normocephalic, trachea midline, +JVD upright in bed slightly improved Resp: CTA, no w/c, diminished in the bases, on room air CV: irregularly irregular (rates 80-100s), +systolic murmur, +S3 pulses diminished but palpable, + LE edema decreased slightly GI: +BS, soft/NT, colostomy w/ stool in bag MSK/Neuro/skin: moves extremities on command, no facial droop/slurred speech, hematoma to b/l LE, stable on the RLE, but significant necrotic tissue covering entire LLE hematoma, tender to palpation, pulses diminished but palpable Psych: AOx3, oriented but reported fatigue Results & Data Results & Data ([facility]) Vital Signs (Past 12 Hours) Vital Signs Temp Pulse Pulse Resp BP Pulse Ox O2 Del Method 05/19/22 07:55 37 C 91 H 20 123/68 94 Room Air 05/19/22 07:01 86 05/19/22 05:34 91 H 05/19/22 03:41 36.7 C 86 20 115/68 94 Room Air 05/18/22 23:53 36.8 C 86 20 142/72 H 92 Room Air 05/18/22 20:16 36.8 C 88 20 133/66 96 Room Air Laboratory Results 05/19/22 05/19/22 Range/Units 06:06 06:06 WBC 7.31 (4.8-10.8) K/ul RBC 2.78 L (4.20-5.40) M/uL Hgb 8.2 L (12.0-16.0) g/dl Hct 24.3 L (37.0-47.0) % MCV 87.4 (80.0-100.0) fL MCH 29.5 (25.0-34.0) pg MCHC 33.7 (32.0-36.0) g/dL RDW Std Deviation 45.9 (36.4-46.3) fL RDW Coeff of Thee 14.6 H (11.5-14.5) % Plt Count 279 (130-400) K/uL MPV 9.5 (9.4-12.4) fL Sodium 135 L (136-145) mmol/L Potassium 4.0 (3.5-5.1) mmol/L Chloride 98 (98-107) mmol/L Carbon Dioxide 29 (21-32) mmol/L Anion Gap 8 (3-11) BUN 49 H (6-23) mg/dl Creatinine 1.63 H (0.6-1.2) mg/dl Est Cr Clr Drug Dosing 23.1 ml/min Est GFR ( Amer) 32.3 ml/min Est GFR (Non-Af Amer) 27.8 ml/min BUN/Creatinine Ratio 30.1 H (10-20) Glucose 115 H (70-99(Fasting)) mg/dl Calcium 8.7 (8.5-10.1) mg/dl Magnesium 2.1 (1.7-2.4) mg/dl PG Care Time/CCT Total # of Minutes Spent Total Time Spent with Patient: Total time spent is greater than 50% in coordination of care (as documented) at patient's floor/unit and/or counseling patient: Coding Level of Care Code 75669 SUB INP/OBS CARE 3/50MIN Diagnoses Hematoma of left lower leg S80.12XA Acute on chronic systolic (congestive) heart failure I50.23 Anemia D64.9 Atrial fibrillation I48.91 Atrial fibrillation type: unspecified Systolic CHF, chronic I50.22 Chronic kidney disease, stage IV (severe) N18.4 Pacemaker Z95.0 Depression F32.A History of creation of ostomy Z93.9 (1) Atrial fibrillation Atrial fibrillation type: unspecified Qualified Code(s): I48.91 - Unspecified atrial fibrillation
[2022-05-19] MEDS ORDERED: ACETAMINOPHEN 1,000 MG/100 ML VIAL IV STA (09:04)
[2022-05-19] MEDS ORDERED: SODIUM CHLORIDE 0.9% 250 ML IV PRN (09:07)
[2022-05-19] MEDS ORDERED: MIDAZOLAM HCL 1 MG/ML 2ML VIAL ONE (11:01)
[2022-05-19] MEDS ORDERED: fentaNYL citrate 100 MCG/2 ML VIAL ONE (11:01)
[2022-05-19] MEDS ORDERED: LIDOCAINE 2% MPF LOCAL 5 ML VIAL INFIL ONE (11:02)
[2022-05-19] MEDS ORDERED: ONDANSETRON INJ 2 MG/ML 2 ML VIAL ONE (11:03)
[2022-05-19] MEDS ORDERED: PROPOFOL IV EMULSION 10 MG/ML 20 ML VIAL IV ONE ×2 (11:03→12:26)
--- NOTE | 2022-05-19 11:12 | Anesthesiology Consultation ---
Date of Service May 19, 2022 Assessment & Plan Chart Review Chart Review: Acceptable Risk for Surgery and Patient NOT seen in Pre Admission Testing Consults Requested none ASA ASA3 Proposed Anesthesia Anesthesia Type: MAC Risk / Benefits Reviewed With: PT / POA / Parent / Guardian, Accepts Plan and Informed Consent Obtained Additional Comments: Pt is DNR with with omitted code measure (monitoring) and comfort measures. DOES NOT WANT CPR , cardiac meds, intubation or defibrillation. Discussed with patient and daughters. All in agreement History Surgery Operation Date: 05/19/22 11:15 Proposed Procedures p Left Lower Extremity Debridement and Evacuation of Hematoma - Jr Cristina, DO Height/Weight Height: 5 ft 2 in Weight: 77.9 kg Allergies Allergy/AdvReac Type Severity Reaction Status Date / Time Iodinated Contrast Media Allergy Severe Difficulty Verified 05/12/22 16:49 Breathing, Severe Hives cephalexin Allergy Unknown Unknown Verified 05/12/22 16:49 diphenhydramine Allergy Unknown DOES NOT Verified 05/12/22 16:49 REMEMBER mushroom Allergy Unknown Unknown Verified 05/12/22 16:49 potassium chloride Allergy Unknown unknown Verified 05/12/22 16:49 Sulfa (Sulfonamide Allergy Unknown Unknown Verified 05/12/22 16:49 Antibiotics) Medications Home Medications Medication Instructions Recorded Confirmed Last Taken allopurinol 100 mg tablet 100 mg PO QAM 06/20/19 05/12/22 05/09/22 multivit with 1 tab PO QAM 06/20/19 05/12/22 05/09/22 gmfaqauy-qcug-RS-lutein 8 mg iron-400 mcg-300 mcg tablet (Centrum Silver Women) nitroglycerin 0.4 mg sublingual 0.4 mg sublingual DIRECTED PRN 06/20/19 05/12/22 Unknown tablet (Nitrostat) Chest Pain omeprazole 20 mg capsule,delayed 20 mg PO QAM 06/20/19 05/12/22 05/09/22 release vit C 250 mg-vit E 90 mg-zinc 40 1 tab PO BID 06/20/19 05/12/22 05/09/22 mg-copper 1 mu-gjxnpc-loksmj capsule (PreserVision AREDS-2) apixaban 2.5 mg tablet (Eliquis) 2.5 mg PO BID 10/06/19 05/12/22 05/09/22 furosemide 20 mg tablet 20 mg PO 2XWK 10/06/19 05/12/22 10/05/19 40 mg sertraline 25 mg tablet 25 mg PO HS 10/06/19 05/12/22 05/08/22 lorazepam 0.5 mg tablet 0.5 mg PO HS 3 days #3 tabs 10/10/19 05/12/22 05/08/22 diclofenac sodium 1 % topical gel 4 g EXT Q6 PRN pain #100 grams 07/31/21 05/12/22 Unknown (Voltaren Arthritis Pain) diltiazem HCl 120 mg 120 mg PO QAM #30 caps 07/31/21 05/12/22 05/09/22 capsule,extended release 24 hr melatonin 3 mg tablet 3 mg PO HS #30 tabs 07/31/21 05/12/22 05/08/22 metoprolol succinate 50 mg 50 mg PO BID 05/09/22 05/12/22 05/09/22 tablet,extended release 24 hr Active Medications Generic Name Dose Route Start Last Admin Trade Name Ricardoq PRN Reason Stop Dose Admin Acetaminophen 650 mg 05/12/22 19:27 05/18/22 09:59 Acetaminophen 325 Mg Tab PO 06/11/22 19:26 650 mg Q4H PRN Administration Pain or Fever Allopurinol 100 mg 05/13/22 09:00 05/19/22 08:05 Allopurinol 100 Mg Tab PO 06/12/22 08:59 100 mg QAM SACHA Administration Diltiazem HCl 120 mg 05/13/22 09:00 05/19/22 08:05 Diltiazem Hcl 120 Mg Capcr PO 06/12/22 08:59 120 mg QAM SACHA Administration Furosemide 20 mg 05/15/22 09:00 05/18/22 08:47 Furosemide Inj 20 Mg/2 Ml Vial IV 06/14/22 08:59 20 mg QAM SACHA Administration Daptomycin 250 mg/ Syringe 5 mls @ 2.5 mls/min 05/16/22 09:45 05/18/22 09:50 IV 05/23/22 09:44 2.5 mls/min Q48H SACHA Administration Protocol Lorazepam 0.5 mg 05/12/22 21:00 05/18/22 22:06 Lorazepam 0.5 Mg Tab PO 06/11/22 20:59 0.5 mg HS SACHA Administration Melatonin 3 mg 05/12/22 21:00 05/18/22 22:06 Melatonin 3 Mg Tab PO 06/11/22 20:59 3 mg HS SACHA Administration Metoprolol Succinate 50 mg 05/12/22 21:00 05/19/22 08:04 Metoprolol Succ 50mg Ext Rel Tab PO 06/11/22 20:59 50 mg BID SACHA Administration Pantoprazole Sodium 40 mg 05/13/22 09:00 05/19/22 08:04 Pantoprazole 40 Mg Tab PO 06/12/22 08:59 40 mg DAILY SACHA Administration Sertraline HCl 25 mg 05/12/22 21:00 05/18/22 22:06 Sertraline Hcl 50 Mg Tablet PO 06/11/22 20:59 25 mg HS SACHA Administration Vitamin D 1,000 units 05/19/22 09:00 05/19/22 08:04 Cholecalciferol 1,000 Units 25 Mcg Tab PO 06/18/22 08:59 1,000 units QAM SACHA Administration NPO Date Last Intake of Fluids: 05/19/22 Time Last Intake of Fluids: 08:04 Date Last Intake of Solids: 05/18/22 Time Last Intake of Solids: 18:00 Past Medical History Medical History Abnormal stress test Ambulatory dysfunction Atrial fibrillation Atrial fibrillation (04/24/13) Bilateral leg edema Chronic kidney disease, stage IV (severe) Closed fracture of right distal fibula Depression Disc displacement, 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) Dizziness DJD (degenerative joint disease) Fall GI bleed Gouty arthritis Hemarthrosis Hip hematoma, left Left knee DJD Osteoarthritis Pacemaker Right rib fracture Systolic CHF, chronic Weakness Exercise / Class Metabolic Activity III < 4 Walking/Shop/Light housework Past Family History Family History Other Family history non-contributory Past Surgical History Surgical History H/O: hysterectomy (03/28/12) Past Anesthesia History No Hx of Anesthesia Complications and No Family Hx of Anesthesia Complications History of PONV No Hx of PONV and No Hx of Motion Sickness Social History Smoking Status: Never smoker Hx Alcohol Use: No Hx Substance Use: No substance use type: does not use Review of Systems Constitutional: as per Subjective / HPI Ear, Nose, Mouth, Throat: as per Subjective / HPI Respiratory: as per Subjective / HPI Cardiovascular: + edema and + calf pain (related to hematoma) Gastrointestinal: as per Subjective / HPI Genitourinary (Female): as per Subjective / HPI Integumentary: + bleeding lesions, + skin ulcer and + unusual bruising Neurologic: as per Subjective / HPI Psychiatric: as per Subjective / HPI Endocrine: as per Subjective / HPI Hematologic / Lymphatic: + easy bruising Allergy / Immunological: as per Subjective / HPI Physical Exam Vital Signs Last Vital Signs Temp 36.8 C 05/19/22 10:23 Pulse 93 H 05/19/22 10:23 Resp 20 05/19/22 10:23 BP 111/66 05/19/22 10:23 Pulse Ox 94 05/19/22 10:23 O2 Del Method 05/19/22 10:23 Constitutional WD/WN, vitals as above + obese Eyes PERRL, conjunctivae normal, anicteric sclerae ENMT external ear and nose normal, oropharynx normal Mouth: + dentition abnormality (missing teeth) Thyromental Distance: > or= 3.5 Finger Breadths Mallampati Class: II Neck trachea midline, no thyromegaly normal visual inspection Respiratory normal respiratory effort, lungs clear to auscultation normal respiratory effort Auscultation: lungs clear to auscultation bilaterally Cardiovascular RRR, no murmur, no edema Rate/Rhythm: regular rate Heart Sounds: + murmur Chest (Breasts) Chest: + pacemaker Musculoskeletal Head/Neck/Chest: normocephalic and head atraumatic Spine: normal cervical ROM and no pain with cervical ROM Extremities: extremities normal to inspection (large amount of bruising b/l LE with dressed hematoma/lesion left out calf) and strength 5/5 throughout; full ROM of extremities Skin no rashes, warm and dry Psychiatric A+Ox3, euthymic affect Testing Laboratory Results 05/19/22 06:06 05/19/22 06:06 PT 12.8 Seconds (9.0-12.0) H 05/12/22 17:00 INR 1.2 (0.9-1.1) H 05/12/22 17:00 APTT 31.1 Seconds (21.0-31.0) H 05/12/22 17:00 Urine Color Yellow 05/16/22 10:45 Urine Appearance Clear (Clear) 05/16/22 10:45 Urine pH 6.5 (4.5-7.5) 05/16/22 10:45 Ur Specific Waterman 1.011 (1.000-1.030) 05/16/22 10:45 Urine Protein Trace (Negative) H 05/16/22 10:45 Urine Glucose (UA) Negative (Negative) 05/16/22 10:45 Urine Ketones Negative (Negative) 05/16/22 10:45 Urine Nitrite Negative (Negative) 05/16/22 10:45 Ur Leukocyte Esterase Negative (Negative) 05/16/22 10:45 Urine WBC (Auto) 1-5 /hpf (0-5) 05/16/22 10:45 Urine RBC (Auto) 0-4 /hpf (0-4) 05/16/22 10:45 U Hyaline Cast (Auto) 1-5 /lpf (0-5) 05/16/22 10:45 U Epithel Cells (Auto) 5-10 /lpf (0-5) H 05/16/22 10:45 Urine Bacteria (Auto) Negative (Negative) 05/16/22 10:45 Blood Type A Positive 05/13/22 15:34 Antibody Screen NEGATIVE 05/13/22 15:34 05/14/22 13:40 Gram Stain - Final Leg,Left Wound Culture - Final Staph aureus MRSA
[2022-05-19] MEDS ORDERED: ePHEDrine sulfate 50 MG/ML AMP IV PRN (11:14)
[2022-05-19] MEDS ORDERED: ATROPINE SULFATE 0.1 MG/ML 10ML SYR IV PRN (11:14)
[2022-05-19] MEDS ORDERED: fentaNYL citrate 100 MCG/2 ML VIAL IV PRN (11:14)
--- NOTE | 2022-05-19 11:48 | History & Physical Bridge Note ---
Date of Service May 19, 2022 History & Physical Bridge Note I have examined the patient, reviewed the History & Physical and in the interval since the performance of the History & Physical I have noted the following changes of clinical significance: I long discussion with patient and her daughters regarding options and risks. Discussed bleeding infection blood clots etc. Answered all their questions. We will proceed today with debridement of right lower extremity wound as well as evacuation of hematoma.
[2022-05-19] MEDS ORDERED: PHENYLEPHRINE HCL 10 MG/ML VIAL ONE (12:26)
--- NOTE | 2022-05-19 12:30 | Anesthesiology Progress Note ---
Date of Service May 19, 2022 Anesthesia Post Procedure Vital Signs Vital Signs: Temp Pulse Pulse Resp BP BP Pulse Ox 05/19/22 10:23 36.8 C 93 H 20 111/66 94 05/19/22 08:00 05/19/22 07:55 37 C 91 H 20 123/68 94 05/19/22 07:01 86 05/19/22 05:34 91 H 05/19/22 03:41 36.7 C 86 20 115/68 94 05/18/22 23:53 36.8 C 86 20 142/72 H 92 05/18/22 20:16 36.8 C 88 20 133/66 96 05/18/22 16:28 95 H 05/18/22 14:54 36.8 C 85 18 107/66 96 O2 Del Method 05/19/22 10:23 Room Air 05/19/22 08:00 Room Air 05/19/22 07:55 Room Air 05/19/22 07:01 05/19/22 05:34 05/19/22 03:41 Room Air 05/18/22 23:53 Room Air 05/18/22 20:16 Room Air 05/18/22 16:28 05/18/22 14:54 Room Air Pain Intensity Bilateral Leg: Pain Intensity: 5 Transfer of Care Handoff Completed per policy Notes Mental Status: alert / awake / arousable and participated in evaluation Patient Amnestic to Procedure: Yes Nausea / Vomiting: adequately controlled Pain: adequately controlled Airway Patency, RR, SpO2: stable & adequate BP & HR: stable & adequate Hydration State: stable & adequate Anesthetic Complications: no major complications apparent and Pt Satisfied with anesthetic care
--- NOTE | 2022-05-19 12:53 | Operative Report ---
PG Post Operative Report Pre & Post Diagnosis Operation Date: 05/19/22 11:15 Pre-Op Diagnosis: Left Lower Extremity Hematoma Post-Op Diagnosis: Left Lower Extremity Hematoma I identified the patient and participated in the time-out.: Yes Procedure Operation Date: 05/19/22 11:15 Actual Procedures p Sharp Debridement of Left Lower Extremity Wound ( full thickness, greater than 200 sq cm), Evacuation of Hematoma(Left) - Jr Cristina DO Surgeon Jr Cristina DO Sewer Pipe Offbearer n/a Estimated Blood Loss 50 Findings Consistent with Post-Op Diagnosis Specimens none Description of Procedure After informed consent was obtained the patient was taken to the operating room and placed in supine position. IV sedation was administered by anesthesia and titrated to effect. After adequate sedation the left lower extremity was sterilely prepped and draped in usual fashion. I began with a 10 blade scalpel and removed all of the necrotic skin overlying the hematoma. The entire area was over 200 cm close to 210 cm. This was removed full-thickness down to muscle. Once I had the necrotic skin removed I then evacuated the hematoma with suction as well as sharp knife debridement. Once we were down to a nice pink tissue we then thoroughly irrigated the wound. There was no foul smell no evidence of any purulent drainage and the patient was on antibiotics already and therefore I decided to forego culture as this would unlikely be helpful. After final irrigation we placed a Adaptic ,gauze ABD pads, Curlex and an Paulino bandage as a dressing. The patient tolerated the procedure well. She was awakened and transferred recovery in stable condition. I attest to the content of the Intraoperative Record and any orders documented therein. Any exceptions are noted below.
[2022-05-19] MEDS: ACETAMINOPHEN 325 MG TAB PO PRN (18:29)
[2022-05-19] MEDS: SERTRALINE HCL 50 MG TABLET PO SCH (23:01)
[2022-05-19] MEDS: MELATONIN 3 MG TAB PO SCH (23:01)
[2022-05-19] MEDS: LORazepam 0.5 MG TAB PO SCH (23:01)
--- NOTE | 2022-05-20 07:51 | Surgery Progress Note ---
Date of Service May 20, 2022 Assessment & Plan (1) Hematoma of lower leg: Plan: POD#1 I&D of LLE hematoma vitals stable. labs are pending wound care to take over dressing changes and evaluate for vac today. Also to see if pt may benefit from stoma belt we will follow peripherally. call with any questions/concerns. should f/u in the wound care center upon discharge Admission and Anticipated Discharge Date Admission Date: May 14, 2022 Subjective Patient is resting. When asked about her leg she says "it feels like I had something done". Otherwise no further complaints. Physical Exam Physical Exam: resting, but easily awakened and communicative Skin: LLE wound wrapped in surgical dressings and ZHAO bandage Results & Data ([facility]) Vital Signs (Past 12 Hours) Vital Signs Temp Pulse Pulse Resp BP Pulse Ox O2 Del Method 05/20/22 05:59 36.9 C 79 18 123/62 94 Room Air 05/19/22 22:00 83 05/19/22 20:01 36.9 C 102 H 20 112/63 93 Room Air PG Care Time/CCT Total # of Minutes Spent Total Time Spent with Patient: Total time spent is greater than 50% in coordination of care (as documented) at patient's floor/unit and/or counseling patient: Coding Level of Care Code None Diagnoses Hematoma of lower leg S80.10XA
[2022-05-20 08:49] LABS: Hematocrit (blood only) 26.7 % (37.0-47.0); Hemoglobin 8.7 g/dl (12.0-16.0); Mean Corpuscular Hemoglobin 29.1 pg (25.0-34.0); Mean Corpuscular Hgb Conc 32.6 g/dL (32.0-36.0); Mean Corpuscular Volume 89.3 fL (80.0-100.0); Mean Platelet Volume 9.5 fL (9.4-12.4); Platelet Count 314 K/uL (130-400); RDW Standard Deviation 47.6 fL (36.4-46.3); Red Blood Count 2.99 M/uL (4.20-5.40); White Blood Count 6.99 K/ul (4.8-10.8)
[2022-05-20] MEDS: DAPTOmycin 250 MG in SYRINGE 0 ML IV SCH (08:51)
[2022-05-20] MEDS: PANTOprazole 40 MG TAB PO SCH (08:51)
[2022-05-20] MEDS: CHOLECALCIFEROL 1,000 UNITS 25 MCG TAB PO SCH (08:51)
[2022-05-20] MEDS: dilTIAZem HCL 120 MG CAPCR PO SCH (08:51)
[2022-05-20] MEDS: METOPROLOL SUCC 50MG EXT REL TAB PO SCH ×2 (08:51→21:01)
[2022-05-20] MEDS: allopurinoL 100 MG TAB PO SCH (08:51)
[2022-05-20] MEDS: oxyCODONE HCL IR 5 MG TAB (IMMEDIATE RELEASE) PO PRN (09:02)
[2022-05-20 09:33] LABS: BUN Creatinine Ratio 26.3 (10-20); Calcium 9.1 mg/dl (8.5-10.1); Creatinine Clr Calc Pharmacy 19.4 ml/min; Est GFR (African American) 26.1 ml/min; Est GFR (Non-African American) 22.6 ml/min; Magnesium 2.2 mg/dl (1.7-2.4); Potassium 4.6 mmol/L (3.5-5.1)
--- NOTE | 2022-05-20 20:52 | Hospitalist Progress Note ---
Date of Service May 20, 2022 Assessment & Plan (1) Hematoma of left lower leg: Plan: POD #1 s/p evacuation of hematoma and debridement by Dr Cristina. now with woundvac. previous culture with MRSA. remains on daptomycin. day #5 of such. plan 10 days? then change to PO doxy or zyvox? (2) Left leg cellulitis: Plan: 2nd to MRSA. Cont daptomycin IV. See above. (3) Acute on chronic right-sided congestive heart failure: Plan: creatinine increased overnight - thus, place IV lasix on hold. repeat BMP am. recent echo with cor pulmonale and grade 3 diastolic dysfunction. avoid over-diuresis. cont BB. (4) Acute blood loss anemia: Plan: 2nd to Left LE hematoma. s/p 1 unit of PRBCs. Eliquis stopped; will not resume. H/H stable at this time. Repeat CBC am. Ferritin 71, transferrin sat 76%. Defer on IV iron replacement. B12/folate wnl. (5) Atrial fibrillation: Plan: Pacing on monitor today. Continue metoprolol 50mg BID, diltiazem 120mg daily. Eliquis stopped. Previous provider spoke with primary managing jeweler - will NOT resume anticoagulation moving forward. (6) Chronic kidney disease, stage IV (severe): Plan: Baseline CrCl 20s BMP in am Cr summer modestly overnight with diuresis - lasix held today (7) Pacemaker: Plan: pacemaker interrogation w/o issue (8) Depression: Plan: Continue sertraline 25 mg p.o. 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 Wound care, by report, to arrange this. (10) Left leg weakness: Plan: 2nd to spinal stenosis of back? need for MRI of l-spine and/or brain? (11) Osteoarthritis of knees, bilateral: Plan: appears advanced on exam certainly will heighten fall risk (12) Acute metabolic encephalopathy: Plan: 2nd to MRSA infection of LLE; can't rule out toxic effects from pain meds, recent sedation/anesthesia for hematoma evacuation, etc. Supportive care. Cont melatonin 3mg HS. Plan Palliative care following -- pain control w/ oxycodone prn. DNR/DNI. POLST on file. Dispo post-d/c -- SNF. Admission and Anticipated Discharge Date Admission Date: May 14, 2022 Subjective patient sleeping when I came to see her easily awoke c/o mild LLE pain only denies dyspnea just feels "tired" a little confused throughout the visit nursing flowsheets show eating ~50% of meals tele - NSR overnight Review of Systems Review of Systems: gen - no fevers cv - no cp; continued LE edema musculo/neuro - states left leg feels "weak"; thinks she fell at home due to this pulm - no dyspnea at rest GI - no abd pain Physical Exam Physical Exam: gen - NAD, sleepy, confused skin - stasis changes b/l legs; skin very thin; wound vac in place left lateral mid-[place]; no surrounding cellulitis neck - JVD sitting upright in bed - nearly to the jaw heart - RRR, s1 s2, 2/6 systolic murmur LSB lungs - CTA b/l abd - soft NT ND BS+; 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; brown stool in bag ext - 2+ edema b/l legs, pulses 2+ b/l musculo - severe OA changes b/l knees; "knock" knees (valgus positioning) neuro - left leg hip and distal strength 4/5; right leg hip/distal strength 5/5 psych - mild confusion Results & Data Results & Data ([facility]) Vital Signs (Past 12 Hours) Vital Signs Temp Pulse Resp BP BP Pulse Ox O2 Del Method 05/20/22 20:15 37.1 C 87 20 115/70 95 Room Air 05/20/22 15:08 37 C 79 16 115/71 95 Room Air 05/20/22 11:26 36.8 C 99 H 16 117/70 97 Room Air Laboratory Results Laboratory Results - last 24 hr 05/20/22 05/20/22 08:07 08:07 WBC 6.99 RBC 2.99 L Hgb 8.7 L Hct 26.7 L MCV 89.3 MCH 29.1 MCHC 32.6 RDW Std Deviation 47.6 H RDW Coeff of Thee 15.0 H Plt Count 314 MPV 9.5 Sodium 136 Potassium 4.6 Chloride 98 Carbon Dioxide 31 Anion Gap 7 BUN 51 H Creatinine 1.94 H D Est Cr Clr Drug Dosing 19.4 Est GFR ( Amer) 26.1 Est GFR (Non-Af Amer) 22.6 BUN/Creatinine Ratio 26.3 H Glucose 117 H Calcium 9.1 Magnesium 2.2 PG Care Time/CCT Total # of Minutes Spent Total Time Spent with Patient: Total time spent is greater than 50% in coordination of care (as documented) at patient's floor/unit and/or counseling patient: Coding Level of Care Code 57433 SUB INP/OBS CARE 2/35MIN Diagnoses Hematoma of left lower leg S80.12XA Left leg cellulitis L03.116 Acute on chronic right-sided congestive heart failure I50.813 Acute blood loss anemia D62 Atrial fibrillation I48.91 Atrial fibrillation type: unspecified Chronic kidney disease, stage IV (severe) N18.4 Pacemaker Z95.0 Depression F32.A History of creation of ostomy Z93.9 Left leg weakness R29.898 Osteoarthritis of knees, bilateral M17.0 Acute metabolic encephalopathy G93.41 (1) Atrial fibrillation Atrial fibrillation type: unspecified Qualified Code(s): I48.91 - Unspecified atrial fibrillation
[2022-05-20] MEDS: LORazepam 0.5 MG TAB PO SCH (21:00)
[2022-05-20] MEDS: SERTRALINE HCL 50 MG TABLET PO SCH (21:01)
[2022-05-20] MEDS: MELATONIN 3 MG TAB PO SCH (21:01)
[2022-05-21] MEDS: METOPROLOL SUCC 50MG EXT REL TAB PO SCH ×2 (07:42→20:21)
[2022-05-21] MEDS: allopurinoL 100 MG TAB PO SCH (07:46)
[2022-05-21] MEDS: dilTIAZem HCL 120 MG CAPCR PO SCH (07:46)
[2022-05-21] MEDS: CHOLECALCIFEROL 1,000 UNITS 25 MCG TAB PO SCH (07:46)
[2022-05-21] MEDS: PANTOprazole 40 MG TAB PO SCH (07:47)
[2022-05-21 09:01] LABS: Calcium 8.7 mg/dl (8.5-10.1); Potassium 4.5 mmol/L (3.5-5.1)
[2022-05-21 09:06] LABS: BUN Creatinine Ratio 28.7 (10-20); Creatinine Clr Calc Pharmacy 20.8 ml/min
--- NOTE | 2022-05-21 11:22 | Palliative Care Progress Note ---
Date of Service May 21, 2022 Assessment & Plan (1) Anxiety: Plan: She has chronic anxiety but seems better after surgery which was very distressing for her. Continue ativan and sertraline (2) Pain: Plan: Has prn oxycodone if tylenol ineffective. Denies pain at this time. Tolerating care per RN. (3) Palliative care encounter: Plan: Reviewed goals of care with Mrs. Truong and her family prior to surgery. She has a POLST form completed in 2020 and they feel that this accurately reflects her wishes at this time. Admission and Anticipated Discharge Date Admission Date: May 14, 2022 Subjective Complains of feeling "dopey" but is easily arousable. She denies pain. Seems less anxious today. Ate breakfast per RN. Review of Systems 2 Review of Systems: ESAS Pain 0/3 Nausea 0/3 Anxiety 1/3 Drowsiness 1/3 Physical Exam Constitutional: no acute distress Respiratory: normal respiratory effort; no labored breathing Cardiovascular: Rate/Rhythm: + irregularly irregular Gastrointestinal (Abdomen): colostomy with formed stool Neurologic: Speech / Cognition: normal cognition Genitourinary: incontinent Results & Data ([facility]) Vital Signs (Past 12 Hours) Vital Signs Temp Pulse Resp BP BP Pulse Ox O2 Del Method 05/21/22 07:48 98.1 F 89 18 121/67 93 Room Air 05/21/22 05:08 98.8 F 82 20 111/65 94 Room Air 05/20/22 23:58 98.6 F 71 18 115/66 95 Room Air PG Care Time/CCT Total # of Minutes Spent Total Time Spent with Patient: Total time spent is greater than 50% in coordination of care (as documented) at patient's floor/unit and/or counseling patient: Coding Level of Care Code 63554 SUB INP/OBS CARE 05/13MIN Diagnoses Anxiety F41.9 Pain R52 Palliative care encounter Z51.5
--- NOTE | 2022-05-21 11:44 | CT Scan Report ---
CT SCAN OF THE BRAIN WITHOUT IV CONTRAST CLINICAL HISTORY: Left lower extremity weakness. COMPARISON STUDY: CT of the brain dated 05/09/2022. TECHNIQUE: Unenhanced axial CT scan of the brain is performed from the vertex to the skull base. A do se lowering technique was utilized adhering to the principles of ALARA. FINDINGS: Brain parenchyma: There is age-related involutional change noting moderate to advanced subcortical an d periventricular microangiopathic disease. There is no hemorrhage, mass effect, or evidence of acute territorial ischemia by CT criteria. Caban-white matter differentiation is preserved. No extra-axial fluid collection is seen. Ventricles, sulci, cisterns: Prominent secondary to involutional change. Intracranial vasculature: There is atherosclerotic calcification of the cavernous carotid and vertebr al arteries. Calvarium: Unremarkable. Sinuses and mastoids: The paranasal sinuses are clear. The mastoid air cells are well pneumatized. Orbits: The bony orbits are grossly intact. There are bilateral ocular lens implants. IMPRESSION: There is no hemorrhage, mass effect, or evidence of acute territorial ischemia by CT petr cuadra. ACT 112: Negative or not required by law. Electronically signed by: Jose Rodrigues M.D. 05/21/2022 11:42 AM
--- NOTE | 2022-05-21 12:28 | CT Scan Report ---
LUMBAR SPINE CT CT DOSE: 1267.07 mGy.cm HISTORY: Left lower extremity weakness; spinal stenosis high-grade? TECHNIQUE: Multiaxial CT images of the lumbar spine were performed and reformatted in the sagittal an d coronal plane without the use of contrast. A dose lowering technique was utilized adhering to the principles of ALARA. COMPARISON: CT lumbar spine 03/30/2022. FINDINGS: No acute fractures within the lumbar spine. Grade 1 anterolisthesis of L5 on S1, unchanged. Moderate facet degenerative changes throughout the lumbar spine. There is severe disc space narrowin g at L2-L3 and L3-L4. There is moderate disc space narrowing at L4-5. The visualized sacrum appears i ntact. There is a subacute/healing moderate inferior endplate compression fracture at T12 which has p rogressed in the interval. This demonstrates up to 40% loss of height and 4 mm of retropulsion of the posterior inferior corner of the vertebral body. This results in mild central canal narrowing at thi s level. The posterior elements appear intact. Pacemaker wires are noted. Mild paravertebral edema at the T12 level. There is mild central canal narrowing at the L2-L3, L3-L4, L4-5 levels due to the deg enerative changes. This is similar to the prior study. No high-grade central canal stenosis within th e lumbar spine. There is severe right and moderate left neural foraminal narrowing at L3-L4 and L4-5, unchanged. IMPRESSION: 1. Interval progression of the subacute/healing moderate inferior endplate compression fracture at T1 2 with 4 mm of retropulsion. This results in mild central canal narrowing at this level. 2. No acute fractures identified within the lumbar spine. 3. Stable degenerative changes as described above. ACT 112: Negative or not required by law. Electronically signed by: Klaus Moreno M.D. 05/21/2022 12:26 PM
--- NOTE | 2022-05-21 13:37 | XRay Report ---
XR hip LT 2V w pelvis CLINICAL HISTORY: recent fall, LLE weakness COMPARISON: CT of the abdomen and pelvis March 30, 2022 and pelvis and left femur radiographs [email or web address] [email or web address]. FINDINGS: Sacroiliac joints and symphysis pubis are intact. There is no acute fracture within the pe lvis or hips. Extensive vascular calcification is incidentally noted. There is a left lower quadrant ostomy. IMPRESSION: No acute fracture within the pelvis or hips. ACT 112: Negative or not required by law. Electronically signed by: Mike [email or web address] M.D. 05/21/2022 1:36 PM
[2022-05-21] MEDS: oxyCODONE HCL IR 5 MG TAB (IMMEDIATE RELEASE) PO PRN (16:17)
[2022-05-21] MEDS: MELATONIN 3 MG TAB PO SCH (20:21)
[2022-05-21] MEDS: LORazepam 0.5 MG TAB PO SCH (20:22)
[2022-05-21] MEDS: SERTRALINE HCL 50 MG TABLET PO SCH (20:22)
--- NOTE | 2022-05-21 21:58 | Hospitalist Progress Note ---
Date of Service May 21, 2022 Assessment & Plan (1) Hematoma of left lower leg: Plan: POD #2 s/p evacuation of hematoma and debridement by Dr Cristina. woundvac remains in place. previous culture with MRSA. remains on daptomycin. day #6 of such. plan 10 days of daptomycin? then change to PO doxy or zyvox? consider ID consultation. (2) Left leg cellulitis: Plan: 2nd to MRSA. Cont daptomycin IV. See above. Cellulitic portion of LLE appears resolved. (3) Acute on chronic right-sided congestive heart failure: Plan: IV lasix placed on hold 2 days ago due to rise in creatinine. creatinine coming down now. but, continue to hold lasix. recent echo with cor pulmonale and grade 3 diastolic dysfunction. cont BB. (4) Acute blood loss anemia: Plan: 2nd to Left LE hematoma. s/p 1 unit of PRBCs. Eliquis stopped; will not resume. This was previously discussed between prior provider and her primary grinder and honer operator automatic. Repeat CBC am. Ferritin 71, transferrin sat 76%. Defer on IV iron replacement. B12/folate wnl. (5) Atrial fibrillation: Plan: Mostly Pacing on monitor with some a.fib.. Continue metoprolol 50mg BID, diltiazem 120mg daily. Eliquis stopped. Previous provider spoke with primary grinder and honer operator automatic - will NOT resume anticoagulation moving forward. (6) Chronic kidney disease, stage IV (severe): Plan: Baseline CrCl 20s Cr 1.7 today BMP in am Cr had recently summer modestly with diuresis - lasix again held today (7) Pacemaker: Plan: pacemaker interrogation w/o issue (8) Depression: Plan: Continue sertraline 25 mg p.o. 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 Wound care, by report, to arrange this. (10) Left leg weakness: Plan: x-rays of L hip without significant OA CT head negative for acute or chronic CVA lumbar spine CT (cannot obtain MRI as pacemaker device is not MRI compatible) with severe DJD at multiple levels previous knee x-rays with advanced OA suspect LLE weakness is due to combination of severe DJD of l-spine along with severe OA of left knee creating instability when attempted to ambulate/stand/etc no good fix for either issue - not an operative candidate for either problem PT, OT are best bets moving forward (11) Osteoarthritis of knees, bilateral: Plan: appears advanced on exam and by way of x-rays certainly will heighten fall risk (12) Acute metabolic encephalopathy: Plan: 2nd to MRSA infection of LLE; can't rule out toxic effects from pain meds, re cent sedation/anesthesia for hematoma evacuation, etc. Supportive care. Cont melatonin 3mg HS. Mentation seems better last couple of days. Plan Palliative care following -- pain control w/ oxycodone prn. DNR/DNI. POLST on file. Dispo post-d/c -- SNF. need to update family. Admission and Anticipated Discharge Date Admission Date: May 14, 2022 Subjective tele overnight - pacing, with some a.fib I found the patient similar to yesterday - resting in bed, lights off, cuddled under numerous blankets she endorses feeling tired, c/o pain from the left knee down to the left foot (this is where woundvac is), pain with movement, and fair appetite she is not hurting in other locations denies dyspnea no other new issues or complaints Review of Systems Review of Systems: gen - fatigue, poor-fair appetite cv - no chest pain pulm - no dyspnea at rest GI - no abd pain Physical Exam Physical Exam: gen - NAD, frail appearing skin - stasis changes b/l legs; skin very thin; wound vac in place left lateral mid-[place]; no surrounding cellulitis neck - JVD at 45 degrees to the jaw heart - RRR, s1 s2, 2/6 systolic murmur LSB lungs - CTA b/l abd - soft NT ND BS+; 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; brown stool in bag ext - 2+ edema b/l legs, pulses 2+ b/l musculo - severe OA changes b/l knees; valgus positioning of knees Results & Data Results & Data ([facility]) Vital Signs (Past 12 Hours) Vital Signs Temp Pulse Pulse Resp BP BP Pulse Ox 05/21/22 19:14 36.8 C 83 18 108/62 95 05/21/22 15:12 36.9 C 83 16 117/64 96 05/21/22 11:43 O2 Del Method 05/21/22 19:14 Room Air 05/21/22 15:12 Room Air 05/21/22 11:43 Room Air Laboratory Results Laboratory Results - last 24 hr 05/21/22 07:19 Sodium 135 L Potassium 4.5 Chloride 99 Carbon Dioxide 31 Anion Gap 5 BUN 51 H Creatinine 1.78 H Est Cr Clr Drug Dosing 20.8 Est GFR ( Amer) 29.0 Est GFR (Non-Af Amer) 25.0 BUN/Creatinine Ratio 28.7 H Glucose 105 H Calcium 8.7 PG Care Time/CCT Total # of Minutes Spent Total Time Spent with Patient: Total time spent is greater than 50% in coordination of care (as documented) at patient's floor/unit and/or counseling patient: Coding Level of Care Code 82206 SUB INP/OBS CARE 2/35MIN Diagnoses Hematoma of left lower leg S80.12XA Left leg cellulitis L03.116 Acute on chronic right-sided congestive heart failure I50.813 Acute blood loss anemia D62 Atrial fibrillation I48.91 Atrial fibrillation type: unspecified Chronic kidney disease, stage IV (severe) N18.4 Pacemaker Z95.0 Depression F32.A History of creation of ostomy Z93.9 Left leg weakness R29.898 Osteoarthritis of knees, bilateral M17.0 Acute metabolic encephalopathy G93.41 (1) Atrial fibrillation Atrial fibrillation type: unspecified Qualified Code(s): I48.91 - Unspecified atrial fibrillation
[2022-05-21] MEDS: ERYTHROMYCIN OP OINT 5 MG/GM 3.5 GM TUBE OPL SCH (23:18)
[2022-05-22 06:20] LABS: Hematocrit (blood only) 23.7 % (37.0-47.0); Hemoglobin 7.9 g/dl (12.0-16.0); Mean Corpuscular Hemoglobin 29.6 pg (25.0-34.0); Mean Corpuscular Hgb Conc 33.3 g/dL (32.0-36.0); Mean Corpuscular Volume 88.8 fL (80.0-100.0); Mean Platelet Volume 9.4 fL (9.4-12.4); Platelet Count 297 K/uL (130-400); RDW Coefficient of Variation 14.8 % (11.5-14.5); RDW Standard Deviation 47.4 fL (36.4-46.3); Red Blood Count 2.67 M/uL (4.20-5.40)
[2022-05-22 06:34] LABS: BUN Creatinine Ratio 32.5 (10-20); Calcium 8.7 mg/dl (8.5-10.1); Creatinine Clr Calc Pharmacy 21.6 ml/min; Est GFR (African American) 30.9 ml/min; Est GFR (Non-African American) 26.7 ml/min; Potassium 4.5 mmol/L (3.5-5.1)
[2022-05-22] MEDS: METOPROLOL SUCC 50MG EXT REL TAB PO SCH ×2 (07:44→20:23)
[2022-05-22] MEDS: CHOLECALCIFEROL 1,000 UNITS 25 MCG TAB PO SCH (07:44)
[2022-05-22] MEDS: allopurinoL 100 MG TAB PO SCH (07:44)
[2022-05-22] MEDS: dilTIAZem HCL 120 MG CAPCR PO SCH (07:44)
[2022-05-22] MEDS: PANTOprazole 40 MG TAB PO SCH (07:45)
[2022-05-22] MEDS: DAPTOmycin 250 MG in SYRINGE 0 ML IV SCH (07:54)
[2022-05-22] MEDS: oxyCODONE HCL IR 5 MG TAB (IMMEDIATE RELEASE) PO PRN (09:55)
--- NOTE | 2022-05-22 14:47 | Hospitalist Progress Note ---
Date of Service May 22, 2022 Assessment & Plan (1) Hematoma of left lower leg: Plan: POD #3 s/p evacuation of hematoma and debridement by Dr Cristina. woundvac remains in place. exchanged today by wound care nurse. photos of woundbed reviewed - beefy red with granulation at borders; no cellulitis. previous culture with MRSA. remains on daptomycin. day #7 of such. plan 10 days of daptomycin? then change to PO doxy or zyvox? consider ID consultation for final recs. (2) Left leg cellulitis: Plan: 2nd to MRSA. Cont daptomycin IV. See above. Cellulitic portion of LLE appears resolved based on today's photos downloaded into her chart. (3) Acute on chronic right-sided congestive heart failure: Plan: IV lasix placed on hold several days ago due to rise in creatinine. creatinine now 1.69 - near baseline. continue to hold lasix. possibly resume this tomorrow. recent echo with cor pulmonale and grade 3 diastolic dysfunction. cont BB. (4) Acute blood loss anemia: Plan: 2nd to Left LE hematoma. s/p 1 unit of PRBCs. Eliquis stopped; will not resume. This was previously discussed between prior hospitalist provider and her primary digital business analyst. Hb 7.9 today - a modest drop from prior; but will simply follow for now with repeat CBC in am. Ferritin 71, transferrin sat 76%. Defer on IV iron replacement. B12/folate wnl. (5) Atrial fibrillation: Plan: Mostly Pacing on monitor with occasional a.fib. Continue metoprolol 50mg BID. Continue diltiazem 120mg daily. Eliquis has been stopped. Previous provider spoke with primary digital business analyst - will NOT resume anticoagulation moving forward. (6) Chronic kidney disease, stage IV (severe): Plan: Baseline CrCl 20s Cr 1.69 today BMP in am Cr had recently summer modestly with diuresis - lasix remains on hold (7) Pacemaker: Plan: pacemaker interrogation w/o issue (was done in April here). pacing with underlying a.fib; no ventricular dysrhythmias noted. (8) Depression: Plan: Continue sertraline 25 mg p.o. 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 Wound care, by report, to arrange this. (10) Left leg weakness: Plan: x-rays of L hip without significant OA CT head negative for acute or chronic CVA lumbar spine CT (cannot obtain MRI as pacemaker device is not MRI compatible) with severe DJD at multiple levels previous knee x-rays with advanced OA suspect LLE weakness is due to combination of severe DJD of l-spine along with severe OA of left knee creating instability when attempted to ambulate/stand/etc she also looks like she may have a left foot drop continue PT/OT consider AFO device for left foot but defer for now (11) Osteoarthritis of knees, bilateral: Plan: appears advanced on exam and by way of x-rays certainly will heighten fall risk (12) Acute metabolic encephalopathy: Plan: 2nd to MRSA infection of LLE; can't rule out toxic effects from pain meds, recent sedation/anesthesia for hematoma evacuation, etc. Supportive care. Cont melatonin 3mg HS. Mentation improved. for pain control will - *schedule tylenol 650mg TID *change oxycodone to norco 5's prn Plan DNR/DNI. POLST on file. Dispo post-d/c -- SNF. daughter updated at bedside today. can d/c tele --> move to med/surg Admission and Anticipated Discharge Date Admission Date: May 14, 2022 Subjective tele overnight - pacing patient resting in bed comfortably daughter at bedside no new issues woundvac was exchanged today by the wound care team she does c/o left holland pain over the large wound eating fair Review of Systems Review of Systems: gen - fatigue, no fevers cv - no chest pain pulm - denies dyspnea GI - no abd pain, nausea or emesis Physical Exam Physical Exam: gen - NAD, frail appearing, resting comfortably in bed skin - stasis changes b/l legs; skin very thin; wound vac in place left lateral mid-[place]; no surrounding cellulitis; there is a tiny abrasion/open area on middle of right sin neck - JVD at 45 degrees to the jaw heart - RRR, s1 s2, 2/6 systolic murmur LSB lungs - CTA b/l; no rales abd - soft NT ND BS+; 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; brown stool in bag ext - 2+ edema b/l legs, pulses 2+ b/l musculo - severe OA changes b/l knees; valgus positioning of knees neuro - L foot drop? Results & Data Results & Data ([facility]) Vital Signs (Past 12 Hours) Vital Signs Temp Pulse Pulse Pulse Resp BP BP 05/22/22 13:53 79 05/22/22 12:03 36.4 C L 86 19 109/69 05/22/22 07:47 05/22/22 07:46 36.9 C 96 H 18 137/72 05/22/22 03:04 36.6 C 80 18 125/65 Pulse Ox O2 Del Method 05/22/22 13:53 05/22/22 12:03 95 Room Air 05/22/22 07:47 93 Room Air 05/22/22 07:46 92 Room Air 05/22/22 03:04 95 Room Air Laboratory Results Laboratory Results - last 48 hr 05/22/22 05/22/22 05:33 05:33 WBC 5.90 RBC 2.67 L Hgb 7.9 L Hct 23.7 L MCV 88.8 MCH 29.6 MCHC 33.3 RDW Std Deviation 47.4 H RDW Coeff of Thee 14.8 H Plt Count 297 MPV 9.4 Sodium 134 L Potassium 4.5 Chloride 99 Carbon Dioxide 30 Anion Gap 5 BUN 55 H Creatinine 1.69 H Est Cr Clr Drug Dosing 21.6 Est GFR ( Amer) 30.9 Est GFR (Non-Af Amer) 26.7 BUN/Creatinine Ratio 32.5 H Glucose 104 H Calcium 8.7 Total Creatine Kinase Crossmatch PG Care Time/CCT Total # of Minutes Spent Total Time Spent with Patient: Total time spent is greater than 50% in coordination of care (as documented) at patient's floor/unit and/or counseling patient: Coding Level of Care Code 46538 SUB INP/OBS CARE 2/35MIN Diagnoses Hematoma of left lower leg S80.12XA Left leg cellulitis L03.116 Acute on chronic right-sided congestive heart failure I50.813 Acute blood loss anemia D62 Atrial fibrillation I48.91 Atrial fibrillation type: unspecified Chronic kidney disease, stage IV (severe) N18.4 Pacemaker Z95.0 Depression F32.A History of creation of ostomy Z93.9 Left leg weakness R29.898 Osteoarthritis of knees, bilateral M17.0 Acute metabolic encephalopathy G93.41 (1) Atrial fibrillation Atrial fibrillation type: unspecified Qualified Code(s): I48.91 - Unspecified atrial fibrillation
[2022-05-22] MEDS ORDERED: HYDROCODONE/ACETAMOPHEN 5/325MG TAB PO PRN (15:09)
[2022-05-22] MEDS: ACETAMINOPHEN 325 MG TAB PO SCH ×2 (16:26→20:20)
[2022-05-22] MEDS: LORazepam 0.5 MG TAB PO SCH (20:22)
[2022-05-22] MEDS: MELATONIN 3 MG TAB PO SCH (20:22)
[2022-05-22] MEDS: ERYTHROMYCIN OP OINT 5 MG/GM 3.5 GM TUBE OPL SCH (20:22)
[2022-05-22] MEDS: SERTRALINE HCL 50 MG TABLET PO SCH (20:23)
[2022-05-23 07:03] LABS: Hematocrit (blood only) 25.3 % (37.0-47.0); Hemoglobin 8.4 g/dl (12.0-16.0); Mean Corpuscular Hemoglobin 29.3 pg (25.0-34.0); Mean Corpuscular Hgb Conc 33.2 g/dL (32.0-36.0); Mean Corpuscular Volume 88.2 fL (80.0-100.0); Mean Platelet Volume 9.2 fL (9.4-12.4); Platelet Count 316 K/uL (130-400); RDW Coefficient of Variation 14.8 % (11.5-14.5); RDW Standard Deviation 47.6 fL (36.4-46.3); Red Blood Count 2.87 M/uL (4.20-5.40); White Blood Count 5.28 K/ul (4.8-10.8)
[2022-05-23 07:31] LABS: Calcium 9.4 mg/dl (8.5-10.1); Creatinine Clr Calc Pharmacy 19.9 ml/min; Est GFR (African American) 27.9 ml/min; Potassium 4.4 mmol/L (3.5-5.1)
[2022-05-23] MEDS: ACETAMINOPHEN 325 MG TAB PO SCH ×3 (09:24→20:42)
[2022-05-23] MEDS: METOPROLOL SUCC 50MG EXT REL TAB PO SCH ×2 (09:25→20:42)
[2022-05-23] MEDS: PANTOprazole 40 MG TAB PO SCH (09:26)
[2022-05-23] MEDS: allopurinoL 100 MG TAB PO SCH (09:26)
[2022-05-23] MEDS: dilTIAZem HCL 120 MG CAPCR PO SCH (09:26)
[2022-05-23] MEDS: CHOLECALCIFEROL 1,000 UNITS 25 MCG TAB PO SCH (09:26)
[2022-05-23] MEDS: MELATONIN 3 MG TAB PO SCH (20:42)
[2022-05-23] MEDS: ERYTHROMYCIN OP OINT 5 MG/GM 3.5 GM TUBE OPL SCH (20:42)
[2022-05-23] MEDS: LORazepam 0.5 MG TAB PO SCH (20:42)
[2022-05-23] MEDS: SERTRALINE HCL 50 MG TABLET PO SCH (20:43)
--- NOTE | 2022-05-23 21:31 | Hospitalist Progress Note ---
Date of Service May 23, 2022 Assessment & Plan (1) Hematoma of left lower leg: Plan: POD #4 s/p evacuation of hematoma and debridement by Dr Cristina. woundvac remains in place. exchanged yesterday by wound care nurse. photos of woundbed reviewed - beefy red with granulation at borders. minimal erythema superior most portion of border - will need to watch this area closely. previous culture with MRSA. remains on daptomycin. day #8 of such. plan 10 days of daptomycin followed by PO doxy or zyvox? consider ID consultation for final recs on Wednesday. (2) Left leg cellulitis: Plan: 2nd to MRSA. Cont daptomycin IV. See above. (3) Acute on chronic right-sided congestive heart failure: Plan: IV lasix placed on hold several days ago due to rise in creatinine. continue to hold lasix. possibly resume this tomorrow depending on labs & exam findings. recent echo with cor pulmonale and grade 3 diastolic dysfunction. cont BB. (4) Acute blood loss anemia: Plan: 2nd to Left LE hematoma. s/p 1 unit of PRBCs earlier this stay. Eliquis stopped; will not resume. This was previously discussed between prior hospitalist provider and her primary assistant therapy aide. Hb 8.4 today - acceptable. Ferritin 71, transferrin sat 76%. Defer on IV iron replacement. B12/folate wnl. (5) Atrial fibrillation: Plan: Had been mostly Pacing on monitor with occasional a.fib. Continue metoprolol 50mg BID. Continue diltiazem 120mg daily. Eliquis has been stopped. Previous provider spoke with primary assistant therapy aide - will NOT resume anticoagulation moving forward. (6) Chronic kidney disease, stage IV (severe): Plan: Baseline CrCl 20s CrCl 19 today check BMP every 2-3 days for stability Cr had recently summer modestly with diuresis - lasix remains on hold (7) Pacemaker: Plan: pacemaker interrogation w/o issue (was done in April here). pacing with underlying a.fib; no ventricular dysrhythmias noted. (8) Depression: Plan: Continue sertraline 25 mg p.o. 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 Wound care, by report, to arrange this. (10) Left leg weakness: Plan: x-rays of L hip without significant OA CT head negative for acute or chronic CVA lumbar spine CT (cannot obtain MRI as pacemaker device is not MRI compatible) with severe DJD at multiple levels previous knee x-rays with advanced OA suspect LLE weakness is due to combination of severe DJD of l-spine along with severe OA of left knee creating instability when attempted to ambulate/stand/etc she also looks like she may have a left foot drop continue PT/OT consider AFO device for left foot but defer for now (11) Osteoarthritis of knees, bilateral: Plan: appears advanced on exam and by way of x-rays certainly will heighten fall risk consider voltaren gel qid if patient has pain (12) Acute metabolic encephalopathy: Plan: Improved/resolved. 2nd to MRSA infection of LLE; can't rule out toxic effects from pain meds, recent sedation/anesthesia for hematoma evacuation, etc. Cont melatonin 3mg HS. for pain control - *scheduled tylenol 650mg TID *norco 5's prn Plan DNR/DNI. POLST on file. Dispo post-d/c -- SNF. daughter updated at bedside yesterday and updated briefly by phone this evening. Admission and Anticipated Discharge Date Admission Date: May 14, 2022 Subjective no issues overnight pt resting comfortably in bed no new complaints c/o L hol[place] pain with movement also with mild paresthesias of RLE from knee down to the foot - this is chronic she also has similar paresthesias of LLE as well at times ate a good lunch today Review of Systems Review of Systems: cv - no chest pain pulm - no cough or dyspnea GI - no abd pain, no nausea Physical Exam Physical Exam: gen - NAD, resting comfortably in bed skin - stasis changes b/l legs; skin very thin; wound vac in place left lateral mid-[place]; minimal erythema on the superior most border laterally; there is a tiny abrasion/open area on middle of right sin neck - JVD unchanged heart - RRR, s1 s2, 2/6 systolic murmur LSB lungs - CTA b/l abd - soft NT ND BS+; 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; brown stool in bag; hernia is reducible ext - 2+ edema b/l legs, pulses 2+ b/l musculo - severe OA changes b/l knees; valgus positioning of knees neuro - suspected mild L foot drop Results & Data Results & Data ([facility]) Vital Signs (Past 12 Hours) Vital Signs Temp Pulse Resp BP BP Pulse Ox O2 Del Method 05/23/22 20:41 37.5 C 92 H 16 118/73 97 Room Air 05/23/22 15:46 36.5 C 69 16 113/65 96 Room Air Laboratory Results Laboratory Results - last 24 hr 05/23/22 05/23/22 05/23/22 06:41 06:41 06:41 WBC 5.28 RBC 2.87 L Hgb 8.4 L Hct 25.3 L MCV 88.2 MCH 29.3 MCHC 33.2 RDW Std Deviation 47.6 H RDW Coeff of Thee 14.8 H Plt Count 316 MPV 9.2 L Sodium 135 L Potassium 4.4 Chloride 99 Carbon Dioxide 31 Anion Gap 5 BUN 57 H Creatinine 1.84 H Est Cr Clr Drug Dosing 19.9 Est GFR ( Amer) 27.9 Est GFR (Non-Af Amer) 24.0 BUN/Creatinine Ratio 31.0 H Glucose 110 H Calcium 9.4 Total Creatine Kinase 51 PG Care Time/CCT Total # of Minutes Spent Total Time Spent with Patient: Total time spent is greater than 50% in coordination of care (as documented) at patient's floor/unit and/or counseling patient: Coding Level of Care Code 47081 SUB INP/OBS CARE /MIN Diagnoses Hematoma of left lower leg S80.12XA Left leg cellulitis L03.116 Acute on chronic right-sided congestive heart failure I50.813 Acute blood loss anemia D62 Atrial fibrillation I48.91 Atrial fibrillation type: unspecified Chronic kidney disease, stage IV (severe) N18.4 Pacemaker Z95.0 Depression F32.A History of creation of ostomy Z93.9 Left leg weakness R29.898 Osteoarthritis of knees, bilateral M17.0 Acute metabolic encephalopathy G93.41 (1) Atrial fibrillation Atrial fibrillation type: unspecified Qualified Code(s): I48.91 - Unspecified atrial fibrillation
[2022-05-24] MEDS: METOPROLOL SUCC 50MG EXT REL TAB PO SCH ×2 (08:39→20:27)
[2022-05-24] MEDS: PANTOprazole 40 MG TAB PO SCH (08:40)
[2022-05-24] MEDS: allopurinoL 100 MG TAB PO SCH (08:40)
[2022-05-24] MEDS: dilTIAZem HCL 120 MG CAPCR PO SCH (08:40)
[2022-05-24] MEDS: ACETAMINOPHEN 325 MG TAB PO SCH ×3 (08:40→20:26)
[2022-05-24] MEDS: CHOLECALCIFEROL 1,000 UNITS 25 MCG TAB PO SCH (08:40)
[2022-05-24] MEDS: DAPTOmycin 250 MG in SYRINGE 0 ML IV SCH (09:57)
[2022-05-24] MEDS ORDERED: LACTULOSE SYRUP 20 GM/30 ML UDC PO ONE (14:28)
[2022-05-24] MEDS ORDERED: bisacodyL 5 MG TABEC PO ONE (14:29)
--- NOTE | 2022-05-24 14:30 | Hospitalist Progress Note ---
Date of Service May 24, 2022 Assessment & Plan (1) Hematoma of left lower leg: Plan: POD #5 s/p evacuation of hematoma and debridement by Dr Cristina. Woundvac remains in place. photos of woundbed reviewed - beefy red with granulation at borders. previous culture with MRSA. remains on daptomycin. day #9 of such. plan 10 days of daptomycin followed by PO doxy or zyvox? consider ID consultation for final recs on Wednesday. (2) Left leg cellulitis: Plan: 2nd to MRSA. Cont daptomycin IV. See above. (3) Acute on chronic right-sided congestive heart failure: Plan: IV lasix placed on hold several days ago due to rise in creatinine. continue to hold lasix. volume status looks acceptable today. recent echo with cor pulmonale and grade 3 diastolic dysfunction. cont metoprolol succinate 50mg BID. (4) Acute blood loss anemia: Plan: 2nd to Left LE hematoma. s/p 1 unit of PRBCs earlier this stay. Eliquis stopped; will not resume. Ferritin 71, transferrin sat 76%. Defer on IV iron replacement. B12/folate wnl. Repeat CBC in am for stability. (5) Atrial fibrillation: Plan: Had been mostly Pacing on monitor with occasional a.fib. Continue metoprolol 50mg BID. Continue diltiazem 120mg daily. Eliquis has been stopped. Previous provider spoke with primary [employer] division manager - will NOT resume anticoagulation moving forward. (6) Chronic kidney disease, stage IV (severe): Plan: Baseline CrCl 20s check BMP in am for stability (7) Pacemaker: Plan: pacemaker interrogation w/o issue (was done in April here). pacing with underlying a.fib; no ventricular dysrhythmias noted. (8) Depression: Plan: Continue sertraline 25 mg p.o. 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 Wound care, by report, to arrange this. Will f/u with wound care on 05/25/22. (10) Left leg weakness: Plan: x-rays of L hip without significant OA CT head negative for acute or chronic CVA lumbar spine CT (cannot obtain MRI as pacemaker device is not MRI compatible) with severe DJD at multiple levels previous knee x-rays with advanced OA suspect LLE weakness is due to combination of severe DJD of l-spine along with severe OA of left knee creating instability when attempted to ambulate/stand/etc she also looks like she may have a left foot drop continue PT/OT consider AFO device for left foot but defer for now (11) Osteoarthritis of knees, bilateral: Plan: appears advanced on exam and by way of x-rays certainly will heighten fall risk consider voltaren gel qid if patient has pain (12) Acute metabolic encephalopathy: Plan: resolved. 2nd to MRSA infection of LLE; can't rule out toxic effects from pain meds, recent sedation/anesthesia for hematoma evacuation, etc. Cont melatonin 3mg HS. for pain control - *scheduled tylenol 650mg TID *norco 5's prn (13) Left eye complaint: Plan: small stye? cont erythromycin eye ointment at HS warm compresses prn (14) Constipation: Plan: dulcolax + miralax now if no significant results with such then lactulose x 1 Plan DNR/DNI. POLST on file. Dispo post-d/c -- SNF. daughter updated at bedside and by phone over last 48 hours Admission and Anticipated Discharge Date Admission Date: May 14, 2022 Subjective main complaint is that of constipation small firm balls of stool are coming out from her ostomy she feels bloated/full despite the above she is eating well no nausea or emesis pain in left leg similar to previous Review of Systems Review of Systems: gen - continues to feel tired; does not want to get out of bed to the commode; she did sit in the chair for a few hours today, however cv - no orthopnea; no chest pain pulm - no dyspnea or cough Physical Exam Physical Exam: gen - NAD, resting comfortably in bed skin - stasis changes b/l legs; skin very thin; wound vac in place left lateral mid-[place]; no erythema of periphery of this wound; there is a tiny abrasion/open area on middle of right sin eyes - ?small stye medial aspect of left lower eyelid? the lower lid looks erythematous although it is better than previous exams neck - JVD unchanged (nearly to the jaw ) heart - irregular, s1 s2, 2/6 systolic murmur LSB lungs - CTA b/l abd - soft NT ND BS+; 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; brown stool in bag - very firm to touch; hernia is reducible ext - 1-2+ edema b/l legs, pulses 2+ b/l psych - a/o x 3 Results & Data Results & Data ([facility]) Vital Signs (Past 12 Hours) Vital Signs Temp Pulse Resp BP Pulse Ox O2 Del Method 05/24/22 07:52 36.4 C L 85 18 133/83 94 Room Air PG Care Time/CCT Total # of Minutes Spent Total Time Spent with Patient: Total time spent is greater than 50% in coordination of care (as documented) at patient's floor/unit and/or counseling patient: Coding Level of Care Code 05560 SUB INP/OBS CARE 2/35MIN Diagnoses Hematoma of left lower leg S80.12XA Left leg cellulitis L03.116 Acute on chronic right-sided congestive heart failure I50.813 Acute blood loss anemia D62 Atrial fibrillation I48.91 Atrial fibrillation type: unspecified Chronic kidney disease, stage IV (severe) N18.4 Pacemaker Z95.0 Depression F32.A History of creation of ostomy Z93.9 Left leg weakness R29.898 Osteoarthritis of knees, bilateral M17.0 Acute metabolic encephalopathy G93.41 Left eye complaint H57.9 Constipation K59.00 (1) Atrial fibrillation Atrial fibrillation type: unspecified Qualified Code(s): I48.91 - Unspecified atrial fibrillation
[2022-05-24] MEDS: POLYETHYLENE (MIRALAX) 17 GM PACK PO SCH ×2 (15:13→20:27)
[2022-05-24] MEDS: HEPARIN SOD 5,000 UNIT/0.5 ML VIAL SQ SCH ×2 (15:18→20:26)
[2022-05-24] MEDS: ERYTHROMYCIN OP OINT 5 MG/GM 3.5 GM TUBE OPL SCH (20:26)
[2022-05-24] MEDS: LORazepam 0.5 MG TAB PO SCH (20:27)
[2022-05-24] MEDS: MELATONIN 3 MG TAB PO SCH (20:27)
[2022-05-24] MEDS: SERTRALINE HCL 50 MG TABLET PO SCH (20:27)
[2022-05-25 06:13] LABS: Hematocrit (blood only) 25.1 % (37.0-47.0); Hemoglobin 8.3 g/dl (12.0-16.0); Mean Corpuscular Hemoglobin 28.7 pg (25.0-34.0); Mean Corpuscular Hgb Conc 33.1 g/dL (32.0-36.0); Mean Corpuscular Volume 86.9 fL (80.0-100.0); Mean Platelet Volume 9.4 fL (9.4-12.4); Platelet Count 355 K/uL (130-400); RDW Coefficient of Variation 14.8 % (11.5-14.5); Red Blood Count 2.89 M/uL (4.20-5.40)
[2022-05-25 06:39] LABS: BUN Creatinine Ratio 27.3 (10-20); Calcium 8.8 mg/dl (8.5-10.1); Creatinine Clr Calc Pharmacy 22.7 ml/min; Est GFR (African American) 32.8 ml/min; Est GFR (Non-African American) 28.3 ml/min; Potassium 4.7 mmol/L (3.5-5.1)
[2022-05-25] MEDS ORDERED: LACTULOSE SYRUP 20 GM/30 ML UDC PO ONE (09:00)
[2022-05-25] MEDS: allopurinoL 100 MG TAB PO SCH (09:04)
[2022-05-25] MEDS: POLYETHYLENE (MIRALAX) 17 GM PACK PO SCH ×2 (09:04→19:48)
[2022-05-25] MEDS: CHOLECALCIFEROL 1,000 UNITS 25 MCG TAB PO SCH (09:04)
[2022-05-25] MEDS: dilTIAZem HCL 120 MG CAPCR PO SCH (09:04)
[2022-05-25] MEDS: ADVANCED PROBIOTIC 1250 MG CAPSULE PO SCH (09:05)
[2022-05-25] MEDS: METOPROLOL SUCC 50MG EXT REL TAB PO SCH ×2 (09:05→19:46)
[2022-05-25] MEDS: PANTOprazole 40 MG TAB PO SCH (09:05)
[2022-05-25] MEDS: HEPARIN SOD 5,000 UNIT/0.5 ML VIAL SQ SCH ×2 (09:05→19:48)
[2022-05-25] MEDS: ACETAMINOPHEN 325 MG TAB PO SCH ×3 (09:13→19:46)
[2022-05-25] MEDS ORDERED: FUROSEMIDE 20 MG TAB PO ONE (11:21)
--- NOTE | 2022-05-25 11:32 | Hospitalist Progress Note ---
Date of Service May 25, 2022 Assessment & Plan (1) Hematoma of left lower leg: Plan: POD #6 s/p evacuation of hematoma and debridement by Dr Cristina. Woundvac remains in place. photos of woundbed reviewed from this am - beefy red with granulation at borders. the woundbed is very clean. no surrounding cellulitis on exam today or by way of photos during vac exchange. previous culture with MRSA. s/p 10 days in total of IV daptomycin. dapto stopped. changed to doxy 100mg BID today. plan another 5-7 days of doxy then d/c abx? (2) Left leg cellulitis: Plan: 2nd to MRSA. See above in #1. (3) Acute on chronic right-sided congestive heart failure: Plan: IV lasix placed on hold several days ago due to rise in creatinine. creatinine has normalized to her typical baseline. she uses lasix prn at home. to keep I/O balance even will give lasix 20mg po x 1 this am. recent echo with cor pulmonale and grade 3 diastolic dysfunction. cont metoprolol succinate 50mg BID. (4) Acute blood loss anemia: Plan: 2nd to Left LE hematoma. s/p 1 unit of PRBCs earlier this stay. Eliquis stopped; will not resume moving forward. Ferritin 71, transferrin sat 76%. Defer on IV iron replacement. B12/folate wnl. Repeat CBC today with low H/H but acceptable counts. (5) Atrial fibrillation: Plan: Had been mostly Pacing on monitor with occasional a.fib. during my visit today she examined in a.fib and rate was about 100 at rest. Continue metoprolol 50mg BID. Continue diltiazem but increase to 180mg starting tomorrow am. Eliquis has been stopped. Previous provider spoke with primary ship cleaner - will NOT resume anticoagulation moving forward. (6) Chronic kidney disease, stage IV (severe): Plan: Baseline CrCl 20s CrCl and Cr stable today repeat bmp am (7) Pacemaker: Plan: pacemaker interrogation w/o issue (was done in April here). pacing with underlying a.fib; no ventricular dysrhythmias noted. (8) Depression: Plan: Continue sertraline 25 mg p.o. 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 Patient, however, declined the stoma belt by report. (10) Left leg weakness: Plan: x-rays of L hip without significant OA CT head negative for acute or chronic CVA lumbar spine CT (cannot obtain MRI as pacemaker device is not MRI compatible) with severe DJD at multiple levels previous knee x-rays with advanced OA suspect LLE weakness is due to combination of severe DJD of l-spine along with severe OA of left knee creating instability when attempted to ambulate/stand/etc she also looks like she may have a left foot drop continue PT/OT consider AFO device for left foot but defer for now (11) Osteoarthritis of knees, bilateral: Plan: appears advanced on exam and by way of x-rays certainly will heighten fall risk consider voltaren gel qid if patient has pain (12) Acute metabolic encephalopathy: Plan: resolved. 2nd to MRSA infection of LLE; can't rule out toxic effects from pain meds, recent sedation/anesthesia for hematoma evacuation, etc. Cont melatonin 3mg HS. for pain control - *scheduled tylenol 650mg TID *norco 5's prn (13) Left eye complaint: Plan: small stye? cont erythromycin eye ointment at HS warm compresses prn this is improved (14) Constipation: Plan: improved with dose of lactulose today cont miralax BID for maintenance (15) Compression fracture: Plan: T12 4mm retropulsion - mild stenosis only based on CT lumbar spine this admission add calcitonin nasal spray daily cont scheduled tylenol TID cont norco prn this is also contributing to her back pain in addition to advanced DJD if legs become more weak would need urgent MRI t-spine/l-spine to ensure she is not developing acquired, severe spinal stenosis Plan DNR/DNI. BENITA on file. Dispo post-d/c -- SNF. pt wants [facility] [place]. daughter updated by phone this evening Admission and Anticipated Discharge Date Admission Date: May 14, 2022 Subjective no new complaints left leg pain is similar to prior visits hurts most during woundvac exchanges - had 1 this am also with back and right "hip" pain (buttock and posterior hip, not the right groin) appetite remains fair wants to lay in bed; doesn't want to get up to chair today - "I'm worn out" wants to go to [facility] if possible post-discharge Review of Systems Review of Systems: gen - ongoing fatigue cv - no orthopnea; no chest pain pulm - no dyspnea at rest GI - no abd pain; ostomy with copious stool output today eye - left eye lower lid swelling improved Physical Exam Physical Exam: gen - NAD, resting comfortably in bed; looks tired, frail skin - stasis changes b/l legs; skin very thin; wound vac in place left lateral mid-[place]; no erythema of periphery of this wound; there is a tiny abrasion/open area on middle of right holland - unchanged eyes - ?small internal stye medial aspect of left lower eyelid? the lower lid looks erythematous although it is better than previous exams neck - JVD unchanged heart - irregular, s1 s2, 2/6 systolic murmur LSB lungs - CTA b/l abd - soft NT ND BS+; 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; brown stool in bag - not firm/hard today ext - 1-2 + edema b/l legs about the same, pulses 2+ b/l psych - a/o x 3 Results & Data Results & Data ([facility]) Vital Signs (Past 12 Hours) Vital Signs Temp Pulse Resp BP Pulse Ox O2 Del Method 05/25/22 07:38 37.0 C 92 H 18 137/70 95 Room Air Laboratory Results Laboratory Results - last 24 hr 05/25/22 05/25/22 05:27 05:27 WBC 7.40 RBC 2.89 L Hgb 8.3 L Hct 25.1 L MCV 86.9 MCH 28.7 MCHC 33.1 RDW Std Deviation 47.0 H RDW Coeff of Thee 14.8 H Plt Count 355 MPV 9.4 Sodium 136 Potassium 4.7 Chloride 101 Carbon Dioxide 30 Anion Gap 5 BUN 44 H Creatinine 1.61 H Est Cr Clr Drug Dosing 22.7 Est GFR ( Amer) 32.8 Est GFR (Non-Af Amer) 28.3 BUN/Creatinine Ratio 27.3 H Glucose 98 Calcium 8.8 PG Care Time/CCT Total # of Minutes Spent Total Time Spent with Patient: Total time spent is greater than 50% in coordination of care (as documented) at patient's floor/unit and/or counseling patient: Coding Level of Care Code 60920 SUB INP/OBS CARE 3/50MIN Diagnoses Hematoma of left lower leg S80.12XA Left leg cellulitis L03.116 Acute on chronic right-sided congestive heart failure I50.813 Acute blood loss anemia D62 Atrial fibrillation I48.91 Atrial fibrillation type: unspecified Chronic kidney disease, stage IV (severe) N18.4 Pacemaker Z95.0 Depression F32.A History of creation of ostomy Z93.9 Left leg weakness R29.898 Osteoarthritis of knees, bilateral M17.0 Acute metabolic encephalopathy G93.41 Left eye complaint H57.9 Constipation K59.00 Compression fracture (1) Atrial fibrillation Atrial fibrillation type: unspecified Qualified Code(s): I48.91 - Unspecified atrial fibrillation
[2022-05-25] MEDS: CEROVITE ADV FORMULA TAB PO SCH (12:19)
[2022-05-25] MEDS: CALCITONIN SALMON NA 200 IU/AC 3.7 ML BTL SCH (12:19)
[2022-05-25] MEDS: SERTRALINE HCL 50 MG TABLET PO SCH (19:44)
[2022-05-25] MEDS: MELATONIN 3 MG TAB PO SCH (19:44)
[2022-05-25] MEDS: LORazepam 0.5 MG TAB PO SCH (19:45)
[2022-05-25] MEDS: ERYTHROMYCIN OP OINT 5 MG/GM 3.5 GM TUBE OPL SCH (19:47)
[2022-05-26 06:46] LABS: Hemoglobin 7.9 g/dl (12.0-16.0)
[2022-05-26 07:17] LABS: BUN Creatinine Ratio 26.1 (10-20); Creatinine Clr Calc Pharmacy 23.9 ml/min; Est GFR (African American) 34.8 ml/min; Est GFR (Non-African American) 30.1 ml/min; Potassium 4.7 mmol/L (3.5-5.1)
[2022-05-26] MEDS: POLYETHYLENE (MIRALAX) 17 GM PACK PO SCH ×2 (10:11→19:49)
[2022-05-26] MEDS: CALCITONIN SALMON NA 200 IU/AC 3.7 ML BTL SCH (10:11)
[2022-05-26] MEDS: DOXYCYCLINE HYCLATE 100 MG CAP PO SCH ×2 (10:12→19:51)
[2022-05-26] MEDS: dilTIAZem HCL 180 MG CAPCR PO SCH (10:12)
[2022-05-26] MEDS: HEPARIN SOD 5,000 UNIT/0.5 ML VIAL SQ SCH ×2 (10:12→19:49)
[2022-05-26] MEDS: allopurinoL 100 MG TAB PO SCH (10:12)
[2022-05-26] MEDS: CHOLECALCIFEROL 1,000 UNITS 25 MCG TAB PO SCH (10:12)
[2022-05-26] MEDS: PANTOprazole 40 MG TAB PO SCH (10:13)
[2022-05-26] MEDS: CEROVITE ADV FORMULA TAB PO SCH (10:13)
[2022-05-26] MEDS: ADVANCED PROBIOTIC 1250 MG CAPSULE PO SCH (10:13)
[2022-05-26] MEDS: METOPROLOL SUCC 50MG EXT REL TAB PO SCH ×2 (10:13→19:50)
[2022-05-26] MEDS: ACETAMINOPHEN 325 MG TAB PO SCH ×3 (10:24→19:49)
--- NOTE | 2022-05-26 12:39 | Hospitalist Progress Note ---
Date of Service May 26, 2022 Assessment & Plan (1) Hematoma of left lower leg: Plan: POD #7 s/p evacuation of hematoma and debridement by Dr Cristina. Wound vac remains in place. photos of wound bed reviewed no surrounding cellulitis on exam previous culture with MRSA. s/p 10 days in total of IV daptomycin. dapto stopped. changed to doxy 100mg BID on 05/25 and will continue through 05/28 for total of 14 days abx (2) Left leg cellulitis: Plan: 2nd to MRSA. (3) Acute on chronic right-sided congestive heart failure: Plan: IV lasix placed on hold due to rise in creatinine. creatinine has normalized to baseline. she uses lasix prn at home. received lasix 20mg po x 1 on 05/25 recent echo with cor pulmonale and grade 3 diastolic dysfunction. cont metoprolol succinate 50mg BID. follow volume status (4) Acute blood loss anemia: Plan: 2nd to Left LE hematoma. s/p 1 unit of PRBCs earlier this stay. Eliquis stopped; will not resume moving forward. Ferritin 71, transferrin sat 76%. Defer on IV iron replacement. B12/folate wnl. hgb remains low at 7.9 but acceptable and HD stable (5) Atrial fibrillation: Plan: Had been mostly Pacing on monitor with occasional a.fib. examines in a.fib and rates now controlled Continue metoprolol 50mg BID. Continue increased diltiazem dose of 180mg qAM Eliquis has been stopped. Previous provider spoke with primary health service coordinator - will NOT resume anticoagulation moving forward. (6) Chronic kidney disease, stage IV (severe): Plan: Baseline CrCl 20s CrCl and Cr stable (7) Pacemaker: Plan: pacemaker interrogation w/o issue (was done in April here). pacing with underlying a.fib; no ventricular dysrhythmias noted. (8) Depression: Plan: Continue sertraline 25 mg p.o. 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 Patient, however, declined the stoma belt by report. (10) Left leg weakness: Plan: x-rays of L hip without significant OA CT head negative for acute or chronic CVA lumbar spine CT (cannot obtain MRI as pacemaker device is not MRI compatible) with severe DJD at multiple levels previous knee x-rays with advanced OA suspect LLE weakness is due to combination of severe DJD of l-spine along with severe OA of left knee creating instability when attempted to ambulate/stand/etc she also looks like she may have a left foot drop continue PT/OT consider AFO device for left foot but defer for now (11) Osteoarthritis of knees, bilateral: Plan: appears advanced on exam and by way of x-rays certainly will heighten fall risk consider voltaren gel qid if patient has pain (12) Acute metabolic encephalopathy: Plan: resolved. 2nd to MRSA infection of LLE; can't rule out toxic effects from pain meds, recent sedation/anesthesia for hematoma evacuation, etc. Cont melatonin 3mg HS. for pain control - *scheduled tylenol 650mg TID *norco 5's prn but not using for many days (13) Left eye complaint: Plan: small stye? cont erythromycin eye ointment at HS warm compresses prn this is improved (14) Constipation: Plan: improved with dose of lactulose cont miralax BID for maintenance (15) Compression fracture: Plan: T12 with 4mm retropulsion - mild stenosis only based on CT lumbar spine this admission added calcitonin nasal spray daily cont scheduled tylenol TID cont norco prn this is also contributing to her back pain in addition to advanced DJD if legs become more weak would need urgent MRI t-spine/l-spine to ensure she is not developing acquired, severe spinal stenosis Plan DNR/DNI. POLST on file. Dispo post-d/c -- SNF. pt wants [place].Medically stable for discharge, awaiting bed at SNF Admission and Anticipated Discharge Date Admission Date: May 14, 2022 Subjective Has no pain in leg. Eating and drinking, no other concerns. Physical Exam Physical Exam: gen - NAD,sitting in chair at bedsidel skin - stasis changes b/l legs; skin very thin; wound vac in place left lateral mid-[place]; no erythema of periphery of this wound; there is a tiny abrasion/open area on middle of right hol[place] - unchanged heart - irregular, s1 s2, 2/6 systolic murmur LSB lungs - CTA b/l Results & Data Results & Data ([facility]) Vital Signs (Past 12 Hours) Vital Signs Temp Pulse Resp BP Pulse Ox O2 Del Method 05/26/22 07:22 37.1 C 76 16 144/72 H 94 Room Air Laboratory Results hemoglobin reviewed and stable from previous at 7.9 and creatinine stable from previous at 1.5 PG Care Time/CCT Total # of Minutes Spent Total Time Spent with Patient: Total time spent is greater than 50% in coordination of care (as documented) at patient's floor/unit and/or counseling patient: Coding Level of Care Code 23566 SUB INP/OBS CARE 05/13MIN Diagnoses Hematoma of left lower leg S80.12XA Left leg cellulitis L03.116 Acute on chronic right-sided congestive heart failure I50.813 Acute blood loss anemia D62 Atrial fibrillation I48.91 Atrial fibrillation type: unspecified Chronic kidney disease, stage IV (severe) N18.4 Pacemaker Z95.0 Depression F32.A History of creation of ostomy Z93.9 Left leg weakness R29.898 Osteoarthritis of knees, bilateral M17.0 Acute metabolic encephalopathy G93.41 Left eye complaint H57.9 Constipation K59.00 Compression fracture (1) Atrial fibrillation Atrial fibrillation type: unspecified Qualified Code(s): I48.91 - Unspecified atrial fibrillation
[2022-05-26] MEDS: LORazepam 0.5 MG TAB PO SCH (19:50)
[2022-05-26] MEDS: MELATONIN 3 MG TAB PO SCH (19:50)
[2022-05-26] MEDS: SERTRALINE HCL 50 MG TABLET PO SCH (19:51)
[2022-05-26] MEDS: ERYTHROMYCIN OP OINT 5 MG/GM 3.5 GM TUBE OPL SCH (19:52)
[2022-05-27 06:18] LABS: Hemoglobin 7.9 g/dl (12.0-16.0); Mean Corpuscular Hemoglobin 28.3 pg (25.0-34.0); Mean Corpuscular Hgb Conc 32.9 g/dL (32.0-36.0); Mean Platelet Volume 9.1 fL (9.4-12.4); Platelet Count 355 K/uL (130-400); RDW Coefficient of Variation 14.9 % (11.5-14.5); RDW Standard Deviation 46.9 fL (36.4-46.3); Red Blood Count 2.79 M/uL (4.20-5.40); White Blood Count 4.95 K/ul (4.8-10.8)
[2022-05-27] MEDS: allopurinoL 100 MG TAB PO SCH (09:04)
[2022-05-27] MEDS: CALCITONIN SALMON NA 200 IU/AC 3.7 ML BTL SCH (09:05)
[2022-05-27] MEDS: CHOLECALCIFEROL 1,000 UNITS 25 MCG TAB PO SCH (09:06)
[2022-05-27] MEDS: ADVANCED PROBIOTIC 1250 MG CAPSULE PO SCH (09:07)
[2022-05-27] MEDS: dilTIAZem HCL 180 MG CAPCR PO SCH (09:07)
[2022-05-27] MEDS: DOXYCYCLINE HYCLATE 100 MG CAP PO SCH ×2 (09:07→19:53)
[2022-05-27] MEDS: METOPROLOL SUCC 50MG EXT REL TAB PO SCH ×2 (09:08→19:53)
[2022-05-27] MEDS: CEROVITE ADV FORMULA TAB PO SCH (09:08)
[2022-05-27] MEDS: PANTOprazole 40 MG TAB PO SCH (09:08)
[2022-05-27] MEDS: POLYETHYLENE (MIRALAX) 17 GM PACK PO SCH ×2 (09:09→19:52)
[2022-05-27] MEDS: ACETAMINOPHEN 325 MG TAB PO SCH ×2 (09:26→15:09)
[2022-05-27] MEDS: HEPARIN SOD 5,000 UNIT/0.5 ML VIAL SQ SCH ×2 (09:27→19:52)
[2022-05-27 16:09] LABS: Hematocrit (blood only) 26.4 % (37.0-47.0); Hemoglobin 8.5 g/dl (12.0-16.0); Mean Corpuscular Hemoglobin 28.6 pg (25.0-34.0); Mean Corpuscular Hgb Conc 32.2 g/dL (32.0-36.0); Mean Corpuscular Volume 88.9 fL (80.0-100.0); Mean Platelet Volume 9.2 fL (9.4-12.4); Platelet Count 363 K/uL (130-400); RDW Coefficient of Variation 14.9 % (11.5-14.5); RDW Standard Deviation 48.1 fL (36.4-46.3); Red Blood Count 2.97 M/uL (4.20-5.40); White Blood Count 5.82 K/ul (4.8-10.8)
[2022-05-27] MEDS ORDERED: FUROSEMIDE 20 MG TAB PO ONE (17:38)
--- NOTE | 2022-05-27 17:44 | Hospitalist Progress Note ---
Date of Service May 27, 2022 Assessment & Plan (1) Hematoma of left lower leg: Plan: POD #8 s/p evacuation of hematoma and debridement by Dr Cristina. Wound vac remains in place. photos of wound bed reviewed no surrounding cellulitis on exam With increased pain and edema today--> repeat CBC in evening shows increase in hgb so not from bleeding. Pain likely from worsening edema, weight is up--> give lasix 20mg po x 1 now and may need more tomorrow Increase tylenol to 1000mg po tid for pain Avoid [place] if possible previous culture with MRSA. s/p 10 days in total of IV daptomycin. dapto stopped. changed to doxy 100mg BID on 05/25 and will continue through 05/28 for total of 14 days abx (2) Left leg cellulitis: Plan: 2nd to MRSA. resolved (3) Acute on chronic right-sided congestive heart failure: Plan: IV lasix placed on hold due to rise in creatinine. creatinine has normalized to baseline. she uses lasix prn at home. received lasix 20mg po x 1 on 05/25 recent echo with cor pulmonale and grade 3 diastolic dysfunction. cont metoprolol succinate 50mg BID. follow volume status--> weight is up and with increased edema in legs and increased pain --> give lasix 20mg po x 1 now (4) Acute blood loss anemia: Plan: 2nd to Left LE hematoma. s/p 1 unit of PRBCs earlier this stay. Eliquis stopped; will not resume moving forward. Ferritin 71, transferrin sat 76%. Defer on IV iron replacement. B12/folate wnl. hgb remains low at 7.9-8.5- acceptable and HD stable (5) Atrial fibrillation: Plan: Had been mostly Pacing on monitor with occasional a.fib. examines in a.fib and rates now controlled Continue metoprolol 50mg BID. Continue increased diltiazem dose of 180mg qAM Eliquis has been stopped. Previous provider spoke with primary dental amalgam processor - will NOT resume anticoagulation moving forward. (6) Chronic kidney disease, stage IV (severe): Plan: Baseline CrCl 20s CrCl and Cr stable (7) Pacemaker: Plan: pacemaker interrogation w/o issue (was done in April here). pacing with underlying a.fib; no ventricular dysrhythmias noted. (8) Depression: Plan: Continue sertraline 25 mg p.o. 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 Patient, however, declined the stoma belt by report. (10) Left leg weakness: Plan: x-rays of L hip without significant OA CT head negative for acute or chronic CVA lumbar spine CT (cannot obtain MRI as pacemaker device is not MRI compatible) with severe DJD at multiple levels previous knee x-rays with advanced OA suspect LLE weakness is due to combination of severe DJD of l-spine along with severe OA of left knee creating instability when attempted to ambulate/stand/etc she also looks like she may have a left foot drop continue PT/OT consider AFO device for left foot but defer for now (11) Osteoarthritis of knees, bilateral: Plan: appears advanced on exam and by way of x-rays certainly will heighten fall risk consider voltaren gel qid if patient has pain (12) Acute metabolic encephalopathy: Plan: resolved. 2nd to MRSA infection of LLE; can't rule out toxic effects from pain meds, recent sedation/anesthesia for hematoma evacuation, etc. Cont melatonin 3mg HS. for pain control - *scheduled tylenol increase to 1000mg TID *norco 5's prn but not using for many days (13) Left eye complaint: Plan: small stye? cont erythromycin eye ointment at HS warm compresses prn this is improved (14) Constipation: Plan: improved with dose of lactulose cont miralax BID for maintenance (15) Compression fracture: Plan: T12 with 4mm retropulsion - mild stenosis only based on CT lumbar spine this admission added calcitonin nasal spray daily cont scheduled tylenol TID cont norco prn this is also contributing to her back pain in addition to advanced DJD if legs become more weak would need urgent MRI t-spine/l-spine to ensure she is not developing acquired, severe spinal stenosis Plan DNR/DNI. POLST on file. Dispo post-d/c -- SNF. Medically stable for discharge, awaiting bed at SNF- multiple referrals out Discussed care with Bridge Maintenance Worker. Will call daughter with update on 05/27 Admission and Anticipated Discharge Date Admission Date: May 14, 2022 Subjective having more pain in left leg and increased swelling today was OOB to chair for a while today wound vac functioning properly No CP, SOB. Is moving bowels Physical Exam Physical Exam: gen - NAD,sitting in chair at bedsidel skin - stasis changes b/l legs; skin very thin; wound vac in place left lateral mid-[place]; no erythema of periphery of this wound; there is a tiny abrasion/open area on middle of right holland - unchanged Ext+edema 2+ bilat legs and knees heart - irregular, s1 s2, 2/6 systolic murmur LSB lungs - CTA b/l Results & Data Results & Data ([facility]) Vital Signs (Past 12 Hours) Vital Signs Temp Pulse Resp BP Pulse Ox O2 Del Method 05/27/22 15:50 36.9 C 72 16 107/66 97 Room Air 05/27/22 08:23 37.6 C H 92 H 16 133/75 96 Room Air Laboratory Results CBC reviewed PG Care Time/CCT Total # of Minutes Spent Total Time Spent with Patient: Total time spent is greater than 50% in coordination of care (as documented) at patient's floor/unit and/or counseling patient: Coding Level of Care Code 12879 SUB INP/OBS CARE 2/35MIN Diagnoses Hematoma of left lower leg S80.12XA Left leg cellulitis L03.116 Acute on chronic right-sided congestive heart failure I50.813 Acute blood loss anemia D62 Atrial fibrillation I48.91 Atrial fibrillation type: unspecified Chronic kidney disease, stage IV (severe) N18.4 Pacemaker Z95.0 Depression F32.A History of creation of ostomy Z93.9 Left leg weakness R29.898 Osteoarthritis of knees, bilateral M17.0 Acute metabolic encephalopathy G93.41 Left eye complaint H57.9 Constipation K59.00 Compression fracture (1) Atrial fibrillation Atrial fibrillation type: unspecified Qualified Code(s): I48.91 - Unspecified atrial fibrillation
[2022-05-27] MEDS: SERTRALINE HCL 50 MG TABLET PO SCH (19:52)
[2022-05-27] MEDS: ERYTHROMYCIN OP OINT 5 MG/GM 3.5 GM TUBE OPL SCH (19:53)
[2022-05-27] MEDS: LORazepam 0.5 MG TAB PO SCH (19:53)
[2022-05-27] MEDS: MELATONIN 3 MG TAB PO SCH (19:53)
[2022-05-27] MEDS: ACETAMINOPHEN 500 MG TAB PO SCH (19:54)
[2022-05-28 07:07] LABS: Basophils # (auto) 0.02 K/uL (0-0.2); Basophils % (auto) 0.4 %; Eosinophils # (auto) 0.17 K/uL (0-0.50); Eosinophils % (auto) 3.6 %; Hematocrit (blood only) 24.4 % (37.0-47.0); Hemoglobin 7.9 g/dl (12.0-16.0); Immature Granulocytes # (auto) 0.17 K/uL (0.01-0.20); Immature Granulocytes % (auto) 3.6 %; Lymphocytes # (auto) 0.57 K/uL (1.2-3.4); Lymphocytes % (auto) 12.2 %; Mean Corpuscular Hemoglobin 28.3 pg (25.0-34.0); Mean Corpuscular Hgb Conc 32.4 g/dL (32.0-36.0); Mean Corpuscular Volume 87.5 fL (80.0-100.0); Mean Platelet Volume 8.9 fL (9.4-12.4); Monocytes # (auto) 0.82 K/uL (0.11-0.59); Monocytes % (auto) 17.5 %; Neutrophils # (auto) 2.93 K/uL (1.40-6.50); Neutrophils % (auto) 62.7 %; Platelet Count 341 K/uL (130-400); RDW Coefficient of Variation 14.8 % (11.5-14.5); RDW Standard Deviation 47.2 fL (36.4-46.3); Red Blood Count 2.79 M/uL (4.20-5.40); White Blood Count 4.68 K/ul (4.8-10.8)
[2022-05-28 07:43] LABS: RBC Morphology Unremarkable
[2022-05-28 08:05] LABS: BUN Creatinine Ratio 27.6 (10-20); Calcium 8.7 mg/dl (8.5-10.1); Creatinine Clr Calc Pharmacy 23.8 ml/min; Est GFR (Non-African American) 29.4 ml/min; Potassium 4.8 mmol/L (3.5-5.1)
[2022-05-28] MEDS: allopurinoL 100 MG TAB PO SCH (08:31)
[2022-05-28] MEDS: CALCITONIN SALMON NA 200 IU/AC 3.7 ML BTL SCH (08:32)
[2022-05-28] MEDS: ACETAMINOPHEN 500 MG TAB PO SCH ×3 (08:32→20:47)
[2022-05-28] MEDS: CHOLECALCIFEROL 1,000 UNITS 25 MCG TAB PO SCH (08:33)
[2022-05-28] MEDS: dilTIAZem HCL 180 MG CAPCR PO SCH (08:33)
[2022-05-28] MEDS: DOXYCYCLINE HYCLATE 100 MG CAP PO SCH ×2 (08:33→20:46)
[2022-05-28] MEDS: CEROVITE ADV FORMULA TAB PO SCH (08:34)
[2022-05-28] MEDS: METOPROLOL SUCC 50MG EXT REL TAB PO SCH ×2 (08:34→20:53)
[2022-05-28] MEDS: PANTOprazole 40 MG TAB PO SCH (08:34)
[2022-05-28] MEDS: ADVANCED PROBIOTIC 1250 MG CAPSULE PO SCH (08:34)
[2022-05-28] MEDS: POLYETHYLENE (MIRALAX) 17 GM PACK PO SCH ×2 (08:37→20:48)
[2022-05-28] MEDS: HEPARIN SOD 5,000 UNIT/0.5 ML VIAL SQ SCH ×2 (08:37→20:46)
[2022-05-28] MEDS: SERTRALINE HCL 50 MG TABLET PO SCH (20:45)
[2022-05-28] MEDS: ERYTHROMYCIN OP OINT 5 MG/GM 3.5 GM TUBE OPL SCH (20:47)
[2022-05-28] MEDS: LORazepam 0.5 MG TAB PO SCH (20:47)
[2022-05-28] MEDS: MELATONIN 3 MG TAB PO SCH (20:47)
--- NOTE | 2022-05-28 23:57 | Hospitalist Progress Note ---
Date of Service May 28, 2022 Assessment & Plan (1) Hematoma of left lower leg: Plan: POD #9 s/p evacuation of hematoma and debridement by Dr Cristina. Wound vac remains in place. photos of wound bed reviewed no surrounding cellulitis on exam pain and edema improved today after po lasix yesterday and increased dose of tylenol -continue tylenol 1000mg po tid for pain Avoid Mcdavid if possible but is available prn previous culture with MRSA. s/p 10 days in total of IV daptomycin. dapto stopped. changed to doxy 100mg BID on 05/25 and will continue through 05/28 for total of 14 days abx (2) Left leg cellulitis: Plan: 2nd to MRSA. resolved (3) Acute on chronic right-sided congestive heart failure: Plan: IV lasix placed on hold due to rise in creatinine. creatinine has normalized to baseline. she uses lasix prn at home. received lasix 20mg po x 1 on 05/25 and again 05/27 recent echo with cor pulmonale and grade 3 diastolic dysfunction. cont metoprolol succinate 50mg BID. follow volume status-->will make lasix 20mg po MWF (4) Acute blood loss anemia: Plan: 2nd to Left LE hematoma. s/p 1 unit of PRBCs earlier this stay. Eliquis stopped; will not resume moving forward. Ferritin 71, transferrin sat 76%. Defer on IV iron replacement. B12/folate wnl. hgb remains low at 7.9-8.5- acceptable and HD stable (5) Atrial fibrillation: Plan: Had been mostly Pacing on monitor with occasional a.fib. examines in a.fib and rates now controlled Continue metoprolol 50mg BID. Continue increased diltiazem dose of 180mg qAM Eliquis has been stopped. Previous provider spoke with primary detailer furniture - will NOT resume anticoagulation moving forward. (6) Chronic kidney disease, stage IV (severe): Plan: Baseline CrCl 20s CrCl and Cr stable (7) Pacemaker: Plan: pacemaker interrogation w/o issue (was done in April here). pacing with underlying a.fib; no ventricular dysrhythmias noted. (8) Depression: Plan: Continue sertraline 25 mg p.o. 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 Patient, however, declined the stoma belt by report. (10) Left leg weakness: Plan: x-rays of L hip without significant OA CT head negative for acute or chronic CVA lumbar spine CT (cannot obtain MRI as pacemaker device is not MRI compatible) with severe DJD at multiple levels previous knee x-rays with advanced OA suspect LLE weakness is due to combination of severe DJD of l-spine along with severe OA of left knee creating instability when attempted to ambulate/stand/etc she also looks like she may have a left foot drop continue PT/OT consider AFO device for left foot but defer for now (11) Osteoarthritis of knees, bilateral: Plan: appears advanced on exam and by way of x-rays certainly will heighten fall risk consider voltaren gel qid if patient has pain (12) Acute metabolic encephalopathy: Plan: resolved. 2nd to MRSA infection of LLE; can't rule out toxic effects from pain meds, recent sedation/anesthesia for hematoma evacuation, etc. Cont melatonin 3mg HS. for pain control - *scheduled tylenol increase to 1000mg TID *norco 5's prn but not using for many days (13) Left eye complaint: Plan: small stye? cont erythromycin eye ointment at HS warm compresses prn this is improved (14) Constipation: Plan: improved with dose of lactulose cont miralax BID for maintenance (15) Compression fracture: Plan: T12 with 4mm retropulsion - mild stenosis only based on CT lumbar spine this admission added calcitonin nasal spray daily cont scheduled tylenol TID cont norco prn this is also contributing to her back pain in addition to advanced DJD if legs become more weak would need urgent MRI t-spine/l-spine to ensure she is not developing acquired, severe spinal stenosis Plan DNR/DNI. POLST on file. Dispo post-d/c -- SNF. Medically stable for discharge, awaiting bed at SNF-plan for tomorrow Admission and Anticipated Discharge Date Admission Date: May 14, 2022 Subjective Feeling better, less swelling and pain in left leg. No other concerns. Review of Systems Review of Systems: All systems reviewed & are unremarkable except as noted in HPI & below Physical Exam Physical Exam: gen - NAD,sitting in chair at bedsidel skin - stasis changes b/l legs; skin very thin; wound vac in place left lateral [place]; no erythema of periphery of this wound; there is a tiny abrasion/open area on middle of right [place] - unchanged Ext+edema 1+ bilat legs and knees, improved, left leg wound vac in place heart - irregular, s1 s2, 2/6 systolic murmur LSB lungs - CTA b/l Results & Data Results & Data ([facility]) Vital Signs (Past 12 Hours) Vital Signs Temp Pulse Resp BP Pulse Ox O2 Del Method 05/28/22 20:53 36.9 C 78 18 124/72 96 Room Air 05/28/22 15:47 36.6 C 75 18 117/69 98 Room Air Laboratory Results CBC and BMP reviewed PG Care Time/CCT Total # of Minutes Spent Total Time Spent with Patient: Total time spent is greater than 50% in coordination of care (as documented) at patient's floor/unit and/or counseling patient: Coding Level of Care Code 10230 SUB INP/OBS CARE 2/35MIN Diagnoses Hematoma of left lower leg S80.12XA Left leg cellulitis L03.116 Acute on chronic right-sided congestive heart failure I50.813 Acute blood loss anemia D62 Atrial fibrillation I48.91 Atrial fibrillation type: unspecified Chronic kidney disease, stage IV (severe) N18.4 Pacemaker Z95.0 Depression F32.A History of creation of ostomy Z93.9 Left leg weakness R29.898 Osteoarthritis of knees, bilateral M17.0 Acute metabolic encephalopathy G93.41 Left eye complaint H57.9 Constipation K59.00 Compression fracture (1) Atrial fibrillation Atrial fibrillation type: unspecified Qualified Code(s): I48.91 - Unspecified atrial fibrillation
[2022-05-29] MEDS: ACETAMINOPHEN 500 MG TAB PO SCH (08:47)
[2022-05-29] MEDS: dilTIAZem HCL 180 MG CAPCR PO SCH (08:49)
[2022-05-29] MEDS: allopurinoL 100 MG TAB PO SCH (08:49)
[2022-05-29] MEDS: DOXYCYCLINE HYCLATE 100 MG CAP PO SCH (08:50)
[2022-05-29] MEDS: ADVANCED PROBIOTIC 1250 MG CAPSULE PO SCH (08:51)
[2022-05-29] MEDS: METOPROLOL SUCC 50MG EXT REL TAB PO SCH (08:51)
[2022-05-29] MEDS: CEROVITE ADV FORMULA TAB PO SCH (08:52)
[2022-05-29] MEDS: PANTOprazole 40 MG TAB PO SCH (08:52)
[2022-05-29] MEDS ORDERED: FUROSEMIDE 20 MG TAB PO SCH (09:15)
[2022-05-29] MEDS: CALCITONIN SALMON NA 200 IU/AC 3.7 ML BTL SCH (09:25)
[2022-05-29] MEDS: CHOLECALCIFEROL 1,000 UNITS 25 MCG TAB PO SCH (09:25)
[2022-05-29] MEDS: POLYETHYLENE (MIRALAX) 17 GM PACK PO SCH (09:27)
[2022-05-29] MEDS: HEPARIN SOD 5,000 UNIT/0.5 ML VIAL SQ SCH (09:27)
--- NOTE | 2022-05-29 12:18 | Discharge Summary ---
Date of Service May 29, 2022 Admission HPI Per Admitting Provider Mishel is an 86-year-old female with past medical history of A. fib on Eliquis, CHF, anemia, pacemaker placement, and arthritis who presents to the emergency department on recommendation of her primary care provider who reportedly saw patient in her home and found patient with large hematomas, difficulty ambulating, and who has not been able to have home health services set up for care. She had previously refused discharge to rehab/SNFWas discharged home to hopefully get set up with [facility], however no services have been available with no local companies able to take on new patients. Patient had a fall on the and her hematomas on both legs continue to worsen. Left hematoma is oozing and at high risk of infection, although no erythema has been noted to date. Patient is continued on Eliquis for A. fib stroke prophylaxis. Patient reports she is not able to function with her legs the way they are at home, and is now agreeable to admission for additional care and placement. Has also been recommended for surgical evaluation of hematomas with potential drainage. On eliquis fell on Hematomas to both legs Back yesterday with increasing hematoma and more pain Told woul dneed rehab, refused Homecare unable to take her and was denied on multiple attempts PCP went to her house an dcalled EMS for care through the hospital Pt now consents to rehab Bilat lower L>R extremities. Left draining fluid and blood. No active cellulitis Hgb 7.4 Ortho: Needs to see for hematomas Patient seen at bedside. She reports that she has not been able to function at home and since returning to home has been weaker, unable to ambulate, and feels globally washed out. Her left leg is continued to ooze although has not had any sudden gush of bleeding. No other bleeding other than her left leg, continues to have a large hematoma on her right leg which is not as bad. She has not had shortness of breath, dizziness, syncope, presyncope, or chest pain. She has not felt her heart racing. She is agreeable to rehab, risk/benefits of blood were also discussed and patient consented to blood should her levels fall below 7. Otherwise patient confirms history as noted above Medical History: Reviewed Medications: Reviewed Surgical History: Reviewed Allergies: Reviewed Social History: No tobacco/etoh Code Status: DNR Principal Diagnosis LLE hematoma with cellulitis, Anemia Discharge Exam gen - NAD,sitting in chair at bedsidel skin - stasis changes b/l legs; skin very thin; wound vac in place left lateral mid-hol[place]; no erythema of periphery of this wound; there is a tiny abrasion/open area on middle of right holland - unchanged Ext+edema 1+ bilat legs and knees, improved, left leg wound vac in place heart - irregular, s1 s2, / systolic murmur LSB lungs - CTA b/l Discharge Data Allergies Allergy/AdvReac Type Severity Reaction Status Date / Time Iodinated Contrast Media Allergy Severe Difficulty Verified 05/12/22 16:49 Breathing, Severe Hives cephalexin Allergy Unknown Unknown Verified 05/12/22 16:49 diphenhydramine Allergy Unknown DOES NOT Verified 05/12/22 16:49 REMEMBER mushroom Allergy Unknown Unknown Verified 05/12/22 16:49 potassium chloride Allergy Unknown unknown Verified 05/12/22 16:49 Sulfa (Sulfonamide Allergy Unknown Unknown Verified 05/12/22 16:49 Antibiotics) Consultations 05/12/22 15:32 ED Decision to Admit Stat 05/12/22 19:27 Consult General Surgery Routine 05/14/22 17:43 Consult Cardiology Routine 05/18/22 09:00 Consult Palliative Care Routine Procedures Performed Operation Date: 05/19/22 11:15 Actual Procedures p Sharp Debridement of Left Lower Extremity Wound, Evacuation of Hematoma(Left) - Jr Cristina, DO Ordered Studies 05/16/22 15:08 US gallbladder Routine 05/21/22 10:43 CT head/brain wo con Routine CT lumbar spine wo con Routine Hospital Course (1) Hematoma of left lower leg: POD #10 s/p evacuation of hematoma and debridement by Dr Cristina. Wound vac remains in place. photos of wound bed reviewed no surrounding cellulitis on exam pain and edema improved today after po lasix and increased dose of tylenol -continue tylenol 1000mg po tid for pain Avoid [place] if possible but is available prn previous culture with MRSA. s/p 10 days in total of IV daptomycin. dapto stopped. changed to doxy 100mg BID on 05/25 and finsihed out a total of 14 days abx (2) Left leg cellulitis: 2nd to MRSA. resolved (3) Acute on chronic right-sided congestive heart failure: IV lasix placed on hold due to rise in creatinine. creatinine has normalized to baseline. she uses lasix prn at home. received lasix 20mg po x 1 on 05/25 and again 05/27 recent echo with cor pulmonale and grade 3 diastolic dysfunction. cont metoprolol succinate 50mg BID. follow volume status-->will make lasix 20mg po MWF follow BMP in 1 week (4) Acute blood loss anemia: 2nd to Left LE hematoma. s/p 1 unit of PRBCs earlier this stay. Eliquis stopped; will not resume moving forward. Ferritin 71, transferrin sat 76%. Defer on IV iron replacement. B12/folate wnl. hgb remains low at 7.9-8.5- acceptable and HD stable follow CBC in 1 week (5) Atrial fibrillation: Had been mostly Pacing on monitor with occasional a.fib. examines in a.fib and rates now controlled Continue metoprolol 50mg BID. Continue increased diltiazem dose of 180mg qAM Eliquis has been stopped. Previous provider spoke with primary medical accounts receivable specialist - will NOT resume anticoagulation moving forward. (6) Chronic kidney disease, stage IV (severe): Baseline CrCl 20s CrCl and Cr stable (7) Pacemaker: pacemaker interrogation w/o issue (was done in April here). pacing with underlying a.fib; no ventricular dysrhythmias noted. (8) Depression: Continue sertraline 25 mg p.o. nightly (9) History of creation of ostomy: functioning well. With parastomal hernia - consideration being given towards a stoma belt. Patient, however, declined the stoma belt by report. (10) Left leg weakness: x-rays of L hip without significant OA CT head negative for acute or chronic CVA lumbar spine CT (cannot obtain MRI as pacemaker device is not MRI compatible) with severe DJD at multiple levels previous knee x-rays with advanced OA suspect LLE weakness is due to combination of severe DJD of l-spine along with severe OA of left knee creating instability when attempted to ambulate/stand/etc she also looks like she may have a left foot drop continue PT/OT consider AFO device for left foot but defer for now (11) Osteoarthritis of knees, bilateral: appears advanced on exam and by way of x-rays certainly will heighten fall risk consider voltaren gel qid if patient has pain (12) Acute metabolic encephalopathy: resolved. 2nd to MRSA infection of LLE; can't rule out toxic effects from pain meds, recent sedation/anesthesia for hematoma evacuation, etc. Cont melatonin 3mg HS. for pain control - *scheduled tylenol increase to 1000mg TID (13) Left eye complaint: small stye? received erythromycin eye ointment at HS and resolved warm compresses prn this is improved (14) Constipation: improved with dose of lactulose cont miralax BID for maintenance (15) Compression fracture: T12 with 4mm retropulsion - mild stenosis only based on CT lumbar spine this admission added calcitonin nasal spray daily cont scheduled tylenol TID this is also contributing to her back pain in addition to advanced DJD if legs become more weak would need urgent MRI t-spine/l-spine to ensure she is not developing acquired, severe spinal stenosis Plan DNR/DNI. POLST on file. Dispo post-d/c -- SNF. Medically stable for discharge Total Time Total Time Spent Total Time Spent (In Minutes): 35 min Discharge Plan Discharge Items Patient Disposition: Transfer Assisted Fac Reason For Visit: WEAKNESS, ANEMIA, LE HEMATOMA Discharge Diagnosis: Left leg hematoma, leg cellulitis, Anemia Condition on Discharge: Fair Activity: As commented below Lifting: Gradually increase as tolerated Non-emergency contact: Primary Care Provider Call non-emergency contact if: you have any medication questions, your symptoms worsen, your pain is not controlled and you have a fever Follow-up/Referrals: Patti James MD [Primary Care Provider] - Diet: Heart Healthy and Low Sodium (2gm) Addtl Attending Provider Instructions: please follow up in the wound care center upon discharge [address], [address]. [place] [address] #[phone] Addtl Silk Spooler Provider Instructions: Continue the wound vac with dressing changes as ordered. No further antibiotics are needed. Follow a CBC and BMP in 1 week. Pending Studies at Discharge: No Stand-Alone Forms: [facility] Skilled Items Patient informed of condition?: Yes DNR: Yes Discharge Level of Care: Skilled Communicable Disease: No Discharge Prognosis: Improving Lines: None Urinary Catheter: No Medications and DC Order Prescriptions: New diltiazem HCl 180 mg Capsule,Extended Release 24hr 180 mg PO QAM Qty: 30 0RF acetaminophen [Tylenol Extra Strength] 500 mg Tablet 1,000 mg PO TID Qty: 180 0RF polyethylene glycol 3350 [Miralax] 17 gram Powder In Packet 17 g PO BID Qty: 60 0RF calcitonin (salmon) 200 unit/actuation [employer],Non-Aerosol 1 spray NA DAILY Qty: 3.7 0RF cholecalciferol (vitamin D3) 25 mcg (1,000 unit) Capsule 1,000 unit PO QAM Qty: 30 0RF Continued allopurinol 100 mg tablet 100 mg PO QAM omeprazole 20 mg capsule,delayed release(DR/EC) 20 mg PO QAM Centrum Silver Women 8 mg iron-400 mcg-300 mcg Tablet 1 tab PO QAM PreserVision AREDS-2 [id number] [id number] Capsule 1 tab PO BID nitroglycerin [Nitrostat] 0.4 mg Tablet, Sublingual 0.4 mg sublingual DIRECTED PRN (Reason: Chest Pain) Rx Instructions: PLACE ONE TABLET UNDER THE TONGUE EVERY 5 MINUTES FOR UP TO 3 DOSES OVER 15 MINUTES IF NEEDED FOR CHEST PAIN sertraline 25 mg tablet 25 mg PO HS melatonin 3 mg Tablet 3 mg PO HS Qty: 30 0RF diclofenac sodium [Voltaren Arthritis Pain] 1 % Gel 4 g EXT Q6 PRN (Reason: pain) Qty: 100 0RF Rx Instructions: to knees or shoulders metoprolol succinate 50 mg tablet extended release 24 hr 50 mg PO BID lorazepam 0.5 mg tablet 0.5 mg PO HS 3 Days Qty: 3 0RF Changed furosemide 20 mg tablet 20 mg PO 3XWK Qty: 12 0RF Rx Instructions: on Wed Discontinued Eliquis 2.5 mg tablet 2.5 mg PO BID Rx Instructions: THIS MED ON HOLD SINCE 05/10/22 diltiazem HCl 120 mg Capsule,Extended Release 24hr 120 mg PO QAM Qty: 30 0RF Discharge Orders: Discharge Order (Routine); Ordered 05/29/22 Ordered By: Isamar Gómez Admission Data Admit Date/Time: 05/14/22 15:04 Attending Provider: Isamar Gómez Admit Provider: Berhane Oscar Primary Care Provider: Patti James Other Providers: [facility] ; [facility] ; [facility] ; Berhane Oscar ; Jr Cristina ; Darío Milligan ; Angela Cox. Coding Level of Care Code HOSP INP/OBS DISCH >30 MIN Diagnoses Hematoma of left lower leg S80.12XA Left leg cellulitis L03.116 Acute on chronic right-sided congestive heart failure I50.813 Acute blood loss anemia D62 Atrial fibrillation I48.91 Atrial fibrillation type: unspecified Chronic kidney disease, stage IV (severe) N18.4 Pacemaker Z95.0 Depression F32.A History of creation of ostomy Z93.9 Left leg weakness R29.898 Osteoarthritis of knees, bilateral M17.0 Acute metabolic encephalopathy G93.41 Left eye complaint H57.9 Constipation K59.00 Compression fracture
== END 2022-05-29 13:22 | DRG 570 ==
LOC: EDINP 15:06 → ED 15:06 → SUATTDRO 16:50 → 2N 19:28 → SUATTDRO 05-14 15:04 → 3E 05-22 22:03

== ENCOUNTER 2022-09-30 18:23 | Observation (INO) ==
--- NOTE | 2022-09-30 18:27 | Emergency Department Note ---
Impression & Plan Ambulatory dysfunction ADMIT ED Provider Note HPI: The patient is an 87-year-old female with history of atrial fibrillation, currently on Eliquis, who arrives to the emergency department via EMS after 2 falls in the past 24 hours. Patient states that overnight she had a fall in her home. She states she was able to get up under her own power and felt well so she did not seek medical attention. Patient states that shortly prior to arrival today she was getting up from bed to go to the bathroom and she had a second fall inside her home. Patient states she fell onto her left side and hit the left side of her face and the left lateral ribs, she has pain in the area of her left lateral ribs on arrival. Patient is alert and oriented otherwise, she is in no acute distress, she is saturating well on room air on my initial assessment ROS: - Per HPI Differential Diagnosis: Left-sided rib fractures, pneumothorax, hemothorax, intracranial injury to include subdural hematoma, epidural hematoma, skull fracture, amongst other potential pathologies. *Outpatient medications and allergy history reviewed. *Pertinent external medical records reviewed. 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 IV was established and lab work obtained, CT imaging of the head as well as the cervical spine and chest, abdomen, and pelvis were ordered without contrast secondary to history of contrast allergy. Patient declined any analgesia. Lab work shows no leukocytosis, hemoglobin is stable at 9.5 consistent with the patient's history of anemia, platelet count is within normal limits, CMP shows baseline CKD, no transaminitis, bilirubin is within normal limits, urinalysis is pending at the time of my reassessment. CT imaging does not show any evidence of any acute traumatic abnormalities, no fractures. No pneumothorax, no hemothorax. Patient does have some evidence of fluid overload on CT imaging of the chest. She is saturating well on room air however without any increased work of breathing therefore this was not treated aggressively. On my reassessment I did discuss with the patient her ambulatory dysfunction at home, she is 87 years old and lives alone, she has had 2 falls within the past 24 hours. Patient states that she would be agreeable for admission with PT/OT evaluation to determine her ability to safely take care of herself at home. She states ultimately she does not feel safe going home tonight but she would hope to return home soon with possibly home services. I did discuss all of the above with the on-call hospitalist, Dr. Harper, who accepted the patient to an inpatient bed for further management. Consultants: Hospitalist, Dr. Harper Disposition discussion held by myself with: Patient Diagnosis: 1. Ambulatory dysfunction with multiple mechanical falls 2. Left-sided facial abrasion 3. Rib contusions 4. 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) Dizziness DJD (degenerative joint disease) Fall GI bleed Gouty arthritis Hemarthrosis Hip hematoma, left Left knee DJD Osteoarthritis Pacemaker Right rib fracture Systolic CHF, chronic Weakness Surgical History H/O: hysterectomy (03/28/12) S/P debridement (05/19/22) Sharp Debridement of Left Lower Extremity Wound ( full thickness, greater than 200 sq cm), Evacuation of Hematoma(Left) - Jr Cristina DO Family History Other Family history non-contributory Social History Smoking Status: Never smoker Do You Dip or Chew Tobacco: No; Hx Alcohol Use: No Hx Substance Use: No Preferred Language: [place] Citizen Communication Ability: Effective 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 Policy 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: No Beliefs That Will Affect Care: None marital status: / Current Living Situation: Alone and [facility]it[facility] current occupational status: retired Feels Safe at Home: No Is there a partner from a previous relationship who is making you feel unsafe now?: No Diet: regular caffeine: No Seatbelt Use: always Do you think of yourself as: straight/heterosexual Gender Identity: Female Assistive Devices: Glasses, Walker and Wheelchair Allergies Allergies Allergy/AdvReac Type Severity Reaction Status Date / Time Iodinated Contrast Media Allergy Severe Difficulty Verified 06/08/22 10:47 Breathing, Severe Hives cephalexin Allergy Unknown Unknown Verified 06/08/22 10:47 diphenhydramine Allergy Unknown DOES NOT Verified 06/08/22 10:47 REMEMBER mushroom Allergy Unknown Unknown Verified 06/08/22 10:47 potassium chloride Allergy Unknown unknown Verified 06/08/22 10:47 Sulfa (Sulfonamide Allergy Unknown Unknown Verified 06/08/22 10:47 Antibiotics) Home Meds Home Medications Medication Instructions Recorded Confirmed allopurinol 100 mg tablet 100 mg PO QAM 06/20/19 09/30/22 multivit with 1 tab PO QAM 06/20/19 09/30/22 [id number] 8 mg iron-400 mcg-300 mcg tablet (Centrum Silver Women) nitroglycerin 0.4 mg sublingual 0.4 mg sublingual DIRECTED PRN 06/20/19 tablet (Nitrostat) Chest Pain omeprazole 20 mg capsule,delayed 20 mg PO QAM 06/20/19 09/30/22 release vit C 250 mg-vit E 90 mg-zinc 40 1 tab PO BID 06/20/19 09/30/22 mg-copper 1 [id number] capsule (PreserVision AREDS-2) sertraline 25 mg tablet 25 mg PO HS 10/06/19 09/30/22 metoprolol succinate 50 mg 50 mg PO BID 05/09/22 09/30/22 tablet,extended release 24 hr docusate sodium 100 mg capsule 100 mg PO DAILY 06/08/22 09/30/22 (Colace) acetaminophen 500 mg tablet 1,000 mg PO TID PRN Pain 09/30/22 09/30/22 (Tylenol Extra Strength) furosemide 20 mg tablet 20 mg PO 2XWK 09/30/22 09/30/22 Previous Rx's Medication Instructions Recorded diclofenac sodium 1 % topical gel 4 g EXT Q6 PRN pain #100 grams 07/31/21 (Voltaren Arthritis Pain) melatonin 3 mg tablet 3 mg PO HS #30 tabs 07/31/21 calcitonin (salmon) 200 1 spray NA DAILY #3.7 mL 05/29/22 unit/actuation nasal spray cholecalciferol (vitamin D3) 25 1,000 unit PO QAM #30 caps 05/29/22 mcg (1,000 unit) capsule diltiazem HCl 180 mg 180 mg PO QAM #30 caps 05/29/22 capsule,extended release 24 hr lorazepam 0.5 mg tablet 0.5 mg PO HS 3 days #3 tabs 05/29/22 polyethylene glycol 3350 17 gram 17 g PO BID #60 ea 05/29/22 oral powder packet (Miralax) Results & Data (ED) Vital Signs Vital Signs - 24 hr 09/30/22 18:49 09/30/22 18:49 09/30/22 18:49 Temperature 36.7 C 36.7 C Temperature Source Oral Oral Pulse Rate 106 H 106 H Pulse Rate [Apical] 106 H Respiratory Rate 17 17 17 Respiratory Effort / Characteristics Non-Labored Spontaneous Non-Labored Spontaneous Respiratory Depth Normal Normal Respiratory Pattern Regular Regular Blood Pressure 158/121 H Blood Pressure [Right Arm] 158/121 H Blood Pressure Mean 133 Blood Pressure Mean [Right Arm] 133 Blood Pressure Position Lying Blood Pressure Position [Right Arm] Pulse Oximetry 94 94 94 Oxygen Delivery Method Room Air Room Air Room Air Sepsis Recent Fever Within 48 Hours No Sepsis New/Unexplained Change in Mental Status N/A Sepsis Action Taken by Nursing No Action Required 09/30/22 18:43 09/30/22 20:30 Temperature Temperature Source Pulse Rate 108 H Pulse Rate [Apical] 101 H Respiratory Rate 18 Respiratory Effort / Characteristics Respiratory Depth Respiratory Pattern Blood Pressure Blood Pressure [Right Arm] 184/121 H Blood Pressure Mean Blood Pressure Mean [Right Arm] 142 Blood Pressure Position Blood Pressure Position [Right Arm] Lying Pulse Oximetry 98 Oxygen Delivery Method Room Air Sepsis Recent Fever Within 48 Hours Sepsis New/Unexplained Change in Mental Status Sepsis Action Taken by Nursing Laboratory Data 09/30/22 18:49 09/30/22 18:49 Lab Results 09/30/22 09/30/22 09/30/22 Range/Units 18:49 18:49 18:49 WBC 8.78 (4.8-10.8) K/ul RBC 3.69 L (4.20-5.40) M/uL Hgb 9.5 L (12.0-16.0) g/dl Hct 29.8 L (37.0-47.0) % MCV 80.8 (80.0-100.0) fL MCH 25.7 (25.0-34.0) pg MCHC 31.9 L (32.0-36.0) g/dL RDW Std Deviation 51.2 H (36.4-46.3) fL RDW Coeff of Thee 17.6 H (11.5-14.5) % Plt Count 282 (130-400) K/uL MPV 10.0 (9.4-12.4) fL Immature Gran % (Auto) 0.9 % Neut % (Auto) 71.9 % Lymph % (Auto) 7.3 % [place] % (Auto) 15.9 % Eos % (Auto) 3.4 % Baso % (Auto) 0.6 % Neut # (Auto) 6.31 (1.40-6.50) K/uL Lymph # (Auto) 0.64 L (1.2-3.4) K/uL [place] # (Auto) 1.40 H (0.11-0.59) K/uL Eos # (Auto) 0.30 (0-0.50) K/uL Baso # (Auto) 0.05 (0-0.2) K/uL Immature Gran # (Auto) 0.08 (0.01-0.20) K/uL PT 12.7 H (9.0-12.0) Seconds INR 1.2 H (0.9-1.1) Sodium 138 (136-145) mmol/L Potassium 4.2 (3.5-5.1) mmol/L Chloride 103 (98-107) mmol/L Carbon Dioxide 24 (21-32) mmol/L Anion Gap 11 (3-11) BUN 35 H (6-23) mg/dl Creatinine 1.54 H (0.6-1.2) mg/dl Est Cr Clr Drug Dosing 24.6 ml/min Est GFR ( Amer) 34.3 ml/min Est GFR (Non-Af Amer) 29.6 ml/min BUN/Creatinine Ratio 22.7 H (10-20) Glucose 123 H (70-99(Fasting)) mg/dl Calcium 9.2 (8.6-10.3) mg/dl Total Bilirubin 0.6 (0.2-1.0) mg/dl AST 19 (13-39) U/L ALT 12 (7-52) U/L Alkaline Phosphatase 133 H (34-104) U/L Total Protein 7.5 (6.0-8.3) gm/dl Albumin 3.8 (3.4-5.0) gm/dl Globulin 3.7 (2.5-4.0) gm/dl Albumin/Globulin Ratio 1.0 (0.9-2) SARS-CoV-2, RNA, NAAT (NEGATIVE) 09/30/22 Range/Units 20:00 WBC (4.8-10.8) K/ul RBC (4.20-5.40) M/uL Hgb (12.0-16.0) g/dl Hct (37.0-47.0) % MCV (80.0-100.0) fL MCH (25.0-34.0) pg MCHC (32.0-36.0) g/dL RDW Std Deviation (36.4-46.3) fL RDW Coeff of Thee (11.5-14.5) % Plt Count (130-400) K/uL MPV (9.4-12.4) fL Immature Gran % (Auto) % Neut % (Auto) % Lymph % (Auto) % [place] % (Auto) % Eos % (Auto) % Baso % (Auto) % Neut # (Auto) (1.40-6.50) K/uL Lymph # (Auto) (1.2-3.4) K/uL [place] # (Auto) (0.11-0.59) K/uL Eos # (Auto) (0-0.50) K/uL Baso # (Auto) (0-0.2) K/uL Immature Gran # (Auto) (0.01-0.20) K/uL PT (9.0-12.0) Seconds INR (0.9-1.1) Sodium (136-145) mmol/L Potassium (3.5-5.1) mmol/L Chloride (98-107) mmol/L Carbon Dioxide (21-32) mmol/L Anion Gap (3-11) BUN (6-23) mg/dl Creatinine (0.6-1.2) mg/dl Est Cr Clr Drug Dosing ml/min Est GFR ( Amer) ml/min Est GFR (Non-Af Amer) ml/min BUN/Creatinine Ratio (10-20) Glucose (70-99(Fasting)) mg/dl Calcium (8.6-10.3) mg/dl Total Bilirubin (0.2-1.0) mg/dl AST (13-39) U/L ALT (7-52) U/L Alkaline Phosphatase (34-104) U/L Total Protein (6.0-8.3) gm/dl Albumin (3.4-5.0) gm/dl Globulin (2.5-4.0) gm/dl Albumin/Globulin Ratio (0.9-2) SARS-CoV-2, RNA, NAAT NEGATIVE (NEGATIVE) Administered Medications Discontinued Medications Sodium Chloride (Nss) 500 mls @ 999 mls/hr IV .Q31M SACHA Stop: 09/30/22 19:15 Last Admin: 09/30/22 20:00 Dose: 999 mls/hr Documented By: QGV Imaging Data Radiologist's Impression: Cervical Spine CT 09/30/22 18:31 Exam(s): CT C SPINE EXAM: CT Cervical Spine Without Intravenous Contrast CLINICAL HISTORY: Reason for exam: Trauma. TECHNIQUE: Axial computed tomography images of the cervical spine without intravenous contrast. CTDI is 20.29 mGy and DLP is 604.5 mGy-cm. Automated exposure control was utilized for the study. A dose lowering technique was utilized adhering to the principles of ALARA. Mild motion and dental metal artifact. COMPARISON: CT cervical spine 05/16/21. FINDINGS: Vertebrae: Straightening of the normal cervical lordosis, nonspecific, may relate to patient positioning, muscle spasm and/or degenerative change.. No acute fracture. Discs/spinal canal/neural foramina: Moderate degenerative disc and facet disease, stable. Soft tissues: Mild interstitial and airspace prominence in the lung apices, see separately dictated chest CT. IMPRESSION: 1. Stable moderate degenerative change. 2. No fracture or acute bony abnormality. Electronically signed by: Marisol Leon M.D. 09/30/22 20:[address] 09/30/22 18:31 Exam(s): CT FACIAL Without Contrast EXAM: CT Maxillofacial Without Intravenous Contrast CLINICAL HISTORY: Reason for exam: Trauma. TECHNIQUE: Axial computed tomography images of the face without intravenous contrast. CTDI is 30.34 mGy and DLP is 1313.29 mGy-cm. Automated exposure control was utilized for the study. A dose lowering technique was utilized adhering to the principles of ALARA. COMPARISON: No relevant prior studies available. FINDINGS: Bones/joints: No acute fracture. Soft tissues: Unremarkable. Orbits: Unremarkable. No globe injury, retro-orbital hemorrhage or proptosis. Sinuses: Unremarkable. No air-fluid levels. IMPRESSION: 1. No nasal bone, orbital wall or facial fracture. Electronically signed by: Marisol Leon M.D. 09/30/22 20:[address] 09/30/22 18:31 Exam(s): CT HEAD Without Contrast EXAM: CT Head Without Intravenous Contrast CLINICAL HISTORY: Reason for exam: Trauma. TECHNIQUE: Axial computed tomography images of the head/brain without intravenous contrast. CTDI is 20.3 mGy and DLP is 609 mGy-cm. Automated exposure control was utilized for the study. A dose lowering technique was utilized adhering to the principles of ALARA. COMPARISON: None. FINDINGS: Brain: No mass effect or acute infarct. No acute hemorrhage. Mild/moderate atrophy and chronic, nonspecific white matter disease. Ventricles: No hydrocephalus or midline shift. Bones/joints: No skull fracture. Soft tissues: No scalp hematoma. Sinuses: Clear. Mastoid air cells: No mastoid effusion. IMPRESSION: 1. Mild to moderate age-related findings. 2. No skull fracture, acute bleed, or acute intracranial abnormality. Electronically signed by: Marisol Leon M.D. 09/30/22 20:03 PM Abdomen/Pelvis CT 09/30/22 18:32 Exam(s): CT ABDOMEN + PELVIS Without Contrast EXAM: CT Abdomen and Pelvis Without Intravenous Contrast CLINICAL HISTORY: Reason for exam: Fall, L flank pain and rib pain. TECHNIQUE: Axial computed tomography images of the abdomen and pelvis without intravenous contrast. CTDI is 26.96 mGy and DLP is 617.1 mGy-cm. Automated exposure control was utilized for the study. A dose lowering technique was utilized adhering to the principles of ALARA. COMPARISON: CT abdomen pelvis 02/08/19 FINDINGS: Liver: No injury. Gallbladder and bile ducts: Stable cholelithiasis. No ductal dilation. Pancreas: No ductal dilation. Spleen: No laceration. Adrenals: Unremarkable. No mass. Kidneys and ureters: No injury. Stomach and bowel: No obstruction. Intraperitoneal space: Mild ascites around the spleen, and predominantly within peristomal hernia. No free air or significant fluid. Bones/joints: New, moderate, biconcave T12 compression fracture, presumed acute. No significant retropulsion or paraspinous hematoma. Severe degenerative disc disease in the visualized spine with osteoporosis. No pelvic or femur fracture. Soft tissues: Peristomal hernia again seen, however, now there is a large amount of fluid within the hernia sac; no bowel obstruction. Fat- containing umbilical hernia is stable, though now contains a mild amount of fluid. Vasculature: Stable severe ectasia and moderate atherosclerosis. No abdominal aortic aneurysm. Lymph nodes: No enlarged lymph nodes. Bladder: No injury. Reproductive: Unremarkable as visualized. IMPRESSION: 1. T12 compression fracture, age indeterminate, may be acute. Correlate clinically, and if necessary with MRI thoracic spine. 2. Mild ascites that extends into both peristomal and umbilical hernias. No small bowel obstruction. 3. Incidental cholelithiasis. 4. No obvious parenchymal laceration or hemoperitoneum. Electronically signed by: Marisol Leon M.D. 09/30/22 20:[address] 09/30/22 18:32 Exam(s): CT CHEST Without Contrast EXAM: CT Chest Without Intravenous Contrast CLINICAL HISTORY: Reason for exam: Trauma, L sided rib pain. TECHNIQUE: Axial computed tomography images of the chest without intravenous contrast. CTDI is 26.96 mGy and DLP is 617.1 mGy-cm. Automated exposure control was utilized for the study. A dose lowering technique was utilized adhering to the principles of ALARA. COMPARISON: Chest x-ray 11/19/20, and CT abdomen pelvis 02/08/19. FINDINGS: Lungs: Vascular and interstitial prominence with subtle airspace disease bilaterally, nonspecific, could reflect early CHF and pulmonary edema; mild pneumonia not excluded. No consolidation. Pulmonary arteries: No engorgement. Aorta: No thoracic aortic aneurysm. Pleural space: Trace, bilateral dependent pleural thickening or mild pleural effusion. No pneumothorax. Heart: Moderate to severe cardiomegaly and pacemaker. No significant pericardial effusion. Bones/joints: Moderate biconcave T12 compression fracture, age indeterminate, presumed acute given history, and new compared to CT abdomen pelvis January 2019. No sternal, scapular, or displaced rib fracture. Soft tissues: No significant paraspinous hematoma at T12. Lymph nodes: Nonspecific, nonenlarged mediastinal nodes. No enlarged lymph nodes. IMPRESSION: 1. Biconcave T12 compression fracture, age indeterminate, presumed acute. 2. Cardiomegaly, vascular prominence, mild pulmonary infiltrates and effusions are nonspecific, cannot rule out CHF with pulmonary edema and/or pneumonia. Electronically signed by: Marisol Leon M.D. 09/30/22 20:24 PM Discharge Plan Visit Data Chief Complaint: Fall Stated Complaint: FALL, NOT INJURIED, NOT SAFE ALONE AT HOME ED Provider: Max Quintanilla Discharge Problem: Ambulatory dysfunction Forms Stand Alone Forms: [facility] Prescriptions Prescriptions: No Action docusate sodium [Colace] 100 mg capsule 100 mg PO DAILY allopurinol 100 mg tablet 100 mg PO QAM omeprazole 20 mg capsule,delayed release(DR/EC) 20 mg PO QAM Centrum Silver Women 8 mg iron-400 mcg-300 mcg Tablet 1 tab PO QAM PreserVision AREDS-2 [id number] [id number] Capsule 1 tab PO BID nitroglycerin [Nitrostat] 0.4 mg Tablet, Sublingual 0.4 mg sublingual DIRECTED PRN (Reason: Chest Pain) Rx Instructions: PLACE ONE TABLET UNDER THE TONGUE EVERY 5 MINUTES FOR UP TO 3 DOSES OVER 15 MINUTES IF NEEDED FOR CHEST PAIN sertraline 25 mg tablet 25 mg PO HS melatonin 3 mg Tablet 3 mg PO HS Qty: 30 0RF diclofenac sodium [Voltaren Arthritis Pain] 1 % Gel 4 g EXT Q6 PRN (Reason: pain) Qty: 100 0RF Rx Instructions: to knees or shoulders furosemide 20 mg tablet 20 mg PO 2XWK Rx Instructions: may take as needed for swelling acetaminophen [Tylenol Extra Strength] 500 mg tablet 1,000 mg PO TID PRN (Reason: Pain) metoprolol succinate 50 mg tablet extended release 24 hr 50 mg PO BID diltiazem HCl 180 mg Capsule,Extended Release 24hr 180 mg PO QAM Qty: 30 0RF polyethylene glycol 3350 [Miralax] 17 gram Powder In Packet 17 g PO BID Qty: 60 0RF calcitonin (salmon) 200 unit/actuation [place],Non-Aerosol 1 spray NA DAILY Qty: 3.7 0RF cholecalciferol (vitamin D3) 25 mcg (1,000 unit) Capsule 1,000 unit PO QAM Qty: 30 0RF lorazepam 0.5 mg tablet 0.5 mg PO HS 3 Days Qty: 3 0RF Referrals Referrals: Patti James MD [Primary Care Provider] -
[2022-09-30] MEDS ORDERED: SODIUM CHLORIDE 0.9% 500 ML IV SCH (18:45)
[2022-09-30 19:13] LABS: Basophils # (auto) 0.05 K/uL (0-0.2); Basophils % (auto) 0.6 %; Eosinophils % (auto) 3.4 %; Hematocrit (blood only) 29.8 % (37.0-47.0); Hemoglobin 9.5 g/dl (12.0-16.0); Immature Granulocytes # (auto) 0.08 K/uL (0.01-0.20); Immature Granulocytes % (auto) 0.9 %; Lymphocytes # (auto) 0.64 K/uL (1.2-3.4); Lymphocytes % (auto) 7.3 %; Mean Corpuscular Hemoglobin 25.7 pg (25.0-34.0); Mean Corpuscular Hgb Conc 31.9 g/dL (32.0-36.0); Mean Corpuscular Volume 80.8 fL (80.0-100.0); Monocytes % (auto) 15.9 %; Neutrophils # (auto) 6.31 K/uL (1.40-6.50); Neutrophils % (auto) 71.9 %; Platelet Count 282 K/uL (130-400); RDW Coefficient of Variation 17.6 % (11.5-14.5); RDW Standard Deviation 51.2 fL (36.4-46.3); Red Blood Count 3.69 M/uL (4.20-5.40); White Blood Count 8.78 K/ul (4.8-10.8)
[2022-09-30 19:26] LABS: Albumin Level 3.8 gm/dl (3.4-5.0); BUN Creatinine Ratio 22.7 (10-20); Bilirubin,Total 0.6 mg/dl (0.2-1.0); Calcium 9.2 mg/dl (8.6-10.3); Creatinine Clr Calc Pharmacy 24.6 ml/min; Est GFR (African American) 34.3 ml/min; Est GFR (Non-African American) 29.6 ml/min; Globulin 3.7 gm/dl (2.5-4.0); Potassium 4.2 mmol/L (3.5-5.1); Total Protein 7.5 gm/dl (6.0-8.3)
[2022-09-30 19:47] LABS: INR 1.2 (0.9-1.1); Prothrombin Time 12.7 Seconds (9.0-12.0)
--- NOTE | 2022-09-30 20:04 | CT Scan Report ---
Exam(s): CT HEAD Without Contrast EXAM: CT Head Without Intravenous Contrast CLINICAL HISTORY: Reason for exam: Trauma. TECHNIQUE: Axial computed tomography images of the head/brain without intravenous contrast. CTDI is 20.3 mGy and DLP is 609 mGy-cm. Automated exposure control was utilized for the study. A dose lowering technique was utilized adhering to the principles of ALARA. COMPARISON: None. FINDINGS: Brain: No mass effect or acute infarct. No acute hemorrhage. Mild/moderate atrophy and chronic, nonspecific white matter disease. Ventricles: No hydrocephalus or midline shift. Bones/joints: No skull fracture. Soft tissues: No scalp hematoma. Sinuses: Clear. Mastoid air cells: No mastoid effusion. IMPRESSION: 1. Mild to moderate age-related findings. 2. No skull fracture, acute bleed, or acute intracranial abnormality. Electronically signed by: Marisol Leon M.D. 09/30/22 20:03 PM
--- NOTE | 2022-09-30 20:13 | CT Scan Report ---
Exam(s): CT FACIAL Without Contrast EXAM: CT Maxillofacial Without Intravenous Contrast CLINICAL HISTORY: Reason for exam: Trauma. TECHNIQUE: Axial computed tomography images of the face without intravenous contrast. CTDI is 30.34 mGy and DLP is 1313.29 mGy-cm. Automated exposure control was utilized for the study. A dose lowering technique was utilized adhering to the principles of ALARA. COMPARISON: No relevant prior studies available. FINDINGS: Bones/joints: No acute fracture. Soft tissues: Unremarkable. Orbits: Unremarkable. No globe injury, retro-orbital hemorrhage or proptosis. Sinuses: Unremarkable. No air-fluid levels. IMPRESSION: 1. No nasal bone, orbital wall or facial fracture. Electronically signed by: Marisol Leon M.D. 09/30/22 20:12 PM
--- NOTE | 2022-09-30 20:25 | CT Scan Report ---
Exam(s): CT CHEST Without Contrast EXAM: CT Chest Without Intravenous Contrast CLINICAL HISTORY: Reason for exam: Trauma, L sided rib pain. TECHNIQUE: Axial computed tomography images of the chest without intravenous contrast. CTDI is 26.96 mGy and DLP is 617.1 mGy-cm. Automated exposure control was utilized for the study. A dose lowering technique was utilized adhering to the principles of ALARA. COMPARISON: Chest x-ray 11/19/20, and CT abdomen pelvis 02/08/19. FINDINGS: Lungs: Vascular and interstitial prominence with subtle airspace disease bilaterally, nonspecific, could reflect early CHF and pulmonary edema; mild pneumonia not excluded. No consolidation. Pulmonary arteries: No engorgement. Aorta: No thoracic aortic aneurysm. Pleural space: Trace, bilateral dependent pleural thickening or mild pleural effusion. No pneumothorax. Heart: Moderate to severe cardiomegaly and pacemaker. No significant pericardial effusion. Bones/joints: Moderate biconcave T12 compression fracture, age indeterminate, presumed acute given history, and new compared to CT abdomen pelvis January 2019. No sternal, scapular, or displaced rib fracture. Soft tissues: No significant paraspinous hematoma at T12. Lymph nodes: Nonspecific, nonenlarged mediastinal nodes. No enlarged lymph nodes. IMPRESSION: 1. Biconcave T12 compression fracture, age indeterminate, presumed acute. 2. Cardiomegaly, vascular prominence, mild pulmonary infiltrates and effusions are nonspecific, cannot rule out CHF with pulmonary edema and/or pneumonia. Electronically signed by: Marisol Leon M.D. 09/30/22 20:24 PM
--- NOTE | 2022-09-30 20:26 | CT Scan Report ---
Exam(s): CT ABDOMEN + PELVIS Without Contrast EXAM: CT Abdomen and Pelvis Without Intravenous Contrast CLINICAL HISTORY: Reason for exam: Fall, L flank pain and rib pain. TECHNIQUE: Axial computed tomography images of the abdomen and pelvis without intravenous contrast. CTDI is 26.96 mGy and DLP is 617.1 mGy-cm. Automated exposure control was utilized for the study. A dose lowering technique was utilized adhering to the principles of ALARA. COMPARISON: CT abdomen pelvis 02/08/19 FINDINGS: Liver: No injury. Gallbladder and bile ducts: Stable cholelithiasis. No ductal dilation. Pancreas: No ductal dilation. Spleen: No laceration. Adrenals: Unremarkable. No mass. Kidneys and ureters: No injury. Stomach and bowel: No obstruction. Intraperitoneal space: Mild ascites around the spleen, and predominantly within peristomal hernia. No free air or significant fluid. Bones/joints: New, moderate, biconcave T12 compression fracture, presumed acute. No significant retropulsion or paraspinous hematoma. Severe degenerative disc disease in the visualized spine with osteoporosis. No pelvic or femur fracture. Soft tissues: Peristomal hernia again seen, however, now there is a large amount of fluid within the hernia sac; no bowel obstruction. Fat- containing umbilical hernia is stable, though now contains a mild amount of fluid. Vasculature: Stable severe ectasia and moderate atherosclerosis. No abdominal aortic aneurysm. Lymph nodes: No enlarged lymph nodes. Bladder: No injury. Reproductive: Unremarkable as visualized. IMPRESSION: 1. T12 compression fracture, age indeterminate, may be acute. Correlate clinically, and if necessary with MRI thoracic spine. 2. Mild ascites that extends into both peristomal and umbilical hernias. No small bowel obstruction. 3. Incidental cholelithiasis. 4. No obvious parenchymal laceration or hemoperitoneum. Electronically signed by: Marisol Leon M.D. 09/30/22 20:25 PM
--- NOTE | 2022-09-30 20:27 | CT Scan Report ---
Exam(s): CT C SPINE EXAM: CT Cervical Spine Without Intravenous Contrast CLINICAL HISTORY: Reason for exam: Trauma. TECHNIQUE: Axial computed tomography images of the cervical spine without intravenous contrast. CTDI is 20.29 mGy and DLP is 604.5 mGy-cm. Automated exposure control was utilized for the study. A dose lowering technique was utilized adhering to the principles of ALARA. Mild motion and dental metal artifact. COMPARISON: CT cervical spine 05/16/21. FINDINGS: Vertebrae: Straightening of the normal cervical lordosis, nonspecific, may relate to patient positioning, muscle spasm and/or degenerative change.. No acute fracture. Discs/spinal canal/neural foramina: Moderate degenerative disc and facet disease, stable. Soft tissues: Mild interstitial and airspace prominence in the lung apices, see separately dictated chest CT. IMPRESSION: 1. Stable moderate degenerative change. 2. No fracture or acute bony abnormality. Electronically signed by: Marisol Leon M.D. 09/30/22 20:26 PM
[2022-09-30] MEDS ORDERED: METOPROLOL SUCC 50MG EXT REL TAB PO STA (21:25)
[2022-09-30 21:29] LABS: Appearance Urine Clear (Clear); Bacteria Urine Automated Negative (Negative); Bilirubin Urine Negative (Negative); Blood Urine Negative (Negative); Cast Urine Automated 0 /lpf (0-5); Color Urine Yellow; Glucose Urine UA Negative (Negative); Ketones Urine Negative (Negative); Leukocyte Esterase Urine Trace (Negative); Nitrite Urine Negative (Negative); Protein Urine Trace (Negative); RBC Urine Automated 0-4 /hpf (0-4); Specific Gravity Urine 1.011 (1.000-1.030); Urobilinogen Urine Negative (Negative)
[2022-09-30] MEDS ORDERED: MELATONIN 3 MG TAB PO ONE (21:30)
[2022-09-30] MEDS ORDERED: SERTRALINE HCL 50 MG TABLET PO ONE (21:30)
--- NOTE | 2022-09-30 21:30 | History & Physical Report ---
Date of Service September 30, 2022 Assessment & Plan (1) Ambulatory dysfunction: (2) Atrial fibrillation: (3) Chronic kidney disease, stage IV (severe): (4) Depression: Plan Ambulatory dysfunction - 87yo female presenting from home with frequent falls. T12 fracture present, unsure if acute. Patient is not complaining of back pain. No point tenderness on exam -Fall precautions -PT/OT evaluation -Patient lives at home alone - prefers to return home if able -Tylenol PRN pain -Calcitonin daily Atrial fibrillation - HR presently 112 bpm. Received Metoprolol 50mg po at 21:48 -Continue Metoprolol XL 50mg po BID -Continue Diltiazem CD 180mg po daily -Monitor CKD IV - BUN and Cr near baseline -Monitor renal function -Avoid nephrotoxic agents -Renal dosing where needed Depression - chronic, stable -Continue Sertraline History of Present Illness Chief Complaint: frequent falls Primary Care Provider: Patti James MD Mishel Truong is a pleasant 87 yo female presenting from home with frequent falls. Patient lives alone. She fell on 09/30/22 around 02:00 -she was able to get up at that time. She fell again later in the evening as she was trying to get up from a chair in her kitchen. She fell and struck her left face and ribs on the linoleum floor. She denies LOC. She has pleuritic pain in her left ribs otherwise no complaints. Patient denies fever, chills, MUÑOZ, visual changes, neck pain. Denies chest pain, palpitations, abdominal pain, cough, SOB, nausea, vomiting, diarrhea or constipation. No additional complaints at this time. Patient lives alone. In the ER she is afebrile, tachycardic and mildly hypertensive. NAD Allergies Allergy/AdvReac Type Severity Reaction Status Date / Time Iodinated Contrast Media Allergy Severe Difficulty Verified 06/08/22 10:47 Breathing, Severe Hives cephalexin Allergy Unknown Unknown Verified 06/08/22 10:47 diphenhydramine Allergy Unknown DOES NOT Verified 06/08/22 10:47 REMEMBER mushroom Allergy Unknown Unknown Verified 06/08/22 10:47 potassium chloride Allergy Unknown unknown Verified 06/08/22 10:47 Sulfa (Sulfonamide Allergy Unknown Unknown Verified 06/08/22 10:47 Antibiotics) Home Medications Medication Instructions Recorded Confirmed Type allopurinol 100 mg tablet 100 mg PO QAM 06/20/19 09/30/22 History multivit with 1 tab PO QAM 06/20/19 09/30/22 History kkxzrcal-arip-SE-lutein 8 mg iron-400 mcg-300 mcg tablet (Centrum Silver Women) nitroglycerin 0.4 mg sublingual 0.4 mg sublingual DIRECTED PRN 06/20/19 09/30/22 History tablet (Nitrostat) Chest Pain omeprazole 20 mg capsule,delayed 20 mg PO QAM 06/20/19 09/30/22 History release vit C 250 mg-vit E 90 mg-zinc 40 1 tab PO BID 06/20/19 09/30/22 History mg-copper 1 [id number]-lkkakh capsule (PreserVision AREDS-2) sertraline 25 mg tablet 25 mg PO HS 10/06/19 09/30/22 History diclofenac sodium 1 % topical gel 4 g EXT Q6 PRN pain #100 grams 07/31/21 09/30/22 Rx (Voltaren Arthritis Pain) melatonin 3 mg tablet 3 mg PO HS #30 tabs 07/31/21 09/30/22 Rx metoprolol succinate 50 mg 50 mg PO BID 05/09/22 09/30/22 History tablet,extended release 24 hr calcitonin (salmon) 200 1 spray NA DAILY #3.7 mL 05/29/22 09/30/22 Rx unit/actuation nasal spray cholecalciferol (vitamin D3) 25 1,000 unit PO QAM #30 caps 05/29/22 09/30/22 Rx mcg (1,000 unit) capsule diltiazem HCl 180 mg 180 mg PO QAM #30 caps 05/29/22 09/30/22 Rx capsule,extended release 24 hr lorazepam 0.5 mg tablet 0.5 mg PO HS 3 days #3 tabs 05/29/22 09/30/22 Rx polyethylene glycol 3350 17 gram 17 g PO BID #60 ea 05/29/22 09/30/22 Rx oral powder packet (Miralax) docusate sodium 100 mg capsule 100 mg PO DAILY 06/08/22 09/30/22 History (Colace) acetaminophen 500 mg tablet 1,000 mg PO TID PRN Pain 09/30/22 09/30/22 History (Tylenol Extra Strength) furosemide 20 mg tablet 20 mg PO 2XWK 09/30/22 09/30/22 History Past Med/Surg History Medical History Abnormal stress test Acute on chronic systolic (congestive) heart failure Ambulatory dysfunction Atrial fibrillation (04/24/13) Bilateral leg edema Chronic kidney disease, stage IV (severe) Closed fracture of right distal fibula Depression Disc displacement, 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) Dizziness DJD (degenerative joint disease) DVT prophylaxis Fall GI bleed Gouty arthritis Hemarthrosis Hip hematoma, left Left knee DJD Osteoarthritis Pacemaker Right rib fracture Systolic CHF, chronic Troponin level elevated Weakness Surgical History H/O: hysterectomy (03/28/12) S/P debridement (05/19/22) Sharp Debridement of Left Lower Extremity Wound ( full thickness, greater than 200 sq cm), Evacuation of Hematoma(Left) - Jr Cristina DO Family History Other Family history non-contributory Social History Smoking Status: Never smoker Do You Dip or Chew Tobacco: No; Hx Alcohol Use: No Hx Substance Use: No Preferred Language: [place] Communication Ability: Effective Revenue Stamp Cutter Required: No Beliefs That Will Affect Care: None marital status: / Current Living Situation: Alone Current Living Situation Comment: 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 occupational status: 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 Other Information That Helps Us Care for You: No Feels Safe at Home: No Is there a partner from a previous relationship who is making you feel unsafe now?: No Any Concerns about Your Family Situation: No Would You Like to Speak to Someone About Your Situation: Yes (pt states she needs more help at home to feel safe) Safety Concerns: Afraid for Self Diet: regular caffeine: No Seatbelt Use: always Do you think of yourself as: straight/heterosexual Gender Identity: Female Assistive Devices: Cane, Glasses and Walker Review of Systems Review of Systems: All systems reviewed & are unremarkable except as noted in HPI & below Physical Exam Physical Exam: General: patient resting comfortably, NAD, non-toxic in appearance, AA&O x 4 Skin: warm, dry, intact HEENT: PERRL, EOMI, bruise present on left cheek, anicteric sclera, conjunctiva without injection, external ear normal to inspection and nontender, nares patent, moist mucus membranes, dentition intact, no oropharyngeal lesions, neck supple, trachea midline, no LAD, no thyromegaly, no JVD Heart: +S1/S2, irregularly irregular, tachycardic, 4/6 JAMAAL across precordium Lungs: equal air entry bilaterally, no rales/rhonchi/wheezes, no crepitus, normal chest wall mechanics Abd: +BS, soft, NT/ND, no masses/organomegaly/ascites, colostomy bag in place Ext: warm, 2+ pulses in UE/LE bilaterally, no clubbing/cyanosis, + non-pitting edema of bilateral LE, bruise on left knee Neuro: nonfocal, patient AA&O x 4, speech intact, no facial droop, moving all extremities on command with equal strength 5/5 Results & Data Results & Data Vital Signs (Past 12 Hours) Vital Signs Temp Pulse Pulse Resp BP BP Pulse Ox 09/30/22 20:30 101 H 18 184/121 H 98 09/30/22 18:43 108 H 09/30/22 18:49 106 H 17 94 09/30/22 18:49 36.7 C 106 H 17 158/121 H 94 09/30/22 18:49 36.7 C 106 H 17 158/121 H 94 O2 Del Method 09/30/22 20:30 Room Air 09/30/22 18:43 09/30/22 18:49 Room Air 09/30/22 18:49 Room Air 09/30/22 18:49 Room Air Laboratory Results Laboratory Results WBC 8.78 K/ul (4.8-10.8) 09/30/22 18:49 RBC 3.69 M/uL (4.20-5.40) L 09/30/22 18:49 Hgb 9.5 g/dl (12.0-16.0) L 09/30/22 18:49 Hct 29.8 % (37.0-47.0) L 09/30/22 18:49 MCV 80.8 fL (80.0-100.0) 09/30/22 18:49 MCH 25.7 pg (25.0-34.0) 09/30/22 18:49 MCHC 31.9 g/dL (32.0-36.0) L 09/30/22 18:49 RDW Std Deviation 51.2 fL (36.4-46.3) H 09/30/22 18:49 RDW Coeff of Thee 17.6 % (11.5-14.5) H 09/30/22 18:49 Plt Count 282 K/uL (130-400) 09/30/22 18:49 MPV 10.0 fL (9.4-12.4) 09/30/22 18:49 Immature Gran % (Auto) 0.9 % 09/30/22 18:49 Neut % (Auto) 71.9 % 09/30/22 18:49 Lymph % (Auto) 7.3 % 09/30/22 18:49 [place] % (Auto) 15.9 % 09/30/22 18:49 Eos % (Auto) 3.4 % 09/30/22 18:49 Baso % (Auto) 0.6 % 09/30/22 18:49 Neut # (Auto) 6.31 K/uL (1.40-6.50) 09/30/22 18:49 Lymph # (Auto) 0.64 K/uL (1.2-3.4) L 09/30/22 18:49 [place] # (Auto) 1.40 K/uL (0.11-0.59) H 09/30/22 18:49 Eos # (Auto) 0.30 K/uL (0-0.50) 09/30/22 18:49 Baso # (Auto) 0.05 K/uL (0-0.2) 09/30/22 18:49 Immature Gran # (Auto) 0.08 K/uL (0.01-0.20) 09/30/22 18:49 PT 12.7 Seconds (9.0-12.0) H 09/30/22 18:49 INR 1.2 (0.9-1.1) H 09/30/22 18:49 Sodium 138 mmol/L (136-145) 09/30/22 18:49 Potassium 4.2 mmol/L (3.5-5.1) 09/30/22 18:49 Chloride 103 mmol/L (98-107) 09/30/22 18:49 Carbon Dioxide 24 mmol/L (21-32) 09/30/22 18:49 Anion Gap 11 (3-11) 09/30/22 18:49 BUN 35 mg/dl (6-23) H 09/30/22 18:49 Creatinine 1.54 mg/dl (0.6-1.2) H 09/30/22 18:49 Est Cr Clr Drug Dosing 24.6 ml/min 09/30/22 18:49 Est GFR ( Amer) 34.3 ml/min 09/30/22 18:49 Est GFR (Non-Af Amer) 29.6 ml/min 09/30/22 18:49 BUN/Creatinine Ratio 22.7 (10-20) H 09/30/22 18:49 Glucose 123 mg/dl (70-99(Fasting)) H 09/30/22 18:49 Calcium 9.2 mg/dl (8.6-10.3) 09/30/22 18:49 Total Bilirubin 0.6 mg/dl (0.2-1.0) 09/30/22 18:49 AST 19 U/L (13-39) 09/30/22 18:49 ALT 12 U/L (7-52) 09/30/22 18:49 Alkaline Phosphatase 133 U/L (34-104) H 09/30/22 18:49 Total Protein 7.5 gm/dl (6.0-8.3) 09/30/22 18:49 Albumin 3.8 gm/dl (3.4-5.0) 09/30/22 18:49 Globulin 3.7 gm/dl (2.5-4.0) 09/30/22 18:49 Albumin/Globulin Ratio 1.0 (0.9-2) 09/30/22 18:49 Urine Color Yellow 09/30/22 21:00 Urine Appearance Clear (Clear) 09/30/22 21:00 Urine pH 6.0 (4.5-7.5) 09/30/22 21:00 Ur Specific [place] 1.011 (1.000-1.030) 09/30/22 21:00 Urine Protein Trace (Negative) H 09/30/22 21:00 Urine Glucose (UA) Negative (Negative) 09/30/22 21:00 Urine Ketones Negative (Negative) 09/30/22 21:00 Urine Blood Negative (Negative) 09/30/22 21:00 Urine Nitrite Negative (Negative) 09/30/22 21:00 Urine Bilirubin Negative (Negative) 09/30/22 21:00 Urine Urobilinogen Negative (Negative) 09/30/22 21:00 Ur Leukocyte Esterase Trace (Negative) H 09/30/22 21:00 Urine WBC (Auto) 10-30 /hpf (0-5) H 09/30/22 21:00 Urine RBC (Auto) 0-4 /hpf (0-4) 09/30/22 21:00 U Hyaline Cast (Auto) 0 /lpf (0-5) 09/30/22 21:00 U Epithel Cells (Auto) 5-10 /lpf (0-5) H 09/30/22 21:00 Urine Bacteria (Auto) Negative (Negative) 09/30/22 21:00 SARS-CoV-2, RNA, NAAT NEGATIVE (NEGATIVE) 09/30/22 20:[address] 09/30/22 18:31 Exam(s): CT C SPINE EXAM: CT Cervical Spine Without Intravenous Contrast CLINICAL HISTORY: Reason for exam: Trauma. TECHNIQUE: Axial computed tomography images of the cervical spine without intravenous contrast. CTDI is 20.29 mGy and DLP is 604.5 mGy-cm. Automated exposure control was utilized for the study. A dose lowering technique was utilized adhering to the principles of ALARA. Mild motion and dental metal artifact. COMPARISON: CT cervical spine 05/16/21. FINDINGS: Vertebrae: Straightening of the normal cervical lordosis, nonspecific, may relate to patient positioning, muscle spasm and/or degenerative change.. No acute fracture. Discs/spinal canal/neural foramina: Moderate degenerative disc and facet disease, stable. Soft tissues: Mild interstitial and airspace prominence in the lung apices, see separately dictated chest CT. IMPRESSION: 1. Stable moderate degenerative change. 2. No fracture or acute bony abnormality. Electronically signed by: Marisol Leon M.D. 09/30/22 20:[address] 09/30/22 18:31 Exam(s): CT FACIAL Without Contrast EXAM: CT Maxillofacial Without Intravenous Contrast CLINICAL HISTORY: Reason for exam: Trauma. TECHNIQUE: Axial computed tomography images of the face without intravenous contrast. CTDI is 30.34 mGy and DLP is 1313.29 mGy-cm. Automated exposure control was utilized for the study. A dose lowering technique was utilized adhering to the principles of ALARA. COMPARISON: No relevant prior studies available. FINDINGS: Bones/joints: No acute fracture. Soft tissues: Unremarkable. Orbits: Unremarkable. No globe injury, retro-orbital hemorrhage or proptosis. Sinuses: Unremarkable. No air-fluid levels. IMPRESSION: 1. No nasal bone, orbital wall or facial fracture. Electronically signed by: Marisol Leon M.D. 09/30/22 20:[address] 09/30/22 18:31 Exam(s): CT HEAD Without Contrast EXAM: CT Head Without Intravenous Contrast CLINICAL HISTORY: Reason for exam: Trauma. TECHNIQUE: Axial computed tomography images of the head/brain without intravenous contrast. CTDI is 20.3 mGy and DLP is 609 mGy-cm. Automated exposure control was utilized for the study. A dose lowering technique was utilized adhering to the principles of ALARA. COMPARISON: None. FINDINGS: Brain: No mass effect or acute infarct. No acute hemorrhage. Mild/moderate atrophy and chronic, nonspecific white matter disease. Ventricles: No hydrocephalus or midline shift. Bones/joints: No skull fracture. Soft tissues: No scalp hematoma. Sinuses: Clear. Mastoid air cells: No mastoid effusion. IMPRESSION: 1. Mild to moderate age-related findings. 2. No skull fracture, acute bleed, or acute intracranial abnormality. Electronically signed by: Marisol Leon M.D. 09/30/22 20:03 PM Abdomen/Pelvis CT 09/30/22 18:32 Exam(s): CT ABDOMEN + PELVIS Without Contrast EXAM: CT Abdomen and Pelvis Without Intravenous Contrast CLINICAL HISTORY: Reason for exam: Fall, L flank pain and rib pain. TECHNIQUE: Axial computed tomography images of the abdomen and pelvis without intravenous contrast. CTDI is 26.96 mGy and DLP is 617.1 mGy-cm. Automated exposure control was utilized for the study. A dose lowering technique was utilized adhering to the principles of ALARA. COMPARISON: CT abdomen pelvis 02/08/19 FINDINGS: Liver: No injury. Gallbladder and bile ducts: Stable cholelithiasis. No ductal dilation. Pancreas: No ductal dilation. Spleen: No laceration. Adrenals: Unremarkable. No mass. Kidneys and ureters: No injury. Stomach and bowel: No obstruction. Intraperitoneal space: Mild ascites around the spleen, and predominantly within peristomal hernia. No free air or significant fluid. Bones/joints: New, moderate, biconcave T12 compression fracture, presumed acute. No significant retropulsion or paraspinous hematoma. Severe degenerative disc disease in the visualized spine with osteoporosis. No pelvic or femur fracture. Soft tissues: Peristomal hernia again seen, however, now there is a large amount of fluid within the hernia sac; no bowel obstruction. Fat- containing umbilical hernia is stable, though now contains a mild amount of fluid. Vasculature: Stable severe ectasia and moderate atherosclerosis. No abdominal aortic aneurysm. Lymph nodes: No enlarged lymph nodes. Bladder: No injury. Reproductive: Unremarkable as visualized. IMPRESSION: 1. T12 compression fracture, age indeterminate, may be acute. Correlate clinically, and if necessary with MRI thoracic spine. 2. Mild ascites that extends into both peristomal and umbilical hernias. No small bowel obstruction. 3. Incidental cholelithiasis. 4. No obvious parenchymal laceration or hemoperitoneum. Electronically signed by: Marisol Leon M.D. 09/30/22 20:[address] 09/30/22 18:32 Exam(s): CT CHEST Without Contrast EXAM: CT Chest Without Intravenous Contrast CLINICAL HISTORY: Reason for exam: Trauma, L sided rib pain. TECHNIQUE: Axial computed tomography images of the chest without intravenous contrast. CTDI is 26.96 mGy and DLP is 617.1 mGy-cm. Automated exposure control was utilized for the study. A dose lowering technique was utilized adhering to the principles of ALARA. COMPARISON: Chest x-ray 11/19/20, and CT abdomen pelvis 02/08/19. FINDINGS: Lungs: Vascular and interstitial prominence with subtle airspace disease bilaterally, nonspecific, could reflect early CHF and pulmonary edema; mild pneumonia not excluded. No consolidation. Pulmonary arteries: No engorgement. Aorta: No thoracic aortic aneurysm. Pleural space: Trace, bilateral dependent pleural thickening or mild pleural effusion. No pneumothorax. Heart: Moderate to severe cardiomegaly and pacemaker. No significant pericardial effusion. Bones/joints: Moderate biconcave T12 compression fracture, age indeterminate, presumed acute given history, and new compared to CT abdomen pelvis January 2019. No sternal, scapular, or displaced rib fracture. Soft tissues: No significant paraspinous hematoma at T12. Lymph nodes: Nonspecific, nonenlarged mediastinal nodes. No enlarged lymph nodes. IMPRESSION: 1. Biconcave T12 compression fracture, age indeterminate, presumed acute. 2. Cardiomegaly, vascular prominence, mild pulmonary infiltrates and effusions are nonspecific, cannot rule out CHF with pulmonary edema and/or pneumonia. Electronically signed by: Marisol Leon M.D. 09/30/22 20:24 PM PG Care Time/CCT Total # of Minutes Spent Total Time Spent with Patient: Total time spent is greater than 50% in coordination of care (as documented) at patient's floor/unit and/or counseling patient: Coding Level of Care Code 57055 INT INP/OBS CARE 2/55MIN Diagnoses Ambulatory dysfunction R26.2 Atrial fibrillation I48.91 Atrial fibrillation type: unspecified Chronic kidney disease, stage IV (severe) N18.4 Depression F32.A (2) Atrial fibrillation Atrial fibrillation type: unspecified Qualified Code(s): I48.91 - Unspecified atrial fibrillation
[2022-10-01] MEDS ORDERED: FUROSEMIDE 20 MG TAB PO PRN (00:21)
[2022-10-01] MEDS ORDERED: FAMOTIDINE 20 MG TAB PO ONE (00:21)
[2022-10-01] MEDS ORDERED: ONDANSETRON INJ 2 MG/ML 2 ML VIAL IV PRN (00:21)
[2022-10-01] MEDS ORDERED: MELATONIN 3 MG TAB PO ONE (00:24)
[2022-10-01] MEDS: ACETAMINOPHEN 500 MG TAB PO SCH ×3 (05:32→21:26)
[2022-10-01] MEDS: allopurinoL 100 MG TAB PO SCH (08:05)
[2022-10-01] MEDS: METOPROLOL SUCC 50MG EXT REL TAB PO SCH ×2 (08:05→21:26)
[2022-10-01] MEDS: DOCUSATE SODIUM 100 MG CAP PO SCH (08:05)
[2022-10-01] MEDS: dilTIAZem HCL 180 MG CAPCR PO SCH (08:05)
[2022-10-01] MEDS: CALCITONIN SALMON NA 200 IU/AC 3.7 ML BTL SCH (08:07)
[2022-10-01] MEDS: POLYETHYLENE (MIRALAX) 17 GM PACK PO SCH ×2 (08:07→21:21)
[2022-10-01 08:32] LABS: Hemoglobin 8.9 g/dl (12.0-16.0); Mean Corpuscular Hemoglobin 25.7 pg (25.0-34.0); Mean Platelet Volume 10.2 fL (9.4-12.4); Platelet Count 252 K/uL (130-400); RDW Coefficient of Variation 17.7 % (11.5-14.5); RDW Standard Deviation 50.4 fL (36.4-46.3); Red Blood Count 3.46 M/uL (4.20-5.40); White Blood Count 7.46 K/ul (4.8-10.8)
[2022-10-01 08:38] LABS: BUN Creatinine Ratio 22.3 (10-20); Calcium 8.8 mg/dl (8.6-10.3); Creatinine Clr Calc Pharmacy 26.6 ml/min; Est GFR (African American) 38.8 ml/min; Est GFR (Non-African American) 33.5 ml/min; Potassium 3.9 mmol/L (3.5-5.1)
--- NOTE | 2022-10-01 12:54 | Hospitalist Progress Note ---
Date of Service October 01, 2022 Assessment & Plan (1) Ambulatory dysfunction: Plan: Continue OT and PT treatment. Physical therapy has recommended IPR placement at discharge (2) Atrial fibrillation: Plan: Chronic. Stable. Continue current medical management. She is not a candidate for systemic anticoagulation due to frequent falls (3) Chronic kidney disease, stage IV (severe): Plan: Stable. Monitor intake and output. Serial labs (4) Depression: Plan: Stable. Continue current medical management (5) Compression fracture of T12 vertebra: Plan: Probably chronic. No acute pain Plan Anticipate the need for IPR placement at discharge . Admission and Anticipated Discharge Date Admission Date: September 30, 2022 Subjective Alert and oriented. No acute distress. Physical therapy has recommended IPR placement. OT assessment pending. CK is within normal limits. Hemoglobin is low but stable consistent with chronic anemia. Creatinine 1.4 at baseline. Review of Systems Review of Systems: Constitutional-no fever or chills ENT-no blurred vision, no double vision, no epistaxis, no sore throat Respiratory-no cough, no wheezing, no shortness of breath Cardiac-no palpitations, no chest pain, no syncope GI-no nausea, vomiting, diarrhea, melena, hematochezia -no urinary retention, no urinary incontinence, no dysuria, no hematuria Musculoskeletal-no joint pain, no muscle tenderness Skin-no bruising, no rashes, no pruritus Neuro-no isolated weakness, no paresthesia, no weakness Psych-no depression, no anxiety Physical Exam Physical Exam: General-alert and oriented x3, no fevers, no chills HEENT-head atraumatic and normocephalic, pupils equal and reactive to light, extraocular muscles intact Neck-no lymphadenopathy or thyromegaly, trachea midline Chest-clear to auscultation percussion. No rales wheezing or rhonchi Cardiac-regular rate and rhythm, normal S1 and S2 Abdomen-normal bowel sounds, nontender, no hepatosplenomegaly Extremities-no cyanosis, clubbing, or edema Neuro-cranial nerves II through XII intact, motor and sensory function within normal limits, strength symmetrical with generalized weakness consistent with age, no focal deficits Psych-normal affect, normal mood Results & Data Results & Data Vital Signs (Past 12 Hours) Vital Signs Temp Pulse Pulse Resp BP BP Pulse Ox 10/01/22 11:03 36.6 C 106 H 20 154/78 H 94 10/01/22 07:28 36.8 C 97 H 18 175/95 H 96 10/01/22 07:28 86 10/01/22 02:42 36.6 C 112 H 18 150/91 H 98 O2 Del Method 10/01/22 11:03 Room Air 10/01/22 07:28 Room Air 10/01/22 07:28 10/01/22 02:42 Room Air Laboratory Results 10/01/22 07:44 10/01/22 07:44 PG Care Time/CCT Total # of Minutes Spent Total Time Spent with Patient: Total time spent is greater than 50% in coordination of care (as documented) at patient's floor/unit and/or counseling patient: Coding Level of Care Code 06386 SUB INP/OBS CARE 3/50MIN Diagnoses Ambulatory dysfunction R26.2 Atrial fibrillation I48.91 Atrial fibrillation type: unspecified Chronic kidney disease, stage IV (severe) N18.4 Depression F32.A Compression fracture of T12 vertebra S22.080A (2) Atrial fibrillation Atrial fibrillation type: unspecified Qualified Code(s): I48.91 - Unspecified atrial fibrillation
--- NOTE | 2022-10-01 18:59 | Electrocardiogram Report ---
Test Reason : Blood Pressure : / mmHG Vent. Rate : 107 BPM Atrial Rate : 000 BPM P-R Int : 000 ms QRS Dur : 122 ms QT Int : 370 ms P-R-T Axes : 000 -59 098 degrees QTc Int : 493 ms Atrial fibrillation with rapid ventricular response with occasional ventricular-paced complexes Left axis deviation Right bundle branch block Left ventricular hypertrophy with QRS widening Inferior infarct , age undetermined Poor R wave progression, consider anterior DC vs. lead placement vs. LVH Abnormal ECG When compared with ECG of 13-MAY-2022 19:19, Electronic ventricular pacemaker has replaced Atrial fibrillation Confirmed by Gelacio Duke ([id number]) on 10/01/2022 6:58:35 PM Referred By: REFERRED SELF Confirmed By:John Duke
[2022-10-01] MEDS ORDERED: MELATONIN 3 MG TAB PO SCH (21:00)
[2022-10-01] MEDS ORDERED: LORazepam 0.5 MG TAB PO SCH (21:00)
[2022-10-01] MEDS ORDERED: SERTRALINE HCL 50 MG TABLET PO SCH (21:00)
[2022-10-02] MEDS: ACETAMINOPHEN 500 MG TAB PO SCH ×2 (05:38→13:23)
[2022-10-02 07:09] LABS: Basophils # (auto) 0.05 K/uL (0-0.2); Basophils % (auto) 0.8 %; Eosinophils # (auto) 0.42 K/uL (0-0.50); Eosinophils % (auto) 6.7 %; Hematocrit (blood only) 25.4 % (37.0-47.0); Hemoglobin 8.3 g/dl (12.0-16.0); Immature Granulocytes # (auto) 0.05 K/uL (0.01-0.20); Immature Granulocytes % (auto) 0.8 %; Lymphocytes # (auto) 0.57 K/uL (1.2-3.4); Mean Corpuscular Hemoglobin 25.9 pg (25.0-34.0); Mean Corpuscular Hgb Conc 32.7 g/dL (32.0-36.0); Mean Corpuscular Volume 79.4 fL (80.0-100.0); Mean Platelet Volume 9.9 fL (9.4-12.4); Monocytes # (auto) 1.16 K/uL (0.11-0.59); Monocytes % (auto) 18.4 %; Neutrophils # (auto) 4.05 K/uL (1.40-6.50); Neutrophils % (auto) 64.3 %; Platelet Count 234 K/uL (130-400); RDW Coefficient of Variation 17.7 % (11.5-14.5); RDW Standard Deviation 51.2 fL (36.4-46.3)
[2022-10-02 07:35] LABS: BUN Creatinine Ratio 23.8 (10-20); Calcium 8.5 mg/dl (8.6-10.3); Creatinine Clr Calc Pharmacy 25.8 ml/min; Est GFR (African American) 37.5 ml/min; Est GFR (Non-African American) 32.4 ml/min; Potassium 3.8 mmol/L (3.5-5.1)
[2022-10-02] MEDS: allopurinoL 100 MG TAB PO SCH (09:11)
[2022-10-02] MEDS: dilTIAZem HCL 180 MG CAPCR PO SCH (09:12)
[2022-10-02] MEDS: CALCITONIN SALMON NA 200 IU/AC 3.7 ML BTL SCH (09:12)
[2022-10-02] MEDS: DOCUSATE SODIUM 100 MG CAP PO SCH (09:12)
[2022-10-02] MEDS: POLYETHYLENE (MIRALAX) 17 GM PACK PO SCH (09:13)
[2022-10-02] MEDS: METOPROLOL SUCC 50MG EXT REL TAB PO SCH (09:13)
--- NOTE | 2022-10-02 12:09 | Discharge Summary ---
Date of Service October 02, 2022 Admission HPI Per Admitting Provider Mishel Truong is a pleasant 87 yo female presenting from home with frequent falls. Patient lives alone. She fell on 09/30/22 around 02:00 -she was able to get up at that time. She fell again later in the evening as she was trying to get up from a chair in her kitchen. She fell and struck her left face and ribs on the linoleum floor. She denies LOC. She has pleuritic pain in her left ribs otherwise no complaints. Patient denies fever, chills, MUÑOZ, visual changes, neck pain. Denies chest pain, palpitations, abdominal pain, cough, SOB, nausea, vomiting, diarrhea or constipation. No additional complaints at this time. Patient lives alone. In the ER she is afebrile, tachycardic and mildly hypertensive. NAD Principal Diagnosis Ambulatory dysfunction, frequent falls Discharge Exam General-alert and oriented x3, no fevers, no chills HEENT-head atraumatic and normocephalic, pupils equal and reactive to light, extraocular muscles intact Neck-no lymphadenopathy or thyromegaly, trachea midline Chest-clear to auscultation percussion. No rales wheezing or rhonchi Cardiac-regular rate and rhythm, normal S1 and S2 Abdomen-normal bowel sounds, nontender, no hepatosplenomegaly Extremities-no cyanosis, clubbing, or edema Neuro-cranial nerves II through XII intact, motor and sensory function within normal limits, strength symmetrical with generalized weakness consistent with age, no focal deficits Psych-normal affect, normal mood Discharge Data Allergies Allergy/AdvReac Type Severity Reaction Status Date / Time Iodinated Contrast Media Allergy Severe Difficulty Verified 06/08/22 10:47 Breathing, Severe Hives cephalexin Allergy Unknown Unknown Verified 06/08/22 10:47 diphenhydramine Allergy Unknown DOES NOT Verified 06/08/22 10:47 REMEMBER mushroom Allergy Unknown Unknown Verified 06/08/22 10:47 potassium chloride Allergy Unknown unknown Verified 06/08/22 10:47 Sulfa (Sulfonamide Allergy Unknown Unknown Verified 06/08/22 10:47 Antibiotics) Consultations 09/30/22 20:54 ED Decision to Admit Stat Ordered Studies 09/30/22 18:31 CT cervical spine wo con Stat CT facial bones wo con Stat CT head/brain wo con Stat 09/30/22 18:32 CT abd pelvis wo con Stat CT chest diagnostic wo con Stat Hospital Course (1) Ambulatory dysfunction: Continue OT and PT treatment while hospitalized. She will continue with physical therapy as an outpatient (2) Atrial fibrillation: Chronic. Stable. Continue current medical management. She is not a candidate for systemic anticoagulation due to frequent falls (3) Chronic kidney disease, stage IV (severe): Stable. Monitor intake and output. Serial labs (4) Depression: Stable. Continue current medical management (5) Compression fracture of T12 vertebra: Probably chronic. No acute pain Plan Home today, October 02, with home health services and continued outpatient PT Total Time Total Time Spent Total Time Spent (In Minutes): 40 minutes Discharge Plan Discharge Items Patient Disposition: Home - Home Health Services Reason For Visit: FREQUENT FALLS Discharge Diagnosis: Ambulatory dysfunction, frequent falls Activity: Resume your previous activity Non-emergency contact: Primary Care Provider Call non-emergency contact if: you have any medication questions Follow-up/Referrals: Patti James MD [Primary Care Provider] - 10/12/22 9:05 am (THIS APPOINTMENT WILL BE WITH DR. PERKINS) Diet: Regular and Heart Healthy Addtl Attending Provider Instructions: All medications remain the same Pending Studies at Discharge: No Stand-Alone Forms: [facility] UpDown, Smoking Cessation Medications and DC Order Prescriptions: Continued docusate sodium [Colace] 100 mg capsule 100 mg PO DAILY allopurinol 100 mg tablet 100 mg PO QAM omeprazole 20 mg capsule,delayed release(DR/EC) 20 mg PO QAM Centrum Silver Women 8 mg iron-400 mcg-300 mcg Tablet 1 tab PO QAM PreserVision AREDS-2 [id number] hz-skde-xr-mg Capsule 1 tab PO BID nitroglycerin [Nitrostat] 0.4 mg Tablet, Sublingual 0.4 mg sublingual DIRECTED PRN (Reason: Chest Pain) Rx Instructions: PLACE ONE TABLET UNDER THE TONGUE EVERY 5 MINUTES FOR UP TO 3 DOSES OVER 15 MINUTES IF NEEDED FOR CHEST PAIN sertraline 25 mg tablet 25 mg PO HS melatonin 3 mg Tablet 3 mg PO HS Qty: 30 0RF diclofenac sodium [Voltaren Arthritis Pain] 1 % Gel 4 g EXT Q6 PRN (Reason: pain) Qty: 100 0RF Rx Instructions: to knees or shoulders furosemide 20 mg tablet 20 mg PO 2XWK Rx Instructions: may take as needed for swelling acetaminophen [Tylenol Extra Strength] 500 mg tablet 1,000 mg PO TID PRN (Reason: Pain) metoprolol succinate 50 mg tablet extended release 24 hr 50 mg PO BID diltiazem HCl 180 mg Capsule,Extended Release 24hr 180 mg PO QAM Qty: 30 0RF polyethylene glycol 3350 [Miralax] 17 gram Powder In Packet 17 g PO BID Qty: 60 0RF calcitonin (salmon) 200 unit/actuation [place],Non-Aerosol 1 spray NA DAILY Qty: 3.7 0RF cholecalciferol (vitamin D3) 25 mcg (1,000 unit) Capsule 1,000 unit PO QAM Qty: 30 0RF lorazepam 0.5 mg tablet 0.5 mg PO HS 3 Days Qty: 3 0RF Admission Data Admit Date/Time: 09/30/22 21:30 Attending Provider: Trenton Rogers Admit Provider: Aria Harper Primary Care Provider: Patti James Other Providers: Aria Harper ; [facility],Home Health Coding Level of Care Code 11504 INP/OBS DISCH >30 MIN Diagnoses Ambulatory dysfunction R26.2 Atrial fibrillation I48.91 Atrial fibrillation type: unspecified Chronic kidney disease, stage IV (severe) N18.4 Depression F32.A Compression fracture of T12 vertebra S22.080A
== END 2022-10-02 15:47 | disposition home health service (06) ==
LOC: ED 18:23 → 2N 18:23 → SUATTDRO 21:30 → 2N 23:56

== ENCOUNTER 2022-10-07 03:45 | Inpatient (IN) ==
--- NOTE | 2022-10-07 04:02 | Emergency Department Note ---
Impression & Plan Bilateral edema of lower extremity, Ambulatory dysfunction, Lower extremity pain, Diastolic CHF ED Provider Note ED Provider Note NAME: JERRY LI AGE:87 SEX: Female : 1935 ARRIVES VIA: EMS INFORMANT: Patient ED PROVIDER(s): Angela Kelly DO CHIEF COMPLAINT: Leg swelling, pain HPI: This is an 87-year-old female presents emergency department due to concern for increased leg swelling, leg pain, and difficulty walking. Patient states she has had swelling ever since being admitted recently. Patient states she has been sleeping in a recliner, and was able to get up and use the restroom initially using her walker for ambulation. She states overnight tonight then she woke up and did not feel that she could reliably walk to the bathroom even using her walker so she called 911 as she did not want to fall. Patient does live alone. Patient states she was recently hospitalized following a fall. PAST MEDICAL HISTORY:See Below PAST SURGICAL HISTORY:See Below FAMILY HISTORY:See Below SOCIAL HISTORY:See Below HOME MEDICATIONS:See Below ALLERGIES:See Below VITALS:See Below PHYSICAL EXAMINATION: GENERAL: alert, well appearing, well nourished, no distress, non-toxic EYE EXAM: normal conjunctiva, PERRL and EOM's grossly intact OROPHARYNX: no exudate, no erythema, lips, buccal mucosa, and tongue normal and mucous membranes are moist NECK: supple, no nuchal rigidity, no adenopathy, non-tender LUNGS: Clear to auscultation. Normal chest wall mechanics, no w/r/r, no tachypnea, no increased work of breathing HEART: no murmurs, S1 normal and S2 normal ABDOMEN: abdomen soft, non-tender, normo-active bowel sounds, no masses, no rebound or guarding. BACK: Back is symmetrical on inspection and there is no deformity, no midline tenderness, no CVA tenderness. SKIN: no rashes, petechiae, orbruising UPPER EXTREMITIES: upper extremities are grossly normal. FROM, nml pulses b/l. LOWER EXTREMITIES: 2+ b/l pitting edema. FROM, nml pulses b/l. Scattered ecchymotic areas noted to bilateral feet, contusion noted to left prepatellar region which patient states is from her recent fall. NEURO EXAM: Normal sensorium, cranial nerves II-XII grossly intact, normal speech, no facial droop,nogross weakness of arms, no gross weakness of legs. Gross sensation intact. No ataxia. Vital Signs: reviewed and remarkable Differential Diagnosis: CHF, LOBITO, DVT, lymphedema, immobility, electrolyte abnormality, hypoalbuminemia, medication ADR, as well as others were MEDICAL DECISION MAKING: This is an 87-year-old female presents emergency department due to increased lower extremity edema, difficulty walking, and increased shortness of breath. Patient afebrile and vital signs stable, no hypoxia noted. Labs drawn and sent, IV established, EKG and chest x-ray performed at bedside and interpreted by me and patient monitored on telemetry. Patient with prior history of diastolic CHF and does take Lasix twice a week. Patient states she has been compliant with her medications. Patient with an elevated BNP and appearance of evolving pulmonary edema noted on chest x-ray. No hypoxia noted while in the emergency room, no tachypnea or increased work of breathing. Patient does live alone. Due to concern for evolving CHF, comorbidities, social factors such as living condition and lack of support, ambulatory dysfunction secondary to her lower extremity pain and swelling, the case was discussed with the hospitalist for additional evaluation and management. Consultation(s): [] ER Treatment Provided: See below Diagnostics Interpreted By Me: -ECG: Atrial fibrillation at 95, leftward axis, incomplete right bundle branch block, normal QTc, nonspecific ST/T wave changes; no significant changes compared to September 30, 2022 -Cardiac Monitoring: An order was placed for continuous cardiac monitoring. The monitor shows a rate of 92 with a.fib rhythm. -Laboratory studies: As stated above and show below. -Imaging studies: X-ray Chest: A single view study of the chest was reviewed and was negative for cardiomegaly, focal infiltrate, effusion, or wide mediastinum. 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) Dizziness DJD (degenerative joint disease) DVT prophylaxis Fall GI bleed Gouty arthritis Hemarthrosis Hip hematoma, left Left knee DJD Osteoarthritis Pacemaker Right rib fracture Systolic CHF, chronic Troponin level elevated Weakness Surgical History H/O: hysterectomy (03/28/12) S/P debridement (05/19/22) Sharp Debridement of Left Lower Extremity Wound ( full thickness, greater than 200 sq cm), Evacuation of Hematoma(Left) - Jr Cristina DO Family History Other Family history non-contributory Social History Smoking Status: Never smoker Do You Dip or Chew Tobacco: No; Hx Alcohol Use: No Hx Substance Use: No Preferred Language: [place] Communication Ability: Effective 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 Required: No Beliefs That Will Affect Care: None marital status: / Current Living Situation: Alone Current Living Situation Comment: 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 occupational status: retired Feels Safe at Home: No Is there a partner from a previous relationship who is making you feel unsafe now?: No Diet: regular caffeine: No Seatbelt Use: always Do you think of yourself as: straight/heterosexual Gender Identity: Female Assistive Devices: Walker Allergies Allergies Allergy/AdvReac Type Severity Reaction Status Date / Time Iodinated Contrast Media Allergy Severe Difficulty Verified 06/08/22 10:47 Breathing, Severe Hives cephalexin Allergy Unknown Unknown Verified 06/08/22 10:47 diphenhydramine Allergy Unknown DOES NOT Verified 06/08/22 10:47 REMEMBER mushroom Allergy Unknown Unknown Verified 06/08/22 10:47 potassium chloride Allergy Unknown unknown Verified 06/08/22 10:47 Sulfa (Sulfonamide Allergy Unknown Unknown Verified 06/08/22 10:47 Antibiotics) Home Meds Home Medications Medication Instructions Recorded Confirmed allopurinol 100 mg tablet 100 mg PO QAM 06/20/19 09/30/22 multivit with 1 tab PO QAM 06/20/19 09/30/22 tyfuzgyh-zspu-XS-lutein 8 mg iron-400 mcg-300 mcg tablet (Centrum Silver Women) nitroglycerin 0.4 mg sublingual 0.4 mg sublingual DIRECTED PRN 06/20/19 09/30/22 tablet (Nitrostat) Chest Pain omeprazole 20 mg capsule,delayed 20 mg PO QAM 06/20/19 09/30/22 release vit C 250 mg-vit E 90 mg-zinc 40 1 tab PO BID 06/20/19 09/30/22 mg-copper 1 sa-ktbiyn-vdjwhv capsule (PreserVision AREDS-2) sertraline 25 mg tablet 25 mg PO HS 10/06/19 09/30/22 metoprolol succinate 50 mg 50 mg PO BID 05/09/22 09/30/22 tablet,extended release 24 hr docusate sodium 100 mg capsule 100 mg PO DAILY 06/08/22 09/30/22 (Colace) acetaminophen 500 mg tablet 1,000 mg PO TID PRN Pain 09/30/22 09/30/22 (Tylenol Extra Strength) furosemide 20 mg tablet 20 mg PO 2XWK 09/30/22 09/30/22 Previous Rx's Medication Instructions Recorded diclofenac sodium 1 % topical gel 4 g EXT Q6 PRN pain #100 grams 07/31/21 (Voltaren Arthritis Pain) melatonin 3 mg tablet 3 mg PO HS #30 tabs 07/31/21 calcitonin (salmon) 200 1 spray NA DAILY #3.7 mL 05/29/22 unit/actuation nasal spray cholecalciferol (vitamin D3) 25 1,000 unit PO QAM #30 caps 05/29/22 mcg (1,000 unit) capsule diltiazem HCl 180 mg 180 mg PO QAM #30 caps 05/29/22 capsule,extended release 24 hr lorazepam 0.5 mg tablet 0.5 mg PO HS 3 days #3 tabs 05/29/22 polyethylene glycol 3350 17 gram 17 g PO BID #60 ea 05/29/22 oral powder packet (Miralax) Results & Data (ED) Vital Signs Vital Signs - 24 hr 10/07/22 03:46 10/07/22 03:54 10/07/22 03:52 Temperature 36.8 C Temperature Source Oral Pulse Rate 99 H 103 H 96 H Pulse Rate from SpO2 Sensor Respiratory Rate 20 31 H Respiratory Effort / Characteristics Non-Labored Spontaneous Respiratory Depth Normal Blood Pressure 145/75 H Blood Pressure Mean 98 Pulse Oximetry 96 Oxygen Delivery Method Room Air Sepsis New/Unexplained Change in Mental Status N/A Sepsis Action Taken by Nursing No Action Required 10/07/22 04:00 10/07/22 04:30 10/07/22 05:00 Temperature Temperature Source Pulse Rate 89 90 86 Pulse Rate from SpO2 Sensor 100 H Respiratory Rate 24 21 20 Respiratory Effort / Characteristics Respiratory Depth Blood Pressure 151/102 H 140/88 Blood Pressure Mean 118 105 Pulse Oximetry 95 92 93 Oxygen Delivery Method Sepsis New/Unexplained Change in Mental Status Sepsis Action Taken by Nursing 10/07/22 05:10 10/07/22 05:30 10/07/22 06:00 Temperature Temperature Source Pulse Rate 91 H 94 H 86 Pulse Rate from SpO2 Sensor 90 Respiratory Rate 19 22 15 Respiratory Effort / Characteristics Respiratory Depth Blood Pressure 162/92 H 169/93 H Blood Pressure Mean 115 118 Pulse Oximetry 97 97 96 Oxygen Delivery Method Sepsis New/Unexplained Change in Mental Status Sepsis Action Taken by Nursing 10/07/22 06:30 10/07/22 07:00 Temperature Temperature Source Pulse Rate 84 90 Pulse Rate from SpO2 Sensor 93 H Respiratory Rate 19 20 Respiratory Effort / Characteristics Respiratory Depth Blood Pressure 153/93 H 161/93 H Blood Pressure Mean 113 115 Pulse Oximetry 96 96 Oxygen Delivery Method Sepsis New/Unexplained Change in Mental Status Sepsis Action Taken by Nursing Laboratory Data 10/07/22 04:05 10/07/22 04:05 Lab Results 10/07/22 10/07/22 10/07/22 Range/Units 04:05 04:05 04:05 WBC 7.81 (4.8-10.8) K/ul RBC 3.76 L (4.20-5.40) M/uL Hgb 9.7 L (12.0-16.0) g/dl Hct 30.0 L (37.0-47.0) % MCV 79.8 L (80.0-100.0) fL MCH 25.8 (25.0-34.0) pg MCHC 32.3 (32.0-36.0) g/dL RDW Std Deviation 51.2 H (36.4-46.3) fL RDW Coeff of Thee 17.8 H (11.5-14.5) % Plt Count 268 (130-400) K/uL MPV 9.7 (9.4-12.4) fL Immature Gran % (Auto) 0.6 % Neut % (Auto) 69.8 % Lymph % (Auto) 8.3 % [place] % (Auto) 17.3 % Eos % (Auto) 3.5 % Baso % (Auto) 0.5 % Neut # (Auto) 5.45 (1.40-6.50) K/uL Lymph # (Auto) 0.65 L (1.2-3.4) K/uL [place] # (Auto) 1.35 H (0.11-0.59) K/uL Eos # (Auto) 0.27 (0-0.50) K/uL Baso # (Auto) 0.04 (0-0.2) K/uL Immature Gran # (Auto) 0.05 (0.01-0.20) K/uL Sodium 135 L (136-145) mmol/L Potassium 4.3 (3.5-5.1) mmol/L Chloride 102 (98-107) mmol/L Carbon Dioxide 24 (21-32) mmol/L Anion Gap 9 (3-11) BUN 34 H (6-23) mg/dl Creatinine 1.71 H (0.6-1.2) mg/dl Est Cr Clr Drug Dosing 22.1 ml/min Est GFR ( Amer) 30.2 ml/min Est GFR (Non-Af Amer) 26.1 ml/min BUN/Creatinine Ratio 19.9 (10-20) Glucose 117 H (70-99(Fasting)) mg/dl Calcium 9.1 (8.6-10.3) mg/dl Magnesium 2.0 (1.7-2.4) mg/dl Total Bilirubin 0.7 (0.2-1.0) mg/dl AST 18 (13-39) U/L ALT 11 (7-52) U/L Alkaline Phosphatase 127 H (34-104) U/L Troponin I High Sens 14.9 H (0-14) pg/ml B-Natriuretic Peptide 452 H (0-100) pg/ml Total Protein 7.6 (6.0-8.3) gm/dl Albumin 3.9 (3.4-5.0) gm/dl Globulin 3.7 (2.5-4.0) gm/dl Albumin/Globulin Ratio 1.1 (0.9-2) Lipase 24 (11-82) U/L SARS-CoV-2, RNA, NAAT (NEGATIVE) 06/21/23 Range/Units 04:56 WBC (4.8-10.8) K/ul RBC (4.20-5.40) M/uL Hgb (12.0-16.0) g/dl Hct (37.0-47.0) % MCV (80.0-100.0) fL MCH (25.0-34.0) pg MCHC (32.0-36.0) g/dL RDW Std Deviation (36.4-46.3) fL RDW Coeff of Thee (11.5-14.5) % Plt Count (130-400) K/uL MPV (9.4-12.4) fL Immature Gran % (Auto) % Neut % (Auto) % Lymph % (Auto) % [place] % (Auto) % Eos % (Auto) % Baso % (Auto) % Neut # (Auto) (1.40-6.50) K/uL Lymph # (Auto) (1.2-3.4) K/uL [place] # (Auto) (0.11-0.59) K/uL Eos # (Auto) (0-0.50) K/uL Baso # (Auto) (0-0.2) K/uL Immature Gran # (Auto) (0.01-0.20) K/uL Sodium (136-145) mmol/L Potassium (3.5-5.1) mmol/L Chloride (98-107) mmol/L Carbon Dioxide (21-32) mmol/L Anion Gap (3-11) BUN (6-23) mg/dl Creatinine (0.6-1.2) mg/dl Est Cr Clr Drug Dosing ml/min Est GFR ( Amer) ml/min Est GFR (Non-Af Amer) ml/min BUN/Creatinine Ratio (10-20) Glucose (70-99(Fasting)) mg/dl Calcium (8.6-10.3) mg/dl Magnesium (1.7-2.4) mg/dl Total Bilirubin (0.2-1.0) mg/dl AST (13-39) U/L ALT (7-52) U/L Alkaline Phosphatase (34-104) U/L Troponin I High Sens (0-14) pg/ml B-Natriuretic Peptide (0-100) pg/ml Total Protein (6.0-8.3) gm/dl Albumin (3.4-5.0) gm/dl Globulin (2.5-4.0) gm/dl Albumin/Globulin Ratio (0.9-2) Lipase (11-82) U/L SARS-CoV-2, RNA, NAAT NEGATIVE (NEGATIVE) Administered Medications Discontinued Medications Furosemide (Furosemide Inj 20 Mg/2 Ml Vial) 20 mg IV ONE ONE Stop: 10/07/22 04:56 Last Admin: 10/07/22 05:05 Dose: 20 mg Documented By: SUHASW Imaging Data Radiologist's Impression: Chest X-Ray 10/07/22 03:58 XR chest 1V portable CLINICAL HISTORY: Cough. COMPARISON STUDY: Chest radiograph May 16, 2022. Chest CT September 30, 2022. FINDINGS: There is no pneumothorax or pleural effusion. Dual lead left subclavian pacemaker is in place. There are a few possible patchy bilateral airspace opacities. There is no evidence for overt pulmonary edema. Cardiomegaly is unchanged. IMPRESSION: 1. A few possible patchy bilateral airspace opacities which may reflect an infectious process. 2. Cardiomegaly without overt pulmonary edema. ACT 112: Negative or not required by law. Electronically signed by: Mike Zuniga M.D. 10/07/2022 6:48 AM Discharge Plan Visit Data Chief Complaint: Swelling/Edema to Extremity Stated Complaint: BILATERAL LOWER LEG SWELLING, AMBULATORY DYSFUNCTI ED Provider: Angela Kelly Discharge Problem: Bilateral edema of lower extremity, Ambulatory dysfunction, Lower extremity pain, Diastolic CHF Forms Stand Alone Forms: [facility] [employer] Prescriptions Prescriptions: No Action docusate sodium [Colace] 100 mg capsule 100 mg PO DAILY allopurinol 100 mg tablet 100 mg PO QAM omeprazole 20 mg capsule,delayed release(DR/EC) 20 mg PO QAM Centrum Silver Women 8 mg iron-400 mcg-300 mcg Tablet 1 tab PO QAM PreserVision AREDS-2 [id number] iz-kypn-ng-mg Capsule 1 tab PO BID nitroglycerin [Nitrostat] 0.4 mg Tablet, Sublingual 0.4 mg sublingual DIRECTED PRN (Reason: Chest Pain) Rx Instructions: PLACE ONE TABLET UNDER THE TONGUE EVERY 5 MINUTES FOR UP TO 3 DOSES OVER 15 MINUTES IF NEEDED FOR CHEST PAIN sertraline 25 mg tablet 25 mg PO HS melatonin 3 mg Tablet 3 mg PO HS Qty: 30 0RF diclofenac sodium [Voltaren Arthritis Pain] 1 % Gel 4 g EXT Q6 PRN (Reason: pain) Qty: 100 0RF Rx Instructions: to knees or shoulders furosemide 20 mg tablet 20 mg PO 2XWK Rx Instructions: may take as needed for swelling acetaminophen [Tylenol Extra Strength] 500 mg tablet 1,000 mg PO TID PRN (Reason: Pain) metoprolol succinate 50 mg tablet extended release 24 hr 50 mg PO BID diltiazem HCl 180 mg Capsule,Extended Release 24hr 180 mg PO QAM Qty: 30 0RF polyethylene glycol 3350 [Miralax] 17 gram Powder In Packet 17 g PO BID Qty: 60 0RF calcitonin (salmon) 200 unit/actuation [place],Non-Aerosol 1 spray NA DAILY Qty: 3.7 0RF cholecalciferol (vitamin D3) 25 mcg (1,000 unit) Capsule 1,000 unit PO QAM Qty: 30 0RF lorazepam 0.5 mg tablet 0.5 mg PO HS 3 Days Qty: 3 0RF Referrals Referrals: Patti James MD [Primary Care Provider] -
[2022-10-07 04:17] LABS: Basophils # (auto) 0.04 K/uL (0-0.2); Basophils % (auto) 0.5 %; Eosinophils # (auto) 0.27 K/uL (0-0.50); Eosinophils % (auto) 3.5 %; Hemoglobin 9.7 g/dl (12.0-16.0); Immature Granulocytes # (auto) 0.05 K/uL (0.01-0.20); Immature Granulocytes % (auto) 0.6 %; Lymphocytes # (auto) 0.65 K/uL (1.2-3.4); Lymphocytes % (auto) 8.3 %; Mean Corpuscular Hemoglobin 25.8 pg (25.0-34.0); Mean Corpuscular Hgb Conc 32.3 g/dL (32.0-36.0); Mean Corpuscular Volume 79.8 fL (80.0-100.0); Mean Platelet Volume 9.7 fL (9.4-12.4); Monocytes # (auto) 1.35 K/uL (0.11-0.59); Monocytes % (auto) 17.3 %; Neutrophils # (auto) 5.45 K/uL (1.40-6.50); Neutrophils % (auto) 69.8 %; Platelet Count 268 K/uL (130-400); RDW Coefficient of Variation 17.8 % (11.5-14.5); RDW Standard Deviation 51.2 fL (36.4-46.3); Red Blood Count 3.76 M/uL (4.20-5.40); White Blood Count 7.81 K/ul (4.8-10.8)
[2022-10-07 04:37] LABS: Albumin Globulin Ratio 1.1 (0.9-2); Albumin Level 3.9 gm/dl (3.4-5.0); BUN Creatinine Ratio 19.9 (10-20); Bilirubin,Total 0.7 mg/dl (0.2-1.0); Calcium 9.1 mg/dl (8.6-10.3); Creatinine Clr Calc Pharmacy 22.1 ml/min; Est GFR (African American) 30.2 ml/min; Est GFR (Non-African American) 26.1 ml/min; Globulin 3.7 gm/dl (2.5-4.0); Potassium 4.3 mmol/L (3.5-5.1); Total Protein 7.6 gm/dl (6.0-8.3)
[2022-10-07 04:43] LABS: Troponin I High Sensitivity 14.9 pg/ml (0-14)
[2022-10-07] MEDS ORDERED: FUROSEMIDE INJ 20 MG/2 ML VIAL IV ONE (04:55)
--- NOTE | 2022-10-07 05:06 | History & Physical Report ---
Date of Service October 07, 2022 Assessment & Plan (1) Bilateral edema of lower extremity: Plan: 87 yo female with PMHx of afib, frequent falls, CKD stage 5, diastolic CHF, constipation, GERD, anxiety, depression, and gouty arthritis presents with ambulatory dysfunction 2/2 bilateral LE swelling and associated sob. #Bilateral LE edema, chronic #Shortness of breath #Diastolic CHF, chronic -bilateral LE edema worse from baseline with some associated sob on exertion. Saturating well on RA. -CXR pending -echo (05/15): EF 50-55%, grade 3 diastolic dysfunction -home lasix on MWF schedule, compliant. Follows with cardiology. -given IV lasix 20mg in ED. Will need to diuresis cautiously if necessary due to severe CKD. BNP 452. -daily weights, strict I/Os, low Na diet -repeat echo ordered -monitor labs #Ambulatory dysfunction -discharged to home from [facility] 5 days ago for same complaint -cont. home calcitonin -fall precautions -PT/OT ordered, will likely need rehab -would discuss with case management living situation as she lives on her own #Anemia, chronic -Hgb on admission 9.7. MCV 79. Likely multifactorial with CKD and iron deficiency. -repeat iron studies -B12 and folate pending -monitor hgb #CKD, stage 5 -Cr 1.7 on admission, appears near baseline. -consider ZHAO/ARB #Afib #h/o pacemaker -cont. home metoprolol and diltiazem -not on anticoagulation due to h/o frequent falls -pacemaker in place #Constipation -cont. home miralax and colace #GERD -cont. home omeprazole #Anxiety #Depression -cont. home sertraline and ativan #Gouty arthritis -cont. home allopurinol #h/o creation of ostomy bag -ostomy bag intact DVT ppx: OSMANY stockings; consider chemical if hgb stable FEN/GI: HH, low Na Code Status: DNI/DNR Dispo: med tele (2) Ambulatory dysfunction: (3) Anxiety: (4) Depression: (5) History of creation of ostomy: (6) Atrial fibrillation: (7) Frequent falls: (8) Chronic kidney disease, stage IV (severe): (9) Pacemaker: (10) Gouty arthritis: (11) Diastolic CHF: (12) Anemia: History of Present Illness Chief Complaint: LE edema, sob Primary Care Provider: Patti James MD 87 yo female with PMHx of afib, frequent falls, CKD stage 5, diastolic CHF, constipation, GERD, anxiety, depression, and gouty arthritis presents with ambulatory dysfunction 2/2 bilateral LE swelling and associated sob. Patient was recently hospitalized at [facility] for ambulatory dysfunction 5 days ago and discharged to home with plan for outpatient physical therapy. She typically ambulates with a walker. Yesterday, she was sitting down and felt that she would fall even if using her walker due to weakness in her legs. She has chronic LE edema 2/2 CHF and takes lasix MWF schedule. Follows with cardiology. She states her legs are larger than her normal. Attempts to limit salt intake since daughter will bring her microwaveable meals. Some associated shortness of breath on exertion and cough otherwise denies headache, fever, fatigue, chest pain, abd pain, N/V, dysuria, numbness/tingling of extremities. Allergies Allergy/AdvReac Type Severity Reaction Status Date / Time Iodinated Contrast Media Allergy Severe Difficulty Verified 06/08/22 10:47 Breathing, Severe Hives cephalexin Allergy Unknown Unknown Verified 06/08/22 10:47 diphenhydramine Allergy Unknown DOES NOT Verified 06/08/22 10:47 REMEMBER mushroom Allergy Unknown Unknown Verified 06/08/22 10:47 potassium chloride Allergy Unknown unknown Verified 06/08/22 10:47 Sulfa (Sulfonamide Allergy Unknown Unknown Verified 06/08/22 10:47 Antibiotics) Home Medications Medication Instructions Recorded Confirmed Type allopurinol 100 mg tablet 100 mg PO QAM 06/20/19 10/07/22 History multivit with 1 tab PO QAM 06/20/19 10/07/22 History hznyagqk-uwuo-EY-lutein 8 mg iron-400 mcg-300 mcg tablet (Centrum Silver Women) nitroglycerin 0.4 mg sublingual 0.4 mg sublingual DIRECTED PRN 06/20/19 10/07/22 History tablet (Nitrostat) Chest Pain omeprazole 20 mg capsule,delayed 20 mg PO QAM 06/20/19 10/07/22 History release vit C 250 mg-vit E 90 mg-zinc 40 1 tab PO BID 06/20/19 10/07/22 History mg-copper 1 [id number] capsule (PreserVision AREDS-2) sertraline 25 mg tablet 25 mg PO HS 10/06/19 10/07/22 History diclofenac sodium 1 % topical gel 4 g EXT Q6 PRN pain #100 grams 07/31/21 10/07/22 Rx (Voltaren Arthritis Pain) melatonin 3 mg tablet 3 mg PO HS #30 tabs 07/31/21 10/07/22 Rx metoprolol succinate 50 mg 50 mg PO BID 05/09/22 10/07/22 History tablet,extended release 24 hr cholecalciferol (vitamin D3) 25 1,000 unit PO QAM #30 caps 05/29/22 10/07/22 Rx mcg (1,000 unit) capsule diltiazem HCl 180 mg 180 mg PO QAM #30 caps 05/29/22 10/07/22 Rx capsule,extended release 24 hr lorazepam 0.5 mg tablet 0.5 mg PO HS 3 days #3 tabs 05/29/22 10/07/22 Rx docusate sodium 100 mg capsule 100 mg PO DAILY 06/08/22 10/07/22 History (Colace) acetaminophen 500 mg tablet 1,000 mg PO TID PRN Pain 09/30/22 10/07/22 History (Tylenol Extra Strength) furosemide 20 mg tablet 20 mg PO 2XWK 09/30/22 10/07/22 History Past Med/Surg History Medical History Abnormal stress test Acute on chronic systolic (congestive) heart failure Ambulatory dysfunction Atrial fibrillation (04/24/13) Bilateral leg edema Chronic kidney disease, stage IV (severe) Closed fracture of right distal fibula Depression Disc displacement, 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) Dizziness DJD (degenerative joint disease) DVT prophylaxis Fall GI bleed Gouty arthritis Hemarthrosis Hip hematoma, left Left knee DJD Osteoarthritis Pacemaker Right rib fracture Systolic CHF, chronic Troponin level elevated Weakness Surgical History H/O: hysterectomy (03/28/12) S/P debridement (05/19/22) Sharp Debridement of Left Lower Extremity Wound ( full thickness, greater than 200 sq cm), Evacuation of Hematoma(Left) - Jr Cristina DO Family History Other Family history non-contributory Social History Smoking Status: Never smoker Second Hand Exposure: No; Do You Dip or Chew Tobacco: No; Tobacco Cessation Education Requested by Patient: No Hx Alcohol Use: No Hx Substance Use: No Preferred Language: Mozambican Communication Ability: Effective 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 Beliefs That Will Affect Care: None marital status: / Current Living Situation: Alone Current Living Situation Comment: 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 occupational status: retired Other Information That Helps Us Care for You: No Feels Safe at Home: Yes Safety Concerns: Feels Safe At This Time Diet: regular caffeine: No Seatbelt Use: always Do you think of yourself as: straight/heterosexual Gender Identity: Female Assistive Devices: Walker Review of Systems Review of Systems: All systems reviewed & are unremarkable except as noted in HPI & below Physical Exam Physical Exam: Constitutional: in no acute distress, pleasant and normal affect, intact memory. AOx3. Vitals as above. HEENT: No scleral injection or discharge.Moist mucous membranes. Clear oropharynx. Neck: Supple without lymphadenopathy or thyromegaly. Trachea midline. Lungs: Clear to auscultation bilaterally with good effort. Cardiac: Regular rate and rhythm.No murmurs.3+ bilateral LE edema with tenderness. 2+ distal peripheral pulses. Abdomen: Bowel sounds present. +ostomy bag. Soft and nondistended.Mild tenderness LLQ. No guarding or rebound tenderness. No hepatosplenomegaly. MSK: No cyanosis or clubbing. Skin: +venous stasis changes bilateral. Neurologic: no focal deficits Results & Data Results & Data Vital Signs (Past 12 Hours) Vital Signs Temp Pulse Resp BP Pulse Ox O2 Del Method 10/07/22 03:54 103 H 10/07/22 03:46 36.8 C 99 H 20 145/75 H 96 Room Air Laboratory Results Laboratory Results WBC 7.81 K/ul (4.8-10.8) 10/07/22 04:05 RBC 3.76 M/uL (4.20-5.40) L 10/07/22 04:05 Hgb 9.7 g/dl (12.0-16.0) L 10/07/22 04:05 Hct 30.0 % (37.0-47.0) L 10/07/22 04:05 MCV 79.8 fL (80.0-100.0) L 10/07/22 04:05 MCH 25.8 pg (25.0-34.0) 10/07/22 04:05 MCHC 32.3 g/dL (32.0-36.0) 10/07/22 04:05 RDW Std Deviation 51.2 fL (36.4-46.3) H 10/07/22 04:05 RDW Coeff of Thee 17.8 % (11.5-14.5) H 10/07/22 04:05 Plt Count 268 K/uL (130-400) 10/07/22 04:05 MPV 9.7 fL (9.4-12.4) 10/07/22 04:05 Immature Gran % (Auto) 0.6 % 10/07/22 04:05 Neut % (Auto) 69.8 % 10/07/22 04:05 Lymph % (Auto) 8.3 % 10/07/22 04:05 [place] % (Auto) 17.3 % 10/07/22 04:05 Eos % (Auto) 3.5 % 10/07/22 04:05 Baso % (Auto) 0.5 % 10/07/22 04:05 Neut # (Auto) 5.45 K/uL (1.40-6.50) 10/07/22 04:05 Lymph # (Auto) 0.65 K/uL (1.2-3.4) L 10/07/22 04:05 [place] # (Auto) 1.35 K/uL (0.11-0.59) H 10/07/22 04:05 Eos # (Auto) 0.27 K/uL (0-0.50) 10/07/22 04:05 Baso # (Auto) 0.04 K/uL (0-0.2) 10/07/22 04:05 Immature Gran # (Auto) 0.05 K/uL (0.01-0.20) 10/07/22 04:05 Sodium 135 mmol/L (136-145) L 10/07/22 04:05 Potassium 4.3 mmol/L (3.5-5.1) 10/07/22 04:05 Chloride 102 mmol/L (98-107) 10/07/22 04:05 Carbon Dioxide 24 mmol/L (21-32) 10/07/22 04:05 Anion Gap 9 (3-11) 10/07/22 04:05 BUN 34 mg/dl (6-23) H 10/07/22 04:05 Creatinine 1.71 mg/dl (0.6-1.2) H 10/07/22 04:05 Est Cr Clr Drug Dosing 22.1 ml/min 10/07/22 04:05 Est GFR ( Amer) 30.2 ml/min 10/07/22 04:05 Est GFR (Non-Af Amer) 26.1 ml/min 10/07/22 04:05 BUN/Creatinine Ratio 19.9 (10-20) 10/07/22 04:05 Glucose 117 mg/dl (70-99(Fasting)) H 10/07/22 04:05 Calcium 9.1 mg/dl (8.6-10.3) 10/07/22 04:05 Magnesium 2.0 mg/dl (1.7-2.4) 10/07/22 04:05 Total Bilirubin 0.7 mg/dl (0.2-1.0) 10/07/22 04:05 AST 18 U/L (13-39) 10/07/22 04:05 ALT 11 U/L (7-52) 10/07/22 04:05 Alkaline Phosphatase 127 U/L (34-104) H 10/07/22 04:05 Troponin I High Sens 14.9 pg/ml (0-14) H 10/07/22 04:05 B-Natriuretic Peptide 452 pg/ml (0-100) H 10/07/22 04:05 Total Protein 7.6 gm/dl (6.0-8.3) 10/07/22 04:05 Albumin 3.9 gm/dl (3.4-5.0) 10/07/22 04:05 Globulin 3.7 gm/dl (2.5-4.0) 10/07/22 04:05 Albumin/Globulin Ratio 1.1 (0.9-2) 10/07/22 04:05 Lipase 24 U/L (11-82) 06/21/23 04:05 Supervising Physician Co-Signing Physician Notes Attending addendum: I have physically seen this patient, have supervised the medical residents activities, and agree with the H&P unless as otherwise noted. Assessment and Plan: Elevated troponin/diastolic CHF/atrial fibrillation- The patient will be admitted to telemetry for serial cardiac enzymes, serial EKG's, cardiac rhythm monitoring and a 2-D echocardiogram with Dopplers. Continue diltiazem, metoprolol succinate Patient did receive furosemide 20 mg IV from the ED, follow response and determine if further dosing needed Acute kidney injury on CKD- Creatinine 1.71, with base 1.39- Follow serially GERD- Change omeprazole to pantoprazole per formulary interchange Gout- Continue allopurinol Remaining orders and notations as noted Resident Activity Tracking Resident Involvement: Resident Care Provided Care Provided: Adult Hospital Medicine (6) Atrial fibrillation Atrial fibrillation type: unspecified Qualified Code(s): I48.91 - Unspecified atrial fibrillation (12) Anemia Anemia type: unspecified type Qualified Code(s): D64.9 - Anemia, unspecified
--- NOTE | 2022-10-07 06:50 | XRay Report ---
XR chest 1V portable CLINICAL HISTORY: Cough. COMPARISON STUDY: Chest radiograph May 16, 2022. Chest CT September 30, 2022. FINDINGS: There is no pneumothorax or pleural effusion. Dual lead left subclavian pacemaker is in eros ce. There are a few possible patchy bilateral airspace opacities. There is no evidence for overt pulm onary edema. Cardiomegaly is unchanged. IMPRESSION: 1. A few possible patchy bilateral airspace opacities which may reflect an infectious process. 2. Cardiomegaly without overt pulmonary edema. ACT 112: Negative or not required by law. Electronically signed by: Mike Zuniga M.D. 10/07/2022 6:48 AM
[2022-10-07] MEDS ORDERED: NITROGLYCERIN SL 0.4 MG/TAB TAB SL PRN (09:52)
[2022-10-07] MEDS ORDERED: ONDANSETRON 4 MG OD TAB PO PRN (09:52)
[2022-10-07] MEDS ORDERED: ACETAMINOPHEN 325 MG TAB PO PRN (09:52)
[2022-10-07 10:42] LABS: Ferritin 44.8 ng/ml (8-388)
[2022-10-07 10:48] LABS: Vitamin B12 839 pg/ml (180-914)
[2022-10-07] MEDS: METOPROLOL SUCC 50MG EXT REL TAB PO SCH ×2 (11:17→20:39)
[2022-10-07] MEDS: dilTIAZem HCL 180 MG CAPCR PO SCH (11:17)
[2022-10-07] MEDS: allopurinoL 100 MG TAB PO SCH (11:17)
[2022-10-07] MEDS: DOCUSATE SODIUM 100 MG CAP PO SCH (11:17)
[2022-10-07] MEDS: CALCITONIN SALMON NA 200 IU/AC 3.7 ML BTL SCH (11:18)
[2022-10-07] MEDS: POLYETHYLENE (MIRALAX) 17 GM PACK PO SCH ×2 (11:18→20:33)
--- NOTE | 2022-10-07 12:35 | XCELERA ---
[id number] \\[email or web address]_[email or web address]\[id number]}___[id number]
[2022-10-07] MEDS ORDERED: ALBUT/IPRATROP 3MG/0.5MG NEB 3 ML VIAL NEB STA (15:36)
[2022-10-07] MEDS ORDERED: ALBUT/IPRATROP 3MG/0.5MG NEB 3 ML VIAL NEB PRN (15:36)
--- NOTE | 2022-10-07 15:39 | History & Physical Bridge Note ---
Date of Service October 07, 2022 History & Physical Bridge Note I have examined the patient, reviewed the History & Physical and in the interval since the performance of the History & Physical I have noted the following changes of clinical significance: Pt c/o cough productive of sputum. Also wheezing on exam. Feels legs are more swollen than usual and were so heavy she couldn't even get herself into bed at home. Vitals reviewed NAD< AAOx3 sitting in chair RRR no mgr Pulm with diffuse exp wheezes, some rhonchi, and with cough with deep inspiration Ext 2+ pitting edema legs bilat -Despite no fevers or leukocytosis, her CXR does show patchy infiltrates and she is with wheezing, rhonchi, and productive cough add sputum cx, add Cefepime, check MRSA swab and if positive, add vanco she has tolerated Cefepime in the past without allergic reaction as per my d/w pharmacist here add Kandice add lasix 20mg IV bid to continue to diurese
--- NOTE | 2022-10-07 15:43 | Electrocardiogram Report ---
Test Reason : Blood Pressure : / mmHG Vent. Rate : 095 BPM Atrial Rate : 000 BPM P-R Int : 000 ms QRS Dur : 114 ms QT Int : 370 ms P-R-T Axes : 000 -61 163 degrees QTc Int : 464 ms Atrial fibrillation Left axis deviation Incomplete right bundle branch block Minimal voltage criteria for LVH, may be normal variant ( R in aVL ) Inferior infarct , age undetermined Marked ST abnormality, possible lateral subendocardial injury Abnormal ECG When compared with ECG of 30-SEP-2022 18:44, Electronic ventricular pacemaker no longer present Confirmed by Cesar Coelho ([id number]) on 10/07/2022 3:43:08 PM Referred By: REFERRED SELF Confirmed By:Cesar Coelho
[2022-10-07] MEDS ORDERED: CEFEPIME 2,000 MG in SYRINGE 0 ML IV ONE (16:00)
[2022-10-07] MEDS: FUROSEMIDE INJ 20 MG/2 ML VIAL IV SCH (18:00)
[2022-10-07] MEDS: LORazepam 0.5 MG TAB PO SCH (20:38)
[2022-10-07] MEDS: SERTRALINE HCL 50 MG TABLET PO SCH (20:38)
--- NOTE | 2022-10-07 21:50 | Billing Data ---
Date of Service October 07, 2022 Coding Level of Care Code 52066 INT INP/OBS CARE
[2022-10-08] MEDS: CEFEPIME 1,000 MG in SYRINGE 0 ML IV SCH ×2 (04:55→16:34)
[2022-10-08 06:41] LABS: Basophils # (auto) 0.04 K/uL (0-0.2); Basophils % (auto) 0.6 %; Eosinophils # (auto) 0.32 K/uL (0-0.50); Eosinophils % (auto) 4.7 %; Hematocrit (blood only) 24.9 % (37.0-47.0); Hemoglobin 8.1 g/dl (12.0-16.0); Immature Granulocytes # (auto) 0.05 K/uL (0.01-0.20); Immature Granulocytes % (auto) 0.7 %; Lymphocytes # (auto) 0.52 K/uL (1.2-3.4); Lymphocytes % (auto) 7.7 %; Mean Corpuscular Hemoglobin 25.6 pg (25.0-34.0); Mean Corpuscular Hgb Conc 32.5 g/dL (32.0-36.0); Mean Corpuscular Volume 78.5 fL (80.0-100.0); Mean Platelet Volume 9.9 fL (9.4-12.4); Monocytes # (auto) 1.47 K/uL (0.11-0.59); Monocytes % (auto) 21.6 %; Neutrophils # (auto) 4.39 K/uL (1.40-6.50); Neutrophils % (auto) 64.7 %; Platelet Count 209 K/uL (130-400); RDW Coefficient of Variation 17.5 % (11.5-14.5); Red Blood Count 3.17 M/uL (4.20-5.40); White Blood Count 6.79 K/ul (4.8-10.8)
[2022-10-08 06:57] LABS: BUN Creatinine Ratio 20.2 (10-20); Calcium 8.6 mg/dl (8.6-10.3); Creatinine Clr Calc Pharmacy 22.5 ml/min; Est GFR (African American) 30.9 ml/min; Est GFR (Non-African American) 26.7 ml/min; Magnesium 1.7 mg/dl (1.7-2.4); Potassium 3.6 mmol/L (3.5-5.1)
--- NOTE | 2022-10-08 08:40 | Hospitalist Progress Note ---
Date of Service October 08, 2022 Assessment & Plan (1) Diastolic CHF: Plan: 87 yo female with PMHx of afib, right sided and chronic HFpEF, frequent falls, CKD stage 5, diastolic CHF, constipation, GERD, anxiety, depression, and gouty arthritis presents with ambulatory dysfunction 2/2 bilateral LE swelling and associated sob. Acute on chronic diastolic CHF WIth weight gain, significant peripheral edema, elevated BNP ECHO with preserved EF but with dilated RV, mod-severe TR -home lasix on MWF schedule, compliant. Follows with cardiology. 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 1.6 -daily weights, strict I/Os, low Na diet -follow BMP, Mag-replace IV mag today to get over 2.0 (2) Pneumonia: Plan: Pneumonia p/w cough, infiltrates on CXR, sputum production, but no leukocytosis or fever No hypoxia but had significant wheezing and rhonchi onday of admission now improving SPutum cx prelim light normal amelia COVID neg With recent hospitalization, need to treat for HCAP/Gram negative PNA especially with a personal recent history of MRSA and Pseudomonas infection in her leg wound -continue Cefepime and despite neg MRSA swab, will add on doxycycline 100mg IV bid today given recent h/o MRSA infection -continue DUonebs prn -follow CXR to resolution in 4-6 weeks (3) Ambulatory dysfunction: Plan: -discharged to home from [facility] 5 days prio to this admission for same complaint -fall precautions -PT/OT ordered, needs rehab -continue diuresis to assist with decreasing peripheral edema (4) Depression: Plan: -cont. home sertraline and ativan (5) Atrial fibrillation: Plan: h/o pacemaker -cont. home metoprolol and diltiazem -not on anticoagulation due to h/o frequent falls and hematoma -pacemaker in place (6) Frequent falls: Plan: as above needs rehab (7) Chronic kidney disease, stage IV (severe): Plan: #CKD, stage 5 -Cr 1.7 on admission, appears near baseline. (8) Pacemaker: Plan: as above (9) Gouty arthritis: Plan: -cont. home allopurinol (10) Anemia: Plan: chronic-Hgb on admission 9.7. MCV 79. Likely multifactorial with CKD and iron deficiency. -repeat iron studies show transferrin sat low at 5%--> give IV iron in AM -B12 and folate normal -monitor hgb (11) Constipation: Plan: moving bowels here, with ostomy -cont. home miralax and colace (12) GERD (gastroesophageal reflux disease): Plan: -cont. PPI Plan DVT proph-add Lovenox Admission and Anticipated Discharge Date Admission Date: October 07, 2022 Subjective Pt reports cough is a little better today. Still has a lot of leg swelling. Was in bed all day until before dinner time. Tele with Afib, rates 80-90s Physical Exam Constitutional: WD/WN, vitals as above Neck: trachea midline, no thyromegaly Respiratory: normal respiratory effort; not tachypneic Auscultation: + crackles (left base); no rhonchi and no wheezes (resolved today) Cardiovascular: Rate/Rhythm: regular rate and + irregularly irregular Heart Sounds: + murmur (2/6 systolic murmur at LLSB) Extremities: + edema (2+ pitting edema legs bilat) Gastrointestinal (Abdomen): Inspection/Auscultation: + abdomen abnormal to inspection (ostomy bag in place with gas and stool) Musculoskeletal: Extremities: no cyanosis and no clubbing Neurologic: moves all extremities and awake; no focal motor deficits Psychiatric: A+Ox3, euthymic affect Results & Data Results & Data Vital Signs (Past 12 Hours) Vital Signs Temp Pulse Pulse Resp BP Pulse Ox O2 Del Method 10/08/22 07:26 37.1 C 98 H 18 137/74 96 Room Air 10/08/22 00:00 87 10/08/22 04:00 37.2 C 86 20 123/68 94 Room Air 10/07/22 22:00 37.1 C 88 20 137/73 96 Room Air Laboratory Results CBC, Fe studies, BMP, magnesium, B12, folate reviewed Sputum cx prelim light normal amelia PG Care Time/CCT Total # of Minutes Spent Total Time Spent with Patient: Total time spent is greater than 50% in coordination of care (as documented) at patient's floor/unit and/or counseling patient: Coding Level of Care Code 30491 SUB INP/OBS CARE 3/50MIN Diagnoses Diastolic CHF I50.30 Pneumonia J18.9 Ambulatory dysfunction R26.2 Depression F32.A Atrial fibrillation I48.91 Atrial fibrillation type: unspecified Frequent falls R29.6 Chronic kidney disease, stage IV (severe) N18.4 Pacemaker Z95.0 Gouty arthritis M10.9 Anemia D64.9 Anemia type: unspecified type Constipation K59.00 GERD (gastroesophageal reflux disease) K21.9 (5) Atrial fibrillation Atrial fibrillation type: unspecified Qualified Code(s): I48.91 - Unspecified atrial fibrillation (10) Anemia Anemia type: unspecified type Qualified Code(s): D64.9 - Anemia, unspecified
[2022-10-08] MEDS: allopurinoL 100 MG TAB PO SCH (09:06)
[2022-10-08] MEDS: METOPROLOL SUCC 50MG EXT REL TAB PO SCH ×2 (09:06→20:15)
[2022-10-08] MEDS: PANTOprazole 40 MG TAB PO SCH (09:06)
[2022-10-08] MEDS: dilTIAZem HCL 180 MG CAPCR PO SCH (09:06)
[2022-10-08] MEDS: DOCUSATE SODIUM 100 MG CAP PO SCH (09:06)
[2022-10-08] MEDS: POLYETHYLENE (MIRALAX) 17 GM PACK PO SCH ×2 (09:07→20:16)
[2022-10-08] MEDS: CALCITONIN SALMON NA 200 IU/AC 3.7 ML BTL SCH (09:07)
[2022-10-08] MEDS: FUROSEMIDE INJ 20 MG/2 ML VIAL IV SCH ×2 (09:07→16:34)
[2022-10-08] MEDS: MAGNESIUM SULFATE / D5W 1 GM/100 ML BAG IV SCH ×2 (09:07→11:39)
[2022-10-08 09:39] LABS: Troponin I High Sensitivity 17.4 pg/ml (0-14)
[2022-10-08] MEDS: SERTRALINE HCL 50 MG TABLET PO SCH (20:15)
[2022-10-08] MEDS: LORazepam 0.5 MG TAB PO SCH (20:15)
[2022-10-08] MEDS: DOXYCYCLINE HYCLATE 100 MG in DEXTROSE 5% 100 ML IV SCH (23:49)
[2022-10-09] MEDS: CEFEPIME 1,000 MG in SYRINGE 0 ML IV SCH ×2 (04:01→17:21)
[2022-10-09 06:28] LABS: Basophils # (auto) 0.04 K/uL (0-0.2); Basophils % (auto) 0.6 %; Eosinophils # (auto) 0.44 K/uL (0-0.50); Eosinophils % (auto) 6.9 %; Hematocrit (blood only) 26.4 % (37.0-47.0); Hemoglobin 8.7 g/dl (12.0-16.0); Immature Granulocytes # (auto) 0.05 K/uL (0.01-0.20); Immature Granulocytes % (auto) 0.8 %; Lymphocytes # (auto) 0.65 K/uL (1.2-3.4); Lymphocytes % (auto) 10.2 %; Mean Corpuscular Hemoglobin 25.7 pg (25.0-34.0); Mean Corpuscular Volume 77.9 fL (80.0-100.0); Monocytes # (auto) 1.49 K/uL (0.11-0.59); Monocytes % (auto) 23.4 %; Neutrophils % (auto) 58.1 %; Platelet Count 226 K/uL (130-400); RDW Coefficient of Variation 17.6 % (11.5-14.5); RDW Standard Deviation 49.2 fL (36.4-46.3); Red Blood Count 3.39 M/uL (4.20-5.40); White Blood Count 6.37 K/ul (4.8-10.8)
[2022-10-09 06:46] LABS: BUN Creatinine Ratio 20.2 (10-20); Calcium 8.5 mg/dl (8.6-10.3); Creatinine Clr Calc Pharmacy 22.2 ml/min; Est GFR (African American) 27.9 ml/min; Potassium 3.4 mmol/L (3.5-5.1)
[2022-10-09] MEDS: DOCUSATE SODIUM 100 MG CAP PO SCH (09:52)
[2022-10-09] MEDS: dilTIAZem HCL 180 MG CAPCR PO SCH (09:52)
[2022-10-09] MEDS: CALCITONIN SALMON NA 200 IU/AC 3.7 ML BTL SCH ×2 (09:52→09:54)
[2022-10-09] MEDS: PANTOprazole 40 MG TAB PO SCH (09:52)
[2022-10-09] MEDS: METOPROLOL SUCC 50MG EXT REL TAB PO SCH ×2 (09:52→20:29)
[2022-10-09] MEDS: allopurinoL 100 MG TAB PO SCH (09:52)
[2022-10-09] MEDS: POLYETHYLENE (MIRALAX) 17 GM PACK PO SCH ×2 (09:56→20:30)
[2022-10-09] MEDS: ENOXAPARIN INJ 30 MG/0.3 ML SYR SQ SCH (09:57)
[2022-10-09] MEDS: FUROSEMIDE INJ 20 MG/2 ML VIAL IV SCH (10:03)
[2022-10-09] MEDS: IRON SUCROSE 300 MG in SODIUM CHLORIDE 0.9% 250 ML IV SCH (10:03)
[2022-10-09] MEDS: DOXYCYCLINE HYCLATE 100 MG in DEXTROSE 5% 100 ML IV SCH ×2 (12:47→22:18)
--- NOTE | 2022-10-09 17:05 | Hospitalist Progress Note ---
Date of Service October 09, 2022 Assessment & Plan (1) Diastolic CHF: Plan: 87 yo female with PMHx of afib, right sided and chronic HFpEF, frequent falls, CKD stage 5, diastolic CHF, constipation, GERD, anxiety, depression, and gouty arthritis presents with ambulatory dysfunction 2/2 bilateral LE swelling and associated sob. Acute on chronic diastolic CHF WIth weight gain, significant peripheral edema, elevated BNP ECHO with preserved EF but with dilated RV, mod-severe TR Home lasix on MWF schedule, compliant. Follows with cardiology. 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 up to 1.8 -HOLD further IV lasix due to rising machined parts metal sprayer and will likely restart po lasix tomorrow if machined parts metal sprayer stable -daily weights, strict I/Os, low Na diet -follow BMP, Mag, replete lytes as needed-is "allergic" to potassium but not sure what reaction is (2) Pneumonia: Plan: Pneumonia p/w cough, infiltrates on CXR, sputum production, but no leukocytosis or fever No hypoxia but had significant wheezing and rhonchi on day of admission now much improved Sputum cx normal amelia COVID neg With recent hospitalization, need to treat for HCAP/Gram negative PNA especially with a personal recent history of MRSA and Pseudomonas infection in her leg wound -continue Cefepime and despite neg MRSA swab, added on doxycycline 100mg IV bid given recent h/o MRSA infection -continue DUonebs prn -follow CXR to resolution in 4-6 weeks (3) Ambulatory dysfunction: Plan: -discharged to home from [facility] 5 days prio to this admission for same complaint -fall precautions -PT/OT ordered, needs rehab -diuresis to assist with decreasing peripheral edema (4) Depression: Plan: -cont. home sertraline and ativan (5) Atrial fibrillation: Plan: h/o pacemaker -cont. 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 home allopurinol (10) Anemia: Plan: chronic-Hgb on admission 9.7. MCV 79. Likely multifactorial with CKD and iron deficiency. -repeat iron studies show transferrin sat low at 5%--> give IV iron daily x 3 doses -B12 and folate normal -monitor hgb (11) Constipation: Plan: moving bowels here, with ostomy -cont. home miralax and colace (12) GERD (gastroesophageal reflux disease): Plan: -cont. PPI Plan DVT proph-SQ Lovenox Admission and Anticipated Discharge Date Admission Date: October 07, 2022 Subjective Feeling fine, still a mild cough but better. Was OOB to chair. Is eating. Tele with Afib, rate controlled. Physical Exam Constitutional: WD/WN, vitals as above Neck: trachea midline, no thyromegaly Respiratory: normal respiratory effort; not tachypneic Auscultation: + crackles (left base); no rhonchi and no wheezes (resolved today) Cardiovascular: Rate/Rhythm: regular rate and + irregularly irregular Heart Sounds: + murmur (2/6 systolic murmur at LLSB) Extremities: + edema (2+ pitting edema legs bilat) Gastrointestinal (Abdomen): Inspection/Auscultation: + abdomen abnormal to inspection (ostomy bag in place with gas and stool) Musculoskeletal: Extremities: no cyanosis and no clubbing Neurologic: moves all extremities and awake; no focal motor deficits Psychiatric: A+Ox3, euthymic affect Results & Data Results & Data Vital Signs (Past 12 Hours) Vital Signs Temp Pulse Pulse Resp BP Pulse Ox O2 Del Method 10/09/22 15:33 36.6 C 73 18 130/69 92 Room Air 10/09/22 09:00 Room Air 10/09/22 06:00 77 10/09/22 11:33 37.1 C 88 18 136/80 95 Room Air 10/09/22 08:09 36.9 C 91 H 17 154/80 H 95 Room Air Laboratory Results CBC, BMP, magnesium reviewed PG Care Time/CCT Total # of Minutes Spent Total Time Spent with Patient: Total time spent is greater than 50% in coordination of care (as documented) at patient's floor/unit and/or counseling patient: Coding Level of Care Code 54210 SUB INP/OBS CARE 2/35MIN Diagnoses Diastolic CHF I50.30 Pneumonia J18.9 Ambulatory dysfunction R26.2 Depression F32.A Atrial fibrillation I48.91 Atrial fibrillation type: unspecified Frequent falls R29.6 Chronic kidney disease, stage IV (severe) N18.4 Pacemaker Z95.0 Gouty arthritis M10.9 Anemia D64.9 Anemia type: unspecified type Constipation K59.00 GERD (gastroesophageal reflux disease) K21.9 (5) Atrial fibrillation Atrial fibrillation type: unspecified Qualified Code(s): I48.91 - Unspecified atrial fibrillation (10) Anemia Anemia type: unspecified type Qualified Code(s): D64.9 - Anemia, unspecified
[2022-10-09] MEDS: SERTRALINE HCL 50 MG TABLET PO SCH (20:28)
[2022-10-09] MEDS: LORazepam 0.5 MG TAB PO SCH (20:28)
[2022-10-10] MEDS: CEFEPIME 1,000 MG in SYRINGE 0 ML IV SCH ×2 (03:48→16:32)
[2022-10-10 07:40] LABS: Basophils # (auto) 0.03 K/uL (0-0.2); Basophils % (auto) 0.5 %; Eosinophils # (auto) 0.45 K/uL (0-0.50); Eosinophils % (auto) 7.5 %; Hemoglobin 8.7 g/dl (12.0-16.0); Immature Granulocytes # (auto) 0.05 K/uL (0.01-0.20); Immature Granulocytes % (auto) 0.8 %; Lymphocytes # (auto) 0.74 K/uL (1.2-3.4); Lymphocytes % (auto) 12.3 %; Mean Corpuscular Hemoglobin 25.4 pg (25.0-34.0); Mean Corpuscular Hgb Conc 32.2 g/dL (32.0-36.0); Mean Corpuscular Volume 78.9 fL (80.0-100.0); Mean Platelet Volume 10.1 fL (9.4-12.4); Monocytes # (auto) 1.35 K/uL (0.11-0.59); Monocytes % (auto) 22.4 %; Neutrophils # (auto) 3.41 K/uL (1.40-6.50); Neutrophils % (auto) 56.5 %; Platelet Count 214 K/uL (130-400); RDW Coefficient of Variation 17.8 % (11.5-14.5); Red Blood Count 3.42 M/uL (4.20-5.40); White Blood Count 6.03 K/ul (4.8-10.8)
[2022-10-10 07:55] LABS: BUN Creatinine Ratio 23.2 (10-20); Calcium 8.6 mg/dl (8.6-10.3); Creatinine Clr Calc Pharmacy 23.4 ml/min; Est GFR (African American) 34.1 ml/min; Est GFR (Non-African American) 29.4 ml/min; Magnesium 1.8 mg/dl (1.7-2.4); Potassium 3.3 mmol/L (3.5-5.1)
[2022-10-10] MEDS: METOPROLOL SUCC 50MG EXT REL TAB PO SCH ×2 (08:46→20:30)
[2022-10-10] MEDS: allopurinoL 100 MG TAB PO SCH (08:47)
[2022-10-10] MEDS: dilTIAZem HCL 180 MG CAPCR PO SCH (08:47)
[2022-10-10] MEDS: DOCUSATE SODIUM 100 MG CAP PO SCH (08:47)
[2022-10-10] MEDS: ENOXAPARIN INJ 30 MG/0.3 ML SYR SQ SCH (08:47)
[2022-10-10] MEDS: PANTOprazole 40 MG TAB PO SCH (08:47)
[2022-10-10] MEDS: CALCITONIN SALMON NA 200 IU/AC 3.7 ML BTL SCH (08:50)
[2022-10-10] MEDS: IRON SUCROSE 300 MG in SODIUM CHLORIDE 0.9% 250 ML IV SCH (08:50)
[2022-10-10] MEDS: POLYETHYLENE (MIRALAX) 17 GM PACK PO SCH ×2 (08:50→20:31)
[2022-10-10] MEDS ORDERED: MAGNESIUM SULFATE / D5W 1 GM/100 ML BAG IV ONE (08:59)
[2022-10-10] MEDS: DOXYCYCLINE HYCLATE 100 MG in DEXTROSE 5% 100 ML IV SCH (11:04)
[2022-10-10] MEDS: FUROSEMIDE 40 MG TAB PO SCH (11:04)
[2022-10-10] MEDS ORDERED: POTASSIUM CHLORIDE CRTAB 20 MEQ TABCR PO STA (12:30)
--- NOTE | 2022-10-10 12:35 | Hospitalist Progress Note ---
Date of Service October 10, 2022 Assessment & Plan (1) Diastolic CHF: Plan: 87 yo female with PMHx of afib, right sided and chronic HFpEF, frequent falls, CKD stage 5, diastolic CHF, constipation, GERD, anxiety, depression, and gouty arthritis presents with ambulatory dysfunction 2/2 bilateral LE swelling and associated sob. Acute on chronic diastolic CHF WIth weight gain, significant peripheral edema, elevated BNP. Likely 2/2 high sodium diet at home, recent hospitalization-unclear if received IVFs? ECHO with preserved EF but with dilated RV, mod-severe TR Home lasix on MWF schedule, compliant. Follows with cardiology. 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 Will give KCl 20 meq po x 1 now for hypokalemia (2) Pneumonia: Plan: Pneumonia p/w cough, infiltrates on CXR, sputum production, but no leukocytosis or fever No hypoxia but had significant wheezing and rhonchi on day of admission now much improved Sputum cx normal amelia COVID neg With recent hospitalization, need to treat for HCAP/Gram negative PNA especially with a personal recent history of MRSA and Pseudomonas infection in her leg wound -continue Cefepime and despite neg MRSA swab, added on doxycycline 100mg IV bid given recent h/o MRSA infection -continue DUonebs prn -follow CXR to resolution in 4-6 weeks (3) Ambulatory dysfunction: Plan: -discharged to home from [facility] 5 days prio to this admission for same complaint -fall precautions -PT/OT ordered, needs rehab -diuresis to assist with decreasing peripheral edema (4) Depression: Plan: -cont. home sertraline and ativan (5) Atrial fibrillation: Plan: h/o pacemaker -cont. home metoprolol and diltiazem -not on anticoagulation due to h/o frequent falls and hematoma -pacemaker in place -ok to downgrade off tele (6) Frequent falls: Plan: as above needs rehab (7) Chronic kidney disease, stage IV (severe): Plan: #CKD, stage 5 -Cr 1.7 on admission, now 1.5 (8) Pacemaker: Plan: as above (9) Gouty arthritis: Plan: -cont. home allopurinol (10) Anemia: Plan: chronic-Hgb on admission 9.7. MCV 79. Likely multifactorial with CKD and iron deficiency. -repeat iron studies show transferrin sat low at 5%--> give IV iron daily x 3 doses -B12 and folate normal -monitor hgb (11) Constipation: Plan: moving bowels here, with ostomy -cont. home miralax and colace (12) GERD (gastroesophageal reflux disease): Plan: -cont. PPI Plan DVT proph-SQ Lovenox Dispo-medically stable for discharge but rehab cannot taker her until Wednesday- plan for dc to [facility] on Wednesday-auth already approved. Downgrade off tele today Admission and Anticipated Discharge Date Admission Date: October 07, 2022 Subjective Pt still with mild productive cough, no toher concerns Moving bowels, no diarrhea. Tele with rate controlled Afib Discussed care with daughter at bedside Physical Exam Constitutional: WD/WN, vitals as above Neck: trachea midline, no thyromegaly Respiratory: normal respiratory effort; not tachypneic Auscultation: + crackles (left base); no rhonchi and no wheezes (resolved today) Cardiovascular: Rate/Rhythm: regular rate and + irregularly irregular Heart Sounds: + murmur (2/6 systolic murmur at LLSB) Extremities: + edema (1+ pitting edema legs bilat,wrinkled skin,improved) Gastrointestinal (Abdomen): Inspection/Auscultation: + abdomen abnormal to inspection (ostomy bag in place with gas and stool) Percussion/Palpation: abdomen soft; abdomen nontender Musculoskeletal: Extremities: no cyanosis and no clubbing Neurologic: moves all extremities and awake; no focal motor deficits Psychiatric: A+Ox3, euthymic affect Results & Data Results & Data Vital Signs (Past 12 Hours) Vital Signs Temp Pulse Pulse Resp BP Pulse Ox O2 Del Method 10/10/22 11:44 88 93 Room Air 10/10/22 11:14 36.9 C 88 17 139/79 89 L Room Air 10/10/22 07:55 36.9 C 83 18 132/77 90 Room Air 10/10/22 06:30 77 10/10/22 02:53 36.7 C 74 18 127/75 94 Room Air Laboratory Results CBC, BMP, magnesium reviewed PG Care Time/CCT Total # of Minutes Spent Total Time Spent with Patient: Total time spent is greater than 50% in coordination of care (as documented) at patient's floor/unit and/or counseling patient: Coding Level of Care Code 09992 SUB INP/OBS CARE 235MIN Diagnoses Diastolic CHF I50.30 Pneumonia J18.9 Ambulatory dysfunction R26.2 Depression F32.A Atrial fibrillation I48.91 Atrial fibrillation type: unspecified Frequent falls R29.6 Chronic kidney disease, stage IV (severe) N18.4 Pacemaker Z95.0 Gouty arthritis M10.9 Anemia D64.9 Anemia type: unspecified type Constipation K59.00 GERD (gastroesophageal reflux disease) K21.9 (5) Atrial fibrillation Atrial fibrillation type: unspecified Qualified Code(s): I48.91 - Unspecified atrial fibrillation (10) Anemia Anemia type: unspecified type Qualified Code(s): D64.9 - Anemia, unspecified
[2022-10-10] MEDS: LORazepam 0.5 MG TAB PO SCH (20:30)
[2022-10-10] MEDS: MELATONIN 3 MG TAB PO SCH (20:30)
[2022-10-10] MEDS: CEROVITE ADV FORMULA TAB PO SCH (20:31)
[2022-10-10] MEDS: SERTRALINE HCL 50 MG TABLET PO SCH (20:31)
[2022-10-10] MEDS ORDERED: DOXYCYCLINE HYCLATE 100 MG CAP PO SCH (21:00)
[2022-10-11 06:17] LABS: BUN Creatinine Ratio 22.7 (10-20); Calcium 8.9 mg/dl (8.6-10.3); Creatinine Clr Calc Pharmacy 23.5 ml/min; Est GFR (African American) 34.3 ml/min; Est GFR (Non-African American) 29.6 ml/min; Magnesium 1.9 mg/dl (1.7-2.4); Potassium 3.7 mmol/L (3.5-5.1)
[2022-10-11] MEDS ORDERED: PROCHLORPERAZINE MALEATE 5 MG TAB PO ONE (08:42)
[2022-10-11] MEDS ORDERED: CEROVITE ADV FORMULA TAB PO SCH (09:00)
[2022-10-11] MEDS: FAMOTIDINE 20 MG TAB PO SCH (09:07)
[2022-10-11] MEDS: CHOLECALCIFEROL 1,000 UNITS 25 MCG TAB PO SCH (09:07)
[2022-10-11] MEDS: dilTIAZem HCL 180 MG CAPCR PO SCH (09:07)
[2022-10-11] MEDS: DOCUSATE SODIUM 100 MG CAP PO SCH (09:07)
[2022-10-11] MEDS: METOPROLOL SUCC 50MG EXT REL TAB PO SCH ×2 (09:07→21:25)
[2022-10-11] MEDS: PANTOprazole 40 MG TAB PO SCH (09:07)
[2022-10-11] MEDS: POLYETHYLENE (MIRALAX) 17 GM PACK PO SCH ×2 (09:08→21:25)
[2022-10-11] MEDS: CALCITONIN SALMON NA 200 IU/AC 3.7 ML BTL SCH (09:08)
[2022-10-11] MEDS: allopurinoL 100 MG TAB PO SCH (09:08)
[2022-10-11] MEDS: ENOXAPARIN INJ 30 MG/0.3 ML SYR SQ SCH (09:09)
[2022-10-11] MEDS: FUROSEMIDE 40 MG TAB PO SCH (10:47)
[2022-10-11] MEDS: CEROVITE ADV FORMULA TAB PO SCH ×2 (10:47→21:23)
[2022-10-11] MEDS ORDERED: guaiFENesin/DEXTROM SYRUP 200MG/20MG 10ML UDC PO PRN (17:27)
--- NOTE | 2022-10-11 17:27 | Hospitalist Progress Note ---
Date of Service October 11, 2022 Assessment & Plan (1) Diastolic CHF: Plan: 87 yo female with PMHx of afib, right sided and chronic HFpEF, frequent falls, CKD stage 5, diastolic CHF, constipation, GERD, anxiety, depression, and gouty arthritis presents with ambulatory dysfunction 2/2 bilateral LE swelling and associated sob. Acute on chronic diastolic CHF WIth weight gain, significant peripheral edema, elevated BNP. Likely 2/2 high sodium diet at home, recent hospitalization-unclear if received IVFs during that stay? ECHO with preserved EF but with dilated RV, mod-severe TR Home lasix on 20mg po MWF schedule, compliant. Follows with cardiology. 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 --> no replacement needed today. No labs needed for tomorrow-plan for discharge to SNF tomorrow (2) Pneumonia: Plan: Pneumonia p/w cough, infiltrates on CXR, sputum production, but no leukocytosis or fever No hypoxia but had significant wheezing and rhonchi on day of admission now much improved Sputum cx normal amelia COVID neg With recent hospitalization, need to treat for HCAP/Gram negative PNA especially with a personal recent history of MRSA and Pseudomonas infection in her leg wound Still with mild cough Completed 4 1/2 days of Cefepime and doxycycline, but stopped as she blew through numerous IVs and had infiltration--> she received enough abx and didn't want to place a new IV. PO Doxycycline made her vomit -continue DUonebs prn -add on guaifenesin DM 10mL po q6h prn -follow CXR to resolution in 4-6 weeks (3) Ambulatory dysfunction: Plan: -discharged to home from [facility] 5 days prio to this admission for same complaint -fall precautions -PT/OT ordered, needs rehab -diuresis to assist with decreasing peripheral edema (4) Depression: Plan: -cont. home sertraline and ativan (5) Atrial fibrillation: Plan: h/o pacemaker -cont. home metoprolol and diltiazem -not on anticoagulation due to h/o frequent falls and hematoma -pacemaker in place -have since downgraded off of tele (6) Frequent falls: Plan: as above needs rehab (7) Chronic kidney disease, stage IV (severe): Plan: #CKD, stage 5 -Cr 1.7 on admission, now 1.5 and stable (8) Pacemaker: Plan: as above (9) Gouty arthritis: Plan: -cont. home allopurinol (10) Anemia: Plan: chronic-Hgb on admission 9.7. MCV 79. Likely multifactorial with CKD and iron deficiency. -repeat iron studies show transferrin sat low at 5%--> gave IV iron daily x 2 doses while here -B12 and folate normal -monitor CBC as outpt (11) Constipation: Plan: moving bowels here, with ostomy -cont. home miralax and colace (12) GERD (gastroesophageal reflux disease): Plan: -cont. PPI Plan DVT proph-SQ Lovenox Dispo-medically stable for discharge but rehab cannot take her until Wednesday-plan for dc to [facility] on Wednesday-auth already approved. Admission and Anticipated Discharge Date Admission Date: October 07, 2022 Subjective Had some nausea with a small episode of emesis this AM. Took po doxycycline last night. Since then ,feels well, eating. Still with a cough. Physical Exam Constitutional: WD/WN, vitals as above Neck: trachea midline, no thyromegaly Respiratory: normal respiratory effort; not tachypneic Auscultation: no rhonchi and no wheezes (resolved today) Cardiovascular: Rate/Rhythm: regular rate and + irregularly irregular Heart Sounds: + murmur (2/6 systolic murmur at LLSB) Extremities: + edema (1+ pitting edema legs bilat,wrinkled skin,improved) Gastrointestinal (Abdomen): Inspection/Auscultation: + abdomen abnormal to inspection (ostomy bag in place with gas and stool) Percussion/Palpation: abdomen soft; abdomen nontender Musculoskeletal: Extremities: no cyanosis and no clubbing Neurologic: moves all extremities and awake; no focal motor deficits Psychiatric: Orientation: alert, oriented to person, oriented to place and cooperative Results & Data Results & Data Vital Signs (Past 12 Hours) Vital Signs Temp Pulse Resp BP Pulse Ox O2 Del Method 10/11/22 15:40 36.7 C 79 18 124/71 93 Room Air 10/11/22 13:00 Room Air 10/11/22 11:51 36.5 C 82 18 112/69 90 Room Air 10/11/22 08:17 36.8 C 79 18 134/72 90 Room Air Laboratory Results BMP, magnesium reviewed PG Care Time/CCT Total # of Minutes Spent Total Time Spent with Patient: Total time spent is greater than 50% in coordination of care (as documented) at patient's floor/unit and/or counseling patient: Coding Level of Care Code 72154 SUB INP/OBS CARE 05/13MIN Diagnoses Diastolic CHF I50.30 Pneumonia J18.9 Ambulatory dysfunction R26.2 Depression F32.A Atrial fibrillation I48.91 Atrial fibrillation type: unspecified Frequent falls R29.6 Chronic kidney disease, stage IV (severe) N18.4 Pacemaker Z95.0 Gouty arthritis M10.9 Anemia D64.9 Anemia type: unspecified type Constipation K59.00 GERD (gastroesophageal reflux disease) K21.9 (5) Atrial fibrillation Atrial fibrillation type: unspecified Qualified Code(s): I48.91 - Unspecified atrial fibrillation (10) Anemia Anemia type: unspecified type Qualified Code(s): D64.9 - Anemia, unspecified
[2022-10-11] MEDS ORDERED: guaiFENesin/DEXTROM SYRUP 200MG/20MG 10ML UDC PO STA (17:31)
[2022-10-11] MEDS: MELATONIN 3 MG TAB PO SCH (21:21)
[2022-10-11] MEDS: LORazepam 0.5 MG TAB PO SCH (21:21)
[2022-10-11] MEDS: SERTRALINE HCL 50 MG TABLET PO SCH (21:22)
[2022-10-12] MEDS: CEROVITE ADV FORMULA TAB PO SCH (09:01)
[2022-10-12] MEDS: dilTIAZem HCL 180 MG CAPCR PO SCH (09:01)
[2022-10-12] MEDS: CHOLECALCIFEROL 1,000 UNITS 25 MCG TAB PO SCH (09:01)
[2022-10-12] MEDS: DOCUSATE SODIUM 100 MG CAP PO SCH (09:02)
[2022-10-12] MEDS: allopurinoL 100 MG TAB PO SCH (09:02)
[2022-10-12] MEDS: PANTOprazole 40 MG TAB PO SCH (09:02)
[2022-10-12] MEDS: FUROSEMIDE 40 MG TAB PO SCH (09:02)
[2022-10-12] MEDS: FAMOTIDINE 20 MG TAB PO SCH (09:03)
[2022-10-12] MEDS: CALCITONIN SALMON NA 200 IU/AC 3.7 ML BTL SCH (09:03)
[2022-10-12] MEDS: ENOXAPARIN INJ 30 MG/0.3 ML SYR SQ SCH (09:03)
[2022-10-12] MEDS: METOPROLOL SUCC 50MG EXT REL TAB PO SCH (09:04)
[2022-10-12] MEDS: POLYETHYLENE (MIRALAX) 17 GM PACK PO SCH (09:04)
--- NOTE | 2022-10-12 11:31 | Discharge Summary ---
Date of Service October 12, 2022 Admission HPI Per Admitting Provider 87 yo female with PMHx of afib, frequent falls, CKD stage 5, diastolic CHF, constipation, GERD, anxiety, depression, and gouty arthritis presents with ambulatory dysfunction 2/2 bilateral LE swelling and associated sob. Patient was recently hospitalized at [facility] for ambulatory dysfunction 5 days ago and discharged to home with plan for outpatient physical therapy. She typically ambulates with a walker. Yesterday, she was sitting down and felt that she would fall even if using her walker due to weakness in her legs. She has chronic LE edema 2/2 CHF and takes lasix MWF schedule. Follows with cardiology. She states her legs are larger than her normal. Attempts to limit salt intake since daughter will bring her microwaveable meals. Some associated shortness of breath on exertion and cough otherwise denies headache, fever, fatigue, chest pain, abd pain, N/V, dysuria, numbness/tingling of extremities. Principal Diagnosis Acute on chronic diastolic congestive heart failure, ambulatory dysfunction, suspected pneumonia Discharge Exam General-alert and oriented x3, no fevers, no chills HEENT-head atraumatic and normocephalic, pupils equal and reactive to light, extraocular muscles intact Neck-no lymphadenopathy or thyromegaly, trachea midline Chest-clear to auscultation percussion. No rales wheezing or rhonchi Cardiac-regular rate and rhythm, normal S1 and S2 Abdomen-normal bowel sounds, nontender, no hepatosplenomegaly. Functioning colostomy present Extremities-no cyanosis, clubbing, or edema Neuro-cranial nerves II through XII intact, motor and sensory function within normal limits, strength symmetrical , no focal deficits Psych-normal affect, normal mood Discharge Data Allergies Allergy/AdvReac Type Severity Reaction Status Date / Time Iodinated Contrast Media Allergy Severe Difficulty Verified 06/08/22 10:47 Breathing, Severe Hives cephalexin Allergy Unknown Unknown Verified 06/08/22 10:47 diphenhydramine Allergy Unknown DOES NOT Verified 06/08/22 10:47 REMEMBER mushroom Allergy Unknown Unknown Verified 06/08/22 10:47 potassium chloride Allergy Unknown ALmost Verified 10/10/22 12:31 Sulfa (Sulfonamide Allergy Unknown Unknown Verified 06/08/22 10:47 Antibiotics) Consultations 10/07/22 05:05 ED Decision to Admit Stat Hospital Course (1) Diastolic CHF: Acute on chronic diastolic congestive heart failure present on admission. She is now back to her baseline after parenteral diuretic therapy. She is now on room air. ECHO with preserved EF but with dilated RV, mod-severe TR (2) Pneumonia: Suspected present on admission. Treated with cefepime and doxycycline. COVID- negative . Resolved (3) Ambulatory dysfunction: Supportive care. Continue OT and PT (4) Depression: Stable. Continue current medical management (5) Atrial fibrillation: h/o pacemaker. Stable. Continue metoprolol and diltiazem. She is not on systemic anticoagulation due to h/o frequent falls. Pacemaker in place (6) Frequent falls: Supportive care. Continue OT and PT (7) Chronic kidney disease, stage IV (severe): Monitor intake and output. Serial labs. Stable (8) Pacemaker: Known. No intervention necessary at this time (9) Gouty arthritis: Stable. Continue allopurinol (10) Anemia: Chronic. No evidence of GI bleeding. Iron deficiency noted. She received intravenous Venofer while hospitalized. Continue oral iron replacement at discharge (11) Constipation: cont. miralax and colace (12) GERD (gastroesophageal reflux disease): Stable. Continue PPI therapy Plan DVT proph-SQ Lovenox Dispo-[facility] today, October 12 Total Time Total Time Spent Total Time Spent (In Minutes): 40 minutes Discharge Plan Discharge Items Patient Disposition: Transfer Alf Fac Reason For Visit: AMBULATORY DYFUNCTION,BILATERAL LE UMA Discharge Diagnosis: Acute on chronic diastolic CHF, suspected pneumonia, ambulatory dysfunction Activity: Resume your previous activity Non-emergency contact: Primary Care Provider Call non-emergency contact if: you have any medication questions Follow-up/Referrals: Patti James MD [Primary Care Provider] - Diet: Regular and Heart Healthy Addtl Attending Provider Instructions: Take medications as directed Pending Studies at Discharge: No Stand-Alone Forms: My [facility] Skilled Items Patient informed of condition?: Yes DNR: Yes Discharge Level of Care: Skilled Communicable Disease: No Discharge Prognosis: Stable Lines: None Urinary Catheter: No Medications and DC Order Prescriptions: New nitroglycerin [Nitrostat] 0.4 mg Tablet, Sublingual 0.4 mg sublingual Q5M PRNQty: 0 0RF calcitonin (salmon) 200 unit/actuation [place],Non-Aerosol 1 spray NA DAILY Qty: 0 0RF furosemide 40 mg Tablet 40 mg PO QAM Qty: 0 0RF Continued docusate sodium [Colace] 100 mg capsule 100 mg PO DAILY Rx Instructions: per daughter she gives her mom 2. one am/pm allopurinol 100 mg tablet 100 mg PO QAM omeprazole 20 mg capsule,delayed release(DR/EC) 20 mg PO QAM Centrum Silver Women 8 mg iron-400 mcg-300 mcg Tablet 1 tab PO QAM PreserVision AREDS-2 [phone] Capsule 1 tab PO BID nitroglycerin [Nitrostat] 0.4 mg Tablet, Sublingual 0.4 mg sublingual DIRECTED PRN (Reason: Chest Pain) Rx Instructions: PLACE ONE TABLET UNDER THE TONGUE EVERY 5 MINUTES FOR UP TO 3 DOSES OVER 15 MINUTES IF NEEDED FOR CHEST PAIN sertraline 25 mg tablet 25 mg PO HS melatonin 3 mg Tablet 3 mg PO HS Qty: 30 0RF diclofenac sodium [Voltaren Arthritis Pain] 1 % Gel 4 g EXT Q6 PRN (Reason: pain) Qty: 100 0RF Rx Instructions: to knees or shoulders acetaminophen [Tylenol Extra Strength] 500 mg tablet 1,000 mg PO TID PRN (Reason: Pain) metoprolol succinate 50 mg tablet extended release 24 hr 50 mg PO BID diltiazem HCl 180 mg Capsule,Extended Release 24hr 180 mg PO QAM Qty: 30 0RF cholecalciferol (vitamin D3) 25 mcg (1,000 unit) Capsule 1,000 unit PO QAM Qty: 30 0RF lorazepam 0.5 mg tablet 0.5 mg PO HS 3 Days Qty: 3 0RF Discontinued furosemide 20 mg tablet 20 mg PO 2XWK Rx Instructions: may take as needed for swelling Per daughter she takes 3 times a week. Mon,Wed, Wednesday Discharge Orders: Discharge Order (Routine); Ordered 10/12/22 Ordered By: Trenton Rogers Admission Data Admit Date/Time: 10/07/22 05:56 Attending Provider: Trenton Rogers Admit Provider: Getachew Dorman Primary Care Provider: Patti James Other Providers: Shelly Harmon ; Gio Hernandez ; López Morrison Other Interventions: Discharge Summary Assessment (RN) Last Done: 10/12/22 11:26 Coding Level of Care Code 59079 INP/OBS DISCH >30 MIN Diagnoses Diastolic CHF I50.30 Pneumonia J18.9 Ambulatory dysfunction R26.2 Depression F32.A Atrial fibrillation I48.91 Atrial fibrillation type: unspecified Frequent falls R29.6 Chronic kidney disease, stage IV (severe) N18.4 Pacemaker Z95.0 Gouty arthritis M10.9 Anemia D64.9 Anemia type: unspecified type Constipation K59.00 GERD (gastroesophageal reflux disease) K21.9
== END 2022-10-12 12:29 | DRG 291 ==
LOC: ED 03:45 → 2N 05:56 → SUATTDRO 05:56 → 2N 09:00 → 3N 10-11 22:41